=== PATIENT | male | born 1955 | race Two or more races ===

== ENCOUNTER 2016-03-31 | Inpatient (IN) | payer MEDICAID ==
[~2016-03-31] VITALS: Ht 180.3 cm; Wt 75.8 kg
[~2016-03-31] MED LIST: ACET-69 PO; ASCO500S2 GT; ATRO2DRO4 SL; BISA10SU8 RC; DIPH25TA25 GT; FOLI0.8T2 PO; GABA-532 PO; GLUC1KIT IM; HEPA0.5D3 SQ; INSU100V27 SQ; INSU3INS6 SQ; MOME17SP BNOSTRILS; MONT10TA22 PO; MYLANTA PO; NAPH1POW3 GT; ONDA4TAB10 PO; PROM6.25 PO; SITA50TA PO; SORB30SO2 PO; TEMA30CA PO; TYL2T PO
--- NOTE | 2016-04-02 08:00 | NUR ---
Please see resident's previous account [id number] for all assessments and nurses notes. Originally admitted on 01/31/2014.
[2016-04-02] MEDS ORDERED: PANTOPRAZOLE 40 MG TABLET.DR PO SCH (11:02)
[2016-04-02] MEDS ORDERED: BUDESONIDE RESPULE INH 0.5 MG/2 ML AMPUL.NEB IH PRN (11:02)
[2016-04-02] MEDS ORDERED: IPRATROPIUM NEB FS 0.5 MG/2.5 ML AMPUL.NEB IH SCH (11:02)
[2016-04-02] MEDS ORDERED: BLOOD SUGAR DIAGNOSTIC 1 EACH STRIP VI SCH (11:02)
[2016-04-02] MEDS ORDERED: DEXTROSE 50%-WATER 50 ML DISP.SYRIN IVP PRN (11:02)
[2016-04-02] MEDS ORDERED: ATROPINE SULFATE OPHTH SOLN 15 ML BOTTLE SL PRN (11:02)
[2016-04-02] MEDS ORDERED: GLUCAGON,HUMAN RECOMBINANT 1 MG/VIAL VIAL IM PRN (11:02)
[2016-04-02] MEDS ORDERED: TEMAZEPAM 30 MG CAPSULE PO SCH (11:02)
[2016-04-02] MEDS ORDERED: GABAPENTIN 300 MG CAPSULE PO SCH (11:02)
[2016-04-02] MEDS ORDERED: PROSOURCE / PROSTAT (PYXIS) 30 ML UDC PO SCH (11:02)
[2016-04-02] MEDS ORDERED: ALBUTEROL FS 2.5 MG/3 ML VIAL.NEB NEB SCH (11:02)
[2016-04-02] MEDS ORDERED: POLYVINYL ALCOHOL 15 ML BOTTLE EACHEYE SCH (11:02)
[2016-04-02] MEDS ORDERED: HYDROGEN PEROXIDE 480 ML BOTTLE TP PRN (11:02)
[2016-04-02] MEDS ORDERED: INSULIN DETEMIR 100 UNIT/ML CARTRIDGE SQ SCH (11:02)
[2016-04-02] MEDS ORDERED: TUBERCULIN,PURIF.PROT.DERIV. 5 TU/0.1 ML VIAL ID SCH (11:02)
[2016-04-02] MEDS ORDERED: SORBITOL SOLUTION 30 ML PO PRN (11:02)
[2016-04-02] MEDS ORDERED: MONTELUKAST SODIUM (10MG) 10 MG TABLET PO SCH (11:02)
--- NOTE | 2016-04-02 11:17 | NUR ---
Please see resident's previous account [id number] for Social Service assessments, evaluations and notes.
[2016-04-02] MEDS: BLOOD SUGAR DIAGNOSTIC 1 EACH STRIP VI SCH ×3 (12:00→22:15)
[2016-04-02] MEDS: GABAPENTIN 300 MG CAPSULE PO SCH ×2 (13:00→16:54)
[2016-04-02] MEDS: POLYVINYL ALCOHOL 15 ML BOTTLE EACHEYE SCH ×3 (13:00→21:00)
[2016-04-02] MEDS: PROSOURCE / PROSTAT (PYXIS) 30 ML UDC PO SCH ×2 (13:00→16:54)
[2016-04-02] MEDS: ALBUTEROL FS 2.5 MG/3 ML VIAL.NEB NEB SCH ×2 (14:03→19:36)
[2016-04-02] MEDS: IPRATROPIUM NEB FS 0.5 MG/2.5 ML AMPUL.NEB IH SCH ×2 (14:03→19:36)
[2016-04-02] MEDS: GUAIFENESIN/D-METHORPHAN HB 5 ML UDC PO PRN (14:32)
[2016-04-02] MEDS: diphenhydrAMINE HCL ELIX 25 MG/10 ML UDC PO PRN (14:32)
[2016-04-02] MEDS: MAG HYDROX/AL HYDROX/SIMETH 30 ML UDC PO PRN (14:33)
[2016-04-02 16:00] VITALS: BP 144/82
[2016-04-02] MEDS: INSULIN LISPRO/ASPART 100 UNIT/ML CARTRIDGE SQ PRN (16:57)
[2016-04-02] MEDS: BUDESONIDE RESPULE INH 0.5 MG/2 ML AMPUL.NEB IH SCH (19:37)
[2016-04-02 19:53] VITALS: BP 139/93
[2016-04-02] MEDS: HYDROGEN PEROXIDE 480 ML BOTTLE TP SCH (21:00)
[2016-04-02] MEDS: NEOMY SULF/BACITRAC ZN/POLY 15 GM TUBE TP SCH (21:00)
[2016-04-02] MEDS: ZINC OXIDE 56.7 GM TUBE TP SCH ×2 (21:00)
[2016-04-02] MEDS: MINERAL OIL/PETROL OINT 396 GM JAR TP SCH (21:00)
[2016-04-02] MEDS: Z GUARD REMEDY 4 OZ OINT TP SCH (21:00)
[2016-04-02] MEDS: MONTELUKAST SODIUM (10MG) 10 MG TABLET PO SCH (22:14)
[2016-04-02] MEDS: TEMAZEPAM 30 MG CAPSULE PO SCH (22:14)
[2016-04-02] MEDS: INSULIN DETEMIR 100 UNIT/ML CARTRIDGE SQ SCH (22:14)
[2016-04-03] MEDS: IPRATROPIUM NEB FS 0.5 MG/2.5 ML AMPUL.NEB IH SCH ×4 (01:48→19:57)
[2016-04-03] MEDS: ALBUTEROL FS 2.5 MG/3 ML VIAL.NEB NEB SCH ×4 (01:48→19:57)
[2016-04-03] MEDS: PANTOPRAZOLE 40 MG TABLET.DR PO SCH (06:42)
[2016-04-03] MEDS: BLOOD SUGAR DIAGNOSTIC 1 EACH STRIP VI SCH ×4 (07:30→21:18)
[2016-04-03] MEDS: INSULIN LISPRO/ASPART 100 UNIT/ML CARTRIDGE SQ PRN ×3 (07:30→16:37)
[2016-04-03] MEDS: diphenhydrAMINE HCL ELIX 25 MG/10 ML UDC PO PRN ×2 (07:37→16:56)
[2016-04-03] MEDS: TRAMADOL HCL 50 MG TABLET PO PRN (07:38)
[2016-04-03] MEDS: GUAIFENESIN/D-METHORPHAN HB 5 ML UDC PO PRN ×2 (07:38→16:56)
[2016-04-03 08:09] VITALS: BP 143/79
[2016-04-03] MEDS: BUDESONIDE RESPULE INH 0.5 MG/2 ML AMPUL.NEB IH SCH ×2 (08:11→20:30)
[2016-04-03] MEDS: HYDROGEN PEROXIDE 480 ML BOTTLE TP SCH ×2 (08:37→20:53)
[2016-04-03] MEDS: POLYVINYL ALCOHOL 15 ML BOTTLE EACHEYE SCH ×4 (08:37→20:53)
[2016-04-03] MEDS: GABAPENTIN 300 MG CAPSULE PO SCH ×3 (08:37→16:36)
[2016-04-03] MEDS: DOCUSATE SODIUM 100 MG CAPSULE PO SCH (08:37)
[2016-04-03] MEDS: PROSOURCE / PROSTAT (PYXIS) 30 ML UDC PO SCH ×3 (08:37→16:36)
[2016-04-03] MEDS: VIT B CMPLX 3/FA/VIT C/BIOTIN 1 TAB TABLET PO SCH (08:37)
[2016-04-03] MEDS: SITAGLIPTIN PHOSPHATE 25 MG TABLET PO SCH (08:37)
[2016-04-03] MEDS: ASCORBIC ACID 500 MG TABLET PO SCH (08:37)
[2016-04-03] MEDS: MINERAL OIL/PETROL OINT 396 GM JAR TP SCH ×2 (08:37→20:53)
[2016-04-03] MEDS: NEOMY SULF/BACITRAC ZN/POLY 15 GM TUBE TP SCH ×2 (08:38→20:53)
[2016-04-03] MEDS: ZINC OXIDE 56.7 GM TUBE TP SCH ×4 (08:38→20:53)
[2016-04-03] MEDS: Z GUARD REMEDY 4 OZ OINT TP SCH ×2 (08:38→20:53)
[2016-04-03 19:47] VITALS: BP 134/84
[2016-04-03] MEDS: TEMAZEPAM 30 MG CAPSULE PO SCH (21:17)
[2016-04-03] MEDS: MONTELUKAST SODIUM (10MG) 10 MG TABLET PO SCH (21:17)
[2016-04-03] MEDS: INSULIN DETEMIR 100 UNIT/ML CARTRIDGE SQ SCH (21:18)
[2016-04-04] MEDS: IPRATROPIUM NEB FS 0.5 MG/2.5 ML AMPUL.NEB IH SCH ×4 (01:43→20:11)
[2016-04-04] MEDS: ALBUTEROL FS 2.5 MG/3 ML VIAL.NEB NEB SCH ×4 (01:43→20:11)
[2016-04-04] MEDS: PANTOPRAZOLE 40 MG TABLET.DR PO SCH (06:00)
[2016-04-04] MEDS: BLOOD SUGAR DIAGNOSTIC 1 EACH STRIP VI SCH ×4 (07:35→21:09)
[2016-04-04 07:44] VITALS: BP 142/92
[2016-04-04] MEDS: DOCUSATE SODIUM 100 MG CAPSULE PO SCH (08:38)
[2016-04-04] MEDS: POLYVINYL ALCOHOL 15 ML BOTTLE EACHEYE SCH ×4 (08:38→20:14)
[2016-04-04] MEDS: SITAGLIPTIN PHOSPHATE 25 MG TABLET PO SCH (08:39)
[2016-04-04] MEDS: GABAPENTIN 300 MG CAPSULE PO SCH ×3 (08:40→17:20)
[2016-04-04] MEDS: HYDROGEN PEROXIDE 480 ML BOTTLE TP SCH ×2 (08:40→20:14)
[2016-04-04] MEDS: PROSOURCE / PROSTAT (PYXIS) 30 ML UDC PO SCH ×3 (08:40→17:20)
[2016-04-04] MEDS: VIT B CMPLX 3/FA/VIT C/BIOTIN 1 TAB TABLET PO SCH (08:40)
[2016-04-04] MEDS: ASCORBIC ACID 500 MG TABLET PO SCH (08:40)
[2016-04-04] MEDS: MINERAL OIL/PETROL OINT 396 GM JAR TP SCH ×2 (08:40→20:14)
[2016-04-04] MEDS: NEOMY SULF/BACITRAC ZN/POLY 15 GM TUBE TP SCH ×2 (08:41→20:15)
[2016-04-04] MEDS: Z GUARD REMEDY 4 OZ OINT TP SCH ×2 (08:41→20:15)
[2016-04-04] MEDS: ZINC OXIDE 56.7 GM TUBE TP SCH ×4 (08:41→20:15)
[2016-04-04] MEDS: GUAIFENESIN/D-METHORPHAN HB 5 ML UDC PO PRN ×2 (08:46→20:39)
[2016-04-04] MEDS: BUDESONIDE RESPULE INH 0.5 MG/2 ML AMPUL.NEB IH SCH ×2 (08:57→20:34)
[2016-04-04] MEDS: BISACODYL SUPP (10 MG) 10 MG/SUPP.RECT SUPP.RECT RC PRN (15:46)
[2016-04-04] MEDS: INSULIN LISPRO/ASPART 100 UNIT/ML CARTRIDGE SQ PRN (17:20)
[2016-04-04 20:19] VITALS: BP 152/97
--- NOTE | 2016-04-04 20:48 | NUR ---
Pt seen by Radha Petty MIRROR SILVERER,no new order.
[2016-04-04] MEDS: MONTELUKAST SODIUM (10MG) 10 MG TABLET PO SCH (21:08)
[2016-04-04] MEDS: TEMAZEPAM 30 MG CAPSULE PO SCH (21:08)
[2016-04-04] MEDS: INSULIN DETEMIR 100 UNIT/ML CARTRIDGE SQ SCH (21:09)
[2016-04-05] MEDS: IPRATROPIUM NEB FS 0.5 MG/2.5 ML AMPUL.NEB IH SCH ×4 (02:02→19:26)
[2016-04-05] MEDS: ALBUTEROL FS 2.5 MG/3 ML VIAL.NEB NEB SCH ×4 (02:02→19:26)
[2016-04-05] MEDS: PANTOPRAZOLE 40 MG TABLET.DR PO SCH (06:35)
[2016-04-05] MEDS: BLOOD SUGAR DIAGNOSTIC 1 EACH STRIP VI SCH ×4 (06:40→21:25)
[2016-04-05] MEDS: INSULIN LISPRO/ASPART 100 UNIT/ML CARTRIDGE SQ PRN ×3 (06:41→17:01)
[2016-04-05] MEDS: PROSOURCE / PROSTAT (PYXIS) 30 ML UDC PO SCH ×3 (08:10→17:01)
[2016-04-05] MEDS: VIT B CMPLX 3/FA/VIT C/BIOTIN 1 TAB TABLET PO SCH (08:10)
[2016-04-05] MEDS: ASCORBIC ACID 500 MG TABLET PO SCH (08:10)
[2016-04-05] MEDS: HYDROGEN PEROXIDE 480 ML BOTTLE TP SCH ×2 (08:10→21:24)
[2016-04-05] MEDS: NEOMY SULF/BACITRAC ZN/POLY 15 GM TUBE TP SCH ×2 (08:10→21:24)
[2016-04-05] MEDS: SITAGLIPTIN PHOSPHATE 25 MG TABLET PO SCH (08:10)
[2016-04-05] MEDS: POLYVINYL ALCOHOL 15 ML BOTTLE EACHEYE SCH ×4 (08:10→21:24)
[2016-04-05] MEDS: MINERAL OIL/PETROL OINT 396 GM JAR TP SCH ×2 (08:10→21:24)
[2016-04-05] MEDS: DOCUSATE SODIUM 100 MG CAPSULE PO SCH (08:10)
[2016-04-05] MEDS: GABAPENTIN 300 MG CAPSULE PO SCH ×3 (08:10→17:01)
[2016-04-05 08:11] VITALS: BP 153/84
[2016-04-05] MEDS: GUAIFENESIN/D-METHORPHAN HB 5 ML UDC PO PRN ×2 (08:11→21:27)
[2016-04-05] MEDS: ZINC OXIDE 56.7 GM TUBE TP SCH ×4 (08:11→21:25)
[2016-04-05] MEDS: Z GUARD REMEDY 4 OZ OINT TP SCH ×2 (08:11→21:25)
[2016-04-05] MEDS: diphenhydrAMINE HCL ELIX 25 MG/10 ML UDC PO PRN ×2 (08:11→21:26)
[2016-04-05] MEDS: BUDESONIDE RESPULE INH 0.5 MG/2 ML AMPUL.NEB IH SCH ×2 (09:52→21:40)
--- NOTE | 2016-04-05 10:47 | NUR ---
Seen and examined by Dr. Helen Prieto, made her aware of 3.6 lbs weight gain from last month (2015 177.4 - Mar 2016 181.0). Dr. Prieto explained to resident that he is gaining weight and the importance of cutting his fluid intake. Resident nodded in agreement with the importance of complying with the fluid restriction. He was also noted with thick dry flaky scalp, although he was taken to the shower room and SECOND CLASS WELDER removed some of the dry flaky scalp a lot more remain in his scalp. Resident requested to cut his hair short, SSD to arrange for haircut. Resident acknowledged the importance of taking a regular shower.
[2016-04-05 19:45] VITALS: BP 138/83
[2016-04-05] MEDS: MONTELUKAST SODIUM (10MG) 10 MG TABLET PO SCH (21:25)
[2016-04-05] MEDS: TEMAZEPAM 30 MG CAPSULE PO SCH (21:25)
[2016-04-05] MEDS: INSULIN DETEMIR 100 UNIT/ML CARTRIDGE SQ SCH (21:25)
[2016-04-05] MEDS: TRAMADOL HCL 50 MG TABLET PO PRN (21:57)
[2016-04-06] MEDS: IPRATROPIUM NEB FS 0.5 MG/2.5 ML AMPUL.NEB IH SCH ×4 (02:17→19:39)
[2016-04-06] MEDS: ALBUTEROL FS 2.5 MG/3 ML VIAL.NEB NEB SCH ×4 (02:17→19:39)
[2016-04-06] MEDS: PANTOPRAZOLE 40 MG TABLET.DR PO SCH (06:21)
[2016-04-06] MEDS: BLOOD SUGAR DIAGNOSTIC 1 EACH STRIP VI SCH ×4 (07:08→21:48)
[2016-04-06] MEDS: diphenhydrAMINE HCL ELIX 25 MG/10 ML UDC PO PRN ×3 (07:09→20:24)
[2016-04-06] MEDS: INSULIN LISPRO/ASPART 100 UNIT/ML CARTRIDGE SQ PRN ×3 (07:09→21:49)
[2016-04-06] MEDS: GUAIFENESIN/D-METHORPHAN HB 5 ML UDC PO PRN ×2 (07:31→21:51)
[2016-04-06] MEDS: TRAMADOL HCL 50 MG TABLET PO PRN ×2 (07:35→21:50)
[2016-04-06 07:41] VITALS: BP 146/88
[2016-04-06] MEDS: BUDESONIDE RESPULE INH 0.5 MG/2 ML AMPUL.NEB IH SCH ×2 (08:06→20:01)
[2016-04-06] MEDS: SITAGLIPTIN PHOSPHATE 25 MG TABLET PO SCH (09:22)
[2016-04-06] MEDS: DOCUSATE SODIUM 100 MG CAPSULE PO SCH (09:22)
[2016-04-06] MEDS: POLYVINYL ALCOHOL 15 ML BOTTLE EACHEYE SCH ×4 (09:22→21:47)
[2016-04-06] MEDS: NEOMY SULF/BACITRAC ZN/POLY 15 GM TUBE TP SCH ×2 (09:23→21:47)
[2016-04-06] MEDS: ZINC OXIDE 56.7 GM TUBE TP SCH ×4 (09:23→21:47)
[2016-04-06] MEDS: VIT B CMPLX 3/FA/VIT C/BIOTIN 1 TAB TABLET PO SCH (09:23)
[2016-04-06] MEDS: ASCORBIC ACID 500 MG TABLET PO SCH (09:23)
[2016-04-06] MEDS: Z GUARD REMEDY 4 OZ OINT TP SCH (09:23)
[2016-04-06] MEDS: PROSOURCE / PROSTAT (PYXIS) 30 ML UDC PO SCH ×3 (09:23→17:00)
[2016-04-06] MEDS: MINERAL OIL/PETROL OINT 396 GM JAR TP SCH ×2 (09:23→21:47)
[2016-04-06] MEDS: HYDROGEN PEROXIDE 480 ML BOTTLE TP SCH ×2 (09:23→21:47)
[2016-04-06] MEDS: GABAPENTIN 300 MG CAPSULE PO SCH ×3 (09:23→17:00)
--- NOTE | 2016-04-06 15:00 | NUR ---
Resident left for dialysis at this time, delay in schedule is due to availability of therapist from ambulance company. Resident stable in no signs of distress.
[2016-04-06 20:05] VITALS: BP 130/89
[2016-04-06] MEDS: MONTELUKAST SODIUM (10MG) 10 MG TABLET PO SCH (21:47)
[2016-04-06] MEDS: TEMAZEPAM 30 MG CAPSULE PO SCH (21:47)
[2016-04-06] MEDS: INSULIN DETEMIR 100 UNIT/ML CARTRIDGE SQ SCH (21:48)
[2016-04-07] MEDS: ALBUTEROL FS 2.5 MG/3 ML VIAL.NEB NEB SCH ×4 (02:03→20:04)
[2016-04-07] MEDS: IPRATROPIUM NEB FS 0.5 MG/2.5 ML AMPUL.NEB IH SCH ×4 (02:03→20:04)
[2016-04-07] MEDS: PANTOPRAZOLE 40 MG TABLET.DR PO SCH (06:00)
[2016-04-07] MEDS: INSULIN LISPRO/ASPART 100 UNIT/ML CARTRIDGE SQ PRN ×3 (07:04→21:17)
[2016-04-07] MEDS: BLOOD SUGAR DIAGNOSTIC 1 EACH STRIP VI SCH ×4 (07:04→21:16)
[2016-04-07 07:32] VITALS: BP 131/87
[2016-04-07] MEDS: BUDESONIDE RESPULE INH 0.5 MG/2 ML AMPUL.NEB IH SCH ×2 (08:09→19:51)
--- NOTE | 2016-04-07 08:20 | NUR ---
RT PATIENT RECEIVED TRACHED ON COOL AEROSOL VIA GUARDADO JORGE WELL. RESP TX'S GIVEN ORDERED JORGE WELL. TRACH SECURE AND IN PROPER POSITION. SX'D WITH MOD AMT PALE SEMITHICK SECRETIONS. B/S DIM RHONCHI. PATIENT IN NO DISTRESS OR SOB AT THIS TIME. BACK UP TRACH AND AMBU BAG AT [facility]. CONTINUE CURRENT PLAN OF RESP CARE.
[2016-04-07] MEDS: POLYVINYL ALCOHOL 15 ML BOTTLE EACHEYE SCH ×4 (08:47→20:03)
[2016-04-07] MEDS: GABAPENTIN 300 MG CAPSULE PO SCH ×3 (08:47→17:08)
[2016-04-07] MEDS: VIT B CMPLX 3/FA/VIT C/BIOTIN 1 TAB TABLET PO SCH (08:47)
[2016-04-07] MEDS: SITAGLIPTIN PHOSPHATE 25 MG TABLET PO SCH (08:47)
[2016-04-07] MEDS: ASCORBIC ACID 500 MG TABLET PO SCH (08:47)
[2016-04-07] MEDS: DOCUSATE SODIUM 100 MG CAPSULE PO SCH (08:47)
[2016-04-07] MEDS: PROSOURCE / PROSTAT (PYXIS) 30 ML UDC PO SCH ×3 (08:47→17:08)
[2016-04-07] MEDS: GUAIFENESIN/D-METHORPHAN HB 5 ML UDC PO PRN (09:00)
[2016-04-07] MEDS: ZINC OXIDE 56.7 GM TUBE TP SCH ×4 (09:41→20:04)
[2016-04-07] MEDS: MINERAL OIL/PETROL OINT 396 GM JAR TP SCH ×2 (09:41→20:03)
[2016-04-07] MEDS: HYDROGEN PEROXIDE 480 ML BOTTLE TP SCH ×2 (09:41→20:03)
[2016-04-07] MEDS: NEOMY SULF/BACITRAC ZN/POLY 15 GM TUBE TP SCH ×3 (09:41→20:04)
[2016-04-07] MEDS: diphenhydrAMINE HCL ELIX 25 MG/10 ML UDC PO PRN (15:00)
[2016-04-07 20:00] VITALS: BP 136/81
[2016-04-07] MEDS: TEMAZEPAM 30 MG CAPSULE PO SCH (21:15)
[2016-04-07] MEDS: MONTELUKAST SODIUM (10MG) 10 MG TABLET PO SCH (21:15)
[2016-04-07] MEDS: INSULIN DETEMIR 100 UNIT/ML CARTRIDGE SQ SCH (21:16)
[2016-04-08] MEDS: ALBUTEROL FS 2.5 MG/3 ML VIAL.NEB NEB SCH ×4 (01:45→19:51)
[2016-04-08] MEDS: IPRATROPIUM NEB FS 0.5 MG/2.5 ML AMPUL.NEB IH SCH ×4 (01:45→19:51)
[2016-04-08] MEDS: PANTOPRAZOLE 40 MG TABLET.DR PO SCH (05:48)
[2016-04-08] MEDS: BLOOD SUGAR DIAGNOSTIC 1 EACH STRIP VI SCH ×4 (08:00→21:07)
[2016-04-08] MEDS: INSULIN LISPRO/ASPART 100 UNIT/ML CARTRIDGE SQ PRN ×4 (08:00→21:07)
[2016-04-08] MEDS: BUDESONIDE RESPULE INH 0.5 MG/2 ML AMPUL.NEB IH SCH ×2 (08:04→20:03)
[2016-04-08] MEDS: DOCUSATE SODIUM 100 MG CAPSULE PO SCH (08:08)
[2016-04-08] MEDS: POLYVINYL ALCOHOL 15 ML BOTTLE EACHEYE SCH ×4 (08:08→21:06)
[2016-04-08 08:09] VITALS: BP 136/86
[2016-04-08] MEDS: MINERAL OIL/PETROL OINT 396 GM JAR TP SCH ×2 (08:09→21:06)
[2016-04-08] MEDS: ASCORBIC ACID 500 MG TABLET PO SCH (08:09)
[2016-04-08] MEDS: PROSOURCE / PROSTAT (PYXIS) 30 ML UDC PO SCH ×3 (08:09→17:28)
[2016-04-08] MEDS: SITAGLIPTIN PHOSPHATE 25 MG TABLET PO SCH (08:09)
[2016-04-08] MEDS: GABAPENTIN 300 MG CAPSULE PO SCH ×3 (08:09→17:28)
[2016-04-08] MEDS: VIT B CMPLX 3/FA/VIT C/BIOTIN 1 TAB TABLET PO SCH (08:09)
[2016-04-08] MEDS: GUAIFENESIN/D-METHORPHAN HB 5 ML UDC PO PRN ×2 (08:22→21:07)
--- NOTE | 2016-04-08 08:25 | NUR ---
RT PATIENT RECEIVED TRACHED ON COOL AEROSOL VIA GUARDADO JORGE WELL. RESP TX'S GIVEN ORDERED JORGE WELL. TRACH SECURE AND IN PROPER POSITION. SX'D WITH MOD AMT PALE SEMITHICK SECRETIONS. B/S DIM RHONCHI. PATIENT IN NO DISTRESS OR SOB AT THIS TIME. BACK UP TRACH AND AMBU BAG AT [facility]. CONTINUE CURRENT PLAN OF RESP CARE.
[2016-04-08] MEDS: diphenhydrAMINE HCL ELIX 25 MG/10 ML UDC PO PRN ×2 (08:38→21:07)
[2016-04-08] MEDS: ZINC OXIDE 56.7 GM TUBE TP SCH ×4 (09:00→21:07)
[2016-04-08] MEDS: NEOMY SULF/BACITRAC ZN/POLY 15 GM TUBE TP SCH ×2 (09:00→21:07)
[2016-04-08] MEDS: HYDROGEN PEROXIDE 480 ML BOTTLE TP SCH ×2 (09:00→21:06)
--- NOTE | 2016-04-08 14:15 | NUR ---
Kanwal spoke to resident who asked for legal resources. SW provided resident with legal resources (patent paralegal and pro gaudencio services). SW stated to resident that she can help him call but explained to him that vp software stated resident's big toe's are crooked because he has not walked for several years. Resident however believes that when previous vp software pulled off his toe nail, this affected his toes. Dr. Eli explained that resident has to start walking if he wants his feet to stay strong and become healthier. SW was told by RNA that resident was only able to tolerate 10 seconds of walking today and then wanted to be back in his bed. KANWAL spoke to resident and encouraged him to try walking with RNA assistance as much as he can tolerate. SW noted that she will check back in with resident to see if he wants to follow through with legal resources. Resident acknowledged information given. He was also able to sign off on admission paperwork.
[2016-04-08 20:07] VITALS: BP 138/68
[2016-04-08] MEDS: MONTELUKAST SODIUM (10MG) 10 MG TABLET PO SCH (21:07)
[2016-04-08] MEDS: TEMAZEPAM 30 MG CAPSULE PO SCH (21:07)
[2016-04-08] MEDS: INSULIN DETEMIR 100 UNIT/ML CARTRIDGE SQ SCH (21:21)
--- NOTE | 2016-04-08 21:21 | NUR ---
RATE CLERK Notes: Pt's BS 85. Levemir Insulin 10 units was held. Charge nurse made aware.
[2016-04-09] MEDS: ALBUTEROL FS 2.5 MG/3 ML VIAL.NEB NEB SCH ×4 (01:13→19:30)
[2016-04-09] MEDS: IPRATROPIUM NEB FS 0.5 MG/2.5 ML AMPUL.NEB IH SCH ×4 (01:13→19:30)
[2016-04-09] MEDS: BLOOD SUGAR DIAGNOSTIC 1 EACH STRIP VI SCH ×4 (06:39→21:21)
[2016-04-09] MEDS: PANTOPRAZOLE 40 MG TABLET.DR PO SCH (06:39)
[2016-04-09] MEDS: INSULIN LISPRO/ASPART 100 UNIT/ML CARTRIDGE SQ PRN ×3 (06:40→21:23)
[2016-04-09 07:45] VITALS: BP 136/89
[2016-04-09] MEDS: POLYVINYL ALCOHOL 15 ML BOTTLE EACHEYE SCH ×4 (08:13→21:19)
[2016-04-09] MEDS: VIT B CMPLX 3/FA/VIT C/BIOTIN 1 TAB TABLET PO SCH (08:13)
[2016-04-09] MEDS: SITAGLIPTIN PHOSPHATE 25 MG TABLET PO SCH (08:13)
[2016-04-09] MEDS: GABAPENTIN 300 MG CAPSULE PO SCH ×3 (08:13→17:00)
[2016-04-09] MEDS: PROSOURCE / PROSTAT (PYXIS) 30 ML UDC PO SCH ×3 (08:13→17:00)
[2016-04-09] MEDS: ASCORBIC ACID 500 MG TABLET PO SCH (08:13)
[2016-04-09] MEDS: DOCUSATE SODIUM 100 MG CAPSULE PO SCH (08:13)
[2016-04-09] MEDS: diphenhydrAMINE HCL ELIX 25 MG/10 ML UDC PO PRN (08:28)
[2016-04-09] MEDS: BUDESONIDE RESPULE INH 0.5 MG/2 ML AMPUL.NEB IH SCH ×2 (08:28→21:25)
--- NOTE | 2016-04-09 08:50 | NUR ---
SW accompanied RNA and LIAISON ENGINEER to resident's room as RNA was preparing to get resident ready to walk. Resident was not willing to participate in walking activities and stated to SW that his feet were hurting. He preferred to be placed back into his bed. Resident was willing to have RNA place resident's boots on his feet. Resident preparing to leave for dialysis.
[2016-04-09] MEDS: ZINC OXIDE 56.7 GM TUBE TP SCH ×4 (13:50→21:20)
[2016-04-09] MEDS: HYDROGEN PEROXIDE 480 ML BOTTLE TP SCH ×2 (13:50→21:19)
[2016-04-09] MEDS: MINERAL OIL/PETROL OINT 396 GM JAR TP SCH ×2 (13:50→21:19)
[2016-04-09] MEDS: NEOMY SULF/BACITRAC ZN/POLY 15 GM TUBE TP SCH ×2 (13:50→21:20)
[2016-04-09] MEDS: GUAIFENESIN/D-METHORPHAN HB 5 ML UDC PO PRN (14:41)
[2016-04-09 20:38] VITALS: BP 138/88
[2016-04-09] MEDS: TEMAZEPAM 30 MG CAPSULE PO SCH (21:20)
[2016-04-09] MEDS: MONTELUKAST SODIUM (10MG) 10 MG TABLET PO SCH (21:20)
[2016-04-09] MEDS: INSULIN DETEMIR 100 UNIT/ML CARTRIDGE SQ SCH (21:21)
[2016-04-10] MEDS: ALBUTEROL FS 2.5 MG/3 ML VIAL.NEB NEB SCH ×4 (00:56→19:30)
[2016-04-10] MEDS: IPRATROPIUM NEB FS 0.5 MG/2.5 ML AMPUL.NEB IH SCH ×4 (00:56→19:30)
[2016-04-10] MEDS: PANTOPRAZOLE 40 MG TABLET.DR PO SCH (05:42)
[2016-04-10] MEDS: BLOOD SUGAR DIAGNOSTIC 1 EACH STRIP VI SCH ×4 (07:06→21:34)
[2016-04-10 07:37] VITALS: BP 146/86
[2016-04-10] MEDS: BUDESONIDE RESPULE INH 0.5 MG/2 ML AMPUL.NEB IH SCH ×2 (08:59→20:36)
[2016-04-10] MEDS: ASCORBIC ACID 500 MG TABLET PO SCH (09:29)
[2016-04-10] MEDS: DOCUSATE SODIUM 100 MG CAPSULE PO SCH (09:29)
[2016-04-10] MEDS: POLYVINYL ALCOHOL 15 ML BOTTLE EACHEYE SCH ×4 (09:29→20:19)
[2016-04-10] MEDS: GABAPENTIN 300 MG CAPSULE PO SCH ×3 (09:29→17:08)
[2016-04-10] MEDS: PROSOURCE / PROSTAT (PYXIS) 30 ML UDC PO SCH ×3 (09:29→17:09)
[2016-04-10] MEDS: SITAGLIPTIN PHOSPHATE 25 MG TABLET PO SCH (09:29)
[2016-04-10] MEDS: VIT B CMPLX 3/FA/VIT C/BIOTIN 1 TAB TABLET PO SCH (09:29)
[2016-04-10] MEDS: HYDROGEN PEROXIDE 480 ML BOTTLE TP SCH ×2 (09:30→20:19)
[2016-04-10] MEDS: NEOMY SULF/BACITRAC ZN/POLY 15 GM TUBE TP SCH ×2 (09:30→20:19)
[2016-04-10] MEDS: ZINC OXIDE 56.7 GM TUBE TP SCH ×4 (09:30→20:19)
[2016-04-10] MEDS: MINERAL OIL/PETROL OINT 396 GM JAR TP SCH ×2 (09:30→20:19)
[2016-04-10] MEDS: INSULIN LISPRO/ASPART 100 UNIT/ML CARTRIDGE SQ PRN ×2 (11:56→21:39)
--- NOTE | 2016-04-10 14:00 | NUR ---
Seen and examined by Radha Petty NP, no new order given.
[2016-04-10 20:00] VITALS: BP 131/86
[2016-04-10] MEDS: diphenhydrAMINE HCL ELIX 25 MG/10 ML UDC PO PRN (20:19)
[2016-04-10] MEDS: MONTELUKAST SODIUM (10MG) 10 MG TABLET PO SCH (21:33)
[2016-04-10] MEDS: TEMAZEPAM 30 MG CAPSULE PO SCH (21:33)
[2016-04-10] MEDS: INSULIN DETEMIR 100 UNIT/ML CARTRIDGE SQ SCH (21:34)
[2016-04-11] MEDS: IPRATROPIUM NEB FS 0.5 MG/2.5 ML AMPUL.NEB IH SCH ×4 (01:44→20:16)
[2016-04-11] MEDS: ALBUTEROL FS 2.5 MG/3 ML VIAL.NEB NEB SCH ×4 (01:44→20:16)
[2016-04-11] MEDS: PANTOPRAZOLE 40 MG TABLET.DR PO SCH (05:35)
[2016-04-11 07:57] VITALS: BP 125/81
[2016-04-11] MEDS: BUDESONIDE RESPULE INH 0.5 MG/2 ML AMPUL.NEB IH SCH ×2 (08:20→20:16)
[2016-04-11] MEDS: ASCORBIC ACID 500 MG TABLET PO SCH (08:46)
[2016-04-11] MEDS: MINERAL OIL/PETROL OINT 396 GM JAR TP SCH ×2 (08:46→21:49)
[2016-04-11] MEDS: PROSOURCE / PROSTAT (PYXIS) 30 ML UDC PO SCH ×3 (08:46→16:17)
[2016-04-11] MEDS: SITAGLIPTIN PHOSPHATE 25 MG TABLET PO SCH (08:46)
[2016-04-11] MEDS: GABAPENTIN 300 MG CAPSULE PO SCH ×3 (08:46→16:17)
[2016-04-11] MEDS: HYDROGEN PEROXIDE 480 ML BOTTLE TP SCH ×2 (08:46→21:49)
[2016-04-11] MEDS: ZINC OXIDE 56.7 GM TUBE TP SCH ×4 (08:46→21:49)
[2016-04-11] MEDS: NEOMY SULF/BACITRAC ZN/POLY 15 GM TUBE TP SCH ×2 (08:46→21:49)
[2016-04-11] MEDS: POLYVINYL ALCOHOL 15 ML BOTTLE EACHEYE SCH ×4 (08:46→21:49)
[2016-04-11] MEDS: VIT B CMPLX 3/FA/VIT C/BIOTIN 1 TAB TABLET PO SCH (08:46)
[2016-04-11] MEDS: DOCUSATE SODIUM 100 MG CAPSULE PO SCH (08:46)
[2016-04-11] MEDS: GUAIFENESIN/D-METHORPHAN HB 5 ML UDC PO PRN (08:47)
[2016-04-11] MEDS: diphenhydrAMINE HCL ELIX 25 MG/10 ML UDC PO PRN (08:47)
[2016-04-11] MEDS: MAG HYDROX/AL HYDROX/SIMETH 30 ML UDC PO PRN (08:49)
[2016-04-11] MEDS: BLOOD SUGAR DIAGNOSTIC 1 EACH STRIP VI SCH ×3 (12:00→21:50)
[2016-04-11] MEDS: TRAMADOL HCL 50 MG TABLET PO PRN (14:16)
[2016-04-11] MEDS: BISACODYL SUPP (10 MG) 10 MG/SUPP.RECT SUPP.RECT RC PRN (14:16)
[2016-04-11] MEDS: INSULIN LISPRO/ASPART 100 UNIT/ML CARTRIDGE SQ PRN ×2 (16:44→21:51)
[2016-04-11 20:16] VITALS: BP 125/86
[2016-04-11] MEDS: MONTELUKAST SODIUM (10MG) 10 MG TABLET PO SCH (21:49)
[2016-04-11] MEDS: TEMAZEPAM 30 MG CAPSULE PO SCH (21:49)
[2016-04-11] MEDS: INSULIN DETEMIR 100 UNIT/ML CARTRIDGE SQ SCH (21:50)
[2016-04-12] MEDS: GUAIFENESIN/D-METHORPHAN HB 5 ML UDC PO PRN ×2 (00:31→21:53)
[2016-04-12] MEDS: IPRATROPIUM NEB FS 0.5 MG/2.5 ML AMPUL.NEB IH SCH ×4 (02:22→20:23)
[2016-04-12] MEDS: ALBUTEROL FS 2.5 MG/3 ML VIAL.NEB NEB SCH ×4 (02:23→20:23)
[2016-04-12] MEDS: PANTOPRAZOLE 40 MG TABLET.DR PO SCH (06:29)
[2016-04-12] MEDS: BLOOD SUGAR DIAGNOSTIC 1 EACH STRIP VI SCH ×4 (07:09→21:53)
[2016-04-12] MEDS: INSULIN LISPRO/ASPART 100 UNIT/ML CARTRIDGE SQ PRN ×2 (07:10→12:24)
[2016-04-12 07:56] VITALS: BP 129/83
[2016-04-12] MEDS: BUDESONIDE RESPULE INH 0.5 MG/2 ML AMPUL.NEB IH SCH ×2 (08:05→20:23)
--- NOTE | 2016-04-12 08:05 | NUR ---
RT PATIENT RECEIVED TRACHED ON COOL AEROSOL VIA T-BAR JORGE WELL. RESP TX'S GIVEN ORDERED JORGE WELL. TRACH SECURE AND IN PROPER POSITION. SX'D WITH SMALL AMT PALE SEMITHICK SECRETIONS. B/S DIM. PATIENT IN NO DISTRESS OR SOB AT THIS TIME. BACK UP TRACH AND AMBU BAG AT [facility]. CONTINUE CURRENT PLAN OF RESP CARE.
[2016-04-12] MEDS: MINERAL OIL/PETROL OINT 396 GM JAR TP SCH ×2 (08:38→21:51)
[2016-04-12] MEDS: VIT B CMPLX 3/FA/VIT C/BIOTIN 1 TAB TABLET PO SCH (08:38)
[2016-04-12] MEDS: ASCORBIC ACID 500 MG TABLET PO SCH (08:38)
[2016-04-12] MEDS: PROSOURCE / PROSTAT (PYXIS) 30 ML UDC PO SCH ×3 (08:38→17:08)
[2016-04-12] MEDS: POLYVINYL ALCOHOL 15 ML BOTTLE EACHEYE SCH ×4 (08:38→21:51)
[2016-04-12] MEDS: GABAPENTIN 300 MG CAPSULE PO SCH ×3 (08:38→17:08)
[2016-04-12] MEDS: HYDROGEN PEROXIDE 480 ML BOTTLE TP SCH ×2 (08:38→21:51)
[2016-04-12] MEDS: SITAGLIPTIN PHOSPHATE 25 MG TABLET PO SCH (08:38)
[2016-04-12] MEDS: DOCUSATE SODIUM 100 MG CAPSULE PO SCH (08:38)
[2016-04-12] MEDS: ZINC OXIDE 56.7 GM TUBE TP SCH ×4 (08:39→21:51)
[2016-04-12] MEDS: NEOMY SULF/BACITRAC ZN/POLY 15 GM TUBE TP SCH ×2 (08:39→21:51)
[2016-04-12] MEDS: diphenhydrAMINE HCL ELIX 25 MG/10 ML UDC PO PRN (18:16)
[2016-04-12 19:59] VITALS: BP 135/85
[2016-04-12] MEDS: TEMAZEPAM 30 MG CAPSULE PO SCH (21:52)
[2016-04-12] MEDS: MONTELUKAST SODIUM (10MG) 10 MG TABLET PO SCH (21:52)
[2016-04-12] MEDS: INSULIN DETEMIR 100 UNIT/ML CARTRIDGE SQ SCH (21:53)
[2016-04-12] MEDS: TRAMADOL HCL 50 MG TABLET PO PRN (21:54)
[2016-04-13] MEDS: IPRATROPIUM NEB FS 0.5 MG/2.5 ML AMPUL.NEB IH SCH ×4 (02:27→19:38)
[2016-04-13] MEDS: ALBUTEROL FS 2.5 MG/3 ML VIAL.NEB NEB SCH ×4 (02:27→19:38)
[2016-04-13] MEDS: diphenhydrAMINE HCL ELIX 25 MG/10 ML UDC PO PRN ×2 (06:36→21:09)
[2016-04-13] MEDS: PANTOPRAZOLE 40 MG TABLET.DR PO SCH (06:36)
[2016-04-13] MEDS: BLOOD SUGAR DIAGNOSTIC 1 EACH STRIP VI SCH ×4 (06:55→21:08)
[2016-04-13] MEDS: INSULIN LISPRO/ASPART 100 UNIT/ML CARTRIDGE SQ PRN ×3 (06:55→21:09)
[2016-04-13 07:49] VITALS: BP 136/84
[2016-04-13] MEDS: BUDESONIDE RESPULE INH 0.5 MG/2 ML AMPUL.NEB IH SCH ×2 (07:57→20:01)
[2016-04-13] MEDS: ASCORBIC ACID 500 MG TABLET PO SCH (08:41)
[2016-04-13] MEDS: PROSOURCE / PROSTAT (PYXIS) 30 ML UDC PO SCH ×3 (08:41→17:32)
[2016-04-13] MEDS: SITAGLIPTIN PHOSPHATE 25 MG TABLET PO SCH (08:41)
[2016-04-13] MEDS: VIT B CMPLX 3/FA/VIT C/BIOTIN 1 TAB TABLET PO SCH (08:41)
[2016-04-13] MEDS: GABAPENTIN 300 MG CAPSULE PO SCH ×3 (08:41→17:32)
[2016-04-13] MEDS: GUAIFENESIN/D-METHORPHAN HB 5 ML UDC PO PRN ×2 (08:41→21:09)
[2016-04-13] MEDS: POLYVINYL ALCOHOL 15 ML BOTTLE EACHEYE SCH ×4 (08:41→21:08)
[2016-04-13] MEDS: MINERAL OIL/PETROL OINT 396 GM JAR TP SCH ×2 (08:41→21:07)
[2016-04-13] MEDS: DOCUSATE SODIUM 100 MG CAPSULE PO SCH (08:41)
[2016-04-13] MEDS: HYDROGEN PEROXIDE 480 ML BOTTLE TP SCH ×2 (08:41→21:07)
[2016-04-13] MEDS: ZINC OXIDE 56.7 GM TUBE TP SCH ×4 (08:42→21:08)
[2016-04-13] MEDS: NEOMY SULF/BACITRAC ZN/POLY 15 GM TUBE TP SCH ×2 (08:42→21:08)
[2016-04-13 19:47] VITALS: BP 128/87
[2016-04-13] MEDS: TEMAZEPAM 30 MG CAPSULE PO SCH (21:07)
[2016-04-13] MEDS: MONTELUKAST SODIUM (10MG) 10 MG TABLET PO SCH (21:08)
[2016-04-13] MEDS: INSULIN DETEMIR 100 UNIT/ML CARTRIDGE SQ SCH (21:08)
[2016-04-14] MEDS: IPRATROPIUM NEB FS 0.5 MG/2.5 ML AMPUL.NEB IH SCH ×4 (01:24→19:16)
[2016-04-14] MEDS: ALBUTEROL FS 2.5 MG/3 ML VIAL.NEB NEB SCH ×4 (01:24→19:16)
[2016-04-14] MEDS: BLOOD SUGAR DIAGNOSTIC 1 EACH STRIP VI SCH ×4 (06:34→21:17)
[2016-04-14] MEDS: PANTOPRAZOLE 40 MG TABLET.DR PO SCH (06:34)
[2016-04-14] MEDS: INSULIN LISPRO/ASPART 100 UNIT/ML CARTRIDGE SQ PRN ×4 (06:35→21:17)
[2016-04-14 08:30] VITALS: BP 131/87
[2016-04-14] MEDS: POLYVINYL ALCOHOL 15 ML BOTTLE EACHEYE SCH ×4 (08:34→21:08)
[2016-04-14] MEDS: DOCUSATE SODIUM 100 MG CAPSULE PO SCH (08:34)
[2016-04-14] MEDS: SITAGLIPTIN PHOSPHATE 25 MG TABLET PO SCH (08:35)
[2016-04-14] MEDS: VIT B CMPLX 3/FA/VIT C/BIOTIN 1 TAB TABLET PO SCH (08:35)
[2016-04-14] MEDS: GABAPENTIN 300 MG CAPSULE PO SCH ×3 (08:35→16:47)
[2016-04-14] MEDS: PROSOURCE / PROSTAT (PYXIS) 30 ML UDC PO SCH ×3 (08:36→16:47)
[2016-04-14] MEDS: MINERAL OIL/PETROL OINT 396 GM JAR TP SCH ×2 (08:36→21:08)
[2016-04-14] MEDS: ASCORBIC ACID 500 MG TABLET PO SCH (08:36)
[2016-04-14] MEDS: ZINC OXIDE 56.7 GM TUBE TP SCH ×4 (08:37→21:09)
[2016-04-14] MEDS: NEOMY SULF/BACITRAC ZN/POLY 15 GM TUBE TP SCH ×2 (08:37→21:08)
[2016-04-14] MEDS: HYDROGEN PEROXIDE 480 ML BOTTLE TP SCH ×2 (08:37→21:08)
[2016-04-14] MEDS: BUDESONIDE RESPULE INH 0.5 MG/2 ML AMPUL.NEB IH SCH ×2 (09:16→21:20)
[2016-04-14] MEDS: BISACODYL SUPP (10 MG) 10 MG/SUPP.RECT SUPP.RECT RC PRN (17:00)
[2016-04-14 19:58] VITALS: BP 137/70
[2016-04-14] MEDS: GUAIFENESIN/D-METHORPHAN HB 5 ML UDC PO PRN (21:09)
[2016-04-14] MEDS: MONTELUKAST SODIUM (10MG) 10 MG TABLET PO SCH (21:09)
[2016-04-14] MEDS: TEMAZEPAM 30 MG CAPSULE PO SCH (21:09)
[2016-04-14] MEDS: diphenhydrAMINE HCL ELIX 25 MG/10 ML UDC PO PRN (21:09)
[2016-04-14] MEDS: INSULIN DETEMIR 100 UNIT/ML CARTRIDGE SQ SCH (21:17)
[2016-04-15] MEDS: IPRATROPIUM NEB FS 0.5 MG/2.5 ML AMPUL.NEB IH SCH ×4 (00:51→20:06)
[2016-04-15] MEDS: ALBUTEROL FS 2.5 MG/3 ML VIAL.NEB NEB SCH ×4 (00:51→20:06)
[2016-04-15] MEDS: diphenhydrAMINE HCL ELIX 25 MG/10 ML UDC PO PRN ×3 (03:16→23:40)
[2016-04-15] MEDS: PANTOPRAZOLE 40 MG TABLET.DR PO SCH (06:12)
[2016-04-15] MEDS: INSULIN LISPRO/ASPART 100 UNIT/ML CARTRIDGE SQ PRN ×4 (06:37→21:19)
[2016-04-15] MEDS: BLOOD SUGAR DIAGNOSTIC 1 EACH STRIP VI SCH ×4 (06:37→21:18)
[2016-04-15 07:45] VITALS: BP 142/94
[2016-04-15] MEDS: BUDESONIDE RESPULE INH 0.5 MG/2 ML AMPUL.NEB IH SCH ×2 (07:52→20:27)
[2016-04-15] MEDS: POLYVINYL ALCOHOL 15 ML BOTTLE EACHEYE SCH ×4 (08:35→21:18)
[2016-04-15] MEDS: GABAPENTIN 300 MG CAPSULE PO SCH ×3 (08:35→17:46)
[2016-04-15] MEDS: SITAGLIPTIN PHOSPHATE 25 MG TABLET PO SCH (08:35)
[2016-04-15] MEDS: DOCUSATE SODIUM 100 MG CAPSULE PO SCH (08:35)
[2016-04-15] MEDS: VIT B CMPLX 3/FA/VIT C/BIOTIN 1 TAB TABLET PO SCH (08:35)
[2016-04-15] MEDS: PROSOURCE / PROSTAT (PYXIS) 30 ML UDC PO SCH ×3 (08:35→17:46)
[2016-04-15] MEDS: ASCORBIC ACID 500 MG TABLET PO SCH (08:35)
[2016-04-15] MEDS: MINERAL OIL/PETROL OINT 396 GM JAR TP SCH ×2 (09:00→21:18)
[2016-04-15] MEDS: NEOMY SULF/BACITRAC ZN/POLY 15 GM TUBE TP SCH ×2 (09:00→21:18)
[2016-04-15] MEDS: ZINC OXIDE 56.7 GM TUBE TP SCH ×4 (09:00→21:18)
[2016-04-15] MEDS: HYDROGEN PEROXIDE 480 ML BOTTLE TP SCH ×2 (09:00→21:18)
[2016-04-15] MEDS: GUAIFENESIN/D-METHORPHAN HB 5 ML UDC PO PRN (18:40)
[2016-04-15 20:24] VITALS: BP 134/88
[2016-04-15] MEDS: MONTELUKAST SODIUM (10MG) 10 MG TABLET PO SCH (21:18)
[2016-04-15] MEDS: TEMAZEPAM 30 MG CAPSULE PO SCH (21:18)
[2016-04-15] MEDS: INSULIN DETEMIR 100 UNIT/ML CARTRIDGE SQ SCH (21:18)
[2016-04-16] MEDS: IPRATROPIUM NEB FS 0.5 MG/2.5 ML AMPUL.NEB IH SCH ×4 (02:02→19:30)
[2016-04-16] MEDS: ALBUTEROL FS 2.5 MG/3 ML VIAL.NEB NEB SCH ×4 (02:02→19:30)
[2016-04-16] MEDS: PANTOPRAZOLE 40 MG TABLET.DR PO SCH (06:54)
[2016-04-16] MEDS: INSULIN LISPRO/ASPART 100 UNIT/ML CARTRIDGE SQ PRN ×2 (06:54→17:34)
[2016-04-16] MEDS: BLOOD SUGAR DIAGNOSTIC 1 EACH STRIP VI SCH ×4 (06:54→21:37)
[2016-04-16] MEDS: GUAIFENESIN/D-METHORPHAN HB 5 ML UDC PO PRN (07:15)
[2016-04-16] MEDS: diphenhydrAMINE HCL ELIX 25 MG/10 ML UDC PO PRN (07:15)
[2016-04-16] MEDS: BUDESONIDE RESPULE INH 0.5 MG/2 ML AMPUL.NEB IH SCH ×2 (07:33→21:06)
[2016-04-16 08:06] VITALS: BP 138/84
[2016-04-16] MEDS: POLYVINYL ALCOHOL 15 ML BOTTLE EACHEYE SCH ×4 (08:09→21:36)
[2016-04-16] MEDS: DOCUSATE SODIUM 100 MG CAPSULE PO SCH (08:09)
[2016-04-16] MEDS: SITAGLIPTIN PHOSPHATE 25 MG TABLET PO SCH (08:09)
[2016-04-16] MEDS: VIT B CMPLX 3/FA/VIT C/BIOTIN 1 TAB TABLET PO SCH (08:10)
[2016-04-16] MEDS: ASCORBIC ACID 500 MG TABLET PO SCH (08:10)
[2016-04-16] MEDS: PROSOURCE / PROSTAT (PYXIS) 30 ML UDC PO SCH ×3 (08:10→17:32)
[2016-04-16] MEDS: GABAPENTIN 300 MG CAPSULE PO SCH ×3 (08:10→17:32)
[2016-04-16] MEDS: MINERAL OIL/PETROL OINT 396 GM JAR TP SCH ×2 (09:00→21:36)
[2016-04-16] MEDS: HYDROGEN PEROXIDE 480 ML BOTTLE TP SCH ×2 (15:00→21:36)
[2016-04-16] MEDS: ZINC OXIDE 56.7 GM TUBE TP SCH ×4 (15:00→21:36)
[2016-04-16] MEDS: NEOMY SULF/BACITRAC ZN/POLY 15 GM TUBE TP SCH ×2 (15:00→21:36)
[2016-04-16 19:47] VITALS: BP 124/75
[2016-04-16] MEDS: MONTELUKAST SODIUM (10MG) 10 MG TABLET PO SCH (21:36)
[2016-04-16] MEDS: INSULIN DETEMIR 100 UNIT/ML CARTRIDGE SQ SCH (21:36)
[2016-04-16] MEDS: TEMAZEPAM 30 MG CAPSULE PO SCH (21:36)
[2016-04-17] MEDS: ALBUTEROL FS 2.5 MG/3 ML VIAL.NEB NEB SCH ×4 (00:57→19:30)
[2016-04-17] MEDS: IPRATROPIUM NEB FS 0.5 MG/2.5 ML AMPUL.NEB IH SCH ×4 (00:57→19:30)
[2016-04-17] MEDS: PANTOPRAZOLE 40 MG TABLET.DR PO SCH (05:45)
[2016-04-17] MEDS: BLOOD SUGAR DIAGNOSTIC 1 EACH STRIP VI SCH ×4 (07:30→21:12)
[2016-04-17 07:50] VITALS: BP 123/69
[2016-04-17] MEDS: diphenhydrAMINE HCL ELIX 25 MG/10 ML UDC PO PRN ×2 (08:00→16:00)
[2016-04-17] MEDS: GUAIFENESIN/D-METHORPHAN HB 5 ML UDC PO PRN ×2 (08:00→16:00)
[2016-04-17] MEDS: BUDESONIDE RESPULE INH 0.5 MG/2 ML AMPUL.NEB IH SCH ×2 (08:40→21:36)
[2016-04-17] MEDS: HYDROGEN PEROXIDE 480 ML BOTTLE TP SCH ×2 (09:30→20:41)
[2016-04-17] MEDS: PROSOURCE / PROSTAT (PYXIS) 30 ML UDC PO SCH ×3 (09:30→16:53)
[2016-04-17] MEDS: ZINC OXIDE 56.7 GM TUBE TP SCH ×4 (09:30→20:42)
[2016-04-17] MEDS: SITAGLIPTIN PHOSPHATE 25 MG TABLET PO SCH (09:30)
[2016-04-17] MEDS: POLYVINYL ALCOHOL 15 ML BOTTLE EACHEYE SCH ×4 (09:30→20:41)
[2016-04-17] MEDS: DOCUSATE SODIUM 100 MG CAPSULE PO SCH (09:30)
[2016-04-17] MEDS: ASCORBIC ACID 500 MG TABLET PO SCH (09:30)
[2016-04-17] MEDS: GABAPENTIN 300 MG CAPSULE PO SCH ×3 (09:30→16:53)
[2016-04-17] MEDS: VIT B CMPLX 3/FA/VIT C/BIOTIN 1 TAB TABLET PO SCH (09:30)
[2016-04-17] MEDS: MINERAL OIL/PETROL OINT 396 GM JAR TP SCH ×2 (09:30→20:41)
[2016-04-17] MEDS: NEOMY SULF/BACITRAC ZN/POLY 15 GM TUBE TP SCH ×2 (09:30→20:42)
[2016-04-17] MEDS: INSULIN LISPRO/ASPART 100 UNIT/ML CARTRIDGE SQ PRN ×2 (12:16→21:13)
[2016-04-17 19:57] VITALS: BP 143/86
[2016-04-17] MEDS: TRAMADOL HCL 50 MG TABLET PO PRN (20:44)
[2016-04-17] MEDS: MONTELUKAST SODIUM (10MG) 10 MG TABLET PO SCH (21:11)
[2016-04-17] MEDS: TEMAZEPAM 30 MG CAPSULE PO SCH (21:11)
[2016-04-17] MEDS: INSULIN DETEMIR 100 UNIT/ML CARTRIDGE SQ SCH (21:12)
[2016-04-18] MEDS: IPRATROPIUM NEB FS 0.5 MG/2.5 ML AMPUL.NEB IH SCH ×4 (02:03→20:07)
[2016-04-18] MEDS: ALBUTEROL FS 2.5 MG/3 ML VIAL.NEB NEB SCH ×4 (02:03→20:07)
[2016-04-18] MEDS: PANTOPRAZOLE 40 MG TABLET.DR PO SCH (05:22)
[2016-04-18] MEDS: BLOOD SUGAR DIAGNOSTIC 1 EACH STRIP VI SCH ×4 (06:30→21:21)
[2016-04-18] MEDS: INSULIN LISPRO/ASPART 100 UNIT/ML CARTRIDGE SQ PRN ×3 (06:31→21:22)
[2016-04-18 07:47] VITALS: BP 132/86
[2016-04-18] MEDS: POLYVINYL ALCOHOL 15 ML BOTTLE EACHEYE SCH ×4 (08:30→21:20)
[2016-04-18] MEDS: PROSOURCE / PROSTAT (PYXIS) 30 ML UDC PO SCH ×3 (08:30→17:32)
[2016-04-18] MEDS: MINERAL OIL/PETROL OINT 396 GM JAR TP SCH ×2 (08:30→21:20)
[2016-04-18] MEDS: GABAPENTIN 300 MG CAPSULE PO SCH ×3 (08:30→17:32)
[2016-04-18] MEDS: SITAGLIPTIN PHOSPHATE 25 MG TABLET PO SCH (08:30)
[2016-04-18] MEDS: ASCORBIC ACID 500 MG TABLET PO SCH (08:30)
[2016-04-18] MEDS: HYDROGEN PEROXIDE 480 ML BOTTLE TP SCH ×2 (08:30→21:20)
[2016-04-18] MEDS: VIT B CMPLX 3/FA/VIT C/BIOTIN 1 TAB TABLET PO SCH (08:30)
[2016-04-18] MEDS: DOCUSATE SODIUM 100 MG CAPSULE PO SCH (08:30)
[2016-04-18] MEDS: NEOMY SULF/BACITRAC ZN/POLY 15 GM TUBE TP SCH ×2 (08:31→21:20)
[2016-04-18] MEDS: ZINC OXIDE 56.7 GM TUBE TP SCH ×4 (08:31→21:20)
[2016-04-18] MEDS: BUDESONIDE RESPULE INH 0.5 MG/2 ML AMPUL.NEB IH SCH ×2 (08:32→21:00)
[2016-04-18] MEDS: GUAIFENESIN/D-METHORPHAN HB 5 ML UDC PO PRN ×2 (10:02→18:01)
[2016-04-18] MEDS: diphenhydrAMINE HCL ELIX 25 MG/10 ML UDC PO PRN ×2 (10:02→18:01)
--- NOTE | 2016-04-18 13:45 | NUR ---
Resident returned back from dialysis treatment, condition stable in no acute signs and symptoms of distress and discomfort. Referred dietary recommendations from [facility] to Radha Petty Vit D3 53046 iu weekly and Prostat TID. Resident already on Prostat and per Radha to refer Vit D3 recommendation with the welt beater. Will notify MD in AM.
[2016-04-18 20:06] VITALS: BP 134/88
[2016-04-18] MEDS: TEMAZEPAM 30 MG CAPSULE PO SCH (21:20)
[2016-04-18] MEDS: MONTELUKAST SODIUM (10MG) 10 MG TABLET PO SCH (21:20)
[2016-04-18] MEDS: INSULIN DETEMIR 100 UNIT/ML CARTRIDGE SQ SCH (21:21)
[2016-04-18] MEDS: NAPROXEN 500 MG TABLET PO PRN (21:21)
[2016-04-19] MEDS: IPRATROPIUM NEB FS 0.5 MG/2.5 ML AMPUL.NEB IH SCH ×4 (01:02→20:34)
[2016-04-19] MEDS: ALBUTEROL FS 2.5 MG/3 ML VIAL.NEB NEB SCH ×4 (01:02→20:34)
[2016-04-19] MEDS: PANTOPRAZOLE 40 MG TABLET.DR PO SCH (05:26)
[2016-04-19] MEDS: BLOOD SUGAR DIAGNOSTIC 1 EACH STRIP VI SCH ×4 (06:33→21:16)
[2016-04-19] MEDS: INSULIN LISPRO/ASPART 100 UNIT/ML CARTRIDGE SQ PRN ×3 (06:34→21:17)
[2016-04-19 07:46] VITALS: BP 131/78
[2016-04-19] MEDS: BUDESONIDE RESPULE INH 0.5 MG/2 ML AMPUL.NEB IH SCH ×2 (08:14→20:35)
[2016-04-19] MEDS: SITAGLIPTIN PHOSPHATE 25 MG TABLET PO SCH (08:25)
[2016-04-19] MEDS: POLYVINYL ALCOHOL 15 ML BOTTLE EACHEYE SCH ×4 (08:25→20:24)
[2016-04-19] MEDS: VIT B CMPLX 3/FA/VIT C/BIOTIN 1 TAB TABLET PO SCH (08:25)
[2016-04-19] MEDS: PROSOURCE / PROSTAT (PYXIS) 30 ML UDC PO SCH ×3 (08:25→17:14)
[2016-04-19] MEDS: DOCUSATE SODIUM 100 MG CAPSULE PO SCH (08:25)
[2016-04-19] MEDS: GABAPENTIN 300 MG CAPSULE PO SCH ×3 (08:25→17:14)
[2016-04-19] MEDS: HYDROGEN PEROXIDE 480 ML BOTTLE TP SCH ×2 (08:26→20:24)
[2016-04-19] MEDS: MINERAL OIL/PETROL OINT 396 GM JAR TP SCH ×2 (08:26→20:24)
[2016-04-19] MEDS: ASCORBIC ACID 500 MG TABLET PO SCH (08:26)
[2016-04-19] MEDS: NEOMY SULF/BACITRAC ZN/POLY 15 GM TUBE TP SCH ×2 (08:26→20:24)
[2016-04-19] MEDS: ZINC OXIDE 56.7 GM TUBE TP SCH ×4 (08:26→20:25)
--- NOTE | 2016-04-19 13:51 | NUR ---
IDT meeting held, reviewed current, new and discontinued orders, drug reduction recommended for Restoril and will evaluate effectiveness. MD would like a most recent H&H level secondary to discontinuation of Heparin, will notify dialysis center if most recent H&H has been drawn and if not, will request level in dialysis in AM.
[2016-04-19] MEDS: BISACODYL SUPP (10 MG) 10 MG/SUPP.RECT SUPP.RECT RC PRN (16:13)
[2016-04-19] MEDS: NAPROXEN 500 MG TABLET PO PRN (20:24)
[2016-04-19 21:11] VITALS: BP 144/90
[2016-04-19] MEDS: MONTELUKAST SODIUM (10MG) 10 MG TABLET PO SCH (21:15)
[2016-04-19] MEDS: TEMAZEPAM 30 MG CAPSULE PO SCH (21:15)
[2016-04-19] MEDS: INSULIN DETEMIR 100 UNIT/ML CARTRIDGE SQ SCH (21:16)
[2016-04-19] MEDS: diphenhydrAMINE HCL ELIX 25 MG/10 ML UDC PO PRN (21:16)
[2016-04-20] MEDS: IPRATROPIUM NEB FS 0.5 MG/2.5 ML AMPUL.NEB IH SCH ×4 (01:45→20:15)
[2016-04-20] MEDS: ALBUTEROL FS 2.5 MG/3 ML VIAL.NEB NEB SCH ×4 (01:45→20:15)
[2016-04-20] MEDS: PANTOPRAZOLE 40 MG TABLET.DR PO SCH (05:21)
[2016-04-20] MEDS: BLOOD SUGAR DIAGNOSTIC 1 EACH STRIP VI SCH ×4 (06:33→21:17)
[2016-04-20] MEDS: INSULIN LISPRO/ASPART 100 UNIT/ML CARTRIDGE SQ PRN ×3 (06:34→21:17)
[2016-04-20 08:01] VITALS: BP 122/79
[2016-04-20] MEDS: VIT B CMPLX 3/FA/VIT C/BIOTIN 1 TAB TABLET PO SCH (08:22)
[2016-04-20] MEDS: NEOMY SULF/BACITRAC ZN/POLY 15 GM TUBE TP SCH ×2 (08:22→20:23)
[2016-04-20] MEDS: HYDROGEN PEROXIDE 480 ML BOTTLE TP SCH ×2 (08:22→20:22)
[2016-04-20] MEDS: DOCUSATE SODIUM 100 MG CAPSULE PO SCH (08:22)
[2016-04-20] MEDS: POLYVINYL ALCOHOL 15 ML BOTTLE EACHEYE SCH ×4 (08:22→20:22)
[2016-04-20] MEDS: ASCORBIC ACID 500 MG TABLET PO SCH (08:22)
[2016-04-20] MEDS: SITAGLIPTIN PHOSPHATE 25 MG TABLET PO SCH (08:22)
[2016-04-20] MEDS: MINERAL OIL/PETROL OINT 396 GM JAR TP SCH ×2 (08:22→20:22)
[2016-04-20] MEDS: GABAPENTIN 300 MG CAPSULE PO SCH ×3 (08:22→17:56)
[2016-04-20] MEDS: PROSOURCE / PROSTAT (PYXIS) 30 ML UDC PO SCH ×3 (08:22→17:56)
[2016-04-20] MEDS: ZINC OXIDE 56.7 GM TUBE TP SCH ×4 (08:23→20:23)
[2016-04-20] MEDS: BUDESONIDE RESPULE INH 0.5 MG/2 ML AMPUL.NEB IH SCH ×2 (09:02→20:26)
--- NOTE | 2016-04-20 13:36 | NUR ---
UNABLE TO GIVE TX, PT OUT FOR DIALYSIS
--- NOTE | 2016-04-20 13:36 | NUR ---
PT OUT FOR DIALYSIS
[2016-04-20] MEDS: GUAIFENESIN/D-METHORPHAN HB 5 ML UDC PO PRN (14:28)
[2016-04-20 20:12] VITALS: BP 133/88
[2016-04-20] MEDS: diphenhydrAMINE HCL ELIX 25 MG/10 ML UDC PO PRN (20:23)
[2016-04-20] MEDS: NAPROXEN 500 MG TABLET PO PRN (20:23)
[2016-04-20] MEDS: MONTELUKAST SODIUM (10MG) 10 MG TABLET PO SCH (21:16)
[2016-04-20] MEDS: TEMAZEPAM 30 MG CAPSULE PO SCH (21:16)
[2016-04-20] MEDS: INSULIN DETEMIR 100 UNIT/ML CARTRIDGE SQ SCH (21:17)
[2016-04-21] MEDS: ALBUTEROL FS 2.5 MG/3 ML VIAL.NEB NEB SCH ×4 (02:37→19:47)
[2016-04-21] MEDS: IPRATROPIUM NEB FS 0.5 MG/2.5 ML AMPUL.NEB IH SCH ×4 (02:37→19:47)
[2016-04-21] MEDS: PANTOPRAZOLE 40 MG TABLET.DR PO SCH (05:24)
[2016-04-21] MEDS: BLOOD SUGAR DIAGNOSTIC 1 EACH STRIP VI SCH ×4 (06:46→21:15)
[2016-04-21] MEDS: INSULIN LISPRO/ASPART 100 UNIT/ML CARTRIDGE SQ PRN ×3 (06:47→17:28)
[2016-04-21 07:54] VITALS: BP 135/85
[2016-04-21] MEDS: BUDESONIDE RESPULE INH 0.5 MG/2 ML AMPUL.NEB IH SCH ×2 (09:02→19:47)
[2016-04-21] MEDS: POLYVINYL ALCOHOL 15 ML BOTTLE EACHEYE SCH ×4 (09:37→21:14)
[2016-04-21] MEDS: GABAPENTIN 300 MG CAPSULE PO SCH ×3 (09:38→17:27)
[2016-04-21] MEDS: VIT B CMPLX 3/FA/VIT C/BIOTIN 1 TAB TABLET PO SCH (09:38)
[2016-04-21] MEDS: SITAGLIPTIN PHOSPHATE 25 MG TABLET PO SCH (09:38)
[2016-04-21] MEDS: DOCUSATE SODIUM 100 MG CAPSULE PO SCH (09:38)
[2016-04-21] MEDS: PROSOURCE / PROSTAT (PYXIS) 30 ML UDC PO SCH ×3 (09:42→17:27)
[2016-04-21] MEDS: ASCORBIC ACID 500 MG TABLET PO SCH (09:42)
[2016-04-21] MEDS: diphenhydrAMINE HCL ELIX 25 MG/10 ML UDC PO PRN (09:43)
[2016-04-21] MEDS: NEOMY SULF/BACITRAC ZN/POLY 15 GM TUBE TP SCH ×2 (09:44→21:15)
[2016-04-21] MEDS: HYDROGEN PEROXIDE 480 ML BOTTLE TP SCH ×2 (09:44→21:15)
[2016-04-21] MEDS: MINERAL OIL/PETROL OINT 396 GM JAR TP SCH ×2 (09:44→21:15)
[2016-04-21] MEDS: ZINC OXIDE 56.7 GM TUBE TP SCH ×4 (09:45→21:15)
[2016-04-21 20:24] VITALS: BP 129/56
[2016-04-21] MEDS: MONTELUKAST SODIUM (10MG) 10 MG TABLET PO SCH (21:15)
[2016-04-21] MEDS: INSULIN DETEMIR 100 UNIT/ML CARTRIDGE SQ SCH (21:15)
[2016-04-21] MEDS: TEMAZEPAM 30 MG CAPSULE PO SCH (21:15)
[2016-04-22] MEDS: ALBUTEROL FS 2.5 MG/3 ML VIAL.NEB NEB SCH ×4 (02:02→20:28)
[2016-04-22] MEDS: IPRATROPIUM NEB FS 0.5 MG/2.5 ML AMPUL.NEB IH SCH ×4 (02:02→20:28)
[2016-04-22] MEDS: PANTOPRAZOLE 40 MG TABLET.DR PO SCH (05:55)
[2016-04-22 07:44] VITALS: BP 133/82
[2016-04-22] MEDS: SITAGLIPTIN PHOSPHATE 25 MG TABLET PO SCH (08:02)
[2016-04-22] MEDS: BLOOD SUGAR DIAGNOSTIC 1 EACH STRIP VI SCH ×4 (08:02→21:21)
[2016-04-22] MEDS: POLYVINYL ALCOHOL 15 ML BOTTLE EACHEYE SCH ×4 (08:02→21:19)
[2016-04-22] MEDS: VIT B CMPLX 3/FA/VIT C/BIOTIN 1 TAB TABLET PO SCH (08:02)
[2016-04-22] MEDS: DOCUSATE SODIUM 100 MG CAPSULE PO SCH (08:02)
[2016-04-22] MEDS: GABAPENTIN 300 MG CAPSULE PO SCH ×3 (08:02→17:15)
[2016-04-22] MEDS: ASCORBIC ACID 500 MG TABLET PO SCH (08:03)
[2016-04-22] MEDS: PROSOURCE / PROSTAT (PYXIS) 30 ML UDC PO SCH ×3 (08:03→17:00)
[2016-04-22] MEDS: HYDROGEN PEROXIDE 480 ML BOTTLE TP SCH ×2 (08:03→21:20)
[2016-04-22] MEDS: MINERAL OIL/PETROL OINT 396 GM JAR TP SCH ×2 (08:03→21:20)
[2016-04-22] MEDS: ZINC OXIDE 56.7 GM TUBE TP SCH ×4 (08:03→21:20)
--- NOTE | 2016-04-22 09:25 | NUR ---
Seen and examined by Dr. Helen Prieto, and made aware of [facility]'s dietary recommendations to give Vit D3 50,000 IU Q weekly due to low Vit D level 6.0. She agreed with the recommendations. All orders noted and carried out.
[2016-04-22] MEDS: BUDESONIDE RESPULE INH 0.5 MG/2 ML AMPUL.NEB IH SCH ×3 (09:57→20:28)
--- NOTE | 2016-04-22 10:27 | NUR ---
Seen and examined by Dr. Gardner, NNO given.
[2016-04-22] MEDS: INSULIN LISPRO/ASPART 100 UNIT/ML CARTRIDGE SQ PRN (12:00)
[2016-04-22] MEDS: BISACODYL SUPP (10 MG) 10 MG/SUPP.RECT SUPP.RECT RC PRN (14:23)
[2016-04-22 20:04] VITALS: BP 126/76
[2016-04-22] MEDS: MONTELUKAST SODIUM (10MG) 10 MG TABLET PO SCH (21:20)
[2016-04-22] MEDS: TEMAZEPAM 15 MG CAPSULE PO SCH (21:20)
[2016-04-22] MEDS: HEPARIN SODIUM, PORCINE 5000 UNITS/1 ML VIAL SQ SCH (21:20)
[2016-04-22] MEDS: INSULIN DETEMIR 100 UNIT/ML CARTRIDGE SQ SCH (21:21)
[2016-04-23] MEDS: IPRATROPIUM NEB FS 0.5 MG/2.5 ML AMPUL.NEB IH SCH ×4 (01:30→20:08)
[2016-04-23] MEDS: ALBUTEROL FS 2.5 MG/3 ML VIAL.NEB NEB SCH ×4 (01:30→20:08)
[2016-04-23] MEDS: PANTOPRAZOLE 40 MG TABLET.DR PO SCH (06:01)
[2016-04-23] MEDS: BLOOD SUGAR DIAGNOSTIC 1 EACH STRIP VI SCH ×4 (07:30→21:31)
[2016-04-23 08:07] VITALS: BP 141/88
[2016-04-23] MEDS: GABAPENTIN 300 MG CAPSULE PO SCH ×3 (08:34→17:10)
[2016-04-23] MEDS: POLYVINYL ALCOHOL 15 ML BOTTLE EACHEYE SCH ×4 (08:34→21:29)
[2016-04-23] MEDS: VIT B CMPLX 3/FA/VIT C/BIOTIN 1 TAB TABLET PO SCH (08:34)
[2016-04-23] MEDS: DOCUSATE SODIUM 100 MG CAPSULE PO SCH (08:34)
[2016-04-23] MEDS: ASCORBIC ACID 500 MG TABLET PO SCH (08:34)
[2016-04-23] MEDS: PROSOURCE / PROSTAT (PYXIS) 30 ML UDC PO SCH ×3 (08:34→17:11)
[2016-04-23] MEDS: SITAGLIPTIN PHOSPHATE 25 MG TABLET PO SCH (08:34)
[2016-04-23] MEDS: HEPARIN SODIUM, PORCINE 5000 UNITS/1 ML VIAL SQ SCH ×2 (08:35→21:30)
[2016-04-23] MEDS: HYDROGEN PEROXIDE 480 ML BOTTLE TP SCH ×2 (08:35→21:30)
[2016-04-23] MEDS: MINERAL OIL/PETROL OINT 396 GM JAR TP SCH ×2 (08:35→21:30)
[2016-04-23] MEDS: ZINC OXIDE 56.7 GM TUBE TP SCH ×4 (08:35→21:30)
[2016-04-23] MEDS: diphenhydrAMINE HCL ELIX 25 MG/10 ML UDC PO PRN ×2 (08:40→18:18)
[2016-04-23] MEDS: GUAIFENESIN/D-METHORPHAN HB 5 ML UDC PO PRN (08:40)
[2016-04-23] MEDS: ERGOCALCIFEROL (VITAMIN D 2) 50,000 UNIT CAPSULE PO SCH (09:00)
[2016-04-23] MEDS: BUDESONIDE RESPULE INH 0.5 MG/2 ML AMPUL.NEB IH SCH (09:00)
[2016-04-23] MEDS: TRAMADOL HCL 50 MG TABLET PO PRN (14:22)
[2016-04-23] MEDS: INSULIN LISPRO/ASPART 100 UNIT/ML CARTRIDGE SQ PRN (17:12)
[2016-04-23 19:50] VITALS: BP 138/77
[2016-04-23] MEDS: INSULIN DETEMIR 100 UNIT/ML CARTRIDGE SQ SCH (21:31)
[2016-04-23] MEDS: TEMAZEPAM 15 MG CAPSULE PO SCH (21:31)
[2016-04-23] MEDS: MONTELUKAST SODIUM (10MG) 10 MG TABLET PO SCH (21:31)
[2016-04-24] MEDS: IPRATROPIUM NEB FS 0.5 MG/2.5 ML AMPUL.NEB IH SCH ×4 (01:05→19:56)
[2016-04-24] MEDS: ALBUTEROL FS 2.5 MG/3 ML VIAL.NEB NEB SCH ×4 (01:05→19:56)
[2016-04-24] MEDS: PANTOPRAZOLE 40 MG TABLET.DR PO SCH (06:01)
[2016-04-24] MEDS: BLOOD SUGAR DIAGNOSTIC 1 EACH STRIP VI SCH ×4 (07:16→21:44)
[2016-04-24 07:56] VITALS: BP 145/94
[2016-04-24] MEDS: GABAPENTIN 300 MG CAPSULE PO SCH ×3 (08:28→17:21)
[2016-04-24] MEDS: HEPARIN SODIUM, PORCINE 5000 UNITS/1 ML VIAL SQ SCH ×2 (08:28→21:43)
[2016-04-24] MEDS: SITAGLIPTIN PHOSPHATE 25 MG TABLET PO SCH (08:28)
[2016-04-24] MEDS: POLYVINYL ALCOHOL 15 ML BOTTLE EACHEYE SCH ×4 (08:28→21:43)
[2016-04-24] MEDS: DOCUSATE SODIUM 100 MG CAPSULE PO SCH (08:28)
[2016-04-24] MEDS: VIT B CMPLX 3/FA/VIT C/BIOTIN 1 TAB TABLET PO SCH (08:28)
[2016-04-24] MEDS: PROSOURCE / PROSTAT (PYXIS) 30 ML UDC PO SCH ×3 (08:28→17:22)
[2016-04-24] MEDS: ASCORBIC ACID 500 MG TABLET PO SCH (08:28)
[2016-04-24] MEDS: MINERAL OIL/PETROL OINT 396 GM JAR TP SCH ×2 (08:29→21:43)
[2016-04-24] MEDS: ZINC OXIDE 56.7 GM TUBE TP SCH ×4 (08:29→21:43)
[2016-04-24] MEDS: HYDROGEN PEROXIDE 480 ML BOTTLE TP SCH ×2 (08:29→21:43)
[2016-04-24] MEDS: diphenhydrAMINE HCL ELIX 25 MG/10 ML UDC PO PRN ×2 (09:00→16:00)
[2016-04-24] MEDS: BUDESONIDE RESPULE INH 0.5 MG/2 ML AMPUL.NEB IH SCH ×2 (09:00→19:57)
[2016-04-24] MEDS: GUAIFENESIN/D-METHORPHAN HB 5 ML UDC PO PRN ×3 (09:00→23:37)
[2016-04-24] MEDS: BISACODYL SUPP (10 MG) 10 MG/SUPP.RECT SUPP.RECT RC PRN (11:59)
[2016-04-24] MEDS: INSULIN LISPRO/ASPART 100 UNIT/ML CARTRIDGE SQ PRN (12:01)
[2016-04-24 20:09] VITALS: BP 137/80
[2016-04-24] MEDS: TEMAZEPAM 15 MG CAPSULE PO SCH (21:43)
[2016-04-24] MEDS: MONTELUKAST SODIUM (10MG) 10 MG TABLET PO SCH (21:44)
[2016-04-24] MEDS: INSULIN DETEMIR 100 UNIT/ML CARTRIDGE SQ SCH (21:44)
[2016-04-25] MEDS: ALBUTEROL FS 2.5 MG/3 ML VIAL.NEB NEB SCH ×4 (00:55→19:42)
[2016-04-25] MEDS: IPRATROPIUM NEB FS 0.5 MG/2.5 ML AMPUL.NEB IH SCH ×4 (00:55→19:42)
[2016-04-25] MEDS: PANTOPRAZOLE 40 MG TABLET.DR PO SCH (06:08)
[2016-04-25] MEDS: BLOOD SUGAR DIAGNOSTIC 1 EACH STRIP VI SCH ×4 (06:59→21:38)
[2016-04-25 07:48] VITALS: BP 143/88
[2016-04-25] MEDS: BUDESONIDE RESPULE INH 0.5 MG/2 ML AMPUL.NEB IH SCH ×2 (09:30→19:42)
[2016-04-25] MEDS: VIT B CMPLX 3/FA/VIT C/BIOTIN 1 TAB TABLET PO SCH (09:31)
[2016-04-25] MEDS: POLYVINYL ALCOHOL 15 ML BOTTLE EACHEYE SCH ×4 (09:31→21:35)
[2016-04-25] MEDS: DOCUSATE SODIUM 100 MG CAPSULE PO SCH (09:31)
[2016-04-25] MEDS: SITAGLIPTIN PHOSPHATE 25 MG TABLET PO SCH (09:31)
[2016-04-25] MEDS: ASCORBIC ACID 500 MG TABLET PO SCH (09:32)
[2016-04-25] MEDS: PROSOURCE / PROSTAT (PYXIS) 30 ML UDC PO SCH ×3 (09:32→17:35)
[2016-04-25] MEDS: MINERAL OIL/PETROL OINT 396 GM JAR TP SCH ×2 (09:32→21:35)
[2016-04-25] MEDS: HYDROGEN PEROXIDE 480 ML BOTTLE TP SCH ×2 (09:32→21:36)
[2016-04-25] MEDS: HEPARIN SODIUM, PORCINE 5000 UNITS/1 ML VIAL SQ SCH ×2 (09:32→21:35)
[2016-04-25] MEDS: ZINC OXIDE 56.7 GM TUBE TP SCH ×4 (09:32→21:36)
[2016-04-25] MEDS: GABAPENTIN 300 MG CAPSULE PO SCH ×3 (09:32→17:35)
[2016-04-25] MEDS: diphenhydrAMINE HCL ELIX 25 MG/10 ML UDC PO PRN ×2 (15:13→21:37)
--- NOTE | 2016-04-25 16:17 | NUR ---
Seen and examined by Radha Petty, YARDER OPERATOR, NNO given.
[2016-04-25] MEDS: INSULIN LISPRO/ASPART 100 UNIT/ML CARTRIDGE SQ PRN (17:37)
[2016-04-25] MEDS: GUAIFENESIN/D-METHORPHAN HB 5 ML UDC PO PRN (18:57)
[2016-04-25 19:54] VITALS: BP 144/84
[2016-04-25] MEDS: MONTELUKAST SODIUM (10MG) 10 MG TABLET PO SCH (21:36)
[2016-04-25] MEDS: TEMAZEPAM 15 MG CAPSULE PO SCH (21:36)
[2016-04-25] MEDS: INSULIN DETEMIR 100 UNIT/ML CARTRIDGE SQ SCH (21:38)
[2016-04-26] MEDS: ALBUTEROL FS 2.5 MG/3 ML VIAL.NEB NEB SCH ×4 (01:01→20:14)
[2016-04-26] MEDS: IPRATROPIUM NEB FS 0.5 MG/2.5 ML AMPUL.NEB IH SCH ×4 (01:01→20:14)
[2016-04-26] MEDS: PANTOPRAZOLE 40 MG TABLET.DR PO SCH (05:36)
[2016-04-26] MEDS: INSULIN LISPRO/ASPART 100 UNIT/ML CARTRIDGE SQ PRN ×3 (06:38→21:13)
[2016-04-26] MEDS: BLOOD SUGAR DIAGNOSTIC 1 EACH STRIP VI SCH ×4 (06:48→21:12)
[2016-04-26 08:10] VITALS: BP 138/80
[2016-04-26] MEDS: POLYVINYL ALCOHOL 15 ML BOTTLE EACHEYE SCH ×4 (08:53→20:52)
[2016-04-26] MEDS: DOCUSATE SODIUM 100 MG CAPSULE PO SCH (08:53)
[2016-04-26] MEDS: GABAPENTIN 300 MG CAPSULE PO SCH ×3 (08:53→17:00)
[2016-04-26] MEDS: HEPARIN SODIUM, PORCINE 5000 UNITS/1 ML VIAL SQ SCH ×2 (08:53→20:53)
[2016-04-26] MEDS: ASCORBIC ACID 500 MG TABLET PO SCH (08:53)
[2016-04-26] MEDS: VIT B CMPLX 3/FA/VIT C/BIOTIN 1 TAB TABLET PO SCH (08:53)
[2016-04-26] MEDS: PROSOURCE / PROSTAT (PYXIS) 30 ML UDC PO SCH ×3 (08:53→17:00)
[2016-04-26] MEDS: SITAGLIPTIN PHOSPHATE 25 MG TABLET PO SCH (08:53)
[2016-04-26] MEDS: MINERAL OIL/PETROL OINT 396 GM JAR TP SCH ×2 (08:54→20:53)
[2016-04-26] MEDS: HYDROGEN PEROXIDE 480 ML BOTTLE TP SCH ×2 (08:54→20:53)
[2016-04-26] MEDS: ZINC OXIDE 56.7 GM TUBE TP SCH ×4 (08:54→20:53)
[2016-04-26] MEDS: diphenhydrAMINE HCL ELIX 25 MG/10 ML UDC PO PRN ×3 (08:57→22:03)
[2016-04-26] MEDS: GUAIFENESIN/D-METHORPHAN HB 5 ML UDC PO PRN (08:57)
[2016-04-26] MEDS: BUDESONIDE RESPULE INH 0.5 MG/2 ML AMPUL.NEB IH SCH ×2 (09:01→20:14)
[2016-04-26] MEDS: TRAMADOL HCL 50 MG TABLET PO PRN (15:28)
[2016-04-26] MEDS: INSULIN DETEMIR 100 UNIT/ML CARTRIDGE SQ SCH (21:12)
[2016-04-26] MEDS: TEMAZEPAM 15 MG CAPSULE PO SCH (21:12)
[2016-04-26] MEDS: MONTELUKAST SODIUM (10MG) 10 MG TABLET PO SCH (21:12)
[2016-04-26] MEDS: NAPROXEN 500 MG TABLET PO PRN (21:13)
[2016-04-26 21:26] VITALS: BP 147/87
[2016-04-26] MEDS ORDERED: diphenhydrAMINE HCL 25 MG CAPSULE ONE (21:40)
[2016-04-27] MEDS: IPRATROPIUM NEB FS 0.5 MG/2.5 ML AMPUL.NEB IH SCH ×4 (02:30→19:55)
[2016-04-27] MEDS: ALBUTEROL FS 2.5 MG/3 ML VIAL.NEB NEB SCH ×4 (02:30→19:55)
[2016-04-27] MEDS: PANTOPRAZOLE 40 MG TABLET.DR PO SCH (05:52)
[2016-04-27] MEDS: BLOOD SUGAR DIAGNOSTIC 1 EACH STRIP VI SCH ×4 (06:47→21:08)
[2016-04-27] MEDS: INSULIN LISPRO/ASPART 100 UNIT/ML CARTRIDGE SQ PRN ×3 (06:48→21:09)
[2016-04-27 07:36] VITALS: BP 130/84
[2016-04-27] MEDS: GABAPENTIN 300 MG CAPSULE PO SCH ×3 (08:15→16:46)
[2016-04-27] MEDS: POLYVINYL ALCOHOL 15 ML BOTTLE EACHEYE SCH ×4 (08:15→20:09)
[2016-04-27] MEDS: PROSOURCE / PROSTAT (PYXIS) 30 ML UDC PO SCH ×3 (08:15→16:46)
[2016-04-27] MEDS: VIT B CMPLX 3/FA/VIT C/BIOTIN 1 TAB TABLET PO SCH (08:15)
[2016-04-27] MEDS: DOCUSATE SODIUM 100 MG CAPSULE PO SCH (08:15)
[2016-04-27] MEDS: ASCORBIC ACID 500 MG TABLET PO SCH (08:15)
[2016-04-27] MEDS: SITAGLIPTIN PHOSPHATE 25 MG TABLET PO SCH (08:15)
[2016-04-27] MEDS: ZINC OXIDE 56.7 GM TUBE TP SCH ×4 (08:16→20:10)
[2016-04-27] MEDS: HYDROGEN PEROXIDE 480 ML BOTTLE TP SCH ×2 (08:16→20:10)
[2016-04-27] MEDS: MINERAL OIL/PETROL OINT 396 GM JAR TP SCH ×2 (08:16→20:10)
[2016-04-27] MEDS: HEPARIN SODIUM, PORCINE 5000 UNITS/1 ML VIAL SQ SCH ×2 (08:16→20:09)
[2016-04-27] MEDS: BUDESONIDE RESPULE INH 0.5 MG/2 ML AMPUL.NEB IH SCH ×2 (08:28→20:07)
[2016-04-27] MEDS: diphenhydrAMINE HCL ELIX 25 MG/10 ML UDC PO PRN (15:56)
[2016-04-27] MEDS: NAPROXEN 500 MG TABLET PO PRN (20:10)
[2016-04-27 20:11] VITALS: BP 148/89
[2016-04-27] MEDS: TEMAZEPAM 15 MG CAPSULE PO SCH (21:07)
[2016-04-27] MEDS: MONTELUKAST SODIUM (10MG) 10 MG TABLET PO SCH (21:07)
[2016-04-27] MEDS: INSULIN DETEMIR 100 UNIT/ML CARTRIDGE SQ SCH (21:08)
[2016-04-28] MEDS: diphenhydrAMINE HCL ELIX 25 MG/10 ML UDC PO PRN ×3 (00:37→13:00)
[2016-04-28] MEDS: ALBUTEROL FS 2.5 MG/3 ML VIAL.NEB NEB SCH ×4 (02:20→19:59)
[2016-04-28] MEDS: IPRATROPIUM NEB FS 0.5 MG/2.5 ML AMPUL.NEB IH SCH ×4 (02:20→19:59)
[2016-04-28] MEDS: PANTOPRAZOLE 40 MG TABLET.DR PO SCH (05:13)
[2016-04-28] MEDS: BLOOD SUGAR DIAGNOSTIC 1 EACH STRIP VI SCH ×4 (06:37→21:04)
[2016-04-28] MEDS: INSULIN LISPRO/ASPART 100 UNIT/ML CARTRIDGE SQ PRN ×3 (06:38→21:05)
[2016-04-28] MEDS: BUDESONIDE RESPULE INH 0.5 MG/2 ML AMPUL.NEB IH SCH ×2 (08:20→20:00)
[2016-04-28 08:36] VITALS: BP 144/77
[2016-04-28] MEDS: PROSOURCE / PROSTAT (PYXIS) 30 ML UDC PO SCH ×3 (09:00→17:13)
[2016-04-28] MEDS: HYDROGEN PEROXIDE 480 ML BOTTLE TP SCH ×2 (09:00→21:03)
[2016-04-28] MEDS: MINERAL OIL/PETROL OINT 396 GM JAR TP SCH ×2 (09:00→21:03)
[2016-04-28] MEDS: DOCUSATE SODIUM 100 MG CAPSULE PO SCH (09:00)
[2016-04-28] MEDS: ASCORBIC ACID 500 MG TABLET PO SCH (09:00)
[2016-04-28] MEDS: HEPARIN SODIUM, PORCINE 5000 UNITS/1 ML VIAL SQ SCH ×2 (09:00→21:03)
[2016-04-28] MEDS: SITAGLIPTIN PHOSPHATE 25 MG TABLET PO SCH (09:00)
[2016-04-28] MEDS: VIT B CMPLX 3/FA/VIT C/BIOTIN 1 TAB TABLET PO SCH (09:00)
[2016-04-28] MEDS: ZINC OXIDE 56.7 GM TUBE TP SCH ×4 (09:00→21:03)
[2016-04-28] MEDS: GABAPENTIN 300 MG CAPSULE PO SCH ×3 (09:00→17:13)
[2016-04-28] MEDS: GUAIFENESIN/D-METHORPHAN HB 5 ML UDC PO PRN (09:00)
[2016-04-28] MEDS: POLYVINYL ALCOHOL 15 ML BOTTLE EACHEYE SCH ×4 (09:00→21:03)
[2016-04-28 19:49] VITALS: BP 138/85
[2016-04-28] MEDS: TEMAZEPAM 15 MG CAPSULE PO SCH (21:04)
[2016-04-28] MEDS: INSULIN DETEMIR 100 UNIT/ML CARTRIDGE SQ SCH (21:04)
[2016-04-28] MEDS: MONTELUKAST SODIUM (10MG) 10 MG TABLET PO SCH (21:04)
[2016-04-29] MEDS: diphenhydrAMINE HCL ELIX 25 MG/10 ML UDC PO PRN ×3 (00:48→12:55)
[2016-04-29] MEDS: IPRATROPIUM NEB FS 0.5 MG/2.5 ML AMPUL.NEB IH SCH ×4 (01:23→19:56)
[2016-04-29] MEDS: ALBUTEROL FS 2.5 MG/3 ML VIAL.NEB NEB SCH ×4 (01:23→19:56)
[2016-04-29] MEDS: PANTOPRAZOLE 40 MG TABLET.DR PO SCH (06:06)
[2016-04-29] MEDS: GUAIFENESIN/D-METHORPHAN HB 5 ML UDC PO PRN ×3 (06:08→21:23)
[2016-04-29] MEDS: BLOOD SUGAR DIAGNOSTIC 1 EACH STRIP VI SCH ×4 (07:31→21:10)
[2016-04-29] MEDS: INSULIN LISPRO/ASPART 100 UNIT/ML CARTRIDGE SQ PRN ×4 (07:31→21:10)
[2016-04-29 07:45] VITALS: BP 147/90
[2016-04-29] MEDS: BUDESONIDE RESPULE INH 0.5 MG/2 ML AMPUL.NEB IH SCH ×2 (08:01→21:00)
[2016-04-29] MEDS: GABAPENTIN 300 MG CAPSULE PO SCH ×3 (09:08→17:00)
[2016-04-29] MEDS: ASCORBIC ACID 500 MG TABLET PO SCH (09:08)
[2016-04-29] MEDS: VIT B CMPLX 3/FA/VIT C/BIOTIN 1 TAB TABLET PO SCH (09:08)
[2016-04-29] MEDS: HEPARIN SODIUM, PORCINE 5000 UNITS/1 ML VIAL SQ SCH ×2 (09:08→21:09)
[2016-04-29] MEDS: MINERAL OIL/PETROL OINT 396 GM JAR TP SCH ×2 (09:08→21:09)
[2016-04-29] MEDS: SITAGLIPTIN PHOSPHATE 25 MG TABLET PO SCH (09:08)
[2016-04-29] MEDS: PROSOURCE / PROSTAT (PYXIS) 30 ML UDC PO SCH ×3 (09:08→17:00)
[2016-04-29] MEDS: DOCUSATE SODIUM 100 MG CAPSULE PO SCH (09:08)
[2016-04-29] MEDS: POLYVINYL ALCOHOL 15 ML BOTTLE EACHEYE SCH ×4 (09:08→21:09)
[2016-04-29] MEDS: BISACODYL SUPP (10 MG) 10 MG/SUPP.RECT SUPP.RECT RC PRN (12:55)
[2016-04-29] MEDS: ZINC OXIDE 56.7 GM TUBE TP SCH ×4 (16:00→21:09)
[2016-04-29] MEDS: HYDROGEN PEROXIDE 480 ML BOTTLE TP SCH ×2 (16:00→21:09)
[2016-04-29 19:52] VITALS: BP 138/77
[2016-04-29] MEDS: TEMAZEPAM 15 MG CAPSULE PO SCH (21:09)
[2016-04-29] MEDS: MONTELUKAST SODIUM (10MG) 10 MG TABLET PO SCH (21:09)
[2016-04-29] MEDS: INSULIN DETEMIR 100 UNIT/ML CARTRIDGE SQ SCH (21:10)
[2016-04-30] MEDS: IPRATROPIUM NEB FS 0.5 MG/2.5 ML AMPUL.NEB IH SCH ×4 (01:38→19:30)
[2016-04-30] MEDS: ALBUTEROL FS 2.5 MG/3 ML VIAL.NEB NEB SCH ×4 (01:38→19:30)
[2016-04-30] MEDS: PANTOPRAZOLE 40 MG TABLET.DR PO SCH (06:16)
[2016-04-30] MEDS: BLOOD SUGAR DIAGNOSTIC 1 EACH STRIP VI SCH ×4 (06:38→21:18)
[2016-04-30] MEDS: GUAIFENESIN/D-METHORPHAN HB 5 ML UDC PO PRN ×2 (06:39→17:33)
[2016-04-30] MEDS: INSULIN LISPRO/ASPART 100 UNIT/ML CARTRIDGE SQ PRN ×2 (06:39→17:29)
[2016-04-30] MEDS: diphenhydrAMINE HCL ELIX 25 MG/10 ML UDC PO PRN ×2 (06:39→17:33)
--- NOTE | 2016-04-30 06:58 | NUR ---
RN NOTES Received new order from Dr. Navarrete to continue Heparin 5,000 units SQ q12hrs for DVT prophylaxis, noted and carried out.
[2016-04-30 07:45] VITALS: BP 164/104
[2016-04-30] MEDS: BUDESONIDE RESPULE INH 0.5 MG/2 ML AMPUL.NEB IH SCH ×2 (08:30→20:31)
[2016-04-30] MEDS: DOCUSATE SODIUM 100 MG CAPSULE PO SCH (08:58)
[2016-04-30] MEDS: GABAPENTIN 300 MG CAPSULE PO SCH ×3 (08:58→17:28)
[2016-04-30] MEDS: POLYVINYL ALCOHOL 15 ML BOTTLE EACHEYE SCH ×4 (08:58→21:17)
[2016-04-30] MEDS: SITAGLIPTIN PHOSPHATE 25 MG TABLET PO SCH (08:58)
[2016-04-30] MEDS: HEPARIN SODIUM, PORCINE 5000 UNITS/1 ML VIAL SQ SCH ×2 (08:58→21:17)
[2016-04-30] MEDS: VIT B CMPLX 3/FA/VIT C/BIOTIN 1 TAB TABLET PO SCH (08:58)
[2016-04-30] MEDS: ASCORBIC ACID 500 MG TABLET PO SCH (08:58)
[2016-04-30] MEDS: ERGOCALCIFEROL (VITAMIN D 2) 50,000 UNIT CAPSULE PO SCH (08:58)
[2016-04-30] MEDS: PROSOURCE / PROSTAT (PYXIS) 30 ML UDC PO SCH ×3 (08:58→17:28)
[2016-04-30] MEDS: MINERAL OIL/PETROL OINT 396 GM JAR TP SCH ×2 (08:59→21:17)
[2016-04-30] MEDS: HYDROGEN PEROXIDE 480 ML BOTTLE TP SCH ×2 (09:00→21:17)
[2016-04-30] MEDS: ZINC OXIDE 56.7 GM TUBE TP SCH ×4 (09:00→21:17)
[2016-04-30 19:39] VITALS: BP 142/82
[2016-04-30] MEDS: INSULIN DETEMIR 100 UNIT/ML CARTRIDGE SQ SCH (21:18)
[2016-04-30] MEDS: TEMAZEPAM 15 MG CAPSULE PO SCH (21:18)
[2016-04-30] MEDS: MONTELUKAST SODIUM (10MG) 10 MG TABLET PO SCH (21:18)
[2016-05-01] MEDS: IPRATROPIUM NEB FS 0.5 MG/2.5 ML AMPUL.NEB IH SCH ×4 (02:04→19:53)
[2016-05-01] MEDS: ALBUTEROL FS 2.5 MG/3 ML VIAL.NEB NEB SCH ×4 (02:04→19:53)
[2016-05-01] MEDS: PANTOPRAZOLE 40 MG TABLET.DR PO SCH (05:46)
[2016-05-01] MEDS: diphenhydrAMINE HCL ELIX 25 MG/10 ML UDC PO PRN ×2 (05:54→16:00)
[2016-05-01] MEDS: BLOOD SUGAR DIAGNOSTIC 1 EACH STRIP VI SCH ×4 (07:23→21:22)
[2016-05-01 07:48] VITALS: BP 147/88
[2016-05-01] MEDS: BUDESONIDE RESPULE INH 0.5 MG/2 ML AMPUL.NEB IH SCH ×2 (08:08→19:53)
[2016-05-01] MEDS: SITAGLIPTIN PHOSPHATE 25 MG TABLET PO SCH (08:10)
[2016-05-01] MEDS: VIT B CMPLX 3/FA/VIT C/BIOTIN 1 TAB TABLET PO SCH (08:10)
[2016-05-01] MEDS: PROSOURCE / PROSTAT (PYXIS) 30 ML UDC PO SCH ×3 (08:10→16:56)
[2016-05-01] MEDS: GABAPENTIN 300 MG CAPSULE PO SCH ×3 (08:10→16:56)
[2016-05-01] MEDS: ASCORBIC ACID 500 MG TABLET PO SCH (08:10)
[2016-05-01] MEDS: DOCUSATE SODIUM 100 MG CAPSULE PO SCH (08:10)
[2016-05-01] MEDS: POLYVINYL ALCOHOL 15 ML BOTTLE EACHEYE SCH ×4 (08:10→21:22)
[2016-05-01] MEDS: HEPARIN SODIUM, PORCINE 5000 UNITS/1 ML VIAL SQ SCH ×2 (09:37→21:22)
[2016-05-01] MEDS: ZINC OXIDE 56.7 GM TUBE TP SCH ×3 (09:37→21:22)
[2016-05-01] MEDS: HYDROGEN PEROXIDE 480 ML BOTTLE TP SCH ×2 (09:37→21:22)
[2016-05-01] MEDS: MINERAL OIL/PETROL OINT 396 GM JAR TP SCH ×2 (09:37→21:22)
[2016-05-01] MEDS: INSULIN LISPRO/ASPART 100 UNIT/ML CARTRIDGE SQ PRN (11:45)
[2016-05-01] MEDS: GUAIFENESIN/D-METHORPHAN HB 5 ML UDC PO PRN (15:00)
[2016-05-01 19:52] VITALS: BP 134/86
[2016-05-01] MEDS: TEMAZEPAM 15 MG CAPSULE PO SCH (21:22)
[2016-05-01] MEDS: MONTELUKAST SODIUM (10MG) 10 MG TABLET PO SCH (21:22)
[2016-05-01] MEDS: INSULIN DETEMIR 100 UNIT/ML CARTRIDGE SQ SCH (21:23)
[2016-05-02] MEDS: ALBUTEROL FS 2.5 MG/3 ML VIAL.NEB NEB SCH ×4 (02:00→19:32)
[2016-05-02] MEDS: IPRATROPIUM NEB FS 0.5 MG/2.5 ML AMPUL.NEB IH SCH ×4 (02:00→19:32)
[2016-05-02] MEDS: PANTOPRAZOLE 40 MG TABLET.DR PO SCH (05:47)
[2016-05-02] MEDS: BLOOD SUGAR DIAGNOSTIC 1 EACH STRIP VI SCH ×4 (07:44→22:05)
[2016-05-02 07:57] VITALS: BP 142/89
[2016-05-02] MEDS: DOCUSATE SODIUM 100 MG CAPSULE PO SCH (08:07)
[2016-05-02] MEDS: POLYVINYL ALCOHOL 15 ML BOTTLE EACHEYE SCH ×4 (08:07→21:01)
[2016-05-02] MEDS: GABAPENTIN 300 MG CAPSULE PO SCH ×3 (08:08→17:10)
[2016-05-02] MEDS: SITAGLIPTIN PHOSPHATE 25 MG TABLET PO SCH (08:08)
[2016-05-02] MEDS: PROSOURCE / PROSTAT (PYXIS) 30 ML UDC PO SCH ×3 (08:08→17:10)
[2016-05-02] MEDS: HEPARIN SODIUM, PORCINE 5000 UNITS/1 ML VIAL SQ SCH ×2 (08:08→21:04)
[2016-05-02] MEDS: VIT B CMPLX 3/FA/VIT C/BIOTIN 1 TAB TABLET PO SCH (08:08)
[2016-05-02] MEDS: ASCORBIC ACID 500 MG TABLET PO SCH (08:08)
[2016-05-02] MEDS: BUDESONIDE RESPULE INH 0.5 MG/2 ML AMPUL.NEB IH SCH ×2 (08:27→19:32)
[2016-05-02] MEDS: GUAIFENESIN/D-METHORPHAN HB 5 ML UDC PO PRN ×3 (09:00→17:26)
[2016-05-02] MEDS: MINERAL OIL/PETROL OINT 396 GM JAR TP SCH ×2 (09:00→21:05)
[2016-05-02] MEDS: HYDROGEN PEROXIDE 480 ML BOTTLE TP SCH ×2 (09:00→21:05)
[2016-05-02] MEDS: ZINC OXIDE 56.7 GM TUBE TP SCH ×2 (09:00→21:05)
[2016-05-02] MEDS: diphenhydrAMINE HCL ELIX 25 MG/10 ML UDC PO PRN (17:11)
[2016-05-02] MEDS: INSULIN LISPRO/ASPART 100 UNIT/ML CARTRIDGE SQ PRN ×2 (17:17→22:06)
[2016-05-02 19:54] VITALS: BP 123/75
[2016-05-02] MEDS: TEMAZEPAM 15 MG CAPSULE PO SCH (21:02)
[2016-05-02] MEDS: MONTELUKAST SODIUM (10MG) 10 MG TABLET PO SCH (21:03)
[2016-05-02] MEDS: INSULIN DETEMIR 100 UNIT/ML CARTRIDGE SQ SCH (22:05)
[2016-05-03] MEDS: IPRATROPIUM NEB FS 0.5 MG/2.5 ML AMPUL.NEB IH SCH ×4 (02:18→21:04)
[2016-05-03] MEDS: ALBUTEROL FS 2.5 MG/3 ML VIAL.NEB NEB SCH ×4 (02:18→21:04)
[2016-05-03] MEDS: PANTOPRAZOLE 40 MG TABLET.DR PO SCH (05:19)
[2016-05-03] MEDS: diphenhydrAMINE HCL ELIX 25 MG/10 ML UDC PO PRN ×2 (05:20→20:56)
[2016-05-03] MEDS: BLOOD SUGAR DIAGNOSTIC 1 EACH STRIP VI SCH ×4 (07:26→21:42)
[2016-05-03] MEDS: INSULIN LISPRO/ASPART 100 UNIT/ML CARTRIDGE SQ PRN ×3 (07:27→21:43)
[2016-05-03 08:00] VITALS: BP 126/79
[2016-05-03] MEDS: BUDESONIDE RESPULE INH 0.5 MG/2 ML AMPUL.NEB IH SCH ×2 (08:46→21:04)
[2016-05-03] MEDS: MINERAL OIL/PETROL OINT 396 GM JAR TP SCH ×2 (09:00→21:39)
[2016-05-03] MEDS: HYDROGEN PEROXIDE 480 ML BOTTLE TP SCH ×2 (09:00→21:39)
[2016-05-03] MEDS: ZINC OXIDE 56.7 GM TUBE TP SCH ×2 (09:00→21:39)
[2016-05-03] MEDS: ASCORBIC ACID 500 MG TABLET PO SCH (09:20)
[2016-05-03] MEDS: PROSOURCE / PROSTAT (PYXIS) 30 ML UDC PO SCH ×3 (09:20→17:00)
[2016-05-03] MEDS: VIT B CMPLX 3/FA/VIT C/BIOTIN 1 TAB TABLET PO SCH (09:20)
[2016-05-03] MEDS: DOCUSATE SODIUM 100 MG CAPSULE PO SCH (09:20)
[2016-05-03] MEDS: GABAPENTIN 300 MG CAPSULE PO SCH ×3 (09:20→17:00)
[2016-05-03] MEDS: POLYVINYL ALCOHOL 15 ML BOTTLE EACHEYE SCH ×4 (09:20→21:38)
[2016-05-03] MEDS: SITAGLIPTIN PHOSPHATE 25 MG TABLET PO SCH (09:20)
[2016-05-03] MEDS: HEPARIN SODIUM, PORCINE 5000 UNITS/1 ML VIAL SQ SCH ×2 (09:21→21:39)
[2016-05-03 19:56] VITALS: BP 107/66
[2016-05-03] MEDS: MONTELUKAST SODIUM (10MG) 10 MG TABLET PO SCH (21:39)
[2016-05-03] MEDS: TEMAZEPAM 15 MG CAPSULE PO SCH (21:39)
[2016-05-03] MEDS: INSULIN DETEMIR 100 UNIT/ML CARTRIDGE SQ SCH (21:42)
[2016-05-04] MEDS: IPRATROPIUM NEB FS 0.5 MG/2.5 ML AMPUL.NEB IH SCH ×4 (01:57→20:31)
[2016-05-04] MEDS: ALBUTEROL FS 2.5 MG/3 ML VIAL.NEB NEB SCH ×4 (01:57→20:31)
[2016-05-04] MEDS: PANTOPRAZOLE 40 MG TABLET.DR PO SCH (06:34)
[2016-05-04] MEDS: BLOOD SUGAR DIAGNOSTIC 1 EACH STRIP VI SCH ×4 (06:34→21:19)
[2016-05-04] MEDS: INSULIN LISPRO/ASPART 100 UNIT/ML CARTRIDGE SQ PRN ×2 (06:35→18:07)
[2016-05-04 08:00] VITALS: BP 136/81
[2016-05-04] MEDS: MINERAL OIL/PETROL OINT 396 GM JAR TP SCH ×2 (08:35→21:18)
[2016-05-04] MEDS: PROSOURCE / PROSTAT (PYXIS) 30 ML UDC PO SCH ×3 (08:35→17:00)
[2016-05-04] MEDS: HEPARIN SODIUM, PORCINE 5000 UNITS/1 ML VIAL SQ SCH ×2 (08:35→20:35)
[2016-05-04] MEDS: DOCUSATE SODIUM 100 MG CAPSULE PO SCH (08:35)
[2016-05-04] MEDS: GABAPENTIN 300 MG CAPSULE PO SCH ×3 (08:35→17:00)
[2016-05-04] MEDS: POLYVINYL ALCOHOL 15 ML BOTTLE EACHEYE SCH ×4 (08:35→20:35)
[2016-05-04] MEDS: ASCORBIC ACID 500 MG TABLET PO SCH (08:35)
[2016-05-04] MEDS: SITAGLIPTIN PHOSPHATE 25 MG TABLET PO SCH (08:35)
[2016-05-04] MEDS: VIT B CMPLX 3/FA/VIT C/BIOTIN 1 TAB TABLET PO SCH (08:35)
[2016-05-04] MEDS: diphenhydrAMINE HCL ELIX 25 MG/10 ML UDC PO PRN ×3 (08:37→20:26)
[2016-05-04] MEDS: GUAIFENESIN/D-METHORPHAN HB 5 ML UDC PO PRN ×3 (08:37→20:26)
[2016-05-04] MEDS: BUDESONIDE RESPULE INH 0.5 MG/2 ML AMPUL.NEB IH SCH ×2 (08:43→20:49)
[2016-05-04] MEDS: HYDROGEN PEROXIDE 480 ML BOTTLE TP SCH ×2 (16:00→21:18)
[2016-05-04] MEDS: ZINC OXIDE 56.7 GM TUBE TP SCH ×2 (16:00→20:35)
[2016-05-04 19:52] VITALS: BP 139/75
[2016-05-04] MEDS: TEMAZEPAM 15 MG CAPSULE PO SCH (21:18)
[2016-05-04] MEDS: MONTELUKAST SODIUM (10MG) 10 MG TABLET PO SCH (21:19)
[2016-05-04] MEDS: INSULIN DETEMIR 100 UNIT/ML CARTRIDGE SQ SCH (21:19)
[2016-05-05] MEDS: IPRATROPIUM NEB FS 0.5 MG/2.5 ML AMPUL.NEB IH SCH ×4 (01:51→19:30)
[2016-05-05] MEDS: ALBUTEROL FS 2.5 MG/3 ML VIAL.NEB NEB SCH ×4 (01:51→19:30)
[2016-05-05] MEDS: PANTOPRAZOLE 40 MG TABLET.DR PO SCH (06:35)
[2016-05-05] MEDS: BLOOD SUGAR DIAGNOSTIC 1 EACH STRIP VI SCH ×4 (06:39→21:41)
[2016-05-05] MEDS: INSULIN LISPRO/ASPART 100 UNIT/ML CARTRIDGE SQ PRN (06:40)
[2016-05-05 07:45] VITALS: BP 135/99
[2016-05-05] MEDS: BUDESONIDE RESPULE INH 0.5 MG/2 ML AMPUL.NEB IH SCH ×2 (09:00→20:52)
[2016-05-05] MEDS: VIT B CMPLX 3/FA/VIT C/BIOTIN 1 TAB TABLET PO SCH (09:12)
[2016-05-05] MEDS: DOCUSATE SODIUM 100 MG CAPSULE PO SCH (09:12)
[2016-05-05] MEDS: SITAGLIPTIN PHOSPHATE 25 MG TABLET PO SCH (09:12)
[2016-05-05] MEDS: GABAPENTIN 300 MG CAPSULE PO SCH ×3 (09:12→17:13)
[2016-05-05] MEDS: PROSOURCE / PROSTAT (PYXIS) 30 ML UDC PO SCH ×3 (09:12→17:13)
[2016-05-05] MEDS: ASCORBIC ACID 500 MG TABLET PO SCH (09:12)
[2016-05-05] MEDS: POLYVINYL ALCOHOL 15 ML BOTTLE EACHEYE SCH ×4 (09:12→21:40)
[2016-05-05] MEDS: HEPARIN SODIUM, PORCINE 5000 UNITS/1 ML VIAL SQ SCH ×2 (09:13→21:40)
[2016-05-05] MEDS: HYDROGEN PEROXIDE 480 ML BOTTLE TP SCH ×2 (09:14→21:41)
[2016-05-05] MEDS: MINERAL OIL/PETROL OINT 396 GM JAR TP SCH ×2 (09:14→21:41)
[2016-05-05] MEDS: ZINC OXIDE 56.7 GM TUBE TP SCH ×2 (09:14→21:41)
[2016-05-05] MEDS: GUAIFENESIN/D-METHORPHAN HB 5 ML UDC PO PRN ×2 (09:15→17:14)
[2016-05-05] MEDS: diphenhydrAMINE HCL ELIX 25 MG/10 ML UDC PO PRN ×2 (09:15→17:14)
[2016-05-05 19:47] VITALS: BP 137/80
[2016-05-05] MEDS: INSULIN DETEMIR 100 UNIT/ML CARTRIDGE SQ SCH (21:41)
[2016-05-05] MEDS: TEMAZEPAM 15 MG CAPSULE PO SCH (21:41)
[2016-05-05] MEDS: MONTELUKAST SODIUM (10MG) 10 MG TABLET PO SCH (21:41)
[2016-05-06] MEDS: IPRATROPIUM NEB FS 0.5 MG/2.5 ML AMPUL.NEB IH SCH ×4 (01:33→20:25)
[2016-05-06] MEDS: ALBUTEROL FS 2.5 MG/3 ML VIAL.NEB NEB SCH ×4 (01:33→20:25)
[2016-05-06] MEDS: PANTOPRAZOLE 40 MG TABLET.DR PO SCH (05:47)
[2016-05-06 07:45] VITALS: BP 148/98
[2016-05-06] MEDS: SITAGLIPTIN PHOSPHATE 25 MG TABLET PO SCH (08:04)
[2016-05-06] MEDS: DOCUSATE SODIUM 100 MG CAPSULE PO SCH (08:04)
[2016-05-06] MEDS: POLYVINYL ALCOHOL 15 ML BOTTLE EACHEYE SCH ×4 (08:04→21:00)
[2016-05-06] MEDS: BLOOD SUGAR DIAGNOSTIC 1 EACH STRIP VI SCH ×4 (08:04→22:12)
[2016-05-06] MEDS: ASCORBIC ACID 500 MG TABLET PO SCH (08:05)
[2016-05-06] MEDS: GABAPENTIN 300 MG CAPSULE PO SCH ×3 (08:05→17:03)
[2016-05-06] MEDS: MINERAL OIL/PETROL OINT 396 GM JAR TP SCH ×2 (08:05→21:00)
[2016-05-06] MEDS: HEPARIN SODIUM, PORCINE 5000 UNITS/1 ML VIAL SQ SCH ×2 (08:05→21:00)
[2016-05-06] MEDS: PROSOURCE / PROSTAT (PYXIS) 30 ML UDC PO SCH ×3 (08:05→17:03)
[2016-05-06] MEDS: VIT B CMPLX 3/FA/VIT C/BIOTIN 1 TAB TABLET PO SCH (08:05)
[2016-05-06] MEDS: diphenhydrAMINE HCL ELIX 25 MG/10 ML UDC PO PRN ×2 (08:06→18:30)
[2016-05-06] MEDS: GUAIFENESIN/D-METHORPHAN HB 5 ML UDC PO PRN (08:07)
[2016-05-06] MEDS: ACETAMINOPHEN 650 MG/20 ML UDC- FOR SA PATIENTS ONLY PO PRN (08:07)
[2016-05-06] MEDS: BUDESONIDE RESPULE INH 0.5 MG/2 ML AMPUL.NEB IH SCH ×2 (09:24→20:25)
[2016-05-06] MEDS: INSULIN LISPRO/ASPART 100 UNIT/ML CARTRIDGE SQ PRN (12:39)
[2016-05-06] MEDS: BISACODYL SUPP (10 MG) 10 MG/SUPP.RECT SUPP.RECT RC PRN (15:29)
[2016-05-06] MEDS: ZINC OXIDE 56.7 GM TUBE TP SCH ×2 (18:00→21:00)
[2016-05-06] MEDS: HYDROGEN PEROXIDE 480 ML BOTTLE TP SCH ×2 (18:00→21:00)
[2016-05-06 19:57] VITALS: BP 147/91
[2016-05-06] MEDS: MONTELUKAST SODIUM (10MG) 10 MG TABLET PO SCH (22:11)
[2016-05-06] MEDS: TEMAZEPAM 15 MG CAPSULE PO SCH (22:11)
[2016-05-06] MEDS: INSULIN DETEMIR 100 UNIT/ML CARTRIDGE SQ SCH (22:12)
[2016-05-07] MEDS: GUAIFENESIN/D-METHORPHAN HB 5 ML UDC PO PRN ×3 (00:24→21:46)
[2016-05-07] MEDS: ALBUTEROL FS 2.5 MG/3 ML VIAL.NEB NEB SCH ×4 (01:51→20:26)
[2016-05-07] MEDS: IPRATROPIUM NEB FS 0.5 MG/2.5 ML AMPUL.NEB IH SCH ×4 (01:51→20:26)
[2016-05-07] MEDS: PANTOPRAZOLE 40 MG TABLET.DR PO SCH (05:19)
[2016-05-07 07:35] VITALS: BP 144/85
[2016-05-07] MEDS: BLOOD SUGAR DIAGNOSTIC 1 EACH STRIP VI SCH ×4 (07:54→21:46)
[2016-05-07] MEDS: DOCUSATE SODIUM 100 MG CAPSULE PO SCH (08:17)
[2016-05-07] MEDS: SITAGLIPTIN PHOSPHATE 25 MG TABLET PO SCH (08:17)
[2016-05-07] MEDS: VIT B CMPLX 3/FA/VIT C/BIOTIN 1 TAB TABLET PO SCH (08:17)
[2016-05-07] MEDS: PROSOURCE / PROSTAT (PYXIS) 30 ML UDC PO SCH ×3 (08:17→17:07)
[2016-05-07] MEDS: POLYVINYL ALCOHOL 15 ML BOTTLE EACHEYE SCH ×4 (08:17→21:44)
[2016-05-07] MEDS: ERGOCALCIFEROL (VITAMIN D 2) 50,000 UNIT CAPSULE PO SCH (08:17)
[2016-05-07] MEDS: GABAPENTIN 300 MG CAPSULE PO SCH ×3 (08:17→17:06)
[2016-05-07] MEDS: ASCORBIC ACID 500 MG TABLET PO SCH (08:17)
[2016-05-07] MEDS: MINERAL OIL/PETROL OINT 396 GM JAR TP SCH ×2 (08:17→21:45)
[2016-05-07] MEDS: HEPARIN SODIUM, PORCINE 5000 UNITS/1 ML VIAL SQ SCH ×2 (08:18→21:45)
[2016-05-07] MEDS: diphenhydrAMINE HCL ELIX 25 MG/10 ML UDC PO PRN (08:32)
[2016-05-07] MEDS: ACETAMINOPHEN 650 MG/20 ML UDC- FOR SA PATIENTS ONLY PO PRN (08:33)
[2016-05-07] MEDS: BUDESONIDE RESPULE INH 0.5 MG/2 ML AMPUL.NEB IH SCH ×2 (09:00→20:54)
[2016-05-07] MEDS: ZINC OXIDE 56.7 GM TUBE TP SCH ×2 (17:00→21:45)
[2016-05-07] MEDS: HYDROGEN PEROXIDE 480 ML BOTTLE TP SCH ×2 (17:00→21:45)
[2016-05-07] MEDS: INSULIN LISPRO/ASPART 100 UNIT/ML CARTRIDGE SQ PRN (17:09)
[2016-05-07 19:49] VITALS: BP 145/88
--- NOTE | 2016-05-07 20:00 | NUR ---
RN NOTES Seen by Radha Petty. Pt complained of tracheal pain. New order for Lidocaine 1% via neb q6hr, noted and carried out.
[2016-05-07] MEDS: TEMAZEPAM 15 MG CAPSULE PO SCH (21:45)
[2016-05-07] MEDS: MONTELUKAST SODIUM (10MG) 10 MG TABLET PO SCH (21:45)
[2016-05-07] MEDS: INSULIN DETEMIR 100 UNIT/ML CARTRIDGE SQ SCH (21:46)
[2016-05-07] MEDS: TRAMADOL HCL 50 MG TABLET PO PRN (21:47)
[2016-05-08] MEDS: IPRATROPIUM NEB FS 0.5 MG/2.5 ML AMPUL.NEB IH SCH ×4 (01:04→20:23)
[2016-05-08] MEDS: ALBUTEROL FS 2.5 MG/3 ML VIAL.NEB NEB SCH ×4 (01:04→20:23)
[2016-05-08] MEDS: LIDOCAINE /MPF 1% VIAL 5 ML VIAL NEB SCH ×4 (01:30→20:24)
[2016-05-08] MEDS: PANTOPRAZOLE 40 MG TABLET.DR PO SCH (05:33)
[2016-05-08 07:52] VITALS: BP 139/91
[2016-05-08] MEDS: BUDESONIDE RESPULE INH 0.5 MG/2 ML AMPUL.NEB IH SCH ×2 (08:05→20:34)
[2016-05-08] MEDS: BLOOD SUGAR DIAGNOSTIC 1 EACH STRIP VI SCH ×4 (08:27→21:38)
[2016-05-08] MEDS: GABAPENTIN 300 MG CAPSULE PO SCH ×3 (08:28→16:27)
[2016-05-08] MEDS: ASCORBIC ACID 500 MG TABLET PO SCH (08:28)
[2016-05-08] MEDS: POLYVINYL ALCOHOL 15 ML BOTTLE EACHEYE SCH ×4 (08:28→21:04)
[2016-05-08] MEDS: VIT B CMPLX 3/FA/VIT C/BIOTIN 1 TAB TABLET PO SCH (08:28)
[2016-05-08] MEDS: PROSOURCE / PROSTAT (PYXIS) 30 ML UDC PO SCH ×3 (08:28→16:27)
[2016-05-08] MEDS: HEPARIN SODIUM, PORCINE 5000 UNITS/1 ML VIAL SQ SCH ×2 (08:28→21:04)
[2016-05-08] MEDS: SITAGLIPTIN PHOSPHATE 25 MG TABLET PO SCH (08:28)
[2016-05-08] MEDS: DOCUSATE SODIUM 100 MG CAPSULE PO SCH (08:28)
[2016-05-08] MEDS: MINERAL OIL/PETROL OINT 396 GM JAR TP SCH ×2 (08:29→21:04)
[2016-05-08] MEDS: ZINC OXIDE 56.7 GM TUBE TP SCH ×2 (08:29→21:05)
[2016-05-08] MEDS: HYDROGEN PEROXIDE 480 ML BOTTLE TP SCH ×2 (08:29→21:04)
[2016-05-08] MEDS: GUAIFENESIN/D-METHORPHAN HB 5 ML UDC PO PRN ×2 (09:18→16:23)
[2016-05-08] MEDS: INSULIN LISPRO/ASPART 100 UNIT/ML CARTRIDGE SQ PRN ×3 (11:28→21:39)
--- NOTE | 2016-05-08 16:15 | NUR ---
Seen and examined by Dr. Helen Prieto, reported to her that resident was complaining of tracheal pain, new order for Lidocaine inhalation administered by RT. Resident claims that he no longer have tracheal pain.
[2016-05-08 19:56] VITALS: BP 140/83
[2016-05-08] MEDS: MONTELUKAST SODIUM (10MG) 10 MG TABLET PO SCH (21:05)
[2016-05-08] MEDS: diphenhydrAMINE HCL ELIX 25 MG/10 ML UDC PO PRN (21:05)
[2016-05-08] MEDS: TEMAZEPAM 15 MG CAPSULE PO SCH (21:05)
[2016-05-08] MEDS: INSULIN DETEMIR 100 UNIT/ML CARTRIDGE SQ SCH (21:38)
[2016-05-09] MEDS: LIDOCAINE /MPF 1% VIAL 5 ML VIAL NEB SCH (01:30)
[2016-05-09] MEDS: ALBUTEROL FS 2.5 MG/3 ML VIAL.NEB NEB SCH ×4 (01:39→19:49)
[2016-05-09] MEDS: IPRATROPIUM NEB FS 0.5 MG/2.5 ML AMPUL.NEB IH SCH ×4 (01:39→19:49)
[2016-05-09] MEDS: PANTOPRAZOLE 40 MG TABLET.DR PO SCH (06:26)
[2016-05-09] MEDS: BLOOD SUGAR DIAGNOSTIC 1 EACH STRIP VI SCH ×4 (07:01→22:00)
[2016-05-09] MEDS: INSULIN LISPRO/ASPART 100 UNIT/ML CARTRIDGE SQ PRN ×2 (07:02→17:09)
[2016-05-09] MEDS: BUDESONIDE RESPULE INH 0.5 MG/2 ML AMPUL.NEB IH SCH ×2 (08:10→19:49)
[2016-05-09 08:17] VITALS: BP 139/80
[2016-05-09] MEDS: SITAGLIPTIN PHOSPHATE 25 MG TABLET PO SCH (08:29)
[2016-05-09] MEDS: ASCORBIC ACID 500 MG TABLET PO SCH (08:29)
[2016-05-09] MEDS: PROSOURCE / PROSTAT (PYXIS) 30 ML UDC PO SCH ×3 (08:29→17:08)
[2016-05-09] MEDS: DOCUSATE SODIUM 100 MG CAPSULE PO SCH (08:29)
[2016-05-09] MEDS: VIT B CMPLX 3/FA/VIT C/BIOTIN 1 TAB TABLET PO SCH (08:29)
[2016-05-09] MEDS: POLYVINYL ALCOHOL 15 ML BOTTLE EACHEYE SCH ×4 (08:29→21:00)
[2016-05-09] MEDS: GABAPENTIN 300 MG CAPSULE PO SCH ×3 (08:29→17:08)
[2016-05-09] MEDS: HYDROGEN PEROXIDE 480 ML BOTTLE TP SCH ×2 (08:30→21:00)
[2016-05-09] MEDS: HEPARIN SODIUM, PORCINE 5000 UNITS/1 ML VIAL SQ SCH ×2 (08:30→21:00)
[2016-05-09] MEDS: MINERAL OIL/PETROL OINT 396 GM JAR TP SCH ×2 (08:30→21:00)
[2016-05-09] MEDS: GUAIFENESIN/D-METHORPHAN HB 5 ML UDC PO PRN (08:30)
[2016-05-09] MEDS: ZINC OXIDE 56.7 GM TUBE TP SCH ×2 (08:30→21:00)
--- NOTE | 2016-05-09 11:01 | NUR ---
Social Service Section of [facility] assessment (1st quarter) completed. Resident is alert and communicative. He would like to be discharged home when medically stable. Resident continues to have dialysis 3x/week on Tuesdays, and Saturdays.
[2016-05-09 19:44] VITALS: BP 144/90
[2016-05-09] MEDS: INSULIN DETEMIR 100 UNIT/ML CARTRIDGE SQ SCH (22:00)
[2016-05-09] MEDS: MONTELUKAST SODIUM (10MG) 10 MG TABLET PO SCH (22:00)
[2016-05-09] MEDS: TEMAZEPAM 15 MG CAPSULE PO SCH (22:00)
[2016-05-10] MEDS: ALBUTEROL FS 2.5 MG/3 ML VIAL.NEB NEB SCH ×4 (02:26→20:24)
[2016-05-10] MEDS: IPRATROPIUM NEB FS 0.5 MG/2.5 ML AMPUL.NEB IH SCH ×4 (02:26→20:24)
[2016-05-10] MEDS: diphenhydrAMINE HCL ELIX 25 MG/10 ML UDC PO PRN (05:33)
[2016-05-10] MEDS: PANTOPRAZOLE 40 MG TABLET.DR PO SCH (05:33)
[2016-05-10] MEDS: BLOOD SUGAR DIAGNOSTIC 1 EACH STRIP VI SCH ×4 (06:55→21:20)
[2016-05-10] MEDS: INSULIN LISPRO/ASPART 100 UNIT/ML CARTRIDGE SQ PRN ×3 (06:55→21:21)
[2016-05-10 07:50] VITALS: BP 125/93
[2016-05-10] MEDS: POLYVINYL ALCOHOL 15 ML BOTTLE EACHEYE SCH ×4 (08:26→21:17)
[2016-05-10] MEDS: DOCUSATE SODIUM 100 MG CAPSULE PO SCH (08:26)
[2016-05-10] MEDS: ASCORBIC ACID 500 MG TABLET PO SCH (08:26)
[2016-05-10] MEDS: PROSOURCE / PROSTAT (PYXIS) 30 ML UDC PO SCH ×3 (08:26→17:15)
[2016-05-10] MEDS: GABAPENTIN 300 MG CAPSULE PO SCH ×3 (08:26→17:15)
[2016-05-10] MEDS: VIT B CMPLX 3/FA/VIT C/BIOTIN 1 TAB TABLET PO SCH (08:26)
[2016-05-10] MEDS: SITAGLIPTIN PHOSPHATE 25 MG TABLET PO SCH (08:26)
[2016-05-10] MEDS: MINERAL OIL/PETROL OINT 396 GM JAR TP SCH ×2 (08:27→21:18)
[2016-05-10] MEDS: HYDROGEN PEROXIDE 480 ML BOTTLE TP SCH ×2 (08:27→21:18)
[2016-05-10] MEDS: HEPARIN SODIUM, PORCINE 5000 UNITS/1 ML VIAL SQ SCH ×2 (08:27→21:18)
[2016-05-10] MEDS: ZINC OXIDE 56.7 GM TUBE TP SCH ×2 (08:27→21:18)
[2016-05-10] MEDS: GUAIFENESIN/D-METHORPHAN HB 5 ML UDC PO PRN ×2 (08:27→18:56)
[2016-05-10] MEDS: BUDESONIDE RESPULE INH 0.5 MG/2 ML AMPUL.NEB IH SCH ×2 (08:37→20:45)
[2016-05-10] MEDS ORDERED: LIDOCAINE /MPF 1% VIAL 5 ML VIAL NEB PRN (14:00)
[2016-05-10 19:42] VITALS: BP 133/87
[2016-05-10] MEDS: MONTELUKAST SODIUM (10MG) 10 MG TABLET PO SCH (21:19)
[2016-05-10] MEDS: INSULIN DETEMIR 100 UNIT/ML CARTRIDGE SQ SCH (21:19)
[2016-05-10] MEDS: TEMAZEPAM 15 MG CAPSULE PO SCH (21:19)
[2016-05-11] MEDS: ALBUTEROL FS 2.5 MG/3 ML VIAL.NEB NEB SCH ×4 (00:53→20:37)
[2016-05-11] MEDS: IPRATROPIUM NEB FS 0.5 MG/2.5 ML AMPUL.NEB IH SCH ×4 (00:53→20:37)
[2016-05-11] MEDS: BLOOD SUGAR DIAGNOSTIC 1 EACH STRIP VI SCH ×4 (06:37→21:19)
[2016-05-11] MEDS: PANTOPRAZOLE 40 MG TABLET.DR PO SCH (06:37)
[2016-05-11] MEDS: INSULIN LISPRO/ASPART 100 UNIT/ML CARTRIDGE SQ PRN ×3 (06:38→21:20)
[2016-05-11] MEDS: diphenhydrAMINE HCL ELIX 25 MG/10 ML UDC PO PRN ×3 (06:39→21:20)
[2016-05-11 07:56] VITALS: BP 154/94
[2016-05-11] MEDS: SITAGLIPTIN PHOSPHATE 25 MG TABLET PO SCH (08:01)
[2016-05-11] MEDS: VIT B CMPLX 3/FA/VIT C/BIOTIN 1 TAB TABLET PO SCH (08:01)
[2016-05-11] MEDS: POLYVINYL ALCOHOL 15 ML BOTTLE EACHEYE SCH ×4 (08:01→21:05)
[2016-05-11] MEDS: DOCUSATE SODIUM 100 MG CAPSULE PO SCH (08:01)
[2016-05-11] MEDS: GUAIFENESIN/D-METHORPHAN HB 5 ML UDC PO PRN ×3 (08:01→21:20)
[2016-05-11] MEDS: ASCORBIC ACID 500 MG TABLET PO SCH (08:02)
[2016-05-11] MEDS: GABAPENTIN 300 MG CAPSULE PO SCH ×3 (08:02→17:05)
[2016-05-11] MEDS: PROSOURCE / PROSTAT (PYXIS) 30 ML UDC PO SCH ×3 (08:02→17:05)
[2016-05-11] MEDS: HEPARIN SODIUM, PORCINE 5000 UNITS/1 ML VIAL SQ SCH ×2 (08:02→21:05)
[2016-05-11] MEDS: MINERAL OIL/PETROL OINT 396 GM JAR TP SCH ×2 (09:00→21:05)
[2016-05-11] MEDS: BUDESONIDE RESPULE INH 0.5 MG/2 ML AMPUL.NEB IH SCH ×2 (09:00→20:55)
[2016-05-11] MEDS: HYDROGEN PEROXIDE 480 ML BOTTLE TP SCH ×2 (15:00→21:05)
[2016-05-11] MEDS: ZINC OXIDE 56.7 GM TUBE TP SCH ×2 (15:00→21:05)
[2016-05-11 19:50] VITALS: BP 135/86
[2016-05-11] MEDS: TEMAZEPAM 15 MG CAPSULE PO SCH (21:06)
[2016-05-11] MEDS: MONTELUKAST SODIUM (10MG) 10 MG TABLET PO SCH (21:06)
[2016-05-11] MEDS: INSULIN DETEMIR 100 UNIT/ML CARTRIDGE SQ SCH (21:19)
[2016-05-12] MEDS: IPRATROPIUM NEB FS 0.5 MG/2.5 ML AMPUL.NEB IH SCH ×4 (01:05→20:40)
[2016-05-12] MEDS: ALBUTEROL FS 2.5 MG/3 ML VIAL.NEB NEB SCH ×4 (01:05→20:40)
[2016-05-12] MEDS: diphenhydrAMINE HCL ELIX 25 MG/10 ML UDC PO PRN ×2 (06:34→13:29)
[2016-05-12] MEDS: BLOOD SUGAR DIAGNOSTIC 1 EACH STRIP VI SCH ×4 (06:34→21:37)
[2016-05-12] MEDS: INSULIN LISPRO/ASPART 100 UNIT/ML CARTRIDGE SQ PRN ×2 (06:34→11:44)
[2016-05-12] MEDS: GUAIFENESIN/D-METHORPHAN HB 5 ML UDC PO PRN (06:34)
[2016-05-12] MEDS: PANTOPRAZOLE 40 MG TABLET.DR PO SCH (06:34)
[2016-05-12] MEDS: BUDESONIDE RESPULE INH 0.5 MG/2 ML AMPUL.NEB IH SCH ×2 (08:05→20:40)
[2016-05-12 08:08] VITALS: BP 146/91
[2016-05-12] MEDS: POLYVINYL ALCOHOL 15 ML BOTTLE EACHEYE SCH ×4 (09:52→21:36)
[2016-05-12] MEDS: GABAPENTIN 300 MG CAPSULE PO SCH ×3 (09:52→17:45)
[2016-05-12] MEDS: ASCORBIC ACID 500 MG TABLET PO SCH (09:52)
[2016-05-12] MEDS: DOCUSATE SODIUM 100 MG CAPSULE PO SCH (09:52)
[2016-05-12] MEDS: VIT B CMPLX 3/FA/VIT C/BIOTIN 1 TAB TABLET PO SCH (09:52)
[2016-05-12] MEDS: PROSOURCE / PROSTAT (PYXIS) 30 ML UDC PO SCH ×3 (09:52→17:45)
[2016-05-12] MEDS: SITAGLIPTIN PHOSPHATE 25 MG TABLET PO SCH (09:52)
[2016-05-12] MEDS: ZINC OXIDE 56.7 GM TUBE TP SCH ×2 (09:53→21:37)
[2016-05-12] MEDS: HYDROGEN PEROXIDE 480 ML BOTTLE TP SCH ×2 (09:53→21:37)
[2016-05-12] MEDS: HEPARIN SODIUM, PORCINE 5000 UNITS/1 ML VIAL SQ SCH ×2 (09:53→21:37)
[2016-05-12] MEDS: MINERAL OIL/PETROL OINT 396 GM JAR TP SCH ×2 (09:53→21:37)
[2016-05-12 19:42] VITALS: BP 156/93
[2016-05-12] MEDS: INSULIN DETEMIR 100 UNIT/ML CARTRIDGE SQ SCH (21:37)
[2016-05-12] MEDS: MONTELUKAST SODIUM (10MG) 10 MG TABLET PO SCH (21:37)
[2016-05-12] MEDS: TEMAZEPAM 15 MG CAPSULE PO SCH (21:37)
[2016-05-13] MEDS: IPRATROPIUM NEB FS 0.5 MG/2.5 ML AMPUL.NEB IH SCH ×4 (02:30→19:47)
[2016-05-13] MEDS: ALBUTEROL FS 2.5 MG/3 ML VIAL.NEB NEB SCH ×4 (02:30→19:48)
[2016-05-13] MEDS: PANTOPRAZOLE 40 MG TABLET.DR PO SCH (05:20)
[2016-05-13] MEDS: BUDESONIDE RESPULE INH 0.5 MG/2 ML AMPUL.NEB IH SCH ×2 (07:13→20:06)
[2016-05-13] MEDS: BLOOD SUGAR DIAGNOSTIC 1 EACH STRIP VI SCH ×4 (07:47→21:18)
[2016-05-13 07:59] VITALS: BP 146/90
[2016-05-13] MEDS: GABAPENTIN 300 MG CAPSULE PO SCH ×3 (08:25→17:00)
[2016-05-13] MEDS: PROSOURCE / PROSTAT (PYXIS) 30 ML UDC PO SCH ×3 (08:25→17:00)
[2016-05-13] MEDS: VIT B CMPLX 3/FA/VIT C/BIOTIN 1 TAB TABLET PO SCH (08:25)
[2016-05-13] MEDS: ASCORBIC ACID 500 MG TABLET PO SCH (08:25)
[2016-05-13] MEDS: DOCUSATE SODIUM 100 MG CAPSULE PO SCH (08:25)
[2016-05-13] MEDS: POLYVINYL ALCOHOL 15 ML BOTTLE EACHEYE SCH ×4 (08:25→21:16)
[2016-05-13] MEDS: SITAGLIPTIN PHOSPHATE 25 MG TABLET PO SCH (08:25)
[2016-05-13] MEDS: HEPARIN SODIUM, PORCINE 5000 UNITS/1 ML VIAL SQ SCH ×2 (08:26→21:17)
[2016-05-13] MEDS: INSULIN LISPRO/ASPART 100 UNIT/ML CARTRIDGE SQ PRN (13:59)
--- NOTE | 2016-05-13 17:28 | NUR ---
Pt's blood sugar was 37, pt alert and responsive, no change in mental status. He refused D50, explained risks and benefits but still refused. Pt already eating his dinner and asked for 4 small cartons of orange juice. Will monitor.
[2016-05-13] MEDS: ZINC OXIDE 56.7 GM TUBE TP SCH ×2 (18:00→21:17)
[2016-05-13] MEDS: MINERAL OIL/PETROL OINT 396 GM JAR TP SCH ×2 (18:00→21:17)
[2016-05-13] MEDS: HYDROGEN PEROXIDE 480 ML BOTTLE TP SCH ×2 (18:00→21:17)
[2016-05-13 20:09] VITALS: BP 159/96
[2016-05-13] MEDS: TEMAZEPAM 15 MG CAPSULE PO SCH (21:17)
[2016-05-13] MEDS: MONTELUKAST SODIUM (10MG) 10 MG TABLET PO SCH (21:17)
[2016-05-13] MEDS: INSULIN DETEMIR 100 UNIT/ML CARTRIDGE SQ SCH (21:18)
[2016-05-14] MEDS: ALBUTEROL FS 2.5 MG/3 ML VIAL.NEB NEB SCH ×4 (01:51→20:13)
[2016-05-14] MEDS: IPRATROPIUM NEB FS 0.5 MG/2.5 ML AMPUL.NEB IH SCH ×4 (01:51→20:13)
[2016-05-14] MEDS: PANTOPRAZOLE 40 MG TABLET.DR PO SCH (05:16)
[2016-05-14 08:00] VITALS: BP 144/87
[2016-05-14] MEDS: BLOOD SUGAR DIAGNOSTIC 1 EACH STRIP VI SCH ×4 (08:02→21:30)
[2016-05-14] MEDS: VIT B CMPLX 3/FA/VIT C/BIOTIN 1 TAB TABLET PO SCH (08:21)
[2016-05-14] MEDS: POLYVINYL ALCOHOL 15 ML BOTTLE EACHEYE SCH ×4 (08:21→21:27)
[2016-05-14] MEDS: ACETAMINOPHEN 650 MG/20 ML UDC- FOR SA PATIENTS ONLY PO PRN (08:21)
[2016-05-14] MEDS: diphenhydrAMINE HCL ELIX 25 MG/10 ML UDC PO PRN ×2 (08:21→15:30)
[2016-05-14] MEDS: ERGOCALCIFEROL (VITAMIN D 2) 50,000 UNIT CAPSULE PO SCH (08:21)
[2016-05-14] MEDS: GUAIFENESIN/D-METHORPHAN HB 5 ML UDC PO PRN ×2 (08:21→15:30)
[2016-05-14] MEDS: SITAGLIPTIN PHOSPHATE 25 MG TABLET PO SCH (08:21)
[2016-05-14] MEDS: DOCUSATE SODIUM 100 MG CAPSULE PO SCH (08:21)
[2016-05-14] MEDS: HEPARIN SODIUM, PORCINE 5000 UNITS/1 ML VIAL SQ SCH ×2 (08:22→21:29)
[2016-05-14] MEDS: PROSOURCE / PROSTAT (PYXIS) 30 ML UDC PO SCH ×3 (08:22→17:53)
[2016-05-14] MEDS: GABAPENTIN 300 MG CAPSULE PO SCH ×3 (08:22→17:53)
[2016-05-14] MEDS: ASCORBIC ACID 500 MG TABLET PO SCH (08:22)
[2016-05-14] MEDS: BUDESONIDE RESPULE INH 0.5 MG/2 ML AMPUL.NEB IH SCH ×2 (08:47→20:34)
[2016-05-14] MEDS: ZINC OXIDE 56.7 GM TUBE TP SCH ×2 (09:00→21:29)
[2016-05-14] MEDS: HYDROGEN PEROXIDE 480 ML BOTTLE TP SCH ×2 (09:00→21:29)
[2016-05-14] MEDS: MINERAL OIL/PETROL OINT 396 GM JAR TP SCH ×2 (09:00→21:29)
[2016-05-14] MEDS: INSULIN LISPRO/ASPART 100 UNIT/ML CARTRIDGE SQ PRN (17:56)
[2016-05-14 20:09] VITALS: BP 146/96
[2016-05-14] MEDS: MONTELUKAST SODIUM (10MG) 10 MG TABLET PO SCH (21:29)
[2016-05-14] MEDS: TEMAZEPAM 15 MG CAPSULE PO SCH (21:29)
[2016-05-14] MEDS: INSULIN DETEMIR 100 UNIT/ML CARTRIDGE SQ SCH (21:30)
[2016-05-15] MEDS: IPRATROPIUM NEB FS 0.5 MG/2.5 ML AMPUL.NEB IH SCH ×4 (01:11→19:30)
[2016-05-15] MEDS: ALBUTEROL FS 2.5 MG/3 ML VIAL.NEB NEB SCH ×4 (01:12→19:30)
[2016-05-15] MEDS: PANTOPRAZOLE 40 MG TABLET.DR PO SCH (05:34)
[2016-05-15] MEDS: BLOOD SUGAR DIAGNOSTIC 1 EACH STRIP VI SCH ×4 (07:23→21:44)
[2016-05-15 08:21] VITALS: BP 136/78
[2016-05-15] MEDS: BUDESONIDE RESPULE INH 0.5 MG/2 ML AMPUL.NEB IH SCH ×2 (08:25→20:58)
[2016-05-15] MEDS: SITAGLIPTIN PHOSPHATE 25 MG TABLET PO SCH (08:36)
[2016-05-15] MEDS: PROSOURCE / PROSTAT (PYXIS) 30 ML UDC PO SCH ×3 (08:36→17:19)
[2016-05-15] MEDS: VIT B CMPLX 3/FA/VIT C/BIOTIN 1 TAB TABLET PO SCH (08:36)
[2016-05-15] MEDS: GABAPENTIN 300 MG CAPSULE PO SCH ×3 (08:36→17:19)
[2016-05-15] MEDS: DOCUSATE SODIUM 100 MG CAPSULE PO SCH (08:36)
[2016-05-15] MEDS: POLYVINYL ALCOHOL 15 ML BOTTLE EACHEYE SCH ×4 (08:36→21:27)
[2016-05-15] MEDS: ASCORBIC ACID 500 MG TABLET PO SCH (08:36)
[2016-05-15] MEDS: HEPARIN SODIUM, PORCINE 5000 UNITS/1 ML VIAL SQ SCH ×2 (08:37→21:28)
[2016-05-15] MEDS: diphenhydrAMINE HCL ELIX 25 MG/10 ML UDC PO PRN ×2 (09:00→22:03)
[2016-05-15] MEDS: GUAIFENESIN/D-METHORPHAN HB 5 ML UDC PO PRN (09:00)
[2016-05-15] MEDS: ZINC OXIDE 56.7 GM TUBE TP SCH ×2 (09:42→21:28)
[2016-05-15] MEDS: HYDROGEN PEROXIDE 480 ML BOTTLE TP SCH ×2 (09:42→21:28)
[2016-05-15] MEDS: MINERAL OIL/PETROL OINT 396 GM JAR TP SCH ×2 (09:42→21:28)
--- NOTE | 2016-05-15 11:00 | NUR ---
[facility] Member Connections Reps (Nicholas Can- [phone] and Samia Villafana- [phone]) came to visit with resident. They stated that they were here to conduct check in and see what other benefits resident may qualify for.
[2016-05-15] MEDS: INSULIN LISPRO/ASPART 100 UNIT/ML CARTRIDGE SQ PRN ×2 (12:09→21:45)
[2016-05-15] MEDS: NAPROXEN 500 MG TABLET PO PRN (17:19)
[2016-05-15 19:54] VITALS: BP 141/89
[2016-05-15] MEDS: MONTELUKAST SODIUM (10MG) 10 MG TABLET PO SCH (21:29)
[2016-05-15] MEDS: TEMAZEPAM 15 MG CAPSULE PO SCH (21:29)
[2016-05-15] MEDS: TRAMADOL HCL 50 MG TABLET PO PRN (21:30)
[2016-05-15] MEDS: INSULIN DETEMIR 100 UNIT/ML CARTRIDGE SQ SCH (21:44)
[2016-05-16] MEDS: ALBUTEROL FS 2.5 MG/3 ML VIAL.NEB NEB SCH ×4 (00:42→20:10)
[2016-05-16] MEDS: IPRATROPIUM NEB FS 0.5 MG/2.5 ML AMPUL.NEB IH SCH ×4 (00:42→20:10)
[2016-05-16] MEDS: PANTOPRAZOLE 40 MG TABLET.DR PO SCH (06:20)
[2016-05-16] MEDS: BLOOD SUGAR DIAGNOSTIC 1 EACH STRIP VI SCH ×4 (06:54→21:57)
[2016-05-16] MEDS: INSULIN LISPRO/ASPART 100 UNIT/ML CARTRIDGE SQ PRN ×3 (06:54→22:00)
[2016-05-16] MEDS: VIT B CMPLX 3/FA/VIT C/BIOTIN 1 TAB TABLET PO SCH (08:03)
[2016-05-16] MEDS: DOCUSATE SODIUM 100 MG CAPSULE PO SCH (08:03)
[2016-05-16] MEDS: MINERAL OIL/PETROL OINT 396 GM JAR TP SCH ×2 (08:03→20:53)
[2016-05-16] MEDS: ASCORBIC ACID 500 MG TABLET PO SCH (08:03)
[2016-05-16] MEDS: PROSOURCE / PROSTAT (PYXIS) 30 ML UDC PO SCH ×3 (08:03→16:43)
[2016-05-16] MEDS: HEPARIN SODIUM, PORCINE 5000 UNITS/1 ML VIAL SQ SCH ×2 (08:03→20:53)
[2016-05-16] MEDS: POLYVINYL ALCOHOL 15 ML BOTTLE EACHEYE SCH ×4 (08:03→20:53)
[2016-05-16] MEDS: GABAPENTIN 300 MG CAPSULE PO SCH ×3 (08:03→16:43)
[2016-05-16] MEDS: SITAGLIPTIN PHOSPHATE 25 MG TABLET PO SCH (08:03)
[2016-05-16] MEDS: HYDROGEN PEROXIDE 480 ML BOTTLE TP SCH ×2 (08:04→20:53)
[2016-05-16] MEDS: ZINC OXIDE 56.7 GM TUBE TP SCH ×2 (08:05→20:53)
[2016-05-16] MEDS: GUAIFENESIN/D-METHORPHAN HB 5 ML UDC PO PRN ×2 (08:56→21:58)
[2016-05-16] MEDS: BUDESONIDE RESPULE INH 0.5 MG/2 ML AMPUL.NEB IH SCH ×2 (09:02→20:22)
[2016-05-16] MEDS ORDERED: IV NS 0.9% 250 ML IV ONE (11:52)
[2016-05-16] MEDS ORDERED: IV SET PRIMARY PUMP SET 1 EA INFUS.SET MC ONE (11:52)
--- NOTE | 2016-05-16 15:51 | NUR ---
Seen and examined by Radha Petty NP no new order given.
[2016-05-16] MEDS: diphenhydrAMINE HCL ELIX 25 MG/10 ML UDC PO PRN ×2 (16:50→23:38)
[2016-05-16 20:05] VITALS: BP 144/87
[2016-05-16] MEDS: TEMAZEPAM 15 MG CAPSULE PO SCH (21:56)
[2016-05-16] MEDS: MONTELUKAST SODIUM (10MG) 10 MG TABLET PO SCH (21:56)
[2016-05-16] MEDS: INSULIN DETEMIR 100 UNIT/ML CARTRIDGE SQ SCH (21:57)
[2016-05-16] MEDS: TRAMADOL HCL 50 MG TABLET PO PRN (21:59)
[2016-05-17] MEDS: ALBUTEROL FS 2.5 MG/3 ML VIAL.NEB NEB SCH ×4 (01:22→19:43)
[2016-05-17] MEDS: IPRATROPIUM NEB FS 0.5 MG/2.5 ML AMPUL.NEB IH SCH ×4 (01:22→19:43)
[2016-05-17] MEDS: PANTOPRAZOLE 40 MG TABLET.DR PO SCH (06:15)
[2016-05-17] MEDS: BLOOD SUGAR DIAGNOSTIC 1 EACH STRIP VI SCH ×4 (06:54→21:50)
[2016-05-17] MEDS: INSULIN LISPRO/ASPART 100 UNIT/ML CARTRIDGE SQ PRN ×3 (06:55→21:51)
[2016-05-17] MEDS: diphenhydrAMINE HCL ELIX 25 MG/10 ML UDC PO PRN ×2 (07:07→23:41)
[2016-05-17 07:53] VITALS: BP 143/94
[2016-05-17] MEDS: BUDESONIDE RESPULE INH 0.5 MG/2 ML AMPUL.NEB IH SCH ×2 (08:24→19:43)
[2016-05-17] MEDS: DOCUSATE SODIUM 100 MG CAPSULE PO SCH (09:34)
[2016-05-17] MEDS: SITAGLIPTIN PHOSPHATE 25 MG TABLET PO SCH (09:34)
[2016-05-17] MEDS: GABAPENTIN 300 MG CAPSULE PO SCH ×3 (09:34→17:03)
[2016-05-17] MEDS: VIT B CMPLX 3/FA/VIT C/BIOTIN 1 TAB TABLET PO SCH (09:34)
[2016-05-17] MEDS: ASCORBIC ACID 500 MG TABLET PO SCH (09:34)
[2016-05-17] MEDS: PROSOURCE / PROSTAT (PYXIS) 30 ML UDC PO SCH ×3 (09:34→17:03)
[2016-05-17] MEDS: POLYVINYL ALCOHOL 15 ML BOTTLE EACHEYE SCH ×4 (09:34→21:48)
[2016-05-17] MEDS: ZINC OXIDE 56.7 GM TUBE TP SCH ×2 (09:37→21:49)
[2016-05-17] MEDS: HYDROGEN PEROXIDE 480 ML BOTTLE TP SCH ×2 (09:37→21:49)
[2016-05-17] MEDS: HEPARIN SODIUM, PORCINE 5000 UNITS/1 ML VIAL SQ SCH ×2 (09:37→21:49)
[2016-05-17] MEDS: MINERAL OIL/PETROL OINT 396 GM JAR TP SCH ×2 (09:37→21:49)
[2016-05-17] MEDS: BISACODYL SUPP (10 MG) 10 MG/SUPP.RECT SUPP.RECT RC PRN (12:56)
[2016-05-17 19:45] VITALS: BP 148/100
[2016-05-17] MEDS: TEMAZEPAM 15 MG CAPSULE PO SCH (21:50)
[2016-05-17] MEDS: INSULIN DETEMIR 100 UNIT/ML CARTRIDGE SQ SCH (21:50)
[2016-05-17] MEDS: MONTELUKAST SODIUM (10MG) 10 MG TABLET PO SCH (21:50)
[2016-05-17] MEDS: GUAIFENESIN/D-METHORPHAN HB 5 ML UDC PO PRN (21:52)
[2016-05-17] MEDS: TRAMADOL HCL 50 MG TABLET PO PRN (23:41)
[2016-05-18] MEDS: ALBUTEROL FS 2.5 MG/3 ML VIAL.NEB NEB SCH ×4 (01:46→19:51)
[2016-05-18] MEDS: IPRATROPIUM NEB FS 0.5 MG/2.5 ML AMPUL.NEB IH SCH ×4 (01:46→19:51)
[2016-05-18] MEDS: GUAIFENESIN/D-METHORPHAN HB 5 ML UDC PO PRN ×3 (03:04→17:14)
[2016-05-18] MEDS: PANTOPRAZOLE 40 MG TABLET.DR PO SCH (05:55)
[2016-05-18] MEDS: BLOOD SUGAR DIAGNOSTIC 1 EACH STRIP VI SCH ×4 (06:59→21:36)
[2016-05-18] MEDS: INSULIN LISPRO/ASPART 100 UNIT/ML CARTRIDGE SQ PRN ×3 (07:00→21:37)
[2016-05-18 07:54] VITALS: BP 142/91
[2016-05-18] MEDS: ZINC OXIDE 56.7 GM TUBE TP SCH ×2 (09:00→21:35)
[2016-05-18] MEDS: HYDROGEN PEROXIDE 480 ML BOTTLE TP SCH ×2 (09:00→21:35)
[2016-05-18] MEDS: BUDESONIDE RESPULE INH 0.5 MG/2 ML AMPUL.NEB IH SCH ×2 (09:08→20:44)
[2016-05-18] MEDS: GABAPENTIN 300 MG CAPSULE PO SCH ×3 (09:27→16:46)
[2016-05-18] MEDS: ASCORBIC ACID 500 MG TABLET PO SCH (09:27)
[2016-05-18] MEDS: PROSOURCE / PROSTAT (PYXIS) 30 ML UDC PO SCH ×3 (09:27→16:46)
[2016-05-18] MEDS: SITAGLIPTIN PHOSPHATE 25 MG TABLET PO SCH (09:27)
[2016-05-18] MEDS: VIT B CMPLX 3/FA/VIT C/BIOTIN 1 TAB TABLET PO SCH (09:27)
[2016-05-18] MEDS: DOCUSATE SODIUM 100 MG CAPSULE PO SCH (09:27)
[2016-05-18] MEDS: POLYVINYL ALCOHOL 15 ML BOTTLE EACHEYE SCH ×4 (09:27→21:34)
[2016-05-18] MEDS: MINERAL OIL/PETROL OINT 396 GM JAR TP SCH ×2 (09:28→21:35)
[2016-05-18] MEDS: diphenhydrAMINE HCL ELIX 25 MG/10 ML UDC PO PRN ×2 (09:28→17:13)
[2016-05-18] MEDS: HEPARIN SODIUM, PORCINE 5000 UNITS/1 ML VIAL SQ SCH ×2 (09:28→21:35)
[2016-05-18 20:16] VITALS: BP 151/93
[2016-05-18] MEDS: TEMAZEPAM 15 MG CAPSULE PO SCH (21:35)
[2016-05-18] MEDS: MONTELUKAST SODIUM (10MG) 10 MG TABLET PO SCH (21:35)
[2016-05-18] MEDS: INSULIN DETEMIR 100 UNIT/ML CARTRIDGE SQ SCH (21:36)
[2016-05-18] MEDS: TRAMADOL HCL 50 MG TABLET PO PRN (21:39)
[2016-05-19] MEDS: ALBUTEROL FS 2.5 MG/3 ML VIAL.NEB NEB SCH ×4 (01:22→19:45)
[2016-05-19] MEDS: IPRATROPIUM NEB FS 0.5 MG/2.5 ML AMPUL.NEB IH SCH ×4 (01:22→19:45)
[2016-05-19] MEDS: GUAIFENESIN/D-METHORPHAN HB 5 ML UDC PO PRN ×3 (06:26→18:32)
[2016-05-19] MEDS: PANTOPRAZOLE 40 MG TABLET.DR PO SCH (06:26)
[2016-05-19] MEDS: diphenhydrAMINE HCL ELIX 25 MG/10 ML UDC PO PRN ×2 (06:26→20:18)
[2016-05-19] MEDS: BLOOD SUGAR DIAGNOSTIC 1 EACH STRIP VI SCH ×4 (07:07→21:22)
[2016-05-19] MEDS: INSULIN LISPRO/ASPART 100 UNIT/ML CARTRIDGE SQ PRN ×4 (07:08→21:22)
[2016-05-19 07:53] VITALS: BP 133/85
[2016-05-19] MEDS: BUDESONIDE RESPULE INH 0.5 MG/2 ML AMPUL.NEB IH SCH ×2 (08:18→20:00)
[2016-05-19] MEDS: DOCUSATE SODIUM 100 MG CAPSULE PO SCH (09:49)
[2016-05-19] MEDS: SITAGLIPTIN PHOSPHATE 25 MG TABLET PO SCH (09:49)
[2016-05-19] MEDS: VIT B CMPLX 3/FA/VIT C/BIOTIN 1 TAB TABLET PO SCH (09:49)
[2016-05-19] MEDS: PROSOURCE / PROSTAT (PYXIS) 30 ML UDC PO SCH ×3 (09:49→16:15)
[2016-05-19] MEDS: GABAPENTIN 300 MG CAPSULE PO SCH ×3 (09:49→16:15)
[2016-05-19] MEDS: POLYVINYL ALCOHOL 15 ML BOTTLE EACHEYE SCH ×4 (09:49→20:15)
[2016-05-19] MEDS: ZINC OXIDE 56.7 GM TUBE TP SCH ×2 (09:53→20:15)
[2016-05-19] MEDS: HYDROGEN PEROXIDE 480 ML BOTTLE TP SCH ×2 (09:53→20:15)
[2016-05-19] MEDS: HEPARIN SODIUM, PORCINE 5000 UNITS/1 ML VIAL SQ SCH ×2 (09:53→20:15)
[2016-05-19] MEDS: MINERAL OIL/PETROL OINT 396 GM JAR TP SCH ×2 (09:53→20:15)
[2016-05-19] MEDS: ASCORBIC ACID 500 MG TABLET PO SCH (09:53)
[2016-05-19 19:49] VITALS: BP 143/81
[2016-05-19] MEDS: TEMAZEPAM 15 MG CAPSULE PO SCH (21:20)
[2016-05-19] MEDS: MONTELUKAST SODIUM (10MG) 10 MG TABLET PO SCH (21:20)
[2016-05-19] MEDS: INSULIN DETEMIR 100 UNIT/ML CARTRIDGE SQ SCH (21:22)
[2016-05-20] MEDS: IPRATROPIUM NEB FS 0.5 MG/2.5 ML AMPUL.NEB IH SCH ×4 (01:38→19:44)
[2016-05-20] MEDS: ALBUTEROL FS 2.5 MG/3 ML VIAL.NEB NEB SCH ×4 (01:38→19:44)
[2016-05-20] MEDS: PANTOPRAZOLE 40 MG TABLET.DR PO SCH (05:53)
[2016-05-20] MEDS: diphenhydrAMINE HCL ELIX 25 MG/10 ML UDC PO PRN ×2 (06:31→13:47)
[2016-05-20] MEDS: GUAIFENESIN/D-METHORPHAN HB 5 ML UDC PO PRN ×2 (06:31→13:47)
[2016-05-20 07:35] VITALS: BP 141/85
[2016-05-20] MEDS: BLOOD SUGAR DIAGNOSTIC 1 EACH STRIP VI SCH ×4 (07:59→21:13)
[2016-05-20] MEDS: INSULIN LISPRO/ASPART 100 UNIT/ML CARTRIDGE SQ PRN ×3 (08:01→18:02)
[2016-05-20] MEDS: SITAGLIPTIN PHOSPHATE 25 MG TABLET PO SCH (08:19)
[2016-05-20] MEDS: ASCORBIC ACID 500 MG TABLET PO SCH (08:19)
[2016-05-20] MEDS: VIT B CMPLX 3/FA/VIT C/BIOTIN 1 TAB TABLET PO SCH (08:19)
[2016-05-20] MEDS: POLYVINYL ALCOHOL 15 ML BOTTLE EACHEYE SCH ×4 (08:19→20:15)
[2016-05-20] MEDS: DOCUSATE SODIUM 100 MG CAPSULE PO SCH (08:19)
[2016-05-20] MEDS: PROSOURCE / PROSTAT (PYXIS) 30 ML UDC PO SCH ×3 (08:19→17:00)
[2016-05-20] MEDS: GABAPENTIN 300 MG CAPSULE PO SCH ×3 (08:19→17:00)
[2016-05-20] MEDS: HEPARIN SODIUM, PORCINE 5000 UNITS/1 ML VIAL SQ SCH ×2 (08:20→20:16)
[2016-05-20] MEDS: BUDESONIDE RESPULE INH 0.5 MG/2 ML AMPUL.NEB IH SCH ×2 (09:02→19:52)
[2016-05-20] MEDS: HYDROGEN PEROXIDE 480 ML BOTTLE TP SCH ×2 (11:20→20:16)
[2016-05-20] MEDS: ZINC OXIDE 56.7 GM TUBE TP SCH ×2 (11:20→20:16)
[2016-05-20] MEDS: MINERAL OIL/PETROL OINT 396 GM JAR TP SCH ×2 (11:20→20:16)
--- NOTE | 2016-05-20 14:42 | NUR ---
Pt was evaluated by MALIK Thakur. Received order for pt to be up in reclining wheelchair 3 times a week as tolerated, JENNA shah.
[2016-05-20 19:51] VITALS: BP 133/94
[2016-05-20] MEDS: TEMAZEPAM 15 MG CAPSULE PO SCH (21:12)
[2016-05-20] MEDS: MONTELUKAST SODIUM (10MG) 10 MG TABLET PO SCH (21:12)
[2016-05-20] MEDS: INSULIN DETEMIR 100 UNIT/ML CARTRIDGE SQ SCH (21:12)
[2016-05-21] MEDS: IPRATROPIUM NEB FS 0.5 MG/2.5 ML AMPUL.NEB IH SCH ×4 (01:38→20:23)
[2016-05-21] MEDS: ALBUTEROL FS 2.5 MG/3 ML VIAL.NEB NEB SCH ×4 (01:38→20:23)
[2016-05-21] MEDS: PANTOPRAZOLE 40 MG TABLET.DR PO SCH (05:48)
[2016-05-21 07:47] VITALS: BP 137/85
[2016-05-21] MEDS: BLOOD SUGAR DIAGNOSTIC 1 EACH STRIP VI SCH ×4 (08:08→21:19)
[2016-05-21] MEDS: POLYVINYL ALCOHOL 15 ML BOTTLE EACHEYE SCH ×4 (08:19→20:19)
[2016-05-21] MEDS: PROSOURCE / PROSTAT (PYXIS) 30 ML UDC PO SCH ×3 (08:19→17:16)
[2016-05-21] MEDS: SITAGLIPTIN PHOSPHATE 25 MG TABLET PO SCH (08:19)
[2016-05-21] MEDS: DOCUSATE SODIUM 100 MG CAPSULE PO SCH (08:19)
[2016-05-21] MEDS: ASCORBIC ACID 500 MG TABLET PO SCH (08:19)
[2016-05-21] MEDS: VIT B CMPLX 3/FA/VIT C/BIOTIN 1 TAB TABLET PO SCH (08:19)
[2016-05-21] MEDS: GABAPENTIN 300 MG CAPSULE PO SCH ×3 (08:19→17:16)
[2016-05-21] MEDS: ERGOCALCIFEROL (VITAMIN D 2) 50,000 UNIT CAPSULE PO SCH (08:19)
[2016-05-21] MEDS: diphenhydrAMINE HCL ELIX 25 MG/10 ML UDC PO PRN ×2 (08:20→17:48)
[2016-05-21] MEDS: GUAIFENESIN/D-METHORPHAN HB 5 ML UDC PO PRN ×2 (08:20→17:48)
[2016-05-21] MEDS: HEPARIN SODIUM, PORCINE 5000 UNITS/1 ML VIAL SQ SCH ×2 (08:20→20:20)
[2016-05-21] MEDS: INSULIN LISPRO/ASPART 100 UNIT/ML CARTRIDGE SQ PRN ×3 (08:21→21:27)
[2016-05-21] MEDS: BUDESONIDE RESPULE INH 0.5 MG/2 ML AMPUL.NEB IH SCH ×2 (09:00→20:40)
[2016-05-21] MEDS: MINERAL OIL/PETROL OINT 396 GM JAR TP SCH ×2 (09:50→20:20)
[2016-05-21] MEDS: ZINC OXIDE 56.7 GM TUBE TP SCH ×2 (09:50→20:20)
[2016-05-21] MEDS: HYDROGEN PEROXIDE 480 ML BOTTLE TP SCH ×2 (09:50→20:20)
--- NOTE | 2016-05-21 10:19 | NUR ---
Seen by Dr Gardner with no new order.
--- NOTE | 2016-05-21 12:41 | NUR ---
Nirali, FERNANDO from Renal, called and stated that resident was inquiring about applying for medicare. SW referred resident to insurance liasameer Shoemaker and informed Nirali.
[2016-05-21 20:56] VITALS: BP 126/83
[2016-05-21] MEDS: MONTELUKAST SODIUM (10MG) 10 MG TABLET PO SCH (21:18)
[2016-05-21] MEDS: TEMAZEPAM 15 MG CAPSULE PO SCH (21:18)
[2016-05-21] MEDS: INSULIN DETEMIR 100 UNIT/ML CARTRIDGE SQ SCH (21:19)
[2016-05-22] MEDS: ALBUTEROL FS 2.5 MG/3 ML VIAL.NEB NEB SCH ×4 (01:33→20:35)
[2016-05-22] MEDS: IPRATROPIUM NEB FS 0.5 MG/2.5 ML AMPUL.NEB IH SCH ×4 (01:33→20:35)
[2016-05-22] MEDS: PANTOPRAZOLE 40 MG TABLET.DR PO SCH (05:54)
[2016-05-22] MEDS: BLOOD SUGAR DIAGNOSTIC 1 EACH STRIP VI SCH ×4 (07:30→21:40)
[2016-05-22] MEDS: BUDESONIDE RESPULE INH 0.5 MG/2 ML AMPUL.NEB IH SCH ×2 (07:43→20:49)
[2016-05-22 07:53] VITALS: BP 145/88
[2016-05-22] MEDS: SITAGLIPTIN PHOSPHATE 25 MG TABLET PO SCH (08:52)
[2016-05-22] MEDS: ASCORBIC ACID 500 MG TABLET PO SCH (08:52)
[2016-05-22] MEDS: GABAPENTIN 300 MG CAPSULE PO SCH ×3 (08:52→16:33)
[2016-05-22] MEDS: POLYVINYL ALCOHOL 15 ML BOTTLE EACHEYE SCH ×4 (08:52→21:38)
[2016-05-22] MEDS: PROSOURCE / PROSTAT (PYXIS) 30 ML UDC PO SCH ×3 (08:52→16:33)
[2016-05-22] MEDS: DOCUSATE SODIUM 100 MG CAPSULE PO SCH (08:52)
[2016-05-22] MEDS: VIT B CMPLX 3/FA/VIT C/BIOTIN 1 TAB TABLET PO SCH (08:52)
[2016-05-22] MEDS: HEPARIN SODIUM, PORCINE 5000 UNITS/1 ML VIAL SQ SCH ×2 (08:53→21:38)
[2016-05-22] MEDS: MINERAL OIL/PETROL OINT 396 GM JAR TP SCH ×2 (08:58→21:39)
[2016-05-22] MEDS: HYDROGEN PEROXIDE 480 ML BOTTLE TP SCH ×2 (08:58→21:39)
[2016-05-22] MEDS: ZINC OXIDE 56.7 GM TUBE TP SCH ×2 (08:58→21:39)
--- NOTE | 2016-05-22 09:15 | NUR ---
Seen and examined by Dr Helen Prieto, tea bag machine tender no new order given.
--- NOTE | 2016-05-22 09:50 | NUR ---
SW accompanied PT Ofe to speak with resident about his feet. Ofe stated to resident that he is not allowed to stand on his feet, as his bones are fragile and can break with the increased weight. She stated to him that he can have RNA come and do exercises five times a week and put him up in the wheelchair. Ofe asked resident if he had any questions and resident stated that he did not. SW went to check on resident after PT left room and resident was emotional. Resident again stated that he did not have any questions and did not want to currently talk. SW will follow up with resident at a later time. FERNANDO also informed him that insurance liason was going to come and speak to him about applying for medicare.
[2016-05-22] MEDS: GUAIFENESIN/D-METHORPHAN HB 5 ML UDC PO PRN ×2 (11:05→19:21)
[2016-05-22] MEDS: INSULIN LISPRO/ASPART 100 UNIT/ML CARTRIDGE SQ PRN ×2 (11:24→21:40)
[2016-05-22] MEDS: BISACODYL SUPP (10 MG) 10 MG/SUPP.RECT SUPP.RECT RC PRN (13:01)
--- NOTE | 2016-05-22 17:19 | NUR ---
Notified Dr. Navarrete resident complaining of intermittent twitching/jerking movement of the BLE and R UE, V/S 144/97, 93, T 97, 98% no c/o SOB, denies any chest pain. He refuses to take Gabapentin because he thinks that it causes the jerking movements, but he wants the symptoms to stop. New order given by Dr. Navarrete for Ativan 1 mg. x1 and Chem 7. All orders noted and carried out. Resident informed of the medication/ blood draw that was ordered but he refuses the blood draw. He wants it done at the dialysis center. Resident consented to the use of Ativan, explained that it will help him relax and alleviate the symptoms he is experiencing, resident in agreement. Will notify MD of patient's refusal for the blood draw.
--- NOTE | 2016-05-22 17:50 | NUR ---
Informed Dr. Navarrete that resident refuses blood draw to be done here. He wants it taken from his HD access. According to MD to draw the lab now. Explained to resident the importance getting the specimen & knowing the result right away. He eventually agreed, specimen obtained by the lab.
[2016-05-22] MEDS ORDERED: LORAZEPAM 1 MG TABLET PO ONE (18:00)
[2016-05-22 18:03] LABS: CALCIUM, SERUM 7.4 mg/dL (8.5-10.1)
[2016-05-22 18:07] LABS: CREATININE 10.3 mg/dL (0.6-1.3)
--- NOTE | 2016-05-22 18:26 | NUR ---
Notified Dr. Navarrete of Chem 7 result Creatinine 10.3, BUN 60, K 6.0. New order given to add Phos, Magnesium and LFT's to the previous blood draw. Lab notified.
[2016-05-22 18:41] LABS: ALBUMIN 3.2 g/dL (3.4-5.0); BILIRUBIN,DIRECT 0.1 mg/dL (0.0-0.2); BILIRUBIN,TOTAL 0.7 mg/dL (0.2-1.0); MAGNESIUM 1.7 mg/dL (1.8-2.4); PHOSPHORUS 4.2 mg/dL (2.5-4.9); TOTAL PROTEIN, SERUM 7.3 g/dL (6.4-8.2)
[2016-05-22] MEDS: diphenhydrAMINE HCL ELIX 25 MG/10 ML UDC PO PRN (19:21)
[2016-05-22 19:56] VITALS: BP 148/96
[2016-05-22] MEDS: TEMAZEPAM 15 MG CAPSULE PO SCH (21:39)
[2016-05-22] MEDS: MONTELUKAST SODIUM (10MG) 10 MG TABLET PO SCH (21:39)
[2016-05-22] MEDS: INSULIN DETEMIR 100 UNIT/ML CARTRIDGE SQ SCH (21:39)
--- NOTE | 2016-05-22 22:17 | NUR ---
No episode of intermittent twitching/jerking movement of the BLE & RUE. Ativan 1mg x 1 dose, effective, no ASE noted.
[2016-05-23] MEDS: ALBUTEROL FS 2.5 MG/3 ML VIAL.NEB NEB SCH ×4 (02:25→20:41)
[2016-05-23] MEDS: IPRATROPIUM NEB FS 0.5 MG/2.5 ML AMPUL.NEB IH SCH ×4 (02:25→20:41)
[2016-05-23] MEDS: PANTOPRAZOLE 40 MG TABLET.DR PO SCH (06:29)
[2016-05-23] MEDS: BLOOD SUGAR DIAGNOSTIC 1 EACH STRIP VI SCH ×4 (06:44→22:27)
[2016-05-23] MEDS: INSULIN LISPRO/ASPART 100 UNIT/ML CARTRIDGE SQ PRN ×3 (06:45→22:28)
[2016-05-23 07:40] VITALS: BP 149/98
[2016-05-23] MEDS: PROSOURCE / PROSTAT (PYXIS) 30 ML UDC PO SCH ×3 (08:43→17:04)
[2016-05-23] MEDS: DOCUSATE SODIUM 100 MG CAPSULE PO SCH (08:43)
[2016-05-23] MEDS: VIT B CMPLX 3/FA/VIT C/BIOTIN 1 TAB TABLET PO SCH (08:43)
[2016-05-23] MEDS: POLYVINYL ALCOHOL 15 ML BOTTLE EACHEYE SCH ×4 (08:43→21:41)
[2016-05-23] MEDS: SITAGLIPTIN PHOSPHATE 25 MG TABLET PO SCH (08:43)
[2016-05-23] MEDS: ASCORBIC ACID 500 MG TABLET PO SCH (08:43)
[2016-05-23] MEDS: GABAPENTIN 300 MG CAPSULE PO SCH ×3 (08:43→17:04)
[2016-05-23] MEDS: HEPARIN SODIUM, PORCINE 5000 UNITS/1 ML VIAL SQ SCH ×2 (08:44→21:42)
[2016-05-23] MEDS: GUAIFENESIN/D-METHORPHAN HB 5 ML UDC PO PRN ×2 (08:47→17:04)
[2016-05-23] MEDS: HYDROGEN PEROXIDE 480 ML BOTTLE TP SCH ×2 (08:47→21:42)
[2016-05-23] MEDS: diphenhydrAMINE HCL ELIX 25 MG/10 ML UDC PO PRN ×2 (08:47→22:27)
[2016-05-23] MEDS: ZINC OXIDE 56.7 GM TUBE TP SCH ×2 (08:47→21:42)
[2016-05-23] MEDS: MINERAL OIL/PETROL OINT 396 GM JAR TP SCH ×2 (08:47→21:42)
[2016-05-23] MEDS: BUDESONIDE RESPULE INH 0.5 MG/2 ML AMPUL.NEB IH SCH ×2 (09:32→20:41)
--- NOTE | 2016-05-23 13:30 | NUR ---
Seen by Radha Petty NP with no new order.
[2016-05-23 20:16] VITALS: BP 132/90
[2016-05-23] MEDS: TEMAZEPAM 15 MG CAPSULE PO SCH (21:42)
[2016-05-23] MEDS: MONTELUKAST SODIUM (10MG) 10 MG TABLET PO SCH (22:26)
[2016-05-23] MEDS: INSULIN DETEMIR 100 UNIT/ML CARTRIDGE SQ SCH (22:26)
[2016-05-24] MEDS: IPRATROPIUM NEB FS 0.5 MG/2.5 ML AMPUL.NEB IH SCH ×4 (01:48→19:51)
[2016-05-24] MEDS: ALBUTEROL FS 2.5 MG/3 ML VIAL.NEB NEB SCH ×4 (01:49→19:51)
[2016-05-24] MEDS: diphenhydrAMINE HCL ELIX 25 MG/10 ML UDC PO PRN ×3 (04:56→18:47)
[2016-05-24] MEDS: PANTOPRAZOLE 40 MG TABLET.DR PO SCH (05:36)
[2016-05-24] MEDS: INSULIN LISPRO/ASPART 100 UNIT/ML CARTRIDGE SQ PRN ×3 (06:56→21:55)
[2016-05-24] MEDS: BLOOD SUGAR DIAGNOSTIC 1 EACH STRIP VI SCH ×4 (06:56→21:54)
[2016-05-24 07:50] VITALS: BP 142/87
[2016-05-24] MEDS: GABAPENTIN 300 MG CAPSULE PO SCH ×3 (08:42→17:07)
[2016-05-24] MEDS: SITAGLIPTIN PHOSPHATE 25 MG TABLET PO SCH (08:42)
[2016-05-24] MEDS: POLYVINYL ALCOHOL 15 ML BOTTLE EACHEYE SCH ×4 (08:42→21:53)
[2016-05-24] MEDS: VIT B CMPLX 3/FA/VIT C/BIOTIN 1 TAB TABLET PO SCH (08:42)
[2016-05-24] MEDS: PROSOURCE / PROSTAT (PYXIS) 30 ML UDC PO SCH ×3 (08:42→17:07)
[2016-05-24] MEDS: ASCORBIC ACID 500 MG TABLET PO SCH (08:42)
[2016-05-24] MEDS: DOCUSATE SODIUM 100 MG CAPSULE PO SCH (08:42)
[2016-05-24] MEDS: BUDESONIDE RESPULE INH 0.5 MG/2 ML AMPUL.NEB IH SCH ×2 (08:51→19:51)
[2016-05-24] MEDS: HYDROGEN PEROXIDE 480 ML BOTTLE TP SCH ×2 (08:56→21:55)
[2016-05-24] MEDS: HEPARIN SODIUM, PORCINE 5000 UNITS/1 ML VIAL SQ SCH ×2 (08:56→21:53)
[2016-05-24] MEDS: MINERAL OIL/PETROL OINT 396 GM JAR TP SCH ×2 (08:56→21:53)
[2016-05-24] MEDS: ZINC OXIDE 56.7 GM TUBE TP SCH ×2 (08:56→21:53)
[2016-05-24] MEDS: GUAIFENESIN/D-METHORPHAN HB 5 ML UDC PO PRN ×2 (09:08→18:48)
[2016-05-24] MEDS: BACLOFEN (10 MG) 10 MG TABLET PO PRN (13:43)
--- NOTE | 2016-05-24 14:30 | NUR ---
IDT meeting held, reviewed medications, treatment and labs. It was mentioned in the meeting that PT assessed resident's ability to stand and become depressed and cried after he was told that it is unsafe for him to stand. Dr. Gardner ordered psyche eval. [facility] notified Dr. Hussein. Resident made aware that psychiatrist will be in to talk to him sometime next week. Verbalized understanding.
--- NOTE | 2016-05-24 16:15 | NUR ---
Contacted Dr. Hussein and informed him that resident has an order for a psych consult, as he was told by PT that he cannot stand on his feet as there is a risk of fracturing them/breaking them and he began crying. Dr. Hussein stated that he will come and see the resident but did not specify when.
[2016-05-24 20:10] VITALS: BP 145/91
[2016-05-24] MEDS: TEMAZEPAM 15 MG CAPSULE PO SCH (21:53)
[2016-05-24] MEDS: MONTELUKAST SODIUM (10MG) 10 MG TABLET PO SCH (21:54)
[2016-05-24] MEDS: INSULIN DETEMIR 100 UNIT/ML CARTRIDGE SQ SCH (21:54)
[2016-05-25] MEDS: PANTOPRAZOLE 40 MG TABLET.DR PO SCH (05:43)
[2016-05-25] MEDS: BLOOD SUGAR DIAGNOSTIC 1 EACH STRIP VI SCH ×4 (06:41→21:07)
[2016-05-25] MEDS: INSULIN LISPRO/ASPART 100 UNIT/ML CARTRIDGE SQ PRN ×2 (06:42→17:10)
[2016-05-25 08:06] VITALS: BP 151/91
[2016-05-25] MEDS: IPRATROPIUM NEB FS 0.5 MG/2.5 ML AMPUL.NEB IH SCH ×3 (08:13→19:44)
[2016-05-25] MEDS: ALBUTEROL FS 2.5 MG/3 ML VIAL.NEB NEB SCH ×3 (08:13→19:44)
[2016-05-25] MEDS: BUDESONIDE RESPULE INH 0.5 MG/2 ML AMPUL.NEB IH SCH ×2 (08:36→20:48)
[2016-05-25] MEDS: HYDROGEN PEROXIDE 480 ML BOTTLE TP SCH ×2 (09:17→21:07)
[2016-05-25] MEDS: DOCUSATE SODIUM 100 MG CAPSULE PO SCH (09:17)
[2016-05-25] MEDS: ZINC OXIDE 56.7 GM TUBE TP SCH ×2 (09:17→21:07)
[2016-05-25] MEDS: VIT B CMPLX 3/FA/VIT C/BIOTIN 1 TAB TABLET PO SCH (09:17)
[2016-05-25] MEDS: PROSOURCE / PROSTAT (PYXIS) 30 ML UDC PO SCH ×3 (09:17→17:10)
[2016-05-25] MEDS: HEPARIN SODIUM, PORCINE 5000 UNITS/1 ML VIAL SQ SCH ×2 (09:17→21:06)
[2016-05-25] MEDS: MINERAL OIL/PETROL OINT 396 GM JAR TP SCH ×2 (09:17→21:06)
[2016-05-25] MEDS: GABAPENTIN 300 MG CAPSULE PO SCH ×3 (09:17→17:00)
[2016-05-25] MEDS: POLYVINYL ALCOHOL 15 ML BOTTLE EACHEYE SCH ×4 (09:17→21:06)
[2016-05-25] MEDS: SITAGLIPTIN PHOSPHATE 25 MG TABLET PO SCH (09:17)
[2016-05-25] MEDS: ASCORBIC ACID 500 MG TABLET PO SCH (09:17)
[2016-05-25] MEDS: diphenhydrAMINE HCL ELIX 25 MG/10 ML UDC PO PRN ×2 (09:19→16:38)
[2016-05-25] MEDS: GUAIFENESIN/D-METHORPHAN HB 5 ML UDC PO PRN ×2 (09:19→16:38)
--- NOTE | 2016-05-25 17:11 | NUR ---
Patient refused Neurontin. Explained risks and benefits but patient still refused medication. Per patient, medication made him twitch and refused medication.
[2016-05-25 20:13] VITALS: BP 140/88
[2016-05-25] MEDS: INSULIN DETEMIR 100 UNIT/ML CARTRIDGE SQ SCH (21:07)
[2016-05-25] MEDS: MONTELUKAST SODIUM (10MG) 10 MG TABLET PO SCH (21:27)
[2016-05-25] MEDS: TEMAZEPAM 15 MG CAPSULE PO SCH (22:33)
[2016-05-26] MEDS: IPRATROPIUM NEB FS 0.5 MG/2.5 ML AMPUL.NEB IH SCH ×4 (01:27→20:06)
[2016-05-26] MEDS: ALBUTEROL FS 2.5 MG/3 ML VIAL.NEB NEB SCH ×4 (01:27→20:06)
[2016-05-26] MEDS: GUAIFENESIN/D-METHORPHAN HB 5 ML UDC PO PRN ×3 (02:54→17:00)
[2016-05-26] MEDS: diphenhydrAMINE HCL ELIX 25 MG/10 ML UDC PO PRN ×2 (02:54→09:51)
[2016-05-26] MEDS: PANTOPRAZOLE 40 MG TABLET.DR PO SCH (05:50)
[2016-05-26] MEDS: BLOOD SUGAR DIAGNOSTIC 1 EACH STRIP VI SCH ×4 (06:40→21:08)
[2016-05-26] MEDS: INSULIN LISPRO/ASPART 100 UNIT/ML CARTRIDGE SQ PRN ×4 (06:42→21:09)
[2016-05-26 08:26] VITALS: BP 151/94
[2016-05-26] MEDS: GABAPENTIN 300 MG CAPSULE PO SCH ×3 (09:00→16:51)
[2016-05-26] MEDS: BUDESONIDE RESPULE INH 0.5 MG/2 ML AMPUL.NEB IH SCH ×2 (09:45→20:06)
[2016-05-26] MEDS: DOCUSATE SODIUM 100 MG CAPSULE PO SCH (09:47)
[2016-05-26] MEDS: SITAGLIPTIN PHOSPHATE 25 MG TABLET PO SCH (09:47)
[2016-05-26] MEDS: VIT B CMPLX 3/FA/VIT C/BIOTIN 1 TAB TABLET PO SCH (09:47)
[2016-05-26] MEDS: POLYVINYL ALCOHOL 15 ML BOTTLE EACHEYE SCH ×4 (09:47→20:09)
[2016-05-26] MEDS: HEPARIN SODIUM, PORCINE 5000 UNITS/1 ML VIAL SQ SCH ×2 (09:49→20:10)
[2016-05-26] MEDS: PROSOURCE / PROSTAT (PYXIS) 30 ML UDC PO SCH ×3 (09:49→16:51)
[2016-05-26] MEDS: ASCORBIC ACID 500 MG TABLET PO SCH (09:49)
[2016-05-26] MEDS: HYDROGEN PEROXIDE 480 ML BOTTLE TP SCH ×2 (09:50→20:10)
[2016-05-26] MEDS: ZINC OXIDE 56.7 GM TUBE TP SCH ×2 (09:50→20:10)
[2016-05-26] MEDS: MINERAL OIL/PETROL OINT 396 GM JAR TP SCH ×2 (09:50→20:10)
--- NOTE | 2016-05-26 17:20 | NUR ---
Resident refused his Neurontin, explained risk and benefits but he said that it cause him the muscle twitching. Endorsed to incoming shift to notify MD in AM.
[2016-05-26 19:48] VITALS: BP 138/93
[2016-05-26] MEDS: INSULIN DETEMIR 100 UNIT/ML CARTRIDGE SQ SCH (21:08)
[2016-05-26] MEDS: MONTELUKAST SODIUM (10MG) 10 MG TABLET PO SCH (21:08)
[2016-05-26] MEDS: TEMAZEPAM 15 MG CAPSULE PO SCH (21:08)
[2016-05-27] MEDS: ALBUTEROL FS 2.5 MG/3 ML VIAL.NEB NEB SCH ×4 (02:28→19:40)
[2016-05-27] MEDS: IPRATROPIUM NEB FS 0.5 MG/2.5 ML AMPUL.NEB IH SCH ×4 (02:28→19:40)
[2016-05-27] MEDS: diphenhydrAMINE HCL ELIX 25 MG/10 ML UDC PO PRN ×2 (02:40→12:23)
[2016-05-27] MEDS: PANTOPRAZOLE 40 MG TABLET.DR PO SCH (05:54)
[2016-05-27] MEDS: GUAIFENESIN/D-METHORPHAN HB 5 ML UDC PO PRN ×2 (06:10→12:23)
[2016-05-27] MEDS: BLOOD SUGAR DIAGNOSTIC 1 EACH STRIP VI SCH ×4 (07:30→21:15)
[2016-05-27 07:45] VITALS: BP 167/116
[2016-05-27] MEDS: PROSOURCE / PROSTAT (PYXIS) 30 ML UDC PO SCH ×3 (09:14→17:23)
[2016-05-27] MEDS: ASCORBIC ACID 500 MG TABLET PO SCH (09:14)
[2016-05-27] MEDS: SITAGLIPTIN PHOSPHATE 25 MG TABLET PO SCH (09:14)
[2016-05-27] MEDS: BUDESONIDE RESPULE INH 0.5 MG/2 ML AMPUL.NEB IH SCH ×2 (09:14→21:00)
[2016-05-27] MEDS: GABAPENTIN 300 MG CAPSULE PO SCH (09:14)
[2016-05-27] MEDS: VIT B CMPLX 3/FA/VIT C/BIOTIN 1 TAB TABLET PO SCH (09:14)
[2016-05-27] MEDS: DOCUSATE SODIUM 100 MG CAPSULE PO SCH (09:14)
[2016-05-27] MEDS: POLYVINYL ALCOHOL 15 ML BOTTLE EACHEYE SCH ×4 (09:14→21:07)
[2016-05-27] MEDS: HEPARIN SODIUM, PORCINE 5000 UNITS/1 ML VIAL SQ SCH ×2 (09:15→21:07)
[2016-05-27] MEDS: INSULIN LISPRO/ASPART 100 UNIT/ML CARTRIDGE SQ PRN ×2 (09:16→17:29)
--- NOTE | 2016-05-27 10:33 | NUR ---
Notified Dr. Prieto that pt has been refusing Neurontin, pt thinks it is causing his muscles to twitch. Dr. Prieto said it does not cause muscles to twitch, but she ordered to DC Neurontin since pt is refusing it. Notified pt.
[2016-05-27] MEDS: ZINC OXIDE 56.7 GM TUBE TP SCH ×2 (11:28→21:07)
[2016-05-27] MEDS: HYDROGEN PEROXIDE 480 ML BOTTLE TP SCH ×2 (11:28→21:07)
[2016-05-27] MEDS: MINERAL OIL/PETROL OINT 396 GM JAR TP SCH ×2 (11:28→21:07)
[2016-05-27] MEDS: BISACODYL SUPP (10 MG) 10 MG/SUPP.RECT SUPP.RECT RC PRN (12:23)
[2016-05-27] MEDS: TRAMADOL HCL 50 MG TABLET PO PRN (15:50)
[2016-05-27] MEDS: NAPROXEN 500 MG TABLET PO PRN (17:23)
--- NOTE | 2016-05-27 19:30 | NUR ---
RN NOTES Seen and examined by Dr. Hussein and discussed about how he has been feeling lately. Pt expressed feeling sad most of the time, mainly due to his current condition. Dr. Hussein discussed to use of Zoloft and risks and benefits. Pt agreed to take this medication. Received new orders noted and carried out.
[2016-05-27 19:46] VITALS: BP 145/100
[2016-05-27] MEDS: MONTELUKAST SODIUM (10MG) 10 MG TABLET PO SCH (21:07)
[2016-05-27] MEDS: TEMAZEPAM 15 MG CAPSULE PO SCH (21:07)
[2016-05-27] MEDS: INSULIN DETEMIR 100 UNIT/ML CARTRIDGE SQ SCH (21:15)
[2016-05-28] MEDS: ALBUTEROL FS 2.5 MG/3 ML VIAL.NEB NEB SCH ×4 (01:39→19:30)
[2016-05-28] MEDS: IPRATROPIUM NEB FS 0.5 MG/2.5 ML AMPUL.NEB IH SCH ×4 (01:39→19:30)
[2016-05-28] MEDS: diphenhydrAMINE HCL ELIX 25 MG/10 ML UDC PO PRN ×3 (02:08→22:25)
[2016-05-28] MEDS: GUAIFENESIN/D-METHORPHAN HB 5 ML UDC PO PRN ×2 (02:08→17:04)
[2016-05-28] MEDS: PANTOPRAZOLE 40 MG TABLET.DR PO SCH (06:15)
[2016-05-28] MEDS: BLOOD SUGAR DIAGNOSTIC 1 EACH STRIP VI SCH ×4 (06:33→21:19)
[2016-05-28 07:53] VITALS: BP 140/106
[2016-05-28] MEDS: BUDESONIDE RESPULE INH 0.5 MG/2 ML AMPUL.NEB IH SCH ×2 (08:10→21:06)
[2016-05-28] MEDS: POLYVINYL ALCOHOL 15 ML BOTTLE EACHEYE SCH ×4 (08:45→20:41)
[2016-05-28] MEDS: DOCUSATE SODIUM 100 MG CAPSULE PO SCH (08:45)
[2016-05-28] MEDS: VIT B CMPLX 3/FA/VIT C/BIOTIN 1 TAB TABLET PO SCH (08:45)
[2016-05-28] MEDS: ASCORBIC ACID 500 MG TABLET PO SCH (08:45)
[2016-05-28] MEDS: PROSOURCE / PROSTAT (PYXIS) 30 ML UDC PO SCH ×3 (08:45→17:04)
[2016-05-28] MEDS: SITAGLIPTIN PHOSPHATE 25 MG TABLET PO SCH (08:45)
[2016-05-28] MEDS: ERGOCALCIFEROL (VITAMIN D 2) 50,000 UNIT CAPSULE PO SCH (08:45)
[2016-05-28] MEDS: HEPARIN SODIUM, PORCINE 5000 UNITS/1 ML VIAL SQ SCH ×2 (08:52→20:33)
[2016-05-28] MEDS: ZINC OXIDE 56.7 GM TUBE TP SCH ×2 (09:20→20:34)
[2016-05-28] MEDS: MINERAL OIL/PETROL OINT 396 GM JAR TP SCH ×2 (09:20→20:33)
[2016-05-28] MEDS: HYDROGEN PEROXIDE 480 ML BOTTLE TP SCH ×2 (09:20→20:34)
[2016-05-28] MEDS: SERTRALINE HCL 25 MG TABLET PO SCH (12:00)
[2016-05-28] MEDS: NAPROXEN 500 MG TABLET PO PRN (17:04)
[2016-05-28] MEDS: INSULIN LISPRO/ASPART 100 UNIT/ML CARTRIDGE SQ PRN ×2 (17:27→22:19)
[2016-05-28 19:48] VITALS: BP 138/90
--- NOTE | 2016-05-28 21:00 | NUR ---
RN NOTES Received order from Dr. Navarrete to continue Heparin 5,000 units SQ q12hrs for DVT prophylaxis, noted and carried out.
[2016-05-28] MEDS: TEMAZEPAM 15 MG CAPSULE PO SCH (21:17)
[2016-05-28] MEDS: MONTELUKAST SODIUM (10MG) 10 MG TABLET PO SCH (21:17)
[2016-05-28] MEDS: INSULIN DETEMIR 100 UNIT/ML CARTRIDGE SQ SCH (21:19)
[2016-05-29] MEDS: GUAIFENESIN/D-METHORPHAN HB 5 ML UDC PO PRN ×3 (00:30→17:57)
[2016-05-29] MEDS: ALBUTEROL FS 2.5 MG/3 ML VIAL.NEB NEB SCH ×4 (01:30→20:18)
[2016-05-29] MEDS: IPRATROPIUM NEB FS 0.5 MG/2.5 ML AMPUL.NEB IH SCH ×4 (01:30→20:18)
[2016-05-29] MEDS: PANTOPRAZOLE 40 MG TABLET.DR PO SCH (05:54)
[2016-05-29] MEDS: diphenhydrAMINE HCL ELIX 25 MG/10 ML UDC PO PRN ×2 (06:18→17:57)
[2016-05-29] MEDS: BLOOD SUGAR DIAGNOSTIC 1 EACH STRIP VI SCH ×4 (07:30→21:14)
[2016-05-29 08:00] VITALS: BP 154/90
[2016-05-29] MEDS: BUDESONIDE RESPULE INH 0.5 MG/2 ML AMPUL.NEB IH SCH ×2 (08:48→20:29)
[2016-05-29] MEDS: POLYVINYL ALCOHOL 15 ML BOTTLE EACHEYE SCH ×4 (09:00→21:12)
[2016-05-29] MEDS: ZINC OXIDE 56.7 GM TUBE TP SCH ×2 (09:00→21:13)
[2016-05-29] MEDS: PROSOURCE / PROSTAT (PYXIS) 30 ML UDC PO SCH ×3 (09:00→17:01)
[2016-05-29] MEDS: DOCUSATE SODIUM 100 MG CAPSULE PO SCH (09:00)
[2016-05-29] MEDS: HEPARIN SODIUM, PORCINE 5000 UNITS/1 ML VIAL SQ SCH ×2 (09:00→21:12)
[2016-05-29] MEDS: MINERAL OIL/PETROL OINT 396 GM JAR TP SCH ×2 (09:00→21:12)
[2016-05-29] MEDS: VIT B CMPLX 3/FA/VIT C/BIOTIN 1 TAB TABLET PO SCH (09:00)
[2016-05-29] MEDS: HYDROGEN PEROXIDE 480 ML BOTTLE TP SCH ×2 (09:00→21:12)
[2016-05-29] MEDS: ASCORBIC ACID 500 MG TABLET PO SCH (09:00)
[2016-05-29] MEDS: SITAGLIPTIN PHOSPHATE 25 MG TABLET PO SCH (09:00)
[2016-05-29] MEDS: SERTRALINE HCL 25 MG TABLET PO SCH (09:00)
[2016-05-29] MEDS: INSULIN LISPRO/ASPART 100 UNIT/ML CARTRIDGE SQ PRN ×2 (11:57→17:00)
--- NOTE | 2016-05-29 17:30 | NUR ---
Seen by Radha Petty NP with no new order.
[2016-05-29] MEDS: NAPROXEN 500 MG TABLET PO PRN (17:57)
[2016-05-29 19:36] VITALS: BP 147/89
[2016-05-29] MEDS: TEMAZEPAM 15 MG CAPSULE PO SCH (21:13)
[2016-05-29] MEDS: INSULIN DETEMIR 100 UNIT/ML CARTRIDGE SQ SCH (21:13)
[2016-05-29] MEDS: MONTELUKAST SODIUM (10MG) 10 MG TABLET PO SCH (21:13)
[2016-05-30] MEDS: GUAIFENESIN/D-METHORPHAN HB 5 ML UDC PO PRN ×2 (00:53→08:05)
[2016-05-30] MEDS: diphenhydrAMINE HCL ELIX 25 MG/10 ML UDC PO PRN ×3 (00:53→14:13)
[2016-05-30] MEDS: IPRATROPIUM NEB FS 0.5 MG/2.5 ML AMPUL.NEB IH SCH ×4 (01:26→19:29)
[2016-05-30] MEDS: ALBUTEROL FS 2.5 MG/3 ML VIAL.NEB NEB SCH ×4 (01:26→19:29)
[2016-05-30] MEDS: PANTOPRAZOLE 40 MG TABLET.DR PO SCH (05:29)
[2016-05-30] MEDS: BLOOD SUGAR DIAGNOSTIC 1 EACH STRIP VI SCH ×4 (06:41→21:15)
[2016-05-30] MEDS: INSULIN LISPRO/ASPART 100 UNIT/ML CARTRIDGE SQ PRN ×2 (06:41→21:16)
[2016-05-30 07:28] VITALS: BP 149/97
[2016-05-30] MEDS: ASCORBIC ACID 500 MG TABLET PO SCH (08:04)
[2016-05-30] MEDS: PROSOURCE / PROSTAT (PYXIS) 30 ML UDC PO SCH ×3 (08:04→17:05)
[2016-05-30] MEDS: SERTRALINE HCL 25 MG TABLET PO SCH (08:04)
[2016-05-30] MEDS: VIT B CMPLX 3/FA/VIT C/BIOTIN 1 TAB TABLET PO SCH (08:04)
[2016-05-30] MEDS: DOCUSATE SODIUM 100 MG CAPSULE PO SCH (08:04)
[2016-05-30] MEDS: POLYVINYL ALCOHOL 15 ML BOTTLE EACHEYE SCH ×4 (08:04→20:54)
[2016-05-30] MEDS: HYDROGEN PEROXIDE 480 ML BOTTLE TP SCH ×2 (08:05→20:55)
[2016-05-30] MEDS: ZINC OXIDE 56.7 GM TUBE TP SCH ×2 (08:05→20:55)
[2016-05-30] MEDS: HEPARIN SODIUM, PORCINE 5000 UNITS/1 ML VIAL SQ SCH ×2 (08:05→20:55)
[2016-05-30] MEDS: MINERAL OIL/PETROL OINT 396 GM JAR TP SCH ×2 (08:05→20:55)
[2016-05-30] MEDS: SITAGLIPTIN PHOSPHATE 25 MG TABLET PO SCH (09:00)
[2016-05-30] MEDS: BUDESONIDE RESPULE INH 0.5 MG/2 ML AMPUL.NEB IH SCH ×2 (09:41→20:01)
[2016-05-30] MEDS: NAPROXEN 500 MG TABLET PO PRN (14:13)
[2016-05-30 20:31] VITALS: BP 137/91
[2016-05-30] MEDS: BACLOFEN (10 MG) 10 MG TABLET PO PRN (20:57)
[2016-05-30] MEDS: INSULIN DETEMIR 100 UNIT/ML CARTRIDGE SQ SCH (21:15)
[2016-05-30] MEDS: TEMAZEPAM 15 MG CAPSULE PO SCH (21:15)
[2016-05-30] MEDS: MONTELUKAST SODIUM (10MG) 10 MG TABLET PO SCH (21:15)
[2016-05-31] MEDS: IPRATROPIUM NEB FS 0.5 MG/2.5 ML AMPUL.NEB IH SCH ×4 (01:29→19:28)
[2016-05-31] MEDS: ALBUTEROL FS 2.5 MG/3 ML VIAL.NEB NEB SCH ×4 (01:29→19:28)
[2016-05-31] MEDS: PANTOPRAZOLE 40 MG TABLET.DR PO SCH (05:07)
[2016-05-31] MEDS: BLOOD SUGAR DIAGNOSTIC 1 EACH STRIP VI SCH ×4 (06:45→21:12)
[2016-05-31] MEDS: INSULIN LISPRO/ASPART 100 UNIT/ML CARTRIDGE SQ PRN ×3 (06:46→21:14)
[2016-05-31] MEDS: BUDESONIDE RESPULE INH 0.5 MG/2 ML AMPUL.NEB IH SCH ×2 (08:07→19:29)
[2016-05-31 08:36] VITALS: BP 152/93
[2016-05-31] MEDS: ZINC OXIDE 56.7 GM TUBE TP SCH ×2 (09:00→20:56)
[2016-05-31] MEDS: MINERAL OIL/PETROL OINT 396 GM JAR TP SCH ×2 (09:00→20:56)
[2016-05-31] MEDS: ASCORBIC ACID 500 MG TABLET PO SCH (09:00)
[2016-05-31] MEDS: SERTRALINE HCL 25 MG TABLET PO SCH (09:00)
[2016-05-31] MEDS: HYDROGEN PEROXIDE 480 ML BOTTLE TP SCH ×2 (09:00→20:56)
[2016-05-31] MEDS: POLYVINYL ALCOHOL 15 ML BOTTLE EACHEYE SCH ×4 (09:00→20:54)
[2016-05-31] MEDS: DOCUSATE SODIUM 100 MG CAPSULE PO SCH (09:00)
[2016-05-31] MEDS: HEPARIN SODIUM, PORCINE 5000 UNITS/1 ML VIAL SQ SCH ×2 (09:00→20:54)
[2016-05-31] MEDS: PROSOURCE / PROSTAT (PYXIS) 30 ML UDC PO SCH ×3 (09:00→17:10)
[2016-05-31] MEDS: VIT B CMPLX 3/FA/VIT C/BIOTIN 1 TAB TABLET PO SCH (09:00)
[2016-05-31] MEDS: SITAGLIPTIN PHOSPHATE 25 MG TABLET PO SCH (09:00)
[2016-05-31] MEDS: diphenhydrAMINE HCL ELIX 25 MG/10 ML UDC PO PRN (11:45)
[2016-05-31] MEDS: GUAIFENESIN/D-METHORPHAN HB 5 ML UDC PO PRN (11:45)
[2016-05-31] MEDS: BISACODYL SUPP (10 MG) 10 MG/SUPP.RECT SUPP.RECT RC PRN (16:04)
[2016-05-31 20:35] VITALS: BP 148/97
[2016-05-31] MEDS: MONTELUKAST SODIUM (10MG) 10 MG TABLET PO SCH (21:12)
[2016-05-31] MEDS: TEMAZEPAM 15 MG CAPSULE PO SCH (21:12)
[2016-05-31] MEDS: INSULIN DETEMIR 100 UNIT/ML CARTRIDGE SQ SCH (21:13)
[2016-06-01] MEDS: ALBUTEROL FS 2.5 MG/3 ML VIAL.NEB NEB SCH ×4 (01:56→19:46)
[2016-06-01] MEDS: IPRATROPIUM NEB FS 0.5 MG/2.5 ML AMPUL.NEB IH SCH ×4 (01:56→19:46)
[2016-06-01] MEDS: PANTOPRAZOLE 40 MG TABLET.DR PO SCH (06:09)
[2016-06-01] MEDS: BLOOD SUGAR DIAGNOSTIC 1 EACH STRIP VI SCH ×4 (06:43→21:13)
[2016-06-01 07:51] VITALS: BP 166/99
[2016-06-01] MEDS: ASCORBIC ACID 500 MG TABLET PO SCH (08:09)
[2016-06-01] MEDS: DOCUSATE SODIUM 100 MG CAPSULE PO SCH (08:09)
[2016-06-01] MEDS: HEPARIN SODIUM, PORCINE 5000 UNITS/1 ML VIAL SQ SCH ×2 (08:09→20:40)
[2016-06-01] MEDS: VIT B CMPLX 3/FA/VIT C/BIOTIN 1 TAB TABLET PO SCH (08:09)
[2016-06-01] MEDS: MINERAL OIL/PETROL OINT 396 GM JAR TP SCH ×2 (08:09→20:40)
[2016-06-01] MEDS: PROSOURCE / PROSTAT (PYXIS) 30 ML UDC PO SCH ×3 (08:09→16:52)
[2016-06-01] MEDS: SERTRALINE HCL 25 MG TABLET PO SCH (08:09)
[2016-06-01] MEDS: SITAGLIPTIN PHOSPHATE 25 MG TABLET PO SCH (08:09)
[2016-06-01] MEDS: POLYVINYL ALCOHOL 15 ML BOTTLE EACHEYE SCH ×4 (08:09→20:39)
[2016-06-01] MEDS: ZINC OXIDE 56.7 GM TUBE TP SCH ×2 (08:10→20:40)
[2016-06-01] MEDS: diphenhydrAMINE HCL ELIX 25 MG/10 ML UDC PO PRN ×2 (08:10→16:52)
[2016-06-01] MEDS: HYDROGEN PEROXIDE 480 ML BOTTLE TP SCH ×2 (08:10→20:40)
[2016-06-01] MEDS: GUAIFENESIN/D-METHORPHAN HB 5 ML UDC PO PRN ×3 (08:10→20:46)
[2016-06-01] MEDS: BUDESONIDE RESPULE INH 0.5 MG/2 ML AMPUL.NEB IH SCH ×2 (09:23→21:52)
[2016-06-01] MEDS: ONDANSETRON 4 MG TAB.RAPDIS PO PRN (17:18)
[2016-06-01 20:07] VITALS: BP 135/71
[2016-06-01] MEDS: MONTELUKAST SODIUM (10MG) 10 MG TABLET PO SCH (21:10)
[2016-06-01] MEDS: TEMAZEPAM 15 MG CAPSULE PO SCH (21:11)
[2016-06-01] MEDS: INSULIN DETEMIR 100 UNIT/ML CARTRIDGE SQ SCH (21:12)
[2016-06-02] MEDS: ALBUTEROL FS 2.5 MG/3 ML VIAL.NEB NEB SCH ×4 (01:53→19:40)
[2016-06-02] MEDS: IPRATROPIUM NEB FS 0.5 MG/2.5 ML AMPUL.NEB IH SCH ×4 (01:53→19:40)
[2016-06-02] MEDS: INSULIN LISPRO/ASPART 100 UNIT/ML CARTRIDGE SQ PRN ×3 (06:41→21:36)
[2016-06-02] MEDS: BLOOD SUGAR DIAGNOSTIC 1 EACH STRIP VI SCH ×4 (06:41→21:36)
[2016-06-02] MEDS: PANTOPRAZOLE 40 MG TABLET.DR PO SCH (06:41)
[2016-06-02] MEDS: GUAIFENESIN/D-METHORPHAN HB 5 ML UDC PO PRN ×2 (08:13→20:26)
[2016-06-02] MEDS: diphenhydrAMINE HCL ELIX 25 MG/10 ML UDC PO PRN ×2 (08:13→20:26)
[2016-06-02 08:22] VITALS: BP 117/58
[2016-06-02] MEDS: BUDESONIDE RESPULE INH 0.5 MG/2 ML AMPUL.NEB IH SCH ×2 (08:34→19:40)
[2016-06-02] MEDS: SERTRALINE HCL 25 MG TABLET PO SCH (09:41)
[2016-06-02] MEDS: DOCUSATE SODIUM 100 MG CAPSULE PO SCH (09:41)
[2016-06-02] MEDS: POLYVINYL ALCOHOL 15 ML BOTTLE EACHEYE SCH ×4 (09:41→21:02)
[2016-06-02] MEDS: SITAGLIPTIN PHOSPHATE 25 MG TABLET PO SCH (09:41)
[2016-06-02] MEDS: ASCORBIC ACID 500 MG TABLET PO SCH (09:41)
[2016-06-02] MEDS: PROSOURCE / PROSTAT (PYXIS) 30 ML UDC PO SCH ×3 (09:41→17:08)
[2016-06-02] MEDS: VIT B CMPLX 3/FA/VIT C/BIOTIN 1 TAB TABLET PO SCH (09:41)
[2016-06-02] MEDS: MINERAL OIL/PETROL OINT 396 GM JAR TP SCH ×2 (09:42→21:03)
[2016-06-02] MEDS: HEPARIN SODIUM, PORCINE 5000 UNITS/1 ML VIAL SQ SCH ×2 (09:42→21:03)
[2016-06-02] MEDS: HYDROGEN PEROXIDE 480 ML BOTTLE TP SCH ×2 (09:42→21:03)
[2016-06-02] MEDS: ZINC OXIDE 56.7 GM TUBE TP SCH ×2 (09:42→21:03)
[2016-06-02 19:45] VITALS: BP 138/87
[2016-06-02] MEDS: MONTELUKAST SODIUM (10MG) 10 MG TABLET PO SCH (21:03)
[2016-06-02] MEDS: TEMAZEPAM 15 MG CAPSULE PO SCH (21:03)
[2016-06-02] MEDS: INSULIN DETEMIR 100 UNIT/ML CARTRIDGE SQ SCH (21:35)
[2016-06-03] MEDS: IPRATROPIUM NEB FS 0.5 MG/2.5 ML AMPUL.NEB IH SCH ×4 (02:20→20:19)
[2016-06-03] MEDS: ALBUTEROL FS 2.5 MG/3 ML VIAL.NEB NEB SCH ×4 (02:20→20:19)
[2016-06-03] MEDS: diphenhydrAMINE HCL ELIX 25 MG/10 ML UDC PO PRN (06:36)
[2016-06-03] MEDS: PANTOPRAZOLE 40 MG TABLET.DR PO SCH (06:36)
[2016-06-03] MEDS: BLOOD SUGAR DIAGNOSTIC 1 EACH STRIP VI SCH ×4 (06:36→21:16)
[2016-06-03] MEDS: GUAIFENESIN/D-METHORPHAN HB 5 ML UDC PO PRN (06:36)
[2016-06-03 07:54] VITALS: BP 140/57
[2016-06-03] MEDS: HYDROGEN PEROXIDE 480 ML BOTTLE TP SCH ×2 (09:00→21:15)
[2016-06-03] MEDS: MINERAL OIL/PETROL OINT 396 GM JAR TP SCH ×2 (09:00→21:15)
[2016-06-03] MEDS: ZINC OXIDE 56.7 GM TUBE TP SCH ×2 (09:00→21:15)
[2016-06-03] MEDS: BUDESONIDE RESPULE INH 0.5 MG/2 ML AMPUL.NEB IH SCH ×2 (09:10→21:00)
[2016-06-03] MEDS: PROSOURCE / PROSTAT (PYXIS) 30 ML UDC PO SCH ×3 (10:28→17:09)
[2016-06-03] MEDS: HEPARIN SODIUM, PORCINE 5000 UNITS/1 ML VIAL SQ SCH ×2 (10:28→21:15)
[2016-06-03] MEDS: VIT B CMPLX 3/FA/VIT C/BIOTIN 1 TAB TABLET PO SCH (10:28)
[2016-06-03] MEDS: ASCORBIC ACID 500 MG TABLET PO SCH (10:28)
[2016-06-03] MEDS: SERTRALINE HCL 25 MG TABLET PO SCH (10:28)
[2016-06-03] MEDS: DOCUSATE SODIUM 100 MG CAPSULE PO SCH (10:28)
[2016-06-03] MEDS: POLYVINYL ALCOHOL 15 ML BOTTLE EACHEYE SCH ×4 (10:28→21:14)
[2016-06-03] MEDS: SITAGLIPTIN PHOSPHATE 25 MG TABLET PO SCH (10:28)
[2016-06-03] MEDS: INSULIN LISPRO/ASPART 100 UNIT/ML CARTRIDGE SQ PRN (13:21)
--- NOTE | 2016-06-03 15:53 | NUR ---
blood sugar taken at 1530 noted with 45 blood sugar. orange juice given, blood sugar checked again at 1550, noted with a blood sugar of 95. awake and verbally responsive. no acute distress noted at this time.
[2016-06-03 20:04] VITALS: BP 108/72
[2016-06-03] MEDS: TEMAZEPAM 15 MG CAPSULE PO SCH (21:15)
[2016-06-03] MEDS: MONTELUKAST SODIUM (10MG) 10 MG TABLET PO SCH (21:15)
[2016-06-03] MEDS: INSULIN DETEMIR 100 UNIT/ML CARTRIDGE SQ SCH (21:16)
[2016-06-04] MEDS: ALBUTEROL FS 2.5 MG/3 ML VIAL.NEB NEB SCH ×4 (01:20→19:56)
[2016-06-04] MEDS: IPRATROPIUM NEB FS 0.5 MG/2.5 ML AMPUL.NEB IH SCH ×4 (01:20→19:56)
[2016-06-04] MEDS: PANTOPRAZOLE 40 MG TABLET.DR PO SCH (05:20)
[2016-06-04] MEDS: GUAIFENESIN/D-METHORPHAN HB 5 ML UDC PO PRN ×2 (05:21→08:34)
[2016-06-04 07:56] VITALS: BP 147/97
[2016-06-04] MEDS: BLOOD SUGAR DIAGNOSTIC 1 EACH STRIP VI SCH ×4 (08:16→21:33)
[2016-06-04] MEDS: POLYVINYL ALCOHOL 15 ML BOTTLE EACHEYE SCH ×4 (08:20→21:31)
[2016-06-04] MEDS: DOCUSATE SODIUM 100 MG CAPSULE PO SCH (08:20)
[2016-06-04] MEDS: ERGOCALCIFEROL (VITAMIN D 2) 50,000 UNIT CAPSULE PO SCH (08:20)
[2016-06-04] MEDS: SITAGLIPTIN PHOSPHATE 25 MG TABLET PO SCH (08:21)
[2016-06-04] MEDS: VIT B CMPLX 3/FA/VIT C/BIOTIN 1 TAB TABLET PO SCH (08:21)
[2016-06-04] MEDS: ASCORBIC ACID 500 MG TABLET PO SCH (08:23)
[2016-06-04] MEDS: PROSOURCE / PROSTAT (PYXIS) 30 ML UDC PO SCH ×3 (08:23→17:33)
[2016-06-04] MEDS: SERTRALINE HCL 25 MG TABLET PO SCH (08:24)
[2016-06-04] MEDS: HEPARIN SODIUM, PORCINE 5000 UNITS/1 ML VIAL SQ SCH ×2 (08:27→21:32)
[2016-06-04] MEDS: diphenhydrAMINE HCL ELIX 25 MG/10 ML UDC PO PRN (08:34)
[2016-06-04] MEDS: MINERAL OIL/PETROL OINT 396 GM JAR TP SCH ×2 (08:34→21:32)
[2016-06-04] MEDS: ZINC OXIDE 56.7 GM TUBE TP SCH ×2 (08:35→21:32)
[2016-06-04] MEDS: HYDROGEN PEROXIDE 480 ML BOTTLE TP SCH ×2 (08:35→21:32)
[2016-06-04] MEDS: BUDESONIDE RESPULE INH 0.5 MG/2 ML AMPUL.NEB IH SCH ×2 (09:15→19:56)
--- NOTE | 2016-06-04 09:30 | NUR ---
Seen by Dr Gardner with no new order.
[2016-06-04 20:11] VITALS: BP 141/70
[2016-06-04] MEDS: MONTELUKAST SODIUM (10MG) 10 MG TABLET PO SCH (21:32)
[2016-06-04] MEDS: TEMAZEPAM 15 MG CAPSULE PO SCH (21:32)
[2016-06-04] MEDS: INSULIN DETEMIR 100 UNIT/ML CARTRIDGE SQ SCH (21:33)
[2016-06-05] MEDS: IPRATROPIUM NEB FS 0.5 MG/2.5 ML AMPUL.NEB IH SCH ×4 (02:04→20:23)
[2016-06-05] MEDS: ALBUTEROL FS 2.5 MG/3 ML VIAL.NEB NEB SCH ×4 (02:05→20:23)
[2016-06-05] MEDS: PANTOPRAZOLE 40 MG TABLET.DR PO SCH (05:50)
[2016-06-05] MEDS: GUAIFENESIN/D-METHORPHAN HB 5 ML UDC PO PRN ×2 (06:28→20:09)
[2016-06-05] MEDS: BLOOD SUGAR DIAGNOSTIC 1 EACH STRIP VI SCH ×4 (07:30→21:10)
[2016-06-05 07:58] VITALS: BP 143/97
[2016-06-05] MEDS: HYDROGEN PEROXIDE 480 ML BOTTLE TP SCH ×2 (09:00→20:09)
[2016-06-05] MEDS: SITAGLIPTIN PHOSPHATE 25 MG TABLET PO SCH (09:00)
[2016-06-05] MEDS: VIT B CMPLX 3/FA/VIT C/BIOTIN 1 TAB TABLET PO SCH (09:00)
[2016-06-05] MEDS: SERTRALINE HCL 25 MG TABLET PO SCH (09:00)
[2016-06-05] MEDS: POLYVINYL ALCOHOL 15 ML BOTTLE EACHEYE SCH ×4 (09:00→20:07)
[2016-06-05] MEDS: ZINC OXIDE 56.7 GM TUBE TP SCH ×2 (09:00→20:09)
[2016-06-05] MEDS: DOCUSATE SODIUM 100 MG CAPSULE PO SCH (09:00)
[2016-06-05] MEDS: HEPARIN SODIUM, PORCINE 5000 UNITS/1 ML VIAL SQ SCH ×2 (09:00→20:08)
[2016-06-05] MEDS: MINERAL OIL/PETROL OINT 396 GM JAR TP SCH ×2 (09:00→20:08)
[2016-06-05] MEDS: ASCORBIC ACID 500 MG TABLET PO SCH (09:00)
[2016-06-05] MEDS: PROSOURCE / PROSTAT (PYXIS) 30 ML UDC PO SCH ×3 (09:00→17:03)
[2016-06-05] MEDS: BUDESONIDE RESPULE INH 0.5 MG/2 ML AMPUL.NEB IH SCH ×2 (09:26→20:35)
[2016-06-05] MEDS: INSULIN LISPRO/ASPART 100 UNIT/ML CARTRIDGE SQ PRN (11:50)
[2016-06-05] MEDS: ONDANSETRON 4 MG TAB.RAPDIS PO PRN (12:26)
[2016-06-05] MEDS: diphenhydrAMINE HCL ELIX 25 MG/10 ML UDC PO PRN (18:56)
[2016-06-05 19:42] VITALS: BP 147/91
[2016-06-05] MEDS: TEMAZEPAM 15 MG CAPSULE PO SCH (21:10)
[2016-06-05] MEDS: INSULIN DETEMIR 100 UNIT/ML CARTRIDGE SQ SCH (21:10)
[2016-06-05] MEDS: MONTELUKAST SODIUM (10MG) 10 MG TABLET PO SCH (21:10)
[2016-06-06] MEDS: ALBUTEROL FS 2.5 MG/3 ML VIAL.NEB NEB SCH ×4 (01:34→19:54)
[2016-06-06] MEDS: IPRATROPIUM NEB FS 0.5 MG/2.5 ML AMPUL.NEB IH SCH ×4 (01:34→19:54)
[2016-06-06] MEDS: PANTOPRAZOLE 40 MG TABLET.DR PO SCH (05:49)
[2016-06-06 08:03] VITALS: BP 138/81
[2016-06-06] MEDS: BUDESONIDE RESPULE INH 0.5 MG/2 ML AMPUL.NEB IH SCH ×2 (08:08→19:55)
[2016-06-06] MEDS: HYDROGEN PEROXIDE 480 ML BOTTLE TP SCH ×2 (09:00→21:00)
[2016-06-06] MEDS: ZINC OXIDE 56.7 GM TUBE TP SCH ×2 (09:00→21:00)
[2016-06-06] MEDS: SERTRALINE HCL 25 MG TABLET PO SCH (09:02)
[2016-06-06] MEDS: SITAGLIPTIN PHOSPHATE 25 MG TABLET PO SCH (09:02)
[2016-06-06] MEDS: PROSOURCE / PROSTAT (PYXIS) 30 ML UDC PO SCH ×3 (09:02→17:25)
[2016-06-06] MEDS: VIT B CMPLX 3/FA/VIT C/BIOTIN 1 TAB TABLET PO SCH (09:02)
[2016-06-06] MEDS: HEPARIN SODIUM, PORCINE 5000 UNITS/1 ML VIAL SQ SCH ×2 (09:02→21:00)
[2016-06-06] MEDS: DOCUSATE SODIUM 100 MG CAPSULE PO SCH (09:02)
[2016-06-06] MEDS: POLYVINYL ALCOHOL 15 ML BOTTLE EACHEYE SCH ×4 (09:02→21:00)
[2016-06-06] MEDS: MINERAL OIL/PETROL OINT 396 GM JAR TP SCH ×2 (09:02→21:00)
[2016-06-06] MEDS: ASCORBIC ACID 500 MG TABLET PO SCH (09:02)
[2016-06-06] MEDS: BLOOD SUGAR DIAGNOSTIC 1 EACH STRIP VI SCH ×3 (12:00→22:19)
[2016-06-06] MEDS: NAPROXEN 500 MG TABLET PO PRN (14:12)
[2016-06-06] MEDS: diphenhydrAMINE HCL ELIX 25 MG/10 ML UDC PO PRN (17:25)
[2016-06-06] MEDS: GUAIFENESIN/D-METHORPHAN HB 5 ML UDC PO PRN (17:25)
[2016-06-06 20:32] VITALS: BP 129/87
[2016-06-06] MEDS: TEMAZEPAM 15 MG CAPSULE PO SCH (22:18)
[2016-06-06] MEDS: MONTELUKAST SODIUM (10MG) 10 MG TABLET PO SCH (22:18)
[2016-06-06] MEDS: INSULIN DETEMIR 100 UNIT/ML CARTRIDGE SQ SCH (22:19)
[2016-06-07] MEDS: IPRATROPIUM NEB FS 0.5 MG/2.5 ML AMPUL.NEB IH SCH ×4 (00:39→20:10)
[2016-06-07] MEDS: ALBUTEROL FS 2.5 MG/3 ML VIAL.NEB NEB SCH ×4 (00:39→20:10)
[2016-06-07] MEDS: PANTOPRAZOLE 40 MG TABLET.DR PO SCH (05:59)
[2016-06-07] MEDS: diphenhydrAMINE HCL ELIX 25 MG/10 ML UDC PO PRN ×2 (05:59→20:21)
[2016-06-07] MEDS: GUAIFENESIN/D-METHORPHAN HB 5 ML UDC PO PRN ×2 (05:59→23:17)
[2016-06-07] MEDS: BLOOD SUGAR DIAGNOSTIC 1 EACH STRIP VI SCH ×4 (06:40→21:22)
[2016-06-07] MEDS: INSULIN LISPRO/ASPART 100 UNIT/ML CARTRIDGE SQ PRN ×2 (06:41→17:11)
[2016-06-07 07:52] VITALS: BP 155/96
[2016-06-07] MEDS: BUDESONIDE RESPULE INH 0.5 MG/2 ML AMPUL.NEB IH SCH ×2 (09:03→20:54)
[2016-06-07] MEDS: DOCUSATE SODIUM 100 MG CAPSULE PO SCH (09:19)
[2016-06-07] MEDS: PROSOURCE / PROSTAT (PYXIS) 30 ML UDC PO SCH ×3 (09:20→17:00)
[2016-06-07] MEDS: ASCORBIC ACID 500 MG TABLET PO SCH (09:20)
[2016-06-07] MEDS: SERTRALINE HCL 25 MG TABLET PO SCH (09:20)
[2016-06-07] MEDS: SITAGLIPTIN PHOSPHATE 25 MG TABLET PO SCH (09:20)
[2016-06-07] MEDS: VIT B CMPLX 3/FA/VIT C/BIOTIN 1 TAB TABLET PO SCH (09:20)
[2016-06-07] MEDS: POLYVINYL ALCOHOL 15 ML BOTTLE EACHEYE SCH ×4 (09:36→20:21)
[2016-06-07] MEDS: ZINC OXIDE 56.7 GM TUBE TP SCH ×2 (09:38→20:22)
[2016-06-07] MEDS: MINERAL OIL/PETROL OINT 396 GM JAR TP SCH ×2 (09:38→20:21)
[2016-06-07] MEDS: HEPARIN SODIUM, PORCINE 5000 UNITS/1 ML VIAL SQ SCH ×2 (09:38→20:21)
[2016-06-07] MEDS: HYDROGEN PEROXIDE 480 ML BOTTLE TP SCH ×2 (09:38→20:22)
--- NOTE | 2016-06-07 19:30 | NUR ---
PT SEEN AND EXAMINED BY DR. ESPINO NEUROLOGIST WITH NEW ORDERS FOR LABS TOMORROW AND WAKE DROWSY EEG ON FRIDAY.CHANGE DILANTIN TO 300MG Q HS. SPOKE TO SISTER AND AWARE OF ALL ORDERS. Addendum: 06/07/16 at 2143 by ABBIE MUNGUIA RN WRONG ENTRY
[2016-06-07 19:43] VITALS: BP 139/95
[2016-06-07] MEDS: BACLOFEN (10 MG) 10 MG TABLET PO PRN (20:22)
[2016-06-07] MEDS: INSULIN DETEMIR 100 UNIT/ML CARTRIDGE SQ SCH (21:22)
[2016-06-07] MEDS: MONTELUKAST SODIUM (10MG) 10 MG TABLET PO SCH (21:22)
[2016-06-07] MEDS: TEMAZEPAM 15 MG CAPSULE PO SCH (21:22)
[2016-06-08] MEDS: ALBUTEROL FS 2.5 MG/3 ML VIAL.NEB NEB SCH ×4 (01:42→19:57)
[2016-06-08] MEDS: IPRATROPIUM NEB FS 0.5 MG/2.5 ML AMPUL.NEB IH SCH ×4 (01:42→19:57)
[2016-06-08] MEDS: PANTOPRAZOLE 40 MG TABLET.DR PO SCH (05:36)
[2016-06-08] MEDS: diphenhydrAMINE HCL ELIX 25 MG/10 ML UDC PO PRN ×3 (05:36→21:23)
[2016-06-08] MEDS: BLOOD SUGAR DIAGNOSTIC 1 EACH STRIP VI SCH ×4 (06:40→21:22)
[2016-06-08] MEDS: INSULIN LISPRO/ASPART 100 UNIT/ML CARTRIDGE SQ PRN ×3 (06:40→21:23)
[2016-06-08 07:45] VITALS: BP 145/92
[2016-06-08] MEDS: BUDESONIDE RESPULE INH 0.5 MG/2 ML AMPUL.NEB IH SCH ×2 (08:37→20:37)
[2016-06-08] MEDS: MINERAL OIL/PETROL OINT 396 GM JAR TP SCH ×2 (09:06→20:40)
[2016-06-08] MEDS: PROSOURCE / PROSTAT (PYXIS) 30 ML UDC PO SCH ×3 (09:06→17:07)
[2016-06-08] MEDS: POLYVINYL ALCOHOL 15 ML BOTTLE EACHEYE SCH ×4 (09:06→20:40)
[2016-06-08] MEDS: ZINC OXIDE 56.7 GM TUBE TP SCH ×2 (09:06→20:40)
[2016-06-08] MEDS: ASCORBIC ACID 500 MG TABLET PO SCH (09:06)
[2016-06-08] MEDS: VIT B CMPLX 3/FA/VIT C/BIOTIN 1 TAB TABLET PO SCH (09:06)
[2016-06-08] MEDS: SITAGLIPTIN PHOSPHATE 25 MG TABLET PO SCH (09:06)
[2016-06-08] MEDS: SERTRALINE HCL 25 MG TABLET PO SCH (09:06)
[2016-06-08] MEDS: HYDROGEN PEROXIDE 480 ML BOTTLE TP SCH ×2 (09:06→20:40)
[2016-06-08] MEDS: HEPARIN SODIUM, PORCINE 5000 UNITS/1 ML VIAL SQ SCH ×2 (09:06→20:40)
[2016-06-08] MEDS: DOCUSATE SODIUM 100 MG CAPSULE PO SCH (09:06)
--- NOTE | 2016-06-08 12:03 | NUR ---
Spoke with Qiana from [facility] to report patient's complain of "feeling that his organs are collapsing". It was endorsed to ambulance staff regarding patient's complain when he was picked up for dialysis. According to resident's dialysis nurse, she adjusted target weight so it will not pull too much water. Qiana also mentioned a concern that resident's arrival to the center is late, his scheduled chairtime is at 1000, however after speaking with [facility] to notify them of late arrival, I was told by Gracia [facility] dispatcher that on their schedule patient's chairtime is at 1030. Advised to call [facility] directly to clarify exact time to prevent confusion.
--- NOTE | 2016-06-08 14:10 | NUR ---
RT Patient received trached on cool aerosol. trach midline and breath sounds equal.Tx. given as ordered and tolerated very well. No adverse reactions. Suctioned small amount yellow thick secretions. SpO2 100% on CA28%.
[2016-06-08] MEDS: GUAIFENESIN/D-METHORPHAN HB 5 ML UDC PO PRN (15:07)
[2016-06-08 19:50] VITALS: BP 146/89
[2016-06-08] MEDS: NAPROXEN 500 MG TABLET PO PRN (20:41)
[2016-06-08] MEDS: TEMAZEPAM 15 MG CAPSULE PO SCH (21:22)
[2016-06-08] MEDS: MONTELUKAST SODIUM (10MG) 10 MG TABLET PO SCH (21:22)
[2016-06-08] MEDS: INSULIN DETEMIR 100 UNIT/ML CARTRIDGE SQ SCH (21:22)
[2016-06-09] MEDS: ALBUTEROL FS 2.5 MG/3 ML VIAL.NEB NEB SCH ×4 (01:50→19:49)
[2016-06-09] MEDS: IPRATROPIUM NEB FS 0.5 MG/2.5 ML AMPUL.NEB IH SCH ×4 (01:50→19:49)
[2016-06-09] MEDS: PANTOPRAZOLE 40 MG TABLET.DR PO SCH (05:34)
[2016-06-09] MEDS: BLOOD SUGAR DIAGNOSTIC 1 EACH STRIP VI SCH ×4 (06:46→21:18)
[2016-06-09] MEDS: POLYVINYL ALCOHOL 15 ML BOTTLE EACHEYE SCH ×4 (08:19→20:18)
[2016-06-09] MEDS: PROSOURCE / PROSTAT (PYXIS) 30 ML UDC PO SCH ×3 (08:21→16:30)
[2016-06-09] MEDS: DOCUSATE SODIUM 100 MG CAPSULE PO SCH (08:21)
[2016-06-09] MEDS: SERTRALINE HCL 25 MG TABLET PO SCH (08:21)
[2016-06-09] MEDS: HEPARIN SODIUM, PORCINE 5000 UNITS/1 ML VIAL SQ SCH ×2 (08:21→20:18)
[2016-06-09] MEDS: ASCORBIC ACID 500 MG TABLET PO SCH (08:21)
[2016-06-09] MEDS: SITAGLIPTIN PHOSPHATE 25 MG TABLET PO SCH (08:21)
[2016-06-09] MEDS: VIT B CMPLX 3/FA/VIT C/BIOTIN 1 TAB TABLET PO SCH (08:21)
[2016-06-09] MEDS: ZINC OXIDE 56.7 GM TUBE TP SCH ×2 (08:24→20:19)
[2016-06-09] MEDS: MINERAL OIL/PETROL OINT 396 GM JAR TP SCH ×2 (08:24→20:18)
[2016-06-09] MEDS: HYDROGEN PEROXIDE 480 ML BOTTLE TP SCH ×2 (08:24→20:18)
[2016-06-09] MEDS: GUAIFENESIN/D-METHORPHAN HB 5 ML UDC PO PRN ×2 (08:25→20:15)
[2016-06-09] MEDS: BISACODYL SUPP (10 MG) 10 MG/SUPP.RECT SUPP.RECT RC PRN (08:25)
[2016-06-09] MEDS: diphenhydrAMINE HCL ELIX 25 MG/10 ML UDC PO PRN ×2 (08:25→20:15)
[2016-06-09 08:27] VITALS: BP 140/97
[2016-06-09] MEDS: BUDESONIDE RESPULE INH 0.5 MG/2 ML AMPUL.NEB IH SCH ×2 (08:46→20:49)
[2016-06-09] MEDS: INSULIN LISPRO/ASPART 100 UNIT/ML CARTRIDGE SQ PRN (11:45)
[2016-06-09] MEDS: MAG HYDROX/AL HYDROX/SIMETH 30 ML UDC PO PRN (11:47)
[2016-06-09 19:46] VITALS: BP 145/97
[2016-06-09] MEDS: NAPROXEN 500 MG TABLET PO PRN (21:17)
[2016-06-09] MEDS: MONTELUKAST SODIUM (10MG) 10 MG TABLET PO SCH (21:17)
[2016-06-09] MEDS: INSULIN DETEMIR 100 UNIT/ML CARTRIDGE SQ SCH (21:18)
[2016-06-09] MEDS: TEMAZEPAM 15 MG CAPSULE PO SCH (22:00)
[2016-06-10] MEDS: ALBUTEROL FS 2.5 MG/3 ML VIAL.NEB NEB SCH ×4 (01:25→19:30)
[2016-06-10] MEDS: IPRATROPIUM NEB FS 0.5 MG/2.5 ML AMPUL.NEB IH SCH ×4 (01:25→19:30)
[2016-06-10] MEDS: PANTOPRAZOLE 40 MG TABLET.DR PO SCH (05:54)
[2016-06-10] MEDS: diphenhydrAMINE HCL ELIX 25 MG/10 ML UDC PO PRN ×3 (06:32→16:02)
[2016-06-10] MEDS: INSULIN LISPRO/ASPART 100 UNIT/ML CARTRIDGE SQ PRN ×2 (06:43→12:06)
[2016-06-10] MEDS: BLOOD SUGAR DIAGNOSTIC 1 EACH STRIP VI SCH ×4 (06:43→21:25)
[2016-06-10 07:45] VITALS: BP 142/90
[2016-06-10] MEDS: MINERAL OIL/PETROL OINT 396 GM JAR TP SCH ×2 (09:00→21:25)
[2016-06-10] MEDS: ASCORBIC ACID 500 MG TABLET PO SCH (09:00)
[2016-06-10] MEDS: VIT B CMPLX 3/FA/VIT C/BIOTIN 1 TAB TABLET PO SCH (09:00)
[2016-06-10] MEDS: HEPARIN SODIUM, PORCINE 5000 UNITS/1 ML VIAL SQ SCH ×2 (09:00→21:24)
[2016-06-10] MEDS: SERTRALINE HCL 25 MG TABLET PO SCH (09:00)
[2016-06-10] MEDS: PROSOURCE / PROSTAT (PYXIS) 30 ML UDC PO SCH ×3 (09:00→17:14)
[2016-06-10] MEDS: POLYVINYL ALCOHOL 15 ML BOTTLE EACHEYE SCH ×4 (09:00→21:24)
[2016-06-10] MEDS: SITAGLIPTIN PHOSPHATE 25 MG TABLET PO SCH (09:00)
[2016-06-10] MEDS: HYDROGEN PEROXIDE 480 ML BOTTLE TP SCH ×2 (09:00→21:25)
[2016-06-10] MEDS: ZINC OXIDE 56.7 GM TUBE TP SCH ×2 (09:00→21:25)
[2016-06-10] MEDS: DOCUSATE SODIUM 100 MG CAPSULE PO SCH (09:00)
--- NOTE | 2016-06-10 09:04 | NUR ---
Was seen by Dr. Ladonna CARPENTER for annual checkup. Recommended a cleaning for resident and resident in agreement. Charge nurse informed that dentist will return for cleaning at a later time.
[2016-06-10] MEDS: BUDESONIDE RESPULE INH 0.5 MG/2 ML AMPUL.NEB IH SCH ×2 (09:32→21:14)
[2016-06-10] MEDS: GUAIFENESIN/D-METHORPHAN HB 5 ML UDC PO PRN ×2 (11:30→15:57)
--- NOTE | 2016-06-10 18:55 | NUR ---
Seen by JAMMER HOOKER Radha Petty. Notified her that pt was not eating well and verbalized that he has no appetite. Received order to give Novasource renal 1 carton po daily as supplement.
[2016-06-10 20:00] VITALS: BP 145/95
[2016-06-10] MEDS: MONTELUKAST SODIUM (10MG) 10 MG TABLET PO SCH (21:25)
[2016-06-10] MEDS: TEMAZEPAM 15 MG CAPSULE PO SCH (21:25)
[2016-06-10] MEDS: INSULIN DETEMIR 100 UNIT/ML CARTRIDGE SQ SCH (21:25)
[2016-06-11] MEDS: ALBUTEROL FS 2.5 MG/3 ML VIAL.NEB NEB SCH ×4 (02:42→19:30)
[2016-06-11] MEDS: IPRATROPIUM NEB FS 0.5 MG/2.5 ML AMPUL.NEB IH SCH ×4 (02:42→19:30)
[2016-06-11] MEDS: PANTOPRAZOLE 40 MG TABLET.DR PO SCH (05:58)
[2016-06-11] MEDS: BLOOD SUGAR DIAGNOSTIC 1 EACH STRIP VI SCH ×4 (07:30→21:06)
[2016-06-11 07:45] VITALS: BP 145/92
[2016-06-11] MEDS: ERGOCALCIFEROL (VITAMIN D 2) 50,000 UNIT CAPSULE PO SCH (08:53)
[2016-06-11] MEDS: SITAGLIPTIN PHOSPHATE 25 MG TABLET PO SCH (08:53)
[2016-06-11] MEDS: MINERAL OIL/PETROL OINT 396 GM JAR TP SCH ×2 (08:53→21:05)
[2016-06-11] MEDS: VIT B CMPLX 3/FA/VIT C/BIOTIN 1 TAB TABLET PO SCH (08:53)
[2016-06-11] MEDS: DOCUSATE SODIUM 100 MG CAPSULE PO SCH (08:53)
[2016-06-11] MEDS: ASCORBIC ACID 500 MG TABLET PO SCH (08:53)
[2016-06-11] MEDS: HYDROGEN PEROXIDE 480 ML BOTTLE TP SCH ×2 (08:53→21:06)
[2016-06-11] MEDS: SERTRALINE HCL 25 MG TABLET PO SCH (08:53)
[2016-06-11] MEDS: PROSOURCE / PROSTAT (PYXIS) 30 ML UDC PO SCH ×3 (08:53→16:27)
[2016-06-11] MEDS: RENAL NOVASOURCE (8OZ) 1 EA BOX PO SCH (08:53)
[2016-06-11] MEDS: ZINC OXIDE 56.7 GM TUBE TP SCH ×2 (08:54→21:06)
[2016-06-11] MEDS: POLYVINYL ALCOHOL 15 ML BOTTLE EACHEYE SCH ×4 (08:57→21:05)
[2016-06-11] MEDS: HEPARIN SODIUM, PORCINE 5000 UNITS/1 ML VIAL SQ SCH ×2 (08:58→21:05)
[2016-06-11] MEDS: BUDESONIDE RESPULE INH 0.5 MG/2 ML AMPUL.NEB IH SCH ×2 (09:35→20:44)
[2016-06-11] MEDS: diphenhydrAMINE HCL ELIX 25 MG/10 ML UDC PO PRN ×2 (10:07→16:39)
[2016-06-11] MEDS: GUAIFENESIN/D-METHORPHAN HB 5 ML UDC PO PRN ×2 (10:07→16:40)
[2016-06-11] MEDS: MAG HYDROX/AL HYDROX/SIMETH 30 ML UDC PO PRN (14:21)
[2016-06-11] MEDS: TRAMADOL HCL 50 MG TABLET PO PRN (14:22)
[2016-06-11 20:14] VITALS: BP 149/80
[2016-06-11] MEDS: TEMAZEPAM 15 MG CAPSULE PO SCH (21:06)
[2016-06-11] MEDS: INSULIN DETEMIR 100 UNIT/ML CARTRIDGE SQ SCH (21:06)
[2016-06-11] MEDS: MONTELUKAST SODIUM (10MG) 10 MG TABLET PO SCH (21:06)
[2016-06-12] MEDS: IPRATROPIUM NEB FS 0.5 MG/2.5 ML AMPUL.NEB IH SCH ×4 (01:30→20:09)
[2016-06-12] MEDS: ALBUTEROL FS 2.5 MG/3 ML VIAL.NEB NEB SCH ×4 (01:30→20:09)
[2016-06-12] MEDS: PANTOPRAZOLE 40 MG TABLET.DR PO SCH (06:00)
[2016-06-12] MEDS: BLOOD SUGAR DIAGNOSTIC 1 EACH STRIP VI SCH ×4 (07:33→21:26)
[2016-06-12] MEDS: INSULIN LISPRO/ASPART 100 UNIT/ML CARTRIDGE SQ PRN ×3 (07:34→16:43)
[2016-06-12 07:41] VITALS: BP 134/92
[2016-06-12] MEDS: DOCUSATE SODIUM 100 MG CAPSULE PO SCH (08:25)
[2016-06-12] MEDS: PROSOURCE / PROSTAT (PYXIS) 30 ML UDC PO SCH ×3 (08:25→16:42)
[2016-06-12] MEDS: POLYVINYL ALCOHOL 15 ML BOTTLE EACHEYE SCH ×4 (08:25→21:24)
[2016-06-12] MEDS: SITAGLIPTIN PHOSPHATE 25 MG TABLET PO SCH (08:25)
[2016-06-12] MEDS: ASCORBIC ACID 500 MG TABLET PO SCH (08:25)
[2016-06-12] MEDS: VIT B CMPLX 3/FA/VIT C/BIOTIN 1 TAB TABLET PO SCH (08:25)
[2016-06-12] MEDS: SERTRALINE HCL 25 MG TABLET PO SCH (08:25)
[2016-06-12] MEDS: RENAL NOVASOURCE (8OZ) 1 EA BOX PO SCH (08:25)
[2016-06-12] MEDS: HEPARIN SODIUM, PORCINE 5000 UNITS/1 ML VIAL SQ SCH ×2 (08:26→21:25)
[2016-06-12] MEDS: MINERAL OIL/PETROL OINT 396 GM JAR TP SCH ×2 (08:26→21:25)
[2016-06-12] MEDS: HYDROGEN PEROXIDE 480 ML BOTTLE TP SCH ×2 (08:26→21:25)
[2016-06-12] MEDS: ZINC OXIDE 56.7 GM TUBE TP SCH ×2 (08:26→21:25)
[2016-06-12] MEDS: BUDESONIDE RESPULE INH 0.5 MG/2 ML AMPUL.NEB IH SCH ×2 (09:33→20:09)
[2016-06-12 20:02] VITALS: BP 139/71
[2016-06-12] MEDS: TEMAZEPAM 15 MG CAPSULE PO SCH (21:25)
[2016-06-12] MEDS: MONTELUKAST SODIUM (10MG) 10 MG TABLET PO SCH (21:25)
[2016-06-12] MEDS: INSULIN DETEMIR 100 UNIT/ML CARTRIDGE SQ SCH (21:26)
[2016-06-13] MEDS: IPRATROPIUM NEB FS 0.5 MG/2.5 ML AMPUL.NEB IH SCH ×4 (02:23→19:55)
[2016-06-13] MEDS: ALBUTEROL FS 2.5 MG/3 ML VIAL.NEB NEB SCH ×4 (02:23→19:55)
[2016-06-13] MEDS: diphenhydrAMINE HCL ELIX 25 MG/10 ML UDC PO PRN ×2 (03:54→17:17)
[2016-06-13] MEDS: PANTOPRAZOLE 40 MG TABLET.DR PO SCH (05:57)
[2016-06-13] MEDS: SITAGLIPTIN PHOSPHATE 25 MG TABLET PO SCH (08:16)
[2016-06-13] MEDS: BLOOD SUGAR DIAGNOSTIC 1 EACH STRIP VI SCH ×4 (08:16→21:30)
[2016-06-13] MEDS: DOCUSATE SODIUM 100 MG CAPSULE PO SCH (08:16)
[2016-06-13] MEDS: VIT B CMPLX 3/FA/VIT C/BIOTIN 1 TAB TABLET PO SCH (08:16)
[2016-06-13] MEDS: POLYVINYL ALCOHOL 15 ML BOTTLE EACHEYE SCH ×4 (08:16→21:26)
[2016-06-13] MEDS: RENAL NOVASOURCE (8OZ) 1 EA BOX PO SCH (08:16)
[2016-06-13] MEDS: PROSOURCE / PROSTAT (PYXIS) 30 ML UDC PO SCH ×3 (08:17→17:15)
[2016-06-13] MEDS: ASCORBIC ACID 500 MG TABLET PO SCH (08:17)
[2016-06-13] MEDS: SERTRALINE HCL 25 MG TABLET PO SCH (08:17)
[2016-06-13] MEDS: HYDROGEN PEROXIDE 480 ML BOTTLE TP SCH ×2 (08:18→21:27)
[2016-06-13] MEDS: HEPARIN SODIUM, PORCINE 5000 UNITS/1 ML VIAL SQ SCH ×2 (08:18→21:27)
[2016-06-13] MEDS: MINERAL OIL/PETROL OINT 396 GM JAR TP SCH ×2 (08:18→21:27)
[2016-06-13] MEDS: ZINC OXIDE 56.7 GM TUBE TP SCH ×2 (08:19→21:27)
[2016-06-13] MEDS: GUAIFENESIN/D-METHORPHAN HB 5 ML UDC PO PRN (08:19)
[2016-06-13] MEDS: BUDESONIDE RESPULE INH 0.5 MG/2 ML AMPUL.NEB IH SCH ×2 (08:28→19:55)
[2016-06-13] MEDS: BISACODYL SUPP (10 MG) 10 MG/SUPP.RECT SUPP.RECT RC PRN (14:37)
[2016-06-13] MEDS: INSULIN LISPRO/ASPART 100 UNIT/ML CARTRIDGE SQ PRN (17:17)
[2016-06-13] MEDS: MONTELUKAST SODIUM (10MG) 10 MG TABLET PO SCH (21:29)
[2016-06-13] MEDS: TEMAZEPAM 15 MG CAPSULE PO SCH (21:29)
[2016-06-13] MEDS: INSULIN DETEMIR 100 UNIT/ML CARTRIDGE SQ SCH (21:30)
[2016-06-14] MEDS: IPRATROPIUM NEB FS 0.5 MG/2.5 ML AMPUL.NEB IH SCH ×4 (02:24→20:06)
[2016-06-14] MEDS: ALBUTEROL FS 2.5 MG/3 ML VIAL.NEB NEB SCH ×4 (02:25→20:06)
[2016-06-14] MEDS: BLOOD SUGAR DIAGNOSTIC 1 EACH STRIP VI SCH ×4 (07:30→21:52)
[2016-06-14] MEDS: BUDESONIDE RESPULE INH 0.5 MG/2 ML AMPUL.NEB IH SCH ×2 (08:09→20:06)
[2016-06-14 08:11] VITALS: BP 127/86
[2016-06-14] MEDS: POLYVINYL ALCOHOL 15 ML BOTTLE EACHEYE SCH ×4 (09:00→21:53)
[2016-06-14] MEDS: RENAL NOVASOURCE (8OZ) 1 EA BOX PO SCH (09:00)
[2016-06-14] MEDS: DOCUSATE SODIUM 100 MG CAPSULE PO SCH (09:17)
[2016-06-14] MEDS: VIT B CMPLX 3/FA/VIT C/BIOTIN 1 TAB TABLET PO SCH (09:17)
[2016-06-14] MEDS: SITAGLIPTIN PHOSPHATE 25 MG TABLET PO SCH (09:17)
[2016-06-14] MEDS: PROSOURCE / PROSTAT (PYXIS) 30 ML UDC PO SCH ×3 (09:18→17:15)
[2016-06-14] MEDS: ASCORBIC ACID 500 MG TABLET PO SCH (09:18)
[2016-06-14] MEDS: SERTRALINE HCL 25 MG TABLET PO SCH (09:18)
[2016-06-14] MEDS: HEPARIN SODIUM, PORCINE 5000 UNITS/1 ML VIAL SQ SCH ×2 (09:19→21:50)
[2016-06-14] MEDS: MINERAL OIL/PETROL OINT 396 GM JAR TP SCH ×2 (09:19→21:50)
[2016-06-14] MEDS: HYDROGEN PEROXIDE 480 ML BOTTLE TP SCH ×2 (09:19→21:50)
[2016-06-14] MEDS: GUAIFENESIN/D-METHORPHAN HB 5 ML UDC PO PRN ×2 (09:20→21:53)
[2016-06-14] MEDS: ZINC OXIDE 56.7 GM TUBE TP SCH ×2 (09:20→21:51)
[2016-06-14] MEDS: diphenhydrAMINE HCL ELIX 25 MG/10 ML UDC PO PRN ×2 (09:20→18:03)
[2016-06-14] MEDS: INSULIN LISPRO/ASPART 100 UNIT/ML CARTRIDGE SQ PRN ×3 (12:17→21:53)
[2016-06-14] MEDS: BISACODYL SUPP (10 MG) 10 MG/SUPP.RECT SUPP.RECT RC PRN (12:26)
[2016-06-14 19:51] VITALS: BP 142/97
[2016-06-14] MEDS: TEMAZEPAM 15 MG CAPSULE PO SCH (21:51)
[2016-06-14] MEDS: MONTELUKAST SODIUM (10MG) 10 MG TABLET PO SCH (21:51)
[2016-06-14] MEDS: INSULIN DETEMIR 100 UNIT/ML CARTRIDGE SQ SCH (21:52)
[2016-06-15] MEDS: ALBUTEROL FS 2.5 MG/3 ML VIAL.NEB NEB SCH ×4 (00:48→19:08)
[2016-06-15] MEDS: IPRATROPIUM NEB FS 0.5 MG/2.5 ML AMPUL.NEB IH SCH ×4 (00:48→19:08)
[2016-06-15] MEDS: diphenhydrAMINE HCL ELIX 25 MG/10 ML UDC PO PRN ×3 (03:24→17:47)
[2016-06-15] MEDS: PANTOPRAZOLE 40 MG TABLET.DR PO SCH (05:31)
[2016-06-15] MEDS: BLOOD SUGAR DIAGNOSTIC 1 EACH STRIP VI SCH ×4 (06:46→21:13)
[2016-06-15] MEDS: INSULIN LISPRO/ASPART 100 UNIT/ML CARTRIDGE SQ PRN (06:47)
[2016-06-15 08:00] VITALS: BP 136/91
[2016-06-15] MEDS: BUDESONIDE RESPULE INH 0.5 MG/2 ML AMPUL.NEB IH SCH ×2 (08:25→20:33)
[2016-06-15] MEDS: POLYVINYL ALCOHOL 15 ML BOTTLE EACHEYE SCH ×4 (08:52→20:25)
[2016-06-15] MEDS: SITAGLIPTIN PHOSPHATE 25 MG TABLET PO SCH (08:52)
[2016-06-15] MEDS: PROSOURCE / PROSTAT (PYXIS) 30 ML UDC PO SCH ×3 (08:52→16:28)
[2016-06-15] MEDS: SERTRALINE HCL 25 MG TABLET PO SCH (08:52)
[2016-06-15] MEDS: RENAL NOVASOURCE (8OZ) 1 EA BOX PO SCH (08:52)
[2016-06-15] MEDS: ASCORBIC ACID 500 MG TABLET PO SCH (08:52)
[2016-06-15] MEDS: DOCUSATE SODIUM 100 MG CAPSULE PO SCH (08:52)
[2016-06-15] MEDS: VIT B CMPLX 3/FA/VIT C/BIOTIN 1 TAB TABLET PO SCH (08:52)
[2016-06-15] MEDS: MINERAL OIL/PETROL OINT 396 GM JAR TP SCH ×2 (08:53→20:26)
[2016-06-15] MEDS: HEPARIN SODIUM, PORCINE 5000 UNITS/1 ML VIAL SQ SCH ×2 (08:53→20:26)
[2016-06-15] MEDS: ZINC OXIDE 56.7 GM TUBE TP SCH ×2 (08:53→20:26)
[2016-06-15] MEDS: HYDROGEN PEROXIDE 480 ML BOTTLE TP SCH ×2 (08:53→20:26)
--- NOTE | 2016-06-15 10:10 | NUR ---
Notified Dr. Prieto that patient does not have appetite, did not eat breakfast, patient stated that he does not have the appetite because he is very itchy. All PRN related medications for his pruritus given. Dr. Prieto ordered to give additional dose of Benadryl 25 mg. x1. Resident informed.
[2016-06-15] MEDS ORDERED: diphenhydrAMINE HCL 25 MG CAPSULE PO ONE (10:30)
[2016-06-15 19:48] VITALS: BP 147/92
[2016-06-15] MEDS: GUAIFENESIN/D-METHORPHAN HB 5 ML UDC PO PRN (20:27)
[2016-06-15] MEDS: MONTELUKAST SODIUM (10MG) 10 MG TABLET PO SCH (21:12)
[2016-06-15] MEDS: TEMAZEPAM 15 MG CAPSULE PO SCH (21:12)
[2016-06-15] MEDS: INSULIN DETEMIR 100 UNIT/ML CARTRIDGE SQ SCH (21:13)
[2016-06-16] MEDS: IPRATROPIUM NEB FS 0.5 MG/2.5 ML AMPUL.NEB IH SCH ×4 (01:15→19:25)
[2016-06-16] MEDS: ALBUTEROL FS 2.5 MG/3 ML VIAL.NEB NEB SCH ×4 (01:15→19:25)
[2016-06-16] MEDS: diphenhydrAMINE HCL ELIX 25 MG/10 ML UDC PO PRN (01:55)
[2016-06-16] MEDS: GUAIFENESIN/D-METHORPHAN HB 5 ML UDC PO PRN ×3 (05:48→21:38)
[2016-06-16] MEDS: PANTOPRAZOLE 40 MG TABLET.DR PO SCH (05:57)
[2016-06-16 07:49] VITALS: BP 142/94
[2016-06-16] MEDS: BLOOD SUGAR DIAGNOSTIC 1 EACH STRIP VI SCH ×4 (08:26→21:37)
[2016-06-16] MEDS: VIT B CMPLX 3/FA/VIT C/BIOTIN 1 TAB TABLET PO SCH (08:26)
[2016-06-16] MEDS: POLYVINYL ALCOHOL 15 ML BOTTLE EACHEYE SCH ×4 (08:26→21:36)
[2016-06-16] MEDS: SITAGLIPTIN PHOSPHATE 25 MG TABLET PO SCH (08:26)
[2016-06-16] MEDS: DOCUSATE SODIUM 100 MG CAPSULE PO SCH (08:26)
[2016-06-16] MEDS: RENAL NOVASOURCE (8OZ) 1 EA BOX PO SCH (08:27)
[2016-06-16] MEDS: ASCORBIC ACID 500 MG TABLET PO SCH (08:27)
[2016-06-16] MEDS: PROSOURCE / PROSTAT (PYXIS) 30 ML UDC PO SCH ×3 (08:27→17:23)
[2016-06-16] MEDS: SERTRALINE HCL 25 MG TABLET PO SCH (08:27)
[2016-06-16] MEDS: BUDESONIDE RESPULE INH 0.5 MG/2 ML AMPUL.NEB IH SCH ×2 (08:37→19:25)
[2016-06-16] MEDS: HEPARIN SODIUM, PORCINE 5000 UNITS/1 ML VIAL SQ SCH ×2 (08:40→21:36)
[2016-06-16] MEDS: ZINC OXIDE 56.7 GM TUBE TP SCH ×2 (09:00→21:37)
[2016-06-16] MEDS: HYDROGEN PEROXIDE 480 ML BOTTLE TP SCH ×2 (09:00→21:36)
[2016-06-16] MEDS: MINERAL OIL/PETROL OINT 396 GM JAR TP SCH ×2 (09:00→21:36)
[2016-06-16] MEDS: INSULIN LISPRO/ASPART 100 UNIT/ML CARTRIDGE SQ PRN ×2 (11:47→21:38)
[2016-06-16 21:34] VITALS: BP 148/104
[2016-06-16] MEDS: MONTELUKAST SODIUM (10MG) 10 MG TABLET PO SCH (21:37)
[2016-06-16] MEDS: INSULIN DETEMIR 100 UNIT/ML CARTRIDGE SQ SCH (21:37)
[2016-06-16] MEDS: TEMAZEPAM 15 MG CAPSULE PO SCH (21:37)
[2016-06-17] MEDS: IPRATROPIUM NEB FS 0.5 MG/2.5 ML AMPUL.NEB IH SCH ×4 (00:53→20:09)
[2016-06-17] MEDS: ALBUTEROL FS 2.5 MG/3 ML VIAL.NEB NEB SCH ×4 (00:53→20:09)
[2016-06-17] MEDS: PANTOPRAZOLE 40 MG TABLET.DR PO SCH (05:36)
[2016-06-17 07:55] VITALS: BP 151/86
[2016-06-17] MEDS: BLOOD SUGAR DIAGNOSTIC 1 EACH STRIP VI SCH ×4 (08:12→21:25)
[2016-06-17] MEDS: POLYVINYL ALCOHOL 15 ML BOTTLE EACHEYE SCH ×4 (08:13→21:23)
[2016-06-17] MEDS: DOCUSATE SODIUM 100 MG CAPSULE PO SCH (08:19)
[2016-06-17] MEDS: SITAGLIPTIN PHOSPHATE 25 MG TABLET PO SCH (08:20)
[2016-06-17] MEDS: RENAL NOVASOURCE (8OZ) 1 EA BOX PO SCH (08:21)
[2016-06-17] MEDS: VIT B CMPLX 3/FA/VIT C/BIOTIN 1 TAB TABLET PO SCH (08:21)
[2016-06-17] MEDS: PROSOURCE / PROSTAT (PYXIS) 30 ML UDC PO SCH ×3 (08:21→16:34)
[2016-06-17] MEDS: SERTRALINE HCL 25 MG TABLET PO SCH (08:22)
[2016-06-17] MEDS: ASCORBIC ACID 500 MG TABLET PO SCH (08:22)
[2016-06-17] MEDS: HEPARIN SODIUM, PORCINE 5000 UNITS/1 ML VIAL SQ SCH ×2 (08:25→21:24)
[2016-06-17] MEDS: MINERAL OIL/PETROL OINT 396 GM JAR TP SCH ×2 (08:25→21:24)
[2016-06-17] MEDS: HYDROGEN PEROXIDE 480 ML BOTTLE TP SCH ×2 (08:25→21:24)
[2016-06-17] MEDS: ZINC OXIDE 56.7 GM TUBE TP SCH ×2 (08:26→21:24)
[2016-06-17] MEDS: diphenhydrAMINE HCL ELIX 25 MG/10 ML UDC PO PRN ×2 (08:36→16:43)
[2016-06-17] MEDS: BUDESONIDE RESPULE INH 0.5 MG/2 ML AMPUL.NEB IH SCH ×2 (09:44→20:26)
[2016-06-17] MEDS: INSULIN LISPRO/ASPART 100 UNIT/ML CARTRIDGE SQ PRN ×2 (12:02→16:34)
--- NOTE | 2016-06-17 18:52 | NUR ---
Pt was complaining of itchiness. Seen by PHARMACIST MANAGER Radha Petty. Received order to DC Benadryl and give Atarax 10 mg po q 8 hours PRN for pruritus. Offered pt a shower earlier but he refused. He agreed to shower on Friday.
[2016-06-17 20:03] VITALS: BP 142/81
[2016-06-17] MEDS: TEMAZEPAM 15 MG CAPSULE PO SCH (21:24)
[2016-06-17] MEDS: MONTELUKAST SODIUM (10MG) 10 MG TABLET PO SCH (21:24)
[2016-06-17] MEDS: GUAIFENESIN/D-METHORPHAN HB 5 ML UDC PO PRN (21:25)
[2016-06-17] MEDS: INSULIN DETEMIR 100 UNIT/ML CARTRIDGE SQ SCH (21:25)
[2016-06-18] MEDS: IPRATROPIUM NEB FS 0.5 MG/2.5 ML AMPUL.NEB IH SCH ×4 (01:03→19:56)
[2016-06-18] MEDS: ALBUTEROL FS 2.5 MG/3 ML VIAL.NEB NEB SCH ×4 (01:03→19:56)
[2016-06-18] MEDS: PANTOPRAZOLE 40 MG TABLET.DR PO SCH (05:39)
[2016-06-18 07:52] VITALS: BP 140/96
[2016-06-18] MEDS: BUDESONIDE RESPULE INH 0.5 MG/2 ML AMPUL.NEB IH SCH ×2 (08:06→20:37)
[2016-06-18] MEDS: hydrOXYzine 10 MG TABLET PO PRN ×2 (08:19→16:19)
[2016-06-18] MEDS: BLOOD SUGAR DIAGNOSTIC 1 EACH STRIP VI SCH ×4 (08:19→21:26)
[2016-06-18] MEDS: GUAIFENESIN/D-METHORPHAN HB 5 ML UDC PO PRN (08:19)
[2016-06-18] MEDS: PROSOURCE / PROSTAT (PYXIS) 30 ML UDC PO SCH ×3 (08:20→17:22)
[2016-06-18] MEDS: ASCORBIC ACID 500 MG TABLET PO SCH (08:20)
[2016-06-18] MEDS: VIT B CMPLX 3/FA/VIT C/BIOTIN 1 TAB TABLET PO SCH (08:20)
[2016-06-18] MEDS: POLYVINYL ALCOHOL 15 ML BOTTLE EACHEYE SCH ×4 (08:20→21:24)
[2016-06-18] MEDS: RENAL NOVASOURCE (8OZ) 1 EA BOX PO SCH (08:20)
[2016-06-18] MEDS: SERTRALINE HCL 25 MG TABLET PO SCH (08:20)
[2016-06-18] MEDS: DOCUSATE SODIUM 100 MG CAPSULE PO SCH (08:20)
[2016-06-18] MEDS: SITAGLIPTIN PHOSPHATE 25 MG TABLET PO SCH (08:20)
[2016-06-18] MEDS: ERGOCALCIFEROL (VITAMIN D 2) 50,000 UNIT CAPSULE PO SCH (08:20)
[2016-06-18] MEDS: HEPARIN SODIUM, PORCINE 5000 UNITS/1 ML VIAL SQ SCH ×2 (08:21→21:24)
[2016-06-18] MEDS: ZINC OXIDE 56.7 GM TUBE TP SCH ×2 (15:30→21:24)
[2016-06-18] MEDS: MINERAL OIL/PETROL OINT 396 GM JAR TP SCH ×2 (15:30→21:24)
[2016-06-18] MEDS: HYDROGEN PEROXIDE 480 ML BOTTLE TP SCH ×2 (15:30→21:24)
--- NOTE | 2016-06-18 18:35 | NUR ---
Pt did not eat well the whole day. Encouraged pt several times today to eat. He keeps saying that he will eat his food later. Asked him if there was anything he wanted to eat, but he just says that he will eat his sandwich later. Charge nurse went to talk with pt several times to encourage him to eat. For dinner, pt agreed to drink orange juice with ice. Charge nurse stayed with pt until he finished one small carton of orange juice with ice. Pt also refused to drink the Novasource renal supplement. He was mostly complaining of itching and was given Atarax as ordered. Charge nurse asked him if there was any reason why he does not want to eat. Pt said he feels weak. Explained to pt that if he eats it will help him not feel weak. Pt said he feels weak because he has not slept well for several nights. Asked him if he is getting his sleeping pill at night and he said yes. Notified ATM MECHANIC Radha Petty that pt is still complaining of itchiness and not eating well.
--- NOTE | 2016-06-18 18:57 | NUR ---
INFORMATION SECURITY RISK ANALYST Radha Petty ordered to increase Atarax to 25 mg po q 8 hours PRN for pruritus and she said to ask Dr. Prieto if she has suggestions for pt's poor appetite and weakness.
--- NOTE | 2016-06-18 19:00 | NUR ---
@1720 BS - 152, patient has refused the dinner tray being served. Insulin coverage per sliding scale held until patient ate his dinner food. Charge Nurse made aware.
--- NOTE | 2016-06-18 19:00 | NUR ---
Endorsed to night charge nurse that pt has not been eating well, blood sugar was 152 and regular insulin was not given since pt refused to eat.
--- NOTE | 2016-06-18 19:07 | NUR ---
Addendum - Dinner tray offered again, and explained importance of eating his dinner food, patient consumed only 10%. Barron juice 8 oz taken by patient per his request.
[2016-06-18 19:40] VITALS: BP 122/76
[2016-06-18] MEDS ORDERED: hydrOXYzine PAMOATE 25 MG CAPSULE PO PRN (20:30)
[2016-06-18] MEDS: MONTELUKAST SODIUM (10MG) 10 MG TABLET PO SCH (21:25)
[2016-06-18] MEDS: TEMAZEPAM 15 MG CAPSULE PO SCH (21:25)
[2016-06-18] MEDS: INSULIN DETEMIR 100 UNIT/ML CARTRIDGE SQ SCH (21:26)
[2016-06-19] MEDS: IPRATROPIUM NEB FS 0.5 MG/2.5 ML AMPUL.NEB IH SCH ×5 (01:44→20:01)
[2016-06-19] MEDS: ALBUTEROL FS 2.5 MG/3 ML VIAL.NEB NEB SCH ×5 (01:44→20:01)
[2016-06-19] MEDS: PANTOPRAZOLE 40 MG TABLET.DR PO SCH (05:41)
[2016-06-19] MEDS: BLOOD SUGAR DIAGNOSTIC 1 EACH STRIP VI SCH ×4 (07:38→22:00)
[2016-06-19] MEDS: INSULIN LISPRO/ASPART 100 UNIT/ML CARTRIDGE SQ PRN ×4 (07:39→22:01)
[2016-06-19 07:56] VITALS: BP 143/91
[2016-06-19] MEDS: VIT B CMPLX 3/FA/VIT C/BIOTIN 1 TAB TABLET PO SCH (08:00)
[2016-06-19] MEDS: SITAGLIPTIN PHOSPHATE 25 MG TABLET PO SCH (08:00)
[2016-06-19] MEDS: POLYVINYL ALCOHOL 15 ML BOTTLE EACHEYE SCH ×4 (08:00→21:58)
[2016-06-19] MEDS: DOCUSATE SODIUM 100 MG CAPSULE PO SCH (08:00)
[2016-06-19] MEDS: RENAL NOVASOURCE (8OZ) 1 EA BOX PO SCH (08:00)
[2016-06-19] MEDS: MINERAL OIL/PETROL OINT 396 GM JAR TP SCH ×2 (08:01→21:59)
[2016-06-19] MEDS: HYDROGEN PEROXIDE 480 ML BOTTLE TP SCH ×2 (08:01→21:59)
[2016-06-19] MEDS: ASCORBIC ACID 500 MG TABLET PO SCH (08:01)
[2016-06-19] MEDS: ZINC OXIDE 56.7 GM TUBE TP SCH ×2 (08:01→21:59)
[2016-06-19] MEDS: PROSOURCE / PROSTAT (PYXIS) 30 ML UDC PO SCH ×3 (08:01→17:00)
[2016-06-19] MEDS: SERTRALINE HCL 25 MG TABLET PO SCH (08:01)
[2016-06-19] MEDS: HEPARIN SODIUM, PORCINE 5000 UNITS/1 ML VIAL SQ SCH ×2 (08:01→21:59)
[2016-06-19] MEDS ORDERED: hydrOXYzine PAMOATE 25 MG CAPSULE PO PRN (08:30)
[2016-06-19] MEDS: BUDESONIDE RESPULE INH 0.5 MG/2 ML AMPUL.NEB IH SCH ×2 (08:44→20:12)
--- NOTE | 2016-06-19 09:23 | NUR ---
Notified Dr Barron Navarrete that resident that patient have no appetite to eat and he is complaining a lot of itchy. No new order given, he does want to give order for Megace at this time.
--- NOTE | 2016-06-19 13:26 | NUR ---
Resident complaining of itchiness and wants his anti itch medication Atarax to be given more often than every 8 hours as ordered. Radha DIRECTOR OF GRADUATE MEDICAL EDUCATION notified but she said "no" to increasing the frequency because he is a dialysis patient. Radha stated that his itchiness is better managed when he was on Neurontin. She gave an order for oatmeal bath treatment during shower day. Patient said it help after he was given oatmeal bath today.
[2016-06-19] MEDS: ATARAX 25 MG PO PRN (15:48)
--- NOTE | 2016-06-19 16:17 | NUR ---
Notified Radha Petty NP that resident agreed to restart his Neurontin. Previous dose was 300 mg. TID. Radha wants to start him off slow with 100 mg. Q HS. Orders noted and carried out.
[2016-06-19] MEDS ORDERED: GABAPENTIN 100 MG CAPSULE ONE (19:35)
[2016-06-19 20:07] VITALS: BP 127/88
[2016-06-19] MEDS: GUAIFENESIN/D-METHORPHAN HB 5 ML UDC PO PRN (20:23)
[2016-06-19] MEDS: TEMAZEPAM 15 MG CAPSULE PO SCH (21:59)
[2016-06-19] MEDS: GABAPENTIN 100 MG CAPSULE PO SCH (21:59)
[2016-06-19] MEDS: MONTELUKAST SODIUM (10MG) 10 MG TABLET PO SCH (21:59)
[2016-06-19] MEDS: INSULIN DETEMIR 100 UNIT/ML CARTRIDGE SQ SCH (22:00)
[2016-06-20] MEDS: ATARAX 25 MG PO PRN ×2 (00:43→21:13)
[2016-06-20] MEDS: IPRATROPIUM NEB FS 0.5 MG/2.5 ML AMPUL.NEB IH SCH ×5 (02:07→19:30)
[2016-06-20] MEDS: ALBUTEROL FS 2.5 MG/3 ML VIAL.NEB NEB SCH ×5 (02:08→19:30)
[2016-06-20] MEDS: PANTOPRAZOLE 40 MG TABLET.DR PO SCH (05:50)
[2016-06-20] MEDS: BLOOD SUGAR DIAGNOSTIC 1 EACH STRIP VI SCH ×4 (06:59→21:10)
[2016-06-20] MEDS: INSULIN LISPRO/ASPART 100 UNIT/ML CARTRIDGE SQ PRN ×2 (07:00→16:52)
[2016-06-20 07:42] VITALS: BP 142/105
--- NOTE | 2016-06-20 08:14 | NUR ---
SW went to speak to the patient to see if he has a fund set aside for personal items. Resident stated that he gets SSI/month. However, he noted that he does not get the money and social security keeps it. Resident will be going to dialysis today and oncology social work notified him that they can call the social security office together once he is back from dialysis. SW will follow up.
[2016-06-20] MEDS: PROSOURCE / PROSTAT (PYXIS) 30 ML UDC PO SCH ×3 (08:19→16:48)
[2016-06-20] MEDS: SITAGLIPTIN PHOSPHATE 25 MG TABLET PO SCH (08:19)
[2016-06-20] MEDS: POLYVINYL ALCOHOL 15 ML BOTTLE EACHEYE SCH ×4 (08:19→21:08)
[2016-06-20] MEDS: RENAL NOVASOURCE (8OZ) 1 EA BOX PO SCH (08:19)
[2016-06-20] MEDS: HEPARIN SODIUM, PORCINE 5000 UNITS/1 ML VIAL SQ SCH ×2 (08:19→21:09)
[2016-06-20] MEDS: SERTRALINE HCL 25 MG TABLET PO SCH (08:19)
[2016-06-20] MEDS: ASCORBIC ACID 500 MG TABLET PO SCH (08:19)
[2016-06-20] MEDS: DOCUSATE SODIUM 100 MG CAPSULE PO SCH (08:19)
[2016-06-20] MEDS: VIT B CMPLX 3/FA/VIT C/BIOTIN 1 TAB TABLET PO SCH (08:19)
[2016-06-20] MEDS: HYDROGEN PEROXIDE 480 ML BOTTLE TP SCH ×2 (08:20→21:09)
[2016-06-20] MEDS: ZINC OXIDE 56.7 GM TUBE TP SCH ×2 (08:20→21:09)
[2016-06-20] MEDS: MINERAL OIL/PETROL OINT 396 GM JAR TP SCH ×2 (08:20→21:09)
[2016-06-20] MEDS: BUDESONIDE RESPULE INH 0.5 MG/2 ML AMPUL.NEB IH SCH ×2 (09:05→20:31)
--- NOTE | 2016-06-20 12:45 | NUR ---
SW called the resident's brother Aly. Aly reported that he does not know anything about the resident's social security and did not know that resident is in need of personal items. He appreciated information and aids social worker's help in finding out if resident has a fund set up for personal items.
[2016-06-20] MEDS: GUAIFENESIN/D-METHORPHAN HB 5 ML UDC PO PRN ×2 (16:53→21:12)
--- NOTE | 2016-06-20 17:00 | NUR ---
Seen by Dr. Wagner. No new order.
[2016-06-20 20:21] VITALS: BP 141/71
[2016-06-20] MEDS: TEMAZEPAM 15 MG CAPSULE PO SCH (21:09)
[2016-06-20] MEDS: GABAPENTIN 100 MG CAPSULE PO SCH (21:09)
[2016-06-20] MEDS: MONTELUKAST SODIUM (10MG) 10 MG TABLET PO SCH (21:09)
[2016-06-20] MEDS: INSULIN DETEMIR 100 UNIT/ML CARTRIDGE SQ SCH (21:10)
[2016-06-21] MEDS: IPRATROPIUM NEB FS 0.5 MG/2.5 ML AMPUL.NEB IH SCH ×4 (00:44→19:41)
[2016-06-21] MEDS: ALBUTEROL FS 2.5 MG/3 ML VIAL.NEB NEB SCH ×4 (00:44→19:41)
[2016-06-21] MEDS: PANTOPRAZOLE 40 MG TABLET.DR PO SCH (06:39)
[2016-06-21] MEDS: BLOOD SUGAR DIAGNOSTIC 1 EACH STRIP VI SCH ×4 (06:42→21:32)
[2016-06-21] MEDS: INSULIN LISPRO/ASPART 100 UNIT/ML CARTRIDGE SQ PRN ×2 (06:43→13:25)
[2016-06-21] MEDS: ATARAX 25 MG PO PRN ×2 (06:44→21:07)
[2016-06-21 07:39] VITALS: BP 135/87
[2016-06-21] MEDS: BUDESONIDE RESPULE INH 0.5 MG/2 ML AMPUL.NEB IH SCH ×2 (08:37→21:33)
--- NOTE | 2016-06-21 08:41 | NUR ---
Resident was seen by inspection supervisor Dr. Wagner yesterday.
[2016-06-21] MEDS: VIT B CMPLX 3/FA/VIT C/BIOTIN 1 TAB TABLET PO SCH (09:00)
[2016-06-21] MEDS: DOCUSATE SODIUM 100 MG CAPSULE PO SCH (09:00)
[2016-06-21] MEDS: ASCORBIC ACID 500 MG TABLET PO SCH (09:00)
[2016-06-21] MEDS: SERTRALINE HCL 25 MG TABLET PO SCH (09:00)
[2016-06-21] MEDS: MINERAL OIL/PETROL OINT 396 GM JAR TP SCH ×2 (09:00→21:05)
[2016-06-21] MEDS: SITAGLIPTIN PHOSPHATE 25 MG TABLET PO SCH (09:00)
[2016-06-21] MEDS: POLYVINYL ALCOHOL 15 ML BOTTLE EACHEYE SCH ×4 (09:00→21:00)
[2016-06-21] MEDS: HYDROGEN PEROXIDE 480 ML BOTTLE TP SCH ×2 (09:00→21:05)
[2016-06-21] MEDS: ZINC OXIDE 56.7 GM TUBE TP SCH ×2 (09:00→21:05)
[2016-06-21] MEDS: PROSOURCE / PROSTAT (PYXIS) 30 ML UDC PO SCH ×3 (09:00→17:03)
[2016-06-21] MEDS: HEPARIN SODIUM, PORCINE 5000 UNITS/1 ML VIAL SQ SCH ×2 (09:00→21:04)
[2016-06-21] MEDS: RENAL NOVASOURCE (8OZ) 1 EA BOX PO SCH (09:00)
--- NOTE | 2016-06-21 13:20 | NUR ---
INTERDISCIPLINARY PLAN OF CARE CONFERENCE was held today. Brothmane Lu was unable to attend. Dr. Gardner and the interdisciplinary team reviewed the current plan of care in detail. New orders were reviewed. Resident receiving medication for depression and has been very itchy. Resident has no g-tube since 06/09/2016. No other changes were noted.
--- NOTE | 2016-06-21 14:38 | NUR ---
called the business office (ext [phone]) and spoke to Fo. She stated resident does not have a share of cost and to call social security office with resident to see about setting up a separate fund for personal items.
--- NOTE | 2016-06-21 16:49 | NUR ---
SW called the office of social security with the resident and he provided information. The worker stated that resident has not been receiving his benefits for two years as he failed to return documents that they sent to renew his benefits. Worker obtained information from the resident including financial information and also stated that resident had to re-apply for benefits, which resident was not happy about. Worker stated that telephone appointments are available and first available appt is August 06, 2015 at 1pm. She noted resident will be receiving a call from the [facility] office. biscuit factory worker booked this appt for the resident and provided her telephone number for resident's appointment. SW will follow up in July when it is time for resident's telephone appointment.
[2016-06-21 19:59] VITALS: BP 125/87
[2016-06-21] MEDS: BISACODYL SUPP (10 MG) 10 MG/SUPP.RECT SUPP.RECT RC PRN (20:49)
[2016-06-21] MEDS: GUAIFENESIN/D-METHORPHAN HB 5 ML UDC PO PRN (21:11)
[2016-06-21] MEDS: GABAPENTIN 100 MG CAPSULE PO SCH (21:33)
[2016-06-21] MEDS: TEMAZEPAM 15 MG CAPSULE PO SCH (21:33)
[2016-06-21] MEDS: MONTELUKAST SODIUM (10MG) 10 MG TABLET PO SCH (21:33)
[2016-06-21] MEDS: INSULIN DETEMIR 100 UNIT/ML CARTRIDGE SQ SCH (21:34)
[2016-06-22] MEDS: IPRATROPIUM NEB FS 0.5 MG/2.5 ML AMPUL.NEB IH SCH ×4 (01:59→20:12)
[2016-06-22] MEDS: ALBUTEROL FS 2.5 MG/3 ML VIAL.NEB NEB SCH ×4 (01:59→20:12)
[2016-06-22] MEDS: PANTOPRAZOLE 40 MG TABLET.DR PO SCH (06:22)
[2016-06-22] MEDS: GUAIFENESIN/D-METHORPHAN HB 5 ML UDC PO PRN ×2 (06:23→23:11)
[2016-06-22] MEDS: BLOOD SUGAR DIAGNOSTIC 1 EACH STRIP VI SCH ×4 (06:38→21:21)
[2016-06-22] MEDS: INSULIN LISPRO/ASPART 100 UNIT/ML CARTRIDGE SQ PRN ×2 (06:41→17:00)
[2016-06-22] MEDS: ATARAX 25 MG PO PRN ×3 (06:48→23:29)
[2016-06-22 08:00] VITALS: BP 122/80
[2016-06-22] MEDS: BUDESONIDE RESPULE INH 0.5 MG/2 ML AMPUL.NEB IH SCH ×2 (08:05→20:12)
[2016-06-22] MEDS: POLYVINYL ALCOHOL 15 ML BOTTLE EACHEYE SCH ×4 (09:00→21:18)
[2016-06-22] MEDS: DOCUSATE SODIUM 100 MG CAPSULE PO SCH (09:00)
[2016-06-22] MEDS: SITAGLIPTIN PHOSPHATE 25 MG TABLET PO SCH (09:00)
[2016-06-22] MEDS: RENAL NOVASOURCE (8OZ) 1 EA BOX PO SCH (09:00)
[2016-06-22] MEDS: HYDROGEN PEROXIDE 480 ML BOTTLE TP SCH ×2 (09:01→21:19)
[2016-06-22] MEDS: MINERAL OIL/PETROL OINT 396 GM JAR TP SCH ×2 (09:01→21:19)
[2016-06-22] MEDS: ASCORBIC ACID 500 MG TABLET PO SCH (09:01)
[2016-06-22] MEDS: PROSOURCE / PROSTAT (PYXIS) 30 ML UDC PO SCH ×3 (09:01→16:57)
[2016-06-22] MEDS: VIT B CMPLX 3/FA/VIT C/BIOTIN 1 TAB TABLET PO SCH (09:01)
[2016-06-22] MEDS: HEPARIN SODIUM, PORCINE 5000 UNITS/1 ML VIAL SQ SCH ×2 (09:01→21:19)
[2016-06-22] MEDS: SERTRALINE HCL 25 MG TABLET PO SCH (09:01)
[2016-06-22] MEDS: ZINC OXIDE 56.7 GM TUBE TP SCH ×2 (09:02→21:19)
[2016-06-22 20:07] VITALS: BP 132/78
[2016-06-22] MEDS: TEMAZEPAM 15 MG CAPSULE PO SCH (21:19)
[2016-06-22] MEDS: GABAPENTIN 100 MG CAPSULE PO SCH (21:19)
[2016-06-22] MEDS: MONTELUKAST SODIUM (10MG) 10 MG TABLET PO SCH (21:19)
[2016-06-22] MEDS: INSULIN DETEMIR 100 UNIT/ML CARTRIDGE SQ SCH (21:21)
[2016-06-23] MEDS: IPRATROPIUM NEB FS 0.5 MG/2.5 ML AMPUL.NEB IH SCH ×4 (02:08→19:32)
[2016-06-23] MEDS: ALBUTEROL FS 2.5 MG/3 ML VIAL.NEB NEB SCH ×4 (02:08→19:32)
[2016-06-23] MEDS: BLOOD SUGAR DIAGNOSTIC 1 EACH STRIP VI SCH ×4 (06:38→21:33)
[2016-06-23] MEDS: PANTOPRAZOLE 40 MG TABLET.DR PO SCH (06:38)
[2016-06-23] MEDS: INSULIN LISPRO/ASPART 100 UNIT/ML CARTRIDGE SQ PRN ×2 (06:39→21:34)
[2016-06-23 08:17] VITALS: BP 135/87
[2016-06-23] MEDS: VIT B CMPLX 3/FA/VIT C/BIOTIN 1 TAB TABLET PO SCH (08:31)
[2016-06-23] MEDS: DOCUSATE SODIUM 100 MG CAPSULE PO SCH (08:31)
[2016-06-23] MEDS: PROSOURCE / PROSTAT (PYXIS) 30 ML UDC PO SCH ×3 (08:31→16:18)
[2016-06-23] MEDS: SITAGLIPTIN PHOSPHATE 25 MG TABLET PO SCH (08:31)
[2016-06-23] MEDS: RENAL NOVASOURCE (8OZ) 1 EA BOX PO SCH (08:31)
[2016-06-23] MEDS: SERTRALINE HCL 25 MG TABLET PO SCH (08:31)
[2016-06-23] MEDS: POLYVINYL ALCOHOL 15 ML BOTTLE EACHEYE SCH ×4 (08:31→21:31)
[2016-06-23] MEDS: ASCORBIC ACID 500 MG TABLET PO SCH (08:32)
[2016-06-23] MEDS: BUDESONIDE RESPULE INH 0.5 MG/2 ML AMPUL.NEB IH SCH ×2 (08:36→20:04)
[2016-06-23] MEDS: MINERAL OIL/PETROL OINT 396 GM JAR TP SCH ×2 (09:00→21:31)
[2016-06-23] MEDS: HYDROGEN PEROXIDE 480 ML BOTTLE TP SCH ×2 (09:00→21:31)
[2016-06-23] MEDS: ZINC OXIDE 56.7 GM TUBE TP SCH ×2 (09:00→21:32)
[2016-06-23] MEDS: HEPARIN SODIUM, PORCINE 5000 UNITS/1 ML VIAL SQ SCH ×2 (09:33→21:31)
[2016-06-23 20:04] VITALS: BP 124/87
[2016-06-23] MEDS: GABAPENTIN 100 MG CAPSULE PO SCH (21:32)
[2016-06-23] MEDS: MONTELUKAST SODIUM (10MG) 10 MG TABLET PO SCH (21:32)
[2016-06-23] MEDS: TEMAZEPAM 15 MG CAPSULE PO SCH (21:32)
[2016-06-23] MEDS: INSULIN DETEMIR 100 UNIT/ML CARTRIDGE SQ SCH (21:33)
[2016-06-23] MEDS: ATARAX 25 MG PO PRN (22:54)
[2016-06-24] MEDS: ALBUTEROL FS 2.5 MG/3 ML VIAL.NEB NEB SCH ×4 (00:59→20:27)
[2016-06-24] MEDS: IPRATROPIUM NEB FS 0.5 MG/2.5 ML AMPUL.NEB IH SCH ×4 (00:59→20:27)
[2016-06-24] MEDS: PANTOPRAZOLE 40 MG TABLET.DR PO SCH (05:24)
[2016-06-24 08:00] VITALS: BP 139/92
[2016-06-24] MEDS: BLOOD SUGAR DIAGNOSTIC 1 EACH STRIP VI SCH ×4 (08:06→21:16)
[2016-06-24] MEDS: SITAGLIPTIN PHOSPHATE 25 MG TABLET PO SCH (08:19)
[2016-06-24] MEDS: VIT B CMPLX 3/FA/VIT C/BIOTIN 1 TAB TABLET PO SCH (08:19)
[2016-06-24] MEDS: RENAL NOVASOURCE (8OZ) 1 EA BOX PO SCH (08:19)
[2016-06-24] MEDS: DOCUSATE SODIUM 100 MG CAPSULE PO SCH (08:19)
[2016-06-24] MEDS: POLYVINYL ALCOHOL 15 ML BOTTLE EACHEYE SCH ×4 (08:19→21:14)
[2016-06-24] MEDS: SERTRALINE HCL 25 MG TABLET PO SCH (08:20)
[2016-06-24] MEDS: ASCORBIC ACID 500 MG TABLET PO SCH (08:20)
[2016-06-24] MEDS: PROSOURCE / PROSTAT (PYXIS) 30 ML UDC PO SCH ×3 (08:20→17:34)
[2016-06-24] MEDS: HEPARIN SODIUM, PORCINE 5000 UNITS/1 ML VIAL SQ SCH ×2 (08:20→21:15)
[2016-06-24] MEDS: INSULIN LISPRO/ASPART 100 UNIT/ML CARTRIDGE SQ PRN ×3 (08:30→17:37)
[2016-06-24] MEDS: ACETAMINOPHEN 650 MG/20 ML UDC- FOR SA PATIENTS ONLY PO PRN (08:31)
[2016-06-24] MEDS: ATARAX 25 MG PO PRN ×2 (08:32→23:41)
[2016-06-24] MEDS: BUDESONIDE RESPULE INH 0.5 MG/2 ML AMPUL.NEB IH SCH ×2 (08:50→20:46)
--- NOTE | 2016-06-24 15:54 | NUR ---
TRACH CARE DONE WITH NO PROBLEM. INNER TRACH CANNULA CHANGED.
[2016-06-24] MEDS: ZINC OXIDE 56.7 GM TUBE TP SCH ×2 (17:15→21:15)
[2016-06-24] MEDS: MINERAL OIL/PETROL OINT 396 GM JAR TP SCH ×2 (17:15→21:15)
[2016-06-24] MEDS: HYDROGEN PEROXIDE 480 ML BOTTLE TP SCH ×2 (17:15→21:15)
--- NOTE | 2016-06-24 19:04 | NUR ---
Seen by SIZE PAINTER Radha Petty. Pt told her that he is still feeling itchy. Received order to increase Neurontin to 200 mg po q HS. Pt aware of new order.
[2016-06-24 19:48] VITALS: BP 151/88
[2016-06-24] MEDS: GABAPENTIN 100 MG CAPSULE PO SCH (21:15)
[2016-06-24] MEDS: MONTELUKAST SODIUM (10MG) 10 MG TABLET PO SCH (21:15)
[2016-06-24] MEDS: TEMAZEPAM 15 MG CAPSULE PO SCH (21:15)
[2016-06-24] MEDS: INSULIN DETEMIR 100 UNIT/ML CARTRIDGE SQ SCH (21:15)
[2016-06-24] MEDS: GUAIFENESIN/D-METHORPHAN HB 5 ML UDC PO PRN (23:42)
[2016-06-25] MEDS: IPRATROPIUM NEB FS 0.5 MG/2.5 ML AMPUL.NEB IH SCH ×4 (00:58→19:30)
[2016-06-25] MEDS: ALBUTEROL FS 2.5 MG/3 ML VIAL.NEB NEB SCH ×4 (00:58→19:30)
[2016-06-25] MEDS: PANTOPRAZOLE 40 MG TABLET.DR PO SCH (05:34)
[2016-06-25] MEDS: BLOOD SUGAR DIAGNOSTIC 1 EACH STRIP VI SCH ×4 (07:33→21:10)
[2016-06-25] MEDS: INSULIN LISPRO/ASPART 100 UNIT/ML CARTRIDGE SQ PRN ×2 (07:36→17:22)
[2016-06-25 08:00] VITALS: BP 131/78
[2016-06-25] MEDS: PROSOURCE / PROSTAT (PYXIS) 30 ML UDC PO SCH ×3 (08:18→17:20)
[2016-06-25] MEDS: ASCORBIC ACID 500 MG TABLET PO SCH (08:18)
[2016-06-25] MEDS: SERTRALINE HCL 25 MG TABLET PO SCH (08:18)
[2016-06-25] MEDS: DOCUSATE SODIUM 100 MG CAPSULE PO SCH (08:18)
[2016-06-25] MEDS: VIT B CMPLX 3/FA/VIT C/BIOTIN 1 TAB TABLET PO SCH (08:18)
[2016-06-25] MEDS: ERGOCALCIFEROL (VITAMIN D 2) 50,000 UNIT CAPSULE PO SCH (08:18)
[2016-06-25] MEDS: RENAL NOVASOURCE (8OZ) 1 EA BOX PO SCH (08:18)
[2016-06-25] MEDS: SITAGLIPTIN PHOSPHATE 25 MG TABLET PO SCH (08:18)
[2016-06-25] MEDS: POLYVINYL ALCOHOL 15 ML BOTTLE EACHEYE SCH ×4 (08:18→21:08)
[2016-06-25] MEDS: HEPARIN SODIUM, PORCINE 5000 UNITS/1 ML VIAL SQ SCH ×2 (08:19→21:09)
[2016-06-25] MEDS: BUDESONIDE RESPULE INH 0.5 MG/2 ML AMPUL.NEB IH SCH ×2 (08:24→20:46)
--- NOTE | 2016-06-25 09:00 | NUR ---
Seen and examined by Dr Gardner with no new order
--- NOTE | 2016-06-25 13:40 | NUR ---
Resident cameback from dialysis in stable condition.V/S BP 127/91 HR 90 RR 18 Temp 98.1.
[2016-06-25] MEDS: MINERAL OIL/PETROL OINT 396 GM JAR TP SCH ×2 (14:30→21:09)
[2016-06-25] MEDS: ZINC OXIDE 56.7 GM TUBE TP SCH ×2 (14:30→21:09)
[2016-06-25] MEDS: HYDROGEN PEROXIDE 480 ML BOTTLE TP SCH ×2 (14:30→21:09)
--- NOTE | 2016-06-25 17:48 | NUR ---
Resident complained of tickling sensation in his right ear. Further assessment made no drainage noted, no c/o ear pain offered, no redness noted. Patient is requesting to have MD assess his right ear in the morning. Dr. Gardner made aware and ordered to have Dr. Fall assess/check the patient. Will endorse to the next shift accordingly. Addendum: 06/25/16 at 1818 by ANDREW FIGUEROA RN Correction: Patient's left ear
[2016-06-25 19:54] VITALS: BP 134/88
[2016-06-25] MEDS: GABAPENTIN 100 MG CAPSULE PO SCH (21:09)
[2016-06-25] MEDS: MONTELUKAST SODIUM (10MG) 10 MG TABLET PO SCH (21:09)
[2016-06-25] MEDS: TEMAZEPAM 15 MG CAPSULE PO SCH (21:09)
[2016-06-25] MEDS: INSULIN DETEMIR 100 UNIT/ML CARTRIDGE SQ SCH (21:10)
[2016-06-26] MEDS: IPRATROPIUM NEB FS 0.5 MG/2.5 ML AMPUL.NEB IH SCH ×4 (01:30→19:29)
[2016-06-26] MEDS: ALBUTEROL FS 2.5 MG/3 ML VIAL.NEB NEB SCH ×4 (01:30→19:29)
[2016-06-26] MEDS: PANTOPRAZOLE 40 MG TABLET.DR PO SCH (05:31)
[2016-06-26] MEDS: BLOOD SUGAR DIAGNOSTIC 1 EACH STRIP VI SCH ×4 (07:49→21:06)
[2016-06-26] MEDS: INSULIN LISPRO/ASPART 100 UNIT/ML CARTRIDGE SQ PRN ×4 (07:50→21:07)
[2016-06-26] MEDS: ATARAX 25 MG PO PRN (07:51)
[2016-06-26] MEDS: SITAGLIPTIN PHOSPHATE 25 MG TABLET PO SCH (08:02)
[2016-06-26] MEDS: VIT B CMPLX 3/FA/VIT C/BIOTIN 1 TAB TABLET PO SCH (08:02)
[2016-06-26] MEDS: DOCUSATE SODIUM 100 MG CAPSULE PO SCH (08:02)
[2016-06-26] MEDS: POLYVINYL ALCOHOL 15 ML BOTTLE EACHEYE SCH ×4 (08:02→21:04)
[2016-06-26] MEDS: RENAL NOVASOURCE (8OZ) 1 EA BOX PO SCH (08:03)
[2016-06-26] MEDS: ASCORBIC ACID 500 MG TABLET PO SCH (08:03)
[2016-06-26] MEDS: PROSOURCE / PROSTAT (PYXIS) 30 ML UDC PO SCH ×3 (08:03→16:41)
[2016-06-26] MEDS: SERTRALINE HCL 25 MG TABLET PO SCH (08:03)
[2016-06-26] MEDS: HYDROGEN PEROXIDE 480 ML BOTTLE TP SCH ×2 (08:05→21:04)
[2016-06-26] MEDS: HEPARIN SODIUM, PORCINE 5000 UNITS/1 ML VIAL SQ SCH ×2 (08:05→21:04)
[2016-06-26] MEDS: ZINC OXIDE 56.7 GM TUBE TP SCH ×2 (08:05→21:04)
[2016-06-26] MEDS: GUAIFENESIN/D-METHORPHAN HB 5 ML UDC PO PRN ×2 (08:05→22:00)
[2016-06-26] MEDS: MINERAL OIL/PETROL OINT 396 GM JAR TP SCH ×2 (08:05→21:04)
[2016-06-26] MEDS: BUDESONIDE RESPULE INH 0.5 MG/2 ML AMPUL.NEB IH SCH ×2 (08:26→19:29)
--- NOTE | 2016-06-26 09:07 | NUR ---
Left a message to Dr. South's staff c/o Paloma regarding ENT consult due to tickling sensation in the L ear. Awaiting for MD to call back.
[2016-06-26 10:21] VITALS: BP 132/84
--- NOTE | 2016-06-26 15:34 | NUR ---
Dr. South, ENT returned the call and he stated that he will see patient tomorrow between 0930 to 1000. Reminded MD that patient go for out-patient dialysis on , and Friday, PUT usually around 1000. Endorsed.
[2016-06-26] MEDS: BISACODYL SUPP (10 MG) 10 MG/SUPP.RECT SUPP.RECT RC PRN (16:41)
[2016-06-26 20:00] VITALS: BP 143/98
[2016-06-26] MEDS: GABAPENTIN 100 MG CAPSULE PO SCH (21:05)
[2016-06-26] MEDS: INSULIN DETEMIR 100 UNIT/ML CARTRIDGE SQ SCH (21:05)
[2016-06-26] MEDS: TEMAZEPAM 15 MG CAPSULE PO SCH (21:05)
[2016-06-26] MEDS: MONTELUKAST SODIUM (10MG) 10 MG TABLET PO SCH (21:05)
[2016-06-26] MEDS: NAPROXEN 500 MG TABLET PO PRN (22:20)
[2016-06-27] MEDS: ALBUTEROL FS 2.5 MG/3 ML VIAL.NEB NEB SCH ×4 (00:43→20:13)
[2016-06-27] MEDS: IPRATROPIUM NEB FS 0.5 MG/2.5 ML AMPUL.NEB IH SCH ×4 (00:43→20:13)
[2016-06-27] MEDS: PANTOPRAZOLE 40 MG TABLET.DR PO SCH (05:16)
[2016-06-27] MEDS: GUAIFENESIN/D-METHORPHAN HB 5 ML UDC PO PRN ×2 (06:43→21:56)
[2016-06-27] MEDS: BLOOD SUGAR DIAGNOSTIC 1 EACH STRIP VI SCH ×4 (06:52→21:53)
[2016-06-27] MEDS: INSULIN LISPRO/ASPART 100 UNIT/ML CARTRIDGE SQ PRN ×3 (06:55→21:54)
[2016-06-27 07:43] VITALS: BP 121/85
[2016-06-27] MEDS: BUDESONIDE RESPULE INH 0.5 MG/2 ML AMPUL.NEB IH SCH ×2 (08:09→20:28)
[2016-06-27] MEDS: RENAL NOVASOURCE (8OZ) 1 EA BOX PO SCH (09:00)
[2016-06-27] MEDS: POLYVINYL ALCOHOL 15 ML BOTTLE EACHEYE SCH ×4 (09:00→20:41)
[2016-06-27] MEDS: ATARAX 25 MG PO PRN (09:19)
[2016-06-27] MEDS: SERTRALINE HCL 25 MG TABLET PO SCH (09:20)
[2016-06-27] MEDS: HEPARIN SODIUM, PORCINE 5000 UNITS/1 ML VIAL SQ SCH ×2 (09:20→20:45)
[2016-06-27] MEDS: DOCUSATE SODIUM 100 MG CAPSULE PO SCH (09:20)
[2016-06-27] MEDS: PROSOURCE / PROSTAT (PYXIS) 30 ML UDC PO SCH ×3 (09:20→16:40)
[2016-06-27] MEDS: ASCORBIC ACID 500 MG TABLET PO SCH (09:20)
[2016-06-27] MEDS: VIT B CMPLX 3/FA/VIT C/BIOTIN 1 TAB TABLET PO SCH (09:20)
[2016-06-27] MEDS: SITAGLIPTIN PHOSPHATE 25 MG TABLET PO SCH (09:20)
[2016-06-27] MEDS: HYDROGEN PEROXIDE 480 ML BOTTLE TP SCH ×2 (09:21→20:46)
[2016-06-27] MEDS: MINERAL OIL/PETROL OINT 396 GM JAR TP SCH ×2 (09:21→20:46)
[2016-06-27] MEDS: ZINC OXIDE 56.7 GM TUBE TP SCH ×2 (09:21→20:46)
[2016-06-27 19:45] VITALS: BP 143/82
[2016-06-27] MEDS: TEMAZEPAM 15 MG CAPSULE PO SCH (21:49)
[2016-06-27] MEDS: GABAPENTIN 100 MG CAPSULE PO SCH (21:49)
[2016-06-27] MEDS: MONTELUKAST SODIUM (10MG) 10 MG TABLET PO SCH (21:50)
[2016-06-27] MEDS: INSULIN DETEMIR 100 UNIT/ML CARTRIDGE SQ SCH (21:52)
[2016-06-27] MEDS: NAPROXEN 500 MG TABLET PO PRN (21:56)
[2016-06-28] MEDS: IPRATROPIUM NEB FS 0.5 MG/2.5 ML AMPUL.NEB IH SCH ×4 (02:12→20:22)
[2016-06-28] MEDS: ALBUTEROL FS 2.5 MG/3 ML VIAL.NEB NEB SCH ×4 (02:12→20:22)
[2016-06-28] MEDS: PANTOPRAZOLE 40 MG TABLET.DR PO SCH (06:16)
[2016-06-28] MEDS: BLOOD SUGAR DIAGNOSTIC 1 EACH STRIP VI SCH ×4 (06:44→22:05)
[2016-06-28] MEDS: INSULIN LISPRO/ASPART 100 UNIT/ML CARTRIDGE SQ PRN ×3 (06:45→22:06)
[2016-06-28 07:40] VITALS: BP 117/79
[2016-06-28] MEDS: BUDESONIDE RESPULE INH 0.5 MG/2 ML AMPUL.NEB IH SCH ×2 (08:00→20:59)
[2016-06-28] MEDS: PROSOURCE / PROSTAT (PYXIS) 30 ML UDC PO SCH ×3 (08:30→16:47)
[2016-06-28] MEDS: POLYVINYL ALCOHOL 15 ML BOTTLE EACHEYE SCH ×4 (08:30→20:35)
[2016-06-28] MEDS: SITAGLIPTIN PHOSPHATE 25 MG TABLET PO SCH (08:30)
[2016-06-28] MEDS: ASCORBIC ACID 500 MG TABLET PO SCH (08:30)
[2016-06-28] MEDS: RENAL NOVASOURCE (8OZ) 1 EA BOX PO SCH (08:30)
[2016-06-28] MEDS: SERTRALINE HCL 25 MG TABLET PO SCH (08:30)
[2016-06-28] MEDS: DOCUSATE SODIUM 100 MG CAPSULE PO SCH (08:30)
[2016-06-28] MEDS: VIT B CMPLX 3/FA/VIT C/BIOTIN 1 TAB TABLET PO SCH (08:30)
[2016-06-28] MEDS: HYDROGEN PEROXIDE 480 ML BOTTLE TP SCH ×2 (08:31→20:35)
[2016-06-28] MEDS: ZINC OXIDE 56.7 GM TUBE TP SCH ×2 (08:31→20:35)
[2016-06-28] MEDS: HEPARIN SODIUM, PORCINE 5000 UNITS/1 ML VIAL SQ SCH ×2 (08:31→20:35)
[2016-06-28] MEDS: MINERAL OIL/PETROL OINT 396 GM JAR TP SCH ×2 (08:31→20:35)
[2016-06-28] MEDS: ATARAX 25 MG PO PRN (08:42)
[2016-06-28] MEDS: GUAIFENESIN/D-METHORPHAN HB 5 ML UDC PO PRN ×2 (08:42→22:16)
[2016-06-28] MEDS: BISACODYL SUPP (10 MG) 10 MG/SUPP.RECT SUPP.RECT RC PRN (10:51)
--- NOTE | 2016-06-28 10:59 | NUR ---
Resident received a letter from [employer]. Opened letter with resident's permission and letter indicates the date and time of resident's telephone appointment (August 05, 2016 at 1pm).
[2016-06-28 19:40] VITALS: BP 147/95
[2016-06-28] MEDS: MONTELUKAST SODIUM (10MG) 10 MG TABLET PO SCH (22:04)
[2016-06-28] MEDS: GABAPENTIN 100 MG CAPSULE PO SCH (22:04)
[2016-06-28] MEDS: TEMAZEPAM 15 MG CAPSULE PO SCH (22:04)
[2016-06-28] MEDS: INSULIN DETEMIR 100 UNIT/ML CARTRIDGE SQ SCH (22:05)
[2016-06-28] MEDS: NAPROXEN 500 MG TABLET PO PRN (22:16)
[2016-06-29] MEDS: IPRATROPIUM NEB FS 0.5 MG/2.5 ML AMPUL.NEB IH SCH ×4 (00:51→19:49)
[2016-06-29] MEDS: ALBUTEROL FS 2.5 MG/3 ML VIAL.NEB NEB SCH ×4 (00:51→19:49)
[2016-06-29] MEDS: PANTOPRAZOLE 40 MG TABLET.DR PO SCH (05:34)
[2016-06-29] MEDS: BLOOD SUGAR DIAGNOSTIC 1 EACH STRIP VI SCH ×4 (07:00→21:04)
[2016-06-29] MEDS: INSULIN LISPRO/ASPART 100 UNIT/ML CARTRIDGE SQ PRN ×3 (07:01→21:07)
[2016-06-29] MEDS: VIT B CMPLX 3/FA/VIT C/BIOTIN 1 TAB TABLET PO SCH (08:35)
[2016-06-29] MEDS: SITAGLIPTIN PHOSPHATE 25 MG TABLET PO SCH (08:35)
[2016-06-29] MEDS: DOCUSATE SODIUM 100 MG CAPSULE PO SCH (08:35)
[2016-06-29] MEDS: ASCORBIC ACID 500 MG TABLET PO SCH (08:35)
[2016-06-29] MEDS: RENAL NOVASOURCE (8OZ) 1 EA BOX PO SCH (08:35)
[2016-06-29] MEDS: SERTRALINE HCL 25 MG TABLET PO SCH (08:35)
[2016-06-29] MEDS: PROSOURCE / PROSTAT (PYXIS) 30 ML UDC PO SCH ×3 (08:35→16:50)
[2016-06-29] MEDS: POLYVINYL ALCOHOL 15 ML BOTTLE EACHEYE SCH ×4 (08:35→21:03)
[2016-06-29] MEDS: ZINC OXIDE 56.7 GM TUBE TP SCH ×2 (08:36→21:04)
[2016-06-29] MEDS: HEPARIN SODIUM, PORCINE 5000 UNITS/1 ML VIAL SQ SCH ×2 (08:36→21:07)
[2016-06-29] MEDS: MINERAL OIL/PETROL OINT 396 GM JAR TP SCH ×2 (08:36→21:04)
[2016-06-29] MEDS: HYDROGEN PEROXIDE 480 ML BOTTLE TP SCH ×2 (08:36→21:04)
[2016-06-29] MEDS: GUAIFENESIN/D-METHORPHAN HB 5 ML UDC PO PRN ×2 (08:37→21:04)
[2016-06-29] MEDS: ATARAX 25 MG PO PRN (08:37)
[2016-06-29] MEDS: BUDESONIDE RESPULE INH 0.5 MG/2 ML AMPUL.NEB IH SCH ×2 (09:00→19:49)
[2016-06-29] MEDS: MAG HYDROX/AL HYDROX/SIMETH 30 ML UDC PO PRN (15:50)
[2016-06-29] MEDS: NAPROXEN 500 MG TABLET PO PRN (17:08)
[2016-06-29 19:54] VITALS: BP 129/82
[2016-06-29] MEDS: MONTELUKAST SODIUM (10MG) 10 MG TABLET PO SCH (21:04)
[2016-06-29] MEDS: TEMAZEPAM 15 MG CAPSULE PO SCH (21:04)
[2016-06-29] MEDS: GABAPENTIN 100 MG CAPSULE PO SCH (21:04)
[2016-06-29] MEDS: INSULIN DETEMIR 100 UNIT/ML CARTRIDGE SQ SCH (21:08)
[2016-06-30] MEDS: IPRATROPIUM NEB FS 0.5 MG/2.5 ML AMPUL.NEB IH SCH ×4 (01:59→20:28)
[2016-06-30] MEDS: ALBUTEROL FS 2.5 MG/3 ML VIAL.NEB NEB SCH ×4 (01:59→20:28)
[2016-06-30] MEDS: BLOOD SUGAR DIAGNOSTIC 1 EACH STRIP VI SCH ×4 (06:42→21:26)
[2016-06-30] MEDS: PANTOPRAZOLE 40 MG TABLET.DR PO SCH (06:42)
[2016-06-30 07:39] VITALS: BP 125/85
[2016-06-30] MEDS: BUDESONIDE RESPULE INH 0.5 MG/2 ML AMPUL.NEB IH SCH ×2 (08:10→20:28)
[2016-06-30] MEDS: SITAGLIPTIN PHOSPHATE 25 MG TABLET PO SCH (08:54)
[2016-06-30] MEDS: VIT B CMPLX 3/FA/VIT C/BIOTIN 1 TAB TABLET PO SCH (08:54)
[2016-06-30] MEDS: DOCUSATE SODIUM 100 MG CAPSULE PO SCH (08:54)
[2016-06-30] MEDS: POLYVINYL ALCOHOL 15 ML BOTTLE EACHEYE SCH ×4 (08:54→20:44)
[2016-06-30] MEDS: ASCORBIC ACID 500 MG TABLET PO SCH (08:56)
[2016-06-30] MEDS: SERTRALINE HCL 25 MG TABLET PO SCH (08:56)
[2016-06-30] MEDS: HEPARIN SODIUM, PORCINE 5000 UNITS/1 ML VIAL SQ SCH ×2 (08:56→20:44)
[2016-06-30] MEDS: PROSOURCE / PROSTAT (PYXIS) 30 ML UDC PO SCH ×3 (08:56→17:00)
[2016-06-30] MEDS: GUAIFENESIN/D-METHORPHAN HB 5 ML UDC PO PRN (08:57)
[2016-06-30] MEDS: NAPROXEN 500 MG TABLET PO PRN (08:58)
[2016-06-30] MEDS: ZINC OXIDE 56.7 GM TUBE TP SCH ×2 (09:00→20:46)
[2016-06-30] MEDS: RENAL NOVASOURCE (8OZ) 1 EA BOX PO SCH (09:00)
[2016-06-30] MEDS: MINERAL OIL/PETROL OINT 396 GM JAR TP SCH ×2 (09:00→20:45)
[2016-06-30] MEDS: HYDROGEN PEROXIDE 480 ML BOTTLE TP SCH ×2 (09:00→20:46)
[2016-06-30] MEDS: INSULIN LISPRO/ASPART 100 UNIT/ML CARTRIDGE SQ PRN ×2 (11:48→21:29)
--- NOTE | 2016-06-30 18:38 | NUR ---
Received order from Dr. Peacock on-call for Dr. Navarrete to resume heparin order noted and carried out.
[2016-06-30 19:46] VITALS: BP 135/88
[2016-06-30] MEDS: MONTELUKAST SODIUM (10MG) 10 MG TABLET PO SCH (21:50)
[2016-06-30] MEDS: GABAPENTIN 100 MG CAPSULE PO SCH (21:50)
[2016-06-30] MEDS: TEMAZEPAM 15 MG CAPSULE PO SCH (21:50)
[2016-06-30] MEDS: INSULIN DETEMIR 100 UNIT/ML CARTRIDGE SQ SCH (21:51)
[2016-07-01] MEDS: ALBUTEROL FS 2.5 MG/3 ML VIAL.NEB NEB SCH ×4 (01:33→20:02)
[2016-07-01] MEDS: IPRATROPIUM NEB FS 0.5 MG/2.5 ML AMPUL.NEB IH SCH ×4 (01:33→20:02)
[2016-07-01] MEDS: PANTOPRAZOLE 40 MG TABLET.DR PO SCH (06:08)
[2016-07-01] MEDS: BLOOD SUGAR DIAGNOSTIC 1 EACH STRIP VI SCH ×4 (07:30→21:21)
[2016-07-01 08:12] VITALS: BP 130/87
[2016-07-01] MEDS: SITAGLIPTIN PHOSPHATE 25 MG TABLET PO SCH (08:47)
[2016-07-01] MEDS: PROSOURCE / PROSTAT (PYXIS) 30 ML UDC PO SCH ×3 (08:47→17:59)
[2016-07-01] MEDS: HEPARIN SODIUM, PORCINE 5000 UNITS/1 ML VIAL SQ SCH ×2 (08:47→20:03)
[2016-07-01] MEDS: SERTRALINE HCL 25 MG TABLET PO SCH (08:47)
[2016-07-01] MEDS: ASCORBIC ACID 500 MG TABLET PO SCH (08:47)
[2016-07-01] MEDS: VIT B CMPLX 3/FA/VIT C/BIOTIN 1 TAB TABLET PO SCH (08:47)
[2016-07-01] MEDS: POLYVINYL ALCOHOL 15 ML BOTTLE EACHEYE SCH ×4 (08:47→20:03)
[2016-07-01] MEDS: DOCUSATE SODIUM 100 MG CAPSULE PO SCH (08:47)
[2016-07-01] MEDS: INSULIN LISPRO/ASPART 100 UNIT/ML CARTRIDGE SQ PRN ×4 (08:52→21:27)
[2016-07-01] MEDS: BUDESONIDE RESPULE INH 0.5 MG/2 ML AMPUL.NEB IH SCH ×2 (08:55→20:02)
[2016-07-01] MEDS: RENAL NOVASOURCE (8OZ) 1 EA BOX PO SCH (09:00)
[2016-07-01] MEDS: ATARAX 25 MG PO PRN ×2 (09:04→20:02)
[2016-07-01] MEDS: ZINC OXIDE 56.7 GM TUBE TP SCH ×2 (09:55→20:04)
[2016-07-01] MEDS: HYDROGEN PEROXIDE 480 ML BOTTLE TP SCH ×2 (09:55→20:03)
[2016-07-01] MEDS: MINERAL OIL/PETROL OINT 396 GM JAR TP SCH ×2 (09:55→20:03)
--- NOTE | 2016-07-01 18:11 | NUR ---
Seen by ARNOL Petty. Pt verbalized that his trach tube is bothering him and usually a trach tube change helps. ARNOL Petty said to have pt's trach tube changed and also received order to give Lidocaine 1% 10 mL via inhalation q 6 hours PRN for tracheal discomfort x 3 days. Pt aware of new order.
--- NOTE | 2016-07-01 18:38 | NUR ---
PATIENT'S STATES THAT HIS TRACH IS BOTHERING HIM AND TRACH CHANGE ELEVATES DISCOMFORT. TRACH CHANGED (#7 SHILEY XLT PROXIMAL) WITH DEFLATED BALLOON. NURSE(MIK) AWARE. PLACED BACK ON 28% COOL AEROSOL. PATIENT TOLERATED WELL WITH NO REDNESS OR BLEEDING. BACK UP TRACH AND AMBU BAG AT [facility].
[2016-07-01] MEDS: GUAIFENESIN/D-METHORPHAN HB 5 ML UDC PO PRN (20:02)
[2016-07-01] MEDS: NAPROXEN 500 MG TABLET PO PRN (20:02)
[2016-07-01] MEDS: GABAPENTIN 100 MG CAPSULE PO SCH (21:20)
[2016-07-01] MEDS: INSULIN DETEMIR 100 UNIT/ML CARTRIDGE SQ SCH (21:21)
[2016-07-01] MEDS: TEMAZEPAM 15 MG CAPSULE PO SCH (21:21)
[2016-07-01] MEDS: MONTELUKAST SODIUM (10MG) 10 MG TABLET PO SCH (21:21)
[2016-07-01] MEDS ORDERED: LIDOCAINE /MPF 1% VIAL 5 ML VIAL NEB PRN (21:30)
[2016-07-01 23:19] VITALS: BP 135/77
[2016-07-02] MEDS: IPRATROPIUM NEB FS 0.5 MG/2.5 ML AMPUL.NEB IH SCH ×4 (02:11→20:29)
[2016-07-02] MEDS: ALBUTEROL FS 2.5 MG/3 ML VIAL.NEB NEB SCH ×4 (02:11→20:29)
[2016-07-02] MEDS: PANTOPRAZOLE 40 MG TABLET.DR PO SCH (06:16)
[2016-07-02] MEDS: BLOOD SUGAR DIAGNOSTIC 1 EACH STRIP VI SCH ×4 (07:30→21:28)
--- NOTE | 2016-07-02 08:00 | NUR ---
Pt's blood sugar 57. Pt refused D50, he is eating his breakfast. Offered him orange juice and he agreed. Addendum: 07/02/16 at 0839 by DIGNA VALDEZ RN Pt alert and responsive.
[2016-07-02 08:01] VITALS: BP 134/73
[2016-07-02] MEDS: BUDESONIDE RESPULE INH 0.5 MG/2 ML AMPUL.NEB IH SCH ×2 (08:14→20:29)
[2016-07-02] MEDS: RENAL NOVASOURCE (8OZ) 1 EA BOX PO SCH (08:55)
[2016-07-02] MEDS: ERGOCALCIFEROL (VITAMIN D 2) 50,000 UNIT CAPSULE PO SCH (08:55)
[2016-07-02] MEDS: VIT B CMPLX 3/FA/VIT C/BIOTIN 1 TAB TABLET PO SCH (08:55)
[2016-07-02] MEDS: ASCORBIC ACID 500 MG TABLET PO SCH (08:55)
[2016-07-02] MEDS: SERTRALINE HCL 25 MG TABLET PO SCH (08:55)
[2016-07-02] MEDS: SITAGLIPTIN PHOSPHATE 25 MG TABLET PO SCH (08:55)
[2016-07-02] MEDS: PROSOURCE / PROSTAT (PYXIS) 30 ML UDC PO SCH ×3 (08:55→17:00)
[2016-07-02] MEDS: DOCUSATE SODIUM 100 MG CAPSULE PO SCH (08:55)
[2016-07-02] MEDS: POLYVINYL ALCOHOL 15 ML BOTTLE EACHEYE SCH ×4 (08:55→20:30)
--- NOTE | 2016-07-02 08:55 | NUR ---
Rechecked pt's blood sugar. Blood sugar is now 139.
[2016-07-02] MEDS: ZINC OXIDE 56.7 GM TUBE TP SCH ×2 (08:56→20:25)
[2016-07-02] MEDS: HYDROGEN PEROXIDE 480 ML BOTTLE TP SCH ×2 (08:56→20:25)
[2016-07-02] MEDS: MINERAL OIL/PETROL OINT 396 GM JAR TP SCH ×2 (08:56→20:25)
[2016-07-02] MEDS: HEPARIN SODIUM, PORCINE 5000 UNITS/1 ML VIAL SQ SCH ×2 (08:56→20:25)
[2016-07-02] MEDS: INSULIN LISPRO/ASPART 100 UNIT/ML CARTRIDGE SQ PRN ×2 (08:57→18:22)
[2016-07-02] MEDS: NAPROXEN 500 MG TABLET PO PRN (09:25)
--- NOTE | 2016-07-02 10:05 | NUR ---
Seen and examined by Dr Gardner with no new order
[2016-07-02 20:09] VITALS: BP 131/75
[2016-07-02] MEDS: GABAPENTIN 100 MG CAPSULE PO SCH (21:27)
[2016-07-02] MEDS: TEMAZEPAM 15 MG CAPSULE PO SCH (21:27)
[2016-07-02] MEDS: MONTELUKAST SODIUM (10MG) 10 MG TABLET PO SCH (21:28)
[2016-07-02] MEDS: INSULIN DETEMIR 100 UNIT/ML CARTRIDGE SQ SCH (21:28)
[2016-07-03] MEDS: IPRATROPIUM NEB FS 0.5 MG/2.5 ML AMPUL.NEB IH SCH ×4 (02:20→19:42)
[2016-07-03] MEDS: ALBUTEROL FS 2.5 MG/3 ML VIAL.NEB NEB SCH ×4 (02:20→19:42)
[2016-07-03] MEDS: PANTOPRAZOLE 40 MG TABLET.DR PO SCH (06:34)
[2016-07-03] MEDS: BLOOD SUGAR DIAGNOSTIC 1 EACH STRIP VI SCH ×4 (07:30→22:08)
[2016-07-03 08:24] VITALS: BP 141/87
[2016-07-03] MEDS: POLYVINYL ALCOHOL 15 ML BOTTLE EACHEYE SCH ×4 (08:34→21:11)
[2016-07-03] MEDS: SERTRALINE HCL 25 MG TABLET PO SCH (08:34)
[2016-07-03] MEDS: VIT B CMPLX 3/FA/VIT C/BIOTIN 1 TAB TABLET PO SCH (08:34)
[2016-07-03] MEDS: DOCUSATE SODIUM 100 MG CAPSULE PO SCH (08:34)
[2016-07-03] MEDS: ASCORBIC ACID 500 MG TABLET PO SCH (08:34)
[2016-07-03] MEDS: RENAL NOVASOURCE (8OZ) 1 EA BOX PO SCH (08:34)
[2016-07-03] MEDS: SITAGLIPTIN PHOSPHATE 25 MG TABLET PO SCH (08:34)
[2016-07-03] MEDS: PROSOURCE / PROSTAT (PYXIS) 30 ML UDC PO SCH ×3 (08:34→17:37)
[2016-07-03] MEDS: NAPROXEN 500 MG TABLET PO PRN ×2 (09:00→21:11)
[2016-07-03] MEDS: GUAIFENESIN/D-METHORPHAN HB 5 ML UDC PO PRN ×2 (09:00→21:11)
[2016-07-03] MEDS: BUDESONIDE RESPULE INH 0.5 MG/2 ML AMPUL.NEB IH SCH ×2 (09:49→20:00)
[2016-07-03] MEDS: MINERAL OIL/PETROL OINT 396 GM JAR TP SCH ×2 (09:55→21:12)
[2016-07-03] MEDS: HYDROGEN PEROXIDE 480 ML BOTTLE TP SCH ×2 (09:55→21:12)
[2016-07-03] MEDS: ZINC OXIDE 56.7 GM TUBE TP SCH ×2 (09:55→21:12)
[2016-07-03] MEDS: HEPARIN SODIUM, PORCINE 5000 UNITS/1 ML VIAL SQ SCH ×2 (09:55→21:12)
[2016-07-03] MEDS: INSULIN LISPRO/ASPART 100 UNIT/ML CARTRIDGE SQ PRN ×2 (12:54→22:10)
[2016-07-03 19:56] VITALS: BP 136/97
[2016-07-03] MEDS: GABAPENTIN 100 MG CAPSULE PO SCH (22:07)
[2016-07-03] MEDS: TEMAZEPAM 15 MG CAPSULE PO SCH (22:08)
[2016-07-03] MEDS: INSULIN DETEMIR 100 UNIT/ML CARTRIDGE SQ SCH (22:08)
[2016-07-03] MEDS: MONTELUKAST SODIUM (10MG) 10 MG TABLET PO SCH (22:08)
[2016-07-03] MEDS: ATARAX 25 MG PO PRN (22:11)
[2016-07-04] MEDS: ALBUTEROL FS 2.5 MG/3 ML VIAL.NEB NEB SCH ×4 (01:48→19:18)
[2016-07-04] MEDS: IPRATROPIUM NEB FS 0.5 MG/2.5 ML AMPUL.NEB IH SCH ×4 (01:48→19:18)
[2016-07-04] MEDS: PANTOPRAZOLE 40 MG TABLET.DR PO SCH (06:05)
[2016-07-04] MEDS: BLOOD SUGAR DIAGNOSTIC 1 EACH STRIP VI SCH ×4 (07:04→21:25)
[2016-07-04] MEDS: INSULIN LISPRO/ASPART 100 UNIT/ML CARTRIDGE SQ PRN ×3 (07:04→21:26)
[2016-07-04 07:51] VITALS: BP 128/81
[2016-07-04] MEDS: BUDESONIDE RESPULE INH 0.5 MG/2 ML AMPUL.NEB IH SCH ×2 (08:35→20:33)
[2016-07-04] MEDS: SERTRALINE HCL 25 MG TABLET PO SCH (08:38)
[2016-07-04] MEDS: VIT B CMPLX 3/FA/VIT C/BIOTIN 1 TAB TABLET PO SCH (08:38)
[2016-07-04] MEDS: POLYVINYL ALCOHOL 15 ML BOTTLE EACHEYE SCH ×4 (08:38→21:23)
[2016-07-04] MEDS: ASCORBIC ACID 500 MG TABLET PO SCH (08:38)
[2016-07-04] MEDS: PROSOURCE / PROSTAT (PYXIS) 30 ML UDC PO SCH ×3 (08:38→17:12)
[2016-07-04] MEDS: SITAGLIPTIN PHOSPHATE 25 MG TABLET PO SCH (08:38)
[2016-07-04] MEDS: DOCUSATE SODIUM 100 MG CAPSULE PO SCH (08:38)
[2016-07-04] MEDS: RENAL NOVASOURCE (8OZ) 1 EA BOX PO SCH (08:38)
[2016-07-04] MEDS: HEPARIN SODIUM, PORCINE 5000 UNITS/1 ML VIAL SQ SCH ×2 (08:41→21:23)
[2016-07-04] MEDS: HYDROGEN PEROXIDE 480 ML BOTTLE TP SCH ×2 (08:42→21:24)
[2016-07-04] MEDS: ZINC OXIDE 56.7 GM TUBE TP SCH ×2 (08:42→21:24)
[2016-07-04] MEDS: MINERAL OIL/PETROL OINT 396 GM JAR TP SCH ×2 (08:42→21:24)
[2016-07-04] MEDS: GUAIFENESIN/D-METHORPHAN HB 5 ML UDC PO PRN ×2 (08:50→21:26)
[2016-07-04] MEDS: ATARAX 25 MG PO PRN ×2 (08:50→22:13)
[2016-07-04] MEDS: BISACODYL SUPP (10 MG) 10 MG/SUPP.RECT SUPP.RECT RC PRN (17:13)
[2016-07-04 20:08] VITALS: BP 123/79
[2016-07-04] MEDS: MONTELUKAST SODIUM (10MG) 10 MG TABLET PO SCH (21:24)
[2016-07-04] MEDS: TEMAZEPAM 15 MG CAPSULE PO SCH (21:24)
[2016-07-04] MEDS: GABAPENTIN 100 MG CAPSULE PO SCH (21:24)
[2016-07-04] MEDS: INSULIN DETEMIR 100 UNIT/ML CARTRIDGE SQ SCH (21:25)
[2016-07-04] MEDS: NAPROXEN 500 MG TABLET PO PRN (22:12)
[2016-07-05] MEDS: IPRATROPIUM NEB FS 0.5 MG/2.5 ML AMPUL.NEB IH SCH ×4 (01:52→19:48)
[2016-07-05] MEDS: ALBUTEROL FS 2.5 MG/3 ML VIAL.NEB NEB SCH ×4 (01:52→19:48)
[2016-07-05] MEDS: PANTOPRAZOLE 40 MG TABLET.DR PO SCH (06:26)
[2016-07-05] MEDS: BLOOD SUGAR DIAGNOSTIC 1 EACH STRIP VI SCH ×4 (06:55→21:55)
[2016-07-05] MEDS: INSULIN LISPRO/ASPART 100 UNIT/ML CARTRIDGE SQ PRN ×3 (06:56→21:56)
[2016-07-05 07:52] VITALS: BP 121/83
[2016-07-05] MEDS: POLYVINYL ALCOHOL 15 ML BOTTLE EACHEYE SCH ×4 (08:46→21:52)
[2016-07-05] MEDS: DOCUSATE SODIUM 100 MG CAPSULE PO SCH (08:46)
[2016-07-05] MEDS: SITAGLIPTIN PHOSPHATE 25 MG TABLET PO SCH (08:46)
[2016-07-05] MEDS: SERTRALINE HCL 25 MG TABLET PO SCH (08:47)
[2016-07-05] MEDS: VIT B CMPLX 3/FA/VIT C/BIOTIN 1 TAB TABLET PO SCH (08:47)
[2016-07-05] MEDS: PROSOURCE / PROSTAT (PYXIS) 30 ML UDC PO SCH ×3 (08:47→17:00)
[2016-07-05] MEDS: HEPARIN SODIUM, PORCINE 5000 UNITS/1 ML VIAL SQ SCH ×2 (08:47→21:52)
[2016-07-05] MEDS: RENAL NOVASOURCE (8OZ) 1 EA BOX PO SCH (08:47)
[2016-07-05] MEDS: ASCORBIC ACID 500 MG TABLET PO SCH (08:47)
[2016-07-05] MEDS: GUAIFENESIN/D-METHORPHAN HB 5 ML UDC PO PRN ×2 (08:48→21:55)
[2016-07-05] MEDS: ATARAX 25 MG PO PRN ×2 (08:48→21:55)
[2016-07-05] MEDS: ACETAMINOPHEN 650 MG/20 ML UDC- FOR SA PATIENTS ONLY PO PRN (08:49)
[2016-07-05] MEDS: BUDESONIDE RESPULE INH 0.5 MG/2 ML AMPUL.NEB IH SCH ×2 (09:46→19:48)
[2016-07-05] MEDS: MINERAL OIL/PETROL OINT 396 GM JAR TP SCH ×2 (16:00→21:52)
[2016-07-05] MEDS: HYDROGEN PEROXIDE 480 ML BOTTLE TP SCH ×2 (16:00→21:53)
[2016-07-05] MEDS: ZINC OXIDE 56.7 GM TUBE TP SCH ×2 (16:00→21:54)
[2016-07-05 19:30] VITALS: BP 143/91
[2016-07-05] MEDS: MONTELUKAST SODIUM (10MG) 10 MG TABLET PO SCH (21:54)
[2016-07-05] MEDS: TEMAZEPAM 15 MG CAPSULE PO SCH (21:54)
[2016-07-05] MEDS: GABAPENTIN 100 MG CAPSULE PO SCH (21:54)
[2016-07-05] MEDS: INSULIN DETEMIR 100 UNIT/ML CARTRIDGE SQ SCH (21:55)
[2016-07-06] MEDS: ALBUTEROL FS 2.5 MG/3 ML VIAL.NEB NEB SCH ×4 (01:53→19:36)
[2016-07-06] MEDS: IPRATROPIUM NEB FS 0.5 MG/2.5 ML AMPUL.NEB IH SCH ×4 (01:53→19:36)
[2016-07-06] MEDS: PANTOPRAZOLE 40 MG TABLET.DR PO SCH (05:44)
[2016-07-06] MEDS: INSULIN LISPRO/ASPART 100 UNIT/ML CARTRIDGE SQ PRN ×2 (06:48→17:18)
[2016-07-06] MEDS: BLOOD SUGAR DIAGNOSTIC 1 EACH STRIP VI SCH ×4 (06:48→21:11)
[2016-07-06] MEDS: BUDESONIDE RESPULE INH 0.5 MG/2 ML AMPUL.NEB IH SCH ×2 (08:00→21:09)
[2016-07-06 08:03] VITALS: BP 131/85
[2016-07-06] MEDS: RENAL NOVASOURCE (8OZ) 1 EA BOX PO SCH (08:13)
[2016-07-06] MEDS: ASCORBIC ACID 500 MG TABLET PO SCH (08:13)
[2016-07-06] MEDS: PROSOURCE / PROSTAT (PYXIS) 30 ML UDC PO SCH ×3 (08:13→17:16)
[2016-07-06] MEDS: SERTRALINE HCL 25 MG TABLET PO SCH (08:13)
[2016-07-06] MEDS: VIT B CMPLX 3/FA/VIT C/BIOTIN 1 TAB TABLET PO SCH (08:13)
[2016-07-06] MEDS: POLYVINYL ALCOHOL 15 ML BOTTLE EACHEYE SCH ×4 (08:13→21:10)
[2016-07-06] MEDS: DOCUSATE SODIUM 100 MG CAPSULE PO SCH (08:13)
[2016-07-06] MEDS: SITAGLIPTIN PHOSPHATE 25 MG TABLET PO SCH (08:13)
[2016-07-06] MEDS: MINERAL OIL/PETROL OINT 396 GM JAR TP SCH ×2 (08:14→20:02)
[2016-07-06] MEDS: HEPARIN SODIUM, PORCINE 5000 UNITS/1 ML VIAL SQ SCH ×2 (08:14→20:02)
[2016-07-06] MEDS: ATARAX 25 MG PO PRN ×3 (08:30→20:05)
[2016-07-06] MEDS: ACETAMINOPHEN 650 MG/20 ML UDC- FOR SA PATIENTS ONLY PO PRN ×2 (08:30→14:28)
[2016-07-06] MEDS: GUAIFENESIN/D-METHORPHAN HB 5 ML UDC PO PRN ×3 (08:30→20:05)
[2016-07-06] MEDS: HYDROGEN PEROXIDE 480 ML BOTTLE TP SCH ×2 (14:00→20:02)
[2016-07-06] MEDS: ZINC OXIDE 56.7 GM TUBE TP SCH ×2 (14:00→20:02)
[2016-07-06] MEDS: BISACODYL SUPP (10 MG) 10 MG/SUPP.RECT SUPP.RECT RC PRN (14:26)
[2016-07-06] MEDS: NAPROXEN 500 MG TABLET PO PRN (14:26)
[2016-07-06] MEDS: MAG HYDROX/AL HYDROX/SIMETH 30 ML UDC PO PRN (18:46)
[2016-07-06 21:06] VITALS: BP 145/91
[2016-07-06] MEDS: MONTELUKAST SODIUM (10MG) 10 MG TABLET PO SCH (21:10)
[2016-07-06] MEDS: GABAPENTIN 100 MG CAPSULE PO SCH (21:10)
[2016-07-06] MEDS: TEMAZEPAM 15 MG CAPSULE PO SCH (21:10)
[2016-07-06] MEDS: INSULIN DETEMIR 100 UNIT/ML CARTRIDGE SQ SCH (21:11)
[2016-07-07] MEDS: IPRATROPIUM NEB FS 0.5 MG/2.5 ML AMPUL.NEB IH SCH ×4 (01:58→20:09)
[2016-07-07] MEDS: ALBUTEROL FS 2.5 MG/3 ML VIAL.NEB NEB SCH ×4 (01:58→20:09)
[2016-07-07] MEDS: PANTOPRAZOLE 40 MG TABLET.DR PO SCH (06:05)
[2016-07-07] MEDS: BLOOD SUGAR DIAGNOSTIC 1 EACH STRIP VI SCH ×4 (07:30→21:13)
[2016-07-07 07:40] VITALS: BP 129/85
[2016-07-07] MEDS: SITAGLIPTIN PHOSPHATE 25 MG TABLET PO SCH (08:32)
[2016-07-07] MEDS: VIT B CMPLX 3/FA/VIT C/BIOTIN 1 TAB TABLET PO SCH (08:32)
[2016-07-07] MEDS: POLYVINYL ALCOHOL 15 ML BOTTLE EACHEYE SCH ×4 (08:32→21:10)
[2016-07-07] MEDS: DOCUSATE SODIUM 100 MG CAPSULE PO SCH (08:32)
[2016-07-07] MEDS: PROSOURCE / PROSTAT (PYXIS) 30 ML UDC PO SCH ×3 (08:33→17:25)
[2016-07-07] MEDS: RENAL NOVASOURCE (8OZ) 1 EA BOX PO SCH (08:33)
[2016-07-07] MEDS: HYDROGEN PEROXIDE 480 ML BOTTLE TP SCH ×2 (08:33→21:11)
[2016-07-07] MEDS: SERTRALINE HCL 25 MG TABLET PO SCH (08:33)
[2016-07-07] MEDS: MINERAL OIL/PETROL OINT 396 GM JAR TP SCH ×2 (08:33→21:11)
[2016-07-07] MEDS: ZINC OXIDE 56.7 GM TUBE TP SCH ×2 (08:33→21:11)
[2016-07-07] MEDS: HEPARIN SODIUM, PORCINE 5000 UNITS/1 ML VIAL SQ SCH ×2 (08:33→21:11)
[2016-07-07] MEDS: ASCORBIC ACID 500 MG TABLET PO SCH (08:33)
[2016-07-07] MEDS: NAPROXEN 500 MG TABLET PO PRN ×2 (09:00→21:16)
[2016-07-07] MEDS: GUAIFENESIN/D-METHORPHAN HB 5 ML UDC PO PRN ×2 (09:00→21:16)
[2016-07-07] MEDS: BUDESONIDE RESPULE INH 0.5 MG/2 ML AMPUL.NEB IH SCH ×2 (09:19→20:09)
[2016-07-07] MEDS: ATARAX 25 MG PO PRN ×2 (09:32→21:16)
[2016-07-07] MEDS: INSULIN LISPRO/ASPART 100 UNIT/ML CARTRIDGE SQ PRN ×3 (11:38→21:15)
[2016-07-07 20:00] VITALS: BP 146/92
[2016-07-07] MEDS: GABAPENTIN 100 MG CAPSULE PO SCH (21:11)
[2016-07-07] MEDS: TEMAZEPAM 15 MG CAPSULE PO SCH (21:12)
[2016-07-07] MEDS: MONTELUKAST SODIUM (10MG) 10 MG TABLET PO SCH (21:12)
[2016-07-07] MEDS: INSULIN DETEMIR 100 UNIT/ML CARTRIDGE SQ SCH (21:13)
[2016-07-08] MEDS: IPRATROPIUM NEB FS 0.5 MG/2.5 ML AMPUL.NEB IH SCH ×3 (00:38→12:54)
[2016-07-08] MEDS: ALBUTEROL FS 2.5 MG/3 ML VIAL.NEB NEB SCH ×6 (00:38→23:27)
[2016-07-08] MEDS: BLOOD SUGAR DIAGNOSTIC 1 EACH STRIP VI SCH ×4 (06:48→20:53)
[2016-07-08] MEDS: PANTOPRAZOLE 40 MG TABLET.DR PO SCH (06:48)
[2016-07-08] MEDS: BUDESONIDE RESPULE INH 0.5 MG/2 ML AMPUL.NEB IH SCH ×2 (08:19→20:14)
[2016-07-08 08:26] VITALS: BP 124/76
[2016-07-08] MEDS: VIT B CMPLX 3/FA/VIT C/BIOTIN 1 TAB TABLET PO SCH (08:39)
[2016-07-08] MEDS: HEPARIN SODIUM, PORCINE 5000 UNITS/1 ML VIAL SQ SCH ×2 (08:39→20:54)
[2016-07-08] MEDS: SERTRALINE HCL 25 MG TABLET PO SCH (08:39)
[2016-07-08] MEDS: DOCUSATE SODIUM 100 MG CAPSULE PO SCH (08:39)
[2016-07-08] MEDS: PROSOURCE / PROSTAT (PYXIS) 30 ML UDC PO SCH ×3 (08:39→17:00)
[2016-07-08] MEDS: SITAGLIPTIN PHOSPHATE 25 MG TABLET PO SCH (08:39)
[2016-07-08] MEDS: GUAIFENESIN/D-METHORPHAN HB 5 ML UDC PO PRN (08:39)
[2016-07-08] MEDS: POLYVINYL ALCOHOL 15 ML BOTTLE EACHEYE SCH ×4 (08:39→21:27)
[2016-07-08] MEDS: ASCORBIC ACID 500 MG TABLET PO SCH (08:39)
[2016-07-08] MEDS: RENAL NOVASOURCE (8OZ) 1 EA BOX PO SCH (08:39)
[2016-07-08] MEDS: MINERAL OIL/PETROL OINT 396 GM JAR TP SCH ×2 (09:00→21:27)
[2016-07-08] MEDS: HYDROGEN PEROXIDE 480 ML BOTTLE TP SCH ×2 (09:00→21:27)
[2016-07-08] MEDS: ZINC OXIDE 56.7 GM TUBE TP SCH ×2 (09:00→21:27)
[2016-07-08] MEDS: ACETYLCYSTEINE 10% 3,000 MG/30 ML VIAL IH SCH (09:30)
[2016-07-08] MEDS: INSULIN LISPRO/ASPART 100 UNIT/ML CARTRIDGE SQ PRN ×2 (12:54→18:04)
--- NOTE | 2016-07-08 13:17 | NUR ---
Seen by ARNOL Petty. He verbalized that he is having a hard time breathing. ARNOL Petty examined pt and ordered to give Mucomyst 10% 3 mL via nebulizer BID for 5 days, increase frequency of Albuterol and Atrovent to q 4 hours for 5 days then resume to q 6 hours. She also ordered to give Albuterol and Atrovent q 4 hours PRN for SOB or wheezing. Pt aware of new orders.
[2016-07-08] MEDS ORDERED: IPRATROPIUM NEB FS 0.5 MG/2.5 ML AMPUL.NEB IH SCH (13:30)
[2016-07-08] MEDS ORDERED: IPRATROPIUM NEB FS 0.5 MG/2.5 ML AMPUL.NEB NEB PRN (13:30)
[2016-07-08] MEDS ORDERED: ALBUTEROL FS 2.5 MG/3 ML VIAL.NEB NEB PRN (13:30)
[2016-07-08] MEDS: IPRATROPIUM NEB FS 0.5 MG/2.5 ML AMPUL.NEB NEB SCH ×3 (15:30→23:27)
--- NOTE | 2016-07-08 15:30 | NUR ---
RT HHN TX NOT GIVEN, TOO CLOSE TO LAST ADMINISTRATION. PT IS AWAKE AND ALERT WITH NO SIGNS OF SOB OR RESPIRATORY DISTRESS, WILL CONTINUE TO MONITOR.
[2016-07-08 20:13] VITALS: BP 143/96
[2016-07-08] MEDS: GABAPENTIN 100 MG CAPSULE PO SCH (21:27)
[2016-07-08] MEDS: INSULIN DETEMIR 100 UNIT/ML CARTRIDGE SQ SCH (21:28)
[2016-07-08] MEDS: MONTELUKAST SODIUM (10MG) 10 MG TABLET PO SCH (21:28)
[2016-07-08] MEDS: TEMAZEPAM 15 MG CAPSULE PO SCH (21:28)
[2016-07-08] MEDS: TRAMADOL HCL 50 MG TABLET PO PRN (23:20)
[2016-07-09] MEDS: ALBUTEROL FS 2.5 MG/3 ML VIAL.NEB NEB SCH ×6 (02:29→22:38)
[2016-07-09] MEDS: IPRATROPIUM NEB FS 0.5 MG/2.5 ML AMPUL.NEB NEB SCH ×6 (02:29→22:38)
[2016-07-09] MEDS: PANTOPRAZOLE 40 MG TABLET.DR PO SCH (06:06)
[2016-07-09 07:41] VITALS: BP 110/81
[2016-07-09] MEDS: BLOOD SUGAR DIAGNOSTIC 1 EACH STRIP VI SCH ×4 (08:06→21:26)
[2016-07-09] MEDS: INSULIN LISPRO/ASPART 100 UNIT/ML CARTRIDGE SQ PRN ×2 (08:07→17:32)
[2016-07-09] MEDS: DOCUSATE SODIUM 100 MG CAPSULE PO SCH (08:55)
[2016-07-09] MEDS: ERGOCALCIFEROL (VITAMIN D 2) 50,000 UNIT CAPSULE PO SCH (08:55)
[2016-07-09] MEDS: ASCORBIC ACID 500 MG TABLET PO SCH (08:55)
[2016-07-09] MEDS: RENAL NOVASOURCE (8OZ) 1 EA BOX PO SCH (08:55)
[2016-07-09] MEDS: SERTRALINE HCL 25 MG TABLET PO SCH (08:55)
[2016-07-09] MEDS: SITAGLIPTIN PHOSPHATE 25 MG TABLET PO SCH (08:55)
[2016-07-09] MEDS: PROSOURCE / PROSTAT (PYXIS) 30 ML UDC PO SCH ×3 (08:55→17:31)
[2016-07-09] MEDS: VIT B CMPLX 3/FA/VIT C/BIOTIN 1 TAB TABLET PO SCH (08:55)
[2016-07-09] MEDS: POLYVINYL ALCOHOL 15 ML BOTTLE EACHEYE SCH ×4 (08:55→20:08)
[2016-07-09] MEDS: HYDROGEN PEROXIDE 480 ML BOTTLE TP SCH ×2 (08:56→20:09)
[2016-07-09] MEDS: ZINC OXIDE 56.7 GM TUBE TP SCH ×2 (08:56→20:09)
[2016-07-09] MEDS: HEPARIN SODIUM, PORCINE 5000 UNITS/1 ML VIAL SQ SCH ×2 (08:56→20:09)
[2016-07-09] MEDS: MINERAL OIL/PETROL OINT 396 GM JAR TP SCH ×2 (08:56→20:09)
[2016-07-09] MEDS: BUDESONIDE RESPULE INH 0.5 MG/2 ML AMPUL.NEB IH SCH ×2 (09:30→20:08)
[2016-07-09] MEDS: ACETYLCYSTEINE 10% 3,000 MG/30 ML VIAL IH SCH ×2 (09:30→17:26)
[2016-07-09] MEDS: GUAIFENESIN/D-METHORPHAN HB 5 ML UDC PO PRN ×2 (09:59→20:12)
[2016-07-09 20:12] VITALS: BP 131/81
[2016-07-09] MEDS: NAPROXEN 500 MG TABLET PO PRN (20:12)
[2016-07-09] MEDS: ATARAX 25 MG PO PRN (21:00)
[2016-07-09] MEDS: GABAPENTIN 100 MG CAPSULE PO SCH (21:25)
[2016-07-09] MEDS: MONTELUKAST SODIUM (10MG) 10 MG TABLET PO SCH (21:26)
[2016-07-09] MEDS: TEMAZEPAM 15 MG CAPSULE PO SCH (21:26)
[2016-07-09] MEDS: INSULIN DETEMIR 100 UNIT/ML CARTRIDGE SQ SCH (21:26)
[2016-07-10] MEDS: GUAIFENESIN/D-METHORPHAN HB 5 ML UDC PO PRN ×4 (01:00→20:53)
[2016-07-10] MEDS: ATARAX 25 MG PO PRN ×3 (01:29→20:53)
[2016-07-10] MEDS: ALBUTEROL FS 2.5 MG/3 ML VIAL.NEB NEB SCH ×6 (02:33→23:30)
[2016-07-10] MEDS: IPRATROPIUM NEB FS 0.5 MG/2.5 ML AMPUL.NEB NEB SCH ×6 (02:33→23:30)
[2016-07-10] MEDS: PANTOPRAZOLE 40 MG TABLET.DR PO SCH (06:14)
[2016-07-10] MEDS: ACETYLCYSTEINE 10% 3,000 MG/30 ML VIAL IH SCH ×2 (07:34→17:09)
[2016-07-10] MEDS: BUDESONIDE RESPULE INH 0.5 MG/2 ML AMPUL.NEB IH SCH ×2 (07:34→19:53)
[2016-07-10 07:43] VITALS: BP 141/89
[2016-07-10] MEDS: BLOOD SUGAR DIAGNOSTIC 1 EACH STRIP VI SCH ×4 (07:51→21:27)
[2016-07-10] MEDS: DOCUSATE SODIUM 100 MG CAPSULE PO SCH (08:07)
[2016-07-10] MEDS: VIT B CMPLX 3/FA/VIT C/BIOTIN 1 TAB TABLET PO SCH (08:07)
[2016-07-10] MEDS: PROSOURCE / PROSTAT (PYXIS) 30 ML UDC PO SCH ×3 (08:07→17:00)
[2016-07-10] MEDS: ASCORBIC ACID 500 MG TABLET PO SCH (08:07)
[2016-07-10] MEDS: HEPARIN SODIUM, PORCINE 5000 UNITS/1 ML VIAL SQ SCH ×2 (08:07→20:52)
[2016-07-10] MEDS: RENAL NOVASOURCE (8OZ) 1 EA BOX PO SCH (08:07)
[2016-07-10] MEDS: SERTRALINE HCL 25 MG TABLET PO SCH (08:07)
[2016-07-10] MEDS: POLYVINYL ALCOHOL 15 ML BOTTLE EACHEYE SCH ×4 (08:07→20:52)
[2016-07-10] MEDS: SITAGLIPTIN PHOSPHATE 25 MG TABLET PO SCH (08:07)
--- NOTE | 2016-07-10 08:26 | NUR ---
07/10/16 @ 0720 BS checked per MD's order with 55mg/dl, no S/S of hypoglycemia, pt encouraged to eat his breakfast, noted ate 100 and had 8oz of orange juice. Charge Nurse made aware. @ 0822 rechecked BS with 110mg/dl result. Charge Nurse updated of result.
[2016-07-10] MEDS: MINERAL OIL/PETROL OINT 396 GM JAR TP SCH ×2 (08:39→20:52)
[2016-07-10] MEDS: NAPROXEN 500 MG TABLET PO PRN (08:39)
[2016-07-10] MEDS: BISACODYL SUPP (10 MG) 10 MG/SUPP.RECT SUPP.RECT RC PRN (08:40)
[2016-07-10] MEDS: HYDROGEN PEROXIDE 480 ML BOTTLE TP SCH ×2 (10:15→20:52)
[2016-07-10] MEDS: ZINC OXIDE 56.7 GM TUBE TP SCH ×2 (10:15→20:52)
[2016-07-10] MEDS: INSULIN LISPRO/ASPART 100 UNIT/ML CARTRIDGE SQ PRN ×2 (12:53→21:28)
--- NOTE | 2016-07-10 18:46 | NUR ---
@1720 BS checked ac meal per MD's order, result 40 mg/dl, asymptomatic for hypoglycemia but verbalized that he does not feel well but can't specify exactly what he meant of not felling well. Encouraged to consume his dinner, noted ate 100% of sandwich and took 8oz of orange juice. @ 1757 rechecked BS with 72 mg/dl, pt stated that he feels better. Charge Nurse updated as the DON was taking in place.
[2016-07-10 20:25] VITALS: BP 131/89
[2016-07-10] MEDS: TEMAZEPAM 15 MG CAPSULE PO SCH (21:26)
[2016-07-10] MEDS: MONTELUKAST SODIUM (10MG) 10 MG TABLET PO SCH (21:26)
[2016-07-10] MEDS: GABAPENTIN 100 MG CAPSULE PO SCH (21:26)
[2016-07-10] MEDS: INSULIN DETEMIR 100 UNIT/ML CARTRIDGE SQ SCH (21:27)
[2016-07-11] MEDS: TRAMADOL HCL 50 MG TABLET PO PRN (01:07)
[2016-07-11] MEDS: IPRATROPIUM NEB FS 0.5 MG/2.5 ML AMPUL.NEB NEB SCH ×6 (04:26→22:59)
[2016-07-11] MEDS: ALBUTEROL FS 2.5 MG/3 ML VIAL.NEB NEB SCH ×6 (04:26→22:59)
[2016-07-11] MEDS: PANTOPRAZOLE 40 MG TABLET.DR PO SCH (05:34)
[2016-07-11] MEDS: NAPROXEN 500 MG TABLET PO PRN ×2 (05:34→20:48)
[2016-07-11] MEDS: BLOOD SUGAR DIAGNOSTIC 1 EACH STRIP VI SCH ×4 (06:55→21:24)
[2016-07-11] MEDS: INSULIN LISPRO/ASPART 100 UNIT/ML CARTRIDGE SQ PRN ×3 (06:55→21:25)
[2016-07-11 08:00] VITALS: BP 121/91
[2016-07-11] MEDS: ACETYLCYSTEINE 10% 3,000 MG/30 ML VIAL IH SCH ×2 (08:10→16:07)
[2016-07-11] MEDS: POLYVINYL ALCOHOL 15 ML BOTTLE EACHEYE SCH ×4 (09:00→20:46)
[2016-07-11] MEDS: BUDESONIDE RESPULE INH 0.5 MG/2 ML AMPUL.NEB IH SCH ×2 (09:02→20:36)
[2016-07-11] MEDS: VIT B CMPLX 3/FA/VIT C/BIOTIN 1 TAB TABLET PO SCH (09:16)
[2016-07-11] MEDS: SITAGLIPTIN PHOSPHATE 25 MG TABLET PO SCH (09:16)
[2016-07-11] MEDS: DOCUSATE SODIUM 100 MG CAPSULE PO SCH (09:16)
[2016-07-11] MEDS: PROSOURCE / PROSTAT (PYXIS) 30 ML UDC PO SCH ×3 (09:17→16:38)
[2016-07-11] MEDS: HEPARIN SODIUM, PORCINE 5000 UNITS/1 ML VIAL SQ SCH ×2 (09:17→20:46)
[2016-07-11] MEDS: ASCORBIC ACID 500 MG TABLET PO SCH (09:17)
[2016-07-11] MEDS: SERTRALINE HCL 25 MG TABLET PO SCH (09:17)
[2016-07-11] MEDS: MINERAL OIL/PETROL OINT 396 GM JAR TP SCH ×2 (09:17→20:47)
[2016-07-11] MEDS: RENAL NOVASOURCE (8OZ) 1 EA BOX PO SCH (09:17)
[2016-07-11] MEDS: HYDROGEN PEROXIDE 480 ML BOTTLE TP SCH ×2 (09:17→20:47)
[2016-07-11] MEDS: ZINC OXIDE 56.7 GM TUBE TP SCH ×2 (09:27→20:47)
[2016-07-11] MEDS: GUAIFENESIN/D-METHORPHAN HB 5 ML UDC PO PRN ×2 (09:27→20:48)
[2016-07-11] MEDS: ATARAX 25 MG PO PRN (16:39)
[2016-07-11] MEDS: TEMAZEPAM 15 MG CAPSULE PO SCH (21:24)
[2016-07-11] MEDS: INSULIN DETEMIR 100 UNIT/ML CARTRIDGE SQ SCH (21:24)
[2016-07-11] MEDS: MONTELUKAST SODIUM (10MG) 10 MG TABLET PO SCH (21:24)
[2016-07-11] MEDS: GABAPENTIN 100 MG CAPSULE PO SCH (21:24)
[2016-07-11 21:29] VITALS: BP 135/94
[2016-07-12] MEDS: ALBUTEROL FS 2.5 MG/3 ML VIAL.NEB NEB SCH ×6 (02:35→23:45)
[2016-07-12] MEDS: IPRATROPIUM NEB FS 0.5 MG/2.5 ML AMPUL.NEB NEB SCH ×6 (02:35→23:45)
[2016-07-12] MEDS: PANTOPRAZOLE 40 MG TABLET.DR PO SCH (05:11)
[2016-07-12] MEDS: BLOOD SUGAR DIAGNOSTIC 1 EACH STRIP VI SCH ×4 (06:48→21:42)
[2016-07-12] MEDS: INSULIN LISPRO/ASPART 100 UNIT/ML CARTRIDGE SQ PRN ×2 (06:49→12:49)
[2016-07-12 07:59] VITALS: BP 134/88
[2016-07-12] MEDS: BUDESONIDE RESPULE INH 0.5 MG/2 ML AMPUL.NEB IH SCH ×2 (08:29→20:19)
[2016-07-12] MEDS: ACETYLCYSTEINE 10% 3,000 MG/30 ML VIAL IH SCH ×2 (08:29→17:00)
[2016-07-12] MEDS: RENAL NOVASOURCE (8OZ) 1 EA BOX PO SCH (09:00)
[2016-07-12] MEDS ORDERED: FLUTICASONE PROPIONATE 16 GM BOTTLE NS SCH (09:00)
[2016-07-12] MEDS: SERTRALINE HCL 25 MG TABLET PO SCH (09:04)
[2016-07-12] MEDS: VIT B CMPLX 3/FA/VIT C/BIOTIN 1 TAB TABLET PO SCH (09:04)
[2016-07-12] MEDS: ASCORBIC ACID 500 MG TABLET PO SCH (09:04)
[2016-07-12] MEDS: SITAGLIPTIN PHOSPHATE 25 MG TABLET PO SCH (09:04)
[2016-07-12] MEDS: POLYVINYL ALCOHOL 15 ML BOTTLE EACHEYE SCH ×4 (09:04→20:30)
[2016-07-12] MEDS: DOCUSATE SODIUM 100 MG CAPSULE PO SCH (09:04)
[2016-07-12] MEDS: PROSOURCE / PROSTAT (PYXIS) 30 ML UDC PO SCH ×3 (09:04→17:30)
[2016-07-12] MEDS: MINERAL OIL/PETROL OINT 396 GM JAR TP SCH ×2 (09:05→20:12)
[2016-07-12] MEDS: HYDROGEN PEROXIDE 480 ML BOTTLE TP SCH ×2 (09:05→20:12)
[2016-07-12] MEDS: ZINC OXIDE 56.7 GM TUBE TP SCH ×2 (09:05→20:12)
[2016-07-12] MEDS: HEPARIN SODIUM, PORCINE 5000 UNITS/1 ML VIAL SQ SCH ×2 (09:05→20:12)
[2016-07-12] MEDS: GUAIFENESIN/D-METHORPHAN HB 5 ML UDC PO PRN ×2 (09:19→20:10)
--- NOTE | 2016-07-12 13:48 | NUR ---
Pt complaining of left ear tickling sensation again. Dr. South came to see him a couple of weeks ago but pt was at the dialysis center and he said he will come back to see pt. Called Dr. South's office and left a message with Rayne for Dr. South to see the pt.
[2016-07-12] MEDS: BISACODYL SUPP (10 MG) 10 MG/SUPP.RECT SUPP.RECT RC PRN (15:00)
[2016-07-12] MEDS: NAPROXEN 500 MG TABLET PO PRN (20:10)
[2016-07-12 21:12] VITALS: BP 146/90
[2016-07-12] MEDS: GABAPENTIN 100 MG CAPSULE PO SCH (21:41)
[2016-07-12] MEDS: MONTELUKAST SODIUM (10MG) 10 MG TABLET PO SCH (21:41)
[2016-07-12] MEDS: TEMAZEPAM 15 MG CAPSULE PO SCH (21:41)
[2016-07-12] MEDS: INSULIN DETEMIR 100 UNIT/ML CARTRIDGE SQ SCH (21:42)
[2016-07-13] MEDS: IPRATROPIUM NEB FS 0.5 MG/2.5 ML AMPUL.NEB IH SCH ×4 (02:28→20:01)
[2016-07-13] MEDS: ALBUTEROL FS 2.5 MG/3 ML VIAL.NEB NEB SCH ×4 (02:29→20:01)
[2016-07-13] MEDS: GUAIFENESIN/D-METHORPHAN HB 5 ML UDC PO PRN ×2 (02:41→16:01)
[2016-07-13] MEDS: PANTOPRAZOLE 40 MG TABLET.DR PO SCH (05:53)
[2016-07-13] MEDS: BLOOD SUGAR DIAGNOSTIC 1 EACH STRIP VI SCH ×4 (06:38→21:29)
[2016-07-13 08:02] VITALS: BP 134/87
[2016-07-13] MEDS: RENAL NOVASOURCE (8OZ) 1 EA BOX PO SCH (09:00)
[2016-07-13] MEDS: BUDESONIDE RESPULE INH 0.5 MG/2 ML AMPUL.NEB IH SCH ×2 (09:12→21:00)
[2016-07-13] MEDS: POLYVINYL ALCOHOL 15 ML BOTTLE EACHEYE SCH ×4 (09:15→20:04)
[2016-07-13] MEDS: SITAGLIPTIN PHOSPHATE 25 MG TABLET PO SCH (09:16)
[2016-07-13] MEDS: DOCUSATE SODIUM 100 MG CAPSULE PO SCH (09:16)
[2016-07-13] MEDS: VIT B CMPLX 3/FA/VIT C/BIOTIN 1 TAB TABLET PO SCH (09:16)
[2016-07-13] MEDS: FLUTICASONE PROPIONATE 16 GM BOTTLE NS SCH ×2 (09:16→17:01)
[2016-07-13] MEDS: MINERAL OIL/PETROL OINT 396 GM JAR TP SCH ×2 (09:17→20:04)
[2016-07-13] MEDS: HYDROGEN PEROXIDE 480 ML BOTTLE TP SCH ×2 (09:17→20:05)
[2016-07-13] MEDS: ZINC OXIDE 56.7 GM TUBE TP SCH ×2 (09:17→20:05)
[2016-07-13] MEDS: SERTRALINE HCL 25 MG TABLET PO SCH (09:17)
[2016-07-13] MEDS: ASCORBIC ACID 500 MG TABLET PO SCH (09:17)
[2016-07-13] MEDS: HEPARIN SODIUM, PORCINE 5000 UNITS/1 ML VIAL SQ SCH ×2 (09:17→20:04)
[2016-07-13] MEDS: PROSOURCE / PROSTAT (PYXIS) 30 ML UDC PO SCH ×3 (09:17→17:01)
[2016-07-13 20:03] VITALS: BP 143/96
[2016-07-13] MEDS: TEMAZEPAM 15 MG CAPSULE PO SCH (21:28)
[2016-07-13] MEDS: MONTELUKAST SODIUM (10MG) 10 MG TABLET PO SCH (21:28)
[2016-07-13] MEDS: GABAPENTIN 100 MG CAPSULE PO SCH (21:28)
[2016-07-13] MEDS: INSULIN LISPRO/ASPART 100 UNIT/ML CARTRIDGE SQ PRN (21:29)
[2016-07-13] MEDS: INSULIN DETEMIR 100 UNIT/ML CARTRIDGE SQ SCH (21:29)
[2016-07-14] MEDS: GUAIFENESIN/D-METHORPHAN HB 5 ML UDC PO PRN ×2 (00:14→21:28)
[2016-07-14] MEDS: ALBUTEROL FS 2.5 MG/3 ML VIAL.NEB NEB SCH ×4 (01:30→19:59)
[2016-07-14] MEDS: IPRATROPIUM NEB FS 0.5 MG/2.5 ML AMPUL.NEB IH SCH ×4 (01:30→19:59)
[2016-07-14] MEDS: PANTOPRAZOLE 40 MG TABLET.DR PO SCH (05:27)
[2016-07-14] MEDS: NAPROXEN 500 MG TABLET PO PRN (05:27)
[2016-07-14] MEDS: BLOOD SUGAR DIAGNOSTIC 1 EACH STRIP VI SCH ×4 (06:43→21:28)
[2016-07-14] MEDS: INSULIN LISPRO/ASPART 100 UNIT/ML CARTRIDGE SQ PRN ×2 (06:43→17:09)
[2016-07-14] MEDS: BUDESONIDE RESPULE INH 0.5 MG/2 ML AMPUL.NEB IH SCH ×2 (07:17→20:18)
[2016-07-14 08:16] VITALS: BP 144/88
[2016-07-14] MEDS: FLUTICASONE PROPIONATE 16 GM BOTTLE NS SCH ×2 (08:29→17:06)
[2016-07-14] MEDS: POLYVINYL ALCOHOL 15 ML BOTTLE EACHEYE SCH ×4 (08:29→21:26)
[2016-07-14] MEDS: DOCUSATE SODIUM 100 MG CAPSULE PO SCH (08:29)
[2016-07-14] MEDS: VIT B CMPLX 3/FA/VIT C/BIOTIN 1 TAB TABLET PO SCH (08:30)
[2016-07-14] MEDS: SERTRALINE HCL 25 MG TABLET PO SCH (08:30)
[2016-07-14] MEDS: RENAL NOVASOURCE (8OZ) 1 EA BOX PO SCH (08:30)
[2016-07-14] MEDS: PROSOURCE / PROSTAT (PYXIS) 30 ML UDC PO SCH ×3 (08:30→17:06)
[2016-07-14] MEDS: ASCORBIC ACID 500 MG TABLET PO SCH (08:30)
[2016-07-14] MEDS: SITAGLIPTIN PHOSPHATE 25 MG TABLET PO SCH (08:30)
[2016-07-14] MEDS: HEPARIN SODIUM, PORCINE 5000 UNITS/1 ML VIAL SQ SCH ×2 (08:33→21:27)
[2016-07-14] MEDS: ZINC OXIDE 56.7 GM TUBE TP SCH ×2 (09:00→21:27)
[2016-07-14] MEDS: MINERAL OIL/PETROL OINT 396 GM JAR TP SCH ×2 (09:00→21:27)
[2016-07-14] MEDS: HYDROGEN PEROXIDE 480 ML BOTTLE TP SCH ×2 (09:00→21:27)
[2016-07-14 20:11] VITALS: BP 138/96
[2016-07-14] MEDS: TEMAZEPAM 15 MG CAPSULE PO SCH (21:27)
[2016-07-14] MEDS: INSULIN DETEMIR 100 UNIT/ML CARTRIDGE SQ SCH (21:27)
[2016-07-14] MEDS: GABAPENTIN 100 MG CAPSULE PO SCH (21:27)
[2016-07-14] MEDS: MONTELUKAST SODIUM (10MG) 10 MG TABLET PO SCH (21:27)
[2016-07-15] MEDS: IPRATROPIUM NEB FS 0.5 MG/2.5 ML AMPUL.NEB IH SCH ×4 (01:13→20:04)
[2016-07-15] MEDS: ALBUTEROL FS 2.5 MG/3 ML VIAL.NEB NEB SCH ×4 (01:13→20:04)
[2016-07-15] MEDS: PANTOPRAZOLE 40 MG TABLET.DR PO SCH (06:44)
[2016-07-15] MEDS: BLOOD SUGAR DIAGNOSTIC 1 EACH STRIP VI SCH ×4 (06:44→21:10)
[2016-07-15 08:07] VITALS: BP 133/92
[2016-07-15] MEDS: SITAGLIPTIN PHOSPHATE 25 MG TABLET PO SCH (08:39)
[2016-07-15] MEDS: RENAL NOVASOURCE (8OZ) 1 EA BOX PO SCH (08:39)
[2016-07-15] MEDS: DOCUSATE SODIUM 100 MG CAPSULE PO SCH (08:39)
[2016-07-15] MEDS: POLYVINYL ALCOHOL 15 ML BOTTLE EACHEYE SCH ×4 (08:39→20:53)
[2016-07-15] MEDS: ASCORBIC ACID 500 MG TABLET PO SCH (08:39)
[2016-07-15] MEDS: VIT B CMPLX 3/FA/VIT C/BIOTIN 1 TAB TABLET PO SCH (08:39)
[2016-07-15] MEDS: FLUTICASONE PROPIONATE 16 GM BOTTLE NS SCH ×2 (08:39→17:31)
[2016-07-15] MEDS: PROSOURCE / PROSTAT (PYXIS) 30 ML UDC PO SCH ×3 (08:39→17:31)
[2016-07-15] MEDS: SERTRALINE HCL 25 MG TABLET PO SCH (08:39)
[2016-07-15] MEDS: HEPARIN SODIUM, PORCINE 5000 UNITS/1 ML VIAL SQ SCH ×2 (08:40→20:54)
[2016-07-15] MEDS: ZINC OXIDE 56.7 GM TUBE TP SCH ×2 (08:43→20:54)
[2016-07-15] MEDS: MINERAL OIL/PETROL OINT 396 GM JAR TP SCH ×2 (08:43→20:54)
[2016-07-15] MEDS: HYDROGEN PEROXIDE 480 ML BOTTLE TP SCH ×2 (08:43→20:54)
[2016-07-15] MEDS: BISACODYL SUPP (10 MG) 10 MG/SUPP.RECT SUPP.RECT RC PRN (08:44)
[2016-07-15] MEDS: GUAIFENESIN/D-METHORPHAN HB 5 ML UDC PO PRN ×2 (08:44→21:10)
[2016-07-15] MEDS: BUDESONIDE RESPULE INH 0.5 MG/2 ML AMPUL.NEB IH SCH ×2 (08:53→20:04)
[2016-07-15] MEDS: INSULIN LISPRO/ASPART 100 UNIT/ML CARTRIDGE SQ PRN ×2 (13:38→18:03)
--- NOTE | 2016-07-15 14:00 | NUR ---
Pt seen by Dr. South due to pt's complaint of left ear tickling sensation. Received order to instill Cortisporin ear drops.
[2016-07-15] MEDS ORDERED: NEOM/POLY B SULF/HC OTIC SUSP 10 ML BOTTLE LEFT EAR SCH ×2 (17:00→18:30)
--- NOTE | 2016-07-15 19:12 | NUR ---
MEDICATION cortisporin otic suspension 5 drops instilled on left ear d/t/ tickling sensation.
[2016-07-15] MEDS: NEOM/POLY B SULF/HC OTIC SUSP 10 ML BOTTLE LEFT EAR SCH (19:29)
[2016-07-15 20:44] VITALS: BP 132/87
[2016-07-15] MEDS: GABAPENTIN 100 MG CAPSULE PO SCH (21:09)
[2016-07-15] MEDS: TEMAZEPAM 15 MG CAPSULE PO SCH (21:09)
[2016-07-15] MEDS: MONTELUKAST SODIUM (10MG) 10 MG TABLET PO SCH (21:10)
[2016-07-15] MEDS: INSULIN DETEMIR 100 UNIT/ML CARTRIDGE SQ SCH (21:10)
[2016-07-16] MEDS: IPRATROPIUM NEB FS 0.5 MG/2.5 ML AMPUL.NEB IH SCH ×4 (02:26→19:30)
[2016-07-16] MEDS: ALBUTEROL FS 2.5 MG/3 ML VIAL.NEB NEB SCH ×4 (02:26→19:30)
[2016-07-16] MEDS: PANTOPRAZOLE 40 MG TABLET.DR PO SCH (05:50)
[2016-07-16] MEDS: GUAIFENESIN/D-METHORPHAN HB 5 ML UDC PO PRN (07:02)
[2016-07-16] MEDS: BUDESONIDE RESPULE INH 0.5 MG/2 ML AMPUL.NEB IH SCH ×2 (07:17→21:00)
[2016-07-16] MEDS: BLOOD SUGAR DIAGNOSTIC 1 EACH STRIP VI SCH ×4 (08:04→21:18)
[2016-07-16] MEDS: INSULIN LISPRO/ASPART 100 UNIT/ML CARTRIDGE SQ PRN ×2 (08:05→17:39)
[2016-07-16] MEDS: DOCUSATE SODIUM 100 MG CAPSULE PO SCH (08:06)
[2016-07-16] MEDS: FLUTICASONE PROPIONATE 16 GM BOTTLE NS SCH ×2 (08:06→17:38)
[2016-07-16] MEDS: NEOM/POLY B SULF/HC OTIC SUSP 10 ML BOTTLE LEFT EAR SCH ×3 (08:06→17:38)
[2016-07-16] MEDS: ERGOCALCIFEROL (VITAMIN D 2) 50,000 UNIT CAPSULE PO SCH (08:06)
[2016-07-16] MEDS: POLYVINYL ALCOHOL 15 ML BOTTLE EACHEYE SCH ×4 (08:06→21:17)
[2016-07-16] MEDS: SERTRALINE HCL 25 MG TABLET PO SCH (08:07)
[2016-07-16] MEDS: RENAL NOVASOURCE (8OZ) 1 EA BOX PO SCH (08:07)
[2016-07-16] MEDS: SITAGLIPTIN PHOSPHATE 25 MG TABLET PO SCH (08:07)
[2016-07-16] MEDS: PROSOURCE / PROSTAT (PYXIS) 30 ML UDC PO SCH ×3 (08:07→17:38)
[2016-07-16] MEDS: VIT B CMPLX 3/FA/VIT C/BIOTIN 1 TAB TABLET PO SCH (08:07)
[2016-07-16] MEDS: ASCORBIC ACID 500 MG TABLET PO SCH (08:07)
[2016-07-16] MEDS: HEPARIN SODIUM, PORCINE 5000 UNITS/1 ML VIAL SQ SCH ×2 (08:08→21:17)
[2016-07-16] MEDS: MINERAL OIL/PETROL OINT 396 GM JAR TP SCH ×2 (08:08→21:17)
[2016-07-16 08:16] VITALS: BP 131/78
[2016-07-16] MEDS: ZINC OXIDE 56.7 GM TUBE TP SCH ×2 (09:00→21:17)
[2016-07-16] MEDS: HYDROGEN PEROXIDE 480 ML BOTTLE TP SCH ×2 (09:00→21:17)
--- NOTE | 2016-07-16 10:00 | NUR ---
PATIENT WAS PICKED UP BY TRANSPORT TEAM AND TAKEN OFF SITE TO DIALYSIS
[2016-07-16 20:42] VITALS: BP 137/83
[2016-07-16] MEDS: GABAPENTIN 100 MG CAPSULE PO SCH (21:17)
[2016-07-16] MEDS: TEMAZEPAM 15 MG CAPSULE PO SCH (21:17)
[2016-07-16] MEDS: MONTELUKAST SODIUM (10MG) 10 MG TABLET PO SCH (21:17)
[2016-07-16] MEDS: INSULIN DETEMIR 100 UNIT/ML CARTRIDGE SQ SCH (21:18)
[2016-07-17] MEDS: IPRATROPIUM NEB FS 0.5 MG/2.5 ML AMPUL.NEB IH SCH ×4 (02:12→19:52)
[2016-07-17] MEDS: ALBUTEROL FS 2.5 MG/3 ML VIAL.NEB NEB SCH ×4 (02:12→19:52)
[2016-07-17] MEDS: PANTOPRAZOLE 40 MG TABLET.DR PO SCH (05:58)
[2016-07-17] MEDS: BLOOD SUGAR DIAGNOSTIC 1 EACH STRIP VI SCH ×4 (07:37→21:13)
[2016-07-17] MEDS: INSULIN LISPRO/ASPART 100 UNIT/ML CARTRIDGE SQ PRN ×3 (07:41→17:36)
[2016-07-17] MEDS: BUDESONIDE RESPULE INH 0.5 MG/2 ML AMPUL.NEB IH SCH ×2 (07:52→20:32)
[2016-07-17 07:58] VITALS: BP 141/99
[2016-07-17] MEDS: VIT B CMPLX 3/FA/VIT C/BIOTIN 1 TAB TABLET PO SCH (08:02)
[2016-07-17] MEDS: SITAGLIPTIN PHOSPHATE 25 MG TABLET PO SCH (08:02)
[2016-07-17] MEDS: SERTRALINE HCL 25 MG TABLET PO SCH (08:02)
[2016-07-17] MEDS: RENAL NOVASOURCE (8OZ) 1 EA BOX PO SCH (08:02)
[2016-07-17] MEDS: NEOM/POLY B SULF/HC OTIC SUSP 10 ML BOTTLE LEFT EAR SCH ×3 (08:02→17:36)
[2016-07-17] MEDS: FLUTICASONE PROPIONATE 16 GM BOTTLE NS SCH ×2 (08:02→17:36)
[2016-07-17] MEDS: ASCORBIC ACID 500 MG TABLET PO SCH (08:02)
[2016-07-17] MEDS: POLYVINYL ALCOHOL 15 ML BOTTLE EACHEYE SCH ×4 (08:02→21:12)
[2016-07-17] MEDS: DOCUSATE SODIUM 100 MG CAPSULE PO SCH (08:02)
[2016-07-17] MEDS: PROSOURCE / PROSTAT (PYXIS) 30 ML UDC PO SCH ×3 (08:02→17:00)
[2016-07-17] MEDS: MINERAL OIL/PETROL OINT 396 GM JAR TP SCH ×2 (08:03→21:12)
[2016-07-17] MEDS: HYDROGEN PEROXIDE 480 ML BOTTLE TP SCH ×2 (08:03→21:12)
[2016-07-17] MEDS: HEPARIN SODIUM, PORCINE 5000 UNITS/1 ML VIAL SQ SCH ×2 (08:03→21:12)
[2016-07-17] MEDS: ZINC OXIDE 56.7 GM TUBE TP SCH ×2 (08:04→21:12)
[2016-07-17 20:05] VITALS: BP 138/91
[2016-07-17] MEDS: GUAIFENESIN/D-METHORPHAN HB 5 ML UDC PO PRN (21:12)
[2016-07-17] MEDS: INSULIN DETEMIR 100 UNIT/ML CARTRIDGE SQ SCH (21:13)
[2016-07-17] MEDS: GABAPENTIN 100 MG CAPSULE PO SCH (21:13)
[2016-07-17] MEDS: MONTELUKAST SODIUM (10MG) 10 MG TABLET PO SCH (21:13)
[2016-07-17] MEDS: TEMAZEPAM 15 MG CAPSULE PO SCH (21:13)
[2016-07-18] MEDS: ALBUTEROL FS 2.5 MG/3 ML VIAL.NEB NEB SCH ×4 (02:02→19:31)
[2016-07-18] MEDS: IPRATROPIUM NEB FS 0.5 MG/2.5 ML AMPUL.NEB IH SCH ×4 (02:02→19:31)
[2016-07-18] MEDS: PANTOPRAZOLE 40 MG TABLET.DR PO SCH (06:05)
[2016-07-18 07:40] VITALS: BP 139/89
[2016-07-18] MEDS: BLOOD SUGAR DIAGNOSTIC 1 EACH STRIP VI SCH ×4 (07:56→21:26)
[2016-07-18] MEDS: BUDESONIDE RESPULE INH 0.5 MG/2 ML AMPUL.NEB IH SCH ×2 (08:15→19:31)
[2016-07-18] MEDS: POLYVINYL ALCOHOL 15 ML BOTTLE EACHEYE SCH ×4 (09:15→21:25)
[2016-07-18] MEDS: RENAL NOVASOURCE (8OZ) 1 EA BOX PO SCH (09:16)
[2016-07-18] MEDS: PROSOURCE / PROSTAT (PYXIS) 30 ML UDC PO SCH ×3 (09:16→16:28)
[2016-07-18] MEDS: NEOM/POLY B SULF/HC OTIC SUSP 10 ML BOTTLE LEFT EAR SCH ×3 (09:16→16:28)
[2016-07-18] MEDS: SITAGLIPTIN PHOSPHATE 25 MG TABLET PO SCH (09:16)
[2016-07-18] MEDS: FLUTICASONE PROPIONATE 16 GM BOTTLE NS SCH ×2 (09:16→16:28)
[2016-07-18] MEDS: MINERAL OIL/PETROL OINT 396 GM JAR TP SCH ×2 (09:16→21:25)
[2016-07-18] MEDS: SERTRALINE HCL 25 MG TABLET PO SCH (09:16)
[2016-07-18] MEDS: HEPARIN SODIUM, PORCINE 5000 UNITS/1 ML VIAL SQ SCH ×2 (09:16→21:25)
[2016-07-18] MEDS: DOCUSATE SODIUM 100 MG CAPSULE PO SCH (09:16)
[2016-07-18] MEDS: ASCORBIC ACID 500 MG TABLET PO SCH (09:16)
[2016-07-18] MEDS: VIT B CMPLX 3/FA/VIT C/BIOTIN 1 TAB TABLET PO SCH (09:16)
[2016-07-18] MEDS: ZINC OXIDE 56.7 GM TUBE TP SCH ×2 (09:17→21:25)
[2016-07-18] MEDS: HYDROGEN PEROXIDE 480 ML BOTTLE TP SCH ×2 (09:17→21:25)
[2016-07-18] MEDS: GUAIFENESIN/D-METHORPHAN HB 5 ML UDC PO PRN ×2 (15:02→21:26)
[2016-07-18 20:26] VITALS: BP 144/98
[2016-07-18] MEDS: TEMAZEPAM 15 MG CAPSULE PO SCH (21:25)
[2016-07-18] MEDS: GABAPENTIN 100 MG CAPSULE PO SCH (21:25)
[2016-07-18] MEDS: MONTELUKAST SODIUM (10MG) 10 MG TABLET PO SCH (21:25)
[2016-07-18] MEDS: INSULIN DETEMIR 100 UNIT/ML CARTRIDGE SQ SCH (21:26)
[2016-07-18] MEDS: ATARAX 25 MG PO PRN (21:26)
[2016-07-19] MEDS: ALBUTEROL FS 2.5 MG/3 ML VIAL.NEB NEB SCH ×4 (01:36→19:47)
[2016-07-19] MEDS: IPRATROPIUM NEB FS 0.5 MG/2.5 ML AMPUL.NEB IH SCH ×4 (01:36→19:47)
[2016-07-19] MEDS: PANTOPRAZOLE 40 MG TABLET.DR PO SCH (05:16)
[2016-07-19] MEDS: BLOOD SUGAR DIAGNOSTIC 1 EACH STRIP VI SCH ×4 (06:43→21:13)
[2016-07-19 07:36] VITALS: BP 128/83
[2016-07-19] MEDS: POLYVINYL ALCOHOL 15 ML BOTTLE EACHEYE SCH ×4 (08:35→20:05)
[2016-07-19] MEDS: FLUTICASONE PROPIONATE 16 GM BOTTLE NS SCH ×2 (08:37→16:35)
[2016-07-19] MEDS: NEOM/POLY B SULF/HC OTIC SUSP 10 ML BOTTLE LEFT EAR SCH ×3 (08:37→16:34)
[2016-07-19] MEDS: DOCUSATE SODIUM 100 MG CAPSULE PO SCH (08:37)
[2016-07-19] MEDS: RENAL NOVASOURCE (8OZ) 1 EA BOX PO SCH (08:37)
[2016-07-19] MEDS: SITAGLIPTIN PHOSPHATE 25 MG TABLET PO SCH (08:37)
[2016-07-19] MEDS: VIT B CMPLX 3/FA/VIT C/BIOTIN 1 TAB TABLET PO SCH (08:37)
[2016-07-19] MEDS: PROSOURCE / PROSTAT (PYXIS) 30 ML UDC PO SCH ×3 (08:37→16:35)
[2016-07-19] MEDS: SERTRALINE HCL 25 MG TABLET PO SCH (08:37)
[2016-07-19] MEDS: ASCORBIC ACID 500 MG TABLET PO SCH (08:37)
[2016-07-19] MEDS: MINERAL OIL/PETROL OINT 396 GM JAR TP SCH ×2 (08:38→20:05)
[2016-07-19] MEDS: ZINC OXIDE 56.7 GM TUBE TP SCH ×2 (08:39→20:05)
[2016-07-19] MEDS: HYDROGEN PEROXIDE 480 ML BOTTLE TP SCH ×2 (08:39→20:05)
[2016-07-19] MEDS: HEPARIN SODIUM, PORCINE 5000 UNITS/1 ML VIAL SQ SCH ×2 (08:57→20:05)
[2016-07-19] MEDS: BUDESONIDE RESPULE INH 0.5 MG/2 ML AMPUL.NEB IH SCH ×2 (09:01→19:48)
[2016-07-19] MEDS: GUAIFENESIN/D-METHORPHAN HB 5 ML UDC PO PRN ×2 (12:31→20:05)
[2016-07-19] MEDS: INSULIN LISPRO/ASPART 100 UNIT/ML CARTRIDGE SQ PRN ×3 (12:34→21:14)
[2016-07-19] MEDS: BISACODYL SUPP (10 MG) 10 MG/SUPP.RECT SUPP.RECT RC PRN (19:06)
[2016-07-19] MEDS: NAPROXEN 500 MG TABLET PO PRN (20:05)
[2016-07-19 20:07] VITALS: BP 124/84
[2016-07-19] MEDS: GABAPENTIN 100 MG CAPSULE PO SCH (21:13)
[2016-07-19] MEDS: INSULIN DETEMIR 100 UNIT/ML CARTRIDGE SQ SCH (21:13)
[2016-07-19] MEDS: MONTELUKAST SODIUM (10MG) 10 MG TABLET PO SCH (21:13)
[2016-07-19] MEDS: TEMAZEPAM 15 MG CAPSULE PO SCH (21:13)
[2016-07-20] MEDS: IPRATROPIUM NEB FS 0.5 MG/2.5 ML AMPUL.NEB IH SCH ×5 (01:39→20:04)
[2016-07-20] MEDS: ALBUTEROL FS 2.5 MG/3 ML VIAL.NEB NEB SCH ×5 (01:39→20:04)
[2016-07-20] MEDS: PANTOPRAZOLE 40 MG TABLET.DR PO SCH (05:14)
[2016-07-20] MEDS: BLOOD SUGAR DIAGNOSTIC 1 EACH STRIP VI SCH ×4 (06:39→21:25)
[2016-07-20] MEDS: ASCORBIC ACID 500 MG TABLET PO SCH (08:03)
[2016-07-20] MEDS: SERTRALINE HCL 25 MG TABLET PO SCH (08:03)
[2016-07-20] MEDS: RENAL NOVASOURCE (8OZ) 1 EA BOX PO SCH (08:03)
[2016-07-20] MEDS: POLYVINYL ALCOHOL 15 ML BOTTLE EACHEYE SCH ×4 (08:03→21:24)
[2016-07-20] MEDS: PROSOURCE / PROSTAT (PYXIS) 30 ML UDC PO SCH ×3 (08:03→16:43)
[2016-07-20] MEDS: VIT B CMPLX 3/FA/VIT C/BIOTIN 1 TAB TABLET PO SCH (08:03)
[2016-07-20] MEDS: DOCUSATE SODIUM 100 MG CAPSULE PO SCH (08:03)
[2016-07-20] MEDS: NEOM/POLY B SULF/HC OTIC SUSP 10 ML BOTTLE LEFT EAR SCH ×3 (08:03→16:42)
[2016-07-20] MEDS: FLUTICASONE PROPIONATE 16 GM BOTTLE NS SCH ×2 (08:03→16:43)
[2016-07-20] MEDS: SITAGLIPTIN PHOSPHATE 25 MG TABLET PO SCH (08:03)
[2016-07-20] MEDS: BUDESONIDE RESPULE INH 0.5 MG/2 ML AMPUL.NEB IH SCH ×2 (08:04→20:04)
[2016-07-20] MEDS: GUAIFENESIN/D-METHORPHAN HB 5 ML UDC PO PRN ×2 (08:06→21:25)
[2016-07-20] MEDS: MINERAL OIL/PETROL OINT 396 GM JAR TP SCH ×2 (08:06→21:24)
[2016-07-20] MEDS: HEPARIN SODIUM, PORCINE 5000 UNITS/1 ML VIAL SQ SCH ×2 (08:06→21:24)
[2016-07-20 08:21] VITALS: BP 139/79
[2016-07-20] MEDS: ZINC OXIDE 56.7 GM TUBE TP SCH ×2 (16:42→21:24)
[2016-07-20] MEDS: HYDROGEN PEROXIDE 480 ML BOTTLE TP SCH ×2 (16:42→21:24)
[2016-07-20] MEDS: INSULIN LISPRO/ASPART 100 UNIT/ML CARTRIDGE SQ PRN (16:46)
[2016-07-20 21:20] VITALS: BP 129/84
[2016-07-20] MEDS: TEMAZEPAM 15 MG CAPSULE PO SCH (21:24)
[2016-07-20] MEDS: MONTELUKAST SODIUM (10MG) 10 MG TABLET PO SCH (21:24)
[2016-07-20] MEDS: GABAPENTIN 100 MG CAPSULE PO SCH (21:24)
[2016-07-20] MEDS: INSULIN DETEMIR 100 UNIT/ML CARTRIDGE SQ SCH (21:25)
[2016-07-20] MEDS: NAPROXEN 500 MG TABLET PO PRN (21:26)
[2016-07-21] MEDS: IPRATROPIUM NEB FS 0.5 MG/2.5 ML AMPUL.NEB IH SCH ×4 (01:24→20:02)
[2016-07-21] MEDS: ALBUTEROL FS 2.5 MG/3 ML VIAL.NEB NEB SCH ×4 (01:24→20:02)
[2016-07-21] MEDS: PANTOPRAZOLE 40 MG TABLET.DR PO SCH (05:12)
[2016-07-21] MEDS: BLOOD SUGAR DIAGNOSTIC 1 EACH STRIP VI SCH ×4 (06:43→21:18)
[2016-07-21] MEDS: NEOM/POLY B SULF/HC OTIC SUSP 10 ML BOTTLE LEFT EAR SCH ×3 (08:30→16:47)
[2016-07-21] MEDS: POLYVINYL ALCOHOL 15 ML BOTTLE EACHEYE SCH ×4 (08:30→21:16)
[2016-07-21] MEDS: VIT B CMPLX 3/FA/VIT C/BIOTIN 1 TAB TABLET PO SCH (08:31)
[2016-07-21] MEDS: PROSOURCE / PROSTAT (PYXIS) 30 ML UDC PO SCH ×3 (08:31→16:48)
[2016-07-21] MEDS: DOCUSATE SODIUM 100 MG CAPSULE PO SCH (08:31)
[2016-07-21] MEDS: SITAGLIPTIN PHOSPHATE 25 MG TABLET PO SCH (08:31)
[2016-07-21] MEDS: RENAL NOVASOURCE (8OZ) 1 EA BOX PO SCH (08:31)
[2016-07-21] MEDS: SERTRALINE HCL 25 MG TABLET PO SCH (08:31)
[2016-07-21] MEDS: FLUTICASONE PROPIONATE 16 GM BOTTLE NS SCH ×2 (08:31→16:48)
[2016-07-21] MEDS: ASCORBIC ACID 500 MG TABLET PO SCH (08:31)
[2016-07-21] MEDS: MINERAL OIL/PETROL OINT 396 GM JAR TP SCH ×2 (08:32→21:17)
[2016-07-21] MEDS: HEPARIN SODIUM, PORCINE 5000 UNITS/1 ML VIAL SQ SCH ×2 (08:32→21:17)
[2016-07-21 08:34] VITALS: BP 135/86
[2016-07-21] MEDS: HYDROGEN PEROXIDE 480 ML BOTTLE TP SCH ×2 (09:00→21:17)
[2016-07-21] MEDS: ZINC OXIDE 56.7 GM TUBE TP SCH ×2 (09:00→21:17)
[2016-07-21] MEDS: BUDESONIDE RESPULE INH 0.5 MG/2 ML AMPUL.NEB IH SCH ×2 (09:13→20:02)
[2016-07-21] MEDS: INSULIN LISPRO/ASPART 100 UNIT/ML CARTRIDGE SQ PRN ×3 (12:42→21:18)
[2016-07-21 19:34] VITALS: BP 142/94
[2016-07-21] MEDS: MONTELUKAST SODIUM (10MG) 10 MG TABLET PO SCH (21:17)
[2016-07-21] MEDS: TEMAZEPAM 15 MG CAPSULE PO SCH (21:17)
[2016-07-21] MEDS: GABAPENTIN 100 MG CAPSULE PO SCH (21:17)
[2016-07-21] MEDS: INSULIN DETEMIR 100 UNIT/ML CARTRIDGE SQ SCH (21:18)
[2016-07-22] MEDS: GUAIFENESIN/D-METHORPHAN HB 5 ML UDC PO PRN ×2 (00:25→21:24)
[2016-07-22] MEDS: ATARAX 25 MG PO PRN (00:25)
[2016-07-22] MEDS: IPRATROPIUM NEB FS 0.5 MG/2.5 ML AMPUL.NEB IH SCH ×4 (01:56→20:14)
[2016-07-22] MEDS: ALBUTEROL FS 2.5 MG/3 ML VIAL.NEB NEB SCH ×4 (01:56→20:14)
[2016-07-22] MEDS: PANTOPRAZOLE 40 MG TABLET.DR PO SCH (06:40)
[2016-07-22] MEDS: BLOOD SUGAR DIAGNOSTIC 1 EACH STRIP VI SCH ×4 (06:40→21:26)
[2016-07-22] MEDS: BUDESONIDE RESPULE INH 0.5 MG/2 ML AMPUL.NEB IH SCH ×2 (07:12→20:28)
[2016-07-22 07:38] VITALS: BP 146/88
[2016-07-22] MEDS: FLUTICASONE PROPIONATE 16 GM BOTTLE NS SCH ×2 (08:25→17:00)
[2016-07-22] MEDS: POLYVINYL ALCOHOL 15 ML BOTTLE EACHEYE SCH ×4 (08:25→21:24)
[2016-07-22] MEDS: NEOM/POLY B SULF/HC OTIC SUSP 10 ML BOTTLE LEFT EAR SCH ×2 (08:25→12:38)
[2016-07-22] MEDS: SERTRALINE HCL 25 MG TABLET PO SCH (08:26)
[2016-07-22] MEDS: VIT B CMPLX 3/FA/VIT C/BIOTIN 1 TAB TABLET PO SCH (08:26)
[2016-07-22] MEDS: DOCUSATE SODIUM 100 MG CAPSULE PO SCH (08:26)
[2016-07-22] MEDS: ASCORBIC ACID 500 MG TABLET PO SCH (08:26)
[2016-07-22] MEDS: PROSOURCE / PROSTAT (PYXIS) 30 ML UDC PO SCH ×3 (08:26→17:00)
[2016-07-22] MEDS: RENAL NOVASOURCE (8OZ) 1 EA BOX PO SCH (08:26)
[2016-07-22] MEDS: SITAGLIPTIN PHOSPHATE 25 MG TABLET PO SCH (08:26)
[2016-07-22] MEDS: HYDROGEN PEROXIDE 480 ML BOTTLE TP SCH ×2 (08:27→21:25)
[2016-07-22] MEDS: MINERAL OIL/PETROL OINT 396 GM JAR TP SCH ×2 (08:27→21:25)
[2016-07-22] MEDS: HEPARIN SODIUM, PORCINE 5000 UNITS/1 ML VIAL SQ SCH ×2 (08:27→21:24)
[2016-07-22] MEDS: ZINC OXIDE 56.7 GM TUBE TP SCH ×2 (08:28→21:25)
[2016-07-22] MEDS: INSULIN LISPRO/ASPART 100 UNIT/ML CARTRIDGE SQ PRN ×2 (12:31→18:15)
[2016-07-22 19:55] VITALS: BP 127/78
[2016-07-22] MEDS: TEMAZEPAM 15 MG CAPSULE PO SCH (21:25)
[2016-07-22] MEDS: INSULIN DETEMIR 100 UNIT/ML CARTRIDGE SQ SCH (21:25)
[2016-07-22] MEDS: MONTELUKAST SODIUM (10MG) 10 MG TABLET PO SCH (21:25)
[2016-07-22] MEDS: GABAPENTIN 100 MG CAPSULE PO SCH (21:25)
[2016-07-23] MEDS: IPRATROPIUM NEB FS 0.5 MG/2.5 ML AMPUL.NEB IH SCH ×4 (02:09→20:02)
[2016-07-23] MEDS: ALBUTEROL FS 2.5 MG/3 ML VIAL.NEB NEB SCH ×4 (02:09→20:02)
[2016-07-23] MEDS: PANTOPRAZOLE 40 MG TABLET.DR PO SCH (05:41)
[2016-07-23 07:41] VITALS: BP 130/86
[2016-07-23] MEDS: BLOOD SUGAR DIAGNOSTIC 1 EACH STRIP VI SCH ×4 (07:43→21:25)
[2016-07-23] MEDS: INSULIN LISPRO/ASPART 100 UNIT/ML CARTRIDGE SQ PRN ×2 (07:46→18:47)
--- NOTE | 2016-07-23 07:47 | NUR ---
Blood sugar result is 63mg/dl. assessed pt- alert, oriented and coherent. CN made aware and pt is eating breakfast.
[2016-07-23] MEDS: BUDESONIDE RESPULE INH 0.5 MG/2 ML AMPUL.NEB IH SCH ×2 (08:17→20:17)
[2016-07-23] MEDS: POLYVINYL ALCOHOL 15 ML BOTTLE EACHEYE SCH ×4 (08:35→21:24)
[2016-07-23] MEDS: SITAGLIPTIN PHOSPHATE 25 MG TABLET PO SCH (08:36)
[2016-07-23] MEDS: SERTRALINE HCL 25 MG TABLET PO SCH (08:36)
[2016-07-23] MEDS: FLUTICASONE PROPIONATE 16 GM BOTTLE NS SCH ×2 (08:36→17:00)
[2016-07-23] MEDS: ERGOCALCIFEROL (VITAMIN D 2) 50,000 UNIT CAPSULE PO SCH (08:36)
[2016-07-23] MEDS: RENAL NOVASOURCE (8OZ) 1 EA BOX PO SCH (08:36)
[2016-07-23] MEDS: ASCORBIC ACID 500 MG TABLET PO SCH (08:36)
[2016-07-23] MEDS: PROSOURCE / PROSTAT (PYXIS) 30 ML UDC PO SCH ×3 (08:36→17:00)
[2016-07-23] MEDS: VIT B CMPLX 3/FA/VIT C/BIOTIN 1 TAB TABLET PO SCH (08:36)
[2016-07-23] MEDS: DOCUSATE SODIUM 100 MG CAPSULE PO SCH (08:36)
[2016-07-23] MEDS: HEPARIN SODIUM, PORCINE 5000 UNITS/1 ML VIAL SQ SCH ×2 (08:37→21:24)
[2016-07-23] MEDS: MINERAL OIL/PETROL OINT 396 GM JAR TP SCH ×2 (08:37→21:24)
[2016-07-23] MEDS: ZINC OXIDE 56.7 GM TUBE TP SCH ×2 (09:00→21:24)
[2016-07-23] MEDS: HYDROGEN PEROXIDE 480 ML BOTTLE TP SCH ×2 (09:00→21:24)
[2016-07-23 19:45] VITALS: BP 136/82
[2016-07-23] MEDS: GABAPENTIN 100 MG CAPSULE PO SCH (21:24)
[2016-07-23] MEDS: GUAIFENESIN/D-METHORPHAN HB 5 ML UDC PO PRN (21:24)
[2016-07-23] MEDS: MONTELUKAST SODIUM (10MG) 10 MG TABLET PO SCH (21:25)
[2016-07-23] MEDS: INSULIN DETEMIR 100 UNIT/ML CARTRIDGE SQ SCH (21:25)
[2016-07-23] MEDS: TEMAZEPAM 15 MG CAPSULE PO SCH (21:25)
[2016-07-24] MEDS: IPRATROPIUM NEB FS 0.5 MG/2.5 ML AMPUL.NEB IH SCH ×4 (01:35→19:45)
[2016-07-24] MEDS: ALBUTEROL FS 2.5 MG/3 ML VIAL.NEB NEB SCH ×4 (01:35→19:45)
[2016-07-24] MEDS: PANTOPRAZOLE 40 MG TABLET.DR PO SCH (06:08)
[2016-07-24] MEDS: BLOOD SUGAR DIAGNOSTIC 1 EACH STRIP VI SCH ×4 (07:36→21:26)
[2016-07-24 07:43] VITALS: BP 135/97
[2016-07-24] MEDS: BUDESONIDE RESPULE INH 0.5 MG/2 ML AMPUL.NEB IH SCH ×2 (07:50→19:45)
[2016-07-24] MEDS: POLYVINYL ALCOHOL 15 ML BOTTLE EACHEYE SCH ×4 (08:28→21:24)
[2016-07-24] MEDS: VIT B CMPLX 3/FA/VIT C/BIOTIN 1 TAB TABLET PO SCH (08:28)
[2016-07-24] MEDS: SERTRALINE HCL 25 MG TABLET PO SCH (08:28)
[2016-07-24] MEDS: SITAGLIPTIN PHOSPHATE 25 MG TABLET PO SCH (08:28)
[2016-07-24] MEDS: ASCORBIC ACID 500 MG TABLET PO SCH (08:28)
[2016-07-24] MEDS: RENAL NOVASOURCE (8OZ) 1 EA BOX PO SCH (08:28)
[2016-07-24] MEDS: PROSOURCE / PROSTAT (PYXIS) 30 ML UDC PO SCH ×3 (08:28→17:02)
[2016-07-24] MEDS: DOCUSATE SODIUM 100 MG CAPSULE PO SCH (08:28)
[2016-07-24] MEDS: HYDROGEN PEROXIDE 480 ML BOTTLE TP SCH ×2 (08:29→21:25)
[2016-07-24] MEDS: ZINC OXIDE 56.7 GM TUBE TP SCH ×2 (08:29→21:25)
[2016-07-24] MEDS: MINERAL OIL/PETROL OINT 396 GM JAR TP SCH ×2 (08:29→21:25)
[2016-07-24] MEDS: HEPARIN SODIUM, PORCINE 5000 UNITS/1 ML VIAL SQ SCH ×2 (08:29→21:25)
[2016-07-24] MEDS: GUAIFENESIN/D-METHORPHAN HB 5 ML UDC PO PRN ×2 (09:24→21:24)
[2016-07-24] MEDS: FLUTICASONE PROPIONATE 16 GM BOTTLE NS SCH ×2 (09:25→17:02)
[2016-07-24] MEDS: INSULIN LISPRO/ASPART 100 UNIT/ML CARTRIDGE SQ PRN (12:26)
--- NOTE | 2016-07-24 12:37 | NUR ---
Resident noted with redness and swelling of the L great toe with small amount of yellow pus coming out from the cuticle bed. Applied triple ATB and referred to laser operator by SSD.
--- NOTE | 2016-07-24 14:57 | NUR ---
Was informed by charge nurse that patient needs a podiatry consult. Informed Mathieu at the wound center who stated that he will notify Dr. Jones or Dr. Duenas to come and see the resident. Charge nurse informed.
[2016-07-24 20:00] VITALS: BP 142/95
[2016-07-24] MEDS: GABAPENTIN 100 MG CAPSULE PO SCH (21:25)
[2016-07-24] MEDS: TEMAZEPAM 15 MG CAPSULE PO SCH (21:25)
[2016-07-24] MEDS: NEOMY SULF/BACITRAC ZN/POLY 15 GM TUBE TP SCH (21:25)
[2016-07-24] MEDS: MONTELUKAST SODIUM (10MG) 10 MG TABLET PO SCH (21:25)
[2016-07-24] MEDS: INSULIN DETEMIR 100 UNIT/ML CARTRIDGE SQ SCH (21:26)
[2016-07-25] MEDS: IPRATROPIUM NEB FS 0.5 MG/2.5 ML AMPUL.NEB IH SCH ×4 (01:41→20:07)
[2016-07-25] MEDS: ALBUTEROL FS 2.5 MG/3 ML VIAL.NEB NEB SCH ×4 (01:41→20:07)
[2016-07-25] MEDS: PANTOPRAZOLE 40 MG TABLET.DR PO SCH (06:04)
[2016-07-25] MEDS: BLOOD SUGAR DIAGNOSTIC 1 EACH STRIP VI SCH ×4 (07:30→22:32)
[2016-07-25] MEDS: BUDESONIDE RESPULE INH 0.5 MG/2 ML AMPUL.NEB IH SCH ×2 (07:59→21:06)
[2016-07-25] MEDS: RENAL NOVASOURCE (8OZ) 1 EA BOX PO SCH (09:04)
[2016-07-25] MEDS: ZINC OXIDE 56.7 GM TUBE TP SCH ×2 (09:04→21:54)
[2016-07-25] MEDS: HYDROGEN PEROXIDE 480 ML BOTTLE TP SCH ×2 (09:04→21:53)
[2016-07-25] MEDS: SERTRALINE HCL 25 MG TABLET PO SCH (09:04)
[2016-07-25] MEDS: POLYVINYL ALCOHOL 15 ML BOTTLE EACHEYE SCH ×4 (09:04→21:53)
[2016-07-25] MEDS: DOCUSATE SODIUM 100 MG CAPSULE PO SCH (09:04)
[2016-07-25] MEDS: NEOMY SULF/BACITRAC ZN/POLY 15 GM TUBE TP SCH ×2 (09:04→21:53)
[2016-07-25] MEDS: FLUTICASONE PROPIONATE 16 GM BOTTLE NS SCH ×2 (09:04→17:20)
[2016-07-25] MEDS: VIT B CMPLX 3/FA/VIT C/BIOTIN 1 TAB TABLET PO SCH (09:04)
[2016-07-25] MEDS: SITAGLIPTIN PHOSPHATE 25 MG TABLET PO SCH (09:04)
[2016-07-25] MEDS: PROSOURCE / PROSTAT (PYXIS) 30 ML UDC PO SCH ×3 (09:04→17:21)
[2016-07-25] MEDS: HEPARIN SODIUM, PORCINE 5000 UNITS/1 ML VIAL SQ SCH ×2 (09:04→21:53)
[2016-07-25] MEDS: MINERAL OIL/PETROL OINT 396 GM JAR TP SCH ×2 (09:04→21:53)
[2016-07-25] MEDS: ASCORBIC ACID 500 MG TABLET PO SCH (09:04)
--- NOTE | 2016-07-25 15:00 | NUR ---
Seen by Radha Petty NP with no new order.
--- NOTE | 2016-07-25 16:00 | NUR ---
Seen by Dr Jones regarding pt left great toe redness with no new order just continue current treatment order.
[2016-07-25 20:07] VITALS: BP 152/93
[2016-07-25] MEDS: NAPROXEN 500 MG TABLET PO PRN (20:08)
[2016-07-25] MEDS: GUAIFENESIN/D-METHORPHAN HB 5 ML UDC PO PRN (20:09)
[2016-07-25] MEDS: BACI/NEOM/POLY B OINT PKT 1 UDPKT PACKET TP SCH (21:54)
[2016-07-25] MEDS: TEMAZEPAM 15 MG CAPSULE PO SCH (21:55)
[2016-07-25] MEDS: MONTELUKAST SODIUM (10MG) 10 MG TABLET PO SCH (21:55)
[2016-07-25] MEDS: GABAPENTIN 100 MG CAPSULE PO SCH (21:55)
[2016-07-25] MEDS: INSULIN DETEMIR 100 UNIT/ML CARTRIDGE SQ SCH (22:32)
[2016-07-25] MEDS: INSULIN LISPRO/ASPART 100 UNIT/ML CARTRIDGE SQ PRN (22:33)
[2016-07-26] MEDS: IPRATROPIUM NEB FS 0.5 MG/2.5 ML AMPUL.NEB IH SCH ×4 (01:30→19:30)
[2016-07-26] MEDS: ALBUTEROL FS 2.5 MG/3 ML VIAL.NEB NEB SCH ×4 (01:30→20:30)
[2016-07-26] MEDS: PANTOPRAZOLE 40 MG TABLET.DR PO SCH (06:01)
[2016-07-26] MEDS: BLOOD SUGAR DIAGNOSTIC 1 EACH STRIP VI SCH ×4 (06:54→21:43)
[2016-07-26] MEDS: INSULIN LISPRO/ASPART 100 UNIT/ML CARTRIDGE SQ PRN ×3 (06:55→21:45)
[2016-07-26] MEDS: BUDESONIDE RESPULE INH 0.5 MG/2 ML AMPUL.NEB IH SCH ×2 (08:00→20:32)
[2016-07-26] MEDS: ZINC OXIDE 56.7 GM TUBE TP SCH ×2 (09:00→21:04)
[2016-07-26] MEDS: ASCORBIC ACID 500 MG TABLET PO SCH (09:00)
[2016-07-26] MEDS: RENAL NOVASOURCE (8OZ) 1 EA BOX PO SCH (09:00)
[2016-07-26] MEDS: MINERAL OIL/PETROL OINT 396 GM JAR TP SCH ×2 (09:00→21:04)
[2016-07-26] MEDS: FLUTICASONE PROPIONATE 16 GM BOTTLE NS SCH ×2 (09:00→16:59)
[2016-07-26] MEDS: VIT B CMPLX 3/FA/VIT C/BIOTIN 1 TAB TABLET PO SCH (09:00)
[2016-07-26] MEDS: SITAGLIPTIN PHOSPHATE 25 MG TABLET PO SCH (09:00)
[2016-07-26] MEDS: HEPARIN SODIUM, PORCINE 5000 UNITS/1 ML VIAL SQ SCH ×2 (09:00→21:04)
[2016-07-26] MEDS: SERTRALINE HCL 25 MG TABLET PO SCH (09:00)
[2016-07-26] MEDS: PROSOURCE / PROSTAT (PYXIS) 30 ML UDC PO SCH ×3 (09:00→16:59)
[2016-07-26] MEDS: DOCUSATE SODIUM 100 MG CAPSULE PO SCH (09:00)
[2016-07-26] MEDS: POLYVINYL ALCOHOL 15 ML BOTTLE EACHEYE SCH ×4 (09:00→21:03)
[2016-07-26] MEDS: BACI/NEOM/POLY B OINT PKT 1 UDPKT PACKET TP SCH ×2 (09:00→21:04)
[2016-07-26] MEDS: HYDROGEN PEROXIDE 480 ML BOTTLE TP SCH ×2 (09:00→21:04)
[2016-07-26] MEDS: NEOMY SULF/BACITRAC ZN/POLY 15 GM TUBE TP SCH ×2 (09:00→21:04)
[2016-07-26] MEDS: GUAIFENESIN/D-METHORPHAN HB 5 ML UDC PO PRN ×2 (13:07→19:50)
[2016-07-26 15:11] VITALS: BP 130/72
--- NOTE | 2016-07-26 15:30 | NUR ---
INTERDISCIPLINARY PLAN OF CARE CONFERENCE was held today. Resident's brother was unable to attend. New orders were reviewed. Dr. Gardner and the interdisciplinary team reviewed the current plan of care in detail. Resident was recently seen by the installation coordinator and oatkatherine bath has been working for him. No other changes have been noted.
[2016-07-26 20:06] VITALS: BP 134/79
[2016-07-26] MEDS: GABAPENTIN 100 MG CAPSULE PO SCH (21:04)
[2016-07-26] MEDS: TEMAZEPAM 15 MG CAPSULE PO SCH (21:05)
[2016-07-26] MEDS: MONTELUKAST SODIUM (10MG) 10 MG TABLET PO SCH (21:05)
[2016-07-26] MEDS: INSULIN DETEMIR 100 UNIT/ML CARTRIDGE SQ SCH (21:43)
[2016-07-27] MEDS: ALBUTEROL FS 2.5 MG/3 ML VIAL.NEB NEB SCH ×4 (02:02→19:50)
[2016-07-27] MEDS: IPRATROPIUM NEB FS 0.5 MG/2.5 ML AMPUL.NEB IH SCH ×4 (02:02→19:50)
[2016-07-27] MEDS: PANTOPRAZOLE 40 MG TABLET.DR PO SCH (05:39)
[2016-07-27] MEDS: BLOOD SUGAR DIAGNOSTIC 1 EACH STRIP VI SCH ×4 (07:02→21:21)
[2016-07-27] MEDS: INSULIN LISPRO/ASPART 100 UNIT/ML CARTRIDGE SQ PRN ×2 (07:03→21:21)
[2016-07-27 08:00] VITALS: BP 140/94
[2016-07-27] MEDS: BUDESONIDE RESPULE INH 0.5 MG/2 ML AMPUL.NEB IH SCH ×2 (08:02→21:01)
[2016-07-27] MEDS: ASCORBIC ACID 500 MG TABLET PO SCH (08:35)
[2016-07-27] MEDS: SERTRALINE HCL 25 MG TABLET PO SCH (08:35)
[2016-07-27] MEDS: VIT B CMPLX 3/FA/VIT C/BIOTIN 1 TAB TABLET PO SCH (08:35)
[2016-07-27] MEDS: SITAGLIPTIN PHOSPHATE 25 MG TABLET PO SCH (08:35)
[2016-07-27] MEDS: HEPARIN SODIUM, PORCINE 5000 UNITS/1 ML VIAL SQ SCH ×2 (08:35→21:19)
[2016-07-27] MEDS: GUAIFENESIN/D-METHORPHAN HB 5 ML UDC PO PRN ×2 (08:35→09:04)
[2016-07-27] MEDS: ATARAX 25 MG PO PRN ×2 (08:35→09:04)
[2016-07-27] MEDS: PROSOURCE / PROSTAT (PYXIS) 30 ML UDC PO SCH ×3 (08:35→17:00)
[2016-07-27] MEDS: RENAL NOVASOURCE (8OZ) 1 EA BOX PO SCH (08:35)
[2016-07-27] MEDS: NAPROXEN 500 MG TABLET PO PRN ×2 (08:35→09:03)
[2016-07-27] MEDS: DOCUSATE SODIUM 100 MG CAPSULE PO SCH (08:35)
[2016-07-27] MEDS: POLYVINYL ALCOHOL 15 ML BOTTLE EACHEYE SCH ×4 (08:35→21:18)
[2016-07-27] MEDS: ZINC OXIDE 56.7 GM TUBE TP SCH ×2 (16:30→21:19)
[2016-07-27] MEDS: BACI/NEOM/POLY B OINT PKT 1 UDPKT PACKET TP SCH ×2 (16:30→21:19)
[2016-07-27] MEDS: HYDROGEN PEROXIDE 480 ML BOTTLE TP SCH ×2 (16:30→21:19)
[2016-07-27] MEDS: MINERAL OIL/PETROL OINT 396 GM JAR TP SCH ×2 (16:30→21:19)
[2016-07-27] MEDS: NEOMY SULF/BACITRAC ZN/POLY 15 GM TUBE TP SCH ×2 (16:30→21:19)
--- NOTE | 2016-07-27 18:25 | NUR ---
Pt has refusal of Artificial Tears and Prostat 30ml x2 this shift. Explained to pt the benefits of meds but still refused. No apparent reason for refusal. He was just shaking his head. Charge Nurse made aware.
[2016-07-27 20:13] VITALS: BP 131/89
[2016-07-27] MEDS: GABAPENTIN 100 MG CAPSULE PO SCH (21:19)
[2016-07-27] MEDS: INSULIN DETEMIR 100 UNIT/ML CARTRIDGE SQ SCH (21:20)
[2016-07-27] MEDS: TEMAZEPAM 15 MG CAPSULE PO SCH (21:20)
[2016-07-27] MEDS: MONTELUKAST SODIUM (10MG) 10 MG TABLET PO SCH (21:22)
[2016-07-28] MEDS: ALBUTEROL FS 2.5 MG/3 ML VIAL.NEB NEB SCH ×4 (01:26→20:02)
[2016-07-28] MEDS: IPRATROPIUM NEB FS 0.5 MG/2.5 ML AMPUL.NEB IH SCH ×4 (01:26→20:02)
[2016-07-28] MEDS: PANTOPRAZOLE 40 MG TABLET.DR PO SCH (05:43)
[2016-07-28] MEDS: BLOOD SUGAR DIAGNOSTIC 1 EACH STRIP VI SCH ×4 (06:55→21:27)
[2016-07-28] MEDS: INSULIN LISPRO/ASPART 100 UNIT/ML CARTRIDGE SQ PRN ×4 (06:56→21:28)
[2016-07-28] MEDS: BUDESONIDE RESPULE INH 0.5 MG/2 ML AMPUL.NEB IH SCH ×2 (08:28→20:02)
[2016-07-28 08:36] VITALS: BP 127/80
[2016-07-28] MEDS: GUAIFENESIN/D-METHORPHAN HB 5 ML UDC PO PRN ×2 (09:00→21:27)
[2016-07-28] MEDS: RENAL NOVASOURCE (8OZ) 1 EA BOX PO SCH (09:23)
[2016-07-28] MEDS: DOCUSATE SODIUM 100 MG CAPSULE PO SCH (09:23)
[2016-07-28] MEDS: SITAGLIPTIN PHOSPHATE 25 MG TABLET PO SCH (09:23)
[2016-07-28] MEDS: ASCORBIC ACID 500 MG TABLET PO SCH (09:23)
[2016-07-28] MEDS: PROSOURCE / PROSTAT (PYXIS) 30 ML UDC PO SCH ×3 (09:23→17:14)
[2016-07-28] MEDS: SERTRALINE HCL 25 MG TABLET PO SCH (09:23)
[2016-07-28] MEDS: POLYVINYL ALCOHOL 15 ML BOTTLE EACHEYE SCH ×4 (09:23→21:26)
[2016-07-28] MEDS: VIT B CMPLX 3/FA/VIT C/BIOTIN 1 TAB TABLET PO SCH (09:23)
[2016-07-28] MEDS: ZINC OXIDE 56.7 GM TUBE TP SCH ×2 (09:29→21:26)
[2016-07-28] MEDS: HYDROGEN PEROXIDE 480 ML BOTTLE TP SCH ×2 (09:29→21:26)
[2016-07-28] MEDS: BACI/NEOM/POLY B OINT PKT 1 UDPKT PACKET TP SCH ×2 (09:29→21:26)
[2016-07-28] MEDS: MINERAL OIL/PETROL OINT 396 GM JAR TP SCH ×2 (09:29→21:26)
[2016-07-28] MEDS: NEOMY SULF/BACITRAC ZN/POLY 15 GM TUBE TP SCH ×2 (09:29→21:26)
[2016-07-28] MEDS: HEPARIN SODIUM, PORCINE 5000 UNITS/1 ML VIAL SQ SCH ×2 (09:29→21:26)
[2016-07-28 19:35] VITALS: BP 140/87
[2016-07-28] MEDS: GABAPENTIN 100 MG CAPSULE PO SCH (21:26)
[2016-07-28] MEDS: INSULIN DETEMIR 100 UNIT/ML CARTRIDGE SQ SCH (21:27)
[2016-07-28] MEDS: TEMAZEPAM 15 MG CAPSULE PO SCH (21:27)
[2016-07-28] MEDS: MONTELUKAST SODIUM (10MG) 10 MG TABLET PO SCH (21:27)
[2016-07-29] MEDS: IPRATROPIUM NEB FS 0.5 MG/2.5 ML AMPUL.NEB IH SCH ×4 (01:44→20:16)
[2016-07-29] MEDS: ALBUTEROL FS 2.5 MG/3 ML VIAL.NEB NEB SCH ×4 (01:45→20:16)
[2016-07-29] MEDS: PANTOPRAZOLE 40 MG TABLET.DR PO SCH (05:50)
[2016-07-29] MEDS: BLOOD SUGAR DIAGNOSTIC 1 EACH STRIP VI SCH ×4 (07:30→21:39)
[2016-07-29 08:03] VITALS: BP 146/80
[2016-07-29] MEDS: BUDESONIDE RESPULE INH 0.5 MG/2 ML AMPUL.NEB IH SCH ×2 (08:30→20:17)
[2016-07-29] MEDS: DOCUSATE SODIUM 100 MG CAPSULE PO SCH (08:52)
[2016-07-29] MEDS: POLYVINYL ALCOHOL 15 ML BOTTLE EACHEYE SCH ×4 (08:52→21:37)
[2016-07-29] MEDS: VIT B CMPLX 3/FA/VIT C/BIOTIN 1 TAB TABLET PO SCH (08:53)
[2016-07-29] MEDS: SITAGLIPTIN PHOSPHATE 25 MG TABLET PO SCH (08:53)
[2016-07-29] MEDS: RENAL NOVASOURCE (8OZ) 1 EA BOX PO SCH (08:53)
[2016-07-29] MEDS: ASCORBIC ACID 500 MG TABLET PO SCH (08:53)
[2016-07-29] MEDS: SERTRALINE HCL 25 MG TABLET PO SCH (08:53)
[2016-07-29] MEDS: PROSOURCE / PROSTAT (PYXIS) 30 ML UDC PO SCH ×3 (08:53→17:00)
[2016-07-29] MEDS: GUAIFENESIN/D-METHORPHAN HB 5 ML UDC PO PRN (08:54)
[2016-07-29] MEDS: HEPARIN SODIUM, PORCINE 5000 UNITS/1 ML VIAL SQ SCH ×2 (08:54→21:38)
[2016-07-29] MEDS: NAPROXEN 500 MG TABLET PO PRN (08:54)
[2016-07-29] MEDS: MINERAL OIL/PETROL OINT 396 GM JAR TP SCH ×2 (11:00→21:38)
[2016-07-29] MEDS: INSULIN LISPRO/ASPART 100 UNIT/ML CARTRIDGE SQ PRN ×2 (12:15→17:15)
[2016-07-29] MEDS: ZINC OXIDE 56.7 GM TUBE TP SCH ×2 (15:30→21:38)
[2016-07-29] MEDS: BACI/NEOM/POLY B OINT PKT 1 UDPKT PACKET TP SCH ×2 (15:30→21:38)
[2016-07-29] MEDS: NEOMY SULF/BACITRAC ZN/POLY 15 GM TUBE TP SCH ×2 (15:30→21:38)
[2016-07-29] MEDS: HYDROGEN PEROXIDE 480 ML BOTTLE TP SCH ×2 (15:30→21:38)
--- NOTE | 2016-07-29 19:33 | NUR ---
Correction for BS result at 1700 - 107, no Regular Insulin given per sliding scale.
[2016-07-29 20:00] VITALS: BP 138/93
[2016-07-29] MEDS: MONTELUKAST SODIUM (10MG) 10 MG TABLET PO SCH (21:38)
[2016-07-29] MEDS: GABAPENTIN 100 MG CAPSULE PO SCH (21:38)
[2016-07-29] MEDS: TEMAZEPAM 15 MG CAPSULE PO SCH (21:38)
[2016-07-29] MEDS: INSULIN DETEMIR 100 UNIT/ML CARTRIDGE SQ SCH (21:39)
[2016-07-30] MEDS: IPRATROPIUM NEB FS 0.5 MG/2.5 ML AMPUL.NEB IH SCH ×4 (01:04→19:30)
[2016-07-30] MEDS: ALBUTEROL FS 2.5 MG/3 ML VIAL.NEB NEB SCH ×4 (01:05→19:30)
[2016-07-30] MEDS: PANTOPRAZOLE 40 MG TABLET.DR PO SCH (05:39)
[2016-07-30 08:01] VITALS: BP 134/85
[2016-07-30] MEDS: BUDESONIDE RESPULE INH 0.5 MG/2 ML AMPUL.NEB IH SCH ×2 (08:01→21:28)
[2016-07-30] MEDS: SITAGLIPTIN PHOSPHATE 25 MG TABLET PO SCH (08:13)
[2016-07-30] MEDS: VIT B CMPLX 3/FA/VIT C/BIOTIN 1 TAB TABLET PO SCH (08:13)
[2016-07-30] MEDS: PROSOURCE / PROSTAT (PYXIS) 30 ML UDC PO SCH ×2 (08:13→12:35)
[2016-07-30] MEDS: POLYVINYL ALCOHOL 15 ML BOTTLE EACHEYE SCH ×3 (08:13→21:20)
[2016-07-30] MEDS: ASCORBIC ACID 500 MG TABLET PO SCH (08:13)
[2016-07-30] MEDS: ERGOCALCIFEROL (VITAMIN D 2) 50,000 UNIT CAPSULE PO SCH (08:13)
[2016-07-30] MEDS: BLOOD SUGAR DIAGNOSTIC 1 EACH STRIP VI SCH ×3 (08:13→21:21)
[2016-07-30] MEDS: HEPARIN SODIUM, PORCINE 5000 UNITS/1 ML VIAL SQ SCH ×2 (08:13→21:21)
[2016-07-30] MEDS: SERTRALINE HCL 25 MG TABLET PO SCH (08:13)
[2016-07-30] MEDS: RENAL NOVASOURCE (8OZ) 1 EA BOX PO SCH (08:13)
[2016-07-30] MEDS: DOCUSATE SODIUM 100 MG CAPSULE PO SCH (08:13)
--- NOTE | 2016-07-30 09:40 | NUR ---
Seen by Dr Gardner with no new order.
[2016-07-30] MEDS: ZINC OXIDE 56.7 GM TUBE TP SCH ×2 (15:30→21:22)
[2016-07-30] MEDS: BACI/NEOM/POLY B OINT PKT 1 UDPKT PACKET TP SCH ×2 (15:30→21:22)
[2016-07-30] MEDS: HYDROGEN PEROXIDE 480 ML BOTTLE TP SCH ×2 (16:30→21:22)
[2016-07-30] MEDS: NEOMY SULF/BACITRAC ZN/POLY 15 GM TUBE TP SCH ×2 (16:30→21:22)
[2016-07-30] MEDS: MINERAL OIL/PETROL OINT 396 GM JAR TP SCH ×2 (16:30→21:21)
--- NOTE | 2016-07-30 16:34 | NUR ---
Pt refused trach care, ostomy care, treatment on left great toe. He insisted that I did the treatment already this am before he left for dialysis. Explained benefits of receiving treament but he kept shaking his head.
[2016-07-30 19:52] VITALS: BP 125/84
[2016-07-30] MEDS: GABAPENTIN 100 MG CAPSULE PO SCH (21:22)
[2016-07-30] MEDS: TEMAZEPAM 15 MG CAPSULE PO SCH (21:22)
[2016-07-30] MEDS: MONTELUKAST SODIUM (10MG) 10 MG TABLET PO SCH (21:22)
[2016-07-30] MEDS: INSULIN DETEMIR 100 UNIT/ML CARTRIDGE SQ SCH (21:23)
[2016-07-31] MEDS: ALBUTEROL FS 2.5 MG/3 ML VIAL.NEB NEB SCH ×4 (02:01→20:07)
[2016-07-31] MEDS: IPRATROPIUM NEB FS 0.5 MG/2.5 ML AMPUL.NEB IH SCH ×4 (02:01→20:07)
[2016-07-31] MEDS: PANTOPRAZOLE 40 MG TABLET.DR PO SCH (05:31)
[2016-07-31] MEDS: BLOOD SUGAR DIAGNOSTIC 1 EACH STRIP VI SCH ×4 (07:30→21:58)
[2016-07-31 07:55] VITALS: BP 128/78
[2016-07-31] MEDS: BUDESONIDE RESPULE INH 0.5 MG/2 ML AMPUL.NEB IH SCH ×2 (08:20→20:25)
[2016-07-31] MEDS: DOCUSATE SODIUM 100 MG CAPSULE PO SCH (09:05)
[2016-07-31] MEDS: POLYVINYL ALCOHOL 15 ML BOTTLE EACHEYE SCH ×4 (09:05→21:56)
[2016-07-31] MEDS: PROSOURCE / PROSTAT (PYXIS) 30 ML UDC PO SCH ×3 (09:05→17:41)
[2016-07-31] MEDS: SITAGLIPTIN PHOSPHATE 25 MG TABLET PO SCH (09:06)
[2016-07-31] MEDS: RENAL NOVASOURCE (8OZ) 1 EA BOX PO SCH (09:06)
[2016-07-31] MEDS: VIT B CMPLX 3/FA/VIT C/BIOTIN 1 TAB TABLET PO SCH (09:06)
[2016-07-31] MEDS: NEOMY SULF/BACITRAC ZN/POLY 15 GM TUBE TP SCH ×2 (09:07→21:57)
[2016-07-31] MEDS: ASCORBIC ACID 500 MG TABLET PO SCH (09:07)
[2016-07-31] MEDS: MINERAL OIL/PETROL OINT 396 GM JAR TP SCH ×2 (09:07→21:57)
[2016-07-31] MEDS: HYDROGEN PEROXIDE 480 ML BOTTLE TP SCH ×2 (09:07→21:57)
[2016-07-31] MEDS: SERTRALINE HCL 25 MG TABLET PO SCH (09:07)
[2016-07-31] MEDS: BACI/NEOM/POLY B OINT PKT 1 UDPKT PACKET TP SCH ×2 (09:07→21:57)
[2016-07-31] MEDS: ZINC OXIDE 56.7 GM TUBE TP SCH ×2 (09:07→21:57)
[2016-07-31] MEDS: INSULIN LISPRO/ASPART 100 UNIT/ML CARTRIDGE SQ PRN ×3 (09:08→21:59)
[2016-07-31] MEDS: HEPARIN SODIUM, PORCINE 5000 UNITS/1 ML VIAL SQ SCH ×2 (09:13→21:57)
--- NOTE | 2016-07-31 15:32 | NUR ---
Resident wanted to speak to the SW. Resident stated that he is very unhappy with the way that his toes are pointing inward. SW explained to him that Dr. Eli (home theater expert) came some time ago to talk to him about this but resident stated that he didn't care and remained upset. He stated that he wants to kamille. SW stated that she will obtain legal resources for resident and SW will follow up with nursing home manager. Charge nurse notified. Resident also stated that he needs to have his toe nails cut and SW informed Dr. Jones.
--- NOTE | 2016-07-31 19:18 | NUR ---
Seen and examined by Radha Petty NP for Dr. Gardner, engineer design and construction, NNO given. Radha notified of weight gain of 11.6 in a month ( June 176.8 - July 188.4), however patient with fluctuating weight due to dialysis. Dietitian recommending to DC Prostat TID but will inform Dietary at [facility] if Albumin level is normal that will support discontinuation of Prostat. Endorsed to call [facility] in AM. Endorsed to reweigh patient after dialysis tomorrow.
[2016-07-31 20:11] VITALS: BP 131/91
[2016-07-31] MEDS: NAPROXEN 500 MG TABLET PO PRN (20:54)
[2016-07-31] MEDS: GUAIFENESIN/D-METHORPHAN HB 5 ML UDC PO PRN (20:54)
[2016-07-31] MEDS: ONDANSETRON 4 MG TAB.RAPDIS PO PRN (20:55)
[2016-07-31] MEDS: GABAPENTIN 100 MG CAPSULE PO SCH (21:57)
[2016-07-31] MEDS: MONTELUKAST SODIUM (10MG) 10 MG TABLET PO SCH (21:58)
[2016-07-31] MEDS: TEMAZEPAM 15 MG CAPSULE PO SCH (21:58)
[2016-07-31] MEDS: INSULIN DETEMIR 100 UNIT/ML CARTRIDGE SQ SCH (21:58)
[2016-08-01] MEDS: IPRATROPIUM NEB FS 0.5 MG/2.5 ML AMPUL.NEB IH SCH ×4 (01:03→20:22)
[2016-08-01] MEDS: ALBUTEROL FS 2.5 MG/3 ML VIAL.NEB NEB SCH ×4 (01:04→20:22)
[2016-08-01] MEDS: PANTOPRAZOLE 40 MG TABLET.DR PO SCH (05:43)
[2016-08-01] MEDS: BLOOD SUGAR DIAGNOSTIC 1 EACH STRIP VI SCH ×4 (06:51→21:19)
[2016-08-01] MEDS: INSULIN LISPRO/ASPART 100 UNIT/ML CARTRIDGE SQ PRN ×3 (06:52→21:20)
[2016-08-01 07:57] VITALS: BP 133/65
[2016-08-01] MEDS: BUDESONIDE RESPULE INH 0.5 MG/2 ML AMPUL.NEB IH SCH ×2 (08:10→20:45)
[2016-08-01] MEDS: POLYVINYL ALCOHOL 15 ML BOTTLE EACHEYE SCH ×4 (08:45→21:26)
[2016-08-01] MEDS: SITAGLIPTIN PHOSPHATE 25 MG TABLET PO SCH (08:45)
[2016-08-01] MEDS: DOCUSATE SODIUM 100 MG CAPSULE PO SCH (08:45)
[2016-08-01] MEDS: NAPROXEN 500 MG TABLET PO PRN ×2 (08:46→21:22)
[2016-08-01] MEDS: SERTRALINE HCL 25 MG TABLET PO SCH (08:46)
[2016-08-01] MEDS: ASCORBIC ACID 500 MG TABLET PO SCH (08:46)
[2016-08-01] MEDS: PROSOURCE / PROSTAT (PYXIS) 30 ML UDC PO SCH ×3 (08:46→17:23)
[2016-08-01] MEDS: VIT B CMPLX 3/FA/VIT C/BIOTIN 1 TAB TABLET PO SCH (08:46)
[2016-08-01] MEDS: HEPARIN SODIUM, PORCINE 5000 UNITS/1 ML VIAL SQ SCH ×2 (08:46→21:17)
[2016-08-01] MEDS: GUAIFENESIN/D-METHORPHAN HB 5 ML UDC PO PRN ×2 (08:46→17:23)
[2016-08-01] MEDS: RENAL NOVASOURCE (8OZ) 1 EA BOX PO SCH (08:46)
[2016-08-01] MEDS: MINERAL OIL/PETROL OINT 396 GM JAR TP SCH ×2 (14:00→21:17)
[2016-08-01] MEDS: NEOMY SULF/BACITRAC ZN/POLY 15 GM TUBE TP SCH ×2 (14:00→21:17)
[2016-08-01] MEDS: HYDROGEN PEROXIDE 480 ML BOTTLE TP SCH ×2 (14:00→21:17)
[2016-08-01] MEDS: BACI/NEOM/POLY B OINT PKT 1 UDPKT PACKET TP SCH ×2 (14:00→21:17)
[2016-08-01] MEDS: ZINC OXIDE 56.7 GM TUBE TP SCH ×2 (14:00→21:18)
--- NOTE | 2016-08-01 15:47 | NUR ---
Informed general merchandise manager that resident is upset about his toes and was told to contact CNO. Informed CNO about resident and the fact that he wants to kamille previous catalog library assistant. Will await response from CNO regarding speaking to the resident. SW spoke to the resident and he stated that he was okay with waiting. SW will follow up.
--- NOTE | 2016-08-01 18:18 | NUR ---
RN NOTES Patient weight after dialysis is 164.3 lbs. Scrap Breaker aware about weight change. She said she will F/U on Friday. Requested Most recent labs from [facility]. They said they sondra blood today and labs will be available tomorrow. Will endorse to RN to F/U
--- NOTE | 2016-08-01 19:02 | NUR ---
Patient had a dialyisis today at [facility]. Patient is stable. No bleeding from the site noted.
[2016-08-01 19:48] VITALS: BP 122/70
[2016-08-01] MEDS: MONTELUKAST SODIUM (10MG) 10 MG TABLET PO SCH (21:18)
[2016-08-01] MEDS: INSULIN DETEMIR 100 UNIT/ML CARTRIDGE SQ SCH (21:18)
[2016-08-01] MEDS: GABAPENTIN 100 MG CAPSULE PO SCH (21:18)
[2016-08-01] MEDS: TEMAZEPAM 15 MG CAPSULE PO SCH (21:18)
[2016-08-02] MEDS: GUAIFENESIN/D-METHORPHAN HB 5 ML UDC PO PRN ×3 (00:06→16:54)
[2016-08-02] MEDS: ALBUTEROL FS 2.5 MG/3 ML VIAL.NEB NEB SCH ×4 (01:09→20:06)
[2016-08-02] MEDS: IPRATROPIUM NEB FS 0.5 MG/2.5 ML AMPUL.NEB IH SCH ×4 (01:09→20:06)
[2016-08-02] MEDS: PANTOPRAZOLE 40 MG TABLET.DR PO SCH (05:47)
[2016-08-02] MEDS: BLOOD SUGAR DIAGNOSTIC 1 EACH STRIP VI SCH ×4 (06:47→21:56)
[2016-08-02] MEDS: INSULIN LISPRO/ASPART 100 UNIT/ML CARTRIDGE SQ PRN ×4 (06:48→21:57)
[2016-08-02 07:49] VITALS: BP 144/78
[2016-08-02] MEDS: DOCUSATE SODIUM 100 MG CAPSULE PO SCH (08:06)
[2016-08-02] MEDS: RENAL NOVASOURCE (8OZ) 1 EA BOX PO SCH (08:06)
[2016-08-02] MEDS: SERTRALINE HCL 25 MG TABLET PO SCH (08:06)
[2016-08-02] MEDS: ASCORBIC ACID 500 MG TABLET PO SCH (08:06)
[2016-08-02] MEDS: POLYVINYL ALCOHOL 15 ML BOTTLE EACHEYE SCH ×4 (08:06→21:54)
[2016-08-02] MEDS: SITAGLIPTIN PHOSPHATE 25 MG TABLET PO SCH (08:06)
[2016-08-02] MEDS: PROSOURCE / PROSTAT (PYXIS) 30 ML UDC PO SCH ×3 (08:06→16:28)
[2016-08-02] MEDS: VIT B CMPLX 3/FA/VIT C/BIOTIN 1 TAB TABLET PO SCH (08:06)
[2016-08-02] MEDS: HYDROGEN PEROXIDE 480 ML BOTTLE TP SCH ×2 (08:07→21:55)
[2016-08-02] MEDS: HEPARIN SODIUM, PORCINE 5000 UNITS/1 ML VIAL SQ SCH ×2 (08:07→21:55)
[2016-08-02] MEDS: MINERAL OIL/PETROL OINT 396 GM JAR TP SCH ×2 (08:07→21:55)
[2016-08-02] MEDS: BUDESONIDE RESPULE INH 0.5 MG/2 ML AMPUL.NEB IH SCH ×2 (09:07→20:06)
--- NOTE | 2016-08-02 09:10 | NUR ---
Seen and examined by Dr. Helen Pireto. NNO given, however Dr. Prieto spoke with resident at great length concerning his toes. SSD also present in this conversation.
--- NOTE | 2016-08-02 09:15 | NUR ---
Dr. Helen Prieto spoke with the resident regarding his toes. Charge nurse was also present. Resident explained to her that they are swollen and Dr. Helen Prieto stated that they do not look swollen. She stated that they are contracted and that is the reason why they are pointing inwards. She explained to him that he has not used his feet however resident became agitated and stated that his feet are like that because "the other political consultant messed them up." Dr. Prieto stated to him that his feet are not like that because of something the political consultant did however, he still insisted on getting someone to help him call a drivability technician. BRAD Kendrick was notified.
[2016-08-02] MEDS: BISACODYL SUPP (10 MG) 10 MG/SUPP.RECT SUPP.RECT RC PRN (10:27)
[2016-08-02] MEDS: MAG HYDROX/AL HYDROX/SIMETH 30 ML UDC PO PRN (10:45)
[2016-08-02] MEDS: NEOMY SULF/BACITRAC ZN/POLY 15 GM TUBE TP SCH ×2 (16:27→21:55)
[2016-08-02] MEDS: BACI/NEOM/POLY B OINT PKT 1 UDPKT PACKET TP SCH ×2 (16:28→21:55)
[2016-08-02] MEDS: ZINC OXIDE 56.7 GM TUBE TP SCH ×2 (16:28→21:55)
[2016-08-02 19:41] VITALS: BP 120/70
[2016-08-02] MEDS: GABAPENTIN 100 MG CAPSULE PO SCH (21:55)
[2016-08-02] MEDS: INSULIN DETEMIR 100 UNIT/ML CARTRIDGE SQ SCH (21:56)
[2016-08-02] MEDS: TEMAZEPAM 15 MG CAPSULE PO SCH (21:56)
[2016-08-02] MEDS: MONTELUKAST SODIUM (10MG) 10 MG TABLET PO SCH (21:56)
[2016-08-02] MEDS: NAPROXEN 500 MG TABLET PO PRN (21:58)
[2016-08-03] MEDS: IPRATROPIUM NEB FS 0.5 MG/2.5 ML AMPUL.NEB IH SCH ×4 (01:13→19:31)
[2016-08-03] MEDS: ALBUTEROL FS 2.5 MG/3 ML VIAL.NEB NEB SCH ×4 (01:13→19:31)
[2016-08-03] MEDS: PANTOPRAZOLE 40 MG TABLET.DR PO SCH (05:18)
[2016-08-03] MEDS: INSULIN LISPRO/ASPART 100 UNIT/ML CARTRIDGE SQ PRN ×3 (06:56→23:35)
[2016-08-03] MEDS: BLOOD SUGAR DIAGNOSTIC 1 EACH STRIP VI SCH ×4 (06:56→21:28)
[2016-08-03 07:41] VITALS: BP 115/74
[2016-08-03] MEDS: SITAGLIPTIN PHOSPHATE 25 MG TABLET PO SCH (08:05)
[2016-08-03] MEDS: SERTRALINE HCL 25 MG TABLET PO SCH (08:05)
[2016-08-03] MEDS: ASCORBIC ACID 500 MG TABLET PO SCH (08:05)
[2016-08-03] MEDS: POLYVINYL ALCOHOL 15 ML BOTTLE EACHEYE SCH ×4 (08:05→21:00)
[2016-08-03] MEDS: PROSOURCE / PROSTAT (PYXIS) 30 ML UDC PO SCH ×3 (08:05→17:05)
[2016-08-03] MEDS: RENAL NOVASOURCE (8OZ) 1 EA BOX PO SCH (08:05)
[2016-08-03] MEDS: DOCUSATE SODIUM 100 MG CAPSULE PO SCH (08:05)
[2016-08-03] MEDS: VIT B CMPLX 3/FA/VIT C/BIOTIN 1 TAB TABLET PO SCH (08:05)
[2016-08-03] MEDS: MINERAL OIL/PETROL OINT 396 GM JAR TP SCH ×2 (08:06→21:00)
[2016-08-03] MEDS: HEPARIN SODIUM, PORCINE 5000 UNITS/1 ML VIAL SQ SCH ×2 (08:06→23:33)
[2016-08-03] MEDS: GUAIFENESIN/D-METHORPHAN HB 5 ML UDC PO PRN ×2 (08:06→21:48)
[2016-08-03] MEDS: BUDESONIDE RESPULE INH 0.5 MG/2 ML AMPUL.NEB IH SCH ×2 (09:28→20:35)
--- NOTE | 2016-08-03 14:00 | NUR ---
Resident returned back from dialysis, condition stable accompanied by ambulance staff.
[2016-08-03] MEDS: NEOMY SULF/BACITRAC ZN/POLY 15 GM TUBE TP SCH ×2 (17:04→21:00)
[2016-08-03] MEDS: HYDROGEN PEROXIDE 480 ML BOTTLE TP SCH ×2 (17:04→21:00)
[2016-08-03] MEDS: BACI/NEOM/POLY B OINT PKT 1 UDPKT PACKET TP SCH ×2 (17:05→21:00)
[2016-08-03] MEDS: ZINC OXIDE 56.7 GM TUBE TP SCH ×2 (17:05→21:00)
[2016-08-03 19:37] VITALS: BP 125/76
[2016-08-03] MEDS: TEMAZEPAM 15 MG CAPSULE PO SCH (22:00)
[2016-08-03] MEDS: INSULIN DETEMIR 100 UNIT/ML CARTRIDGE SQ SCH (22:00)
[2016-08-03] MEDS: MONTELUKAST SODIUM (10MG) 10 MG TABLET PO SCH (22:00)
[2016-08-03] MEDS: GABAPENTIN 100 MG CAPSULE PO SCH (22:00)
--- NOTE | 2016-08-03 22:00 | NUR ---
RESTORIL ADMINISTERED, DISCARDED MEDICATION LABEL TOO SOON, DID NOT SCAN LABEL
[2016-08-04] MEDS: ALBUTEROL FS 2.5 MG/3 ML VIAL.NEB NEB SCH ×4 (01:33→19:36)
[2016-08-04] MEDS: IPRATROPIUM NEB FS 0.5 MG/2.5 ML AMPUL.NEB IH SCH ×4 (01:33→19:36)
[2016-08-04] MEDS: PANTOPRAZOLE 40 MG TABLET.DR PO SCH (06:23)
[2016-08-04] MEDS: BLOOD SUGAR DIAGNOSTIC 1 EACH STRIP VI SCH ×3 (06:26→21:39)
[2016-08-04] MEDS: INSULIN LISPRO/ASPART 100 UNIT/ML CARTRIDGE SQ PRN (06:30)
--- NOTE | 2016-08-04 06:31 | NUR ---
NO INSULIN COVERAGE, BG 94 MG/DL
[2016-08-04 07:59] VITALS: BP 121/71
[2016-08-04] MEDS: VIT B CMPLX 3/FA/VIT C/BIOTIN 1 TAB TABLET PO SCH (08:42)
[2016-08-04] MEDS: SERTRALINE HCL 25 MG TABLET PO SCH (08:42)
[2016-08-04] MEDS: ASCORBIC ACID 500 MG TABLET PO SCH (08:42)
[2016-08-04] MEDS: POLYVINYL ALCOHOL 15 ML BOTTLE EACHEYE SCH ×4 (08:42→21:39)
[2016-08-04] MEDS: RENAL NOVASOURCE (8OZ) 1 EA BOX PO SCH (08:42)
[2016-08-04] MEDS: SITAGLIPTIN PHOSPHATE 25 MG TABLET PO SCH (08:42)
[2016-08-04] MEDS: DOCUSATE SODIUM 100 MG CAPSULE PO SCH (08:42)
[2016-08-04] MEDS: PROSOURCE / PROSTAT (PYXIS) 30 ML UDC PO SCH ×3 (08:42→16:41)
[2016-08-04] MEDS: HEPARIN SODIUM, PORCINE 5000 UNITS/1 ML VIAL SQ SCH ×2 (08:50→21:39)
[2016-08-04] MEDS: BUDESONIDE RESPULE INH 0.5 MG/2 ML AMPUL.NEB IH SCH ×2 (08:50→21:29)
[2016-08-04] MEDS: ZINC OXIDE 56.7 GM TUBE TP SCH ×2 (09:00→21:40)
[2016-08-04] MEDS: BACI/NEOM/POLY B OINT PKT 1 UDPKT PACKET TP SCH ×2 (09:00→21:40)
[2016-08-04] MEDS: MINERAL OIL/PETROL OINT 396 GM JAR TP SCH ×2 (09:00→21:39)
[2016-08-04] MEDS: NEOMY SULF/BACITRAC ZN/POLY 15 GM TUBE TP SCH ×2 (09:00→21:40)
[2016-08-04] MEDS: HYDROGEN PEROXIDE 480 ML BOTTLE TP SCH ×2 (09:00→21:39)
[2016-08-04 19:58] VITALS: BP 144/84
[2016-08-04] MEDS: INSULIN DETEMIR 100 UNIT/ML CARTRIDGE SQ SCH (21:40)
[2016-08-04] MEDS: TEMAZEPAM 15 MG CAPSULE PO SCH (21:40)
[2016-08-04] MEDS: GABAPENTIN 100 MG CAPSULE PO SCH (21:40)
[2016-08-04] MEDS: MONTELUKAST SODIUM (10MG) 10 MG TABLET PO SCH (21:40)
[2016-08-05] MEDS: ALBUTEROL FS 2.5 MG/3 ML VIAL.NEB NEB SCH ×4 (00:46→19:30)
[2016-08-05] MEDS: IPRATROPIUM NEB FS 0.5 MG/2.5 ML AMPUL.NEB IH SCH ×4 (00:46→19:30)
[2016-08-05] MEDS: PANTOPRAZOLE 40 MG TABLET.DR PO SCH (05:20)
[2016-08-05] MEDS: BLOOD SUGAR DIAGNOSTIC 1 EACH STRIP VI SCH ×4 (07:30→21:41)
[2016-08-05] MEDS: NAPROXEN 500 MG TABLET PO PRN (08:00)
[2016-08-05] MEDS: ATARAX 25 MG PO PRN (08:00)
[2016-08-05] MEDS: GUAIFENESIN/D-METHORPHAN HB 5 ML UDC PO PRN ×2 (08:00→21:42)
[2016-08-05 08:19] VITALS: BP 117/78
[2016-08-05] MEDS: BUDESONIDE RESPULE INH 0.5 MG/2 ML AMPUL.NEB IH SCH ×2 (08:22→20:31)
[2016-08-05] MEDS: ASCORBIC ACID 500 MG TABLET PO SCH (08:31)
[2016-08-05] MEDS: POLYVINYL ALCOHOL 15 ML BOTTLE EACHEYE SCH ×4 (08:31→21:40)
[2016-08-05] MEDS: HEPARIN SODIUM, PORCINE 5000 UNITS/1 ML VIAL SQ SCH ×2 (08:31→21:40)
[2016-08-05] MEDS: RENAL NOVASOURCE (8OZ) 1 EA BOX PO SCH (08:31)
[2016-08-05] MEDS: SITAGLIPTIN PHOSPHATE 25 MG TABLET PO SCH (08:31)
[2016-08-05] MEDS: SERTRALINE HCL 25 MG TABLET PO SCH (08:31)
[2016-08-05] MEDS: VIT B CMPLX 3/FA/VIT C/BIOTIN 1 TAB TABLET PO SCH (08:31)
[2016-08-05] MEDS: PROSOURCE / PROSTAT (PYXIS) 30 ML UDC PO SCH ×3 (08:31→17:00)
[2016-08-05] MEDS: DOCUSATE SODIUM 100 MG CAPSULE PO SCH (08:31)
--- NOTE | 2016-08-05 12:30 | NUR ---
Kanwal assisted resident in participating in a phone interview with the office of social security and spoke with Ms. Mo ([phone] ext [phone]). Ms. Mo explained to resident that he does not qualify for social security benefits since he is in the hospital but does qualify for early assisted benefits. She stated that he can be receiving about $391/month. He stated to her that he used to receive soc sec benefits in the past but Ms. Mo explained to him that because he is in the hospital if he does qualify, he will only be getting $50/month. She suggested for him to apply for early assisted to receive the $391/month. Resident was in agreement with the plan. KANWAL notified Ms. Mo that is not able to leave the hospital and therefore cashing his checks is difficult. She stated that a family member can be a payee for him and Ms. Mo took down his brother's information. She instructed for him to go to his nearest social security office so that he can apply to be his payee. Ms. Mo did state that the brother needs a letter from his physician stating that resident is not able to cordova his checks or leave the hospital and SW will obtain the letter from resident's physician. KANWAL also called resident's brother Aly Aaron to notify him of this and he was in agreement with being the payee for resident. He stated that he would like the to mail him the letter to [address] [place] [address]. KANWAL will obtain the letter and will mail it out to resident's brother. He will then go to his nearest social security office to complete assignment of payee. After phone interview was over, resident also stated that he wants to talk to Dr. Gardner about possibility of removing trach. Resident stated that he has been here for a long time and wants to see about the possibility of going home. Charge nurse informed. Addendum: 08/07/16 at 1022 by JONNA KING mailed out letter to the resident's brother and called him to notify him that paperwork was sent out so that he can expect them in the mail. Appreciated the information. Also provided address of nearest social security office.
[2016-08-05] MEDS: INSULIN LISPRO/ASPART 100 UNIT/ML CARTRIDGE SQ PRN ×2 (13:04→17:49)
[2016-08-05] MEDS: ZINC OXIDE 56.7 GM TUBE TP SCH ×2 (15:00→21:41)
[2016-08-05] MEDS: BACI/NEOM/POLY B OINT PKT 1 UDPKT PACKET TP SCH ×2 (15:00→21:41)
[2016-08-05] MEDS: MINERAL OIL/PETROL OINT 396 GM JAR TP SCH ×2 (15:00→21:41)
[2016-08-05] MEDS: HYDROGEN PEROXIDE 480 ML BOTTLE TP SCH ×2 (15:00→21:41)
[2016-08-05] MEDS: NEOMY SULF/BACITRAC ZN/POLY 15 GM TUBE TP SCH ×2 (15:00→21:41)
--- NOTE | 2016-08-05 18:15 | NUR ---
Dietitian came to review caloric intake, made aware patient refused to eat dinner tonight but he ate good lunch. She recommended to give novasource supplement if patient refused meals. Endorsed.
--- NOTE | 2016-08-05 19:06 | NUR ---
INSPECTOR SCALES Radha Petty came to do rounds, patient complained of SOB. Made aware patient refused to eat dinner tonight. She ordered chest X ray now and wants to send chest x ray results indu when patient goes to dialysis center. Noted and carried out.
[2016-08-05 19:39] VITALS: BP 122/84
[2016-08-05] MEDS: GABAPENTIN 100 MG CAPSULE PO SCH (21:41)
[2016-08-05] MEDS: INSULIN DETEMIR 100 UNIT/ML CARTRIDGE SQ SCH (21:41)
[2016-08-05] MEDS: MONTELUKAST SODIUM (10MG) 10 MG TABLET PO SCH (21:41)
[2016-08-05] MEDS: TEMAZEPAM 15 MG CAPSULE PO SCH (21:41)
[2016-08-06] MEDS: IPRATROPIUM NEB FS 0.5 MG/2.5 ML AMPUL.NEB IH SCH ×4 (02:29→20:23)
[2016-08-06] MEDS: ALBUTEROL FS 2.5 MG/3 ML VIAL.NEB NEB SCH ×4 (02:29→20:23)
[2016-08-06] MEDS: PANTOPRAZOLE 40 MG TABLET.DR PO SCH (05:38)
[2016-08-06] MEDS: ATARAX 25 MG PO PRN ×2 (07:13→08:29)
[2016-08-06 08:13] VITALS: BP 135/91
[2016-08-06] MEDS: BUDESONIDE RESPULE INH 0.5 MG/2 ML AMPUL.NEB IH SCH ×2 (08:16→20:23)
[2016-08-06] MEDS: ERGOCALCIFEROL (VITAMIN D 2) 50,000 UNIT CAPSULE PO SCH (08:27)
[2016-08-06] MEDS: SITAGLIPTIN PHOSPHATE 25 MG TABLET PO SCH (08:27)
[2016-08-06] MEDS: DOCUSATE SODIUM 100 MG CAPSULE PO SCH (08:27)
[2016-08-06] MEDS: ASCORBIC ACID 500 MG TABLET PO SCH (08:27)
[2016-08-06] MEDS: POLYVINYL ALCOHOL 15 ML BOTTLE EACHEYE SCH ×4 (08:27→21:26)
[2016-08-06] MEDS: VIT B CMPLX 3/FA/VIT C/BIOTIN 1 TAB TABLET PO SCH (08:27)
[2016-08-06] MEDS: BLOOD SUGAR DIAGNOSTIC 1 EACH STRIP VI SCH ×4 (08:27→21:27)
[2016-08-06] MEDS: PROSOURCE / PROSTAT (PYXIS) 30 ML UDC PO SCH ×3 (08:27→17:00)
[2016-08-06] MEDS: RENAL NOVASOURCE (8OZ) 1 EA BOX PO SCH (08:27)
[2016-08-06] MEDS: GUAIFENESIN/D-METHORPHAN HB 5 ML UDC PO PRN (08:28)
[2016-08-06] MEDS: HEPARIN SODIUM, PORCINE 5000 UNITS/1 ML VIAL SQ SCH ×2 (08:28→21:26)
[2016-08-06] MEDS: SERTRALINE HCL 25 MG TABLET PO SCH (08:28)
[2016-08-06] MEDS: NAPROXEN 500 MG TABLET PO PRN (08:29)
[2016-08-06] MEDS: MINERAL OIL/PETROL OINT 396 GM JAR TP SCH ×2 (09:00→21:26)
--- NOTE | 2016-08-06 10:10 | NUR ---
Seen and examined by Dr Gardner with no new order.
[2016-08-06] MEDS: BACI/NEOM/POLY B OINT PKT 1 UDPKT PACKET TP SCH ×2 (15:00→21:26)
[2016-08-06] MEDS: HYDROGEN PEROXIDE 480 ML BOTTLE TP SCH ×2 (15:00→21:26)
[2016-08-06] MEDS: NEOMY SULF/BACITRAC ZN/POLY 15 GM TUBE TP SCH ×2 (15:00→21:26)
[2016-08-06] MEDS: ZINC OXIDE 56.7 GM TUBE TP SCH ×2 (15:00→21:26)
--- NOTE | 2016-08-06 15:27 | NUR ---
Social Service Section of [employer] assessment (2nd quarter) completed. Resident is alert and communicative. He would like to be discharged home without the trach when medically stable and wants to have discussion with Dr. Gardner. Resident continues to have dialysis 3x/week on Tuesdays, and Saturdays. Resident will soon start to receive early correction benefits.
[2016-08-06 19:38] VITALS: BP 123/80
[2016-08-06] MEDS: GABAPENTIN 100 MG CAPSULE PO SCH (21:26)
[2016-08-06] MEDS: MONTELUKAST SODIUM (10MG) 10 MG TABLET PO SCH (21:27)
[2016-08-06] MEDS: INSULIN DETEMIR 100 UNIT/ML CARTRIDGE SQ SCH (21:27)
[2016-08-06] MEDS: TEMAZEPAM 15 MG CAPSULE PO SCH (21:27)
[2016-08-07] MEDS: ALBUTEROL FS 2.5 MG/3 ML VIAL.NEB NEB SCH ×4 (01:30→19:40)
[2016-08-07] MEDS: IPRATROPIUM NEB FS 0.5 MG/2.5 ML AMPUL.NEB IH SCH ×4 (01:30→19:40)
[2016-08-07] MEDS: PANTOPRAZOLE 40 MG TABLET.DR PO SCH (05:40)
[2016-08-07] MEDS: BLOOD SUGAR DIAGNOSTIC 1 EACH STRIP VI SCH ×4 (07:39→21:43)
[2016-08-07] MEDS: INSULIN LISPRO/ASPART 100 UNIT/ML CARTRIDGE SQ PRN ×4 (07:40→21:52)
[2016-08-07 08:15] VITALS: BP 127/74
[2016-08-07] MEDS: BUDESONIDE RESPULE INH 0.5 MG/2 ML AMPUL.NEB IH SCH ×2 (08:45→19:40)
[2016-08-07] MEDS: SITAGLIPTIN PHOSPHATE 25 MG TABLET PO SCH (09:00)
[2016-08-07] MEDS: HEPARIN SODIUM, PORCINE 5000 UNITS/1 ML VIAL SQ SCH ×2 (09:00→20:49)
[2016-08-07] MEDS: POLYVINYL ALCOHOL 15 ML BOTTLE EACHEYE SCH ×4 (09:00→20:48)
[2016-08-07] MEDS: SERTRALINE HCL 25 MG TABLET PO SCH (09:00)
[2016-08-07] MEDS: VIT B CMPLX 3/FA/VIT C/BIOTIN 1 TAB TABLET PO SCH (09:00)
[2016-08-07] MEDS: RENAL NOVASOURCE (8OZ) 1 EA BOX PO SCH (09:00)
[2016-08-07] MEDS: DOCUSATE SODIUM 100 MG CAPSULE PO SCH (09:00)
[2016-08-07] MEDS: PROSOURCE / PROSTAT (PYXIS) 30 ML UDC PO SCH ×3 (09:00→17:15)
[2016-08-07] MEDS: ASCORBIC ACID 500 MG TABLET PO SCH (09:00)
[2016-08-07] MEDS: MINERAL OIL/PETROL OINT 396 GM JAR TP SCH ×2 (09:00→20:49)
--- NOTE | 2016-08-07 10:00 | NUR ---
Reminded Dr. Jones that resident wants his nails cut.
[2016-08-07] MEDS: GUAIFENESIN/D-METHORPHAN HB 5 ML UDC PO PRN ×2 (11:41→22:21)
[2016-08-07] MEDS: HYDROGEN PEROXIDE 480 ML BOTTLE TP SCH ×2 (17:13→20:49)
[2016-08-07] MEDS: NEOMY SULF/BACITRAC ZN/POLY 15 GM TUBE TP SCH (17:13)
[2016-08-07] MEDS: BACI/NEOM/POLY B OINT PKT 1 UDPKT PACKET TP SCH ×2 (17:14→20:50)
[2016-08-07] MEDS: ZINC OXIDE 56.7 GM TUBE TP SCH ×2 (17:14→20:51)
[2016-08-07 19:55] VITALS: BP 126/85
[2016-08-07] MEDS: TEMAZEPAM 15 MG CAPSULE PO SCH (21:42)
[2016-08-07] MEDS: GABAPENTIN 100 MG CAPSULE PO SCH (21:42)
[2016-08-07] MEDS: MONTELUKAST SODIUM (10MG) 10 MG TABLET PO SCH (21:42)
[2016-08-07] MEDS: INSULIN DETEMIR 100 UNIT/ML CARTRIDGE SQ SCH (21:43)
[2016-08-07] MEDS: NAPROXEN 500 MG TABLET PO PRN (22:21)
[2016-08-08] MEDS: ALBUTEROL FS 2.5 MG/3 ML VIAL.NEB NEB SCH ×4 (01:20→20:16)
[2016-08-08] MEDS: IPRATROPIUM NEB FS 0.5 MG/2.5 ML AMPUL.NEB IH SCH ×4 (01:20→20:16)
[2016-08-08] MEDS: PANTOPRAZOLE 40 MG TABLET.DR PO SCH (05:59)
--- NOTE | 2016-08-08 06:56 | NUR ---
Pt blood sugar 59mg/dl,alert,no dizziness .Gates juice given as ordered,will continue to monitor and will endorsed.
[2016-08-08] MEDS: BLOOD SUGAR DIAGNOSTIC 1 EACH STRIP VI SCH ×4 (06:58→21:08)
[2016-08-08] MEDS: INSULIN LISPRO/ASPART 100 UNIT/ML CARTRIDGE SQ PRN ×2 (06:59→08:18)
[2016-08-08 07:53] VITALS: BP 120/86
[2016-08-08] MEDS: VIT B CMPLX 3/FA/VIT C/BIOTIN 1 TAB TABLET PO SCH (08:15)
[2016-08-08] MEDS: ASCORBIC ACID 500 MG TABLET PO SCH (08:15)
[2016-08-08] MEDS: SERTRALINE HCL 25 MG TABLET PO SCH (08:15)
[2016-08-08] MEDS: RENAL NOVASOURCE (8OZ) 1 EA BOX PO SCH (08:15)
[2016-08-08] MEDS: SITAGLIPTIN PHOSPHATE 25 MG TABLET PO SCH (08:15)
[2016-08-08] MEDS: DOCUSATE SODIUM 100 MG CAPSULE PO SCH (08:15)
[2016-08-08] MEDS: POLYVINYL ALCOHOL 15 ML BOTTLE EACHEYE SCH ×4 (08:15→20:57)
[2016-08-08] MEDS: PROSOURCE / PROSTAT (PYXIS) 30 ML UDC PO SCH ×3 (08:15→17:00)
[2016-08-08] MEDS: GUAIFENESIN/D-METHORPHAN HB 5 ML UDC PO PRN (08:16)
[2016-08-08] MEDS: NAPROXEN 500 MG TABLET PO PRN (08:16)
[2016-08-08] MEDS: MINERAL OIL/PETROL OINT 396 GM JAR TP SCH ×2 (08:16→20:59)
[2016-08-08] MEDS: HEPARIN SODIUM, PORCINE 5000 UNITS/1 ML VIAL SQ SCH ×2 (08:16→20:59)
--- NOTE | 2016-08-08 08:25 | NUR ---
BYRON Forte reported that pt's blood sugar is now 134.
[2016-08-08] MEDS: BUDESONIDE RESPULE INH 0.5 MG/2 ML AMPUL.NEB IH SCH ×2 (08:48→20:32)
[2016-08-08] MEDS: HYDROGEN PEROXIDE 480 ML BOTTLE TP SCH ×2 (15:00→20:59)
[2016-08-08] MEDS: BACI/NEOM/POLY B OINT PKT 1 UDPKT PACKET TP SCH (15:00)
[2016-08-08] MEDS: ZINC OXIDE 56.7 GM TUBE TP SCH ×2 (15:30→20:59)
[2016-08-08 20:17] VITALS: BP 138/94
[2016-08-08] MEDS: GABAPENTIN 100 MG CAPSULE PO SCH (21:06)
[2016-08-08] MEDS: TEMAZEPAM 15 MG CAPSULE PO SCH (21:07)
[2016-08-08] MEDS: MONTELUKAST SODIUM (10MG) 10 MG TABLET PO SCH (21:07)
[2016-08-08] MEDS: INSULIN DETEMIR 100 UNIT/ML CARTRIDGE SQ SCH (21:08)
[2016-08-09] MEDS: ALBUTEROL FS 2.5 MG/3 ML VIAL.NEB NEB SCH ×4 (01:04→20:04)
[2016-08-09] MEDS: IPRATROPIUM NEB FS 0.5 MG/2.5 ML AMPUL.NEB IH SCH ×4 (01:04→20:04)
[2016-08-09] MEDS: GUAIFENESIN/D-METHORPHAN HB 5 ML UDC PO PRN ×3 (04:46→21:30)
--- NOTE | 2016-08-09 04:47 | NUR ---
2100 Robitussin dm 10 ml cough syrup given per patient request.
[2016-08-09] MEDS: PANTOPRAZOLE 40 MG TABLET.DR PO SCH (05:07)
[2016-08-09] MEDS: BLOOD SUGAR DIAGNOSTIC 1 EACH STRIP VI SCH ×4 (06:52→21:30)
[2016-08-09] MEDS: INSULIN LISPRO/ASPART 100 UNIT/ML CARTRIDGE SQ PRN ×4 (06:53→21:31)
[2016-08-09 07:50] VITALS: BP 156/80
[2016-08-09] MEDS: BUDESONIDE RESPULE INH 0.5 MG/2 ML AMPUL.NEB IH SCH ×2 (08:03→20:20)
[2016-08-09] MEDS: PROSOURCE / PROSTAT (PYXIS) 30 ML UDC PO SCH ×3 (08:25→16:55)
[2016-08-09] MEDS: POLYVINYL ALCOHOL 15 ML BOTTLE EACHEYE SCH ×4 (08:25→21:28)
[2016-08-09] MEDS: RENAL NOVASOURCE (8OZ) 1 EA BOX PO SCH (08:25)
[2016-08-09] MEDS: ASCORBIC ACID 500 MG TABLET PO SCH (08:25)
[2016-08-09] MEDS: VIT B CMPLX 3/FA/VIT C/BIOTIN 1 TAB TABLET PO SCH (08:25)
[2016-08-09] MEDS: SITAGLIPTIN PHOSPHATE 25 MG TABLET PO SCH (08:25)
[2016-08-09] MEDS: SERTRALINE HCL 25 MG TABLET PO SCH (08:25)
[2016-08-09] MEDS: DOCUSATE SODIUM 100 MG CAPSULE PO SCH (08:25)
[2016-08-09] MEDS: MINERAL OIL/PETROL OINT 396 GM JAR TP SCH ×2 (08:26→21:29)
[2016-08-09] MEDS: HEPARIN SODIUM, PORCINE 5000 UNITS/1 ML VIAL SQ SCH ×2 (08:26→21:29)
[2016-08-09] MEDS: HYDROGEN PEROXIDE 480 ML BOTTLE TP SCH ×2 (16:55→21:29)
[2016-08-09] MEDS: ZINC OXIDE 56.7 GM TUBE TP SCH ×2 (16:55→21:29)
[2016-08-09 20:01] VITALS: BP 139/72
[2016-08-09] MEDS: TEMAZEPAM 15 MG CAPSULE PO SCH (21:29)
[2016-08-09] MEDS: GABAPENTIN 100 MG CAPSULE PO SCH (21:29)
[2016-08-09] MEDS: MONTELUKAST SODIUM (10MG) 10 MG TABLET PO SCH (21:29)
[2016-08-09] MEDS: INSULIN DETEMIR 100 UNIT/ML CARTRIDGE SQ SCH (21:30)
[2016-08-10] MEDS: IPRATROPIUM NEB FS 0.5 MG/2.5 ML AMPUL.NEB IH SCH ×4 (01:48→20:25)
[2016-08-10] MEDS: ALBUTEROL FS 2.5 MG/3 ML VIAL.NEB NEB SCH ×4 (01:48→20:25)
[2016-08-10] MEDS: PANTOPRAZOLE 40 MG TABLET.DR PO SCH (06:42)
[2016-08-10] MEDS: BLOOD SUGAR DIAGNOSTIC 1 EACH STRIP VI SCH ×4 (06:42→21:09)
[2016-08-10 07:46] VITALS: BP 127/90
[2016-08-10] MEDS: POLYVINYL ALCOHOL 15 ML BOTTLE EACHEYE SCH ×4 (08:04→20:57)
[2016-08-10] MEDS: SERTRALINE HCL 25 MG TABLET PO SCH (08:04)
[2016-08-10] MEDS: VIT B CMPLX 3/FA/VIT C/BIOTIN 1 TAB TABLET PO SCH (08:04)
[2016-08-10] MEDS: PROSOURCE / PROSTAT (PYXIS) 30 ML UDC PO SCH ×3 (08:04→16:54)
[2016-08-10] MEDS: DOCUSATE SODIUM 100 MG CAPSULE PO SCH (08:04)
[2016-08-10] MEDS: SITAGLIPTIN PHOSPHATE 25 MG TABLET PO SCH (08:04)
[2016-08-10] MEDS: RENAL NOVASOURCE (8OZ) 1 EA BOX PO SCH (08:04)
[2016-08-10] MEDS: ASCORBIC ACID 500 MG TABLET PO SCH (08:04)
[2016-08-10] MEDS: HEPARIN SODIUM, PORCINE 5000 UNITS/1 ML VIAL SQ SCH ×2 (08:05→20:58)
[2016-08-10] MEDS: MINERAL OIL/PETROL OINT 396 GM JAR TP SCH ×2 (08:05→20:58)
[2016-08-10] MEDS: GUAIFENESIN/D-METHORPHAN HB 5 ML UDC PO PRN ×2 (08:05→21:10)
[2016-08-10] MEDS: BUDESONIDE RESPULE INH 0.5 MG/2 ML AMPUL.NEB IH SCH ×2 (08:15→20:59)
[2016-08-10] MEDS: MAG HYDROX/AL HYDROX/SIMETH 30 ML UDC PO PRN (14:25)
[2016-08-10] MEDS: ZINC OXIDE 56.7 GM TUBE TP SCH ×2 (16:54→20:58)
[2016-08-10] MEDS: HYDROGEN PEROXIDE 480 ML BOTTLE TP SCH ×2 (16:54→20:58)
[2016-08-10] MEDS: INSULIN LISPRO/ASPART 100 UNIT/ML CARTRIDGE SQ PRN (16:55)
[2016-08-10] MEDS: ATARAX 25 MG PO PRN (18:47)
[2016-08-10] MEDS: TEMAZEPAM 15 MG CAPSULE PO SCH (21:00)
[2016-08-10] MEDS: GABAPENTIN 100 MG CAPSULE PO SCH (21:00)
[2016-08-10] MEDS: MONTELUKAST SODIUM (10MG) 10 MG TABLET PO SCH (21:00)
[2016-08-10] MEDS: INSULIN DETEMIR 100 UNIT/ML CARTRIDGE SQ SCH (21:09)
[2016-08-10] MEDS: NAPROXEN 500 MG TABLET PO PRN (21:10)
[2016-08-11] MEDS: IPRATROPIUM NEB FS 0.5 MG/2.5 ML AMPUL.NEB IH SCH ×4 (01:48→19:30)
[2016-08-11] MEDS: ALBUTEROL FS 2.5 MG/3 ML VIAL.NEB NEB SCH ×4 (01:48→19:30)
[2016-08-11 02:18] VITALS: BP 122/85
[2016-08-11] MEDS: PANTOPRAZOLE 40 MG TABLET.DR PO SCH (06:00)
[2016-08-11] MEDS: BLOOD SUGAR DIAGNOSTIC 1 EACH STRIP VI SCH ×4 (07:03→21:25)
[2016-08-11] MEDS: INSULIN LISPRO/ASPART 100 UNIT/ML CARTRIDGE SQ PRN ×3 (07:04→21:26)
[2016-08-11 08:00] VITALS: BP 133/84
[2016-08-11] MEDS: BUDESONIDE RESPULE INH 0.5 MG/2 ML AMPUL.NEB IH SCH ×2 (08:19→21:00)
[2016-08-11] MEDS: SITAGLIPTIN PHOSPHATE 25 MG TABLET PO SCH (09:24)
[2016-08-11] MEDS: ASCORBIC ACID 500 MG TABLET PO SCH (09:24)
[2016-08-11] MEDS: RENAL NOVASOURCE (8OZ) 1 EA BOX PO SCH (09:24)
[2016-08-11] MEDS: VIT B CMPLX 3/FA/VIT C/BIOTIN 1 TAB TABLET PO SCH (09:24)
[2016-08-11] MEDS: PROSOURCE / PROSTAT (PYXIS) 30 ML UDC PO SCH ×3 (09:24→17:00)
[2016-08-11] MEDS: ZINC OXIDE 56.7 GM TUBE TP SCH ×2 (09:24→20:43)
[2016-08-11] MEDS: MINERAL OIL/PETROL OINT 396 GM JAR TP SCH ×2 (09:24→20:43)
[2016-08-11] MEDS: DOCUSATE SODIUM 100 MG CAPSULE PO SCH (09:24)
[2016-08-11] MEDS: SERTRALINE HCL 25 MG TABLET PO SCH (09:24)
[2016-08-11] MEDS: HYDROGEN PEROXIDE 480 ML BOTTLE TP SCH ×2 (09:24→20:43)
[2016-08-11] MEDS: HEPARIN SODIUM, PORCINE 5000 UNITS/1 ML VIAL SQ SCH ×2 (09:24→20:43)
[2016-08-11] MEDS: POLYVINYL ALCOHOL 15 ML BOTTLE EACHEYE SCH ×4 (09:24→20:39)
[2016-08-11] MEDS: GUAIFENESIN/D-METHORPHAN HB 5 ML UDC PO PRN ×2 (10:00→20:47)
[2016-08-11 20:00] VITALS: BP 131/91
[2016-08-11] MEDS: ATARAX 25 MG PO PRN (20:47)
[2016-08-11] MEDS: NAPROXEN 500 MG TABLET PO PRN (20:47)
[2016-08-11] MEDS: TEMAZEPAM 15 MG CAPSULE PO SCH (21:24)
[2016-08-11] MEDS: GABAPENTIN 100 MG CAPSULE PO SCH (21:24)
[2016-08-11] MEDS: MONTELUKAST SODIUM (10MG) 10 MG TABLET PO SCH (21:24)
[2016-08-11] MEDS: INSULIN DETEMIR 100 UNIT/ML CARTRIDGE SQ SCH (21:25)
[2016-08-12] MEDS: ALBUTEROL FS 2.5 MG/3 ML VIAL.NEB NEB SCH ×4 (02:25→20:23)
[2016-08-12] MEDS: IPRATROPIUM NEB FS 0.5 MG/2.5 ML AMPUL.NEB IH SCH ×4 (02:25→20:23)
[2016-08-12] MEDS: PANTOPRAZOLE 40 MG TABLET.DR PO SCH (05:54)
[2016-08-12] MEDS: BLOOD SUGAR DIAGNOSTIC 1 EACH STRIP VI SCH ×4 (07:37→21:23)
[2016-08-12] MEDS: INSULIN LISPRO/ASPART 100 UNIT/ML CARTRIDGE SQ PRN ×3 (07:38→18:29)
[2016-08-12 08:07] VITALS: BP 128/92
[2016-08-12] MEDS: SERTRALINE HCL 25 MG TABLET PO SCH (08:50)
[2016-08-12] MEDS: DOCUSATE SODIUM 100 MG CAPSULE PO SCH (08:50)
[2016-08-12] MEDS: POLYVINYL ALCOHOL 15 ML BOTTLE EACHEYE SCH ×4 (08:50→20:37)
[2016-08-12] MEDS: ASCORBIC ACID 500 MG TABLET PO SCH (08:50)
[2016-08-12] MEDS: VIT B CMPLX 3/FA/VIT C/BIOTIN 1 TAB TABLET PO SCH (08:50)
[2016-08-12] MEDS: RENAL NOVASOURCE (8OZ) 1 EA BOX PO SCH (08:50)
[2016-08-12] MEDS: PROSOURCE / PROSTAT (PYXIS) 30 ML UDC PO SCH ×3 (08:50→17:00)
[2016-08-12] MEDS: HEPARIN SODIUM, PORCINE 5000 UNITS/1 ML VIAL SQ SCH ×2 (08:50→20:38)
[2016-08-12] MEDS: SITAGLIPTIN PHOSPHATE 25 MG TABLET PO SCH (08:50)
[2016-08-12] MEDS: ZINC OXIDE 56.7 GM TUBE TP SCH ×2 (08:51→20:38)
[2016-08-12] MEDS: MINERAL OIL/PETROL OINT 396 GM JAR TP SCH ×2 (08:51→20:38)
[2016-08-12] MEDS: HYDROGEN PEROXIDE 480 ML BOTTLE TP SCH ×2 (08:51→20:38)
[2016-08-12] MEDS: BUDESONIDE RESPULE INH 0.5 MG/2 ML AMPUL.NEB IH SCH ×2 (08:59→20:23)
--- NOTE | 2016-08-12 18:17 | NUR ---
Blood sugar was 46. Pt alert and verbally responsive. He refused D50, explained risks and benefits but still refused. Pt eating dinner, also offered him orange juice which he drank. Blood sugar now 70.
--- NOTE | 2016-08-12 18:58 | NUR ---
Seen by ARNOL Petty. Pt said he feels like he is drowning in his secretions. ARNOL Petty examined him. Received order to give Levaquin 750 mg po today, then pharmacy to dose for 4 days, total of 5 days for sinusitis. Pt aware of new order.
[2016-08-12] MEDS ORDERED: LEVOFLOXACIN (750 MG) 750 MG TABLET PO ONE (19:00)
[2016-08-12 20:05] VITALS: BP 134/87
[2016-08-12] MEDS: ATARAX 25 MG PO PRN (20:43)
[2016-08-12] MEDS: GUAIFENESIN/D-METHORPHAN HB 5 ML UDC PO PRN (20:43)
[2016-08-12] MEDS: TEMAZEPAM 15 MG CAPSULE PO SCH (21:23)
[2016-08-12] MEDS: MONTELUKAST SODIUM (10MG) 10 MG TABLET PO SCH (21:23)
[2016-08-12] MEDS: INSULIN DETEMIR 100 UNIT/ML CARTRIDGE SQ SCH (21:23)
[2016-08-12] MEDS: GABAPENTIN 100 MG CAPSULE PO SCH (21:24)
[2016-08-13] MEDS: ALBUTEROL FS 2.5 MG/3 ML VIAL.NEB NEB SCH ×4 (01:10→20:24)
[2016-08-13] MEDS: IPRATROPIUM NEB FS 0.5 MG/2.5 ML AMPUL.NEB IH SCH ×4 (01:10→20:24)
[2016-08-13] MEDS: PANTOPRAZOLE 40 MG TABLET.DR PO SCH (06:12)
[2016-08-13 08:00] VITALS: BP 134/90
[2016-08-13] MEDS: VIT B CMPLX 3/FA/VIT C/BIOTIN 1 TAB TABLET PO SCH (08:18)
[2016-08-13] MEDS: POLYVINYL ALCOHOL 15 ML BOTTLE EACHEYE SCH ×4 (08:18→20:20)
[2016-08-13] MEDS: RENAL NOVASOURCE (8OZ) 1 EA BOX PO SCH (08:18)
[2016-08-13] MEDS: PROSOURCE / PROSTAT (PYXIS) 30 ML UDC PO SCH ×3 (08:18→17:22)
[2016-08-13] MEDS: DOCUSATE SODIUM 100 MG CAPSULE PO SCH (08:18)
[2016-08-13] MEDS: ERGOCALCIFEROL (VITAMIN D 2) 50,000 UNIT CAPSULE PO SCH (08:18)
[2016-08-13] MEDS: SITAGLIPTIN PHOSPHATE 25 MG TABLET PO SCH (08:18)
[2016-08-13] MEDS: BLOOD SUGAR DIAGNOSTIC 1 EACH STRIP VI SCH ×4 (08:18→21:05)
[2016-08-13] MEDS: HYDROGEN PEROXIDE 480 ML BOTTLE TP SCH ×2 (08:19→20:21)
[2016-08-13] MEDS: HEPARIN SODIUM, PORCINE 5000 UNITS/1 ML VIAL SQ SCH ×2 (08:19→20:21)
[2016-08-13] MEDS: MINERAL OIL/PETROL OINT 396 GM JAR TP SCH ×2 (08:19→20:21)
[2016-08-13] MEDS: SERTRALINE HCL 25 MG TABLET PO SCH (08:19)
[2016-08-13] MEDS: ASCORBIC ACID 500 MG TABLET PO SCH (08:19)
[2016-08-13] MEDS: NAPROXEN 500 MG TABLET PO PRN (08:20)
[2016-08-13] MEDS: ZINC OXIDE 56.7 GM TUBE TP SCH ×2 (08:20→20:21)
[2016-08-13] MEDS: GUAIFENESIN/D-METHORPHAN HB 5 ML UDC PO PRN ×2 (08:21→21:06)
[2016-08-13] MEDS: BUDESONIDE RESPULE INH 0.5 MG/2 ML AMPUL.NEB IH SCH ×2 (08:52→20:24)
--- NOTE | 2016-08-13 09:18 | NUR ---
Called Neel at the wound center (ext [phone] fax: [phone]) to notify him that Dr. Jones has not seen the patient and patient is requiring nail trimming. Stated that pt is out to dialysis today, , and Friday. He stated that he will remind Dr. Jones (paper cup machine tender) to see the patient.
--- NOTE | 2016-08-13 14:50 | NUR ---
Resident got his social security check in the mail. Check was addressed to resident's name. FERNANDO called Ms. Mo ([phone] ext [phone]) at the [place] SSI office to inquire if new check would be sent once brother jak's payee process. However, she did not answer and FERNANDO left her contact information. FERNANDO called the patient's brother to see if he received the documents in the mail but he did not answer and FERNANDO left him a message. Per resident, FERNANDO will hang on to check and FERNANDO will place his check in his personal file.
[2016-08-13] MEDS: BISACODYL SUPP (10 MG) 10 MG/SUPP.RECT SUPP.RECT RC PRN (15:30)
[2016-08-13] MEDS: LEVOFLOXACIN (500MG) 500 MG TABLET PO SCH (19:00)
[2016-08-13 19:38] VITALS: BP 131/85
[2016-08-13] MEDS: GABAPENTIN 100 MG CAPSULE PO SCH (21:04)
[2016-08-13] MEDS: TEMAZEPAM 15 MG CAPSULE PO SCH (21:05)
[2016-08-13] MEDS: MONTELUKAST SODIUM (10MG) 10 MG TABLET PO SCH (21:05)
[2016-08-13] MEDS: INSULIN DETEMIR 100 UNIT/ML CARTRIDGE SQ SCH (21:05)
[2016-08-13] MEDS: ATARAX 25 MG PO PRN (21:06)
[2016-08-14] MEDS: ALBUTEROL FS 2.5 MG/3 ML VIAL.NEB NEB SCH ×4 (01:23→20:01)
[2016-08-14] MEDS: IPRATROPIUM NEB FS 0.5 MG/2.5 ML AMPUL.NEB IH SCH ×4 (01:23→20:01)
[2016-08-14] MEDS: PANTOPRAZOLE 40 MG TABLET.DR PO SCH (05:49)
[2016-08-14 07:49] VITALS: BP 134/88
[2016-08-14] MEDS: BLOOD SUGAR DIAGNOSTIC 1 EACH STRIP VI SCH ×4 (08:19→21:25)
[2016-08-14] MEDS: DOCUSATE SODIUM 100 MG CAPSULE PO SCH (08:19)
[2016-08-14] MEDS: VIT B CMPLX 3/FA/VIT C/BIOTIN 1 TAB TABLET PO SCH (08:19)
[2016-08-14] MEDS: POLYVINYL ALCOHOL 15 ML BOTTLE EACHEYE SCH ×4 (08:19→20:52)
[2016-08-14] MEDS: RENAL NOVASOURCE (8OZ) 1 EA BOX PO SCH (08:19)
[2016-08-14] MEDS: SITAGLIPTIN PHOSPHATE 25 MG TABLET PO SCH (08:19)
[2016-08-14] MEDS: MINERAL OIL/PETROL OINT 396 GM JAR TP SCH ×2 (08:20→20:53)
[2016-08-14] MEDS: HEPARIN SODIUM, PORCINE 5000 UNITS/1 ML VIAL SQ SCH ×2 (08:20→20:53)
[2016-08-14] MEDS: ASCORBIC ACID 500 MG TABLET PO SCH (08:20)
[2016-08-14] MEDS: PROSOURCE / PROSTAT (PYXIS) 30 ML UDC PO SCH ×3 (08:20→17:10)
[2016-08-14] MEDS: SERTRALINE HCL 25 MG TABLET PO SCH (08:20)
[2016-08-14] MEDS: ZINC OXIDE 56.7 GM TUBE TP SCH ×2 (08:20→20:53)
[2016-08-14] MEDS: HYDROGEN PEROXIDE 480 ML BOTTLE TP SCH ×2 (08:20→20:53)
[2016-08-14] MEDS: BUDESONIDE RESPULE INH 0.5 MG/2 ML AMPUL.NEB IH SCH ×2 (08:25→20:19)
[2016-08-14] MEDS: GUAIFENESIN/D-METHORPHAN HB 5 ML UDC PO PRN ×2 (09:00→20:53)
[2016-08-14] MEDS: NAPROXEN 500 MG TABLET PO PRN (09:00)
[2016-08-14] MEDS: INSULIN LISPRO/ASPART 100 UNIT/ML CARTRIDGE SQ PRN ×3 (11:38→21:26)
[2016-08-14 19:40] VITALS: BP 132/86
[2016-08-14] MEDS: TRAMADOL HCL 50 MG TABLET PO PRN (20:54)
[2016-08-14] MEDS: GABAPENTIN 100 MG CAPSULE PO SCH (21:24)
[2016-08-14] MEDS: TEMAZEPAM 15 MG CAPSULE PO SCH (21:24)
[2016-08-14] MEDS: INSULIN DETEMIR 100 UNIT/ML CARTRIDGE SQ SCH (21:25)
[2016-08-14] MEDS: MONTELUKAST SODIUM (10MG) 10 MG TABLET PO SCH (21:25)
[2016-08-15] MEDS: ALBUTEROL FS 2.5 MG/3 ML VIAL.NEB NEB SCH ×4 (01:57→20:16)
[2016-08-15] MEDS: IPRATROPIUM NEB FS 0.5 MG/2.5 ML AMPUL.NEB IH SCH ×4 (01:57→20:16)
[2016-08-15] MEDS: PANTOPRAZOLE 40 MG TABLET.DR PO SCH (05:34)
[2016-08-15] MEDS: BLOOD SUGAR DIAGNOSTIC 1 EACH STRIP VI SCH ×4 (06:36→21:32)
[2016-08-15] MEDS: INSULIN LISPRO/ASPART 100 UNIT/ML CARTRIDGE SQ PRN ×2 (06:37→21:32)
[2016-08-15 07:42] VITALS: BP 133/95
[2016-08-15] MEDS: SITAGLIPTIN PHOSPHATE 25 MG TABLET PO SCH (08:32)
[2016-08-15] MEDS: PROSOURCE / PROSTAT (PYXIS) 30 ML UDC PO SCH ×3 (08:32→17:04)
[2016-08-15] MEDS: RENAL NOVASOURCE (8OZ) 1 EA BOX PO SCH (08:32)
[2016-08-15] MEDS: POLYVINYL ALCOHOL 15 ML BOTTLE EACHEYE SCH ×4 (08:32→21:08)
[2016-08-15] MEDS: VIT B CMPLX 3/FA/VIT C/BIOTIN 1 TAB TABLET PO SCH (08:32)
[2016-08-15] MEDS: DOCUSATE SODIUM 100 MG CAPSULE PO SCH (08:32)
[2016-08-15] MEDS: SERTRALINE HCL 25 MG TABLET PO SCH (08:33)
[2016-08-15] MEDS: MINERAL OIL/PETROL OINT 396 GM JAR TP SCH ×2 (08:33→21:08)
[2016-08-15] MEDS: ZINC OXIDE 56.7 GM TUBE TP SCH ×2 (08:33→21:08)
[2016-08-15] MEDS: ASCORBIC ACID 500 MG TABLET PO SCH (08:33)
[2016-08-15] MEDS: HEPARIN SODIUM, PORCINE 5000 UNITS/1 ML VIAL SQ SCH ×2 (08:33→21:08)
[2016-08-15] MEDS: HYDROGEN PEROXIDE 480 ML BOTTLE TP SCH ×2 (08:33→21:08)
[2016-08-15] MEDS: BUDESONIDE RESPULE INH 0.5 MG/2 ML AMPUL.NEB IH SCH ×2 (08:50→20:45)
[2016-08-15] MEDS: GUAIFENESIN/D-METHORPHAN HB 5 ML UDC PO PRN ×2 (09:32→21:09)
--- NOTE | 2016-08-15 10:50 | NUR ---
FERNANDO called resident's brother Aly who stated he received the documents. He stated that he has been busy at work and can go to the SSI office on Friday. FERNANDO informed him that resident received his first check but that he needs to apply to be the payee. SW to follow up next week.
[2016-08-15] MEDS: LEVOFLOXACIN (500MG) 500 MG TABLET PO SCH (19:00)
[2016-08-15 19:59] VITALS: BP 129/89
[2016-08-15] MEDS: ATARAX 25 MG PO PRN (21:09)
[2016-08-15] MEDS: MONTELUKAST SODIUM (10MG) 10 MG TABLET PO SCH (21:31)
[2016-08-15] MEDS: TEMAZEPAM 15 MG CAPSULE PO SCH (21:31)
[2016-08-15] MEDS: GABAPENTIN 100 MG CAPSULE PO SCH (21:31)
[2016-08-15] MEDS: INSULIN DETEMIR 100 UNIT/ML CARTRIDGE SQ SCH (21:32)
[2016-08-15] MEDS: NAPROXEN 500 MG TABLET PO PRN (21:33)
[2016-08-16] MEDS: IPRATROPIUM NEB FS 0.5 MG/2.5 ML AMPUL.NEB IH SCH ×4 (01:27→20:23)
[2016-08-16] MEDS: ALBUTEROL FS 2.5 MG/3 ML VIAL.NEB NEB SCH ×4 (01:27→20:23)
[2016-08-16] MEDS: PANTOPRAZOLE 40 MG TABLET.DR PO SCH (06:10)
[2016-08-16] MEDS: BLOOD SUGAR DIAGNOSTIC 1 EACH STRIP VI SCH ×4 (07:04→21:42)
[2016-08-16] MEDS: INSULIN LISPRO/ASPART 100 UNIT/ML CARTRIDGE SQ PRN ×4 (07:05→21:44)
[2016-08-16 07:48] VITALS: BP 135/78
[2016-08-16] MEDS: POLYVINYL ALCOHOL 15 ML BOTTLE EACHEYE SCH ×4 (08:33→21:40)
[2016-08-16] MEDS: SERTRALINE HCL 25 MG TABLET PO SCH (08:34)
[2016-08-16] MEDS: MINERAL OIL/PETROL OINT 396 GM JAR TP SCH ×2 (08:34→21:41)
[2016-08-16] MEDS: ASCORBIC ACID 500 MG TABLET PO SCH (08:34)
[2016-08-16] MEDS: PROSOURCE / PROSTAT (PYXIS) 30 ML UDC PO SCH ×3 (08:34→16:53)
[2016-08-16] MEDS: DOCUSATE SODIUM 100 MG CAPSULE PO SCH (08:34)
[2016-08-16] MEDS: HYDROGEN PEROXIDE 480 ML BOTTLE TP SCH ×2 (08:34→21:41)
[2016-08-16] MEDS: SITAGLIPTIN PHOSPHATE 25 MG TABLET PO SCH (08:34)
[2016-08-16] MEDS: VIT B CMPLX 3/FA/VIT C/BIOTIN 1 TAB TABLET PO SCH (08:34)
[2016-08-16] MEDS: RENAL NOVASOURCE (8OZ) 1 EA BOX PO SCH (08:34)
[2016-08-16] MEDS: HEPARIN SODIUM, PORCINE 5000 UNITS/1 ML VIAL SQ SCH ×2 (08:34→21:41)
[2016-08-16] MEDS: ZINC OXIDE 56.7 GM TUBE TP SCH ×2 (08:35→21:41)
[2016-08-16] MEDS: BUDESONIDE RESPULE INH 0.5 MG/2 ML AMPUL.NEB IH SCH ×2 (08:59→20:28)
--- NOTE | 2016-08-16 11:22 | NUR ---
Seen and examined by Dr. Barron Navarrete, reported to MD that resident's weight is fluctuating, gained 12 lbs from June (176 lbs) to July (188 lbs), reweight patient on 08/01/16 (164 lbs) taken post dialysis. Patient's face looks puffy and non compliant with fluid restrictions. NNO given at this time.
[2016-08-16] MEDS: BISACODYL SUPP (10 MG) 10 MG/SUPP.RECT SUPP.RECT RC PRN (12:14)
--- NOTE | 2016-08-16 15:10 | NUR ---
INTERDISCIPLINARY PLAN OF CARE CONFERENCE was held today. Resident's brother unable to attend. Dr. Gardner and the interdisciplinary team reviewed the current plan of care in detail. New orders were reviewed. Resident's weight fluctuation was discussed and resident will have vitamin D level checked on a day that he goes to dialysis. No other orders were given.
[2016-08-16 19:32] VITALS: BP 127/90
[2016-08-16] MEDS: MONTELUKAST SODIUM (10MG) 10 MG TABLET PO SCH (21:41)
[2016-08-16] MEDS: GABAPENTIN 100 MG CAPSULE PO SCH (21:41)
[2016-08-16] MEDS: TEMAZEPAM 15 MG CAPSULE PO SCH (21:41)
[2016-08-16] MEDS: GUAIFENESIN/D-METHORPHAN HB 5 ML UDC PO PRN (21:44)
--- NOTE | 2016-08-16 21:45 | NUR ---
Patient blood sugar is 54. Alert and responsive. Offered orange juice, pt complied. Will closely monitor. Levemir 10 units held at this time.
[2016-08-16] MEDS: INSULIN DETEMIR 100 UNIT/ML CARTRIDGE SQ SCH (21:46)
[2016-08-16] MEDS: NAPROXEN 500 MG TABLET PO PRN (21:53)
--- NOTE | 2016-08-16 22:50 | NUR ---
Blood sugar rechecked, 115. Alert, awake. No complaint at this time. Will continue to monitor.
[2016-08-17] MEDS: ATARAX 25 MG PO PRN (00:25)
[2016-08-17] MEDS: IPRATROPIUM NEB FS 0.5 MG/2.5 ML AMPUL.NEB IH SCH ×4 (01:18→19:36)
[2016-08-17] MEDS: ALBUTEROL FS 2.5 MG/3 ML VIAL.NEB NEB SCH ×4 (01:18→19:36)
[2016-08-17] MEDS: PANTOPRAZOLE 40 MG TABLET.DR PO SCH (05:42)
[2016-08-17] MEDS: BLOOD SUGAR DIAGNOSTIC 1 EACH STRIP VI SCH ×4 (06:58→21:51)
[2016-08-17] MEDS: INSULIN LISPRO/ASPART 100 UNIT/ML CARTRIDGE SQ PRN ×2 (06:59→21:51)
[2016-08-17 07:44] VITALS: BP 144/80
[2016-08-17] MEDS: ASCORBIC ACID 500 MG TABLET PO SCH (08:29)
[2016-08-17] MEDS: POLYVINYL ALCOHOL 15 ML BOTTLE EACHEYE SCH ×4 (08:29→21:49)
[2016-08-17] MEDS: VIT B CMPLX 3/FA/VIT C/BIOTIN 1 TAB TABLET PO SCH (08:29)
[2016-08-17] MEDS: SERTRALINE HCL 25 MG TABLET PO SCH (08:29)
[2016-08-17] MEDS: DOCUSATE SODIUM 100 MG CAPSULE PO SCH (08:29)
[2016-08-17] MEDS: SITAGLIPTIN PHOSPHATE 25 MG TABLET PO SCH (08:29)
[2016-08-17] MEDS: RENAL NOVASOURCE (8OZ) 1 EA BOX PO SCH (08:29)
[2016-08-17] MEDS: PROSOURCE / PROSTAT (PYXIS) 30 ML UDC PO SCH ×3 (08:29→17:00)
[2016-08-17] MEDS: MINERAL OIL/PETROL OINT 396 GM JAR TP SCH ×2 (08:31→21:50)
[2016-08-17] MEDS: ZINC OXIDE 56.7 GM TUBE TP SCH ×2 (08:31→21:50)
[2016-08-17] MEDS: HEPARIN SODIUM, PORCINE 5000 UNITS/1 ML VIAL SQ SCH ×2 (08:31→21:50)
[2016-08-17] MEDS: HYDROGEN PEROXIDE 480 ML BOTTLE TP SCH ×2 (08:31→21:50)
[2016-08-17] MEDS: BUDESONIDE RESPULE INH 0.5 MG/2 ML AMPUL.NEB IH SCH ×2 (09:00→21:55)
[2016-08-17 19:44] VITALS: BP 127/80
[2016-08-17] MEDS: MONTELUKAST SODIUM (10MG) 10 MG TABLET PO SCH (21:50)
[2016-08-17] MEDS: TEMAZEPAM 15 MG CAPSULE PO SCH (21:50)
[2016-08-17] MEDS: GABAPENTIN 100 MG CAPSULE PO SCH (21:50)
[2016-08-17] MEDS: INSULIN DETEMIR 100 UNIT/ML CARTRIDGE SQ SCH (21:51)
[2016-08-17] MEDS: GUAIFENESIN/D-METHORPHAN HB 5 ML UDC PO PRN (21:52)
[2016-08-17] MEDS: NAPROXEN 500 MG TABLET PO PRN (21:52)
[2016-08-18] MEDS: IPRATROPIUM NEB FS 0.5 MG/2.5 ML AMPUL.NEB IH SCH ×4 (01:24→20:19)
[2016-08-18] MEDS: ALBUTEROL FS 2.5 MG/3 ML VIAL.NEB NEB SCH ×4 (01:24→20:19)
[2016-08-18] MEDS: PANTOPRAZOLE 40 MG TABLET.DR PO SCH (05:49)
[2016-08-18] MEDS: ATARAX 25 MG PO PRN (06:00)
[2016-08-18] MEDS: BLOOD SUGAR DIAGNOSTIC 1 EACH STRIP VI SCH ×4 (06:53→21:17)
[2016-08-18] MEDS: INSULIN LISPRO/ASPART 100 UNIT/ML CARTRIDGE SQ PRN ×4 (06:54→21:18)
[2016-08-18 07:45] VITALS: BP 131/79
[2016-08-18] MEDS: BUDESONIDE RESPULE INH 0.5 MG/2 ML AMPUL.NEB IH SCH ×2 (08:20→20:44)
[2016-08-18] MEDS: VIT B CMPLX 3/FA/VIT C/BIOTIN 1 TAB TABLET PO SCH (09:53)
[2016-08-18] MEDS: RENAL NOVASOURCE (8OZ) 1 EA BOX PO SCH (09:53)
[2016-08-18] MEDS: SITAGLIPTIN PHOSPHATE 25 MG TABLET PO SCH (09:53)
[2016-08-18] MEDS: POLYVINYL ALCOHOL 15 ML BOTTLE EACHEYE SCH ×4 (09:53→20:38)
[2016-08-18] MEDS: DOCUSATE SODIUM 100 MG CAPSULE PO SCH (09:53)
[2016-08-18] MEDS: PROSOURCE / PROSTAT (PYXIS) 30 ML UDC PO SCH ×3 (09:54→16:56)
[2016-08-18] MEDS: ASCORBIC ACID 500 MG TABLET PO SCH (09:54)
[2016-08-18] MEDS: SERTRALINE HCL 25 MG TABLET PO SCH (09:54)
[2016-08-18] MEDS: HYDROGEN PEROXIDE 480 ML BOTTLE TP SCH ×2 (09:56→20:39)
[2016-08-18] MEDS: HEPARIN SODIUM, PORCINE 5000 UNITS/1 ML VIAL SQ SCH ×2 (09:56→20:39)
[2016-08-18] MEDS: MINERAL OIL/PETROL OINT 396 GM JAR TP SCH ×2 (09:56→20:39)
[2016-08-18] MEDS: ZINC OXIDE 56.7 GM TUBE TP SCH ×2 (09:57→20:39)
[2016-08-18] MEDS: GUAIFENESIN/D-METHORPHAN HB 5 ML UDC PO PRN (10:51)
--- NOTE | 2016-08-18 10:52 | NUR ---
RN NOTES PATIENT NOTED COUGHING, ASKED FOR PRN ROBITUSSIN AND GIVEN. WILL CONTINUE TO MONITOR
--- NOTE | 2016-08-18 15:33 | NUR ---
Seen and examined by Dr. Narvaez with no new order.
[2016-08-18 19:49] VITALS: BP 139/73
[2016-08-18] MEDS: MONTELUKAST SODIUM (10MG) 10 MG TABLET PO SCH (21:16)
[2016-08-18] MEDS: GABAPENTIN 100 MG CAPSULE PO SCH (21:16)
[2016-08-18] MEDS: TEMAZEPAM 15 MG CAPSULE PO SCH (21:16)
[2016-08-18] MEDS: INSULIN DETEMIR 100 UNIT/ML CARTRIDGE SQ SCH (21:17)
[2016-08-19] MEDS: ALBUTEROL FS 2.5 MG/3 ML VIAL.NEB NEB SCH ×4 (01:26→20:25)
[2016-08-19] MEDS: IPRATROPIUM NEB FS 0.5 MG/2.5 ML AMPUL.NEB IH SCH ×4 (01:26→20:25)
[2016-08-19] MEDS: PANTOPRAZOLE 40 MG TABLET.DR PO SCH (05:47)
[2016-08-19] MEDS: BLOOD SUGAR DIAGNOSTIC 1 EACH STRIP VI SCH ×4 (07:40→21:46)
[2016-08-19] MEDS: RENAL NOVASOURCE (8OZ) 1 EA BOX PO SCH (08:14)
[2016-08-19] MEDS: VIT B CMPLX 3/FA/VIT C/BIOTIN 1 TAB TABLET PO SCH (08:14)
[2016-08-19] MEDS: DOCUSATE SODIUM 100 MG CAPSULE PO SCH (08:14)
[2016-08-19] MEDS: SERTRALINE HCL 25 MG TABLET PO SCH (08:15)
[2016-08-19] MEDS: HYDROGEN PEROXIDE 480 ML BOTTLE TP SCH ×2 (08:16→20:22)
[2016-08-19] MEDS: ZINC OXIDE 56.7 GM TUBE TP SCH ×2 (08:16→20:22)
[2016-08-19] MEDS: MINERAL OIL/PETROL OINT 396 GM JAR TP SCH ×2 (08:16→20:22)
[2016-08-19] MEDS: PROSOURCE / PROSTAT (PYXIS) 30 ML UDC PO SCH ×4 (08:17→16:29)
[2016-08-19] MEDS: ASCORBIC ACID 500 MG TABLET PO SCH (08:17)
[2016-08-19] MEDS: SITAGLIPTIN PHOSPHATE 25 MG TABLET PO SCH (08:17)
[2016-08-19] MEDS: POLYVINYL ALCOHOL 15 ML BOTTLE EACHEYE SCH ×5 (08:17→20:22)
[2016-08-19] MEDS: HEPARIN SODIUM, PORCINE 5000 UNITS/1 ML VIAL SQ SCH ×2 (08:22→20:16)
[2016-08-19] MEDS: GUAIFENESIN/D-METHORPHAN HB 5 ML UDC PO PRN ×2 (08:31→20:17)
[2016-08-19 08:32] VITALS: BP 131/86
--- NOTE | 2016-08-19 09:00 | NUR ---
Pt's blood sugar was 41. Pt refused D50. He was alert and responsive, eating his breakfast. Pramod MATTHEWS gave him orange juice and Novasource renal. Blood sugar went up to 125.
[2016-08-19] MEDS: BUDESONIDE RESPULE INH 0.5 MG/2 ML AMPUL.NEB IH SCH ×2 (09:46→20:25)
--- NOTE | 2016-08-19 10:30 | NUR ---
Called Dr. Prieto's office to notify her that pt's blood sugar was 41 earlier. Left message with Re.
--- NOTE | 2016-08-19 10:55 | NUR ---
Spoke to resident's brother Aly to follow up. FERNANDO informed him that resident's check is in social service office in resident's file in the cabinet. Aly noted that he was going to try to go to the social security office today to apply to be resident's payee. FERNANDO will follow up at a later time.
--- NOTE | 2016-08-19 14:40 | NUR ---
Called Dr. Prieto's office again and spoke with Liz. Left message with her. Dr. Navarrete called back and notified him that pt's blood sugar was 41 earlier this morning, pt had 3 episodes of hypoglycemia this month. Received order to hold Levemir. Addendum: 08/19/16 at 1725 by DIGNA VALDEZ RN Notified pt about order to hold Levemir until further order.
[2016-08-19] MEDS: INSULIN LISPRO/ASPART 100 UNIT/ML CARTRIDGE SQ PRN (17:12)
[2016-08-19 19:52] VITALS: BP 134/86
[2016-08-19] MEDS: ATARAX 25 MG PO PRN (20:17)
[2016-08-19] MEDS: GABAPENTIN 100 MG CAPSULE PO SCH (21:45)
[2016-08-19] MEDS: MONTELUKAST SODIUM (10MG) 10 MG TABLET PO SCH (21:46)
[2016-08-19] MEDS: TEMAZEPAM 15 MG CAPSULE PO SCH (21:46)
[2016-08-20] MEDS: IPRATROPIUM NEB FS 0.5 MG/2.5 ML AMPUL.NEB IH SCH ×4 (01:30→20:25)
[2016-08-20] MEDS: ALBUTEROL FS 2.5 MG/3 ML VIAL.NEB NEB SCH ×4 (01:30→20:25)
[2016-08-20] MEDS: PANTOPRAZOLE 40 MG TABLET.DR PO SCH (05:58)
[2016-08-20] MEDS: INSULIN LISPRO/ASPART 100 UNIT/ML CARTRIDGE SQ PRN ×2 (07:50→17:13)
[2016-08-20] MEDS: BLOOD SUGAR DIAGNOSTIC 1 EACH STRIP VI SCH ×4 (07:50→21:28)
[2016-08-20 08:05] VITALS: BP 108/62
[2016-08-20 08:06] VITALS: BP 108/62
[2016-08-20] MEDS: DOCUSATE SODIUM 100 MG CAPSULE PO SCH (08:52)
[2016-08-20] MEDS: VIT B CMPLX 3/FA/VIT C/BIOTIN 1 TAB TABLET PO SCH (08:52)
[2016-08-20] MEDS: POLYVINYL ALCOHOL 15 ML BOTTLE EACHEYE SCH ×4 (08:52→20:45)
[2016-08-20] MEDS: ERGOCALCIFEROL (VITAMIN D 2) 50,000 UNIT CAPSULE PO SCH (08:52)
[2016-08-20] MEDS: SITAGLIPTIN PHOSPHATE 25 MG TABLET PO SCH (08:52)
[2016-08-20] MEDS: RENAL NOVASOURCE (8OZ) 1 EA BOX PO SCH (08:52)
[2016-08-20] MEDS: ASCORBIC ACID 500 MG TABLET PO SCH (08:53)
[2016-08-20] MEDS: SERTRALINE HCL 25 MG TABLET PO SCH (08:53)
[2016-08-20] MEDS: PROSOURCE / PROSTAT (PYXIS) 30 ML UDC PO SCH ×3 (08:53→17:11)
[2016-08-20] MEDS: HEPARIN SODIUM, PORCINE 5000 UNITS/1 ML VIAL SQ SCH ×2 (08:54→20:39)
[2016-08-20] MEDS: HYDROGEN PEROXIDE 480 ML BOTTLE TP SCH ×2 (08:54→20:40)
[2016-08-20] MEDS: MINERAL OIL/PETROL OINT 396 GM JAR TP SCH ×2 (08:54→20:39)
[2016-08-20] MEDS: ZINC OXIDE 56.7 GM TUBE TP SCH ×2 (08:54→20:40)
[2016-08-20] MEDS: GUAIFENESIN/D-METHORPHAN HB 5 ML UDC PO PRN (09:31)
[2016-08-20] MEDS: BUDESONIDE RESPULE INH 0.5 MG/2 ML AMPUL.NEB IH SCH ×2 (09:31→20:43)
[2016-08-20 20:40] VITALS: BP 127/81
[2016-08-20] MEDS: TEMAZEPAM 15 MG CAPSULE PO SCH (21:28)
[2016-08-20] MEDS: MONTELUKAST SODIUM (10MG) 10 MG TABLET PO SCH (21:28)
[2016-08-20] MEDS: GABAPENTIN 100 MG CAPSULE PO SCH (21:28)
[2016-08-21] MEDS: IPRATROPIUM NEB FS 0.5 MG/2.5 ML AMPUL.NEB IH SCH ×4 (02:38→19:30)
[2016-08-21] MEDS: ALBUTEROL FS 2.5 MG/3 ML VIAL.NEB NEB SCH ×4 (02:38→19:30)
[2016-08-21] MEDS: PANTOPRAZOLE 40 MG TABLET.DR PO SCH (05:45)
[2016-08-21] MEDS: BLOOD SUGAR DIAGNOSTIC 1 EACH STRIP VI SCH ×4 (07:46→21:30)
[2016-08-21 08:00] VITALS: BP 145/89
[2016-08-21 08:31] VITALS: BP 145/89
[2016-08-21] MEDS: GUAIFENESIN/D-METHORPHAN HB 5 ML UDC PO PRN ×2 (09:00→20:13)
[2016-08-21] MEDS: NAPROXEN 500 MG TABLET PO PRN ×2 (09:00→21:32)
[2016-08-21] MEDS: HYDROGEN PEROXIDE 480 ML BOTTLE TP SCH ×2 (09:04→20:56)
[2016-08-21] MEDS: SITAGLIPTIN PHOSPHATE 25 MG TABLET PO SCH (09:04)
[2016-08-21] MEDS: DOCUSATE SODIUM 100 MG CAPSULE PO SCH (09:04)
[2016-08-21] MEDS: ASCORBIC ACID 500 MG TABLET PO SCH (09:04)
[2016-08-21] MEDS: RENAL NOVASOURCE (8OZ) 1 EA BOX PO SCH (09:04)
[2016-08-21] MEDS: MINERAL OIL/PETROL OINT 396 GM JAR TP SCH ×2 (09:04→20:56)
[2016-08-21] MEDS: VIT B CMPLX 3/FA/VIT C/BIOTIN 1 TAB TABLET PO SCH (09:04)
[2016-08-21] MEDS: SERTRALINE HCL 25 MG TABLET PO SCH (09:04)
[2016-08-21] MEDS: HEPARIN SODIUM, PORCINE 5000 UNITS/1 ML VIAL SQ SCH ×2 (09:04→20:56)
[2016-08-21] MEDS: PROSOURCE / PROSTAT (PYXIS) 30 ML UDC PO SCH ×3 (09:04→16:59)
[2016-08-21] MEDS: POLYVINYL ALCOHOL 15 ML BOTTLE EACHEYE SCH ×4 (09:04→20:55)
[2016-08-21] MEDS: ZINC OXIDE 56.7 GM TUBE TP SCH ×2 (09:05→20:56)
[2016-08-21] MEDS: BUDESONIDE RESPULE INH 0.5 MG/2 ML AMPUL.NEB IH SCH ×2 (09:07→20:55)
--- NOTE | 2016-08-21 10:00 | NUR ---
Spoke with Dennis (nurse) from [facility] informing him that our doctor ordered Vit D level, but patient does not want blood draw done in the facility but rather specimen to be collected during dialysis. According to Dennis, they can draw the blood at the dialysis center. Spoke with Gt from the lab and made aware of patient's request. The vial will be sent with patient and will berry picker machine operator by staff when specimen is ready. Endorsed.
--- NOTE | 2016-08-21 11:24 | NUR ---
Received a call from Aly, the resident's brother, and he stated that he went to the medicare office and he received an application to be resident's payee. He stated that they will also send resident a letter for approval at the hospital and that he must sign it and that it has to be returned to the address indicated. SW noted she will await for the letter and will follow up. Resident notified.
[2016-08-21] MEDS: INSULIN LISPRO/ASPART 100 UNIT/ML CARTRIDGE SQ PRN ×3 (14:10→21:31)
[2016-08-21 19:54] VITALS: BP 147/97
[2016-08-21] MEDS: TEMAZEPAM 15 MG CAPSULE PO SCH (21:30)
[2016-08-21] MEDS: GABAPENTIN 100 MG CAPSULE PO SCH (21:30)
[2016-08-21] MEDS: MONTELUKAST SODIUM (10MG) 10 MG TABLET PO SCH (21:30)
[2016-08-22] MEDS: ALBUTEROL FS 2.5 MG/3 ML VIAL.NEB NEB SCH ×4 (01:30→19:43)
[2016-08-22] MEDS: IPRATROPIUM NEB FS 0.5 MG/2.5 ML AMPUL.NEB IH SCH ×4 (01:30→19:43)
[2016-08-22] MEDS: PANTOPRAZOLE 40 MG TABLET.DR PO SCH (05:13)
[2016-08-22] MEDS: INSULIN LISPRO/ASPART 100 UNIT/ML CARTRIDGE SQ PRN ×2 (06:34→21:17)
[2016-08-22] MEDS: BLOOD SUGAR DIAGNOSTIC 1 EACH STRIP VI SCH ×4 (06:34→21:16)
[2016-08-22 07:44] VITALS: BP 137/79
[2016-08-22] MEDS: RENAL NOVASOURCE (8OZ) 1 EA BOX PO SCH (08:28)
[2016-08-22] MEDS: VIT B CMPLX 3/FA/VIT C/BIOTIN 1 TAB TABLET PO SCH (08:28)
[2016-08-22] MEDS: DOCUSATE SODIUM 100 MG CAPSULE PO SCH (08:28)
[2016-08-22] MEDS: ASCORBIC ACID 500 MG TABLET PO SCH (08:28)
[2016-08-22] MEDS: POLYVINYL ALCOHOL 15 ML BOTTLE EACHEYE SCH ×4 (08:28→20:02)
[2016-08-22] MEDS: SITAGLIPTIN PHOSPHATE 25 MG TABLET PO SCH (08:28)
[2016-08-22] MEDS: PROSOURCE / PROSTAT (PYXIS) 30 ML UDC PO SCH ×3 (08:28→16:58)
[2016-08-22] MEDS: GUAIFENESIN/D-METHORPHAN HB 5 ML UDC PO PRN ×2 (08:29→20:03)
[2016-08-22] MEDS: NAPROXEN 500 MG TABLET PO PRN (08:29)
[2016-08-22] MEDS: HEPARIN SODIUM, PORCINE 5000 UNITS/1 ML VIAL SQ SCH ×2 (08:29→20:03)
[2016-08-22] MEDS: ATARAX 25 MG PO PRN ×2 (08:29→20:03)
[2016-08-22] MEDS: BUDESONIDE RESPULE INH 0.5 MG/2 ML AMPUL.NEB IH SCH ×2 (08:58→19:43)
[2016-08-22] MEDS: SERTRALINE HCL 25 MG TABLET PO SCH (09:00)
[2016-08-22] MEDS: ZINC OXIDE 56.7 GM TUBE TP SCH ×2 (16:00→20:03)
[2016-08-22] MEDS: HYDROGEN PEROXIDE 480 ML BOTTLE TP SCH ×2 (16:00→20:03)
[2016-08-22] MEDS: MINERAL OIL/PETROL OINT 396 GM JAR TP SCH ×2 (16:00→20:03)
[2016-08-22 19:58] VITALS: BP 135/90
[2016-08-22] MEDS: TEMAZEPAM 15 MG CAPSULE PO SCH (21:16)
[2016-08-22] MEDS: MONTELUKAST SODIUM (10MG) 10 MG TABLET PO SCH (21:16)
[2016-08-22] MEDS: GABAPENTIN 100 MG CAPSULE PO SCH (21:16)
[2016-08-23] MEDS: ALBUTEROL FS 2.5 MG/3 ML VIAL.NEB NEB SCH ×4 (00:43→19:52)
[2016-08-23] MEDS: IPRATROPIUM NEB FS 0.5 MG/2.5 ML AMPUL.NEB IH SCH ×4 (00:43→19:52)
[2016-08-23] MEDS: PANTOPRAZOLE 40 MG TABLET.DR PO SCH (05:21)
[2016-08-23] MEDS: BLOOD SUGAR DIAGNOSTIC 1 EACH STRIP VI SCH ×4 (06:43→21:46)
[2016-08-23] MEDS: INSULIN LISPRO/ASPART 100 UNIT/ML CARTRIDGE SQ PRN ×3 (06:44→21:47)
[2016-08-23 07:47] VITALS: BP 140/94
[2016-08-23] MEDS: DOCUSATE SODIUM 100 MG CAPSULE PO SCH (08:37)
[2016-08-23] MEDS: POLYVINYL ALCOHOL 15 ML BOTTLE EACHEYE SCH ×4 (08:37→21:45)
[2016-08-23] MEDS: VIT B CMPLX 3/FA/VIT C/BIOTIN 1 TAB TABLET PO SCH (08:38)
[2016-08-23] MEDS: RENAL NOVASOURCE (8OZ) 1 EA BOX PO SCH (08:38)
[2016-08-23] MEDS: SITAGLIPTIN PHOSPHATE 25 MG TABLET PO SCH (08:38)
[2016-08-23] MEDS: SERTRALINE HCL 25 MG TABLET PO SCH (08:38)
[2016-08-23] MEDS: ASCORBIC ACID 500 MG TABLET PO SCH (08:38)
[2016-08-23] MEDS: PROSOURCE / PROSTAT (PYXIS) 30 ML UDC PO SCH ×3 (08:38→16:59)
[2016-08-23] MEDS: MINERAL OIL/PETROL OINT 396 GM JAR TP SCH ×2 (08:39→21:45)
[2016-08-23] MEDS: HEPARIN SODIUM, PORCINE 5000 UNITS/1 ML VIAL SQ SCH ×2 (08:39→21:45)
[2016-08-23] MEDS: HYDROGEN PEROXIDE 480 ML BOTTLE TP SCH ×2 (08:39→21:46)
[2016-08-23] MEDS: ZINC OXIDE 56.7 GM TUBE TP SCH ×2 (08:39→21:46)
[2016-08-23] MEDS: GUAIFENESIN/D-METHORPHAN HB 5 ML UDC PO PRN ×2 (09:18→21:46)
[2016-08-23] MEDS: BUDESONIDE RESPULE INH 0.5 MG/2 ML AMPUL.NEB IH SCH ×2 (09:27→19:53)
[2016-08-23] MEDS ORDERED: IV NS 0.9% 0 ML IV ONE (13:02)
[2016-08-23] MEDS ORDERED: METOCLOPRAMIDE HCL 10 MG/2 ML VIAL ONE (13:02)
[2016-08-23] MEDS ORDERED: IV NS 0.9% 0 ML ONE (13:02)
[2016-08-23 20:18] VITALS: BP 141/87
[2016-08-23] MEDS: MONTELUKAST SODIUM (10MG) 10 MG TABLET PO SCH (21:46)
[2016-08-23] MEDS: ATARAX 25 MG PO PRN (21:46)
[2016-08-23] MEDS: TEMAZEPAM 15 MG CAPSULE PO SCH (21:46)
[2016-08-23] MEDS: NAPROXEN 500 MG TABLET PO PRN (21:46)
[2016-08-23] MEDS: GABAPENTIN 100 MG CAPSULE PO SCH (21:46)
[2016-08-24] MEDS: ALBUTEROL FS 2.5 MG/3 ML VIAL.NEB NEB SCH ×5 (00:37→20:11)
[2016-08-24] MEDS: IPRATROPIUM NEB FS 0.5 MG/2.5 ML AMPUL.NEB IH SCH ×5 (00:37→20:11)
[2016-08-24] MEDS: PANTOPRAZOLE 40 MG TABLET.DR PO SCH (05:36)
[2016-08-24] MEDS: INSULIN LISPRO/ASPART 100 UNIT/ML CARTRIDGE SQ PRN (06:46)
[2016-08-24] MEDS: BLOOD SUGAR DIAGNOSTIC 1 EACH STRIP VI SCH ×4 (06:46→21:30)
[2016-08-24 07:38] VITALS: BP 133/86
[2016-08-24] MEDS: POLYVINYL ALCOHOL 15 ML BOTTLE EACHEYE SCH ×4 (09:00→21:29)
[2016-08-24] MEDS: RENAL NOVASOURCE (8OZ) 1 EA BOX PO SCH (09:03)
[2016-08-24] MEDS: SITAGLIPTIN PHOSPHATE 25 MG TABLET PO SCH (09:03)
[2016-08-24] MEDS: VIT B CMPLX 3/FA/VIT C/BIOTIN 1 TAB TABLET PO SCH (09:03)
[2016-08-24] MEDS: PROSOURCE / PROSTAT (PYXIS) 30 ML UDC PO SCH ×3 (09:03→17:00)
[2016-08-24] MEDS: ASCORBIC ACID 500 MG TABLET PO SCH (09:03)
[2016-08-24] MEDS: SERTRALINE HCL 25 MG TABLET PO SCH (09:03)
[2016-08-24] MEDS: DOCUSATE SODIUM 100 MG CAPSULE PO SCH (09:03)
[2016-08-24] MEDS: HEPARIN SODIUM, PORCINE 5000 UNITS/1 ML VIAL SQ SCH ×2 (09:05→21:29)
[2016-08-24] MEDS: MINERAL OIL/PETROL OINT 396 GM JAR TP SCH ×2 (09:05→21:29)
[2016-08-24] MEDS: ZINC OXIDE 56.7 GM TUBE TP SCH ×2 (09:05→21:30)
[2016-08-24] MEDS: HYDROGEN PEROXIDE 480 ML BOTTLE TP SCH ×2 (09:05→21:29)
[2016-08-24] MEDS: BUDESONIDE RESPULE INH 0.5 MG/2 ML AMPUL.NEB IH SCH ×2 (09:21→20:44)
[2016-08-24 19:37] VITALS: BP 141/89
[2016-08-24] MEDS: MONTELUKAST SODIUM (10MG) 10 MG TABLET PO SCH (21:30)
[2016-08-24] MEDS: GABAPENTIN 100 MG CAPSULE PO SCH (21:30)
[2016-08-24] MEDS: TEMAZEPAM 15 MG CAPSULE PO SCH (21:30)
[2016-08-24] MEDS: ATARAX 25 MG PO PRN (21:33)
[2016-08-24] MEDS: NAPROXEN 500 MG TABLET PO PRN (21:33)
[2016-08-24] MEDS: GUAIFENESIN/D-METHORPHAN HB 5 ML UDC PO PRN (21:33)
[2016-08-25] MEDS: ALBUTEROL FS 2.5 MG/3 ML VIAL.NEB NEB SCH ×4 (00:53→20:06)
[2016-08-25] MEDS: IPRATROPIUM NEB FS 0.5 MG/2.5 ML AMPUL.NEB IH SCH ×4 (00:53→20:06)
[2016-08-25] MEDS: PANTOPRAZOLE 40 MG TABLET.DR PO SCH (05:26)
[2016-08-25] MEDS: INSULIN LISPRO/ASPART 100 UNIT/ML CARTRIDGE SQ PRN ×3 (06:41→21:55)
[2016-08-25] MEDS: BLOOD SUGAR DIAGNOSTIC 1 EACH STRIP VI SCH ×4 (06:41→21:52)
[2016-08-25 08:00] VITALS: BP 134/85
[2016-08-25] MEDS: RENAL NOVASOURCE (8OZ) 1 EA BOX PO SCH (08:14)
[2016-08-25] MEDS: DOCUSATE SODIUM 100 MG CAPSULE PO SCH (08:14)
[2016-08-25] MEDS: VIT B CMPLX 3/FA/VIT C/BIOTIN 1 TAB TABLET PO SCH (08:14)
[2016-08-25] MEDS: ASCORBIC ACID 500 MG TABLET PO SCH (08:14)
[2016-08-25] MEDS: PROSOURCE / PROSTAT (PYXIS) 30 ML UDC PO SCH ×3 (08:14→17:24)
[2016-08-25] MEDS: SITAGLIPTIN PHOSPHATE 25 MG TABLET PO SCH (08:14)
[2016-08-25] MEDS: POLYVINYL ALCOHOL 15 ML BOTTLE EACHEYE SCH ×4 (08:14→21:51)
[2016-08-25] MEDS: HEPARIN SODIUM, PORCINE 5000 UNITS/1 ML VIAL SQ SCH ×2 (08:15→21:51)
[2016-08-25] MEDS: MINERAL OIL/PETROL OINT 396 GM JAR TP SCH ×2 (08:15→21:51)
[2016-08-25] MEDS: HYDROGEN PEROXIDE 480 ML BOTTLE TP SCH ×2 (08:15→21:51)
[2016-08-25] MEDS: SERTRALINE HCL 25 MG TABLET PO SCH (08:15)
[2016-08-25] MEDS: ZINC OXIDE 56.7 GM TUBE TP SCH ×2 (08:15→21:51)
[2016-08-25] MEDS: BUDESONIDE RESPULE INH 0.5 MG/2 ML AMPUL.NEB IH SCH ×2 (09:00→20:56)
[2016-08-25 19:39] VITALS: BP 140/90
[2016-08-25] MEDS: GABAPENTIN 100 MG CAPSULE PO SCH (21:51)
[2016-08-25] MEDS: TEMAZEPAM 15 MG CAPSULE PO SCH (21:52)
[2016-08-25] MEDS: MONTELUKAST SODIUM (10MG) 10 MG TABLET PO SCH (21:52)
[2016-08-25] MEDS: GUAIFENESIN/D-METHORPHAN HB 5 ML UDC PO PRN (21:57)
[2016-08-26] MEDS: IPRATROPIUM NEB FS 0.5 MG/2.5 ML AMPUL.NEB IH SCH ×4 (01:00→20:09)
[2016-08-26] MEDS: ALBUTEROL FS 2.5 MG/3 ML VIAL.NEB NEB SCH ×4 (01:00→20:09)
[2016-08-26] MEDS: PANTOPRAZOLE 40 MG TABLET.DR PO SCH (05:48)
[2016-08-26] MEDS: BLOOD SUGAR DIAGNOSTIC 1 EACH STRIP VI SCH ×4 (08:13→21:16)
[2016-08-26 08:16] VITALS: BP 138/94
[2016-08-26] MEDS: POLYVINYL ALCOHOL 15 ML BOTTLE EACHEYE SCH ×4 (08:31→21:15)
[2016-08-26] MEDS: SITAGLIPTIN PHOSPHATE 25 MG TABLET PO SCH (08:31)
[2016-08-26] MEDS: DOCUSATE SODIUM 100 MG CAPSULE PO SCH (08:31)
[2016-08-26] MEDS: ASCORBIC ACID 500 MG TABLET PO SCH (08:32)
[2016-08-26] MEDS: HEPARIN SODIUM, PORCINE 5000 UNITS/1 ML VIAL SQ SCH ×2 (08:32→21:15)
[2016-08-26] MEDS: RENAL NOVASOURCE (8OZ) 1 EA BOX PO SCH (08:32)
[2016-08-26] MEDS: VIT B CMPLX 3/FA/VIT C/BIOTIN 1 TAB TABLET PO SCH (08:32)
[2016-08-26] MEDS: SERTRALINE HCL 25 MG TABLET PO SCH (08:32)
[2016-08-26] MEDS: PROSOURCE / PROSTAT (PYXIS) 30 ML UDC PO SCH ×3 (08:32→16:59)
[2016-08-26] MEDS: ATARAX 25 MG PO PRN (08:42)
[2016-08-26] MEDS: GUAIFENESIN/D-METHORPHAN HB 5 ML UDC PO PRN ×2 (08:42→21:17)
[2016-08-26] MEDS: NAPROXEN 500 MG TABLET PO PRN (08:42)
[2016-08-26] MEDS: BUDESONIDE RESPULE INH 0.5 MG/2 ML AMPUL.NEB IH SCH ×2 (09:29→20:30)
[2016-08-26] MEDS: INSULIN LISPRO/ASPART 100 UNIT/ML CARTRIDGE SQ PRN (13:30)
[2016-08-26] MEDS: MINERAL OIL/PETROL OINT 396 GM JAR TP SCH ×2 (14:00→21:15)
[2016-08-26] MEDS: ZINC OXIDE 56.7 GM TUBE TP SCH ×2 (14:00→21:15)
[2016-08-26] MEDS: HYDROGEN PEROXIDE 480 ML BOTTLE TP SCH ×2 (14:00→21:15)
--- NOTE | 2016-08-26 17:10 | NUR ---
BYRON Forte reported that pt's blood sugar is 46. Pt alert and verbally responsive. No change in mental status, no signs and symptoms of hypoglycemia. Notified pt that he needs to be given D50. Pt refused D50. Explained risks and benefits, but pt still refused. Pt drank orange juice and started eating his dinner.
--- NOTE | 2016-08-26 18:10 | NUR ---
Pt's blood sugar is now 113.
[2016-08-26 19:42] VITALS: BP 142/98
[2016-08-26] MEDS: TEMAZEPAM 15 MG CAPSULE PO SCH (21:15)
[2016-08-26] MEDS: GABAPENTIN 100 MG CAPSULE PO SCH (21:15)
[2016-08-26] MEDS: MONTELUKAST SODIUM (10MG) 10 MG TABLET PO SCH (21:16)
[2016-08-27] MEDS: ALBUTEROL FS 2.5 MG/3 ML VIAL.NEB NEB SCH ×4 (01:30→19:59)
[2016-08-27] MEDS: IPRATROPIUM NEB FS 0.5 MG/2.5 ML AMPUL.NEB IH SCH ×4 (01:30→19:59)
[2016-08-27] MEDS: PANTOPRAZOLE 40 MG TABLET.DR PO SCH (05:40)
[2016-08-27] MEDS: BLOOD SUGAR DIAGNOSTIC 1 EACH STRIP VI SCH ×4 (07:39→21:10)
[2016-08-27 07:55] VITALS: BP 152/92
[2016-08-27] MEDS: ASCORBIC ACID 500 MG TABLET PO SCH (08:08)
[2016-08-27] MEDS: VIT B CMPLX 3/FA/VIT C/BIOTIN 1 TAB TABLET PO SCH (08:08)
[2016-08-27] MEDS: PROSOURCE / PROSTAT (PYXIS) 30 ML UDC PO SCH ×3 (08:08→16:23)
[2016-08-27] MEDS: POLYVINYL ALCOHOL 15 ML BOTTLE EACHEYE SCH ×4 (08:08→21:09)
[2016-08-27] MEDS: SITAGLIPTIN PHOSPHATE 25 MG TABLET PO SCH (08:08)
[2016-08-27] MEDS: SERTRALINE HCL 25 MG TABLET PO SCH (08:08)
[2016-08-27] MEDS: DOCUSATE SODIUM 100 MG CAPSULE PO SCH (08:08)
[2016-08-27] MEDS: RENAL NOVASOURCE (8OZ) 1 EA BOX PO SCH (08:08)
[2016-08-27] MEDS: ERGOCALCIFEROL (VITAMIN D 2) 50,000 UNIT CAPSULE PO SCH (08:08)
[2016-08-27] MEDS: HEPARIN SODIUM, PORCINE 5000 UNITS/1 ML VIAL SQ SCH ×2 (08:10→21:09)
[2016-08-27] MEDS: MINERAL OIL/PETROL OINT 396 GM JAR TP SCH ×2 (08:10→21:09)
[2016-08-27] MEDS: ZINC OXIDE 56.7 GM TUBE TP SCH ×2 (08:10→21:10)
[2016-08-27] MEDS: HYDROGEN PEROXIDE 480 ML BOTTLE TP SCH ×2 (08:10→21:09)
[2016-08-27] MEDS: GUAIFENESIN/D-METHORPHAN HB 5 ML UDC PO PRN ×2 (08:18→21:10)
[2016-08-27] MEDS: BUDESONIDE RESPULE INH 0.5 MG/2 ML AMPUL.NEB IH SCH ×2 (08:45→20:03)
[2016-08-27 19:48] VITALS: BP 126/84
[2016-08-27] MEDS: TEMAZEPAM 15 MG CAPSULE PO SCH (21:10)
[2016-08-27] MEDS: MONTELUKAST SODIUM (10MG) 10 MG TABLET PO SCH (21:10)
[2016-08-27] MEDS: GABAPENTIN 100 MG CAPSULE PO SCH (21:10)
[2016-08-28] MEDS: IPRATROPIUM NEB FS 0.5 MG/2.5 ML AMPUL.NEB IH SCH ×4 (00:56→19:36)
[2016-08-28] MEDS: ALBUTEROL FS 2.5 MG/3 ML VIAL.NEB NEB SCH ×4 (00:56→19:36)
[2016-08-28] MEDS: PANTOPRAZOLE 40 MG TABLET.DR PO SCH (06:20)
[2016-08-28] MEDS: BLOOD SUGAR DIAGNOSTIC 1 EACH STRIP VI SCH ×4 (07:30→21:28)
[2016-08-28 07:58] VITALS: BP 149/97
[2016-08-28] MEDS: BUDESONIDE RESPULE INH 0.5 MG/2 ML AMPUL.NEB IH SCH ×2 (08:58→19:36)
[2016-08-28] MEDS: RENAL NOVASOURCE (8OZ) 1 EA BOX PO SCH (09:00)
[2016-08-28] MEDS: SITAGLIPTIN PHOSPHATE 25 MG TABLET PO SCH (09:24)
[2016-08-28] MEDS: DOCUSATE SODIUM 100 MG CAPSULE PO SCH (09:24)
[2016-08-28] MEDS: POLYVINYL ALCOHOL 15 ML BOTTLE EACHEYE SCH ×4 (09:24→21:27)
[2016-08-28] MEDS: VIT B CMPLX 3/FA/VIT C/BIOTIN 1 TAB TABLET PO SCH (09:24)
[2016-08-28] MEDS: MINERAL OIL/PETROL OINT 396 GM JAR TP SCH ×2 (09:25→21:27)
[2016-08-28] MEDS: PROSOURCE / PROSTAT (PYXIS) 30 ML UDC PO SCH ×3 (09:25→16:41)
[2016-08-28] MEDS: ASCORBIC ACID 500 MG TABLET PO SCH (09:25)
[2016-08-28] MEDS: HEPARIN SODIUM, PORCINE 5000 UNITS/1 ML VIAL SQ SCH ×2 (09:25→21:27)
[2016-08-28] MEDS: HYDROGEN PEROXIDE 480 ML BOTTLE TP SCH ×2 (09:25→21:27)
[2016-08-28] MEDS: ZINC OXIDE 56.7 GM TUBE TP SCH ×2 (09:25→21:27)
[2016-08-28] MEDS: SERTRALINE HCL 25 MG TABLET PO SCH (09:25)
[2016-08-28] MEDS: GUAIFENESIN/D-METHORPHAN HB 5 ML UDC PO PRN (14:22)
[2016-08-28 19:49] VITALS: BP 138/88
[2016-08-28] MEDS: GABAPENTIN 100 MG CAPSULE PO SCH (21:27)
[2016-08-28] MEDS: MONTELUKAST SODIUM (10MG) 10 MG TABLET PO SCH (21:28)
[2016-08-28] MEDS: TEMAZEPAM 15 MG CAPSULE PO SCH (21:28)
[2016-08-29] MEDS: IPRATROPIUM NEB FS 0.5 MG/2.5 ML AMPUL.NEB IH SCH ×4 (00:52→19:44)
[2016-08-29] MEDS: ALBUTEROL FS 2.5 MG/3 ML VIAL.NEB NEB SCH ×4 (00:52→19:44)
[2016-08-29] MEDS: PANTOPRAZOLE 40 MG TABLET.DR PO SCH (05:57)
[2016-08-29] MEDS: BLOOD SUGAR DIAGNOSTIC 1 EACH STRIP VI SCH ×4 (07:37→21:10)
[2016-08-29 07:47] VITALS: BP 125/83
[2016-08-29] MEDS: BUDESONIDE RESPULE INH 0.5 MG/2 ML AMPUL.NEB IH SCH ×2 (08:26→21:00)
[2016-08-29] MEDS: ZINC OXIDE 56.7 GM TUBE TP SCH ×2 (09:00→20:27)
[2016-08-29] MEDS: HYDROGEN PEROXIDE 480 ML BOTTLE TP SCH ×2 (09:00→20:27)
[2016-08-29] MEDS: SERTRALINE HCL 25 MG TABLET PO SCH (09:00)
[2016-08-29] MEDS: MINERAL OIL/PETROL OINT 396 GM JAR TP SCH ×2 (09:00→20:27)
[2016-08-29] MEDS: RENAL NOVASOURCE (8OZ) 1 EA BOX PO SCH (09:00)
[2016-08-29] MEDS: SITAGLIPTIN PHOSPHATE 25 MG TABLET PO SCH (09:00)
[2016-08-29] MEDS: POLYVINYL ALCOHOL 15 ML BOTTLE EACHEYE SCH ×4 (09:00→20:26)
[2016-08-29] MEDS: VIT B CMPLX 3/FA/VIT C/BIOTIN 1 TAB TABLET PO SCH (09:00)
[2016-08-29] MEDS: PROSOURCE / PROSTAT (PYXIS) 30 ML UDC PO SCH ×3 (09:00→16:47)
[2016-08-29] MEDS: HEPARIN SODIUM, PORCINE 5000 UNITS/1 ML VIAL SQ SCH ×2 (09:00→20:27)
[2016-08-29] MEDS: ASCORBIC ACID 500 MG TABLET PO SCH (09:00)
[2016-08-29] MEDS: DOCUSATE SODIUM 100 MG CAPSULE PO SCH (09:00)
[2016-08-29] MEDS: ATARAX 25 MG PO PRN (19:47)
[2016-08-29] MEDS: GUAIFENESIN/D-METHORPHAN HB 5 ML UDC PO PRN (19:47)
[2016-08-29] MEDS: NAPROXEN 500 MG TABLET PO PRN (21:10)
[2016-08-29] MEDS: INSULIN LISPRO/ASPART 100 UNIT/ML CARTRIDGE SQ PRN (21:10)
[2016-08-29] MEDS: MONTELUKAST SODIUM (10MG) 10 MG TABLET PO SCH (21:10)
[2016-08-29] MEDS: GABAPENTIN 100 MG CAPSULE PO SCH (21:10)
[2016-08-29] MEDS: TEMAZEPAM 15 MG CAPSULE PO SCH (21:10)
[2016-08-29 21:16] VITALS: BP 150/100
[2016-08-30] MEDS: ALBUTEROL FS 2.5 MG/3 ML VIAL.NEB NEB SCH ×4 (01:57→20:12)
[2016-08-30] MEDS: IPRATROPIUM NEB FS 0.5 MG/2.5 ML AMPUL.NEB IH SCH ×4 (01:57→20:12)
[2016-08-30] MEDS: PANTOPRAZOLE 40 MG TABLET.DR PO SCH (05:34)
[2016-08-30] MEDS: INSULIN LISPRO/ASPART 100 UNIT/ML CARTRIDGE SQ PRN ×4 (06:48→21:22)
[2016-08-30] MEDS: BLOOD SUGAR DIAGNOSTIC 1 EACH STRIP VI SCH ×4 (06:48→21:22)
[2016-08-30 07:50] VITALS: BP 141/93
[2016-08-30] MEDS: BUDESONIDE RESPULE INH 0.5 MG/2 ML AMPUL.NEB IH SCH ×2 (08:07→20:12)
[2016-08-30] MEDS: VIT B CMPLX 3/FA/VIT C/BIOTIN 1 TAB TABLET PO SCH (08:15)
[2016-08-30] MEDS: SITAGLIPTIN PHOSPHATE 25 MG TABLET PO SCH (08:15)
[2016-08-30] MEDS: POLYVINYL ALCOHOL 15 ML BOTTLE EACHEYE SCH ×4 (08:15→21:04)
[2016-08-30] MEDS: DOCUSATE SODIUM 100 MG CAPSULE PO SCH (08:15)
[2016-08-30] MEDS: PROSOURCE / PROSTAT (PYXIS) 30 ML UDC PO SCH ×3 (08:16→17:00)
[2016-08-30] MEDS: RENAL NOVASOURCE (8OZ) 1 EA BOX PO SCH (08:16)
[2016-08-30] MEDS: HEPARIN SODIUM, PORCINE 5000 UNITS/1 ML VIAL SQ SCH ×2 (08:16→21:04)
[2016-08-30] MEDS: ASCORBIC ACID 500 MG TABLET PO SCH (08:16)
[2016-08-30] MEDS: HYDROGEN PEROXIDE 480 ML BOTTLE TP SCH ×2 (08:17→21:05)
[2016-08-30] MEDS: MINERAL OIL/PETROL OINT 396 GM JAR TP SCH ×2 (08:17→21:05)
[2016-08-30] MEDS: ZINC OXIDE 56.7 GM TUBE TP SCH ×2 (08:17→21:05)
[2016-08-30] MEDS: SERTRALINE HCL 25 MG TABLET PO SCH (08:23)
[2016-08-30 20:51] VITALS: BP 138/87
[2016-08-30] MEDS: MONTELUKAST SODIUM (10MG) 10 MG TABLET PO SCH (21:05)
[2016-08-30] MEDS: NAPROXEN 500 MG TABLET PO PRN (21:05)
[2016-08-30] MEDS: GUAIFENESIN/D-METHORPHAN HB 5 ML UDC PO PRN (21:05)
[2016-08-30] MEDS: TEMAZEPAM 15 MG CAPSULE PO SCH (21:05)
[2016-08-30] MEDS: GABAPENTIN 100 MG CAPSULE PO SCH (21:05)
[2016-08-31] MEDS: IPRATROPIUM NEB FS 0.5 MG/2.5 ML AMPUL.NEB IH SCH ×4 (00:56→19:33)
[2016-08-31] MEDS: ALBUTEROL FS 2.5 MG/3 ML VIAL.NEB NEB SCH ×4 (00:56→19:33)
[2016-08-31] MEDS: PANTOPRAZOLE 40 MG TABLET.DR PO SCH (05:27)
[2016-08-31] MEDS: INSULIN LISPRO/ASPART 100 UNIT/ML CARTRIDGE SQ PRN ×3 (06:49→21:19)
[2016-08-31] MEDS: BLOOD SUGAR DIAGNOSTIC 1 EACH STRIP VI SCH ×4 (06:49→21:18)
[2016-08-31 07:42] VITALS: BP 134/80
[2016-08-31] MEDS: BUDESONIDE RESPULE INH 0.5 MG/2 ML AMPUL.NEB IH SCH ×2 (08:02→19:33)
[2016-08-31] MEDS: VIT B CMPLX 3/FA/VIT C/BIOTIN 1 TAB TABLET PO SCH (08:28)
[2016-08-31] MEDS: SERTRALINE HCL 25 MG TABLET PO SCH (08:28)
[2016-08-31] MEDS: RENAL NOVASOURCE (8OZ) 1 EA BOX PO SCH (08:28)
[2016-08-31] MEDS: POLYVINYL ALCOHOL 15 ML BOTTLE EACHEYE SCH ×4 (08:28→20:51)
[2016-08-31] MEDS: PROSOURCE / PROSTAT (PYXIS) 30 ML UDC PO SCH ×3 (08:28→16:48)
[2016-08-31] MEDS: SITAGLIPTIN PHOSPHATE 25 MG TABLET PO SCH (08:28)
[2016-08-31] MEDS: DOCUSATE SODIUM 100 MG CAPSULE PO SCH (08:28)
[2016-08-31] MEDS: ASCORBIC ACID 500 MG TABLET PO SCH (08:28)
[2016-08-31] MEDS: MINERAL OIL/PETROL OINT 396 GM JAR TP SCH ×2 (08:31→20:51)
[2016-08-31] MEDS: HYDROGEN PEROXIDE 480 ML BOTTLE TP SCH ×2 (08:31→20:51)
[2016-08-31] MEDS: ZINC OXIDE 56.7 GM TUBE TP SCH ×2 (08:31→20:51)
[2016-08-31] MEDS: HEPARIN SODIUM, PORCINE 5000 UNITS/1 ML VIAL SQ SCH ×2 (08:31→20:51)
--- NOTE | 2016-08-31 17:03 | NUR ---
RT NOTE PT REFUSED MONTHLY TRACH CHANGE AT THIS TIME. PT REQUESTED TO HAVE IT CHANGED TOMORROW 6.4.17. NO RESPIRATORY DISTRESS NOTED AT THIS TIME.
[2016-08-31 19:42] VITALS: BP 123/83
[2016-08-31] MEDS: GUAIFENESIN/D-METHORPHAN HB 5 ML UDC PO PRN (20:52)
[2016-08-31] MEDS: NAPROXEN 500 MG TABLET PO PRN (20:52)
[2016-08-31] MEDS: TEMAZEPAM 15 MG CAPSULE PO SCH (21:18)
[2016-08-31] MEDS: GABAPENTIN 100 MG CAPSULE PO SCH (21:18)
[2016-08-31] MEDS: MONTELUKAST SODIUM (10MG) 10 MG TABLET PO SCH (21:18)
[2016-09-01] MEDS: IPRATROPIUM NEB FS 0.5 MG/2.5 ML AMPUL.NEB IH SCH ×4 (00:56→19:56)
[2016-09-01] MEDS: ALBUTEROL FS 2.5 MG/3 ML VIAL.NEB NEB SCH ×4 (00:56→19:56)
[2016-09-01] MEDS: PANTOPRAZOLE 40 MG TABLET.DR PO SCH (05:18)
[2016-09-01] MEDS: INSULIN LISPRO/ASPART 100 UNIT/ML CARTRIDGE SQ PRN ×4 (07:10→21:16)
[2016-09-01] MEDS: BLOOD SUGAR DIAGNOSTIC 1 EACH STRIP VI SCH ×4 (07:10→21:15)
[2016-09-01 07:36] VITALS: BP 133/81
[2016-09-01] MEDS: POLYVINYL ALCOHOL 15 ML BOTTLE EACHEYE SCH ×4 (08:38→20:39)
[2016-09-01] MEDS: ASCORBIC ACID 500 MG TABLET PO SCH (08:39)
[2016-09-01] MEDS: DOCUSATE SODIUM 100 MG CAPSULE PO SCH (08:39)
[2016-09-01] MEDS: SITAGLIPTIN PHOSPHATE 25 MG TABLET PO SCH (08:39)
[2016-09-01] MEDS: PROSOURCE / PROSTAT (PYXIS) 30 ML UDC PO SCH ×3 (08:39→17:23)
[2016-09-01] MEDS: SERTRALINE HCL 25 MG TABLET PO SCH (08:39)
[2016-09-01] MEDS: VIT B CMPLX 3/FA/VIT C/BIOTIN 1 TAB TABLET PO SCH (08:39)
[2016-09-01] MEDS: BUDESONIDE RESPULE INH 0.5 MG/2 ML AMPUL.NEB IH SCH ×2 (08:40→19:56)
[2016-09-01] MEDS: HEPARIN SODIUM, PORCINE 5000 UNITS/1 ML VIAL SQ SCH ×2 (08:40→20:39)
[2016-09-01] MEDS: RENAL NOVASOURCE (8OZ) 1 EA BOX PO SCH (08:43)
[2016-09-01] MEDS: HYDROGEN PEROXIDE 480 ML BOTTLE TP SCH ×2 (09:00→20:40)
[2016-09-01] MEDS: ZINC OXIDE 56.7 GM TUBE TP SCH ×2 (09:00→20:40)
[2016-09-01] MEDS: MINERAL OIL/PETROL OINT 396 GM JAR TP SCH ×2 (09:00→20:39)
[2016-09-01 20:00] VITALS: BP 131/88
[2016-09-01] MEDS: GUAIFENESIN/D-METHORPHAN HB 5 ML UDC PO PRN (20:41)
[2016-09-01] MEDS: GABAPENTIN 100 MG CAPSULE PO SCH (21:14)
[2016-09-01] MEDS: MONTELUKAST SODIUM (10MG) 10 MG TABLET PO SCH (21:15)
[2016-09-01] MEDS: TEMAZEPAM 15 MG CAPSULE PO SCH (21:15)
[2016-09-02] MEDS: ALBUTEROL FS 2.5 MG/3 ML VIAL.NEB NEB SCH ×4 (00:43→19:42)
[2016-09-02] MEDS: IPRATROPIUM NEB FS 0.5 MG/2.5 ML AMPUL.NEB IH SCH ×4 (00:43→19:42)
[2016-09-02] MEDS: PANTOPRAZOLE 40 MG TABLET.DR PO SCH (06:36)
[2016-09-02] MEDS: BLOOD SUGAR DIAGNOSTIC 1 EACH STRIP VI SCH ×4 (06:36→22:00)
[2016-09-02 08:01] VITALS: BP 139/77
[2016-09-02] MEDS: BUDESONIDE RESPULE INH 0.5 MG/2 ML AMPUL.NEB IH SCH ×2 (08:43→19:42)
[2016-09-02] MEDS: ASCORBIC ACID 500 MG TABLET PO SCH (08:48)
[2016-09-02] MEDS: PROSOURCE / PROSTAT (PYXIS) 30 ML UDC PO SCH ×3 (08:48→17:25)
[2016-09-02] MEDS: SITAGLIPTIN PHOSPHATE 25 MG TABLET PO SCH (08:48)
[2016-09-02] MEDS: POLYVINYL ALCOHOL 15 ML BOTTLE EACHEYE SCH ×4 (08:48→21:58)
[2016-09-02] MEDS: SERTRALINE HCL 25 MG TABLET PO SCH (08:48)
[2016-09-02] MEDS: RENAL NOVASOURCE (8OZ) 1 EA BOX PO SCH (08:48)
[2016-09-02] MEDS: VIT B CMPLX 3/FA/VIT C/BIOTIN 1 TAB TABLET PO SCH (08:48)
[2016-09-02] MEDS: DOCUSATE SODIUM 100 MG CAPSULE PO SCH (08:48)
[2016-09-02] MEDS: HEPARIN SODIUM, PORCINE 5000 UNITS/1 ML VIAL SQ SCH ×2 (08:49→21:59)
[2016-09-02] MEDS: HYDROGEN PEROXIDE 480 ML BOTTLE TP SCH ×2 (09:00→21:59)
[2016-09-02] MEDS: ZINC OXIDE 56.7 GM TUBE TP SCH ×2 (09:00→21:59)
[2016-09-02] MEDS: MINERAL OIL/PETROL OINT 396 GM JAR TP SCH ×2 (09:00→21:59)
--- NOTE | 2016-09-02 10:52 | NUR ---
TISHA Shah spoke to SW and informed her that resident has been wanting to be up in the wheelchair and has been stating that he wants to try walking again. WAQAR spoke to resident who stated that he would like to start walking again. Informed him that PT needs to come and do another evaluation and that she will notify the charge nurse. Asked resident if they wanted him to be placed in the wheelchair and resident stated that he first wants to see if he can start walking. Told resident that anytime he wants to be placed in the wheelchair, to notify her or subacute staff and he agreed. WAQAR informed charge nurse and waqar informed PT director Chi regarding resident's wishes. Charge nurse will follow up with Pt order and regulatory affairs coordinator also to follow up with Chi regarding this.
[2016-09-02] MEDS: INSULIN LISPRO/ASPART 100 UNIT/ML CARTRIDGE SQ PRN ×3 (12:54→22:10)
--- NOTE | 2016-09-02 15:13 | NUR ---
PATIENT STATES THAT HE WAS SOB BUT THAT HE FEELS OKAY NOW. HE SEEMS ANGRY WHEN SPEAKING TO ME. SP02= 100% ON 28% COOL AEROSOL. RR=16-18 BPM. RESPIRATIONS ARE EVEN AND UNLABORED AT THIS TIME. SUCTIONED TO OBTAIN MODERATE AMOUNT OF THICK HARRIS SECRETIONS. AMOUNT OF SECRETIONS HAS NOT CHANGED BUT PATIENT INSIST THAT IT HAS INCREASED FROM LAST WEEK. NOTIFIED NURSE (ALEX)
[2016-09-02 19:42] VITALS: BP 140/82
[2016-09-02] MEDS: GABAPENTIN 100 MG CAPSULE PO SCH (21:59)
[2016-09-02] MEDS: TEMAZEPAM 15 MG CAPSULE PO SCH (22:00)
[2016-09-02] MEDS: MONTELUKAST SODIUM (10MG) 10 MG TABLET PO SCH (22:00)
[2016-09-02] MEDS: GUAIFENESIN/D-METHORPHAN HB 5 ML UDC PO PRN (22:17)
[2016-09-03] MEDS: IPRATROPIUM NEB FS 0.5 MG/2.5 ML AMPUL.NEB IH SCH ×4 (01:07→20:23)
[2016-09-03] MEDS: ALBUTEROL FS 2.5 MG/3 ML VIAL.NEB NEB SCH ×4 (01:07→20:23)
[2016-09-03] MEDS: PANTOPRAZOLE 40 MG TABLET.DR PO SCH (05:59)
[2016-09-03] MEDS: BLOOD SUGAR DIAGNOSTIC 1 EACH STRIP VI SCH ×4 (06:41→21:11)
[2016-09-03] MEDS: BUDESONIDE RESPULE INH 0.5 MG/2 ML AMPUL.NEB IH SCH ×2 (08:09→20:23)
[2016-09-03] MEDS: SITAGLIPTIN PHOSPHATE 25 MG TABLET PO SCH (08:15)
[2016-09-03] MEDS: POLYVINYL ALCOHOL 15 ML BOTTLE EACHEYE SCH ×4 (08:15→21:09)
[2016-09-03] MEDS: DOCUSATE SODIUM 100 MG CAPSULE PO SCH (08:15)
[2016-09-03] MEDS: SERTRALINE HCL 25 MG TABLET PO SCH (08:16)
[2016-09-03] MEDS: HEPARIN SODIUM, PORCINE 5000 UNITS/1 ML VIAL SQ SCH ×2 (08:16→21:09)
[2016-09-03] MEDS: VIT B CMPLX 3/FA/VIT C/BIOTIN 1 TAB TABLET PO SCH (08:16)
[2016-09-03] MEDS: ASCORBIC ACID 500 MG TABLET PO SCH (08:16)
[2016-09-03] MEDS: PROSOURCE / PROSTAT (PYXIS) 30 ML UDC PO SCH ×3 (08:16→17:00)
[2016-09-03] MEDS: RENAL NOVASOURCE (8OZ) 1 EA BOX PO SCH (08:17)
[2016-09-03] MEDS: GUAIFENESIN/D-METHORPHAN HB 5 ML UDC PO PRN ×2 (08:18→21:13)
[2016-09-03 08:19] VITALS: BP 125/79
[2016-09-03] MEDS: TRAMADOL HCL 50 MG TABLET PO PRN (08:19)
[2016-09-03] MEDS: ERGOCALCIFEROL (VITAMIN D 2) 50,000 UNIT CAPSULE PO SCH (09:00)
[2016-09-03] MEDS: ZINC OXIDE 56.7 GM TUBE TP SCH ×2 (09:00→21:10)
[2016-09-03] MEDS: HYDROGEN PEROXIDE 480 ML BOTTLE TP SCH ×2 (09:00→21:10)
[2016-09-03] MEDS: MINERAL OIL/PETROL OINT 396 GM JAR TP SCH ×2 (09:00→21:10)
[2016-09-03] MEDS: INSULIN LISPRO/ASPART 100 UNIT/ML CARTRIDGE SQ PRN (18:47)
[2016-09-03 19:55] VITALS: BP 137/87
[2016-09-03] MEDS: GABAPENTIN 100 MG CAPSULE PO SCH (21:10)
[2016-09-03] MEDS: TEMAZEPAM 15 MG CAPSULE PO SCH (21:10)
[2016-09-03] MEDS: MONTELUKAST SODIUM (10MG) 10 MG TABLET PO SCH (21:10)
[2016-09-03] MEDS: NAPROXEN 500 MG TABLET PO PRN (21:13)
[2016-09-04] MEDS: IPRATROPIUM NEB FS 0.5 MG/2.5 ML AMPUL.NEB IH SCH ×4 (01:30→19:34)
[2016-09-04] MEDS: ALBUTEROL FS 2.5 MG/3 ML VIAL.NEB NEB SCH ×4 (01:30→19:34)
[2016-09-04] MEDS: PANTOPRAZOLE 40 MG TABLET.DR PO SCH (06:01)
[2016-09-04] MEDS: BLOOD SUGAR DIAGNOSTIC 1 EACH STRIP VI SCH ×4 (07:30→21:19)
[2016-09-04 07:53] VITALS: BP 140/91
[2016-09-04] MEDS: BUDESONIDE RESPULE INH 0.5 MG/2 ML AMPUL.NEB IH SCH ×2 (08:32→19:34)
[2016-09-04] MEDS: PROSOURCE / PROSTAT (PYXIS) 30 ML UDC PO SCH ×3 (09:00→17:49)
[2016-09-04] MEDS: VIT B CMPLX 3/FA/VIT C/BIOTIN 1 TAB TABLET PO SCH (09:00)
[2016-09-04] MEDS: MINERAL OIL/PETROL OINT 396 GM JAR TP SCH ×2 (09:00→21:18)
[2016-09-04] MEDS: HYDROGEN PEROXIDE 480 ML BOTTLE TP SCH ×2 (09:00→21:18)
[2016-09-04] MEDS: SERTRALINE HCL 25 MG TABLET PO SCH (09:00)
[2016-09-04] MEDS: ZINC OXIDE 56.7 GM TUBE TP SCH ×2 (09:00→21:18)
[2016-09-04] MEDS: POLYVINYL ALCOHOL 15 ML BOTTLE EACHEYE SCH ×4 (09:00→21:18)
[2016-09-04] MEDS: SITAGLIPTIN PHOSPHATE 25 MG TABLET PO SCH (09:00)
[2016-09-04] MEDS: RENAL NOVASOURCE (8OZ) 1 EA BOX PO SCH (09:00)
[2016-09-04] MEDS: DOCUSATE SODIUM 100 MG CAPSULE PO SCH (09:00)
[2016-09-04] MEDS: HEPARIN SODIUM, PORCINE 5000 UNITS/1 ML VIAL SQ SCH ×2 (09:00→21:18)
[2016-09-04] MEDS: ASCORBIC ACID 500 MG TABLET PO SCH (09:00)
[2016-09-04] MEDS: GUAIFENESIN/D-METHORPHAN HB 5 ML UDC PO PRN (15:49)
--- NOTE | 2016-09-04 16:07 | NUR ---
RT NOTED: TRACH CHANGE DONE. NO BLEEDING OR REDNESS NOTED. PATIENT CONTINUOUSLY COUGHING AFTER CHANGE. MONITORED FOR A WHILE THEN HE STOPPED AND SAID HE WAS OKAY. NURSE AWARE.
--- NOTE | 2016-09-04 16:20 | NUR ---
Notified Dr. Gardner that resident is complaining that he feels like he is choking in the morning and feels like he needs to be suctioned every 10 min. His secretions thick and he spits a lot. New order given by Dr. Gardner for Mucomyst Q 12 h x 10 days. Order noted and carried out. Resident made aware of new order.
[2016-09-04] MEDS ORDERED: ACETYLCYSTEINE 10% SOLN 400 MG/4 ML VIAL IH ONE (19:30)
[2016-09-04 19:54] VITALS: BP 145/93
[2016-09-04] MEDS: TEMAZEPAM 15 MG CAPSULE PO SCH (21:19)
[2016-09-04] MEDS: MONTELUKAST SODIUM (10MG) 10 MG TABLET PO SCH (21:19)
[2016-09-04] MEDS: NAPROXEN 500 MG TABLET PO PRN (21:19)
[2016-09-04] MEDS: GABAPENTIN 100 MG CAPSULE PO SCH (21:19)
[2016-09-05] MEDS: IPRATROPIUM NEB FS 0.5 MG/2.5 ML AMPUL.NEB IH SCH ×4 (00:50→19:30)
[2016-09-05] MEDS: ALBUTEROL FS 2.5 MG/3 ML VIAL.NEB NEB SCH ×4 (00:50→19:30)
[2016-09-05] MEDS: PANTOPRAZOLE 40 MG TABLET.DR PO SCH (06:18)
[2016-09-05] MEDS: BLOOD SUGAR DIAGNOSTIC 1 EACH STRIP VI SCH ×4 (07:30→21:31)
[2016-09-05] MEDS: ACETYLCYSTEINE 10% SOLN 400 MG/4 ML VIAL IH SCH ×2 (07:42→19:30)
[2016-09-05 08:03] VITALS: BP 133/88
[2016-09-05] MEDS: BUDESONIDE RESPULE INH 0.5 MG/2 ML AMPUL.NEB IH SCH ×2 (08:11→20:52)
[2016-09-05] MEDS: DOCUSATE SODIUM 100 MG CAPSULE PO SCH (09:00)
[2016-09-05] MEDS: POLYVINYL ALCOHOL 15 ML BOTTLE EACHEYE SCH ×4 (09:00→21:30)
[2016-09-05] MEDS: ASCORBIC ACID 500 MG TABLET PO SCH (09:00)
[2016-09-05] MEDS: HEPARIN SODIUM, PORCINE 5000 UNITS/1 ML VIAL SQ SCH ×2 (09:00→21:30)
[2016-09-05] MEDS: RENAL NOVASOURCE (8OZ) 1 EA BOX PO SCH (09:00)
[2016-09-05] MEDS: SERTRALINE HCL 25 MG TABLET PO SCH (09:00)
[2016-09-05] MEDS: ZINC OXIDE 56.7 GM TUBE TP SCH ×2 (09:00→21:31)
[2016-09-05] MEDS: HYDROGEN PEROXIDE 480 ML BOTTLE TP SCH ×2 (09:00→21:31)
[2016-09-05] MEDS: SITAGLIPTIN PHOSPHATE 25 MG TABLET PO SCH (09:00)
[2016-09-05] MEDS: PROSOURCE / PROSTAT (PYXIS) 30 ML UDC PO SCH ×3 (09:00→17:00)
[2016-09-05] MEDS: MINERAL OIL/PETROL OINT 396 GM JAR TP SCH ×2 (09:00→21:30)
[2016-09-05] MEDS: VIT B CMPLX 3/FA/VIT C/BIOTIN 1 TAB TABLET PO SCH (09:00)
[2016-09-05] MEDS: GUAIFENESIN/D-METHORPHAN HB 5 ML UDC PO PRN ×2 (14:57→21:32)
[2016-09-05] MEDS: NAPROXEN 500 MG TABLET PO PRN (14:57)
--- NOTE | 2016-09-05 16:40 | NUR ---
Pt has been refusing Novasource renal supplement. Insulator Tester aware. Received order to DC Novasource renal. Pt eating well.
[2016-09-05 20:19] VITALS: BP 145/95
[2016-09-05] MEDS: TEMAZEPAM 15 MG CAPSULE PO SCH (21:31)
[2016-09-05] MEDS: GABAPENTIN 100 MG CAPSULE PO SCH (21:31)
[2016-09-05] MEDS: MONTELUKAST SODIUM (10MG) 10 MG TABLET PO SCH (21:31)
[2016-09-06] MEDS: ALBUTEROL FS 2.5 MG/3 ML VIAL.NEB NEB SCH ×4 (01:30→20:20)
[2016-09-06] MEDS: IPRATROPIUM NEB FS 0.5 MG/2.5 ML AMPUL.NEB IH SCH ×4 (01:30→20:20)
[2016-09-06] MEDS: PANTOPRAZOLE 40 MG TABLET.DR PO SCH (06:00)
[2016-09-06] MEDS: BLOOD SUGAR DIAGNOSTIC 1 EACH STRIP VI SCH ×4 (07:08→21:21)
[2016-09-06] MEDS: INSULIN LISPRO/ASPART 100 UNIT/ML CARTRIDGE SQ PRN ×3 (07:09→21:25)
[2016-09-06 07:51] VITALS: BP 124/87
[2016-09-06] MEDS: BUDESONIDE RESPULE INH 0.5 MG/2 ML AMPUL.NEB IH SCH ×2 (08:04→20:33)
[2016-09-06] MEDS: SERTRALINE HCL 25 MG TABLET PO SCH (08:05)
[2016-09-06] MEDS: PROSOURCE / PROSTAT (PYXIS) 30 ML UDC PO SCH ×3 (08:05→16:32)
[2016-09-06] MEDS: ASCORBIC ACID 500 MG TABLET PO SCH (08:05)
[2016-09-06] MEDS: VIT B CMPLX 3/FA/VIT C/BIOTIN 1 TAB TABLET PO SCH (08:05)
[2016-09-06] MEDS: POLYVINYL ALCOHOL 15 ML BOTTLE EACHEYE SCH ×4 (08:05→20:59)
[2016-09-06] MEDS: ACETYLCYSTEINE 10% SOLN 400 MG/4 ML VIAL IH SCH ×2 (08:05→20:20)
[2016-09-06] MEDS: SITAGLIPTIN PHOSPHATE 25 MG TABLET PO SCH (08:05)
[2016-09-06] MEDS: DOCUSATE SODIUM 100 MG CAPSULE PO SCH (08:05)
[2016-09-06] MEDS: GUAIFENESIN/D-METHORPHAN HB 5 ML UDC PO PRN ×2 (08:07→21:14)
[2016-09-06] MEDS: HEPARIN SODIUM, PORCINE 5000 UNITS/1 ML VIAL SQ SCH ×2 (08:08→21:06)
[2016-09-06] MEDS: HYDROGEN PEROXIDE 480 ML BOTTLE TP SCH ×2 (08:09→20:59)
[2016-09-06] MEDS: MINERAL OIL/PETROL OINT 396 GM JAR TP SCH ×2 (08:09→20:59)
[2016-09-06] MEDS: ZINC OXIDE 56.7 GM TUBE TP SCH ×2 (08:09→20:59)
--- NOTE | 2016-09-06 08:10 | NUR ---
Resident in bed awake, alert, eating his breakfast. Patient claims that he feels better and denies feeling like he is choking as previously reported by patient. Continue to receive Mucomyst via N .
--- NOTE | 2016-09-06 11:47 | NUR ---
Called the office of social security with the resident but resident could not verify the information as he had a difficult time speaking. Resident never received the letter from the social security office regarding appointing his payee and brother informed SW last time that office would be sending a letter for him to sign. Dashawn from [facility] stated to have resident's brother call and request a new letter to be sent. FERNANDO called resident's brother Aly but he did not answer and FERNANDO left a voicemail with the above mentioned information. FERNANDO will follow up.
--- NOTE | 2016-09-06 14:25 | NUR ---
IDT meeting held, family unable to attend. Current orders, new medications and treatments reviewed by the team. NNO given.
[2016-09-06] MEDS: NAPROXEN 500 MG TABLET PO PRN (16:35)
[2016-09-06] MEDS: BISACODYL SUPP (10 MG) 10 MG/SUPP.RECT SUPP.RECT RC PRN (16:36)
[2016-09-06 20:16] VITALS: BP 133/91
[2016-09-06] MEDS: GABAPENTIN 100 MG CAPSULE PO SCH (21:00)
[2016-09-06] MEDS: TEMAZEPAM 15 MG CAPSULE PO SCH (21:05)
[2016-09-06] MEDS: MONTELUKAST SODIUM (10MG) 10 MG TABLET PO SCH (21:05)
[2016-09-07] MEDS: IPRATROPIUM NEB FS 0.5 MG/2.5 ML AMPUL.NEB IH SCH ×4 (02:28→19:30)
[2016-09-07] MEDS: ALBUTEROL FS 2.5 MG/3 ML VIAL.NEB NEB SCH ×4 (02:28→19:30)
[2016-09-07] MEDS: PANTOPRAZOLE 40 MG TABLET.DR PO SCH (06:23)
[2016-09-07] MEDS: BLOOD SUGAR DIAGNOSTIC 1 EACH STRIP VI SCH ×4 (06:31→21:48)
[2016-09-07 07:52] VITALS: BP 125/81
[2016-09-07] MEDS: BUDESONIDE RESPULE INH 0.5 MG/2 ML AMPUL.NEB IH SCH ×2 (08:22→20:36)
[2016-09-07] MEDS: ACETYLCYSTEINE 10% SOLN 400 MG/4 ML VIAL IH SCH ×2 (08:22→19:30)
[2016-09-07] MEDS: DOCUSATE SODIUM 100 MG CAPSULE PO SCH (08:23)
[2016-09-07] MEDS: PROSOURCE / PROSTAT (PYXIS) 30 ML UDC PO SCH ×3 (08:23→16:56)
[2016-09-07] MEDS: ASCORBIC ACID 500 MG TABLET PO SCH (08:23)
[2016-09-07] MEDS: SITAGLIPTIN PHOSPHATE 25 MG TABLET PO SCH (08:23)
[2016-09-07] MEDS: VIT B CMPLX 3/FA/VIT C/BIOTIN 1 TAB TABLET PO SCH (08:23)
[2016-09-07] MEDS: POLYVINYL ALCOHOL 15 ML BOTTLE EACHEYE SCH ×4 (08:23→21:47)
[2016-09-07] MEDS: SERTRALINE HCL 25 MG TABLET PO SCH (08:23)
[2016-09-07] MEDS: HEPARIN SODIUM, PORCINE 5000 UNITS/1 ML VIAL SQ SCH ×2 (08:27→21:47)
[2016-09-07] MEDS: MINERAL OIL/PETROL OINT 396 GM JAR TP SCH ×2 (08:28→21:47)
[2016-09-07] MEDS: ATARAX 25 MG PO PRN (08:28)
[2016-09-07] MEDS: NAPROXEN 500 MG TABLET PO PRN (08:28)
[2016-09-07] MEDS: HYDROGEN PEROXIDE 480 ML BOTTLE TP SCH ×2 (09:00→21:47)
[2016-09-07] MEDS: ZINC OXIDE 56.7 GM TUBE TP SCH ×2 (09:00→21:47)
[2016-09-07] MEDS: GUAIFENESIN/D-METHORPHAN HB 5 ML UDC PO PRN ×2 (09:33→21:48)
[2016-09-07 20:05] VITALS: BP 139/87
[2016-09-07] MEDS: GABAPENTIN 100 MG CAPSULE PO SCH (21:47)
[2016-09-07] MEDS: MONTELUKAST SODIUM (10MG) 10 MG TABLET PO SCH (21:48)
[2016-09-07] MEDS: TEMAZEPAM 15 MG CAPSULE PO SCH (21:48)
[2016-09-08] MEDS: ALBUTEROL FS 2.5 MG/3 ML VIAL.NEB NEB SCH ×4 (02:29→21:35)
[2016-09-08] MEDS: IPRATROPIUM NEB FS 0.5 MG/2.5 ML AMPUL.NEB IH SCH ×4 (02:29→21:35)
[2016-09-08] MEDS: PANTOPRAZOLE 40 MG TABLET.DR PO SCH (05:34)
[2016-09-08] MEDS: BLOOD SUGAR DIAGNOSTIC 1 EACH STRIP VI SCH ×4 (07:30→21:13)
[2016-09-08] MEDS: ACETYLCYSTEINE 10% SOLN 400 MG/4 ML VIAL IH SCH ×2 (08:18→21:35)
[2016-09-08] MEDS: BUDESONIDE RESPULE INH 0.5 MG/2 ML AMPUL.NEB IH SCH ×2 (08:18→21:12)
[2016-09-08] MEDS: INSULIN LISPRO/ASPART 100 UNIT/ML CARTRIDGE SQ PRN ×3 (08:43→17:31)
[2016-09-08] MEDS: GUAIFENESIN/D-METHORPHAN HB 5 ML UDC PO PRN ×2 (08:49→21:13)
[2016-09-08] MEDS: TRAMADOL HCL 50 MG TABLET PO PRN (08:50)
[2016-09-08] MEDS: VIT B CMPLX 3/FA/VIT C/BIOTIN 1 TAB TABLET PO SCH (08:51)
[2016-09-08] MEDS: PROSOURCE / PROSTAT (PYXIS) 30 ML UDC PO SCH ×3 (08:51→17:30)
[2016-09-08] MEDS: ASCORBIC ACID 500 MG TABLET PO SCH (08:51)
[2016-09-08] MEDS: POLYVINYL ALCOHOL 15 ML BOTTLE EACHEYE SCH ×4 (08:51→21:12)
[2016-09-08] MEDS: SITAGLIPTIN PHOSPHATE 25 MG TABLET PO SCH (08:51)
[2016-09-08] MEDS: DOCUSATE SODIUM 100 MG CAPSULE PO SCH (08:51)
[2016-09-08] MEDS: HEPARIN SODIUM, PORCINE 5000 UNITS/1 ML VIAL SQ SCH ×2 (08:51→21:12)
[2016-09-08] MEDS: SERTRALINE HCL 25 MG TABLET PO SCH (08:51)
[2016-09-08] MEDS: HYDROGEN PEROXIDE 480 ML BOTTLE TP SCH ×2 (08:52→21:13)
[2016-09-08] MEDS: MINERAL OIL/PETROL OINT 396 GM JAR TP SCH ×2 (08:52→21:13)
[2016-09-08] MEDS: ZINC OXIDE 56.7 GM TUBE TP SCH ×2 (08:52→21:13)
[2016-09-08 19:49] VITALS: BP 142/97
[2016-09-08] MEDS: MONTELUKAST SODIUM (10MG) 10 MG TABLET PO SCH (21:13)
[2016-09-08] MEDS: TEMAZEPAM 15 MG CAPSULE PO SCH (21:13)
[2016-09-08] MEDS: GABAPENTIN 100 MG CAPSULE PO SCH (21:13)
[2016-09-09] MEDS: IPRATROPIUM NEB FS 0.5 MG/2.5 ML AMPUL.NEB IH SCH ×4 (01:50→19:30)
[2016-09-09] MEDS: ALBUTEROL FS 2.5 MG/3 ML VIAL.NEB NEB SCH ×4 (01:50→19:30)
[2016-09-09] MEDS: PANTOPRAZOLE 40 MG TABLET.DR PO SCH (05:48)
[2016-09-09 07:29] VITALS: BP 133/84
[2016-09-09] MEDS: ACETYLCYSTEINE 10% SOLN 400 MG/4 ML VIAL IH SCH ×2 (07:30→19:30)
[2016-09-09] MEDS: BUDESONIDE RESPULE INH 0.5 MG/2 ML AMPUL.NEB IH SCH ×2 (08:16→21:06)
[2016-09-09] MEDS: BLOOD SUGAR DIAGNOSTIC 1 EACH STRIP VI SCH ×4 (08:29→21:17)
[2016-09-09] MEDS: POLYVINYL ALCOHOL 15 ML BOTTLE EACHEYE SCH ×4 (08:44→21:16)
[2016-09-09] MEDS: ATARAX 25 MG PO PRN ×2 (08:44→08:55)
[2016-09-09] MEDS: GUAIFENESIN/D-METHORPHAN HB 5 ML UDC PO PRN ×3 (08:44→21:17)
[2016-09-09] MEDS: DOCUSATE SODIUM 100 MG CAPSULE PO SCH (08:44)
[2016-09-09] MEDS: ASCORBIC ACID 500 MG TABLET PO SCH (08:44)
[2016-09-09] MEDS: VIT B CMPLX 3/FA/VIT C/BIOTIN 1 TAB TABLET PO SCH (08:44)
[2016-09-09] MEDS: NAPROXEN 500 MG TABLET PO PRN (08:44)
[2016-09-09] MEDS: PROSOURCE / PROSTAT (PYXIS) 30 ML UDC PO SCH ×3 (08:44→17:00)
[2016-09-09] MEDS: SITAGLIPTIN PHOSPHATE 25 MG TABLET PO SCH (08:44)
[2016-09-09] MEDS: SERTRALINE HCL 25 MG TABLET PO SCH (08:44)
[2016-09-09] MEDS: MINERAL OIL/PETROL OINT 396 GM JAR TP SCH ×2 (08:45→21:17)
[2016-09-09] MEDS: HEPARIN SODIUM, PORCINE 5000 UNITS/1 ML VIAL SQ SCH ×2 (08:45→21:16)
[2016-09-09] MEDS: HYDROGEN PEROXIDE 480 ML BOTTLE TP SCH ×2 (11:00→21:17)
[2016-09-09] MEDS: ZINC OXIDE 56.7 GM TUBE TP SCH ×2 (11:00→21:17)
[2016-09-09 19:48] VITALS: BP 138/86
[2016-09-09] MEDS: MONTELUKAST SODIUM (10MG) 10 MG TABLET PO SCH (21:17)
[2016-09-09] MEDS: GABAPENTIN 100 MG CAPSULE PO SCH (21:17)
[2016-09-09] MEDS: TEMAZEPAM 15 MG CAPSULE PO SCH (21:17)
[2016-09-09] MEDS: INSULIN LISPRO/ASPART 100 UNIT/ML CARTRIDGE SQ PRN (21:18)
[2016-09-10] MEDS: IPRATROPIUM NEB FS 0.5 MG/2.5 ML AMPUL.NEB IH SCH ×4 (02:17→19:30)
[2016-09-10] MEDS: ALBUTEROL FS 2.5 MG/3 ML VIAL.NEB NEB SCH ×4 (02:17→19:30)
[2016-09-10] MEDS: PANTOPRAZOLE 40 MG TABLET.DR PO SCH (05:44)
[2016-09-10] MEDS: BLOOD SUGAR DIAGNOSTIC 1 EACH STRIP VI SCH ×4 (07:20→21:14)
[2016-09-10] MEDS: ACETYLCYSTEINE 10% SOLN 400 MG/4 ML VIAL IH SCH ×2 (08:26→19:30)
[2016-09-10] MEDS: BUDESONIDE RESPULE INH 0.5 MG/2 ML AMPUL.NEB IH SCH ×2 (08:43→20:53)
[2016-09-10] MEDS: DOCUSATE SODIUM 100 MG CAPSULE PO SCH (08:56)
[2016-09-10] MEDS: POLYVINYL ALCOHOL 15 ML BOTTLE EACHEYE SCH ×4 (08:56→21:13)
[2016-09-10] MEDS: ASCORBIC ACID 500 MG TABLET PO SCH (08:56)
[2016-09-10] MEDS: SERTRALINE HCL 25 MG TABLET PO SCH (08:56)
[2016-09-10] MEDS: VIT B CMPLX 3/FA/VIT C/BIOTIN 1 TAB TABLET PO SCH (08:56)
[2016-09-10] MEDS: SITAGLIPTIN PHOSPHATE 25 MG TABLET PO SCH (08:56)
[2016-09-10] MEDS: PROSOURCE / PROSTAT (PYXIS) 30 ML UDC PO SCH ×3 (08:56→17:10)
[2016-09-10] MEDS: HEPARIN SODIUM, PORCINE 5000 UNITS/1 ML VIAL SQ SCH ×2 (08:57→21:13)
[2016-09-10] MEDS: MINERAL OIL/PETROL OINT 396 GM JAR TP SCH ×2 (08:57→21:14)
[2016-09-10] MEDS: ERGOCALCIFEROL (VITAMIN D 2) 50,000 UNIT CAPSULE PO SCH (09:00)
[2016-09-10] MEDS: ZINC OXIDE 56.7 GM TUBE TP SCH ×2 (16:00→21:14)
[2016-09-10] MEDS: HYDROGEN PEROXIDE 480 ML BOTTLE TP SCH ×2 (16:00→21:14)
[2016-09-10 19:32] VITALS: BP 124/89
[2016-09-10] MEDS: TEMAZEPAM 15 MG CAPSULE PO SCH (21:14)
[2016-09-10] MEDS: MONTELUKAST SODIUM (10MG) 10 MG TABLET PO SCH (21:14)
[2016-09-10] MEDS: GABAPENTIN 100 MG CAPSULE PO SCH (21:14)
[2016-09-10] MEDS: INSULIN LISPRO/ASPART 100 UNIT/ML CARTRIDGE SQ PRN (21:15)
[2016-09-11] MEDS: ALBUTEROL FS 2.5 MG/3 ML VIAL.NEB NEB SCH ×4 (01:43→19:48)
[2016-09-11] MEDS: IPRATROPIUM NEB FS 0.5 MG/2.5 ML AMPUL.NEB IH SCH ×4 (01:43→19:48)
[2016-09-11] MEDS: PANTOPRAZOLE 40 MG TABLET.DR PO SCH (05:50)
[2016-09-11] MEDS: ACETYLCYSTEINE 10% SOLN 400 MG/4 ML VIAL IH SCH ×2 (07:21→19:48)
[2016-09-11] MEDS: BLOOD SUGAR DIAGNOSTIC 1 EACH STRIP VI SCH ×4 (07:30→21:29)
[2016-09-11 07:36] VITALS: BP 146/93
[2016-09-11] MEDS: SITAGLIPTIN PHOSPHATE 25 MG TABLET PO SCH (09:00)
[2016-09-11] MEDS: BUDESONIDE RESPULE INH 0.5 MG/2 ML AMPUL.NEB IH SCH ×2 (09:00→20:01)
[2016-09-11] MEDS: DOCUSATE SODIUM 100 MG CAPSULE PO SCH (09:00)
[2016-09-11] MEDS: VIT B CMPLX 3/FA/VIT C/BIOTIN 1 TAB TABLET PO SCH (09:00)
[2016-09-11] MEDS: POLYVINYL ALCOHOL 15 ML BOTTLE EACHEYE SCH ×4 (09:00→21:28)
[2016-09-11] MEDS: ASCORBIC ACID 500 MG TABLET PO SCH (09:00)
[2016-09-11] MEDS: HEPARIN SODIUM, PORCINE 5000 UNITS/1 ML VIAL SQ SCH ×2 (09:00→21:28)
[2016-09-11] MEDS: SERTRALINE HCL 25 MG TABLET PO SCH (09:00)
[2016-09-11] MEDS: HYDROGEN PEROXIDE 480 ML BOTTLE TP SCH ×2 (09:00→21:29)
[2016-09-11] MEDS: PROSOURCE / PROSTAT (PYXIS) 30 ML UDC PO SCH ×3 (09:00→17:10)
[2016-09-11] MEDS: ZINC OXIDE 56.7 GM TUBE TP SCH ×2 (09:00→21:29)
[2016-09-11] MEDS: MINERAL OIL/PETROL OINT 396 GM JAR TP SCH ×2 (09:00→21:28)
[2016-09-11] MEDS: INSULIN LISPRO/ASPART 100 UNIT/ML CARTRIDGE SQ PRN ×2 (17:20→21:30)
[2016-09-11 20:38] VITALS: BP 142/96
[2016-09-11] MEDS: MONTELUKAST SODIUM (10MG) 10 MG TABLET PO SCH (21:29)
[2016-09-11] MEDS: GUAIFENESIN/D-METHORPHAN HB 5 ML UDC PO PRN (21:29)
[2016-09-11] MEDS: GABAPENTIN 100 MG CAPSULE PO SCH (21:29)
[2016-09-11] MEDS: NAPROXEN 500 MG TABLET PO PRN (21:29)
[2016-09-11] MEDS: TEMAZEPAM 15 MG CAPSULE PO SCH (21:29)
[2016-09-11] MEDS: MAG HYDROX/AL HYDROX/SIMETH 30 ML UDC PO PRN (21:29)
[2016-09-12] MEDS: ALBUTEROL FS 2.5 MG/3 ML VIAL.NEB NEB SCH ×4 (02:08→19:41)
[2016-09-12] MEDS: IPRATROPIUM NEB FS 0.5 MG/2.5 ML AMPUL.NEB IH SCH ×4 (02:08→19:41)
[2016-09-12] MEDS: PANTOPRAZOLE 40 MG TABLET.DR PO SCH (05:24)
[2016-09-12] MEDS: ATARAX 25 MG PO PRN ×3 (05:25→21:16)
[2016-09-12] MEDS: BACLOFEN (10 MG) 10 MG TABLET PO PRN (05:25)
[2016-09-12] MEDS: INSULIN LISPRO/ASPART 100 UNIT/ML CARTRIDGE SQ PRN ×3 (06:42→21:17)
[2016-09-12] MEDS: BLOOD SUGAR DIAGNOSTIC 1 EACH STRIP VI SCH ×4 (06:42→21:16)
[2016-09-12 07:23] VITALS: BP 123/73
[2016-09-12] MEDS: ACETYLCYSTEINE 10% SOLN 400 MG/4 ML VIAL IH SCH ×2 (07:30→19:41)
[2016-09-12] MEDS: ASCORBIC ACID 500 MG TABLET PO SCH (08:40)
[2016-09-12] MEDS: POLYVINYL ALCOHOL 15 ML BOTTLE EACHEYE SCH ×4 (08:40→20:42)
[2016-09-12] MEDS: SITAGLIPTIN PHOSPHATE 25 MG TABLET PO SCH (08:40)
[2016-09-12] MEDS: DOCUSATE SODIUM 100 MG CAPSULE PO SCH (08:40)
[2016-09-12] MEDS: VIT B CMPLX 3/FA/VIT C/BIOTIN 1 TAB TABLET PO SCH (08:40)
[2016-09-12] MEDS: SERTRALINE HCL 25 MG TABLET PO SCH (08:40)
[2016-09-12] MEDS: PROSOURCE / PROSTAT (PYXIS) 30 ML UDC PO SCH ×3 (08:40→16:40)
[2016-09-12] MEDS: MINERAL OIL/PETROL OINT 396 GM JAR TP SCH ×2 (08:41→20:42)
[2016-09-12] MEDS: HEPARIN SODIUM, PORCINE 5000 UNITS/1 ML VIAL SQ SCH ×2 (08:41→20:42)
[2016-09-12] MEDS: HYDROGEN PEROXIDE 480 ML BOTTLE TP SCH ×2 (08:42→20:42)
[2016-09-12] MEDS: ZINC OXIDE 56.7 GM TUBE TP SCH ×2 (08:42→20:42)
[2016-09-12] MEDS: NAPROXEN 500 MG TABLET PO PRN ×2 (08:43→21:16)
[2016-09-12] MEDS: GUAIFENESIN/D-METHORPHAN HB 5 ML UDC PO PRN ×2 (08:43→21:16)
[2016-09-12] MEDS: BUDESONIDE RESPULE INH 0.5 MG/2 ML AMPUL.NEB IH SCH ×2 (08:44→21:00)
--- NOTE | 2016-09-12 15:00 | NUR ---
Seen by ARNOL Petty. Notified her that pt verbalized earlier that his brother will be visiting him on Friday and he said that he gets a headache whenever he wears the PMV. ARNOL Petty said she has never heard the PMV causing headaches but she and the pt agreed that he can try nasal O2 with the PMV. Received from ARNOL Petty to have ST re-evaluate pt for voice strengthening, and to change trach tube from Shiley # 7 XLT cuffed to # 6 XLT cuffed tomorrow. Pt aware of new orders.
[2016-09-12 20:41] VITALS: BP 125/86
[2016-09-12] MEDS: TEMAZEPAM 15 MG CAPSULE PO SCH (21:16)
[2016-09-12] MEDS: GABAPENTIN 100 MG CAPSULE PO SCH (21:16)
[2016-09-12] MEDS: MONTELUKAST SODIUM (10MG) 10 MG TABLET PO SCH (21:16)
[2016-09-13] MEDS: IPRATROPIUM NEB FS 0.5 MG/2.5 ML AMPUL.NEB IH SCH ×4 (01:58→19:11)
[2016-09-13] MEDS: ALBUTEROL FS 2.5 MG/3 ML VIAL.NEB NEB SCH ×4 (01:58→19:11)
[2016-09-13] MEDS: PANTOPRAZOLE 40 MG TABLET.DR PO SCH (05:28)
[2016-09-13] MEDS: BLOOD SUGAR DIAGNOSTIC 1 EACH STRIP VI SCH ×4 (06:45→21:58)
[2016-09-13] MEDS: INSULIN LISPRO/ASPART 100 UNIT/ML CARTRIDGE SQ PRN ×3 (06:45→22:00)
--- NOTE | 2016-09-13 07:27 | NUR ---
Late Entry for 09/12/16 - Pt noted with episodes of refusal to take Prostat and Artificial eyedrop. Explained to pt the benefits of taking those meds. Will continue to offer on another time. Charge Nurse made aware.
[2016-09-13 08:01] VITALS: BP 139/92
[2016-09-13] MEDS: SITAGLIPTIN PHOSPHATE 25 MG TABLET PO SCH (08:11)
[2016-09-13] MEDS: PROSOURCE / PROSTAT (PYXIS) 30 ML UDC PO SCH ×3 (08:11→17:00)
[2016-09-13] MEDS: VIT B CMPLX 3/FA/VIT C/BIOTIN 1 TAB TABLET PO SCH (08:11)
[2016-09-13] MEDS: ASCORBIC ACID 500 MG TABLET PO SCH (08:11)
[2016-09-13] MEDS: DOCUSATE SODIUM 100 MG CAPSULE PO SCH (08:11)
[2016-09-13] MEDS: POLYVINYL ALCOHOL 15 ML BOTTLE EACHEYE SCH ×4 (08:11→21:58)
[2016-09-13] MEDS: SERTRALINE HCL 25 MG TABLET PO SCH (08:11)
[2016-09-13] MEDS: MINERAL OIL/PETROL OINT 396 GM JAR TP SCH ×2 (08:12→21:58)
[2016-09-13] MEDS: HEPARIN SODIUM, PORCINE 5000 UNITS/1 ML VIAL SQ SCH ×2 (08:12→21:58)
[2016-09-13] MEDS: ACETYLCYSTEINE 10% SOLN 400 MG/4 ML VIAL IH SCH ×2 (08:18→19:11)
[2016-09-13] MEDS: BUDESONIDE RESPULE INH 0.5 MG/2 ML AMPUL.NEB IH SCH ×2 (08:49→20:08)
[2016-09-13] MEDS: HYDROGEN PEROXIDE 480 ML BOTTLE TP SCH ×2 (11:45→21:58)
[2016-09-13] MEDS: ZINC OXIDE 56.7 GM TUBE TP SCH ×2 (11:45→21:58)
--- NOTE | 2016-09-13 11:58 | NUR ---
CHANGED TRACH TO SHILEY #6 XLT PROXIMAL CUFFED (DEFLATED) PER MD ORDER. NO BLEEDING OR REDNESS NOTED. PT TOLERATED PROCEDURE WELL. NO SHORTNESS OF BREATH OR RESPIRATORY DISTRESS NOTED. NO COMPLICATIONS NOTED DURING TRACH CHANGE. PT AIRWAY IS PATENT AND SECURE. SPARE TRACH AND AMBU BAG AT BEDSIDE. WILL CONTINUE TO MONITOR PT. RN AWARE. Addendum: 09/13/16 at 1602 by SAUL CRUZ RT Amended: Links added.
[2016-09-13] MEDS: ONDANSETRON 4 MG TAB.RAPDIS PO PRN (12:26)
[2016-09-13 19:50] VITALS: BP 118/76
[2016-09-13] MEDS: TEMAZEPAM 15 MG CAPSULE PO SCH (21:58)
[2016-09-13] MEDS: MONTELUKAST SODIUM (10MG) 10 MG TABLET PO SCH (21:58)
[2016-09-13] MEDS: GABAPENTIN 100 MG CAPSULE PO SCH (21:58)
[2016-09-13] MEDS: GUAIFENESIN/D-METHORPHAN HB 5 ML UDC PO PRN (21:59)
[2016-09-13] MEDS: ATARAX 25 MG PO PRN (21:59)
[2016-09-13] MEDS: NAPROXEN 500 MG TABLET PO PRN (21:59)
[2016-09-14] MEDS: ALBUTEROL FS 2.5 MG/3 ML VIAL.NEB NEB SCH ×4 (00:34→19:33)
[2016-09-14] MEDS: IPRATROPIUM NEB FS 0.5 MG/2.5 ML AMPUL.NEB IH SCH ×4 (00:34→19:33)
[2016-09-14] MEDS: PANTOPRAZOLE 40 MG TABLET.DR PO SCH (05:46)
[2016-09-14] MEDS: BLOOD SUGAR DIAGNOSTIC 1 EACH STRIP VI SCH ×4 (06:37→21:31)
[2016-09-14] MEDS: INSULIN LISPRO/ASPART 100 UNIT/ML CARTRIDGE SQ PRN ×2 (06:38→21:32)
[2016-09-14 07:46] VITALS: BP 117/87
[2016-09-14] MEDS: ACETYLCYSTEINE 10% SOLN 400 MG/4 ML VIAL IH SCH ×2 (07:56→19:33)
[2016-09-14] MEDS: GUAIFENESIN/D-METHORPHAN HB 5 ML UDC PO PRN (08:03)
[2016-09-14] MEDS: SERTRALINE HCL 25 MG TABLET PO SCH (08:03)
[2016-09-14] MEDS: PROSOURCE / PROSTAT (PYXIS) 30 ML UDC PO SCH ×3 (08:03→17:37)
[2016-09-14] MEDS: ATARAX 25 MG PO PRN (08:03)
[2016-09-14] MEDS: VIT B CMPLX 3/FA/VIT C/BIOTIN 1 TAB TABLET PO SCH (08:03)
[2016-09-14] MEDS: POLYVINYL ALCOHOL 15 ML BOTTLE EACHEYE SCH ×4 (08:03→20:56)
[2016-09-14] MEDS: DOCUSATE SODIUM 100 MG CAPSULE PO SCH (08:03)
[2016-09-14] MEDS: ASCORBIC ACID 500 MG TABLET PO SCH (08:03)
[2016-09-14] MEDS: NAPROXEN 500 MG TABLET PO PRN (08:03)
[2016-09-14] MEDS: SITAGLIPTIN PHOSPHATE 25 MG TABLET PO SCH (08:03)
[2016-09-14] MEDS: HEPARIN SODIUM, PORCINE 5000 UNITS/1 ML VIAL SQ SCH ×2 (08:04→20:56)
[2016-09-14] MEDS: MINERAL OIL/PETROL OINT 396 GM JAR TP SCH ×2 (08:05→20:56)
[2016-09-14] MEDS: ZINC OXIDE 56.7 GM TUBE TP SCH ×2 (08:15→20:57)
[2016-09-14] MEDS: HYDROGEN PEROXIDE 480 ML BOTTLE TP SCH ×2 (08:15→20:57)
[2016-09-14] MEDS: BUDESONIDE RESPULE INH 0.5 MG/2 ML AMPUL.NEB IH SCH ×2 (08:20→20:04)
--- NOTE | 2016-09-14 14:34 | NUR ---
Resident returned back from dialysis in stable condition. V/S 134/88, 97.5, 80, 18. R upper chest permacath with dressing intact, no bleeding noted.
[2016-09-14 20:03] VITALS: BP 133/89
[2016-09-14] MEDS: TEMAZEPAM 15 MG CAPSULE PO SCH (21:31)
[2016-09-14] MEDS: GABAPENTIN 100 MG CAPSULE PO SCH (21:31)
[2016-09-14] MEDS: MONTELUKAST SODIUM (10MG) 10 MG TABLET PO SCH (21:31)
[2016-09-15] MEDS: ALBUTEROL FS 2.5 MG/3 ML VIAL.NEB NEB SCH ×4 (01:17→19:33)
[2016-09-15] MEDS: IPRATROPIUM NEB FS 0.5 MG/2.5 ML AMPUL.NEB IH SCH ×4 (01:17→19:33)
[2016-09-15] MEDS: PANTOPRAZOLE 40 MG TABLET.DR PO SCH (05:22)
[2016-09-15] MEDS: INSULIN LISPRO/ASPART 100 UNIT/ML CARTRIDGE SQ PRN ×3 (06:45→21:21)
[2016-09-15] MEDS: BLOOD SUGAR DIAGNOSTIC 1 EACH STRIP VI SCH ×4 (06:45→21:20)
[2016-09-15 07:54] VITALS: BP 136/88
[2016-09-15] MEDS: ACETYLCYSTEINE 10% SOLN 400 MG/4 ML VIAL IH SCH ×2 (08:07→19:33)
[2016-09-15] MEDS: DOCUSATE SODIUM 100 MG CAPSULE PO SCH (08:16)
[2016-09-15] MEDS: VIT B CMPLX 3/FA/VIT C/BIOTIN 1 TAB TABLET PO SCH (08:16)
[2016-09-15] MEDS: SITAGLIPTIN PHOSPHATE 25 MG TABLET PO SCH (08:16)
[2016-09-15] MEDS: POLYVINYL ALCOHOL 15 ML BOTTLE EACHEYE SCH ×4 (08:16→21:19)
[2016-09-15] MEDS: PROSOURCE / PROSTAT (PYXIS) 30 ML UDC PO SCH ×3 (08:17→16:52)
[2016-09-15] MEDS: ASCORBIC ACID 500 MG TABLET PO SCH (08:17)
[2016-09-15] MEDS: SERTRALINE HCL 25 MG TABLET PO SCH (08:17)
[2016-09-15] MEDS: HEPARIN SODIUM, PORCINE 5000 UNITS/1 ML VIAL SQ SCH ×2 (08:18→21:19)
[2016-09-15] MEDS: ZINC OXIDE 56.7 GM TUBE TP SCH ×2 (08:18→21:20)
[2016-09-15] MEDS: MINERAL OIL/PETROL OINT 396 GM JAR TP SCH ×2 (08:18→21:19)
[2016-09-15] MEDS: ATARAX 25 MG PO PRN (08:20)
[2016-09-15] MEDS: BUDESONIDE RESPULE INH 0.5 MG/2 ML AMPUL.NEB IH SCH ×2 (09:00→20:38)
[2016-09-15] MEDS: HYDROGEN PEROXIDE 480 ML BOTTLE TP SCH ×2 (09:00→21:20)
[2016-09-15 20:05] VITALS: BP 129/80
[2016-09-15] MEDS: MONTELUKAST SODIUM (10MG) 10 MG TABLET PO SCH (21:20)
[2016-09-15] MEDS: GUAIFENESIN/D-METHORPHAN HB 5 ML UDC PO PRN (21:20)
[2016-09-15] MEDS: GABAPENTIN 100 MG CAPSULE PO SCH (21:20)
[2016-09-15] MEDS: TEMAZEPAM 15 MG CAPSULE PO SCH (21:20)
[2016-09-16] MEDS: ALBUTEROL FS 2.5 MG/3 ML VIAL.NEB NEB SCH ×4 (01:25→19:40)
[2016-09-16] MEDS: IPRATROPIUM NEB FS 0.5 MG/2.5 ML AMPUL.NEB IH SCH ×4 (01:25→19:40)
[2016-09-16] MEDS: PANTOPRAZOLE 40 MG TABLET.DR PO SCH (05:21)
[2016-09-16] MEDS: BLOOD SUGAR DIAGNOSTIC 1 EACH STRIP VI SCH ×4 (07:36→21:40)
[2016-09-16] MEDS: ACETYLCYSTEINE 10% SOLN 400 MG/4 ML VIAL IH SCH ×2 (07:39→19:40)
[2016-09-16] MEDS: SITAGLIPTIN PHOSPHATE 25 MG TABLET PO SCH (08:02)
[2016-09-16] MEDS: VIT B CMPLX 3/FA/VIT C/BIOTIN 1 TAB TABLET PO SCH (08:02)
[2016-09-16] MEDS: SERTRALINE HCL 25 MG TABLET PO SCH (08:02)
[2016-09-16] MEDS: ASCORBIC ACID 500 MG TABLET PO SCH (08:02)
[2016-09-16] MEDS: DOCUSATE SODIUM 100 MG CAPSULE PO SCH (08:02)
[2016-09-16] MEDS: POLYVINYL ALCOHOL 15 ML BOTTLE EACHEYE SCH ×4 (08:02→21:39)
[2016-09-16] MEDS: PROSOURCE / PROSTAT (PYXIS) 30 ML UDC PO SCH ×3 (08:02→17:07)
[2016-09-16 08:04] VITALS: BP 129/75
[2016-09-16] MEDS: MINERAL OIL/PETROL OINT 396 GM JAR TP SCH ×2 (08:04→21:39)
[2016-09-16] MEDS: HEPARIN SODIUM, PORCINE 5000 UNITS/1 ML VIAL SQ SCH ×2 (08:04→21:39)
[2016-09-16] MEDS: GUAIFENESIN/D-METHORPHAN HB 5 ML UDC PO PRN ×2 (08:05→19:14)
[2016-09-16] MEDS: ATARAX 25 MG PO PRN ×2 (08:05→19:14)
[2016-09-16] MEDS: NAPROXEN 500 MG TABLET PO PRN (08:05)
[2016-09-16] MEDS: BUDESONIDE RESPULE INH 0.5 MG/2 ML AMPUL.NEB IH SCH ×2 (08:09→19:40)
[2016-09-16] MEDS: HYDROGEN PEROXIDE 480 ML BOTTLE TP SCH ×2 (10:00→21:39)
[2016-09-16] MEDS: ZINC OXIDE 56.7 GM TUBE TP SCH ×2 (10:00→21:39)
--- NOTE | 2016-09-16 10:23 | NUR ---
Seen and examined by Dr. Helen Prieto, made aware that patient's trach size was changed last Friday to Shiley #6 XLT so he can speak using PMV with better clarity. Resident stated his family visited yesterday and he use his PMV. NNO given by Dr. Prieto.
[2016-09-16] MEDS: INSULIN LISPRO/ASPART 100 UNIT/ML CARTRIDGE SQ PRN (17:31)
--- NOTE | 2016-09-16 19:30 | NUR ---
RN NOTES Seen and examined by Radha Petty with NNO.
[2016-09-16 19:59] VITALS: BP 120/84
[2016-09-16] MEDS: GABAPENTIN 100 MG CAPSULE PO SCH (21:39)
[2016-09-16] MEDS: TEMAZEPAM 15 MG CAPSULE PO SCH (21:40)
[2016-09-16] MEDS: MONTELUKAST SODIUM (10MG) 10 MG TABLET PO SCH (21:40)
[2016-09-17] MEDS: IPRATROPIUM NEB FS 0.5 MG/2.5 ML AMPUL.NEB IH SCH ×4 (01:14→19:30)
[2016-09-17] MEDS: ALBUTEROL FS 2.5 MG/3 ML VIAL.NEB NEB SCH ×4 (01:14→19:30)
[2016-09-17] MEDS: PANTOPRAZOLE 40 MG TABLET.DR PO SCH (05:21)
[2016-09-17 07:42] VITALS: BP 122/81
[2016-09-17] MEDS: BLOOD SUGAR DIAGNOSTIC 1 EACH STRIP VI SCH ×4 (07:53→21:52)
[2016-09-17] MEDS: VIT B CMPLX 3/FA/VIT C/BIOTIN 1 TAB TABLET PO SCH (08:07)
[2016-09-17] MEDS: SERTRALINE HCL 25 MG TABLET PO SCH (08:07)
[2016-09-17] MEDS: SITAGLIPTIN PHOSPHATE 25 MG TABLET PO SCH (08:07)
[2016-09-17] MEDS: PROSOURCE / PROSTAT (PYXIS) 30 ML UDC PO SCH ×3 (08:07→17:13)
[2016-09-17] MEDS: DOCUSATE SODIUM 100 MG CAPSULE PO SCH (08:07)
[2016-09-17] MEDS: POLYVINYL ALCOHOL 15 ML BOTTLE EACHEYE SCH ×4 (08:07→21:51)
[2016-09-17] MEDS: ERGOCALCIFEROL (VITAMIN D 2) 50,000 UNIT CAPSULE PO SCH (08:07)
[2016-09-17] MEDS: ASCORBIC ACID 500 MG TABLET PO SCH (08:07)
[2016-09-17] MEDS: HEPARIN SODIUM, PORCINE 5000 UNITS/1 ML VIAL SQ SCH ×2 (08:08→21:52)
[2016-09-17] MEDS: GUAIFENESIN/D-METHORPHAN HB 5 ML UDC PO PRN ×3 (08:10→21:53)
[2016-09-17] MEDS: NAPROXEN 500 MG TABLET PO PRN (08:10)
[2016-09-17] MEDS: ATARAX 25 MG PO PRN ×2 (08:10→14:55)
--- NOTE | 2016-09-17 09:00 | NUR ---
MUCOMYST HELD DUE TO ORDER CLARIFICATION. CHARGE NURSE(RUDOLPH) AWARE.
[2016-09-17] MEDS: BUDESONIDE RESPULE INH 0.5 MG/2 ML AMPUL.NEB IH SCH ×2 (09:12→21:25)
--- NOTE | 2016-09-17 09:58 | NUR ---
FERNANDO called the resident's brother to follow up if he was able to call the social security office to request a new form be sent to the resident authorizing him to be a payee. He stated that no he has not been able to and the form should have arrived already. FERNANDO informed him that she and the resident called the social security office together but resident could not verify his information and had a difficult time speaking. He stated he will call the social security office and request that a new form be sent to the hospital since it did not arrive.
--- NOTE | 2016-09-17 10:09 | NUR ---
Seen and examined by Dr. Gardner, NNO given.
[2016-09-17] MEDS: ZINC OXIDE 56.7 GM TUBE TP SCH ×2 (14:30→21:52)
[2016-09-17] MEDS: HYDROGEN PEROXIDE 480 ML BOTTLE TP SCH ×2 (14:30→21:52)
[2016-09-17] MEDS: MINERAL OIL/PETROL OINT 396 GM JAR TP SCH ×2 (14:30→21:52)
[2016-09-17 19:52] VITALS: BP 144/97
[2016-09-17] MEDS: GABAPENTIN 100 MG CAPSULE PO SCH (21:52)
[2016-09-17] MEDS: MONTELUKAST SODIUM (10MG) 10 MG TABLET PO SCH (21:52)
[2016-09-17] MEDS: TEMAZEPAM 15 MG CAPSULE PO SCH (21:52)
[2016-09-18] MEDS: ALBUTEROL FS 2.5 MG/3 ML VIAL.NEB NEB SCH ×4 (01:54→20:01)
[2016-09-18] MEDS: IPRATROPIUM NEB FS 0.5 MG/2.5 ML AMPUL.NEB IH SCH ×4 (01:54→20:01)
[2016-09-18] MEDS: PANTOPRAZOLE 40 MG TABLET.DR PO SCH (05:18)
[2016-09-18] MEDS: BUDESONIDE RESPULE INH 0.5 MG/2 ML AMPUL.NEB IH SCH ×2 (08:10→20:01)
[2016-09-18] MEDS: BLOOD SUGAR DIAGNOSTIC 1 EACH STRIP VI SCH ×4 (08:10→21:11)
[2016-09-18] MEDS: DOCUSATE SODIUM 100 MG CAPSULE PO SCH (08:11)
[2016-09-18] MEDS: SERTRALINE HCL 25 MG TABLET PO SCH (08:11)
[2016-09-18] MEDS: HEPARIN SODIUM, PORCINE 5000 UNITS/1 ML VIAL SQ SCH ×2 (08:11→20:38)
[2016-09-18] MEDS: PROSOURCE / PROSTAT (PYXIS) 30 ML UDC PO SCH ×3 (08:11→16:37)
[2016-09-18] MEDS: SITAGLIPTIN PHOSPHATE 25 MG TABLET PO SCH (08:11)
[2016-09-18] MEDS: VIT B CMPLX 3/FA/VIT C/BIOTIN 1 TAB TABLET PO SCH (08:11)
[2016-09-18] MEDS: POLYVINYL ALCOHOL 15 ML BOTTLE EACHEYE SCH ×4 (08:11→20:38)
[2016-09-18] MEDS: ASCORBIC ACID 500 MG TABLET PO SCH (08:11)
[2016-09-18] MEDS: MINERAL OIL/PETROL OINT 396 GM JAR TP SCH ×2 (08:13→20:38)
[2016-09-18] MEDS: INSULIN LISPRO/ASPART 100 UNIT/ML CARTRIDGE SQ PRN ×4 (08:13→21:11)
[2016-09-18 08:27] VITALS: BP 139/71
[2016-09-18] MEDS: HYDROGEN PEROXIDE 480 ML BOTTLE TP SCH ×2 (09:00→20:38)
[2016-09-18] MEDS: ZINC OXIDE 56.7 GM TUBE TP SCH ×2 (09:00→20:38)
[2016-09-18] MEDS: NAPROXEN 500 MG TABLET PO PRN (20:37)
[2016-09-18] MEDS: ATARAX 25 MG PO PRN (20:37)
[2016-09-18] MEDS: GUAIFENESIN/D-METHORPHAN HB 5 ML UDC PO PRN (20:37)
[2016-09-18] MEDS: GABAPENTIN 100 MG CAPSULE PO SCH (21:11)
[2016-09-18] MEDS: MONTELUKAST SODIUM (10MG) 10 MG TABLET PO SCH (21:11)
[2016-09-18] MEDS: TEMAZEPAM 15 MG CAPSULE PO SCH (21:11)
[2016-09-18 23:48] VITALS: BP 165/96
[2016-09-19] MEDS: IPRATROPIUM NEB FS 0.5 MG/2.5 ML AMPUL.NEB IH SCH ×4 (01:37→19:54)
[2016-09-19] MEDS: ALBUTEROL FS 2.5 MG/3 ML VIAL.NEB NEB SCH ×4 (01:37→19:54)
[2016-09-19] MEDS: PANTOPRAZOLE 40 MG TABLET.DR PO SCH (05:17)
[2016-09-19] MEDS: INSULIN LISPRO/ASPART 100 UNIT/ML CARTRIDGE SQ PRN ×2 (06:44→21:45)
[2016-09-19] MEDS: BLOOD SUGAR DIAGNOSTIC 1 EACH STRIP VI SCH ×4 (06:44→21:44)
[2016-09-19 07:47] VITALS: BP 120/87
[2016-09-19] MEDS: SITAGLIPTIN PHOSPHATE 25 MG TABLET PO SCH (08:33)
[2016-09-19] MEDS: PROSOURCE / PROSTAT (PYXIS) 30 ML UDC PO SCH ×3 (08:33→17:00)
[2016-09-19] MEDS: SERTRALINE HCL 25 MG TABLET PO SCH (08:33)
[2016-09-19] MEDS: DOCUSATE SODIUM 100 MG CAPSULE PO SCH (08:33)
[2016-09-19] MEDS: ASCORBIC ACID 500 MG TABLET PO SCH (08:33)
[2016-09-19] MEDS: POLYVINYL ALCOHOL 15 ML BOTTLE EACHEYE SCH ×4 (08:33→20:46)
[2016-09-19] MEDS: VIT B CMPLX 3/FA/VIT C/BIOTIN 1 TAB TABLET PO SCH (08:33)
[2016-09-19] MEDS: HEPARIN SODIUM, PORCINE 5000 UNITS/1 ML VIAL SQ SCH ×2 (08:34→20:47)
[2016-09-19] MEDS: GUAIFENESIN/D-METHORPHAN HB 5 ML UDC PO PRN ×2 (08:35→20:20)
[2016-09-19] MEDS: NAPROXEN 500 MG TABLET PO PRN ×2 (08:35→20:20)
[2016-09-19] MEDS: ATARAX 25 MG PO PRN ×2 (08:35→20:20)
[2016-09-19] MEDS: MINERAL OIL/PETROL OINT 396 GM JAR TP SCH ×2 (08:35→20:47)
[2016-09-19] MEDS: BUDESONIDE RESPULE INH 0.5 MG/2 ML AMPUL.NEB IH SCH ×2 (09:00→20:01)
[2016-09-19] MEDS: ZINC OXIDE 56.7 GM TUBE TP SCH ×2 (09:15→20:47)
[2016-09-19] MEDS: HYDROGEN PEROXIDE 480 ML BOTTLE TP SCH ×2 (09:15→20:47)
--- NOTE | 2016-09-19 15:40 | NUR ---
Seen and examined by Radha AMBROSE with no new order.
[2016-09-19 19:50] VITALS: BP 151/78
[2016-09-19] MEDS: GABAPENTIN 100 MG CAPSULE PO SCH (21:44)
[2016-09-19] MEDS: TEMAZEPAM 15 MG CAPSULE PO SCH (21:44)
[2016-09-19] MEDS: MONTELUKAST SODIUM (10MG) 10 MG TABLET PO SCH (21:44)
[2016-09-20] MEDS: IPRATROPIUM NEB FS 0.5 MG/2.5 ML AMPUL.NEB IH SCH ×4 (01:56→19:30)
[2016-09-20] MEDS: ALBUTEROL FS 2.5 MG/3 ML VIAL.NEB NEB SCH ×4 (01:56→19:30)
[2016-09-20] MEDS: PANTOPRAZOLE 40 MG TABLET.DR PO SCH (05:26)
[2016-09-20] MEDS: INSULIN LISPRO/ASPART 100 UNIT/ML CARTRIDGE SQ PRN ×4 (06:42→21:24)
[2016-09-20] MEDS: BLOOD SUGAR DIAGNOSTIC 1 EACH STRIP VI SCH ×4 (06:42→21:24)
[2016-09-20] MEDS: PROSOURCE / PROSTAT (PYXIS) 30 ML UDC PO SCH ×3 (08:05→17:01)
[2016-09-20] MEDS: POLYVINYL ALCOHOL 15 ML BOTTLE EACHEYE SCH ×4 (08:05→21:23)
[2016-09-20] MEDS: DOCUSATE SODIUM 100 MG CAPSULE PO SCH (08:05)
[2016-09-20] MEDS: ASCORBIC ACID 500 MG TABLET PO SCH (08:05)
[2016-09-20] MEDS: SERTRALINE HCL 25 MG TABLET PO SCH (08:05)
[2016-09-20] MEDS: SITAGLIPTIN PHOSPHATE 25 MG TABLET PO SCH (08:05)
[2016-09-20] MEDS: VIT B CMPLX 3/FA/VIT C/BIOTIN 1 TAB TABLET PO SCH (08:05)
[2016-09-20] MEDS: HEPARIN SODIUM, PORCINE 5000 UNITS/1 ML VIAL SQ SCH ×2 (08:06→21:23)
[2016-09-20] MEDS: MINERAL OIL/PETROL OINT 396 GM JAR TP SCH ×2 (08:06→21:23)
[2016-09-20] MEDS: BUDESONIDE RESPULE INH 0.5 MG/2 ML AMPUL.NEB IH SCH ×2 (08:07→21:59)
[2016-09-20] MEDS: ZINC OXIDE 56.7 GM TUBE TP SCH ×2 (09:00→21:24)
[2016-09-20] MEDS: HYDROGEN PEROXIDE 480 ML BOTTLE TP SCH ×2 (12:42→21:23)
[2016-09-20 19:27] VITALS: BP 140/92
[2016-09-20] MEDS: ZINC OXIDE 30 GM TUBE TP SCH (21:23)
[2016-09-20] MEDS: NAPROXEN 500 MG TABLET PO PRN (21:24)
[2016-09-20] MEDS: GABAPENTIN 100 MG CAPSULE PO SCH (21:24)
[2016-09-20] MEDS: MONTELUKAST SODIUM (10MG) 10 MG TABLET PO SCH (21:24)
[2016-09-20] MEDS: ATARAX 25 MG PO PRN (21:24)
[2016-09-20] MEDS: GUAIFENESIN/D-METHORPHAN HB 5 ML UDC PO PRN (21:24)
[2016-09-20] MEDS: TEMAZEPAM 15 MG CAPSULE PO SCH (21:24)
[2016-09-21] MEDS: IPRATROPIUM NEB FS 0.5 MG/2.5 ML AMPUL.NEB IH SCH ×4 (00:54→19:36)
[2016-09-21] MEDS: ALBUTEROL FS 2.5 MG/3 ML VIAL.NEB NEB SCH ×4 (00:54→19:36)
[2016-09-21] MEDS: PANTOPRAZOLE 40 MG TABLET.DR PO SCH (05:34)
[2016-09-21] MEDS: BLOOD SUGAR DIAGNOSTIC 1 EACH STRIP VI SCH ×4 (06:39→21:32)
[2016-09-21] MEDS: INSULIN LISPRO/ASPART 100 UNIT/ML CARTRIDGE SQ PRN ×3 (06:40→21:33)
[2016-09-21 07:50] VITALS: BP 124/83
[2016-09-21] MEDS: POLYVINYL ALCOHOL 15 ML BOTTLE EACHEYE SCH ×4 (08:06→20:45)
[2016-09-21] MEDS: PROSOURCE / PROSTAT (PYXIS) 30 ML UDC PO SCH ×3 (08:06→16:49)
[2016-09-21] MEDS: ASCORBIC ACID 500 MG TABLET PO SCH (08:06)
[2016-09-21] MEDS: DOCUSATE SODIUM 100 MG CAPSULE PO SCH (08:06)
[2016-09-21] MEDS: VIT B CMPLX 3/FA/VIT C/BIOTIN 1 TAB TABLET PO SCH (08:06)
[2016-09-21] MEDS: SITAGLIPTIN PHOSPHATE 25 MG TABLET PO SCH (08:06)
[2016-09-21] MEDS: SERTRALINE HCL 25 MG TABLET PO SCH (08:06)
[2016-09-21] MEDS: MINERAL OIL/PETROL OINT 396 GM JAR TP SCH ×2 (08:07→20:46)
[2016-09-21] MEDS: HEPARIN SODIUM, PORCINE 5000 UNITS/1 ML VIAL SQ SCH ×3 (08:07→20:46)
[2016-09-21] MEDS: GUAIFENESIN/D-METHORPHAN HB 5 ML UDC PO PRN ×2 (08:22→15:37)
[2016-09-21] MEDS: BUDESONIDE RESPULE INH 0.5 MG/2 ML AMPUL.NEB IH SCH ×2 (08:56→20:42)
--- NOTE | 2016-09-21 14:23 | NUR ---
Resident left and came back after dialysis. No complications noted.
[2016-09-21] MEDS: ZINC OXIDE 30 GM TUBE TP SCH ×3 (18:04→20:47)
[2016-09-21] MEDS: ZINC OXIDE 56.7 GM TUBE TP SCH ×2 (18:04→20:48)
[2016-09-21] MEDS: HYDROGEN PEROXIDE 480 ML BOTTLE TP SCH ×2 (18:04→20:46)
[2016-09-21 19:37] VITALS: BP 135/88
[2016-09-21] MEDS: GABAPENTIN 100 MG CAPSULE PO SCH (21:32)
[2016-09-21] MEDS: TEMAZEPAM 15 MG CAPSULE PO SCH (21:32)
[2016-09-21] MEDS: NAPROXEN 500 MG TABLET PO PRN (21:32)
[2016-09-21] MEDS: ATARAX 25 MG PO PRN (21:32)
[2016-09-21] MEDS: MONTELUKAST SODIUM (10MG) 10 MG TABLET PO SCH (21:32)
[2016-09-22] MEDS: IPRATROPIUM NEB FS 0.5 MG/2.5 ML AMPUL.NEB IH SCH ×4 (01:28→19:33)
[2016-09-22] MEDS: ALBUTEROL FS 2.5 MG/3 ML VIAL.NEB NEB SCH ×4 (01:28→19:33)
[2016-09-22] MEDS: PANTOPRAZOLE 40 MG TABLET.DR PO SCH (05:31)
[2016-09-22] MEDS: BLOOD SUGAR DIAGNOSTIC 1 EACH STRIP VI SCH ×4 (06:56→21:24)
[2016-09-22 08:00] VITALS: BP 138/92
[2016-09-22] MEDS: BUDESONIDE RESPULE INH 0.5 MG/2 ML AMPUL.NEB IH SCH ×2 (08:01→21:00)
[2016-09-22] MEDS: SERTRALINE HCL 25 MG TABLET PO SCH (08:26)
[2016-09-22] MEDS: POLYVINYL ALCOHOL 15 ML BOTTLE EACHEYE SCH ×4 (08:26→21:28)
[2016-09-22] MEDS: ASCORBIC ACID 500 MG TABLET PO SCH (08:26)
[2016-09-22] MEDS: DOCUSATE SODIUM 100 MG CAPSULE PO SCH (08:26)
[2016-09-22] MEDS: SITAGLIPTIN PHOSPHATE 25 MG TABLET PO SCH (08:26)
[2016-09-22] MEDS: VIT B CMPLX 3/FA/VIT C/BIOTIN 1 TAB TABLET PO SCH (08:26)
[2016-09-22] MEDS: PROSOURCE / PROSTAT (PYXIS) 30 ML UDC PO SCH ×3 (08:26→17:57)
[2016-09-22] MEDS: MINERAL OIL/PETROL OINT 396 GM JAR TP SCH ×2 (08:29→21:16)
[2016-09-22] MEDS: HEPARIN SODIUM, PORCINE 5000 UNITS/1 ML VIAL SQ SCH ×2 (08:29→21:16)
[2016-09-22] MEDS: ZINC OXIDE 56.7 GM TUBE TP SCH ×2 (09:00→21:17)
[2016-09-22] MEDS: HYDROGEN PEROXIDE 480 ML BOTTLE TP SCH ×2 (09:00→21:17)
[2016-09-22] MEDS: ZINC OXIDE 30 GM TUBE TP SCH ×4 (09:00→21:17)
[2016-09-22] MEDS: INSULIN LISPRO/ASPART 100 UNIT/ML CARTRIDGE SQ PRN ×3 (14:45→21:40)
[2016-09-22 20:01] VITALS: BP 133/74
[2016-09-22] MEDS: GUAIFENESIN/D-METHORPHAN HB 5 ML UDC PO PRN (21:16)
[2016-09-22] MEDS: MONTELUKAST SODIUM (10MG) 10 MG TABLET PO SCH (21:18)
[2016-09-22] MEDS: GABAPENTIN 100 MG CAPSULE PO SCH (21:18)
[2016-09-22] MEDS: TEMAZEPAM 15 MG CAPSULE PO SCH (21:18)
[2016-09-22] MEDS: ATARAX 25 MG PO PRN (21:19)
[2016-09-23] MEDS: ALBUTEROL FS 2.5 MG/3 ML VIAL.NEB NEB SCH ×4 (01:23→19:31)
[2016-09-23] MEDS: IPRATROPIUM NEB FS 0.5 MG/2.5 ML AMPUL.NEB IH SCH ×4 (01:23→19:31)
[2016-09-23] MEDS: PANTOPRAZOLE 40 MG TABLET.DR PO SCH (06:11)
[2016-09-23] MEDS: BLOOD SUGAR DIAGNOSTIC 1 EACH STRIP VI SCH ×3 (07:30→17:36)
--- NOTE | 2016-09-23 07:45 | NUR ---
Pt's blood sugar 47. Pt refused D50, explained risks and benefits but still refused. He is awake and responsive, no change in mental status. Pt eating breakfast.
[2016-09-23] MEDS: BUDESONIDE RESPULE INH 0.5 MG/2 ML AMPUL.NEB IH SCH ×2 (08:10→21:00)
[2016-09-23] MEDS: PROSOURCE / PROSTAT (PYXIS) 30 ML UDC PO SCH ×3 (08:45→17:36)
[2016-09-23] MEDS: ASCORBIC ACID 500 MG TABLET PO SCH (08:45)
[2016-09-23] MEDS: SITAGLIPTIN PHOSPHATE 25 MG TABLET PO SCH (08:45)
[2016-09-23] MEDS: POLYVINYL ALCOHOL 15 ML BOTTLE EACHEYE SCH ×4 (08:45→21:23)
[2016-09-23] MEDS: DOCUSATE SODIUM 100 MG CAPSULE PO SCH (08:45)
[2016-09-23] MEDS: VIT B CMPLX 3/FA/VIT C/BIOTIN 1 TAB TABLET PO SCH (08:45)
[2016-09-23] MEDS: SERTRALINE HCL 25 MG TABLET PO SCH (08:45)
[2016-09-23] MEDS: HEPARIN SODIUM, PORCINE 5000 UNITS/1 ML VIAL SQ SCH ×2 (08:46→21:18)
[2016-09-23] MEDS: MINERAL OIL/PETROL OINT 396 GM JAR TP SCH ×2 (09:00→21:18)
[2016-09-23] MEDS: HYDROGEN PEROXIDE 480 ML BOTTLE TP SCH ×2 (09:00→21:18)
[2016-09-23] MEDS: ZINC OXIDE 30 GM TUBE TP SCH ×4 (09:00→21:18)
[2016-09-23] MEDS: ZINC OXIDE 56.7 GM TUBE TP SCH ×2 (09:00→21:18)
[2016-09-23] MEDS ORDERED: IV SET PRIMARY 1 EA INFUS.SET MC ONE (09:15)
[2016-09-23] MEDS ORDERED: IV NS 0.9% 500 ML IV ONE (09:15)
[2016-09-23] MEDS ORDERED: IV NS 0.9% 1,000 ML ONE (09:15)
--- NOTE | 2016-09-23 09:51 | NUR ---
Pt's blood sugar 179.
--- NOTE | 2016-09-23 10:31 | NUR ---
Spoke to the resident's brother Aly Aaron to follow up about social security check and letter. SW informed him that resident has not received his monthly check and that payee process is perhaps incomplete since resident never received the document that he was supposed to sign off on. Brother also stated that he has not heart back and they notified him that it would be after 10 days of applying. He stated that if he has time, he will go down to the social security office today to inquire. He will keep SW notified as to any updates. Resident informed.
--- NOTE | 2016-09-23 12:15 | NUR ---
Seen by REHABILITATOR Rdaha Petty. Notified her that pt's blood sugar was 47 this morning. She reviewed pt's blood sugar medications and ordered to do blood sugar checks with Humalog insulin coverage per sliding scale before meals only and not at bedtime. She said that since the pt is a dialysis pt, the Humalog insulin might be in the body for a long time that is why the blood sugar is low, and since pt does not eat anything at bedtime, there is no need to give him any coverage at bedtime.
[2016-09-23] MEDS: INSULIN LISPRO/ASPART 100 UNIT/ML CARTRIDGE SQ PRN ×3 (13:22→17:37)
[2016-09-23] MEDS ORDERED: IV SET PRIMARY PUMP SET 1 EA INFUS.SET MC ONE (15:04)
--- NOTE | 2016-09-23 15:30 | NUR ---
Received a call from resident's brother Aly Aaron who stated that he looked through his mail and received the form from the [facility] office. He stated that he is now the payee of the resident's Social Security checks. He also asked the SW to obtain a list of the items that the resident needs and SW created a list with the resident and emailed the list to his brother, Aly Aaron. Resident also complained about his toes again stating that previous dye line operator messed them up and they are hurting. Resident also concerned with how big his toes are but charge nurse examined resident and stated no fluid buildup. Charge nurse noticed a callous like growth on his left big toe. SW will send podiatry consult so dye line operator can examine resident's' toe. SW informed CNO that resident wants to speak to him regarding his unhappiness with previous dye line operator and insists on the need to take legal action. SW informed him that it might be a few days before CNO can come and talk to him and resident acknowledged.
--- NOTE | 2016-09-23 15:53 | NUR ---
FERNANDO faxed office copy selector referral to Neel at the wound center (tel: [phone] ) for podiatry consult. FERNANDO informed by charge nurse that resident has a callous like growth on his left big toe.
--- NOTE | 2016-09-23 18:39 | NUR ---
Clarified blood sugar check order with ARNOL Petty since pharmacist Ingrid was concerned about not checking blood sugar at bedtime. ARNOL Petty said to just observe AM sugars for now. No new order to resume checking blood sugar at bedtime.
[2016-09-23 19:55] VITALS: BP 134/90
[2016-09-23] MEDS: GABAPENTIN 100 MG CAPSULE PO SCH (21:18)
[2016-09-23] MEDS: TEMAZEPAM 15 MG CAPSULE PO SCH (21:19)
[2016-09-23] MEDS: MONTELUKAST SODIUM (10MG) 10 MG TABLET PO SCH (21:19)
[2016-09-24] MEDS: ALBUTEROL FS 2.5 MG/3 ML VIAL.NEB NEB SCH ×4 (01:55→20:17)
[2016-09-24] MEDS: IPRATROPIUM NEB FS 0.5 MG/2.5 ML AMPUL.NEB IH SCH ×4 (01:55→20:17)
[2016-09-24] MEDS: PANTOPRAZOLE 40 MG TABLET.DR PO SCH (05:39)
[2016-09-24] MEDS: BLOOD SUGAR DIAGNOSTIC 1 EACH STRIP VI SCH ×3 (07:45→17:38)
[2016-09-24] MEDS: INSULIN LISPRO/ASPART 100 UNIT/ML CARTRIDGE SQ PRN ×2 (07:46→17:39)
[2016-09-24] MEDS: VIT B CMPLX 3/FA/VIT C/BIOTIN 1 TAB TABLET PO SCH (08:07)
[2016-09-24] MEDS: DOCUSATE SODIUM 100 MG CAPSULE PO SCH (08:07)
[2016-09-24] MEDS: ERGOCALCIFEROL (VITAMIN D 2) 50,000 UNIT CAPSULE PO SCH (08:07)
[2016-09-24] MEDS: POLYVINYL ALCOHOL 15 ML BOTTLE EACHEYE SCH ×4 (08:07→20:43)
[2016-09-24] MEDS: SITAGLIPTIN PHOSPHATE 25 MG TABLET PO SCH (08:07)
[2016-09-24] MEDS: BUDESONIDE RESPULE INH 0.5 MG/2 ML AMPUL.NEB IH SCH ×2 (08:07→20:17)
[2016-09-24] MEDS: PROSOURCE / PROSTAT (PYXIS) 30 ML UDC PO SCH ×3 (08:08→17:38)
[2016-09-24] MEDS: SERTRALINE HCL 25 MG TABLET PO SCH (08:08)
[2016-09-24] MEDS: HEPARIN SODIUM, PORCINE 5000 UNITS/1 ML VIAL SQ SCH ×2 (08:08→20:43)
[2016-09-24] MEDS: ASCORBIC ACID 500 MG TABLET PO SCH (08:08)
[2016-09-24] MEDS: MINERAL OIL/PETROL OINT 396 GM JAR TP SCH ×2 (08:09→20:43)
[2016-09-24 08:20] VITALS: BP 125/89
[2016-09-24] MEDS: ZINC OXIDE 56.7 GM TUBE TP SCH ×2 (09:00→20:44)
[2016-09-24] MEDS: ZINC OXIDE 30 GM TUBE TP SCH ×4 (09:00→20:44)
[2016-09-24] MEDS: HYDROGEN PEROXIDE 480 ML BOTTLE TP SCH ×2 (09:00→20:43)
[2016-09-24 19:45] VITALS: BP 136/91
[2016-09-24] MEDS: GUAIFENESIN/D-METHORPHAN HB 5 ML UDC PO PRN (20:45)
[2016-09-24] MEDS: ATARAX 25 MG PO PRN (20:46)
[2016-09-24] MEDS: TEMAZEPAM 15 MG CAPSULE PO SCH (22:53)
[2016-09-24] MEDS: MONTELUKAST SODIUM (10MG) 10 MG TABLET PO SCH (22:53)
[2016-09-24] MEDS: GABAPENTIN 100 MG CAPSULE PO SCH (22:53)
[2016-09-25] MEDS: IPRATROPIUM NEB FS 0.5 MG/2.5 ML AMPUL.NEB IH SCH ×4 (02:29→20:15)
[2016-09-25] MEDS: ALBUTEROL FS 2.5 MG/3 ML VIAL.NEB NEB SCH ×4 (02:29→20:15)
[2016-09-25] MEDS: PANTOPRAZOLE 40 MG TABLET.DR PO SCH (05:48)
[2016-09-25] MEDS: BLOOD SUGAR DIAGNOSTIC 1 EACH STRIP VI SCH ×3 (07:21→17:45)
[2016-09-25 08:06] VITALS: BP 139/75
[2016-09-25] MEDS: BUDESONIDE RESPULE INH 0.5 MG/2 ML AMPUL.NEB IH SCH ×2 (08:08→20:45)
[2016-09-25] MEDS: ASCORBIC ACID 500 MG TABLET PO SCH (08:17)
[2016-09-25] MEDS: POLYVINYL ALCOHOL 15 ML BOTTLE EACHEYE SCH ×4 (08:17→21:42)
[2016-09-25] MEDS: SITAGLIPTIN PHOSPHATE 25 MG TABLET PO SCH (08:17)
[2016-09-25] MEDS: SERTRALINE HCL 25 MG TABLET PO SCH (08:17)
[2016-09-25] MEDS: PROSOURCE / PROSTAT (PYXIS) 30 ML UDC PO SCH ×3 (08:17→17:02)
[2016-09-25] MEDS: DOCUSATE SODIUM 100 MG CAPSULE PO SCH (08:17)
[2016-09-25] MEDS: VIT B CMPLX 3/FA/VIT C/BIOTIN 1 TAB TABLET PO SCH (08:17)
[2016-09-25] MEDS: ZINC OXIDE 30 GM TUBE TP SCH ×4 (08:18→21:42)
[2016-09-25] MEDS: MINERAL OIL/PETROL OINT 396 GM JAR TP SCH ×2 (08:18→21:42)
[2016-09-25] MEDS: HEPARIN SODIUM, PORCINE 5000 UNITS/1 ML VIAL SQ SCH ×2 (08:18→21:42)
[2016-09-25] MEDS: HYDROGEN PEROXIDE 480 ML BOTTLE TP SCH ×2 (08:18→21:42)
[2016-09-25] MEDS: ZINC OXIDE 56.7 GM TUBE TP SCH ×2 (08:19→21:42)
[2016-09-25] MEDS: GUAIFENESIN/D-METHORPHAN HB 5 ML UDC PO PRN ×2 (09:00→21:44)
[2016-09-25] MEDS: NAPROXEN 500 MG TABLET PO PRN ×2 (09:00→22:19)
[2016-09-25] MEDS: INSULIN LISPRO/ASPART 100 UNIT/ML CARTRIDGE SQ PRN ×2 (11:51→21:45)
[2016-09-25 20:09] VITALS: BP 133/78
[2016-09-25] MEDS: GABAPENTIN 100 MG CAPSULE PO SCH (21:42)
[2016-09-25] MEDS: TEMAZEPAM 15 MG CAPSULE PO SCH (21:43)
[2016-09-25] MEDS: MONTELUKAST SODIUM (10MG) 10 MG TABLET PO SCH (21:43)
[2016-09-25] MEDS: ATARAX 25 MG PO PRN (22:19)
[2016-09-26] MEDS: IPRATROPIUM NEB FS 0.5 MG/2.5 ML AMPUL.NEB IH SCH ×4 (01:38→20:01)
[2016-09-26] MEDS: ALBUTEROL FS 2.5 MG/3 ML VIAL.NEB NEB SCH ×4 (01:38→20:01)
[2016-09-26] MEDS: PANTOPRAZOLE 40 MG TABLET.DR PO SCH (05:46)
[2016-09-26] MEDS: BLOOD SUGAR DIAGNOSTIC 1 EACH STRIP VI SCH ×3 (06:54→16:45)
[2016-09-26] MEDS: INSULIN LISPRO/ASPART 100 UNIT/ML CARTRIDGE SQ PRN ×2 (06:55→16:46)
[2016-09-26] MEDS: BUDESONIDE RESPULE INH 0.5 MG/2 ML AMPUL.NEB IH SCH ×2 (07:45→20:31)
[2016-09-26 08:00] VITALS: BP 130/94
--- NOTE | 2016-09-26 08:50 | NUR ---
Pt noted with gluteal crease open skin. Received order to apply zinc oxide and Mepilex on the area. Pt aware of it.
[2016-09-26] MEDS: POLYVINYL ALCOHOL 15 ML BOTTLE EACHEYE SCH ×4 (09:00→21:05)
[2016-09-26] MEDS: ZINC OXIDE 30 GM TUBE TP SCH ×6 (09:00→21:06)
[2016-09-26] MEDS: VIT B CMPLX 3/FA/VIT C/BIOTIN 1 TAB TABLET PO SCH (09:29)
[2016-09-26] MEDS: SITAGLIPTIN PHOSPHATE 25 MG TABLET PO SCH (09:29)
[2016-09-26] MEDS: SERTRALINE HCL 25 MG TABLET PO SCH (09:29)
[2016-09-26] MEDS: DOCUSATE SODIUM 100 MG CAPSULE PO SCH (09:29)
[2016-09-26] MEDS: ASCORBIC ACID 500 MG TABLET PO SCH (09:29)
[2016-09-26] MEDS: PROSOURCE / PROSTAT (PYXIS) 30 ML UDC PO SCH ×3 (09:29→16:45)
[2016-09-26] MEDS: HEPARIN SODIUM, PORCINE 5000 UNITS/1 ML VIAL SQ SCH ×2 (09:30→21:06)
[2016-09-26] MEDS: MINERAL OIL/PETROL OINT 396 GM JAR TP SCH ×2 (09:30→21:06)
[2016-09-26] MEDS: HYDROGEN PEROXIDE 480 ML BOTTLE TP SCH ×2 (09:30→21:06)
[2016-09-26] MEDS: ZINC OXIDE 56.7 GM TUBE TP SCH ×2 (09:30→21:06)
[2016-09-26] MEDS ORDERED: ZINC OXIDE 30 GM TUBE TP PRN (13:00)
[2016-09-26 19:30] VITALS: BP 127/94
[2016-09-26] MEDS: MONTELUKAST SODIUM (10MG) 10 MG TABLET PO SCH (21:06)
[2016-09-26] MEDS: TEMAZEPAM 15 MG CAPSULE PO SCH (21:06)
[2016-09-26] MEDS: GABAPENTIN 100 MG CAPSULE PO SCH (21:06)
[2016-09-26] MEDS: GUAIFENESIN/D-METHORPHAN HB 5 ML UDC PO PRN (21:07)
[2016-09-26] MEDS: NAPROXEN 500 MG TABLET PO PRN (21:07)
[2016-09-27] MEDS: ALBUTEROL FS 2.5 MG/3 ML VIAL.NEB NEB SCH ×4 (00:55→19:54)
[2016-09-27] MEDS: IPRATROPIUM NEB FS 0.5 MG/2.5 ML AMPUL.NEB IH SCH ×4 (00:55→19:54)
[2016-09-27] MEDS: PANTOPRAZOLE 40 MG TABLET.DR PO SCH (06:45)
[2016-09-27] MEDS: BLOOD SUGAR DIAGNOSTIC 1 EACH STRIP VI SCH ×3 (06:51→16:46)
[2016-09-27] MEDS: INSULIN LISPRO/ASPART 100 UNIT/ML CARTRIDGE SQ PRN ×3 (06:52→16:47)
[2016-09-27] MEDS: BUDESONIDE RESPULE INH 0.5 MG/2 ML AMPUL.NEB IH SCH ×2 (07:50→20:36)
[2016-09-27 08:08] VITALS: BP 124/83
[2016-09-27] MEDS: HEPARIN SODIUM, PORCINE 5000 UNITS/1 ML VIAL SQ SCH ×2 (09:00→21:40)
[2016-09-27] MEDS: ASCORBIC ACID 500 MG TABLET PO SCH (09:00)
[2016-09-27] MEDS: SERTRALINE HCL 25 MG TABLET PO SCH (09:00)
[2016-09-27] MEDS: HYDROGEN PEROXIDE 480 ML BOTTLE TP SCH ×2 (09:00→21:41)
[2016-09-27] MEDS: MINERAL OIL/PETROL OINT 396 GM JAR TP SCH ×2 (09:00→21:40)
[2016-09-27] MEDS: DOCUSATE SODIUM 100 MG CAPSULE PO SCH (09:00)
[2016-09-27] MEDS: VIT B CMPLX 3/FA/VIT C/BIOTIN 1 TAB TABLET PO SCH (09:00)
[2016-09-27] MEDS: SITAGLIPTIN PHOSPHATE 25 MG TABLET PO SCH (09:00)
[2016-09-27] MEDS: ZINC OXIDE 56.7 GM TUBE TP SCH ×2 (09:00→21:41)
[2016-09-27] MEDS: PROSOURCE / PROSTAT (PYXIS) 30 ML UDC PO SCH ×3 (09:00→16:46)
[2016-09-27] MEDS: ZINC OXIDE 30 GM TUBE TP SCH ×6 (09:00→21:41)
[2016-09-27] MEDS: POLYVINYL ALCOHOL 15 ML BOTTLE EACHEYE SCH ×4 (09:00→21:40)
--- NOTE | 2016-09-27 16:30 | NUR ---
Flores FLETCHER pharmacist obtained order from Dr. Navarrete to CO Vit D 50,000units q week. Order noted and carried out.
[2016-09-27 19:33] VITALS: BP 142/95
[2016-09-27] MEDS: MONTELUKAST SODIUM (10MG) 10 MG TABLET PO SCH (21:41)
[2016-09-27] MEDS: GABAPENTIN 100 MG CAPSULE PO SCH (21:41)
[2016-09-27] MEDS: TEMAZEPAM 15 MG CAPSULE PO SCH (21:41)
[2016-09-27] MEDS: GUAIFENESIN/D-METHORPHAN HB 5 ML UDC PO PRN (21:42)
[2016-09-28] MEDS: IPRATROPIUM NEB FS 0.5 MG/2.5 ML AMPUL.NEB IH SCH ×4 (02:09→20:24)
[2016-09-28] MEDS: ALBUTEROL FS 2.5 MG/3 ML VIAL.NEB NEB SCH ×4 (02:09→20:24)
[2016-09-28] MEDS: PANTOPRAZOLE 40 MG TABLET.DR PO SCH (05:55)
[2016-09-28] MEDS: BLOOD SUGAR DIAGNOSTIC 1 EACH STRIP VI SCH ×3 (07:01→17:19)
[2016-09-28] MEDS: INSULIN LISPRO/ASPART 100 UNIT/ML CARTRIDGE SQ PRN (07:02)
[2016-09-28 07:49] VITALS: BP 137/90
[2016-09-28] MEDS: BUDESONIDE RESPULE INH 0.5 MG/2 ML AMPUL.NEB IH SCH ×2 (08:52→20:48)
[2016-09-28] MEDS: POLYVINYL ALCOHOL 15 ML BOTTLE EACHEYE SCH ×4 (09:00→21:39)
[2016-09-28] MEDS: DOCUSATE SODIUM 100 MG CAPSULE PO SCH (09:07)
[2016-09-28] MEDS: PROSOURCE / PROSTAT (PYXIS) 30 ML UDC PO SCH ×3 (09:07→17:19)
[2016-09-28] MEDS: SITAGLIPTIN PHOSPHATE 25 MG TABLET PO SCH (09:07)
[2016-09-28] MEDS: SERTRALINE HCL 25 MG TABLET PO SCH (09:07)
[2016-09-28] MEDS: VIT B CMPLX 3/FA/VIT C/BIOTIN 1 TAB TABLET PO SCH (09:07)
[2016-09-28] MEDS: ASCORBIC ACID 500 MG TABLET PO SCH (09:07)
[2016-09-28] MEDS: HYDROGEN PEROXIDE 480 ML BOTTLE TP SCH ×2 (09:08→21:40)
[2016-09-28] MEDS: ZINC OXIDE 56.7 GM TUBE TP SCH ×2 (09:08→21:40)
[2016-09-28] MEDS: MINERAL OIL/PETROL OINT 396 GM JAR TP SCH ×2 (09:08→21:40)
[2016-09-28] MEDS: ZINC OXIDE 30 GM TUBE TP SCH ×6 (09:08→21:40)
[2016-09-28] MEDS: HEPARIN SODIUM, PORCINE 5000 UNITS/1 ML VIAL SQ SCH ×2 (09:08→21:40)
[2016-09-28 19:47] VITALS: BP 138/89
[2016-09-28] MEDS: GUAIFENESIN/D-METHORPHAN HB 5 ML UDC PO PRN (20:40)
[2016-09-28] MEDS: NAPROXEN 500 MG TABLET PO PRN (20:40)
[2016-09-28] MEDS: MONTELUKAST SODIUM (10MG) 10 MG TABLET PO SCH (21:40)
[2016-09-28] MEDS: TEMAZEPAM 15 MG CAPSULE PO SCH (21:40)
[2016-09-28] MEDS: GABAPENTIN 100 MG CAPSULE PO SCH (21:40)
[2016-09-28] MEDS: ATARAX 25 MG PO PRN (21:41)
[2016-09-29] MEDS: IPRATROPIUM NEB FS 0.5 MG/2.5 ML AMPUL.NEB IH SCH ×4 (01:19→20:07)
[2016-09-29] MEDS: ALBUTEROL FS 2.5 MG/3 ML VIAL.NEB NEB SCH ×4 (01:19→20:07)
[2016-09-29] MEDS: PANTOPRAZOLE 40 MG TABLET.DR PO SCH (06:01)
[2016-09-29] MEDS: INSULIN LISPRO/ASPART 100 UNIT/ML CARTRIDGE SQ PRN ×3 (06:45→18:15)
[2016-09-29] MEDS: BLOOD SUGAR DIAGNOSTIC 1 EACH STRIP VI SCH ×3 (06:45→18:15)
[2016-09-29] MEDS: SITAGLIPTIN PHOSPHATE 25 MG TABLET PO SCH (08:15)
[2016-09-29] MEDS: BUDESONIDE RESPULE INH 0.5 MG/2 ML AMPUL.NEB IH SCH ×2 (08:15→20:07)
[2016-09-29] MEDS: POLYVINYL ALCOHOL 15 ML BOTTLE EACHEYE SCH ×4 (08:15→21:00)
[2016-09-29] MEDS: DOCUSATE SODIUM 100 MG CAPSULE PO SCH (08:15)
[2016-09-29] MEDS: VIT B CMPLX 3/FA/VIT C/BIOTIN 1 TAB TABLET PO SCH (08:16)
[2016-09-29] MEDS: PROSOURCE / PROSTAT (PYXIS) 30 ML UDC PO SCH ×3 (08:16→17:00)
[2016-09-29] MEDS: SERTRALINE HCL 25 MG TABLET PO SCH (08:16)
[2016-09-29] MEDS: ASCORBIC ACID 500 MG TABLET PO SCH (08:16)
[2016-09-29] MEDS: HEPARIN SODIUM, PORCINE 5000 UNITS/1 ML VIAL SQ SCH ×2 (08:20→21:01)
[2016-09-29] MEDS: HYDROGEN PEROXIDE 480 ML BOTTLE TP SCH ×2 (08:21→21:02)
[2016-09-29] MEDS: ZINC OXIDE 30 GM TUBE TP SCH ×6 (08:21→21:02)
[2016-09-29] MEDS: ZINC OXIDE 56.7 GM TUBE TP SCH ×2 (08:21→21:02)
[2016-09-29] MEDS: MINERAL OIL/PETROL OINT 396 GM JAR TP SCH ×2 (08:21→21:02)
[2016-09-29] MEDS: GUAIFENESIN/D-METHORPHAN HB 5 ML UDC PO PRN ×2 (08:44→21:02)
[2016-09-29] MEDS: ATARAX 25 MG PO PRN (21:03)
[2016-09-29 21:19] VITALS: BP 133/83
[2016-09-29] MEDS: MONTELUKAST SODIUM (10MG) 10 MG TABLET PO SCH (21:26)
[2016-09-29] MEDS: GABAPENTIN 100 MG CAPSULE PO SCH (21:26)
[2016-09-29] MEDS: TEMAZEPAM 15 MG CAPSULE PO SCH (21:26)
[2016-09-30] MEDS: ALBUTEROL FS 2.5 MG/3 ML VIAL.NEB NEB SCH ×4 (01:44→19:39)
[2016-09-30] MEDS: IPRATROPIUM NEB FS 0.5 MG/2.5 ML AMPUL.NEB IH SCH ×4 (01:44→19:39)
[2016-09-30] MEDS: PANTOPRAZOLE 40 MG TABLET.DR PO SCH (05:54)
[2016-09-30] MEDS: BLOOD SUGAR DIAGNOSTIC 1 EACH STRIP VI SCH ×3 (07:40→17:57)
[2016-09-30] MEDS: INSULIN LISPRO/ASPART 100 UNIT/ML CARTRIDGE SQ PRN ×3 (07:42→17:57)
[2016-09-30 08:05] VITALS: BP 133/88
[2016-09-30] MEDS: BUDESONIDE RESPULE INH 0.5 MG/2 ML AMPUL.NEB IH SCH ×2 (08:21→21:00)
[2016-09-30] MEDS: DOCUSATE SODIUM 100 MG CAPSULE PO SCH (08:24)
[2016-09-30] MEDS: ASCORBIC ACID 500 MG TABLET PO SCH (08:24)
[2016-09-30] MEDS: VIT B CMPLX 3/FA/VIT C/BIOTIN 1 TAB TABLET PO SCH (08:24)
[2016-09-30] MEDS: PROSOURCE / PROSTAT (PYXIS) 30 ML UDC PO SCH ×3 (08:24→17:56)
[2016-09-30] MEDS: POLYVINYL ALCOHOL 15 ML BOTTLE EACHEYE SCH ×4 (08:24→20:47)
[2016-09-30] MEDS: SERTRALINE HCL 25 MG TABLET PO SCH (08:24)
[2016-09-30] MEDS: SITAGLIPTIN PHOSPHATE 25 MG TABLET PO SCH (08:24)
[2016-09-30] MEDS: MINERAL OIL/PETROL OINT 396 GM JAR TP SCH ×2 (08:25→20:48)
[2016-09-30] MEDS: HEPARIN SODIUM, PORCINE 5000 UNITS/1 ML VIAL SQ SCH ×2 (08:25→20:47)
[2016-09-30] MEDS: GUAIFENESIN/D-METHORPHAN HB 5 ML UDC PO PRN ×2 (08:49→20:48)
[2016-09-30] MEDS: HYDROGEN PEROXIDE 480 ML BOTTLE TP SCH ×2 (09:00→20:48)
[2016-09-30] MEDS: ZINC OXIDE 56.7 GM TUBE TP SCH ×2 (09:00→20:48)
[2016-09-30] MEDS: ZINC OXIDE 30 GM TUBE TP SCH ×6 (09:00→20:48)
[2016-09-30 19:46] VITALS: BP 150/96
[2016-09-30] MEDS: ATARAX 25 MG PO PRN (20:48)
[2016-09-30] MEDS: TEMAZEPAM 15 MG CAPSULE PO SCH (21:31)
[2016-09-30] MEDS: GABAPENTIN 100 MG CAPSULE PO SCH (21:31)
[2016-09-30] MEDS: MONTELUKAST SODIUM (10MG) 10 MG TABLET PO SCH (21:31)
[2016-10-01] MEDS: ALBUTEROL FS 2.5 MG/3 ML VIAL.NEB NEB SCH ×4 (01:00→19:30)
[2016-10-01] MEDS: IPRATROPIUM NEB FS 0.5 MG/2.5 ML AMPUL.NEB IH SCH ×4 (01:00→19:30)
[2016-10-01] MEDS: PANTOPRAZOLE 40 MG TABLET.DR PO SCH (05:54)
[2016-10-01] MEDS: BLOOD SUGAR DIAGNOSTIC 1 EACH STRIP VI SCH ×3 (07:25→17:41)
[2016-10-01] MEDS: INSULIN LISPRO/ASPART 100 UNIT/ML CARTRIDGE SQ PRN ×2 (07:26→17:42)
[2016-10-01 08:13] VITALS: BP 151/98
[2016-10-01] MEDS: VIT B CMPLX 3/FA/VIT C/BIOTIN 1 TAB TABLET PO SCH (08:14)
[2016-10-01] MEDS: DOCUSATE SODIUM 100 MG CAPSULE PO SCH (08:14)
[2016-10-01] MEDS: SITAGLIPTIN PHOSPHATE 25 MG TABLET PO SCH (08:14)
[2016-10-01] MEDS: PROSOURCE / PROSTAT (PYXIS) 30 ML UDC PO SCH ×3 (08:14→17:41)
[2016-10-01] MEDS: ERGOCALCIFEROL (VITAMIN D 2) 50,000 UNIT CAPSULE PO SCH (08:14)
[2016-10-01] MEDS: POLYVINYL ALCOHOL 15 ML BOTTLE EACHEYE SCH ×4 (08:14→20:43)
[2016-10-01] MEDS: SERTRALINE HCL 25 MG TABLET PO SCH (08:15)
[2016-10-01] MEDS: ASCORBIC ACID 500 MG TABLET PO SCH (08:15)
[2016-10-01] MEDS: HEPARIN SODIUM, PORCINE 5000 UNITS/1 ML VIAL SQ SCH ×2 (08:16→20:50)
[2016-10-01] MEDS: MINERAL OIL/PETROL OINT 396 GM JAR TP SCH ×2 (08:19→20:50)
[2016-10-01] MEDS: BUDESONIDE RESPULE INH 0.5 MG/2 ML AMPUL.NEB IH SCH ×2 (08:47→21:16)
[2016-10-01] MEDS: ZINC OXIDE 56.7 GM TUBE TP SCH ×2 (09:00→20:51)
[2016-10-01] MEDS: ZINC OXIDE 30 GM TUBE TP SCH ×6 (09:00→20:51)
[2016-10-01] MEDS: HYDROGEN PEROXIDE 480 ML BOTTLE TP SCH ×2 (09:00→20:50)
[2016-10-01] MEDS: GUAIFENESIN/D-METHORPHAN HB 5 ML UDC PO PRN (09:47)
[2016-10-01 19:45] VITALS: BP 145/94
[2016-10-01] MEDS: GABAPENTIN 100 MG CAPSULE PO SCH (21:37)
[2016-10-01] MEDS: TEMAZEPAM 15 MG CAPSULE PO SCH (21:38)
[2016-10-01] MEDS: MONTELUKAST SODIUM (10MG) 10 MG TABLET PO SCH (21:38)
[2016-10-02] MEDS: ALBUTEROL FS 2.5 MG/3 ML VIAL.NEB NEB SCH ×4 (02:17→20:44)
[2016-10-02] MEDS: IPRATROPIUM NEB FS 0.5 MG/2.5 ML AMPUL.NEB IH SCH ×4 (02:17→20:44)
[2016-10-02] MEDS: PANTOPRAZOLE 40 MG TABLET.DR PO SCH (05:49)
[2016-10-02] MEDS: BLOOD SUGAR DIAGNOSTIC 1 EACH STRIP VI SCH ×3 (07:31→18:10)
[2016-10-02] MEDS: BUDESONIDE RESPULE INH 0.5 MG/2 ML AMPUL.NEB IH SCH ×2 (08:01→21:19)
[2016-10-02 08:03] VITALS: BP 144/89
[2016-10-02] MEDS: POLYVINYL ALCOHOL 15 ML BOTTLE EACHEYE SCH ×4 (08:17→21:50)
[2016-10-02] MEDS: VIT B CMPLX 3/FA/VIT C/BIOTIN 1 TAB TABLET PO SCH (08:18)
[2016-10-02] MEDS: ZINC OXIDE 30 GM TUBE TP SCH ×6 (08:18→21:50)
[2016-10-02] MEDS: DOCUSATE SODIUM 100 MG CAPSULE PO SCH (08:18)
[2016-10-02] MEDS: SITAGLIPTIN PHOSPHATE 25 MG TABLET PO SCH (08:18)
[2016-10-02] MEDS: HYDROGEN PEROXIDE 480 ML BOTTLE TP SCH ×2 (08:18→21:50)
[2016-10-02] MEDS: MINERAL OIL/PETROL OINT 396 GM JAR TP SCH ×2 (08:18→21:50)
[2016-10-02] MEDS: SERTRALINE HCL 25 MG TABLET PO SCH (08:18)
[2016-10-02] MEDS: ASCORBIC ACID 500 MG TABLET PO SCH (08:18)
[2016-10-02] MEDS: PROSOURCE / PROSTAT (PYXIS) 30 ML UDC PO SCH ×3 (08:18→17:00)
[2016-10-02] MEDS: HEPARIN SODIUM, PORCINE 5000 UNITS/1 ML VIAL SQ SCH ×2 (08:18→21:50)
[2016-10-02] MEDS: ZINC OXIDE 56.7 GM TUBE TP SCH ×2 (08:19→21:50)
[2016-10-02] MEDS: GUAIFENESIN/D-METHORPHAN HB 5 ML UDC PO PRN ×2 (09:00→22:02)
[2016-10-02] MEDS: NAPROXEN 500 MG TABLET PO PRN (09:00)
[2016-10-02] MEDS: ATARAX 25 MG PO PRN ×2 (09:00→22:02)
[2016-10-02] MEDS: INSULIN LISPRO/ASPART 100 UNIT/ML CARTRIDGE SQ PRN (12:06)
[2016-10-02 20:00] VITALS: BP 154/99
[2016-10-02] MEDS: GABAPENTIN 100 MG CAPSULE PO SCH (22:01)
[2016-10-02] MEDS: MONTELUKAST SODIUM (10MG) 10 MG TABLET PO SCH (22:02)
[2016-10-02] MEDS: TEMAZEPAM 15 MG CAPSULE PO SCH (22:02)
[2016-10-03] MEDS: ALBUTEROL FS 2.5 MG/3 ML VIAL.NEB NEB SCH ×4 (01:27→20:26)
[2016-10-03] MEDS: IPRATROPIUM NEB FS 0.5 MG/2.5 ML AMPUL.NEB IH SCH ×4 (01:27→20:26)
[2016-10-03] MEDS: PANTOPRAZOLE 40 MG TABLET.DR PO SCH (06:15)
[2016-10-03] MEDS: BLOOD SUGAR DIAGNOSTIC 1 EACH STRIP VI SCH ×3 (06:51→16:51)
[2016-10-03] MEDS: INSULIN LISPRO/ASPART 100 UNIT/ML CARTRIDGE SQ PRN ×2 (06:54→16:52)
[2016-10-03 07:31] VITALS: BP 143/92
[2016-10-03] MEDS: POLYVINYL ALCOHOL 15 ML BOTTLE EACHEYE SCH ×4 (08:14→21:41)
[2016-10-03] MEDS: SERTRALINE HCL 25 MG TABLET PO SCH (08:14)
[2016-10-03] MEDS: DOCUSATE SODIUM 100 MG CAPSULE PO SCH (08:14)
[2016-10-03] MEDS: MINERAL OIL/PETROL OINT 396 GM JAR TP SCH ×2 (08:14→21:41)
[2016-10-03] MEDS: HEPARIN SODIUM, PORCINE 5000 UNITS/1 ML VIAL SQ SCH ×2 (08:14→21:41)
[2016-10-03] MEDS: SITAGLIPTIN PHOSPHATE 25 MG TABLET PO SCH (08:14)
[2016-10-03] MEDS: PROSOURCE / PROSTAT (PYXIS) 30 ML UDC PO SCH ×3 (08:14→16:51)
[2016-10-03] MEDS: VIT B CMPLX 3/FA/VIT C/BIOTIN 1 TAB TABLET PO SCH (08:14)
[2016-10-03] MEDS: HYDROGEN PEROXIDE 480 ML BOTTLE TP SCH ×2 (08:14→21:41)
[2016-10-03] MEDS: ASCORBIC ACID 500 MG TABLET PO SCH (08:14)
[2016-10-03] MEDS: ZINC OXIDE 30 GM TUBE TP SCH ×6 (08:15→21:42)
[2016-10-03] MEDS: ZINC OXIDE 56.7 GM TUBE TP SCH ×2 (08:15→21:42)
[2016-10-03] MEDS: BUDESONIDE RESPULE INH 0.5 MG/2 ML AMPUL.NEB IH SCH ×2 (09:22→21:01)
[2016-10-03 19:57] VITALS: BP 139/94
[2016-10-03] MEDS: TEMAZEPAM 15 MG CAPSULE PO SCH (21:42)
[2016-10-03] MEDS: ATARAX 25 MG PO PRN (21:42)
[2016-10-03] MEDS: GUAIFENESIN/D-METHORPHAN HB 5 ML UDC PO PRN (21:42)
[2016-10-03] MEDS: MONTELUKAST SODIUM (10MG) 10 MG TABLET PO SCH (21:42)
[2016-10-03] MEDS: NAPROXEN 500 MG TABLET PO PRN (21:42)
[2016-10-03] MEDS: GABAPENTIN 100 MG CAPSULE PO SCH (21:42)
[2016-10-04] MEDS: IPRATROPIUM NEB FS 0.5 MG/2.5 ML AMPUL.NEB IH SCH ×4 (02:09→19:30)
[2016-10-04] MEDS: ALBUTEROL FS 2.5 MG/3 ML VIAL.NEB NEB SCH ×4 (02:09→19:30)
[2016-10-04] MEDS: PANTOPRAZOLE 40 MG TABLET.DR PO SCH (05:20)
[2016-10-04] MEDS: BLOOD SUGAR DIAGNOSTIC 1 EACH STRIP VI SCH ×3 (06:35→16:59)
[2016-10-04] MEDS: INSULIN LISPRO/ASPART 100 UNIT/ML CARTRIDGE SQ PRN ×2 (06:36→12:28)
[2016-10-04 07:35] VITALS: BP 143/96
[2016-10-04] MEDS: BUDESONIDE RESPULE INH 0.5 MG/2 ML AMPUL.NEB IH SCH ×2 (08:33→21:04)
[2016-10-04] MEDS: DOCUSATE SODIUM 100 MG CAPSULE PO SCH (09:21)
[2016-10-04] MEDS: ASCORBIC ACID 500 MG TABLET PO SCH (09:21)
[2016-10-04] MEDS: PROSOURCE / PROSTAT (PYXIS) 30 ML UDC PO SCH ×3 (09:21→16:59)
[2016-10-04] MEDS: POLYVINYL ALCOHOL 15 ML BOTTLE EACHEYE SCH ×4 (09:21→20:23)
[2016-10-04] MEDS: HEPARIN SODIUM, PORCINE 5000 UNITS/1 ML VIAL SQ SCH ×2 (09:21→20:23)
[2016-10-04] MEDS: SITAGLIPTIN PHOSPHATE 25 MG TABLET PO SCH (09:21)
[2016-10-04] MEDS: SERTRALINE HCL 25 MG TABLET PO SCH (09:21)
[2016-10-04] MEDS: VIT B CMPLX 3/FA/VIT C/BIOTIN 1 TAB TABLET PO SCH (09:21)
[2016-10-04] MEDS: ZINC OXIDE 56.7 GM TUBE TP SCH ×2 (09:22→20:24)
[2016-10-04] MEDS: ZINC OXIDE 30 GM TUBE TP SCH ×5 (09:22→20:24)
[2016-10-04] MEDS: MINERAL OIL/PETROL OINT 396 GM JAR TP SCH ×2 (09:22→20:23)
[2016-10-04] MEDS: HYDROGEN PEROXIDE 480 ML BOTTLE TP SCH ×2 (09:22→20:24)
[2016-10-04] MEDS: GUAIFENESIN/D-METHORPHAN HB 5 ML UDC PO PRN ×2 (09:35→20:24)
[2016-10-04 20:00] VITALS: BP 143/97
[2016-10-04] MEDS: NAPROXEN 500 MG TABLET PO PRN (20:24)
[2016-10-04] MEDS: ATARAX 25 MG PO PRN (20:24)
[2016-10-04] MEDS: GABAPENTIN 100 MG CAPSULE PO SCH (21:24)
[2016-10-04] MEDS: MONTELUKAST SODIUM (10MG) 10 MG TABLET PO SCH (21:24)
[2016-10-04] MEDS: TEMAZEPAM 15 MG CAPSULE PO SCH (21:24)
[2016-10-05] MEDS: ALBUTEROL FS 2.5 MG/3 ML VIAL.NEB NEB SCH ×4 (02:27→20:15)
[2016-10-05] MEDS: IPRATROPIUM NEB FS 0.5 MG/2.5 ML AMPUL.NEB IH SCH ×4 (02:27→20:15)
[2016-10-05] MEDS: PANTOPRAZOLE 40 MG TABLET.DR PO SCH (05:22)
[2016-10-05] MEDS: INSULIN LISPRO/ASPART 100 UNIT/ML CARTRIDGE SQ PRN (06:49)
[2016-10-05] MEDS: BLOOD SUGAR DIAGNOSTIC 1 EACH STRIP VI SCH ×3 (06:49→16:52)
[2016-10-05 08:02] VITALS: BP 124/78
[2016-10-05] MEDS: DOCUSATE SODIUM 100 MG CAPSULE PO SCH (08:31)
[2016-10-05] MEDS: POLYVINYL ALCOHOL 15 ML BOTTLE EACHEYE SCH ×4 (08:31→20:33)
[2016-10-05] MEDS: SITAGLIPTIN PHOSPHATE 25 MG TABLET PO SCH (08:31)
[2016-10-05] MEDS: PROSOURCE / PROSTAT (PYXIS) 30 ML UDC PO SCH ×3 (08:31→16:52)
[2016-10-05] MEDS: SERTRALINE HCL 25 MG TABLET PO SCH (08:31)
[2016-10-05] MEDS: ASCORBIC ACID 500 MG TABLET PO SCH (08:31)
[2016-10-05] MEDS: VIT B CMPLX 3/FA/VIT C/BIOTIN 1 TAB TABLET PO SCH (08:31)
[2016-10-05] MEDS: ZINC OXIDE 30 GM TUBE TP SCH ×3 (08:35→20:34)
[2016-10-05] MEDS: HEPARIN SODIUM, PORCINE 5000 UNITS/1 ML VIAL SQ SCH ×2 (08:35→20:34)
[2016-10-05] MEDS: HYDROGEN PEROXIDE 480 ML BOTTLE TP SCH ×2 (08:35→20:34)
[2016-10-05] MEDS: MINERAL OIL/PETROL OINT 396 GM JAR TP SCH ×2 (08:35→20:34)
[2016-10-05] MEDS: ZINC OXIDE 56.7 GM TUBE TP SCH ×2 (08:35→20:34)
[2016-10-05] MEDS: BUDESONIDE RESPULE INH 0.5 MG/2 ML AMPUL.NEB IH SCH ×2 (09:23→20:16)
[2016-10-05] MEDS: GUAIFENESIN/D-METHORPHAN HB 5 ML UDC PO PRN ×2 (14:31→20:34)
[2016-10-05 19:53] VITALS: BP 140/89
[2016-10-05] MEDS: BACLOFEN (10 MG) 10 MG TABLET PO PRN (20:34)
[2016-10-05] MEDS: ATARAX 25 MG PO PRN (20:34)
[2016-10-05] MEDS: NAPROXEN 500 MG TABLET PO PRN (20:34)
[2016-10-05] MEDS: MONTELUKAST SODIUM (10MG) 10 MG TABLET PO SCH (21:32)
[2016-10-05] MEDS: TEMAZEPAM 15 MG CAPSULE PO SCH (21:32)
[2016-10-05] MEDS: GABAPENTIN 100 MG CAPSULE PO SCH (21:32)
[2016-10-06] MEDS: IPRATROPIUM NEB FS 0.5 MG/2.5 ML AMPUL.NEB IH SCH ×4 (01:29→20:20)
[2016-10-06] MEDS: ALBUTEROL FS 2.5 MG/3 ML VIAL.NEB NEB SCH ×4 (01:29→20:20)
[2016-10-06] MEDS: PANTOPRAZOLE 40 MG TABLET.DR PO SCH (05:19)
[2016-10-06] MEDS: BLOOD SUGAR DIAGNOSTIC 1 EACH STRIP VI SCH ×3 (06:43→17:18)
[2016-10-06] MEDS: INSULIN LISPRO/ASPART 100 UNIT/ML CARTRIDGE SQ PRN ×2 (06:44→12:07)
[2016-10-06 08:13] VITALS: BP 138/86
[2016-10-06] MEDS: POLYVINYL ALCOHOL 15 ML BOTTLE EACHEYE SCH ×4 (08:44→21:00)
[2016-10-06] MEDS: SERTRALINE HCL 25 MG TABLET PO SCH (08:45)
[2016-10-06] MEDS: PROSOURCE / PROSTAT (PYXIS) 30 ML UDC PO SCH ×3 (08:45→17:18)
[2016-10-06] MEDS: ASCORBIC ACID 500 MG TABLET PO SCH (08:45)
[2016-10-06] MEDS: VIT B CMPLX 3/FA/VIT C/BIOTIN 1 TAB TABLET PO SCH (08:45)
[2016-10-06] MEDS: SITAGLIPTIN PHOSPHATE 25 MG TABLET PO SCH (08:45)
[2016-10-06] MEDS: DOCUSATE SODIUM 100 MG CAPSULE PO SCH (08:45)
[2016-10-06] MEDS: HEPARIN SODIUM, PORCINE 5000 UNITS/1 ML VIAL SQ SCH ×2 (08:46→20:36)
[2016-10-06] MEDS: HYDROGEN PEROXIDE 480 ML BOTTLE TP SCH ×2 (08:47→20:36)
[2016-10-06] MEDS: ZINC OXIDE 56.7 GM TUBE TP SCH ×2 (08:47→20:36)
[2016-10-06] MEDS: BUDESONIDE RESPULE INH 0.5 MG/2 ML AMPUL.NEB IH SCH ×2 (08:47→20:20)
[2016-10-06] MEDS: ZINC OXIDE 30 GM TUBE TP SCH ×2 (08:47→20:36)
[2016-10-06] MEDS: MINERAL OIL/PETROL OINT 396 GM JAR TP SCH ×2 (08:47→20:36)
[2016-10-06] MEDS: NAPROXEN 500 MG TABLET PO PRN (09:00)
[2016-10-06] MEDS: ATARAX 25 MG PO PRN (09:00)
[2016-10-06] MEDS: GUAIFENESIN/D-METHORPHAN HB 5 ML UDC PO PRN ×2 (09:00→20:34)
--- NOTE | 2016-10-06 17:00 | NUR ---
Patient noted with sacral excoriation no bleeding noted, no s/sx of infection noted. Patient has a current treatment on sacral area. Will continue to reposition patient every two hours and as needed. No complained of pain or discomfort. ARNOL Petty notified with order for wound consult tomorrow noted and carried out. Patient made aware of it.
[2016-10-06 20:22] VITALS: BP 133/96
[2016-10-06] MEDS: TEMAZEPAM 15 MG CAPSULE PO SCH (22:00)
[2016-10-06] MEDS: GABAPENTIN 100 MG CAPSULE PO SCH (22:00)
[2016-10-06] MEDS: MONTELUKAST SODIUM (10MG) 10 MG TABLET PO SCH (22:00)
[2016-10-07] MEDS: ALBUTEROL FS 2.5 MG/3 ML VIAL.NEB NEB SCH ×4 (02:09→20:05)
[2016-10-07] MEDS: IPRATROPIUM NEB FS 0.5 MG/2.5 ML AMPUL.NEB IH SCH ×4 (02:09→20:05)
[2016-10-07] MEDS: PANTOPRAZOLE 40 MG TABLET.DR PO SCH (06:40)
[2016-10-07] MEDS: BLOOD SUGAR DIAGNOSTIC 1 EACH STRIP VI SCH ×3 (06:40→17:20)
[2016-10-07] MEDS: INSULIN LISPRO/ASPART 100 UNIT/ML CARTRIDGE SQ PRN ×2 (06:41→11:43)
[2016-10-07] MEDS: BUDESONIDE RESPULE INH 0.5 MG/2 ML AMPUL.NEB IH SCH ×2 (07:22→20:33)
[2016-10-07 07:51] VITALS: BP 146/76
[2016-10-07] MEDS: SITAGLIPTIN PHOSPHATE 25 MG TABLET PO SCH (08:48)
[2016-10-07] MEDS: POLYVINYL ALCOHOL 15 ML BOTTLE EACHEYE SCH ×4 (08:48→21:12)
[2016-10-07] MEDS: VIT B CMPLX 3/FA/VIT C/BIOTIN 1 TAB TABLET PO SCH (08:48)
[2016-10-07] MEDS: DOCUSATE SODIUM 100 MG CAPSULE PO SCH (08:48)
[2016-10-07] MEDS: ASCORBIC ACID 500 MG TABLET PO SCH (08:49)
[2016-10-07] MEDS: MINERAL OIL/PETROL OINT 396 GM JAR TP SCH ×2 (08:49→21:13)
[2016-10-07] MEDS: HYDROGEN PEROXIDE 480 ML BOTTLE TP SCH ×2 (08:49→21:13)
[2016-10-07] MEDS: ZINC OXIDE 56.7 GM TUBE TP SCH ×2 (08:49→21:13)
[2016-10-07] MEDS: SERTRALINE HCL 25 MG TABLET PO SCH (08:49)
[2016-10-07] MEDS: PROSOURCE / PROSTAT (PYXIS) 30 ML UDC PO SCH ×3 (08:49→17:20)
[2016-10-07] MEDS: ZINC OXIDE 30 GM TUBE TP SCH ×2 (08:49→21:13)
[2016-10-07] MEDS: HEPARIN SODIUM, PORCINE 5000 UNITS/1 ML VIAL SQ SCH ×2 (08:50→21:13)
[2016-10-07] MEDS: GUAIFENESIN/D-METHORPHAN HB 5 ML UDC PO PRN (09:05)
--- NOTE | 2016-10-07 17:00 | NUR ---
Seen by Dr. Chappell (applications development analyst). He trimmed pt's toenails and the callous-like growth on the left great toe. He also explained to pt the reason why he sometimes feels pain in his feet and why his toes are curled.
[2016-10-07 20:18] VITALS: BP 150/81
[2016-10-07] MEDS: MONTELUKAST SODIUM (10MG) 10 MG TABLET PO SCH (21:13)
[2016-10-07] MEDS: GABAPENTIN 100 MG CAPSULE PO SCH (21:13)
[2016-10-07] MEDS: TEMAZEPAM 15 MG CAPSULE PO SCH (21:13)
[2016-10-08] MEDS: IPRATROPIUM NEB FS 0.5 MG/2.5 ML AMPUL.NEB IH SCH ×4 (02:18→19:36)
[2016-10-08] MEDS: ALBUTEROL FS 2.5 MG/3 ML VIAL.NEB NEB SCH ×4 (02:18→19:36)
[2016-10-08] MEDS: PANTOPRAZOLE 40 MG TABLET.DR PO SCH (06:03)
[2016-10-08] MEDS: BLOOD SUGAR DIAGNOSTIC 1 EACH STRIP VI SCH ×3 (07:30→17:59)
--- NOTE | 2016-10-08 07:45 | NUR ---
Seen by ARNOL Petty. Pt asked for tests to check if he has cancer. He said both of his parents of cancer and his older brother just had surgery due to colon cancer. ARNOL Petty asked him if he ever had a colonoscopy done and he said no. ARNOL Petty ordered stool OB x 3.
[2016-10-08 07:58] VITALS: BP 145/105
[2016-10-08] MEDS: BUDESONIDE RESPULE INH 0.5 MG/2 ML AMPUL.NEB IH SCH ×2 (08:09→19:36)
[2016-10-08] MEDS: SERTRALINE HCL 25 MG TABLET PO SCH (08:37)
[2016-10-08] MEDS: POLYVINYL ALCOHOL 15 ML BOTTLE EACHEYE SCH ×4 (08:37→20:57)
[2016-10-08] MEDS: SITAGLIPTIN PHOSPHATE 25 MG TABLET PO SCH (08:37)
[2016-10-08] MEDS: DOCUSATE SODIUM 100 MG CAPSULE PO SCH (08:37)
[2016-10-08] MEDS: ASCORBIC ACID 500 MG TABLET PO SCH (08:37)
[2016-10-08] MEDS: VIT B CMPLX 3/FA/VIT C/BIOTIN 1 TAB TABLET PO SCH (08:37)
[2016-10-08] MEDS: PROSOURCE / PROSTAT (PYXIS) 30 ML UDC PO SCH ×3 (08:37→17:43)
[2016-10-08] MEDS: MINERAL OIL/PETROL OINT 396 GM JAR TP SCH ×2 (08:38→20:58)
[2016-10-08] MEDS: ZINC OXIDE 30 GM TUBE TP SCH ×2 (08:38→20:58)
[2016-10-08] MEDS: ZINC OXIDE 56.7 GM TUBE TP SCH ×2 (08:38→20:58)
[2016-10-08] MEDS: HYDROGEN PEROXIDE 480 ML BOTTLE TP SCH ×2 (08:38→20:58)
[2016-10-08] MEDS: HEPARIN SODIUM, PORCINE 5000 UNITS/1 ML VIAL SQ SCH ×2 (08:38→20:58)
[2016-10-08] MEDS ORDERED: IOHEXOL-300 100 ML VIAL IV ONE (08:45)
[2016-10-08] MEDS ORDERED: IV NS 0.9% 0 ML IV ONE (08:45)
[2016-10-08] MEDS ORDERED: CT SWABBABLE VALVE TRANS SET 1 EA INFUS.SET MC ONE (08:45)
[2016-10-08] MEDS: GUAIFENESIN/D-METHORPHAN HB 5 ML UDC PO PRN ×2 (09:06→21:04)
--- NOTE | 2016-10-08 12:27 | NUR ---
Per charge nurse, tricot knitting machine operator Dr Justin Chappell, ANAT came to see the resident yesterday October 07, 2016.
--- NOTE | 2016-10-08 15:51 | NUR ---
Patient received a notice from the social security office that states that he owes money from the last time resident was receiving benefits and they are deducting $39.00 from every check. Resident stated he is not aware of this and SW informed him that they can call together tomorrow to find out more information. SW will follow up.
--- NOTE | 2016-10-08 15:53 | NUR ---
Resident received his SSI check in the mail. Attached with check is a notice that resident must sign up for direct deposit or a direct express card. Called resident's brother Aly Aaron who stated that he tried to set up a bank account but was unsuccessful and must go to the social security office to obtain some documents. Informed him that resident's check arrived and he stated that he is almost ready with all of the supplies that resident needs. He stated he will come on Friday to visit him. FERNANDO also informed him that he received a letter which states resident was overpaid and that they are deducting $39.00 from his check. He stated that if SW can attach the letter to the check and he will pick it up on Friday and will address it. Resident informed.
[2016-10-08] MEDS: INSULIN LISPRO/ASPART 100 UNIT/ML CARTRIDGE SQ PRN (18:00)
[2016-10-08 19:59] VITALS: BP 135/83
[2016-10-08] MEDS: TEMAZEPAM 15 MG CAPSULE PO SCH (21:04)
[2016-10-08] MEDS: GABAPENTIN 100 MG CAPSULE PO SCH (21:04)
[2016-10-08] MEDS: MONTELUKAST SODIUM (10MG) 10 MG TABLET PO SCH (21:04)
[2016-10-09] MEDS: ALBUTEROL FS 2.5 MG/3 ML VIAL.NEB NEB SCH ×4 (00:30→19:47)
[2016-10-09] MEDS: IPRATROPIUM NEB FS 0.5 MG/2.5 ML AMPUL.NEB IH SCH ×4 (00:30→19:47)
[2016-10-09] MEDS: PANTOPRAZOLE 40 MG TABLET.DR PO SCH (06:08)
[2016-10-09] MEDS: BLOOD SUGAR DIAGNOSTIC 1 EACH STRIP VI SCH ×3 (08:12→17:00)
[2016-10-09] MEDS: POLYVINYL ALCOHOL 15 ML BOTTLE EACHEYE SCH ×4 (08:15→21:12)
[2016-10-09] MEDS: DOCUSATE SODIUM 100 MG CAPSULE PO SCH (08:15)
[2016-10-09] MEDS: VIT B CMPLX 3/FA/VIT C/BIOTIN 1 TAB TABLET PO SCH (08:15)
[2016-10-09] MEDS: SERTRALINE HCL 25 MG TABLET PO SCH (08:15)
[2016-10-09] MEDS: PROSOURCE / PROSTAT (PYXIS) 30 ML UDC PO SCH ×3 (08:15→17:00)
[2016-10-09] MEDS: SITAGLIPTIN PHOSPHATE 25 MG TABLET PO SCH (08:15)
[2016-10-09] MEDS: ASCORBIC ACID 500 MG TABLET PO SCH (08:15)
[2016-10-09] MEDS: HYDROGEN PEROXIDE 480 ML BOTTLE TP SCH ×2 (08:16→21:13)
[2016-10-09] MEDS: ZINC OXIDE 30 GM TUBE TP SCH ×2 (08:16→21:13)
[2016-10-09] MEDS: ZINC OXIDE 56.7 GM TUBE TP SCH ×2 (08:16→21:13)
[2016-10-09] MEDS: MINERAL OIL/PETROL OINT 396 GM JAR TP SCH ×2 (08:16→21:13)
[2016-10-09] MEDS: HEPARIN SODIUM, PORCINE 5000 UNITS/1 ML VIAL SQ SCH ×2 (08:16→21:13)
[2016-10-09] MEDS: BUDESONIDE RESPULE INH 0.5 MG/2 ML AMPUL.NEB IH SCH ×2 (08:20→19:47)
--- NOTE | 2016-10-09 09:10 | NUR ---
WOUND CARE CONSULT: PT SEEN FOR GLUTEAL CREASE EXCORIATION (MOISTURE RELATED). CONCUR WITH CURRENT TREATMENT OF ZINC OXIDE AND MEPILEX. SKIN TO BE KEPT CLEAN AND DRY. DISCUSSED WITH NURSING STAFF. WILL SEE PRGlenroy ROGERS IN AGREEMENT WITH PLAN OF CARE.
--- NOTE | 2016-10-09 10:12 | NUR ---
Spoke to the resident again and he agrees to wait until his brother can call the social security administration about the money that he owes. Per resident's brother Aly Aaron, he will visit on Friday and SW will leave the resident's SSI check with the resident, as resident asked SW to hold it until then so that it will not get lost. Resident continually stating anger towards previous metallurgical engineer and blames him for walking. SW explained to him that a new metallurgical engineer has explained to him why he is not able to walk and why his toes are pointing in opposite direction (per PT, resident is not able to walk anymore as bones/legs are fragile and he has not used his feet for some time now- confirmed by metallurgical engineer). Per CNO, provided list of legal resources for the resident and he stated he will have his brother help him.
[2016-10-09] MEDS: INSULIN LISPRO/ASPART 100 UNIT/ML CARTRIDGE SQ PRN (12:52)
[2016-10-09 20:06] VITALS: BP 139/94
[2016-10-09] MEDS: MONTELUKAST SODIUM (10MG) 10 MG TABLET PO SCH (21:13)
[2016-10-09] MEDS: TEMAZEPAM 15 MG CAPSULE PO SCH (21:13)
[2016-10-09] MEDS: GABAPENTIN 100 MG CAPSULE PO SCH (21:13)
[2016-10-09] MEDS: GUAIFENESIN/D-METHORPHAN HB 5 ML UDC PO PRN (21:14)
[2016-10-10] MEDS: IPRATROPIUM NEB FS 0.5 MG/2.5 ML AMPUL.NEB IH SCH ×4 (01:50→19:49)
[2016-10-10] MEDS: ALBUTEROL FS 2.5 MG/3 ML VIAL.NEB NEB SCH ×4 (01:50→19:49)
[2016-10-10] MEDS: PANTOPRAZOLE 40 MG TABLET.DR PO SCH (05:51)
[2016-10-10] MEDS: BLOOD SUGAR DIAGNOSTIC 1 EACH STRIP VI SCH ×3 (07:30→17:13)
[2016-10-10 07:50] VITALS: BP 147/100
[2016-10-10] MEDS: SITAGLIPTIN PHOSPHATE 25 MG TABLET PO SCH (08:37)
[2016-10-10] MEDS: PROSOURCE / PROSTAT (PYXIS) 30 ML UDC PO SCH ×3 (08:37→17:13)
[2016-10-10] MEDS: DOCUSATE SODIUM 100 MG CAPSULE PO SCH (08:37)
[2016-10-10] MEDS: SERTRALINE HCL 25 MG TABLET PO SCH (08:37)
[2016-10-10] MEDS: ASCORBIC ACID 500 MG TABLET PO SCH (08:37)
[2016-10-10] MEDS: VIT B CMPLX 3/FA/VIT C/BIOTIN 1 TAB TABLET PO SCH (08:37)
[2016-10-10] MEDS: POLYVINYL ALCOHOL 15 ML BOTTLE EACHEYE SCH ×4 (08:37→20:30)
[2016-10-10] MEDS: GUAIFENESIN/D-METHORPHAN HB 5 ML UDC PO PRN ×2 (08:39→20:29)
[2016-10-10] MEDS: BUDESONIDE RESPULE INH 0.5 MG/2 ML AMPUL.NEB IH SCH ×2 (08:44→20:05)
[2016-10-10] MEDS: ZINC OXIDE 56.7 GM TUBE TP SCH ×2 (09:00→20:29)
[2016-10-10] MEDS: HYDROGEN PEROXIDE 480 ML BOTTLE TP SCH ×2 (09:00→20:29)
[2016-10-10] MEDS: HEPARIN SODIUM, PORCINE 5000 UNITS/1 ML VIAL SQ SCH ×2 (09:00→20:29)
[2016-10-10] MEDS: MINERAL OIL/PETROL OINT 396 GM JAR TP SCH ×2 (09:00→20:29)
[2016-10-10 19:43] VITALS: BP 145/91
[2016-10-10] MEDS: ATARAX 25 MG PO PRN (20:29)
[2016-10-10] MEDS: NAPROXEN 500 MG TABLET PO PRN (20:29)
[2016-10-10] MEDS: GABAPENTIN 100 MG CAPSULE PO SCH (21:35)
[2016-10-10] MEDS: TEMAZEPAM 15 MG CAPSULE PO SCH (21:36)
[2016-10-10] MEDS: MONTELUKAST SODIUM (10MG) 10 MG TABLET PO SCH (21:36)
[2016-10-11] MEDS: ALBUTEROL FS 2.5 MG/3 ML VIAL.NEB NEB SCH ×4 (02:10→20:11)
[2016-10-11] MEDS: IPRATROPIUM NEB FS 0.5 MG/2.5 ML AMPUL.NEB IH SCH ×4 (02:10→20:11)
[2016-10-11] MEDS: PANTOPRAZOLE 40 MG TABLET.DR PO SCH (05:45)
[2016-10-11] MEDS: INSULIN LISPRO/ASPART 100 UNIT/ML CARTRIDGE SQ PRN ×2 (06:45→12:09)
[2016-10-11] MEDS: BLOOD SUGAR DIAGNOSTIC 1 EACH STRIP VI SCH ×3 (06:45→17:06)
[2016-10-11 07:31] VITALS: BP 138/88
[2016-10-11] MEDS: BUDESONIDE RESPULE INH 0.5 MG/2 ML AMPUL.NEB IH SCH ×2 (08:26→20:11)
[2016-10-11] MEDS: PROSOURCE / PROSTAT (PYXIS) 30 ML UDC PO SCH ×3 (09:41→17:06)
[2016-10-11] MEDS: VIT B CMPLX 3/FA/VIT C/BIOTIN 1 TAB TABLET PO SCH (09:41)
[2016-10-11] MEDS: DOCUSATE SODIUM 100 MG CAPSULE PO SCH (09:41)
[2016-10-11] MEDS: POLYVINYL ALCOHOL 15 ML BOTTLE EACHEYE SCH ×4 (09:41→20:34)
[2016-10-11] MEDS: SITAGLIPTIN PHOSPHATE 25 MG TABLET PO SCH (09:41)
[2016-10-11] MEDS: ASCORBIC ACID 500 MG TABLET PO SCH (09:41)
[2016-10-11] MEDS: SERTRALINE HCL 25 MG TABLET PO SCH (09:41)
[2016-10-11] MEDS: MINERAL OIL/PETROL OINT 396 GM JAR TP SCH ×2 (09:42→20:36)
[2016-10-11] MEDS: ZINC OXIDE 56.7 GM TUBE TP SCH ×2 (09:42→20:36)
[2016-10-11] MEDS: HYDROGEN PEROXIDE 480 ML BOTTLE TP SCH ×2 (09:42→20:36)
[2016-10-11] MEDS: HEPARIN SODIUM, PORCINE 5000 UNITS/1 ML VIAL SQ SCH ×2 (09:42→20:36)
[2016-10-11] MEDS: GUAIFENESIN/D-METHORPHAN HB 5 ML UDC PO PRN (17:41)
[2016-10-11 19:44] VITALS: BP 137/90
[2016-10-11] MEDS: ATARAX 25 MG PO PRN (20:36)
[2016-10-11] MEDS: NAPROXEN 500 MG TABLET PO PRN (20:36)
[2016-10-11] MEDS: GABAPENTIN 100 MG CAPSULE PO SCH (21:04)
[2016-10-11] MEDS: MONTELUKAST SODIUM (10MG) 10 MG TABLET PO SCH (21:05)
[2016-10-11] MEDS: TEMAZEPAM 15 MG CAPSULE PO SCH (21:05)
[2016-10-12] MEDS: ALBUTEROL FS 2.5 MG/3 ML VIAL.NEB NEB SCH ×4 (01:30→19:46)
[2016-10-12] MEDS: IPRATROPIUM NEB FS 0.5 MG/2.5 ML AMPUL.NEB IH SCH ×4 (01:30→19:45)
[2016-10-12] MEDS: PANTOPRAZOLE 40 MG TABLET.DR PO SCH (06:44)
[2016-10-12] MEDS: BLOOD SUGAR DIAGNOSTIC 1 EACH STRIP VI SCH ×3 (06:44→16:30)
[2016-10-12 07:32] VITALS: BP 139/90
[2016-10-12] MEDS: SITAGLIPTIN PHOSPHATE 25 MG TABLET PO SCH (08:21)
[2016-10-12] MEDS: VIT B CMPLX 3/FA/VIT C/BIOTIN 1 TAB TABLET PO SCH (08:21)
[2016-10-12] MEDS: SERTRALINE HCL 25 MG TABLET PO SCH (08:21)
[2016-10-12] MEDS: DOCUSATE SODIUM 100 MG CAPSULE PO SCH (08:21)
[2016-10-12] MEDS: PROSOURCE / PROSTAT (PYXIS) 30 ML UDC PO SCH ×3 (08:21→16:27)
[2016-10-12] MEDS: POLYVINYL ALCOHOL 15 ML BOTTLE EACHEYE SCH ×4 (08:21→21:02)
[2016-10-12] MEDS: ASCORBIC ACID 500 MG TABLET PO SCH (08:21)
[2016-10-12] MEDS: HEPARIN SODIUM, PORCINE 5000 UNITS/1 ML VIAL SQ SCH ×2 (08:23→21:02)
[2016-10-12] MEDS: MINERAL OIL/PETROL OINT 396 GM JAR TP SCH ×2 (08:23→21:03)
[2016-10-12] MEDS: GUAIFENESIN/D-METHORPHAN HB 5 ML UDC PO PRN ×2 (09:50→21:03)
[2016-10-12] MEDS: BUDESONIDE RESPULE INH 0.5 MG/2 ML AMPUL.NEB IH SCH ×2 (09:56→20:01)
[2016-10-12] MEDS: INSULIN LISPRO/ASPART 100 UNIT/ML CARTRIDGE SQ PRN (16:31)
[2016-10-12] MEDS: ZINC OXIDE 56.7 GM TUBE TP SCH ×2 (17:08→21:03)
[2016-10-12] MEDS: HYDROGEN PEROXIDE 480 ML BOTTLE TP SCH ×2 (17:08→21:03)
[2016-10-12] MEDS: ATARAX 25 MG PO PRN (17:09)
[2016-10-12 19:44] VITALS: BP 140/99
[2016-10-12] MEDS: NAPROXEN 500 MG TABLET PO PRN (21:03)
[2016-10-12] MEDS: MONTELUKAST SODIUM (10MG) 10 MG TABLET PO SCH (21:03)
[2016-10-12] MEDS: GABAPENTIN 100 MG CAPSULE PO SCH (21:03)
[2016-10-12] MEDS: TEMAZEPAM 15 MG CAPSULE PO SCH (21:03)
[2016-10-13] MEDS: ALBUTEROL FS 2.5 MG/3 ML VIAL.NEB NEB SCH ×4 (01:22→20:09)
[2016-10-13] MEDS: IPRATROPIUM NEB FS 0.5 MG/2.5 ML AMPUL.NEB IH SCH ×4 (01:22→20:09)
[2016-10-13] MEDS: PANTOPRAZOLE 40 MG TABLET.DR PO SCH (06:37)
[2016-10-13 07:36] VITALS: BP 151/91
[2016-10-13] MEDS: BLOOD SUGAR DIAGNOSTIC 1 EACH STRIP VI SCH ×3 (07:57→18:13)
[2016-10-13] MEDS: GUAIFENESIN/D-METHORPHAN HB 5 ML UDC PO PRN (08:26)
[2016-10-13] MEDS: POLYVINYL ALCOHOL 15 ML BOTTLE EACHEYE SCH ×4 (09:26→20:45)
[2016-10-13] MEDS: SERTRALINE HCL 25 MG TABLET PO SCH (09:27)
[2016-10-13] MEDS: DOCUSATE SODIUM 100 MG CAPSULE PO SCH (09:27)
[2016-10-13] MEDS: ASCORBIC ACID 500 MG TABLET PO SCH (09:27)
[2016-10-13] MEDS: VIT B CMPLX 3/FA/VIT C/BIOTIN 1 TAB TABLET PO SCH (09:27)
[2016-10-13] MEDS: BUDESONIDE RESPULE INH 0.5 MG/2 ML AMPUL.NEB IH SCH ×2 (09:27→21:04)
[2016-10-13] MEDS: SITAGLIPTIN PHOSPHATE 25 MG TABLET PO SCH (09:27)
[2016-10-13] MEDS: PROSOURCE / PROSTAT (PYXIS) 30 ML UDC PO SCH ×3 (09:27→17:00)
[2016-10-13] MEDS: HYDROGEN PEROXIDE 480 ML BOTTLE TP SCH ×2 (09:28→20:54)
[2016-10-13] MEDS: HEPARIN SODIUM, PORCINE 5000 UNITS/1 ML VIAL SQ SCH ×2 (09:28→20:53)
[2016-10-13] MEDS: ZINC OXIDE 56.7 GM TUBE TP SCH ×2 (09:28→20:54)
[2016-10-13] MEDS: MINERAL OIL/PETROL OINT 396 GM JAR TP SCH ×2 (09:28→20:54)
[2016-10-13] MEDS: INSULIN LISPRO/ASPART 100 UNIT/ML CARTRIDGE SQ PRN (14:07)
[2016-10-13 21:21] VITALS: BP 142/100
[2016-10-13] MEDS: GABAPENTIN 100 MG CAPSULE PO SCH (22:00)
[2016-10-13] MEDS: MONTELUKAST SODIUM (10MG) 10 MG TABLET PO SCH (22:00)
[2016-10-13] MEDS: TEMAZEPAM 15 MG CAPSULE PO SCH (22:00)
[2016-10-14] MEDS: GUAIFENESIN/D-METHORPHAN HB 5 ML UDC PO PRN (01:18)
[2016-10-14] MEDS: NAPROXEN 500 MG TABLET PO PRN (01:18)
[2016-10-14] MEDS: IPRATROPIUM NEB FS 0.5 MG/2.5 ML AMPUL.NEB IH SCH ×4 (01:57→20:15)
[2016-10-14] MEDS: ALBUTEROL FS 2.5 MG/3 ML VIAL.NEB NEB SCH ×4 (01:57→20:15)
[2016-10-14] MEDS: PANTOPRAZOLE 40 MG TABLET.DR PO SCH (06:15)
[2016-10-14] MEDS: BLOOD SUGAR DIAGNOSTIC 1 EACH STRIP VI SCH ×3 (06:41→17:15)
[2016-10-14] MEDS: INSULIN LISPRO/ASPART 100 UNIT/ML CARTRIDGE SQ PRN ×3 (06:42→17:17)
[2016-10-14 07:57] VITALS: BP 131/93
[2016-10-14] MEDS: BUDESONIDE RESPULE INH 0.5 MG/2 ML AMPUL.NEB IH SCH ×2 (08:09→20:15)
[2016-10-14] MEDS: SERTRALINE HCL 25 MG TABLET PO SCH (09:00)
[2016-10-14] MEDS: DOCUSATE SODIUM 100 MG CAPSULE PO SCH (09:00)
[2016-10-14] MEDS: SITAGLIPTIN PHOSPHATE 25 MG TABLET PO SCH (09:00)
[2016-10-14] MEDS: POLYVINYL ALCOHOL 15 ML BOTTLE EACHEYE SCH ×4 (09:00→20:46)
[2016-10-14] MEDS: VIT B CMPLX 3/FA/VIT C/BIOTIN 1 TAB TABLET PO SCH (09:00)
[2016-10-14] MEDS: HYDROGEN PEROXIDE 480 ML BOTTLE TP SCH ×2 (09:00→20:47)
[2016-10-14] MEDS: MINERAL OIL/PETROL OINT 396 GM JAR TP SCH ×2 (09:00→20:47)
[2016-10-14] MEDS: HEPARIN SODIUM, PORCINE 5000 UNITS/1 ML VIAL SQ SCH ×2 (09:00→20:47)
[2016-10-14] MEDS: ZINC OXIDE 56.7 GM TUBE TP SCH ×2 (09:00→20:47)
[2016-10-14] MEDS: ASCORBIC ACID 500 MG TABLET PO SCH (09:00)
[2016-10-14] MEDS: PROSOURCE / PROSTAT (PYXIS) 30 ML UDC PO SCH ×3 (09:00→17:00)
--- NOTE | 2016-10-14 09:00 | NUR ---
Patient refused prostat, risks and benefits explained
[2016-10-14 19:55] VITALS: BP 149/90
[2016-10-14] MEDS: TEMAZEPAM 15 MG CAPSULE PO SCH (21:20)
[2016-10-14] MEDS: MONTELUKAST SODIUM (10MG) 10 MG TABLET PO SCH (21:20)
[2016-10-14] MEDS: GABAPENTIN 100 MG CAPSULE PO SCH (21:20)
[2016-10-15] MEDS: ALBUTEROL FS 2.5 MG/3 ML VIAL.NEB NEB SCH ×4 (02:00→20:15)
[2016-10-15] MEDS: IPRATROPIUM NEB FS 0.5 MG/2.5 ML AMPUL.NEB IH SCH ×4 (02:00→20:15)
[2016-10-15] MEDS: PANTOPRAZOLE 40 MG TABLET.DR PO SCH (05:59)
[2016-10-15] MEDS: BLOOD SUGAR DIAGNOSTIC 1 EACH STRIP VI SCH ×3 (07:09→18:21)
[2016-10-15 07:58] VITALS: BP 152/59
[2016-10-15] MEDS: BUDESONIDE RESPULE INH 0.5 MG/2 ML AMPUL.NEB IH SCH ×2 (08:17→20:38)
[2016-10-15] MEDS: GUAIFENESIN/D-METHORPHAN HB 5 ML UDC PO PRN ×2 (08:36→21:09)
[2016-10-15] MEDS: PROSOURCE / PROSTAT (PYXIS) 30 ML UDC PO SCH ×3 (08:36→18:15)
[2016-10-15] MEDS: HEPARIN SODIUM, PORCINE 5000 UNITS/1 ML VIAL SQ SCH ×2 (08:36→21:07)
[2016-10-15] MEDS: POLYVINYL ALCOHOL 15 ML BOTTLE EACHEYE SCH ×4 (08:36→21:06)
[2016-10-15] MEDS: VIT B CMPLX 3/FA/VIT C/BIOTIN 1 TAB TABLET PO SCH (08:36)
[2016-10-15] MEDS: ASCORBIC ACID 500 MG TABLET PO SCH (08:36)
[2016-10-15] MEDS: DOCUSATE SODIUM 100 MG CAPSULE PO SCH (08:36)
[2016-10-15] MEDS: SITAGLIPTIN PHOSPHATE 25 MG TABLET PO SCH (08:36)
[2016-10-15] MEDS: NAPROXEN 500 MG TABLET PO PRN (08:36)
[2016-10-15] MEDS: ATARAX 25 MG PO PRN (08:36)
[2016-10-15] MEDS: SERTRALINE HCL 25 MG TABLET PO SCH (08:36)
[2016-10-15] MEDS: HYDROGEN PEROXIDE 480 ML BOTTLE TP SCH ×2 (18:15→21:07)
[2016-10-15] MEDS: MINERAL OIL/PETROL OINT 396 GM JAR TP SCH ×2 (18:15→21:07)
[2016-10-15] MEDS: ZINC OXIDE 56.7 GM TUBE TP SCH ×2 (18:15→21:08)
[2016-10-15 20:27] VITALS: BP 141/97
[2016-10-15] MEDS: GABAPENTIN 100 MG CAPSULE PO SCH (21:08)
[2016-10-15] MEDS: MONTELUKAST SODIUM (10MG) 10 MG TABLET PO SCH (21:08)
[2016-10-15] MEDS: TEMAZEPAM 15 MG CAPSULE PO SCH (21:08)
[2016-10-16] MEDS: ALBUTEROL FS 2.5 MG/3 ML VIAL.NEB NEB SCH ×4 (01:07→20:26)
[2016-10-16] MEDS: IPRATROPIUM NEB FS 0.5 MG/2.5 ML AMPUL.NEB IH SCH ×4 (01:07→20:26)
[2016-10-16] MEDS: PANTOPRAZOLE 40 MG TABLET.DR PO SCH (06:12)
[2016-10-16 08:00] VITALS: BP 129/91
[2016-10-16] MEDS: ASCORBIC ACID 500 MG TABLET PO SCH (08:29)
[2016-10-16] MEDS: MINERAL OIL/PETROL OINT 396 GM JAR TP SCH ×2 (08:29→20:52)
[2016-10-16] MEDS: PROSOURCE / PROSTAT (PYXIS) 30 ML UDC PO SCH ×3 (08:29→17:06)
[2016-10-16] MEDS: BLOOD SUGAR DIAGNOSTIC 1 EACH STRIP VI SCH ×3 (08:29→17:06)
[2016-10-16] MEDS: DOCUSATE SODIUM 100 MG CAPSULE PO SCH (08:29)
[2016-10-16] MEDS: SERTRALINE HCL 25 MG TABLET PO SCH (08:29)
[2016-10-16] MEDS: VIT B CMPLX 3/FA/VIT C/BIOTIN 1 TAB TABLET PO SCH (08:29)
[2016-10-16] MEDS: POLYVINYL ALCOHOL 15 ML BOTTLE EACHEYE SCH ×4 (08:29→20:51)
[2016-10-16] MEDS: SITAGLIPTIN PHOSPHATE 25 MG TABLET PO SCH (08:29)
[2016-10-16] MEDS: ZINC OXIDE 56.7 GM TUBE TP SCH ×2 (08:30→20:52)
[2016-10-16] MEDS: HYDROGEN PEROXIDE 480 ML BOTTLE TP SCH ×2 (08:30→20:52)
[2016-10-16] MEDS: HEPARIN SODIUM, PORCINE 5000 UNITS/1 ML VIAL SQ SCH ×2 (08:31→20:52)
[2016-10-16] MEDS: BUDESONIDE RESPULE INH 0.5 MG/2 ML AMPUL.NEB IH SCH ×2 (08:54→20:26)
[2016-10-16] MEDS: GUAIFENESIN/D-METHORPHAN HB 5 ML UDC PO PRN (10:42)
[2016-10-16] MEDS: INSULIN LISPRO/ASPART 100 UNIT/ML CARTRIDGE SQ PRN ×2 (12:55→17:15)
[2016-10-16 20:00] VITALS: BP 148/99
[2016-10-16] MEDS ORDERED: HEPARIN SODIUM, PORCINE 5000 UNITS/1 ML VIAL ONE (20:29)
[2016-10-16] MEDS: MONTELUKAST SODIUM (10MG) 10 MG TABLET PO SCH (21:19)
[2016-10-16] MEDS: TEMAZEPAM 15 MG CAPSULE PO SCH (21:19)
[2016-10-16] MEDS: GABAPENTIN 100 MG CAPSULE PO SCH (21:19)
[2016-10-17] MEDS: ALBUTEROL FS 2.5 MG/3 ML VIAL.NEB NEB SCH ×4 (01:05→20:23)
[2016-10-17] MEDS: IPRATROPIUM NEB FS 0.5 MG/2.5 ML AMPUL.NEB IH SCH ×4 (01:05→20:23)
[2016-10-17] MEDS: PANTOPRAZOLE 40 MG TABLET.DR PO SCH (05:31)
[2016-10-17] MEDS ORDERED: HEPARIN SODIUM, PORCINE 5000 UNITS/1 ML VIAL ONE ×3 (07:09→20:27)
[2016-10-17] MEDS: BLOOD SUGAR DIAGNOSTIC 1 EACH STRIP VI SCH ×3 (07:30→16:42)
[2016-10-17] MEDS ORDERED: DOCUSATE SODIUM 100 MG CAPSULE PO ONE (07:32)
[2016-10-17] MEDS: BUDESONIDE RESPULE INH 0.5 MG/2 ML AMPUL.NEB IH SCH ×2 (08:50→20:35)
[2016-10-17] MEDS: HYDROGEN PEROXIDE 480 ML BOTTLE TP SCH ×2 (09:00→20:35)
[2016-10-17] MEDS: VIT B CMPLX 3/FA/VIT C/BIOTIN 1 TAB TABLET PO SCH (09:00)
[2016-10-17] MEDS: HEPARIN SODIUM, PORCINE 5000 UNITS/1 ML VIAL SQ SCH ×2 (09:00→20:34)
[2016-10-17] MEDS: MINERAL OIL/PETROL OINT 396 GM JAR TP SCH ×2 (09:00→20:35)
[2016-10-17] MEDS: POLYVINYL ALCOHOL 15 ML BOTTLE EACHEYE SCH ×4 (09:00→20:35)
[2016-10-17] MEDS: ZINC OXIDE 56.7 GM TUBE TP SCH ×2 (09:00→20:35)
[2016-10-17] MEDS: SITAGLIPTIN PHOSPHATE 25 MG TABLET PO SCH (09:00)
[2016-10-17] MEDS: ASCORBIC ACID 500 MG TABLET PO SCH (09:00)
[2016-10-17] MEDS: PROSOURCE / PROSTAT (PYXIS) 30 ML UDC PO SCH ×3 (09:00→16:41)
[2016-10-17] MEDS: DOCUSATE SODIUM 100 MG CAPSULE PO SCH (09:00)
[2016-10-17] MEDS: SERTRALINE HCL 25 MG TABLET PO SCH (09:00)
[2016-10-17] MEDS: GUAIFENESIN/D-METHORPHAN HB 5 ML UDC PO PRN (21:12)
[2016-10-17] MEDS: GABAPENTIN 100 MG CAPSULE PO SCH (21:14)
[2016-10-17] MEDS: MONTELUKAST SODIUM (10MG) 10 MG TABLET PO SCH (21:14)
[2016-10-17] MEDS: TEMAZEPAM 15 MG CAPSULE PO SCH (21:14)
[2016-10-18] MEDS: ALBUTEROL FS 2.5 MG/3 ML VIAL.NEB NEB SCH ×4 (02:05→20:06)
[2016-10-18] MEDS: IPRATROPIUM NEB FS 0.5 MG/2.5 ML AMPUL.NEB IH SCH ×4 (02:05→20:06)
[2016-10-18] MEDS: PANTOPRAZOLE 40 MG TABLET.DR PO SCH (05:55)
[2016-10-18] MEDS: BLOOD SUGAR DIAGNOSTIC 1 EACH STRIP VI SCH ×3 (05:56→17:19)
[2016-10-18] MEDS ORDERED: HEPARIN SODIUM, PORCINE 5000 UNITS/1 ML VIAL ONE ×2 (07:35→21:07)
[2016-10-18] MEDS ORDERED: VIT B CMPLX 3/FA/VIT C/BIOTIN 1 TAB TABLET ONE (07:36)
[2016-10-18] MEDS ORDERED: DOCUSATE SODIUM 100 MG CAPSULE PO ONE (07:37)
[2016-10-18] MEDS: POLYVINYL ALCOHOL 15 ML BOTTLE EACHEYE SCH ×4 (08:06→21:14)
[2016-10-18] MEDS: PROSOURCE / PROSTAT (PYXIS) 30 ML UDC PO SCH ×3 (08:15→17:19)
[2016-10-18] MEDS: ASCORBIC ACID 500 MG TABLET PO SCH (08:15)
[2016-10-18] MEDS: MINERAL OIL/PETROL OINT 396 GM JAR TP SCH ×2 (08:15→21:15)
[2016-10-18] MEDS: DOCUSATE SODIUM 100 MG CAPSULE PO SCH (08:15)
[2016-10-18] MEDS: ZINC OXIDE 56.7 GM TUBE TP SCH ×2 (08:15→21:15)
[2016-10-18] MEDS: VIT B CMPLX 3/FA/VIT C/BIOTIN 1 TAB TABLET PO SCH (08:15)
[2016-10-18] MEDS: HYDROGEN PEROXIDE 480 ML BOTTLE TP SCH ×2 (08:15→21:15)
[2016-10-18] MEDS: SITAGLIPTIN PHOSPHATE 25 MG TABLET PO SCH (08:15)
[2016-10-18] MEDS: SERTRALINE HCL 25 MG TABLET PO SCH (08:15)
[2016-10-18] MEDS: HEPARIN SODIUM, PORCINE 5000 UNITS/1 ML VIAL SQ SCH ×2 (08:15→21:15)
[2016-10-18] MEDS: BUDESONIDE RESPULE INH 0.5 MG/2 ML AMPUL.NEB IH SCH ×2 (08:21→20:21)
[2016-10-18] MEDS: GUAIFENESIN/D-METHORPHAN HB 5 ML UDC PO PRN ×2 (11:49→21:16)
[2016-10-18] MEDS: INSULIN LISPRO/ASPART 100 UNIT/ML CARTRIDGE SQ PRN (12:14)
[2016-10-18 19:59] VITALS: BP 138/92
[2016-10-18] MEDS: TEMAZEPAM 15 MG CAPSULE PO SCH (21:15)
[2016-10-18] MEDS: MONTELUKAST SODIUM (10MG) 10 MG TABLET PO SCH (21:15)
[2016-10-18] MEDS: GABAPENTIN 100 MG CAPSULE PO SCH (21:15)
[2016-10-18] MEDS: NAPROXEN 500 MG TABLET PO PRN (21:16)
[2016-10-19] MEDS: IPRATROPIUM NEB FS 0.5 MG/2.5 ML AMPUL.NEB IH SCH ×4 (02:00→19:10)
[2016-10-19] MEDS: ALBUTEROL FS 2.5 MG/3 ML VIAL.NEB NEB SCH ×4 (02:00→19:10)
[2016-10-19] MEDS: PANTOPRAZOLE 40 MG TABLET.DR PO SCH (06:09)
[2016-10-19] MEDS: BLOOD SUGAR DIAGNOSTIC 1 EACH STRIP VI SCH ×3 (06:50→17:37)
[2016-10-19] MEDS: INSULIN LISPRO/ASPART 100 UNIT/ML CARTRIDGE SQ PRN (06:51)
[2016-10-19] MEDS ORDERED: DOCUSATE SODIUM 100 MG CAPSULE PO ONE (07:39)
[2016-10-19] MEDS ORDERED: HEPARIN SODIUM, PORCINE 5000 UNITS/1 ML VIAL ONE (07:40)
[2016-10-19 07:41] VITALS: BP 123/85
[2016-10-19] MEDS ORDERED: VIT B CMPLX 3/FA/VIT C/BIOTIN 1 TAB TABLET ONE (07:42)
[2016-10-19] MEDS: BUDESONIDE RESPULE INH 0.5 MG/2 ML AMPUL.NEB IH SCH ×2 (08:23→21:29)
[2016-10-19] MEDS: POLYVINYL ALCOHOL 15 ML BOTTLE EACHEYE SCH ×4 (08:28→21:20)
[2016-10-19] MEDS: SERTRALINE HCL 25 MG TABLET PO SCH (08:28)
[2016-10-19] MEDS: ATARAX 25 MG PO PRN (08:28)
[2016-10-19] MEDS: SITAGLIPTIN PHOSPHATE 25 MG TABLET PO SCH (08:28)
[2016-10-19] MEDS: VIT B CMPLX 3/FA/VIT C/BIOTIN 1 TAB TABLET PO SCH (08:28)
[2016-10-19] MEDS: NAPROXEN 500 MG TABLET PO PRN (08:28)
[2016-10-19] MEDS: GUAIFENESIN/D-METHORPHAN HB 5 ML UDC PO PRN ×2 (08:28→21:21)
[2016-10-19] MEDS: DOCUSATE SODIUM 100 MG CAPSULE PO SCH (08:28)
[2016-10-19] MEDS: ASCORBIC ACID 500 MG TABLET PO SCH (08:28)
[2016-10-19] MEDS: PROSOURCE / PROSTAT (PYXIS) 30 ML UDC PO SCH ×3 (08:28→17:00)
[2016-10-19] MEDS: MINERAL OIL/PETROL OINT 396 GM JAR TP SCH ×2 (08:29→21:20)
[2016-10-19] MEDS: HEPARIN SODIUM, PORCINE 5000 UNITS/1 ML VIAL SQ SCH ×2 (08:29→21:20)
[2016-10-19] MEDS: ZINC OXIDE 56.7 GM TUBE TP SCH ×2 (15:45→21:21)
[2016-10-19] MEDS: HYDROGEN PEROXIDE 480 ML BOTTLE TP SCH ×2 (15:45→21:21)
[2016-10-19 20:01] VITALS: BP 139/92
[2016-10-19] MEDS: TEMAZEPAM 15 MG CAPSULE PO SCH (21:21)
[2016-10-19] MEDS: GABAPENTIN 100 MG CAPSULE PO SCH (21:21)
[2016-10-19] MEDS: MONTELUKAST SODIUM (10MG) 10 MG TABLET PO SCH (21:21)
[2016-10-20] MEDS: ALBUTEROL FS 2.5 MG/3 ML VIAL.NEB NEB SCH ×4 (02:01→20:07)
[2016-10-20] MEDS: IPRATROPIUM NEB FS 0.5 MG/2.5 ML AMPUL.NEB IH SCH ×4 (02:01→20:07)
[2016-10-20] MEDS: PANTOPRAZOLE 40 MG TABLET.DR PO SCH (06:29)
[2016-10-20] MEDS: BLOOD SUGAR DIAGNOSTIC 1 EACH STRIP VI SCH ×3 (06:35→17:30)
[2016-10-20] MEDS: INSULIN LISPRO/ASPART 100 UNIT/ML CARTRIDGE SQ PRN ×2 (06:36→12:07)
[2016-10-20 08:00] VITALS: BP 126/82
[2016-10-20] MEDS: BUDESONIDE RESPULE INH 0.5 MG/2 ML AMPUL.NEB IH SCH ×2 (08:14→20:25)
[2016-10-20] MEDS: POLYVINYL ALCOHOL 15 ML BOTTLE EACHEYE SCH ×4 (08:54→21:53)
[2016-10-20] MEDS: SITAGLIPTIN PHOSPHATE 25 MG TABLET PO SCH (08:55)
[2016-10-20] MEDS: PROSOURCE / PROSTAT (PYXIS) 30 ML UDC PO SCH ×3 (08:55→17:00)
[2016-10-20] MEDS: HEPARIN SODIUM, PORCINE 5000 UNITS/1 ML VIAL SQ SCH ×2 (08:55→21:54)
[2016-10-20] MEDS: DOCUSATE SODIUM 100 MG CAPSULE PO SCH (08:55)
[2016-10-20] MEDS: SERTRALINE HCL 25 MG TABLET PO SCH (08:55)
[2016-10-20] MEDS: VIT B CMPLX 3/FA/VIT C/BIOTIN 1 TAB TABLET PO SCH (08:55)
[2016-10-20] MEDS: ASCORBIC ACID 500 MG TABLET PO SCH (08:55)
[2016-10-20] MEDS: MINERAL OIL/PETROL OINT 396 GM JAR TP SCH ×2 (08:56→21:54)
[2016-10-20] MEDS: HYDROGEN PEROXIDE 480 ML BOTTLE TP SCH ×2 (08:56→21:54)
[2016-10-20] MEDS: GUAIFENESIN/D-METHORPHAN HB 5 ML UDC PO PRN ×2 (08:57→21:54)
[2016-10-20] MEDS: ZINC OXIDE 56.7 GM TUBE TP SCH ×2 (08:57→21:54)
[2016-10-20 20:00] VITALS: BP 130/92
[2016-10-20] MEDS: MONTELUKAST SODIUM (10MG) 10 MG TABLET PO SCH (21:54)
[2016-10-20] MEDS: GABAPENTIN 100 MG CAPSULE PO SCH (21:54)
[2016-10-20] MEDS: TEMAZEPAM 15 MG CAPSULE PO SCH (21:54)
[2016-10-20] MEDS: TRAMADOL HCL 50 MG TABLET PO PRN (21:55)
[2016-10-21] MEDS: ALBUTEROL FS 2.5 MG/3 ML VIAL.NEB NEB SCH ×4 (02:04→19:33)
[2016-10-21] MEDS: IPRATROPIUM NEB FS 0.5 MG/2.5 ML AMPUL.NEB IH SCH ×4 (02:04→19:33)
[2016-10-21] MEDS: PANTOPRAZOLE 40 MG TABLET.DR PO SCH (05:33)
[2016-10-21] MEDS: BLOOD SUGAR DIAGNOSTIC 1 EACH STRIP VI SCH ×3 (06:54→17:30)
[2016-10-21 07:53] VITALS: BP 127/85
[2016-10-21] MEDS: BUDESONIDE RESPULE INH 0.5 MG/2 ML AMPUL.NEB IH SCH ×2 (07:56→20:04)
[2016-10-21] MEDS: SITAGLIPTIN PHOSPHATE 25 MG TABLET PO SCH (09:56)
[2016-10-21] MEDS: DOCUSATE SODIUM 100 MG CAPSULE PO SCH (09:56)
[2016-10-21] MEDS: VIT B CMPLX 3/FA/VIT C/BIOTIN 1 TAB TABLET PO SCH (09:56)
[2016-10-21] MEDS: POLYVINYL ALCOHOL 15 ML BOTTLE EACHEYE SCH ×4 (09:56→21:33)
[2016-10-21] MEDS: HEPARIN SODIUM, PORCINE 5000 UNITS/1 ML VIAL SQ SCH ×2 (09:57→21:34)
[2016-10-21] MEDS: ZINC OXIDE 56.7 GM TUBE TP SCH ×2 (09:57→21:34)
[2016-10-21] MEDS: SERTRALINE HCL 25 MG TABLET PO SCH (09:57)
[2016-10-21] MEDS: ASCORBIC ACID 500 MG TABLET PO SCH (09:57)
[2016-10-21] MEDS: HYDROGEN PEROXIDE 480 ML BOTTLE TP SCH ×2 (09:57→21:34)
[2016-10-21] MEDS: PROSOURCE / PROSTAT (PYXIS) 30 ML UDC PO SCH ×3 (09:57→17:43)
[2016-10-21] MEDS: MINERAL OIL/PETROL OINT 396 GM JAR TP SCH ×2 (09:57→21:34)
[2016-10-21] MEDS: GUAIFENESIN/D-METHORPHAN HB 5 ML UDC PO PRN ×2 (10:07→21:35)
[2016-10-21] MEDS: INSULIN LISPRO/ASPART 100 UNIT/ML CARTRIDGE SQ PRN ×2 (12:51→18:34)
--- NOTE | 2016-10-21 18:36 | NUR ---
Pt's blood sugar was 53. Pt awake and responsive, no change in mental or cognitive status. Offered D50 as ordered but pt refused. He was eating his dinner and instead requested for orange juice. Rechecked blood sugar and it went up to 95.
[2016-10-21 19:50] VITALS: BP 148/58
[2016-10-21] MEDS: MONTELUKAST SODIUM (10MG) 10 MG TABLET PO SCH (21:34)
[2016-10-21] MEDS: GABAPENTIN 100 MG CAPSULE PO SCH (21:34)
[2016-10-21] MEDS: TEMAZEPAM 15 MG CAPSULE PO SCH (21:34)
[2016-10-22] MEDS: IPRATROPIUM NEB FS 0.5 MG/2.5 ML AMPUL.NEB IH SCH ×4 (02:29→20:36)
[2016-10-22] MEDS: ALBUTEROL FS 2.5 MG/3 ML VIAL.NEB NEB SCH ×4 (02:29→20:36)
[2016-10-22] MEDS: PANTOPRAZOLE 40 MG TABLET.DR PO SCH (05:54)
[2016-10-22 08:12] VITALS: BP 126/84
[2016-10-22] MEDS: BLOOD SUGAR DIAGNOSTIC 1 EACH STRIP VI SCH ×3 (08:39→17:08)
[2016-10-22] MEDS: DOCUSATE SODIUM 100 MG CAPSULE PO SCH (08:40)
[2016-10-22] MEDS: SERTRALINE HCL 25 MG TABLET PO SCH (08:40)
[2016-10-22] MEDS: ASCORBIC ACID 500 MG TABLET PO SCH (08:40)
[2016-10-22] MEDS: ZINC OXIDE 56.7 GM TUBE TP SCH ×2 (08:40→21:22)
[2016-10-22] MEDS: VIT B CMPLX 3/FA/VIT C/BIOTIN 1 TAB TABLET PO SCH (08:40)
[2016-10-22] MEDS: MINERAL OIL/PETROL OINT 396 GM JAR TP SCH ×2 (08:40→21:21)
[2016-10-22] MEDS: POLYVINYL ALCOHOL 15 ML BOTTLE EACHEYE SCH ×4 (08:40→21:21)
[2016-10-22] MEDS: PROSOURCE / PROSTAT (PYXIS) 30 ML UDC PO SCH ×3 (08:40→16:32)
[2016-10-22] MEDS: HYDROGEN PEROXIDE 480 ML BOTTLE TP SCH ×2 (08:40→21:21)
[2016-10-22] MEDS: HEPARIN SODIUM, PORCINE 5000 UNITS/1 ML VIAL SQ SCH ×2 (08:42→21:21)
[2016-10-22] MEDS: SITAGLIPTIN PHOSPHATE 25 MG TABLET PO SCH (08:43)
[2016-10-22] MEDS: TRAMADOL HCL 50 MG TABLET PO PRN ×2 (08:46→21:22)
[2016-10-22] MEDS: BUDESONIDE RESPULE INH 0.5 MG/2 ML AMPUL.NEB IH SCH (08:51)
--- NOTE | 2016-10-22 09:18 | NUR ---
AM RN NOTE Pt awake, BS 86mg/dl. Hannah held. Pt left to dialysis center at this time via [facility] as accompanied by EMT's.
--- NOTE | 2016-10-22 13:50 | NUR ---
AM RN NOTE Patient came back from dialysis center as accompanied by EMT's via [facility]. Pt awake, V/S obtained. BP132/73 T97.5 P74 R16 PA0/10. HD cath on RCW covered with dressing, intact. Will continue to monitor.
[2016-10-22] MEDS ORDERED: SORBITOL SOLUTION 30 ML PO PRN (16:30)
[2016-10-22] MEDS ORDERED: BACLOFEN (10 MG) 10 MG TABLET PO PRN (16:30)
[2016-10-22] MEDS ORDERED: HYDROGEN PEROXIDE 480 ML BOTTLE TP PRN (16:30)
[2016-10-22] MEDS ORDERED: BUDESONIDE RESPULE INH 0.5 MG/2 ML AMPUL.NEB IH PRN (16:30)
[2016-10-22] MEDS ORDERED: DEXTROSE 50%-WATER 50 ML DISP.SYRIN IVP PRN (16:30)
[2016-10-22] MEDS ORDERED: GLUCAGON,HUMAN RECOMBINANT 1 MG/VIAL VIAL IM PRN (16:30)
--- NOTE | 2016-10-22 16:33 | NUR ---
AM RN NOTE Pt refused Prostat and Artificial eye drops, offered x3.
[2016-10-22 19:37] VITALS: BP 141/77
[2016-10-22] MEDS: GUAIFENESIN/D-METHORPHAN HB 5 ML UDC PO PRN (21:22)
[2016-10-22] MEDS: TEMAZEPAM 15 MG CAPSULE PO SCH (21:22)
[2016-10-22] MEDS: GABAPENTIN 100 MG CAPSULE PO SCH (21:22)
[2016-10-22] MEDS: MONTELUKAST SODIUM (10MG) 10 MG TABLET PO SCH (21:22)
[2016-10-23] MEDS: ALBUTEROL FS 2.5 MG/3 ML VIAL.NEB NEB SCH ×4 (01:41→20:13)
[2016-10-23] MEDS: IPRATROPIUM NEB FS 0.5 MG/2.5 ML AMPUL.NEB IH SCH ×4 (01:41→20:13)
[2016-10-23] MEDS: PANTOPRAZOLE 40 MG TABLET.DR PO SCH (05:41)
[2016-10-23] MEDS: BLOOD SUGAR DIAGNOSTIC 1 EACH STRIP VI SCH ×3 (06:43→17:14)
[2016-10-23 07:59] VITALS: BP 127/79
[2016-10-23] MEDS: BUDESONIDE RESPULE INH 0.5 MG/2 ML AMPUL.NEB IH SCH ×2 (08:43→20:13)
[2016-10-23] MEDS: MINERAL OIL/PETROL OINT 396 GM JAR TP SCH ×2 (09:00→21:09)
[2016-10-23] MEDS: PROSOURCE / PROSTAT (PYXIS) 30 ML UDC PO SCH ×3 (09:09→17:00)
[2016-10-23] MEDS: DOCUSATE SODIUM 100 MG CAPSULE PO SCH (09:09)
[2016-10-23] MEDS: SITAGLIPTIN PHOSPHATE 25 MG TABLET PO SCH (09:09)
[2016-10-23] MEDS: SERTRALINE HCL 25 MG TABLET PO SCH (09:09)
[2016-10-23] MEDS: ASCORBIC ACID 500 MG TABLET PO SCH (09:09)
[2016-10-23] MEDS: VIT B CMPLX 3/FA/VIT C/BIOTIN 1 TAB TABLET PO SCH (09:09)
[2016-10-23] MEDS: HEPARIN SODIUM, PORCINE 5000 UNITS/1 ML VIAL SQ SCH ×2 (09:09→21:09)
[2016-10-23] MEDS: POLYVINYL ALCOHOL 15 ML BOTTLE EACHEYE SCH ×4 (09:09→21:09)
[2016-10-23] MEDS: GUAIFENESIN/D-METHORPHAN HB 5 ML UDC PO PRN ×2 (09:10→21:10)
[2016-10-23] MEDS: INSULIN LISPRO/ASPART 100 UNIT/ML CARTRIDGE SQ PRN ×2 (12:52→17:15)
[2016-10-23] MEDS: ZINC OXIDE 56.7 GM TUBE TP SCH ×2 (16:00→21:09)
[2016-10-23] MEDS: HYDROGEN PEROXIDE 480 ML BOTTLE TP SCH ×2 (16:00→21:09)
[2016-10-23 19:41] VITALS: BP 139/99
[2016-10-23] MEDS: GABAPENTIN 100 MG CAPSULE PO SCH (21:09)
[2016-10-23] MEDS: TEMAZEPAM 15 MG CAPSULE PO SCH (21:09)
[2016-10-23] MEDS: MONTELUKAST SODIUM (10MG) 10 MG TABLET PO SCH (21:09)
[2016-10-23] MEDS: NAPROXEN 500 MG TABLET PO PRN (21:10)
[2016-10-24] MEDS: ALBUTEROL FS 2.5 MG/3 ML VIAL.NEB NEB SCH ×4 (02:02→19:44)
[2016-10-24] MEDS: IPRATROPIUM NEB FS 0.5 MG/2.5 ML AMPUL.NEB IH SCH ×4 (02:02→19:44)
[2016-10-24] MEDS: PANTOPRAZOLE 40 MG TABLET.DR PO SCH (06:05)
[2016-10-24] MEDS: BLOOD SUGAR DIAGNOSTIC 1 EACH STRIP VI SCH ×3 (06:43→17:00)
[2016-10-24] MEDS: INSULIN LISPRO/ASPART 100 UNIT/ML CARTRIDGE SQ PRN (06:44)
[2016-10-24 07:34] VITALS: BP 132/91
[2016-10-24] MEDS: ASCORBIC ACID 500 MG TABLET PO SCH (08:27)
[2016-10-24] MEDS: SITAGLIPTIN PHOSPHATE 25 MG TABLET PO SCH (08:27)
[2016-10-24] MEDS: SERTRALINE HCL 25 MG TABLET PO SCH (08:27)
[2016-10-24] MEDS: PROSOURCE / PROSTAT (PYXIS) 30 ML UDC PO SCH ×3 (08:27→16:51)
[2016-10-24] MEDS: HYDROGEN PEROXIDE 480 ML BOTTLE TP SCH ×2 (08:27→20:08)
[2016-10-24] MEDS: ZINC OXIDE 56.7 GM TUBE TP SCH ×2 (08:28→20:08)
[2016-10-24] MEDS: MINERAL OIL/PETROL OINT 396 GM JAR TP SCH ×2 (08:28→20:08)
[2016-10-24] MEDS: POLYVINYL ALCOHOL 15 ML BOTTLE EACHEYE SCH ×4 (08:28→20:07)
[2016-10-24] MEDS: BUDESONIDE RESPULE INH 0.5 MG/2 ML AMPUL.NEB IH SCH ×2 (08:29→21:00)
[2016-10-24] MEDS: VIT B CMPLX 3/FA/VIT C/BIOTIN 1 TAB TABLET PO SCH (08:37)
[2016-10-24] MEDS: DOCUSATE SODIUM 100 MG CAPSULE PO SCH (08:37)
[2016-10-24] MEDS: HEPARIN SODIUM, PORCINE 5000 UNITS/1 ML VIAL SQ SCH ×2 (08:38→20:08)
[2016-10-24] MEDS: GUAIFENESIN/D-METHORPHAN HB 5 ML UDC PO PRN ×2 (08:41→20:11)
[2016-10-24] MEDS: TRAMADOL HCL 50 MG TABLET PO PRN (14:46)
[2016-10-24 20:08] VITALS: BP 136/90
[2016-10-24] MEDS: NAPROXEN 500 MG TABLET PO PRN (20:11)
[2016-10-24] MEDS: GABAPENTIN 100 MG CAPSULE PO SCH (21:48)
[2016-10-24] MEDS: TEMAZEPAM 15 MG CAPSULE PO SCH (21:48)
[2016-10-24] MEDS: MONTELUKAST SODIUM (10MG) 10 MG TABLET PO SCH (21:49)
[2016-10-25] MEDS: IPRATROPIUM NEB FS 0.5 MG/2.5 ML AMPUL.NEB IH SCH ×4 (02:02→19:51)
[2016-10-25] MEDS: ALBUTEROL FS 2.5 MG/3 ML VIAL.NEB NEB SCH ×4 (02:02→19:51)
[2016-10-25] MEDS: PANTOPRAZOLE 40 MG TABLET.DR PO SCH (06:00)
[2016-10-25] MEDS: BLOOD SUGAR DIAGNOSTIC 1 EACH STRIP VI SCH ×3 (06:39→17:38)
[2016-10-25] MEDS: INSULIN LISPRO/ASPART 100 UNIT/ML CARTRIDGE SQ PRN ×3 (06:40→17:38)
[2016-10-25 08:16] VITALS: BP 139/88
[2016-10-25] MEDS: BUDESONIDE RESPULE INH 0.5 MG/2 ML AMPUL.NEB IH SCH ×2 (08:52→19:51)
[2016-10-25] MEDS: DOCUSATE SODIUM 100 MG CAPSULE PO SCH (09:00)
[2016-10-25] MEDS: ASCORBIC ACID 500 MG TABLET PO SCH (09:00)
[2016-10-25] MEDS: POLYVINYL ALCOHOL 15 ML BOTTLE EACHEYE SCH ×4 (09:00→21:21)
[2016-10-25] MEDS: VIT B CMPLX 3/FA/VIT C/BIOTIN 1 TAB TABLET PO SCH (09:00)
[2016-10-25] MEDS: SERTRALINE HCL 25 MG TABLET PO SCH (09:00)
[2016-10-25] MEDS: HYDROGEN PEROXIDE 480 ML BOTTLE TP SCH ×2 (09:00→21:21)
[2016-10-25] MEDS: HEPARIN SODIUM, PORCINE 5000 UNITS/1 ML VIAL SQ SCH ×2 (09:00→21:21)
[2016-10-25] MEDS: SITAGLIPTIN PHOSPHATE 25 MG TABLET PO SCH (09:00)
[2016-10-25] MEDS: PROSOURCE / PROSTAT (PYXIS) 30 ML UDC PO SCH ×3 (09:00→17:38)
[2016-10-25] MEDS: MINERAL OIL/PETROL OINT 396 GM JAR TP SCH ×2 (09:00→21:21)
[2016-10-25] MEDS: TRAMADOL HCL 50 MG TABLET PO PRN (10:10)
--- NOTE | 2016-10-25 15:15 | NUR ---
INTERDISCIPLINARY PLAN OF CARE CONFERENCE was held today. Resident's brother Aly invited but unable to attend. New orders were reviewed. Dr. Gardner and the interdisciplinary team reviewed the current plan of care in detail. Resident continues to attend dialysis 3x/week. No new orders were given.
--- NOTE | 2016-10-25 15:35 | NUR ---
RT ROUTINE TRACH CHANGE DONE. NO RESPIRATORY COMPLICATIONS NOTED AT THIS TIME. TRACH SECURE AND AIRWAY PATENT. SUCTIONED SMALL AMOUNTS OF THICK, HARRIS SECRETIONS NOTED. RN NOTIFIED AND AWARE. SPARE TRACH AND AMBU BAG AT HEAD OF BED. WILL CONTINUE TO MONITOR THE PATIENT FOR ANY CHANGE OF CONDITION.
[2016-10-25] MEDS: ZINC OXIDE 56.7 GM TUBE TP SCH ×2 (17:37→21:22)
[2016-10-25] MEDS: MONTELUKAST SODIUM (10MG) 10 MG TABLET PO SCH (21:22)
[2016-10-25] MEDS: NAPROXEN 500 MG TABLET PO PRN (21:22)
[2016-10-25] MEDS: TEMAZEPAM 15 MG CAPSULE PO SCH (21:22)
[2016-10-25] MEDS: GABAPENTIN 100 MG CAPSULE PO SCH (21:22)
[2016-10-25] MEDS: GUAIFENESIN/D-METHORPHAN HB 5 ML UDC PO PRN (21:23)
[2016-10-25 23:26] VITALS: BP 132/87
[2016-10-26] MEDS: ALBUTEROL FS 2.5 MG/3 ML VIAL.NEB NEB SCH ×4 (00:42→19:27)
[2016-10-26] MEDS: IPRATROPIUM NEB FS 0.5 MG/2.5 ML AMPUL.NEB IH SCH ×4 (00:42→19:27)
[2016-10-26] MEDS: PANTOPRAZOLE 40 MG TABLET.DR PO SCH (06:37)
[2016-10-26] MEDS: BLOOD SUGAR DIAGNOSTIC 1 EACH STRIP VI SCH ×3 (06:37→17:20)
[2016-10-26 07:44] VITALS: BP 137/87
[2016-10-26] MEDS: MINERAL OIL/PETROL OINT 396 GM JAR TP SCH ×2 (08:12→21:08)
[2016-10-26] MEDS: ASCORBIC ACID 500 MG TABLET PO SCH (08:12)
[2016-10-26] MEDS: VIT B CMPLX 3/FA/VIT C/BIOTIN 1 TAB TABLET PO SCH (08:12)
[2016-10-26] MEDS: SERTRALINE HCL 25 MG TABLET PO SCH (08:12)
[2016-10-26] MEDS: PROSOURCE / PROSTAT (PYXIS) 30 ML UDC PO SCH ×3 (08:12→17:00)
[2016-10-26] MEDS: HEPARIN SODIUM, PORCINE 5000 UNITS/1 ML VIAL SQ SCH ×2 (08:12→21:08)
[2016-10-26] MEDS: HYDROGEN PEROXIDE 480 ML BOTTLE TP SCH ×2 (08:12→21:08)
[2016-10-26] MEDS: DOCUSATE SODIUM 100 MG CAPSULE PO SCH (08:12)
[2016-10-26] MEDS: SITAGLIPTIN PHOSPHATE 25 MG TABLET PO SCH (08:12)
[2016-10-26] MEDS: POLYVINYL ALCOHOL 15 ML BOTTLE EACHEYE SCH ×4 (08:12→21:07)
[2016-10-26] MEDS: ZINC OXIDE 56.7 GM TUBE TP SCH ×2 (08:12→21:08)
[2016-10-26] MEDS: GUAIFENESIN/D-METHORPHAN HB 5 ML UDC PO PRN ×3 (08:16→23:52)
[2016-10-26] MEDS: BUDESONIDE RESPULE INH 0.5 MG/2 ML AMPUL.NEB IH SCH ×2 (08:38→20:28)
--- NOTE | 2016-10-26 10:00 | NUR ---
Patient left for dialysis in stable condition. Dr. Navarrete made rounds but patient just left for dialysis, he said that he will see patient at the dialysis center.
--- NOTE | 2016-10-26 14:00 | NUR ---
Returned back from dialysis, stable condition.
[2016-10-26 19:50] VITALS: BP 137/95
[2016-10-26] MEDS: TEMAZEPAM 15 MG CAPSULE PO SCH (21:08)
[2016-10-26] MEDS: MONTELUKAST SODIUM (10MG) 10 MG TABLET PO SCH (21:08)
[2016-10-26] MEDS: NAPROXEN 500 MG TABLET PO PRN (21:08)
[2016-10-26] MEDS: GABAPENTIN 100 MG CAPSULE PO SCH (21:08)
[2016-10-27] MEDS: IPRATROPIUM NEB FS 0.5 MG/2.5 ML AMPUL.NEB IH SCH ×4 (01:05→19:52)
[2016-10-27] MEDS: ALBUTEROL FS 2.5 MG/3 ML VIAL.NEB NEB SCH ×4 (01:05→19:52)
[2016-10-27] MEDS: BLOOD SUGAR DIAGNOSTIC 1 EACH STRIP VI SCH ×3 (06:34→17:21)
[2016-10-27] MEDS: PANTOPRAZOLE 40 MG TABLET.DR PO SCH (06:34)
[2016-10-27 08:00] VITALS: BP 144/92
[2016-10-27] MEDS: BUDESONIDE RESPULE INH 0.5 MG/2 ML AMPUL.NEB IH SCH ×2 (08:20→21:44)
[2016-10-27] MEDS: VIT B CMPLX 3/FA/VIT C/BIOTIN 1 TAB TABLET PO SCH (08:35)
[2016-10-27] MEDS: POLYVINYL ALCOHOL 15 ML BOTTLE EACHEYE SCH ×4 (08:35→21:11)
[2016-10-27] MEDS: DOCUSATE SODIUM 100 MG CAPSULE PO SCH (08:35)
[2016-10-27] MEDS: SERTRALINE HCL 25 MG TABLET PO SCH (08:36)
[2016-10-27] MEDS: ASCORBIC ACID 500 MG TABLET PO SCH (08:36)
[2016-10-27] MEDS: PROSOURCE / PROSTAT (PYXIS) 30 ML UDC PO SCH ×3 (08:36→16:52)
[2016-10-27] MEDS: SITAGLIPTIN PHOSPHATE 25 MG TABLET PO SCH (08:37)
[2016-10-27] MEDS: HEPARIN SODIUM, PORCINE 5000 UNITS/1 ML VIAL SQ SCH ×2 (08:38→21:11)
[2016-10-27] MEDS: HYDROGEN PEROXIDE 480 ML BOTTLE TP SCH ×2 (09:00→21:12)
[2016-10-27] MEDS: MINERAL OIL/PETROL OINT 396 GM JAR TP SCH ×2 (09:00→21:12)
[2016-10-27] MEDS: ZINC OXIDE 56.7 GM TUBE TP SCH ×2 (09:00→21:12)
[2016-10-27] MEDS: INSULIN LISPRO/ASPART 100 UNIT/ML CARTRIDGE SQ PRN (12:01)
[2016-10-27 20:07] VITALS: BP 139/98
[2016-10-27] MEDS: GUAIFENESIN/D-METHORPHAN HB 5 ML UDC PO PRN (20:47)
[2016-10-27] MEDS: TEMAZEPAM 15 MG CAPSULE PO SCH (21:12)
[2016-10-27] MEDS: MONTELUKAST SODIUM (10MG) 10 MG TABLET PO SCH (21:12)
[2016-10-27] MEDS: GABAPENTIN 100 MG CAPSULE PO SCH (21:12)
[2016-10-28] MEDS: ALBUTEROL FS 2.5 MG/3 ML VIAL.NEB NEB SCH ×4 (01:19→20:26)
[2016-10-28] MEDS: IPRATROPIUM NEB FS 0.5 MG/2.5 ML AMPUL.NEB IH SCH ×4 (01:19→20:26)
[2016-10-28] MEDS: PANTOPRAZOLE 40 MG TABLET.DR PO SCH (05:45)
[2016-10-28] MEDS: BLOOD SUGAR DIAGNOSTIC 1 EACH STRIP VI SCH ×3 (07:25→18:18)
[2016-10-28] MEDS: INSULIN LISPRO/ASPART 100 UNIT/ML CARTRIDGE SQ PRN ×3 (07:26→18:18)
[2016-10-28] MEDS: BUDESONIDE RESPULE INH 0.5 MG/2 ML AMPUL.NEB IH SCH ×2 (07:36→20:26)
[2016-10-28 08:00] VITALS: BP 125/62
[2016-10-28] MEDS: MINERAL OIL/PETROL OINT 396 GM JAR TP SCH ×2 (09:00→21:30)
[2016-10-28] MEDS: HYDROGEN PEROXIDE 480 ML BOTTLE TP SCH ×2 (09:00→21:30)
[2016-10-28] MEDS: ZINC OXIDE 56.7 GM TUBE TP SCH ×2 (09:00→21:30)
[2016-10-28] MEDS: SITAGLIPTIN PHOSPHATE 25 MG TABLET PO SCH (09:40)
[2016-10-28] MEDS: DOCUSATE SODIUM 100 MG CAPSULE PO SCH (09:40)
[2016-10-28] MEDS: POLYVINYL ALCOHOL 15 ML BOTTLE EACHEYE SCH ×4 (09:40→21:29)
[2016-10-28] MEDS: VIT B CMPLX 3/FA/VIT C/BIOTIN 1 TAB TABLET PO SCH (09:40)
[2016-10-28] MEDS: ASCORBIC ACID 500 MG TABLET PO SCH (09:41)
[2016-10-28] MEDS: HEPARIN SODIUM, PORCINE 5000 UNITS/1 ML VIAL SQ SCH ×2 (09:41→21:30)
[2016-10-28] MEDS: PROSOURCE / PROSTAT (PYXIS) 30 ML UDC PO SCH ×3 (09:41→17:52)
[2016-10-28] MEDS: SERTRALINE HCL 25 MG TABLET PO SCH (09:41)
[2016-10-28] MEDS: GUAIFENESIN/D-METHORPHAN HB 5 ML UDC PO PRN ×2 (09:45→21:31)
[2016-10-28 19:56] VITALS: BP 140/81
[2016-10-28] MEDS: MONTELUKAST SODIUM (10MG) 10 MG TABLET PO SCH (21:30)
[2016-10-28] MEDS: GABAPENTIN 100 MG CAPSULE PO SCH (21:30)
[2016-10-28] MEDS: TEMAZEPAM 15 MG CAPSULE PO SCH (21:30)
[2016-10-29] MEDS: ALBUTEROL FS 2.5 MG/3 ML VIAL.NEB NEB SCH ×4 (02:05→19:46)
[2016-10-29] MEDS: IPRATROPIUM NEB FS 0.5 MG/2.5 ML AMPUL.NEB IH SCH ×4 (02:05→19:46)
[2016-10-29] MEDS: PANTOPRAZOLE 40 MG TABLET.DR PO SCH (05:40)
[2016-10-29] MEDS: BLOOD SUGAR DIAGNOSTIC 1 EACH STRIP VI SCH ×3 (06:49→18:23)
[2016-10-29] MEDS: HEPARIN SODIUM, PORCINE 5000 UNITS/1 ML VIAL SQ SCH ×2 (08:13→21:26)
[2016-10-29] MEDS: DOCUSATE SODIUM 100 MG CAPSULE PO SCH (08:13)
[2016-10-29] MEDS: SITAGLIPTIN PHOSPHATE 25 MG TABLET PO SCH (08:13)
[2016-10-29] MEDS: ASCORBIC ACID 500 MG TABLET PO SCH (08:13)
[2016-10-29] MEDS: POLYVINYL ALCOHOL 15 ML BOTTLE EACHEYE SCH ×4 (08:13→21:26)
[2016-10-29] MEDS: VIT B CMPLX 3/FA/VIT C/BIOTIN 1 TAB TABLET PO SCH (08:13)
[2016-10-29] MEDS: SERTRALINE HCL 25 MG TABLET PO SCH (08:13)
[2016-10-29] MEDS: PROSOURCE / PROSTAT (PYXIS) 30 ML UDC PO SCH ×3 (08:13→17:00)
[2016-10-29] MEDS: BUDESONIDE RESPULE INH 0.5 MG/2 ML AMPUL.NEB IH SCH ×2 (08:19→20:14)
[2016-10-29] MEDS: GUAIFENESIN/D-METHORPHAN HB 5 ML UDC PO PRN (08:41)
[2016-10-29] MEDS: ZINC OXIDE 56.7 GM TUBE TP SCH ×2 (09:00→21:27)
[2016-10-29] MEDS: HYDROGEN PEROXIDE 480 ML BOTTLE TP SCH ×2 (09:00→21:27)
[2016-10-29] MEDS: MINERAL OIL/PETROL OINT 396 GM JAR TP SCH ×2 (09:00→21:26)
[2016-10-29] MEDS: INSULIN LISPRO/ASPART 100 UNIT/ML CARTRIDGE SQ PRN (18:23)
[2016-10-29 20:12] VITALS: BP 136/94
[2016-10-29] MEDS: MONTELUKAST SODIUM (10MG) 10 MG TABLET PO SCH (21:27)
[2016-10-29] MEDS: GABAPENTIN 100 MG CAPSULE PO SCH (21:27)
[2016-10-29] MEDS: TEMAZEPAM 15 MG CAPSULE PO SCH (21:27)
[2016-10-30] MEDS: IPRATROPIUM NEB FS 0.5 MG/2.5 ML AMPUL.NEB IH SCH ×4 (01:48→20:14)
[2016-10-30] MEDS: ALBUTEROL FS 2.5 MG/3 ML VIAL.NEB NEB SCH ×4 (01:48→20:14)
[2016-10-30] MEDS: BUDESONIDE RESPULE INH 0.5 MG/2 ML AMPUL.NEB IH SCH ×2 (08:11→20:34)
[2016-10-30] MEDS: POLYVINYL ALCOHOL 15 ML BOTTLE EACHEYE SCH ×4 (09:37→20:45)
[2016-10-30] MEDS: PROSOURCE / PROSTAT (PYXIS) 30 ML UDC PO SCH ×3 (09:38→16:53)
[2016-10-30] MEDS: ASCORBIC ACID 500 MG TABLET PO SCH (09:38)
[2016-10-30] MEDS: VIT B CMPLX 3/FA/VIT C/BIOTIN 1 TAB TABLET PO SCH (09:38)
[2016-10-30] MEDS: SERTRALINE HCL 25 MG TABLET PO SCH (09:38)
[2016-10-30] MEDS: HEPARIN SODIUM, PORCINE 5000 UNITS/1 ML VIAL SQ SCH ×2 (09:38→20:45)
[2016-10-30] MEDS: DOCUSATE SODIUM 100 MG CAPSULE PO SCH (09:38)
[2016-10-30] MEDS: MINERAL OIL/PETROL OINT 396 GM JAR TP SCH ×2 (09:38→21:50)
[2016-10-30] MEDS: SITAGLIPTIN PHOSPHATE 25 MG TABLET PO SCH (09:38)
[2016-10-30] MEDS: GUAIFENESIN/D-METHORPHAN HB 5 ML UDC PO PRN ×2 (09:41→20:49)
[2016-10-30 09:51] VITALS: BP 136/94
[2016-10-30] MEDS: BLOOD SUGAR DIAGNOSTIC 1 EACH STRIP VI SCH ×2 (12:31→16:53)
[2016-10-30] MEDS: INSULIN LISPRO/ASPART 100 UNIT/ML CARTRIDGE SQ PRN ×2 (12:32→16:54)
--- NOTE | 2016-10-30 14:20 | NUR ---
SARITA FROM [employer] WANT US TO PAGE DR ALLEY MOSQUERA TO RENEW ORDER FOR TRAMADOL BECAUSE THEY PAGED HIM BUT THEY WERE NOT ABLE TO GET IN CONTACT WITH HIM.
--- NOTE | 2016-10-30 14:25 | NUR ---
ROCCO MATTHEWS PAGED DR. MOSQUERA REGARDING TRAMADOL ORDER AND SHE WAS ABLE TO TALK TO MADDIE TAVERN OPERATOR AND SHE SAID THAT SHE WILL TAKE CARE OF THAT.
[2016-10-30] MEDS: HYDROGEN PEROXIDE 480 ML BOTTLE TP SCH ×2 (16:53→21:50)
[2016-10-30] MEDS: ZINC OXIDE 56.7 GM TUBE TP SCH ×2 (16:53→21:50)
[2016-10-30 19:38] VITALS: BP 148/80
[2016-10-30] MEDS: NAPROXEN 500 MG TABLET PO PRN (20:49)
[2016-10-30] MEDS: MONTELUKAST SODIUM (10MG) 10 MG TABLET PO SCH (21:50)
[2016-10-30] MEDS: GABAPENTIN 100 MG CAPSULE PO SCH (21:50)
[2016-10-30] MEDS: TEMAZEPAM 15 MG CAPSULE PO SCH (21:50)
[2016-10-30] MEDS: ATARAX 25 MG PO PRN (21:52)
[2016-10-31] MEDS: ALBUTEROL FS 2.5 MG/3 ML VIAL.NEB NEB SCH ×4 (01:56→20:20)
[2016-10-31] MEDS: IPRATROPIUM NEB FS 0.5 MG/2.5 ML AMPUL.NEB IH SCH ×4 (01:56→20:20)
[2016-10-31] MEDS: PANTOPRAZOLE 40 MG TABLET.DR PO SCH (05:34)
[2016-10-31] MEDS: BLOOD SUGAR DIAGNOSTIC 1 EACH STRIP VI SCH ×3 (06:53→17:27)
[2016-10-31] MEDS: INSULIN LISPRO/ASPART 100 UNIT/ML CARTRIDGE SQ PRN ×2 (06:54→17:28)
[2016-10-31 07:57] VITALS: BP 139/91
[2016-10-31] MEDS: BUDESONIDE RESPULE INH 0.5 MG/2 ML AMPUL.NEB IH SCH ×2 (08:23→20:20)
[2016-10-31] MEDS: POLYVINYL ALCOHOL 15 ML BOTTLE EACHEYE SCH ×4 (09:04→21:00)
[2016-10-31] MEDS: SITAGLIPTIN PHOSPHATE 25 MG TABLET PO SCH (09:04)
[2016-10-31] MEDS: predniSONE 10 MG TABLET PO SCH (09:04)
[2016-10-31] MEDS: DOCUSATE SODIUM 100 MG CAPSULE PO SCH (09:04)
[2016-10-31] MEDS: VIT B CMPLX 3/FA/VIT C/BIOTIN 1 TAB TABLET PO SCH (09:04)
[2016-10-31] MEDS: PROSOURCE / PROSTAT (PYXIS) 30 ML UDC PO SCH ×3 (09:04→17:27)
[2016-10-31] MEDS: SERTRALINE HCL 25 MG TABLET PO SCH (09:04)
[2016-10-31] MEDS: ASCORBIC ACID 500 MG TABLET PO SCH (09:04)
[2016-10-31] MEDS: HYDROGEN PEROXIDE 480 ML BOTTLE TP SCH ×2 (09:05→21:00)
[2016-10-31] MEDS: HEPARIN SODIUM, PORCINE 5000 UNITS/1 ML VIAL SQ SCH ×2 (09:05→21:00)
[2016-10-31] MEDS: MINERAL OIL/PETROL OINT 396 GM JAR TP SCH ×2 (09:05→21:00)
[2016-10-31] MEDS: ZINC OXIDE 56.7 GM TUBE TP SCH ×2 (09:05→21:00)
--- NOTE | 2016-10-31 14:30 | NUR ---
Pt noted with open skin on posterior neck. MD notified and treatment order obtained, noted and carried out. Pt notified of treatment order.
[2016-10-31 19:47] VITALS: BP 151/85
[2016-10-31] MEDS: NEOMY SULF/BACITRAC ZN/POLY 15 GM TUBE TP SCH (21:00)
[2016-10-31] MEDS: TEMAZEPAM 15 MG CAPSULE PO SCH (22:02)
[2016-10-31] MEDS: GABAPENTIN 100 MG CAPSULE PO SCH (22:02)
[2016-10-31] MEDS: MONTELUKAST SODIUM (10MG) 10 MG TABLET PO SCH (22:02)
[2016-10-31] MEDS: GUAIFENESIN/D-METHORPHAN HB 5 ML UDC PO PRN (22:02)
[2016-10-31] MEDS: NAPROXEN 500 MG TABLET PO PRN (22:02)
[2016-11-01] MEDS: ALBUTEROL FS 2.5 MG/3 ML VIAL.NEB NEB SCH ×4 (01:02→19:20)
[2016-11-01] MEDS: IPRATROPIUM NEB FS 0.5 MG/2.5 ML AMPUL.NEB IH SCH ×4 (01:02→19:20)
[2016-11-01] MEDS: INSULIN LISPRO/ASPART 100 UNIT/ML CARTRIDGE SQ PRN ×3 (06:57→16:55)
[2016-11-01] MEDS: BLOOD SUGAR DIAGNOSTIC 1 EACH STRIP VI SCH ×3 (06:57→16:52)
[2016-11-01] MEDS: PANTOPRAZOLE 40 MG TABLET.DR PO SCH (06:57)
[2016-11-01 07:47] VITALS: BP 126/78
[2016-11-01] MEDS: BUDESONIDE RESPULE INH 0.5 MG/2 ML AMPUL.NEB IH SCH ×3 (08:03→20:39)
[2016-11-01] MEDS: POLYVINYL ALCOHOL 15 ML BOTTLE EACHEYE SCH ×4 (09:51→21:00)
[2016-11-01] MEDS: SITAGLIPTIN PHOSPHATE 25 MG TABLET PO SCH (09:51)
[2016-11-01] MEDS: SERTRALINE HCL 25 MG TABLET PO SCH (09:51)
[2016-11-01] MEDS: PROSOURCE / PROSTAT (PYXIS) 30 ML UDC PO SCH ×3 (09:51→16:52)
[2016-11-01] MEDS: DOCUSATE SODIUM 100 MG CAPSULE PO SCH (09:51)
[2016-11-01] MEDS: VIT B CMPLX 3/FA/VIT C/BIOTIN 1 TAB TABLET PO SCH (09:51)
[2016-11-01] MEDS: predniSONE 10 MG TABLET PO SCH (09:51)
[2016-11-01] MEDS: ASCORBIC ACID 500 MG TABLET PO SCH (09:51)
[2016-11-01] MEDS: MINERAL OIL/PETROL OINT 396 GM JAR TP SCH ×2 (09:52→21:09)
[2016-11-01] MEDS: NEOMY SULF/BACITRAC ZN/POLY 15 GM TUBE TP SCH ×2 (09:52→21:09)
[2016-11-01] MEDS: HEPARIN SODIUM, PORCINE 5000 UNITS/1 ML VIAL SQ SCH ×2 (09:52→21:01)
[2016-11-01] MEDS: HYDROGEN PEROXIDE 480 ML BOTTLE TP SCH ×2 (09:52→21:09)
[2016-11-01] MEDS: ZINC OXIDE 56.7 GM TUBE TP SCH ×2 (09:52→21:09)
[2016-11-01] MEDS: GUAIFENESIN/D-METHORPHAN HB 5 ML UDC PO PRN ×2 (14:13→21:03)
[2016-11-01 19:46] VITALS: BP 148/86
[2016-11-01] MEDS: MONTELUKAST SODIUM (10MG) 10 MG TABLET PO SCH (21:02)
[2016-11-01] MEDS: TEMAZEPAM 15 MG CAPSULE PO SCH (21:02)
[2016-11-01] MEDS: GABAPENTIN 100 MG CAPSULE PO SCH (21:02)
[2016-11-02] MEDS: IPRATROPIUM NEB FS 0.5 MG/2.5 ML AMPUL.NEB IH SCH ×5 (00:53→19:12)
[2016-11-02] MEDS: ALBUTEROL FS 2.5 MG/3 ML VIAL.NEB NEB SCH ×5 (00:53→19:12)
[2016-11-02] MEDS: PANTOPRAZOLE 40 MG TABLET.DR PO SCH (06:39)
[2016-11-02] MEDS: BLOOD SUGAR DIAGNOSTIC 1 EACH STRIP VI SCH ×3 (06:39→16:40)
[2016-11-02 07:40] VITALS: BP 134/90
[2016-11-02] MEDS: BUDESONIDE RESPULE INH 0.5 MG/2 ML AMPUL.NEB IH SCH ×2 (08:38→20:06)
[2016-11-02] MEDS: POLYVINYL ALCOHOL 15 ML BOTTLE EACHEYE SCH ×4 (09:00→21:17)
[2016-11-02] MEDS: SITAGLIPTIN PHOSPHATE 25 MG TABLET PO SCH (09:04)
[2016-11-02] MEDS: VIT B CMPLX 3/FA/VIT C/BIOTIN 1 TAB TABLET PO SCH (09:04)
[2016-11-02] MEDS: ASCORBIC ACID 500 MG TABLET PO SCH (09:04)
[2016-11-02] MEDS: predniSONE 10 MG TABLET PO SCH (09:04)
[2016-11-02] MEDS: SERTRALINE HCL 25 MG TABLET PO SCH (09:04)
[2016-11-02] MEDS: PROSOURCE / PROSTAT (PYXIS) 30 ML UDC PO SCH ×3 (09:04→16:40)
[2016-11-02] MEDS: DOCUSATE SODIUM 100 MG CAPSULE PO SCH (09:04)
[2016-11-02] MEDS: MINERAL OIL/PETROL OINT 396 GM JAR TP SCH ×2 (09:05→21:17)
[2016-11-02] MEDS: HEPARIN SODIUM, PORCINE 5000 UNITS/1 ML VIAL SQ SCH ×2 (09:05→21:17)
[2016-11-02] MEDS: HYDROGEN PEROXIDE 480 ML BOTTLE TP SCH ×2 (09:05→21:17)
[2016-11-02] MEDS: ZINC OXIDE 56.7 GM TUBE TP SCH ×2 (09:05→21:18)
[2016-11-02] MEDS: NEOMY SULF/BACITRAC ZN/POLY 15 GM TUBE TP SCH ×2 (09:05→21:18)
--- NOTE | 2016-11-02 09:18 | NUR ---
DIALYSIS TREATMENT TODAY, V/S TAKEN [facility] BP 124/71 P74 R18 TEMP 97.7. PATIENT LEFT HOSP VIA AMBULANCE IN STABLE CONDITION.
--- NOTE | 2016-11-02 14:00 | NUR ---
PATIENT IS BACK FROM DIALYSIS TREATMENT IN STABLE CONDITION. MADE COMFORTABLE IN BED, V/S BP 149/99 P83 R18 TEMP 97.7
[2016-11-02] MEDS: GUAIFENESIN/D-METHORPHAN HB 5 ML UDC PO PRN ×2 (14:18→22:37)
[2016-11-02] MEDS: INSULIN LISPRO/ASPART 100 UNIT/ML CARTRIDGE SQ PRN (16:42)
[2016-11-02] MEDS: IPRATROPIUM NEB FS 0.5 MG/2.5 ML AMPUL.NEB NEB PRN (17:22)
[2016-11-02] MEDS: ALBUTEROL FS 2.5 MG/3 ML VIAL.NEB NEB PRN (17:22)
[2016-11-02 19:53] VITALS: BP 156/75
[2016-11-02] MEDS: MONTELUKAST SODIUM (10MG) 10 MG TABLET PO SCH (21:18)
[2016-11-02] MEDS: TEMAZEPAM 15 MG CAPSULE PO SCH (21:18)
[2016-11-02] MEDS: GABAPENTIN 100 MG CAPSULE PO SCH (21:18)
[2016-11-02] MEDS: NAPROXEN 500 MG TABLET PO PRN (22:37)
[2016-11-02] MEDS: ATARAX 25 MG PO PRN (23:40)
[2016-11-03] MEDS: IPRATROPIUM NEB FS 0.5 MG/2.5 ML AMPUL.NEB IH SCH ×4 (01:40→19:30)
[2016-11-03] MEDS: ALBUTEROL FS 2.5 MG/3 ML VIAL.NEB NEB SCH ×4 (01:40→19:30)
[2016-11-03] MEDS: PANTOPRAZOLE 40 MG TABLET.DR PO SCH (05:39)
[2016-11-03] MEDS: BLOOD SUGAR DIAGNOSTIC 1 EACH STRIP VI SCH ×3 (06:57→17:18)
[2016-11-03] MEDS: INSULIN LISPRO/ASPART 100 UNIT/ML CARTRIDGE SQ PRN ×3 (06:58→17:19)
[2016-11-03 07:54] VITALS: BP 149/100
[2016-11-03] MEDS: BUDESONIDE RESPULE INH 0.5 MG/2 ML AMPUL.NEB IH SCH ×2 (08:46→20:41)
[2016-11-03] MEDS: NEOMY SULF/BACITRAC ZN/POLY 15 GM TUBE TP SCH ×2 (09:00→21:01)
[2016-11-03] MEDS: SERTRALINE HCL 25 MG TABLET PO SCH (09:00)
[2016-11-03] MEDS: ASCORBIC ACID 500 MG TABLET PO SCH (09:00)
[2016-11-03] MEDS: DOCUSATE SODIUM 100 MG CAPSULE PO SCH (09:00)
[2016-11-03] MEDS: GUAIFENESIN/D-METHORPHAN HB 5 ML UDC PO PRN (09:00)
[2016-11-03] MEDS: NAPROXEN 500 MG TABLET PO PRN (09:00)
[2016-11-03] MEDS: VIT B CMPLX 3/FA/VIT C/BIOTIN 1 TAB TABLET PO SCH (09:00)
[2016-11-03] MEDS: HYDROGEN PEROXIDE 480 ML BOTTLE TP SCH ×2 (09:00→21:01)
[2016-11-03] MEDS: POLYVINYL ALCOHOL 15 ML BOTTLE EACHEYE SCH ×4 (09:00→21:00)
[2016-11-03] MEDS: HEPARIN SODIUM, PORCINE 5000 UNITS/1 ML VIAL SQ SCH ×2 (09:00→21:01)
[2016-11-03] MEDS: ZINC OXIDE 56.7 GM TUBE TP SCH ×2 (09:00→21:01)
[2016-11-03] MEDS: SITAGLIPTIN PHOSPHATE 25 MG TABLET PO SCH (09:00)
[2016-11-03] MEDS: predniSONE 10 MG TABLET PO SCH (09:00)
[2016-11-03] MEDS: MINERAL OIL/PETROL OINT 396 GM JAR TP SCH ×2 (09:00→21:01)
[2016-11-03] MEDS: PROSOURCE / PROSTAT (PYXIS) 30 ML UDC PO SCH ×3 (09:00→17:18)
[2016-11-03] MEDS: ALBUTEROL FS 2.5 MG/3 ML VIAL.NEB NEB PRN (15:21)
[2016-11-03 19:44] VITALS: BP 146/95
[2016-11-03] MEDS: GABAPENTIN 100 MG CAPSULE PO SCH (21:41)
[2016-11-03] MEDS: MONTELUKAST SODIUM (10MG) 10 MG TABLET PO SCH (21:42)
[2016-11-03] MEDS: TEMAZEPAM 15 MG CAPSULE PO SCH (21:42)
[2016-11-04] MEDS: ALBUTEROL FS 2.5 MG/3 ML VIAL.NEB NEB SCH ×4 (02:07→19:27)
[2016-11-04] MEDS: IPRATROPIUM NEB FS 0.5 MG/2.5 ML AMPUL.NEB IH SCH ×4 (02:07→19:27)
[2016-11-04] MEDS: PANTOPRAZOLE 40 MG TABLET.DR PO SCH (06:18)
[2016-11-04] MEDS: BLOOD SUGAR DIAGNOSTIC 1 EACH STRIP VI SCH ×3 (06:35→17:30)
[2016-11-04 08:02] VITALS: BP 146/91
[2016-11-04] MEDS: BUDESONIDE RESPULE INH 0.5 MG/2 ML AMPUL.NEB IH SCH ×2 (08:03→20:21)
[2016-11-04] MEDS: DOCUSATE SODIUM 100 MG CAPSULE PO SCH (08:24)
[2016-11-04] MEDS: POLYVINYL ALCOHOL 15 ML BOTTLE EACHEYE SCH ×4 (08:24→20:55)
[2016-11-04] MEDS: SITAGLIPTIN PHOSPHATE 25 MG TABLET PO SCH (08:24)
[2016-11-04] MEDS: VIT B CMPLX 3/FA/VIT C/BIOTIN 1 TAB TABLET PO SCH (08:24)
[2016-11-04] MEDS: predniSONE 10 MG TABLET PO SCH (08:24)
[2016-11-04] MEDS: ASCORBIC ACID 500 MG TABLET PO SCH (08:26)
[2016-11-04] MEDS: PROSOURCE / PROSTAT (PYXIS) 30 ML UDC PO SCH ×3 (08:26→17:30)
[2016-11-04] MEDS: SERTRALINE HCL 25 MG TABLET PO SCH (08:26)
[2016-11-04] MEDS: HYDROGEN PEROXIDE 480 ML BOTTLE TP SCH ×2 (08:27→20:55)
[2016-11-04] MEDS: HEPARIN SODIUM, PORCINE 5000 UNITS/1 ML VIAL SQ SCH ×2 (08:27→20:54)
[2016-11-04] MEDS: MINERAL OIL/PETROL OINT 396 GM JAR TP SCH ×2 (08:27→20:55)
[2016-11-04] MEDS: NEOMY SULF/BACITRAC ZN/POLY 15 GM TUBE TP SCH ×2 (08:28→20:55)
[2016-11-04] MEDS: ZINC OXIDE 56.7 GM TUBE TP SCH ×2 (08:28→20:55)
[2016-11-04] MEDS: GUAIFENESIN/D-METHORPHAN HB 5 ML UDC PO PRN ×2 (14:28→20:55)
[2016-11-04] MEDS: INSULIN LISPRO/ASPART 100 UNIT/ML CARTRIDGE SQ PRN ×2 (14:30→17:31)
[2016-11-04 19:54] VITALS: BP 156/96
[2016-11-04] MEDS: NAPROXEN 500 MG TABLET PO PRN (20:55)
[2016-11-04] MEDS: GABAPENTIN 100 MG CAPSULE PO SCH (21:17)
[2016-11-04] MEDS: TEMAZEPAM 15 MG CAPSULE PO SCH (21:18)
[2016-11-04] MEDS: MONTELUKAST SODIUM (10MG) 10 MG TABLET PO SCH (21:18)
[2016-11-05] MEDS: ALBUTEROL FS 2.5 MG/3 ML VIAL.NEB NEB SCH ×4 (01:19→19:22)
[2016-11-05] MEDS: IPRATROPIUM NEB FS 0.5 MG/2.5 ML AMPUL.NEB IH SCH ×4 (01:19→19:22)
[2016-11-05] MEDS: PANTOPRAZOLE 40 MG TABLET.DR PO SCH (06:08)
[2016-11-05] MEDS: BLOOD SUGAR DIAGNOSTIC 1 EACH STRIP VI SCH ×3 (07:15→18:12)
[2016-11-05 07:43] VITALS: BP 153/90
[2016-11-05] MEDS: BUDESONIDE RESPULE INH 0.5 MG/2 ML AMPUL.NEB IH SCH ×2 (08:09→20:03)
[2016-11-05] MEDS: SERTRALINE HCL 25 MG TABLET PO SCH (08:31)
[2016-11-05] MEDS: PROSOURCE / PROSTAT (PYXIS) 30 ML UDC PO SCH ×3 (08:31→17:43)
[2016-11-05] MEDS: SITAGLIPTIN PHOSPHATE 25 MG TABLET PO SCH (08:31)
[2016-11-05] MEDS: ASCORBIC ACID 500 MG TABLET PO SCH (08:31)
[2016-11-05] MEDS: VIT B CMPLX 3/FA/VIT C/BIOTIN 1 TAB TABLET PO SCH (08:31)
[2016-11-05] MEDS: POLYVINYL ALCOHOL 15 ML BOTTLE EACHEYE SCH ×4 (08:31→20:19)
[2016-11-05] MEDS: predniSONE 10 MG TABLET PO SCH (08:31)
[2016-11-05] MEDS: DOCUSATE SODIUM 100 MG CAPSULE PO SCH (08:31)
[2016-11-05] MEDS: HEPARIN SODIUM, PORCINE 5000 UNITS/1 ML VIAL SQ SCH ×2 (08:31→20:20)
[2016-11-05] MEDS: MINERAL OIL/PETROL OINT 396 GM JAR TP SCH ×2 (08:32→20:21)
[2016-11-05] MEDS: HYDROGEN PEROXIDE 480 ML BOTTLE TP SCH ×2 (09:00→20:21)
[2016-11-05] MEDS: NEOMY SULF/BACITRAC ZN/POLY 15 GM TUBE TP SCH ×2 (09:00→20:21)
[2016-11-05] MEDS: ZINC OXIDE 56.7 GM TUBE TP SCH ×2 (09:00→20:21)
--- NOTE | 2016-11-05 09:00 | NUR ---
Pt was seen and examined by Dr. Gardner. Notified him that pt was complaining of secretions and STEAM CLEANING MACHINE OPERATOR Radha Petty said to refer it to him. No new order. Pt does not have increased amount of secretions, but he seems to be bothered by having secretions and he frequently asks for suctioning.
[2016-11-05] MEDS: GUAIFENESIN/D-METHORPHAN HB 5 ML UDC PO PRN ×2 (09:48→20:23)
[2016-11-05] MEDS: ONDANSETRON 4 MG TAB.RAPDIS PO PRN ×3 (15:08→17:40)
[2016-11-05] MEDS: INSULIN LISPRO/ASPART 100 UNIT/ML CARTRIDGE SQ PRN (18:14)
[2016-11-05 20:04] VITALS: BP 143/96
[2016-11-05] MEDS: ATARAX 25 MG PO PRN (20:23)
[2016-11-05] MEDS: GABAPENTIN 100 MG CAPSULE PO SCH (22:14)
[2016-11-05] MEDS: MONTELUKAST SODIUM (10MG) 10 MG TABLET PO SCH (22:14)
[2016-11-05] MEDS: TEMAZEPAM 15 MG CAPSULE PO SCH (22:14)
[2016-11-06] MEDS: ALBUTEROL FS 2.5 MG/3 ML VIAL.NEB NEB SCH ×4 (01:27→20:18)
[2016-11-06] MEDS: IPRATROPIUM NEB FS 0.5 MG/2.5 ML AMPUL.NEB IH SCH ×4 (01:27→20:18)
[2016-11-06] MEDS: PANTOPRAZOLE 40 MG TABLET.DR PO SCH (05:38)
[2016-11-06] MEDS: BLOOD SUGAR DIAGNOSTIC 1 EACH STRIP VI SCH ×3 (06:35→17:18)
[2016-11-06 07:49] VITALS: BP 146/89
[2016-11-06] MEDS: POLYVINYL ALCOHOL 15 ML BOTTLE EACHEYE SCH ×4 (08:03→21:17)
[2016-11-06] MEDS: DOCUSATE SODIUM 100 MG CAPSULE PO SCH (08:03)
[2016-11-06] MEDS: VIT B CMPLX 3/FA/VIT C/BIOTIN 1 TAB TABLET PO SCH (08:03)
[2016-11-06] MEDS: SITAGLIPTIN PHOSPHATE 25 MG TABLET PO SCH (08:03)
[2016-11-06] MEDS: predniSONE 10 MG TABLET PO SCH (08:04)
[2016-11-06] MEDS: SERTRALINE HCL 25 MG TABLET PO SCH (08:04)
[2016-11-06] MEDS: ASCORBIC ACID 500 MG TABLET PO SCH (08:04)
[2016-11-06] MEDS: PROSOURCE / PROSTAT (PYXIS) 30 ML UDC PO SCH ×3 (08:04→17:18)
[2016-11-06] MEDS: HEPARIN SODIUM, PORCINE 5000 UNITS/1 ML VIAL SQ SCH ×2 (08:07→21:17)
[2016-11-06] MEDS: ZINC OXIDE 56.7 GM TUBE TP SCH ×2 (08:08→21:18)
[2016-11-06] MEDS: HYDROGEN PEROXIDE 480 ML BOTTLE TP SCH ×2 (08:08→21:18)
[2016-11-06] MEDS: MINERAL OIL/PETROL OINT 396 GM JAR TP SCH ×2 (08:08→21:17)
[2016-11-06] MEDS: NEOMY SULF/BACITRAC ZN/POLY 15 GM TUBE TP SCH ×2 (08:08→21:18)
[2016-11-06] MEDS: BUDESONIDE RESPULE INH 0.5 MG/2 ML AMPUL.NEB IH SCH ×2 (08:34→20:30)
[2016-11-06] MEDS: INSULIN LISPRO/ASPART 100 UNIT/ML CARTRIDGE SQ PRN (12:25)
[2016-11-06 19:55] VITALS: BP 144/70
[2016-11-06] MEDS: TEMAZEPAM 15 MG CAPSULE PO SCH (21:19)
[2016-11-06] MEDS: GABAPENTIN 100 MG CAPSULE PO SCH (21:19)
[2016-11-06] MEDS: MONTELUKAST SODIUM (10MG) 10 MG TABLET PO SCH (21:19)
[2016-11-06] MEDS: NAPROXEN 500 MG TABLET PO PRN (21:19)
[2016-11-06] MEDS: GUAIFENESIN/D-METHORPHAN HB 5 ML UDC PO PRN (21:19)
[2016-11-06] MEDS: ATARAX 25 MG PO PRN (22:11)
[2016-11-07] MEDS: IPRATROPIUM NEB FS 0.5 MG/2.5 ML AMPUL.NEB IH SCH ×4 (02:02→20:15)
[2016-11-07] MEDS: ALBUTEROL FS 2.5 MG/3 ML VIAL.NEB NEB SCH ×4 (02:03→20:15)
[2016-11-07] MEDS: PANTOPRAZOLE 40 MG TABLET.DR PO SCH (05:50)
[2016-11-07] MEDS: BLOOD SUGAR DIAGNOSTIC 1 EACH STRIP VI SCH ×3 (06:53→16:47)
[2016-11-07] MEDS: TRAMADOL HCL 50 MG TABLET PO PRN ×2 (06:55→18:19)
[2016-11-07] MEDS: INSULIN LISPRO/ASPART 100 UNIT/ML CARTRIDGE SQ PRN ×2 (06:55→16:48)
[2016-11-07 07:50] VITALS: BP 139/75
--- NOTE | 2016-11-07 07:55 | NUR ---
Social Service Section of [employer] assessment (3rd quarter) completed. Resident is alert and communicative. He would like to be discharged home when medically stable. Resident continues to have dialysis 3x/week on Tuesdays, and Saturdays. His brother, Aly, is his primary personnel placement specialist and tries to visit on a monthly basis. He is also his payee for his social security checks, which he is now receiving. Resident was seen by the well reactivator operator (Dr Justin Chappell, DPMan) on 10/07/2016, the dentist Dr. Dougherty on 07/22/[address] Wagner on 06/20/2016. He would eventually like to be discharged home but would like to regain strength in his feet before doing so.
[2016-11-07] MEDS: BUDESONIDE RESPULE INH 0.5 MG/2 ML AMPUL.NEB IH SCH ×2 (08:31→20:15)
[2016-11-07] MEDS: POLYVINYL ALCOHOL 15 ML BOTTLE EACHEYE SCH ×4 (09:21→20:58)
[2016-11-07] MEDS: DOCUSATE SODIUM 100 MG CAPSULE PO SCH (09:21)
[2016-11-07] MEDS: ASCORBIC ACID 500 MG TABLET PO SCH (09:21)
[2016-11-07] MEDS: VIT B CMPLX 3/FA/VIT C/BIOTIN 1 TAB TABLET PO SCH (09:21)
[2016-11-07] MEDS: PROSOURCE / PROSTAT (PYXIS) 30 ML UDC PO SCH ×3 (09:21→16:47)
[2016-11-07] MEDS: SERTRALINE HCL 25 MG TABLET PO SCH (09:21)
[2016-11-07] MEDS: predniSONE 10 MG TABLET PO SCH (09:21)
[2016-11-07] MEDS: SITAGLIPTIN PHOSPHATE 25 MG TABLET PO SCH (09:21)
[2016-11-07] MEDS: ZINC OXIDE 56.7 GM TUBE TP SCH ×2 (09:22→20:59)
[2016-11-07] MEDS: NEOMY SULF/BACITRAC ZN/POLY 15 GM TUBE TP SCH (09:22)
[2016-11-07] MEDS: MINERAL OIL/PETROL OINT 396 GM JAR TP SCH ×2 (09:22→20:59)
[2016-11-07] MEDS: HYDROGEN PEROXIDE 480 ML BOTTLE TP SCH ×2 (09:22→20:59)
[2016-11-07] MEDS: HEPARIN SODIUM, PORCINE 5000 UNITS/1 ML VIAL SQ SCH ×2 (09:22→20:58)
[2016-11-07] MEDS: GUAIFENESIN/D-METHORPHAN HB 5 ML UDC PO PRN ×2 (09:26→20:59)
[2016-11-07] MEDS: ACETYLCYSTEINE 20% SOLN 800 MG/4 ML VIAL NEB SCH (20:15)
[2016-11-07 20:22] VITALS: BP 141/70
[2016-11-07] MEDS: ATARAX 25 MG PO PRN (20:59)
[2016-11-07] MEDS: TEMAZEPAM 15 MG CAPSULE PO SCH (21:53)
[2016-11-07] MEDS: MONTELUKAST SODIUM (10MG) 10 MG TABLET PO SCH (21:53)
[2016-11-07] MEDS: GABAPENTIN 100 MG CAPSULE PO SCH (21:53)
[2016-11-07] MEDS: NAPROXEN 500 MG TABLET PO PRN (21:54)
[2016-11-08] MEDS: ALBUTEROL FS 2.5 MG/3 ML VIAL.NEB NEB SCH ×4 (01:24→19:30)
[2016-11-08] MEDS: IPRATROPIUM NEB FS 0.5 MG/2.5 ML AMPUL.NEB IH SCH ×4 (01:24→19:30)
[2016-11-08] MEDS: PANTOPRAZOLE 40 MG TABLET.DR PO SCH (05:47)
[2016-11-08] MEDS: BLOOD SUGAR DIAGNOSTIC 1 EACH STRIP VI SCH ×3 (06:53→16:52)
[2016-11-08] MEDS: INSULIN LISPRO/ASPART 100 UNIT/ML CARTRIDGE SQ PRN ×2 (06:54→12:25)
[2016-11-08] MEDS: ACETYLCYSTEINE 20% SOLN 800 MG/4 ML VIAL NEB SCH ×2 (07:30→19:30)
[2016-11-08] MEDS: TRAMADOL HCL 50 MG TABLET PO PRN (07:40)
[2016-11-08 08:06] VITALS: BP 152/82
[2016-11-08] MEDS: BUDESONIDE RESPULE INH 0.5 MG/2 ML AMPUL.NEB IH SCH ×2 (08:17→20:31)
[2016-11-08] MEDS: SERTRALINE HCL 25 MG TABLET PO SCH (08:20)
[2016-11-08] MEDS: PROSOURCE / PROSTAT (PYXIS) 30 ML UDC PO SCH ×3 (08:20→16:52)
[2016-11-08] MEDS: predniSONE 10 MG TABLET PO SCH (08:20)
[2016-11-08] MEDS: ASCORBIC ACID 500 MG TABLET PO SCH (08:20)
[2016-11-08] MEDS: VIT B CMPLX 3/FA/VIT C/BIOTIN 1 TAB TABLET PO SCH (08:20)
[2016-11-08] MEDS: POLYVINYL ALCOHOL 15 ML BOTTLE EACHEYE SCH ×4 (08:20→21:35)
[2016-11-08] MEDS: SITAGLIPTIN PHOSPHATE 25 MG TABLET PO SCH (08:20)
[2016-11-08] MEDS: DOCUSATE SODIUM 100 MG CAPSULE PO SCH (08:20)
[2016-11-08] MEDS: MINERAL OIL/PETROL OINT 396 GM JAR TP SCH ×2 (08:21→21:36)
[2016-11-08] MEDS: ZINC OXIDE 56.7 GM TUBE TP SCH ×2 (08:21→21:36)
[2016-11-08] MEDS: HEPARIN SODIUM, PORCINE 5000 UNITS/1 ML VIAL SQ SCH ×2 (08:21→21:36)
[2016-11-08] MEDS: HYDROGEN PEROXIDE 480 ML BOTTLE TP SCH ×2 (08:21→21:36)
--- NOTE | 2016-11-08 12:41 | NUR ---
Informed by RNA that resident has been asking to walk and that he suggested that starting next week he start to wheel himself in his wheelchair. Informed the charge nurse who stated she believes resident has an order for that but will double check. Also, she will check for PT eval if it is appropriate.
[2016-11-08 19:51] VITALS: BP 147/97
[2016-11-08] MEDS: TEMAZEPAM 15 MG CAPSULE PO SCH (21:36)
[2016-11-08] MEDS: MONTELUKAST SODIUM (10MG) 10 MG TABLET PO SCH (21:36)
[2016-11-08] MEDS: GABAPENTIN 100 MG CAPSULE PO SCH (21:36)
[2016-11-08] MEDS: ATARAX 25 MG PO PRN (21:37)
[2016-11-08] MEDS: GUAIFENESIN/D-METHORPHAN HB 5 ML UDC PO PRN (21:37)
[2016-11-09] MEDS: IPRATROPIUM NEB FS 0.5 MG/2.5 ML AMPUL.NEB IH SCH ×4 (00:47→19:22)
[2016-11-09] MEDS: ALBUTEROL FS 2.5 MG/3 ML VIAL.NEB NEB SCH ×4 (00:47→19:22)
[2016-11-09] MEDS: PANTOPRAZOLE 40 MG TABLET.DR PO SCH (05:31)
[2016-11-09] MEDS: INSULIN LISPRO/ASPART 100 UNIT/ML CARTRIDGE SQ PRN ×2 (07:04→17:05)
[2016-11-09] MEDS: BLOOD SUGAR DIAGNOSTIC 1 EACH STRIP VI SCH ×3 (07:30→17:04)
[2016-11-09 08:00] VITALS: BP 146/88
[2016-11-09] MEDS: ASCORBIC ACID 500 MG TABLET PO SCH (08:39)
[2016-11-09] MEDS: SERTRALINE HCL 25 MG TABLET PO SCH (08:39)
[2016-11-09] MEDS: DOCUSATE SODIUM 100 MG CAPSULE PO SCH (08:39)
[2016-11-09] MEDS: predniSONE 10 MG TABLET PO SCH (08:39)
[2016-11-09] MEDS: VIT B CMPLX 3/FA/VIT C/BIOTIN 1 TAB TABLET PO SCH (08:39)
[2016-11-09] MEDS: SITAGLIPTIN PHOSPHATE 25 MG TABLET PO SCH (08:39)
[2016-11-09] MEDS: PROSOURCE / PROSTAT (PYXIS) 30 ML UDC PO SCH ×3 (08:39→17:04)
[2016-11-09] MEDS: POLYVINYL ALCOHOL 15 ML BOTTLE EACHEYE SCH ×4 (08:39→21:11)
[2016-11-09] MEDS: HYDROGEN PEROXIDE 480 ML BOTTLE TP SCH ×2 (08:40→21:11)
[2016-11-09] MEDS: ZINC OXIDE 56.7 GM TUBE TP SCH ×2 (08:40→21:11)
[2016-11-09] MEDS: HEPARIN SODIUM, PORCINE 5000 UNITS/1 ML VIAL SQ SCH ×2 (08:40→21:11)
[2016-11-09] MEDS: MINERAL OIL/PETROL OINT 396 GM JAR TP SCH ×2 (08:40→21:11)
[2016-11-09] MEDS: ACETYLCYSTEINE 20% SOLN 800 MG/4 ML VIAL NEB SCH ×3 (08:42→19:22)
[2016-11-09] MEDS: BUDESONIDE RESPULE INH 0.5 MG/2 ML AMPUL.NEB IH SCH ×2 (09:01→20:06)
[2016-11-09] MEDS: GUAIFENESIN/D-METHORPHAN HB 5 ML UDC PO PRN ×2 (09:26→22:16)
[2016-11-09] MEDS: TRAMADOL HCL 50 MG TABLET PO PRN ×2 (09:26→13:05)
[2016-11-09 20:09] VITALS: BP 146/78
[2016-11-09] MEDS: TEMAZEPAM 15 MG CAPSULE PO SCH (21:11)
[2016-11-09] MEDS: GABAPENTIN 100 MG CAPSULE PO SCH (21:11)
[2016-11-09] MEDS: MONTELUKAST SODIUM (10MG) 10 MG TABLET PO SCH (21:12)
[2016-11-09] MEDS: NAPROXEN 500 MG TABLET PO PRN (22:16)
[2016-11-10] MEDS: IPRATROPIUM NEB FS 0.5 MG/2.5 ML AMPUL.NEB IH SCH ×4 (01:29→20:20)
[2016-11-10] MEDS: ALBUTEROL FS 2.5 MG/3 ML VIAL.NEB NEB SCH ×4 (01:29→20:20)
[2016-11-10] MEDS: PANTOPRAZOLE 40 MG TABLET.DR PO SCH (05:17)
[2016-11-10] MEDS: INSULIN LISPRO/ASPART 100 UNIT/ML CARTRIDGE SQ PRN ×3 (06:41→19:23)
[2016-11-10] MEDS: BLOOD SUGAR DIAGNOSTIC 1 EACH STRIP VI SCH ×3 (06:41→17:30)
[2016-11-10] MEDS: ACETYLCYSTEINE 20% SOLN 800 MG/4 ML VIAL NEB SCH ×2 (07:11→20:20)
[2016-11-10 08:00] VITALS: BP 145/94
[2016-11-10] MEDS: BUDESONIDE RESPULE INH 0.5 MG/2 ML AMPUL.NEB IH SCH ×2 (08:11→20:20)
[2016-11-10] MEDS: POLYVINYL ALCOHOL 15 ML BOTTLE EACHEYE SCH ×4 (08:58→20:50)
[2016-11-10] MEDS: DOCUSATE SODIUM 100 MG CAPSULE PO SCH (08:58)
[2016-11-10] MEDS: SITAGLIPTIN PHOSPHATE 25 MG TABLET PO SCH (08:58)
[2016-11-10] MEDS: SERTRALINE HCL 25 MG TABLET PO SCH (08:59)
[2016-11-10] MEDS: ASCORBIC ACID 500 MG TABLET PO SCH (08:59)
[2016-11-10] MEDS: HEPARIN SODIUM, PORCINE 5000 UNITS/1 ML VIAL SQ SCH ×2 (08:59→20:51)
[2016-11-10] MEDS: PROSOURCE / PROSTAT (PYXIS) 30 ML UDC PO SCH ×3 (08:59→16:44)
[2016-11-10] MEDS: VIT B CMPLX 3/FA/VIT C/BIOTIN 1 TAB TABLET PO SCH (08:59)
[2016-11-10] MEDS: MINERAL OIL/PETROL OINT 396 GM JAR TP SCH ×2 (09:05→20:51)
[2016-11-10] MEDS: HYDROGEN PEROXIDE 480 ML BOTTLE TP SCH ×2 (09:05→20:51)
[2016-11-10] MEDS: ZINC OXIDE 56.7 GM TUBE TP SCH ×2 (09:05→20:51)
[2016-11-10 20:02] VITALS: BP 154/97
[2016-11-10] MEDS: GABAPENTIN 100 MG CAPSULE PO SCH (21:36)
[2016-11-10] MEDS: MONTELUKAST SODIUM (10MG) 10 MG TABLET PO SCH (21:37)
[2016-11-10] MEDS: TEMAZEPAM 15 MG CAPSULE PO SCH (21:37)
[2016-11-11] MEDS: ALBUTEROL FS 2.5 MG/3 ML VIAL.NEB NEB SCH ×4 (01:10→20:27)
[2016-11-11] MEDS: IPRATROPIUM NEB FS 0.5 MG/2.5 ML AMPUL.NEB IH SCH ×4 (01:10→20:27)
[2016-11-11] MEDS: PANTOPRAZOLE 40 MG TABLET.DR PO SCH (05:54)
[2016-11-11] MEDS: BLOOD SUGAR DIAGNOSTIC 1 EACH STRIP VI SCH ×3 (06:46→17:41)
[2016-11-11] MEDS: ACETYLCYSTEINE 20% SOLN 800 MG/4 ML VIAL NEB SCH ×2 (07:30→20:27)
[2016-11-11 08:00] VITALS: BP 160/100
[2016-11-11] MEDS: BUDESONIDE RESPULE INH 0.5 MG/2 ML AMPUL.NEB IH SCH ×2 (08:16→20:27)
[2016-11-11] MEDS: VIT B CMPLX 3/FA/VIT C/BIOTIN 1 TAB TABLET PO SCH (08:25)
[2016-11-11] MEDS: ASCORBIC ACID 500 MG TABLET PO SCH (08:25)
[2016-11-11] MEDS: POLYVINYL ALCOHOL 15 ML BOTTLE EACHEYE SCH ×4 (08:25→20:43)
[2016-11-11] MEDS: SITAGLIPTIN PHOSPHATE 25 MG TABLET PO SCH (08:25)
[2016-11-11] MEDS: PROSOURCE / PROSTAT (PYXIS) 30 ML UDC PO SCH ×3 (08:25→17:41)
[2016-11-11] MEDS: DOCUSATE SODIUM 100 MG CAPSULE PO SCH (08:25)
[2016-11-11] MEDS: SERTRALINE HCL 25 MG TABLET PO SCH (08:26)
[2016-11-11] MEDS: MINERAL OIL/PETROL OINT 396 GM JAR TP SCH ×2 (08:26→20:44)
[2016-11-11] MEDS: HEPARIN SODIUM, PORCINE 5000 UNITS/1 ML VIAL SQ SCH ×2 (08:26→20:44)
[2016-11-11] MEDS: ZINC OXIDE 56.7 GM TUBE TP SCH ×2 (09:00→20:44)
[2016-11-11] MEDS: HYDROGEN PEROXIDE 480 ML BOTTLE TP SCH ×2 (09:00→20:44)
[2016-11-11] MEDS: INSULIN LISPRO/ASPART 100 UNIT/ML CARTRIDGE SQ PRN ×2 (17:40→17:43)
[2016-11-11 20:02] VITALS: BP 161/99
[2016-11-11] MEDS: GUAIFENESIN/D-METHORPHAN HB 5 ML UDC PO PRN (20:45)
[2016-11-11] MEDS: ATARAX 25 MG PO PRN (20:45)
[2016-11-11] MEDS: GABAPENTIN 100 MG CAPSULE PO SCH (21:44)
[2016-11-11] MEDS: MONTELUKAST SODIUM (10MG) 10 MG TABLET PO SCH (21:45)
[2016-11-11] MEDS: TEMAZEPAM 15 MG CAPSULE PO SCH (21:45)
[2016-11-12] MEDS: ALBUTEROL FS 2.5 MG/3 ML VIAL.NEB NEB SCH ×4 (00:45→20:18)
[2016-11-12] MEDS: IPRATROPIUM NEB FS 0.5 MG/2.5 ML AMPUL.NEB IH SCH ×4 (00:45→20:18)
[2016-11-12] MEDS: PANTOPRAZOLE 40 MG TABLET.DR PO SCH (06:07)
[2016-11-12] MEDS: BLOOD SUGAR DIAGNOSTIC 1 EACH STRIP VI SCH ×3 (06:38→17:11)
[2016-11-12] MEDS: ACETYLCYSTEINE 20% SOLN 800 MG/4 ML VIAL NEB SCH ×2 (07:30→20:18)
[2016-11-12 08:12] VITALS: BP 136/68
[2016-11-12] MEDS: HEPARIN SODIUM, PORCINE 5000 UNITS/1 ML VIAL SQ SCH ×2 (08:39→20:47)
[2016-11-12] MEDS: POLYVINYL ALCOHOL 15 ML BOTTLE EACHEYE SCH ×4 (08:39→20:45)
[2016-11-12] MEDS: SITAGLIPTIN PHOSPHATE 25 MG TABLET PO SCH (08:39)
[2016-11-12] MEDS: PROSOURCE / PROSTAT (PYXIS) 30 ML UDC PO SCH ×3 (08:39→16:55)
[2016-11-12] MEDS: SERTRALINE HCL 25 MG TABLET PO SCH (08:39)
[2016-11-12] MEDS: ASCORBIC ACID 500 MG TABLET PO SCH (08:39)
[2016-11-12] MEDS: DOCUSATE SODIUM 100 MG CAPSULE PO SCH (08:39)
[2016-11-12] MEDS: VIT B CMPLX 3/FA/VIT C/BIOTIN 1 TAB TABLET PO SCH (08:39)
[2016-11-12] MEDS: MINERAL OIL/PETROL OINT 396 GM JAR TP SCH ×2 (08:40→20:47)
[2016-11-12] MEDS: BUDESONIDE RESPULE INH 0.5 MG/2 ML AMPUL.NEB IH SCH ×2 (08:57→20:38)
[2016-11-12] MEDS: GUAIFENESIN/D-METHORPHAN HB 5 ML UDC PO PRN ×2 (08:59→23:08)
[2016-11-12] MEDS: ZINC OXIDE 56.7 GM TUBE TP SCH ×2 (09:00→20:47)
[2016-11-12] MEDS: HYDROGEN PEROXIDE 480 ML BOTTLE TP SCH ×2 (09:00→20:47)
[2016-11-12] MEDS: INSULIN LISPRO/ASPART 100 UNIT/ML CARTRIDGE SQ PRN (17:11)
[2016-11-12] MEDS: TRAMADOL HCL 50 MG TABLET PO PRN (17:52)
[2016-11-12 19:54] VITALS: BP 135/92
[2016-11-12] MEDS: TEMAZEPAM 15 MG CAPSULE PO SCH (21:42)
[2016-11-12] MEDS: GABAPENTIN 100 MG CAPSULE PO SCH (21:42)
[2016-11-12] MEDS: MONTELUKAST SODIUM (10MG) 10 MG TABLET PO SCH (21:42)
[2016-11-12] MEDS: ATARAX 25 MG PO PRN (23:08)
[2016-11-13] MEDS: ALBUTEROL FS 2.5 MG/3 ML VIAL.NEB NEB SCH ×4 (02:04→19:09)
[2016-11-13] MEDS: IPRATROPIUM NEB FS 0.5 MG/2.5 ML AMPUL.NEB IH SCH ×4 (02:04→19:09)
[2016-11-13] MEDS: PANTOPRAZOLE 40 MG TABLET.DR PO SCH (05:53)
[2016-11-13] MEDS: BLOOD SUGAR DIAGNOSTIC 1 EACH STRIP VI SCH ×3 (06:38→17:30)
[2016-11-13] MEDS: ACETYLCYSTEINE 20% SOLN 800 MG/4 ML VIAL NEB SCH ×2 (07:27→19:09)
[2016-11-13 08:01] VITALS: BP 140/78
[2016-11-13] MEDS: BUDESONIDE RESPULE INH 0.5 MG/2 ML AMPUL.NEB IH SCH ×2 (08:15→20:14)
[2016-11-13] MEDS: SERTRALINE HCL 25 MG TABLET PO SCH (08:41)
[2016-11-13] MEDS: POLYVINYL ALCOHOL 15 ML BOTTLE EACHEYE SCH ×4 (08:41→20:55)
[2016-11-13] MEDS: DOCUSATE SODIUM 100 MG CAPSULE PO SCH ×2 (08:41→20:55)
[2016-11-13] MEDS: PROSOURCE / PROSTAT (PYXIS) 30 ML UDC PO SCH ×3 (08:41→17:18)
[2016-11-13] MEDS: SITAGLIPTIN PHOSPHATE 25 MG TABLET PO SCH (08:41)
[2016-11-13] MEDS: ASCORBIC ACID 500 MG TABLET PO SCH ×2 (08:41→20:55)
[2016-11-13] MEDS: VIT B CMPLX 3/FA/VIT C/BIOTIN 1 TAB TABLET PO SCH (08:41)
[2016-11-13] MEDS: HYDROGEN PEROXIDE 480 ML BOTTLE TP SCH ×2 (08:42→20:58)
[2016-11-13] MEDS: HEPARIN SODIUM, PORCINE 5000 UNITS/1 ML VIAL SQ SCH ×2 (08:42→20:58)
[2016-11-13] MEDS: ZINC OXIDE 56.7 GM TUBE TP SCH ×2 (08:42→20:58)
[2016-11-13] MEDS: MINERAL OIL/PETROL OINT 396 GM JAR TP SCH ×2 (08:42→20:58)
[2016-11-13] MEDS: INSULIN LISPRO/ASPART 100 UNIT/ML CARTRIDGE SQ PRN (11:54)
[2016-11-13 19:43] VITALS: BP 145/91
[2016-11-13] MEDS: GABAPENTIN 100 MG CAPSULE PO SCH (21:47)
[2016-11-13] MEDS: TEMAZEPAM 15 MG CAPSULE PO SCH (21:47)
[2016-11-13] MEDS: MONTELUKAST SODIUM (10MG) 10 MG TABLET PO SCH (21:48)
[2016-11-14] MEDS: IPRATROPIUM NEB FS 0.5 MG/2.5 ML AMPUL.NEB IH SCH ×4 (02:13→20:17)
[2016-11-14] MEDS: ALBUTEROL FS 2.5 MG/3 ML VIAL.NEB NEB SCH ×4 (02:13→20:17)
[2016-11-14] MEDS: PANTOPRAZOLE 40 MG TABLET.DR PO SCH (05:42)
[2016-11-14] MEDS: BLOOD SUGAR DIAGNOSTIC 1 EACH STRIP VI SCH ×3 (07:30→17:17)
[2016-11-14 08:00] VITALS: BP 99/43
[2016-11-14] MEDS: ACETYLCYSTEINE 20% SOLN 800 MG/4 ML VIAL NEB SCH ×2 (08:10→20:17)
[2016-11-14] MEDS: BUDESONIDE RESPULE INH 0.5 MG/2 ML AMPUL.NEB IH SCH ×2 (08:10→20:39)
[2016-11-14] MEDS: SERTRALINE HCL 25 MG TABLET PO SCH (08:33)
[2016-11-14] MEDS: VIT B CMPLX 3/FA/VIT C/BIOTIN 1 TAB TABLET PO SCH (08:33)
[2016-11-14] MEDS: POLYVINYL ALCOHOL 15 ML BOTTLE EACHEYE SCH ×4 (08:33→21:23)
[2016-11-14] MEDS: SITAGLIPTIN PHOSPHATE 25 MG TABLET PO SCH (08:33)
[2016-11-14] MEDS: PROSOURCE / PROSTAT (PYXIS) 30 ML UDC PO SCH ×3 (08:33→17:18)
[2016-11-14] MEDS: MINERAL OIL/PETROL OINT 396 GM JAR TP SCH ×2 (08:34→21:23)
[2016-11-14] MEDS: HEPARIN SODIUM, PORCINE 5000 UNITS/1 ML VIAL SQ SCH ×2 (08:34→21:23)
[2016-11-14] MEDS: ZINC OXIDE 56.7 GM TUBE TP SCH ×2 (08:34→21:24)
[2016-11-14] MEDS: HYDROGEN PEROXIDE 480 ML BOTTLE TP SCH ×2 (08:34→21:24)
[2016-11-14] MEDS: GUAIFENESIN/D-METHORPHAN HB 5 ML UDC PO PRN ×2 (09:48→21:24)
[2016-11-14] MEDS: NAPROXEN 500 MG TABLET PO PRN (17:08)
[2016-11-14 19:42] VITALS: BP 158/97
[2016-11-14] MEDS: DOCUSATE SODIUM 100 MG CAPSULE PO SCH (21:23)
[2016-11-14] MEDS: ASCORBIC ACID 500 MG TABLET PO SCH (21:23)
[2016-11-14] MEDS: GABAPENTIN 100 MG CAPSULE PO SCH (21:24)
[2016-11-14] MEDS: MONTELUKAST SODIUM (10MG) 10 MG TABLET PO SCH (21:24)
[2016-11-14] MEDS: TEMAZEPAM 15 MG CAPSULE PO SCH (21:24)
[2016-11-14] MEDS: ATARAX 25 MG PO PRN (21:24)
[2016-11-14] MEDS: ACETAMINOPHEN 650 MG/20 ML UDC- FOR SA PATIENTS ONLY PO PRN (21:25)
[2016-11-15] MEDS: ALBUTEROL FS 2.5 MG/3 ML VIAL.NEB NEB SCH ×4 (02:14→19:29)
[2016-11-15] MEDS: IPRATROPIUM NEB FS 0.5 MG/2.5 ML AMPUL.NEB IH SCH ×4 (02:14→19:29)
[2016-11-15] MEDS: PANTOPRAZOLE 40 MG TABLET.DR PO SCH (05:14)
[2016-11-15] MEDS: BLOOD SUGAR DIAGNOSTIC 1 EACH STRIP VI SCH ×3 (06:41→17:08)
[2016-11-15] MEDS: INSULIN LISPRO/ASPART 100 UNIT/ML CARTRIDGE SQ PRN ×2 (06:43→12:25)
[2016-11-15 07:42] VITALS: BP 146/95
[2016-11-15] MEDS: BUDESONIDE RESPULE INH 0.5 MG/2 ML AMPUL.NEB IH SCH ×2 (08:02→20:00)
[2016-11-15] MEDS: ACETYLCYSTEINE 20% SOLN 800 MG/4 ML VIAL NEB SCH ×2 (08:05→19:29)
[2016-11-15] MEDS: VIT B CMPLX 3/FA/VIT C/BIOTIN 1 TAB TABLET PO SCH (09:00)
[2016-11-15] MEDS: HEPARIN SODIUM, PORCINE 5000 UNITS/1 ML VIAL SQ SCH ×2 (09:00→20:39)
[2016-11-15] MEDS: HYDROGEN PEROXIDE 480 ML BOTTLE TP SCH ×2 (09:00→20:39)
[2016-11-15] MEDS: ZINC OXIDE 56.7 GM TUBE TP SCH ×2 (09:00→20:39)
[2016-11-15] MEDS: PROSOURCE / PROSTAT (PYXIS) 30 ML UDC PO SCH ×3 (09:00→17:08)
[2016-11-15] MEDS: POLYVINYL ALCOHOL 15 ML BOTTLE EACHEYE SCH ×4 (09:00→20:39)
[2016-11-15] MEDS: SITAGLIPTIN PHOSPHATE 25 MG TABLET PO SCH (09:00)
[2016-11-15] MEDS: SERTRALINE HCL 25 MG TABLET PO SCH (09:00)
[2016-11-15] MEDS: MINERAL OIL/PETROL OINT 396 GM JAR TP SCH ×2 (09:00→20:39)
[2016-11-15] MEDS: GUAIFENESIN/D-METHORPHAN HB 5 ML UDC PO PRN ×2 (10:25→20:40)
[2016-11-15 19:34] VITALS: BP 149/89
[2016-11-15] MEDS: DOCUSATE SODIUM 100 MG CAPSULE PO SCH (20:39)
[2016-11-15] MEDS: ASCORBIC ACID 500 MG TABLET PO SCH (20:39)
[2016-11-15] MEDS: NAPROXEN 500 MG TABLET PO PRN (20:40)
[2016-11-15] MEDS: ATARAX 25 MG PO PRN (20:40)
[2016-11-15] MEDS: GABAPENTIN 100 MG CAPSULE PO SCH (21:28)
[2016-11-15] MEDS: TEMAZEPAM 15 MG CAPSULE PO SCH (21:28)
[2016-11-15] MEDS: MONTELUKAST SODIUM (10MG) 10 MG TABLET PO SCH (21:28)
[2016-11-15] MEDS ORDERED: CICLOPIROX 8% TP SCH (22:00)
--- NOTE | 2016-11-15 22:04 | NUR ---
Spoke to Breana from [facility] pharmacy she said that Penlac 8% not covered by insurance,told her to send fax it that it's not covered and send any alternative.Will notify MD in the morning.
[2016-11-16] MEDS: ALBUTEROL FS 2.5 MG/3 ML VIAL.NEB NEB SCH ×4 (02:02→20:19)
[2016-11-16] MEDS: IPRATROPIUM NEB FS 0.5 MG/2.5 ML AMPUL.NEB IH SCH ×4 (02:02→20:19)
[2016-11-16] MEDS: PANTOPRAZOLE 40 MG TABLET.DR PO SCH (05:27)
[2016-11-16] MEDS: INSULIN LISPRO/ASPART 100 UNIT/ML CARTRIDGE SQ PRN (06:51)
[2016-11-16] MEDS: BLOOD SUGAR DIAGNOSTIC 1 EACH STRIP VI SCH ×3 (06:51→17:02)
[2016-11-16 07:46] VITALS: BP 148/95
[2016-11-16] MEDS: ACETYLCYSTEINE 20% SOLN 800 MG/4 ML VIAL NEB SCH ×2 (08:01→20:19)
[2016-11-16] MEDS: BUDESONIDE RESPULE INH 0.5 MG/2 ML AMPUL.NEB IH SCH ×2 (08:01→20:19)
[2016-11-16] MEDS: VIT B CMPLX 3/FA/VIT C/BIOTIN 1 TAB TABLET PO SCH (08:25)
[2016-11-16] MEDS: POLYVINYL ALCOHOL 15 ML BOTTLE EACHEYE SCH ×4 (08:25→21:00)
[2016-11-16] MEDS: SITAGLIPTIN PHOSPHATE 25 MG TABLET PO SCH (08:25)
[2016-11-16] MEDS: SERTRALINE HCL 25 MG TABLET PO SCH (08:25)
[2016-11-16] MEDS: PROSOURCE / PROSTAT (PYXIS) 30 ML UDC PO SCH ×3 (08:25→17:00)
[2016-11-16] MEDS: HEPARIN SODIUM, PORCINE 5000 UNITS/1 ML VIAL SQ SCH ×2 (08:26→21:36)
[2016-11-16] MEDS: HYDROGEN PEROXIDE 480 ML BOTTLE TP SCH ×2 (08:27→21:24)
[2016-11-16] MEDS: ZINC OXIDE 56.7 GM TUBE TP SCH ×2 (08:27→21:44)
[2016-11-16] MEDS: MINERAL OIL/PETROL OINT 396 GM JAR TP SCH ×2 (08:27→21:44)
--- NOTE | 2016-11-16 13:30 | NUR ---
Notified Dr. Prem Horner, covering for Dr. Guy that Penlac which was ordered by Dr Guy is not covered by patient's insurance. New order given to change Penlac to Fungi nail. Faxed order to [facility] pharmacy to supply OTC. Endorsed.
--- NOTE | 2016-11-16 14:00 | NUR ---
Resident return back from dialysis in stable condition. Accompanied by ambulance staff with RT. No bleeding noted in the R upper chest dialysis access site. Dressing in place.
[2016-11-16 19:40] VITALS: BP 153/91
[2016-11-16] MEDS: DOCUSATE SODIUM 100 MG CAPSULE PO SCH (21:23)
[2016-11-16] MEDS: ASCORBIC ACID 500 MG TABLET PO SCH (21:23)
[2016-11-16] MEDS: GABAPENTIN 100 MG CAPSULE PO SCH (21:24)
[2016-11-16] MEDS: TEMAZEPAM 15 MG CAPSULE PO SCH (21:25)
[2016-11-16] MEDS: MONTELUKAST SODIUM (10MG) 10 MG TABLET PO SCH (21:26)
[2016-11-16] MEDS: ATARAX 25 MG PO PRN (21:26)
[2016-11-16] MEDS: GUAIFENESIN/D-METHORPHAN HB 5 ML UDC PO PRN (21:27)
[2016-11-16] MEDS: TRAMADOL HCL 50 MG TABLET PO PRN (21:32)
--- NOTE | 2016-11-16 21:45 | NUR ---
RN NOTES CICLOPIROX (PENLAC) 8%CREAM UNAVAILABLE ON THE FLOOR. WAS UNABLE TO ADMINISTER TO Pt AT THIS TIME.
[2016-11-16] MEDS ORDERED: CICLOPIROX 8% TP SCH (22:00)
[2016-11-17] MEDS: IPRATROPIUM NEB FS 0.5 MG/2.5 ML AMPUL.NEB IH SCH ×4 (01:30→19:46)
[2016-11-17] MEDS: ALBUTEROL FS 2.5 MG/3 ML VIAL.NEB NEB SCH ×4 (01:30→19:46)
[2016-11-17] MEDS: BLOOD SUGAR DIAGNOSTIC 1 EACH STRIP VI SCH ×3 (06:50→18:18)
[2016-11-17] MEDS: PANTOPRAZOLE 40 MG TABLET.DR PO SCH (06:50)
--- NOTE | 2016-11-17 06:58 | NUR ---
RN NOTES ACCUCHECK BG 81. NO INSULIN COVERAGE NEEDED AT THIS TIME.
[2016-11-17 08:00] VITALS: BP 149/93
[2016-11-17] MEDS: BUDESONIDE RESPULE INH 0.5 MG/2 ML AMPUL.NEB IH SCH ×2 (08:03→20:01)
[2016-11-17] MEDS: ACETYLCYSTEINE 20% SOLN 800 MG/4 ML VIAL NEB SCH ×2 (08:03→19:46)
[2016-11-17] MEDS: PROSOURCE / PROSTAT (PYXIS) 30 ML UDC PO SCH ×3 (09:00→16:45)
[2016-11-17] MEDS: GUAIFENESIN/D-METHORPHAN HB 5 ML UDC PO PRN ×2 (09:00→21:37)
[2016-11-17] MEDS: SITAGLIPTIN PHOSPHATE 25 MG TABLET PO SCH (09:00)
[2016-11-17] MEDS: HEPARIN SODIUM, PORCINE 5000 UNITS/1 ML VIAL SQ SCH ×2 (09:00→20:32)
[2016-11-17] MEDS: MINERAL OIL/PETROL OINT 396 GM JAR TP SCH ×2 (09:00→20:29)
[2016-11-17] MEDS: SERTRALINE HCL 25 MG TABLET PO SCH (09:00)
[2016-11-17] MEDS: HYDROGEN PEROXIDE 480 ML BOTTLE TP SCH ×2 (09:00→20:29)
[2016-11-17] MEDS: ZINC OXIDE 56.7 GM TUBE TP SCH ×2 (09:00→20:29)
[2016-11-17] MEDS: VIT B CMPLX 3/FA/VIT C/BIOTIN 1 TAB TABLET PO SCH (09:00)
[2016-11-17] MEDS: POLYVINYL ALCOHOL 15 ML BOTTLE EACHEYE SCH ×4 (09:00→20:28)
[2016-11-17] MEDS: NAPROXEN 500 MG TABLET PO PRN ×2 (12:00→21:37)
[2016-11-17] MEDS: INSULIN LISPRO/ASPART 100 UNIT/ML CARTRIDGE SQ PRN (12:01)
[2016-11-17 19:53] VITALS: BP 142/92
[2016-11-17] MEDS: ASCORBIC ACID 500 MG TABLET PO SCH (20:28)
[2016-11-17] MEDS: DOCUSATE SODIUM 100 MG CAPSULE PO SCH (20:28)
--- NOTE | 2016-11-17 20:30 | NUR ---
Called and spoke Sofie from [facility] to follow Temazepam 15mg and according to Sofie they still waiting for the Doctors consent before they will deliver the medication. Charge nurse aware.
[2016-11-17] MEDS: MONTELUKAST SODIUM (10MG) 10 MG TABLET PO SCH (21:32)
[2016-11-17] MEDS: GABAPENTIN 100 MG CAPSULE PO SCH (21:32)
[2016-11-17] MEDS: TEMAZEPAM 15 MG CAPSULE PO SCH (22:00)
[2016-11-17] MEDS: [UNRECOGNIZED DRUG - OTHER] TP SCH (22:00)
[2016-11-18] MEDS: IPRATROPIUM NEB FS 0.5 MG/2.5 ML AMPUL.NEB IH SCH ×4 (00:58→19:44)
[2016-11-18] MEDS: ALBUTEROL FS 2.5 MG/3 ML VIAL.NEB NEB SCH ×4 (00:58→19:44)
[2016-11-18] MEDS: PANTOPRAZOLE 40 MG TABLET.DR PO SCH (05:07)
[2016-11-18] MEDS: BLOOD SUGAR DIAGNOSTIC 1 EACH STRIP VI SCH ×3 (07:30→18:11)
[2016-11-18] MEDS: BUDESONIDE RESPULE INH 0.5 MG/2 ML AMPUL.NEB IH SCH ×2 (07:50→20:01)
[2016-11-18] MEDS: ACETYLCYSTEINE 20% SOLN 800 MG/4 ML VIAL NEB SCH ×2 (08:05→19:44)
[2016-11-18 08:16] VITALS: BP 144/94
[2016-11-18] MEDS: HEPARIN SODIUM, PORCINE 5000 UNITS/1 ML VIAL SQ SCH ×2 (09:05→21:11)
[2016-11-18] MEDS: SERTRALINE HCL 25 MG TABLET PO SCH (09:05)
[2016-11-18] MEDS: POLYVINYL ALCOHOL 15 ML BOTTLE EACHEYE SCH ×4 (09:05→21:11)
[2016-11-18] MEDS: VIT B CMPLX 3/FA/VIT C/BIOTIN 1 TAB TABLET PO SCH (09:05)
[2016-11-18] MEDS: SITAGLIPTIN PHOSPHATE 25 MG TABLET PO SCH (09:05)
[2016-11-18] MEDS: PROSOURCE / PROSTAT (PYXIS) 30 ML UDC PO SCH ×3 (09:05→17:00)
[2016-11-18] MEDS: HYDROGEN PEROXIDE 480 ML BOTTLE TP SCH ×2 (11:45→21:11)
[2016-11-18] MEDS: ZINC OXIDE 56.7 GM TUBE TP SCH ×2 (11:45→21:11)
[2016-11-18] MEDS: MINERAL OIL/PETROL OINT 396 GM JAR TP SCH ×2 (15:45→21:11)
[2016-11-18 19:58] VITALS: BP 144/99
[2016-11-18] MEDS: MONTELUKAST SODIUM (10MG) 10 MG TABLET PO SCH (21:11)
[2016-11-18] MEDS: TEMAZEPAM 15 MG CAPSULE PO SCH (21:11)
[2016-11-18] MEDS: GABAPENTIN 100 MG CAPSULE PO SCH (21:11)
[2016-11-18] MEDS: DOCUSATE SODIUM 100 MG CAPSULE PO SCH (21:11)
[2016-11-18] MEDS: ASCORBIC ACID 500 MG TABLET PO SCH (21:11)
[2016-11-18] MEDS: [UNRECOGNIZED DRUG - OTHER] TP SCH (21:12)
[2016-11-18] MEDS: GUAIFENESIN/D-METHORPHAN HB 5 ML UDC PO PRN (21:39)
[2016-11-19] MEDS: ALBUTEROL FS 2.5 MG/3 ML VIAL.NEB NEB SCH ×4 (01:58→19:59)
[2016-11-19] MEDS: IPRATROPIUM NEB FS 0.5 MG/2.5 ML AMPUL.NEB IH SCH ×4 (01:58→19:59)
[2016-11-19] MEDS: PANTOPRAZOLE 40 MG TABLET.DR PO SCH (05:46)
[2016-11-19 07:47] VITALS: BP 130/79
[2016-11-19] MEDS: VIT B CMPLX 3/FA/VIT C/BIOTIN 1 TAB TABLET PO SCH (08:06)
[2016-11-19] MEDS: PROSOURCE / PROSTAT (PYXIS) 30 ML UDC PO SCH ×3 (08:06→17:48)
[2016-11-19] MEDS: POLYVINYL ALCOHOL 15 ML BOTTLE EACHEYE SCH ×4 (08:06→20:55)
[2016-11-19] MEDS: SITAGLIPTIN PHOSPHATE 25 MG TABLET PO SCH (08:06)
[2016-11-19] MEDS: BLOOD SUGAR DIAGNOSTIC 1 EACH STRIP VI SCH ×3 (08:06→17:48)
[2016-11-19] MEDS: SERTRALINE HCL 25 MG TABLET PO SCH (08:06)
[2016-11-19] MEDS: MINERAL OIL/PETROL OINT 396 GM JAR TP SCH ×2 (08:07→20:56)
[2016-11-19] MEDS: HEPARIN SODIUM, PORCINE 5000 UNITS/1 ML VIAL SQ SCH ×2 (08:07→20:56)
[2016-11-19] MEDS: ATARAX 25 MG PO PRN (08:08)
[2016-11-19] MEDS: GUAIFENESIN/D-METHORPHAN HB 5 ML UDC PO PRN ×2 (08:08→20:57)
[2016-11-19] MEDS: NAPROXEN 500 MG TABLET PO PRN (08:08)
[2016-11-19] MEDS: BUDESONIDE RESPULE INH 0.5 MG/2 ML AMPUL.NEB IH SCH ×2 (09:25→19:59)
[2016-11-19] MEDS: ACETYLCYSTEINE 20% SOLN 800 MG/4 ML VIAL NEB SCH ×2 (09:25→19:59)
[2016-11-19] MEDS: ZINC OXIDE 56.7 GM TUBE TP SCH ×2 (15:00→20:56)
[2016-11-19] MEDS: HYDROGEN PEROXIDE 480 ML BOTTLE TP SCH ×2 (15:00→20:56)
[2016-11-19 20:21] VITALS: BP 153/90
[2016-11-19] MEDS: ASCORBIC ACID 500 MG TABLET PO SCH (20:55)
[2016-11-19] MEDS: DOCUSATE SODIUM 100 MG CAPSULE PO SCH (20:55)
[2016-11-19] MEDS: GABAPENTIN 100 MG CAPSULE PO SCH (21:14)
[2016-11-19] MEDS: MONTELUKAST SODIUM (10MG) 10 MG TABLET PO SCH (21:14)
[2016-11-19] MEDS: TEMAZEPAM 15 MG CAPSULE PO SCH (21:14)
[2016-11-19] MEDS: [UNRECOGNIZED DRUG - OTHER] TP SCH (21:15)
[2016-11-20] MEDS: IPRATROPIUM NEB FS 0.5 MG/2.5 ML AMPUL.NEB IH SCH ×4 (01:30→20:27)
[2016-11-20] MEDS: ALBUTEROL FS 2.5 MG/3 ML VIAL.NEB NEB SCH ×4 (01:30→20:27)
[2016-11-20] MEDS: PANTOPRAZOLE 40 MG TABLET.DR PO SCH (06:00)
[2016-11-20] MEDS: BLOOD SUGAR DIAGNOSTIC 1 EACH STRIP VI SCH ×3 (07:17→16:54)
[2016-11-20 08:17] VITALS: BP 153/96
[2016-11-20] MEDS: ACETYLCYSTEINE 20% SOLN 800 MG/4 ML VIAL NEB SCH ×2 (08:22→20:27)
[2016-11-20] MEDS: BUDESONIDE RESPULE INH 0.5 MG/2 ML AMPUL.NEB IH SCH ×2 (08:22→20:40)
[2016-11-20] MEDS: POLYVINYL ALCOHOL 15 ML BOTTLE EACHEYE SCH ×4 (08:27→21:27)
[2016-11-20] MEDS: HEPARIN SODIUM, PORCINE 5000 UNITS/1 ML VIAL SQ SCH ×2 (08:27→21:27)
[2016-11-20] MEDS: MINERAL OIL/PETROL OINT 396 GM JAR TP SCH ×2 (08:27→21:27)
[2016-11-20] MEDS: ZINC OXIDE 56.7 GM TUBE TP SCH ×2 (08:27→21:28)
[2016-11-20] MEDS: PROSOURCE / PROSTAT (PYXIS) 30 ML UDC PO SCH ×3 (08:27→16:54)
[2016-11-20] MEDS: HYDROGEN PEROXIDE 480 ML BOTTLE TP SCH ×2 (08:27→21:27)
[2016-11-20] MEDS: SITAGLIPTIN PHOSPHATE 25 MG TABLET PO SCH (08:27)
[2016-11-20] MEDS: SERTRALINE HCL 25 MG TABLET PO SCH (08:27)
[2016-11-20] MEDS: VIT B CMPLX 3/FA/VIT C/BIOTIN 1 TAB TABLET PO SCH (08:27)
--- NOTE | 2016-11-20 12:14 | NUR ---
Seen and examined by Radha Petty NP ID and patient continue to complain that he is having secretions, suctioned trach but doesn't have excessive secretions. New order given by Radha for Robinul 1 mg., GT. Order faxed to [facility] pharmacy. Resident informed.
[2016-11-20] MEDS: INSULIN LISPRO/ASPART 100 UNIT/ML CARTRIDGE SQ PRN (16:58)
[2016-11-20 20:38] VITALS: BP 158/99
[2016-11-20] MEDS: ASCORBIC ACID 500 MG TABLET PO SCH (21:27)
[2016-11-20] MEDS: DOCUSATE SODIUM 100 MG CAPSULE PO SCH (21:27)
[2016-11-20] MEDS: TEMAZEPAM 15 MG CAPSULE PO SCH (21:28)
[2016-11-20] MEDS: MONTELUKAST SODIUM (10MG) 10 MG TABLET PO SCH (21:28)
[2016-11-20] MEDS: [UNRECOGNIZED DRUG - OTHER] TP SCH (21:28)
[2016-11-20] MEDS: GABAPENTIN 100 MG CAPSULE PO SCH (21:28)
[2016-11-20] MEDS: GLYCOPYRROLATE 1 MG TABLET GT SCH ×2 (21:30→21:33)
[2016-11-21] MEDS: IPRATROPIUM NEB FS 0.5 MG/2.5 ML AMPUL.NEB IH SCH ×4 (02:03→19:44)
[2016-11-21] MEDS: ALBUTEROL FS 2.5 MG/3 ML VIAL.NEB NEB SCH ×4 (02:03→19:44)
[2016-11-21] MEDS: GLYCOPYRROLATE 1 MG TABLET GT SCH ×4 (03:30→20:52)
[2016-11-21] MEDS: PANTOPRAZOLE 40 MG TABLET.DR PO SCH (06:03)
[2016-11-21] MEDS: BLOOD SUGAR DIAGNOSTIC 1 EACH STRIP VI SCH ×3 (07:29→17:07)
[2016-11-21] MEDS: ACETYLCYSTEINE 20% SOLN 800 MG/4 ML VIAL NEB SCH (07:51)
[2016-11-21 07:52] VITALS: BP 139/86
[2016-11-21] MEDS: BUDESONIDE RESPULE INH 0.5 MG/2 ML AMPUL.NEB IH SCH ×2 (08:15→20:00)
[2016-11-21] MEDS: POLYVINYL ALCOHOL 15 ML BOTTLE EACHEYE SCH ×4 (08:23→20:51)
[2016-11-21] MEDS: SERTRALINE HCL 25 MG TABLET PO SCH (08:23)
[2016-11-21] MEDS: VIT B CMPLX 3/FA/VIT C/BIOTIN 1 TAB TABLET PO SCH (08:23)
[2016-11-21] MEDS: PROSOURCE / PROSTAT (PYXIS) 30 ML UDC PO SCH ×3 (08:23→17:07)
[2016-11-21] MEDS: SITAGLIPTIN PHOSPHATE 25 MG TABLET PO SCH (08:23)
[2016-11-21] MEDS: MINERAL OIL/PETROL OINT 396 GM JAR TP SCH ×2 (08:24→20:51)
[2016-11-21] MEDS: HYDROGEN PEROXIDE 480 ML BOTTLE TP SCH ×2 (08:24→20:51)
[2016-11-21] MEDS: ZINC OXIDE 56.7 GM TUBE TP SCH ×2 (08:24→20:52)
[2016-11-21] MEDS: HEPARIN SODIUM, PORCINE 5000 UNITS/1 ML VIAL SQ SCH ×2 (08:42→20:51)
[2016-11-21 19:57] VITALS: BP 107/64
[2016-11-21] MEDS: DOCUSATE SODIUM 100 MG CAPSULE PO SCH (20:51)
[2016-11-21] MEDS: ASCORBIC ACID 500 MG TABLET PO SCH (20:51)
[2016-11-21] MEDS: ATARAX 25 MG PO PRN (20:55)
[2016-11-21] MEDS: NAPROXEN 500 MG TABLET PO PRN (20:55)
[2016-11-21] MEDS: GUAIFENESIN/D-METHORPHAN HB 5 ML UDC PO PRN (20:55)
[2016-11-21] MEDS: [UNRECOGNIZED DRUG - OTHER] TP SCH (21:23)
[2016-11-21] MEDS: TEMAZEPAM 15 MG CAPSULE PO SCH (21:23)
[2016-11-21] MEDS: MONTELUKAST SODIUM (10MG) 10 MG TABLET PO SCH (21:23)
[2016-11-21] MEDS: GABAPENTIN 100 MG CAPSULE PO SCH (21:23)
[2016-11-22] MEDS: ALBUTEROL FS 2.5 MG/3 ML VIAL.NEB NEB SCH ×4 (01:30→19:22)
[2016-11-22] MEDS: IPRATROPIUM NEB FS 0.5 MG/2.5 ML AMPUL.NEB IH SCH ×4 (01:30→19:22)
[2016-11-22] MEDS: GLYCOPYRROLATE 1 MG TABLET GT SCH ×4 (03:33→21:09)
[2016-11-22] MEDS: PANTOPRAZOLE 40 MG TABLET.DR PO SCH (05:10)
[2016-11-22] MEDS: INSULIN LISPRO/ASPART 100 UNIT/ML CARTRIDGE SQ PRN (06:37)
[2016-11-22] MEDS: BLOOD SUGAR DIAGNOSTIC 1 EACH STRIP VI SCH ×3 (06:37→16:24)
[2016-11-22 07:49] VITALS: BP 147/88
[2016-11-22] MEDS: PROSOURCE / PROSTAT (PYXIS) 30 ML UDC PO SCH ×3 (08:24→16:19)
[2016-11-22] MEDS: VIT B CMPLX 3/FA/VIT C/BIOTIN 1 TAB TABLET PO SCH (08:24)
[2016-11-22] MEDS: SERTRALINE HCL 25 MG TABLET PO SCH (08:24)
[2016-11-22] MEDS: HEPARIN SODIUM, PORCINE 5000 UNITS/1 ML VIAL SQ SCH ×2 (08:24→21:09)
[2016-11-22] MEDS: SITAGLIPTIN PHOSPHATE 25 MG TABLET PO SCH (08:24)
[2016-11-22] MEDS: POLYVINYL ALCOHOL 15 ML BOTTLE EACHEYE SCH ×4 (08:24→21:09)
[2016-11-22] MEDS: ZINC OXIDE 56.7 GM TUBE TP SCH ×2 (08:25→21:09)
[2016-11-22] MEDS: MINERAL OIL/PETROL OINT 396 GM JAR TP SCH ×2 (08:25→21:09)
[2016-11-22] MEDS: HYDROGEN PEROXIDE 480 ML BOTTLE TP SCH ×2 (08:25→21:09)
[2016-11-22] MEDS: GUAIFENESIN/D-METHORPHAN HB 5 ML UDC PO PRN ×2 (08:38→21:10)
[2016-11-22] MEDS: BUDESONIDE RESPULE INH 0.5 MG/2 ML AMPUL.NEB IH SCH ×2 (08:40→21:00)
--- NOTE | 2016-11-22 11:47 | NUR ---
Reported to Dr. Navarrete that BP is running high ranging 107/64 to 158/99 most of the time DBP > 90. Resident not on any routineor PRN BP meds. Resident also receiving Naproxen 500mg. F1kodyi and pharmacy recommending to review the use of medication since it is not good for renal patients. No new order given. Resident refusing to take Tramadol PRN for pain, he stated that Naproxen works better for him. Patient also said he does not have the "feeling of choking" when he is sleeping, the new medication Robinul helps.
--- NOTE | 2016-11-22 14:15 | NUR ---
INTERDISCIPLINARY PLAN OF CARE CONFERENCE was held today. Brother unable to attend. Dr Gardner and the interdisciplinary team reviewed the current plan of care in detail, as well as treatments and medication. Resident no longer complaining of "choking" feeling when sleeping. Zoloft was reduced from 25mg to 12.5mg daily PO per pharmacy's request and Dr. Gardner agreed.
[2016-11-22 19:39] VITALS: BP 154/104
[2016-11-22] MEDS: GABAPENTIN 100 MG CAPSULE PO SCH (21:09)
[2016-11-22] MEDS: DOCUSATE SODIUM 100 MG CAPSULE PO SCH (21:09)
[2016-11-22] MEDS: ASCORBIC ACID 500 MG TABLET PO SCH (21:09)
[2016-11-22] MEDS: TEMAZEPAM 15 MG CAPSULE PO SCH (21:10)
[2016-11-22] MEDS: NAPROXEN 500 MG TABLET PO PRN (21:10)
[2016-11-22] MEDS: MONTELUKAST SODIUM (10MG) 10 MG TABLET PO SCH (21:10)
[2016-11-22] MEDS: [UNRECOGNIZED DRUG - OTHER] TP SCH (21:10)
[2016-11-22] MEDS: ATARAX 25 MG PO PRN (21:10)
[2016-11-23] MEDS: IPRATROPIUM NEB FS 0.5 MG/2.5 ML AMPUL.NEB IH SCH ×4 (01:29→20:11)
[2016-11-23] MEDS: ALBUTEROL FS 2.5 MG/3 ML VIAL.NEB NEB SCH ×4 (01:29→20:11)
[2016-11-23] MEDS: GLYCOPYRROLATE 1 MG TABLET GT SCH ×4 (03:30→20:46)
[2016-11-23] MEDS: PANTOPRAZOLE 40 MG TABLET.DR PO SCH (05:18)
[2016-11-23] MEDS: BLOOD SUGAR DIAGNOSTIC 1 EACH STRIP VI SCH ×3 (06:40→17:48)
[2016-11-23] MEDS: INSULIN LISPRO/ASPART 100 UNIT/ML CARTRIDGE SQ PRN (06:40)
[2016-11-23 07:29] VITALS: BP 153/98
[2016-11-23] MEDS: POLYVINYL ALCOHOL 15 ML BOTTLE EACHEYE SCH ×4 (08:13→20:45)
[2016-11-23] MEDS: PROSOURCE / PROSTAT (PYXIS) 30 ML UDC PO SCH ×3 (08:15→17:09)
[2016-11-23] MEDS: VIT B CMPLX 3/FA/VIT C/BIOTIN 1 TAB TABLET PO SCH (08:17)
[2016-11-23] MEDS: SITAGLIPTIN PHOSPHATE 25 MG TABLET PO SCH (08:21)
[2016-11-23] MEDS: MINERAL OIL/PETROL OINT 396 GM JAR TP SCH ×2 (08:23→20:45)
[2016-11-23] MEDS: HYDROGEN PEROXIDE 480 ML BOTTLE TP SCH ×2 (08:24→20:45)
[2016-11-23] MEDS: ZINC OXIDE 56.7 GM TUBE TP SCH ×2 (08:24→20:46)
[2016-11-23] MEDS: SERTRALINE HCL 25 MG TABLET PO SCH (08:25)
[2016-11-23] MEDS: HEPARIN SODIUM, PORCINE 5000 UNITS/1 ML VIAL SQ SCH ×2 (08:30→20:45)
[2016-11-23] MEDS: GUAIFENESIN/D-METHORPHAN HB 5 ML UDC PO PRN ×2 (08:39→20:46)
[2016-11-23] MEDS: BUDESONIDE RESPULE INH 0.5 MG/2 ML AMPUL.NEB IH SCH ×2 (08:47→20:26)
--- NOTE | 2016-11-23 10:08 | NUR ---
RN NOTES PATIENT WENT OUTSIDE CLINIC FOR DIALYSIS TREATMENT VIA RNEY. ALERT AND ORIENTED X3 . V/S TAKEN [facility]: BP 153/98, P78, R 20 TEMP 97.4F. PATIENT LEFT HOSPITAL VIA AMBULANCE IN STABLE CONDITION.
--- NOTE | 2016-11-23 12:21 | NUR ---
RN NOTES PATIENT BLOOD SUGAR NOT TAKEN AT 1200, PT WENT FOR DIALYSIS THIS MORNING AND NOT BACK YET.
--- NOTE | 2016-11-23 13:01 | NUR ---
RN NOTES PATIENT'S BLOOD PRESSURE WENT DOWN FROM 160/106mmHg TO 147/91mmHg AND PULSE 82 AT THIS TIME. PT IS NOT ON ANY SIGNS OF DISTRESS. CHARGE NURSE MADE AND SAID THAT SHE LEFT MESSAGE TO MD AND STILL AWAITING TO CALL BACK. WILL CONTINUE TO MONITOR.
[2016-11-23 14:10] VITALS: BP 160/106
--- NOTE | 2016-11-23 14:16 | NUR ---
RN NOTES Resident came back from dialysis tx in stable condition via gurney accompanied by 3 emt's from [employer]. No bleeding noted on permacath on the R upper chest wall. Dressing in place and dry with no bleeding noted. no c/o pain voiced. V/S taken: BP 160/106, P 90, R 97.8 and sp02 96%. Charge nurse made aware. will continue t o monitor patient.
--- NOTE | 2016-11-23 14:50 | NUR ---
Paged Dr. Mcfarland, lockstitch front maker for Dr. Navarrete to report elevated BP 160/106. Resident sleeping at this time but easily arousable. Awaiting for MD to call back.
[2016-11-23 15:00] VITALS: BP 147/91
[2016-11-23 19:51] VITALS: BP 143/94
[2016-11-23] MEDS: ASCORBIC ACID 500 MG TABLET PO SCH (20:45)
[2016-11-23] MEDS: DOCUSATE SODIUM 100 MG CAPSULE PO SCH (20:45)
[2016-11-23] MEDS: NAPROXEN 500 MG TABLET PO PRN (20:46)
[2016-11-23] MEDS: ATARAX 25 MG PO PRN (20:46)
[2016-11-23] MEDS: [UNRECOGNIZED DRUG - OTHER] TP SCH (21:32)
[2016-11-23] MEDS: GABAPENTIN 100 MG CAPSULE PO SCH (21:32)
[2016-11-23] MEDS: TEMAZEPAM 15 MG CAPSULE PO SCH (21:32)
[2016-11-23] MEDS: MONTELUKAST SODIUM (10MG) 10 MG TABLET PO SCH (21:32)
--- NOTE | 2016-11-24 02:00 | NUR ---
Pt BP improved to 144/89. patient asleep with no s/s of discomfort or distress. will continue to monitor.
[2016-11-24] MEDS: IPRATROPIUM NEB FS 0.5 MG/2.5 ML AMPUL.NEB IH SCH ×4 (02:25→20:04)
[2016-11-24] MEDS: ALBUTEROL FS 2.5 MG/3 ML VIAL.NEB NEB SCH ×4 (02:25→20:04)
[2016-11-24] MEDS: GLYCOPYRROLATE 1 MG TABLET GT SCH ×4 (03:30→20:40)
[2016-11-24] MEDS: PANTOPRAZOLE 40 MG TABLET.DR PO SCH (05:43)
[2016-11-24] MEDS: INSULIN LISPRO/ASPART 100 UNIT/ML CARTRIDGE SQ PRN (06:39)
[2016-11-24] MEDS: BLOOD SUGAR DIAGNOSTIC 1 EACH STRIP VI SCH ×3 (06:39→16:51)
[2016-11-24] MEDS: BUDESONIDE RESPULE INH 0.5 MG/2 ML AMPUL.NEB IH SCH ×2 (07:24→20:49)
[2016-11-24 07:30] VITALS: BP 148/90
[2016-11-24] MEDS: ZINC OXIDE 56.7 GM TUBE TP SCH ×2 (09:00→20:40)
[2016-11-24] MEDS: HYDROGEN PEROXIDE 480 ML BOTTLE TP SCH ×2 (09:00→20:40)
[2016-11-24] MEDS: POLYVINYL ALCOHOL 15 ML BOTTLE EACHEYE SCH ×4 (09:38→20:39)
[2016-11-24] MEDS: VIT B CMPLX 3/FA/VIT C/BIOTIN 1 TAB TABLET PO SCH (09:53)
[2016-11-24] MEDS: SERTRALINE HCL 25 MG TABLET PO SCH (09:53)
[2016-11-24] MEDS: SITAGLIPTIN PHOSPHATE 25 MG TABLET PO SCH (09:53)
[2016-11-24] MEDS: MINERAL OIL/PETROL OINT 396 GM JAR TP SCH ×2 (09:53→20:39)
[2016-11-24] MEDS: PROSOURCE / PROSTAT (PYXIS) 30 ML UDC PO SCH ×3 (09:53→16:51)
[2016-11-24] MEDS: HEPARIN SODIUM, PORCINE 5000 UNITS/1 ML VIAL SQ SCH ×2 (10:18→20:39)
[2016-11-24] MEDS: GUAIFENESIN/D-METHORPHAN HB 5 ML UDC PO PRN (15:12)
[2016-11-24 20:04] VITALS: BP 135/90
[2016-11-24] MEDS: ASCORBIC ACID 500 MG TABLET PO SCH (20:39)
[2016-11-24] MEDS: DOCUSATE SODIUM 100 MG CAPSULE PO SCH (20:39)
[2016-11-24] MEDS: TEMAZEPAM 15 MG CAPSULE PO SCH (22:08)
[2016-11-24] MEDS: [UNRECOGNIZED DRUG - OTHER] TP SCH (22:08)
[2016-11-24] MEDS: GABAPENTIN 100 MG CAPSULE PO SCH (22:08)
[2016-11-24] MEDS: MONTELUKAST SODIUM (10MG) 10 MG TABLET PO SCH (22:08)
[2016-11-25] MEDS: IPRATROPIUM NEB FS 0.5 MG/2.5 ML AMPUL.NEB IH SCH ×4 (02:14→19:30)
[2016-11-25] MEDS: ALBUTEROL FS 2.5 MG/3 ML VIAL.NEB NEB SCH ×4 (02:14→19:30)
[2016-11-25] MEDS: GLYCOPYRROLATE 1 MG TABLET GT SCH ×4 (03:14→21:19)
[2016-11-25] MEDS: PANTOPRAZOLE 40 MG TABLET.DR PO SCH (06:08)
[2016-11-25] MEDS: BLOOD SUGAR DIAGNOSTIC 1 EACH STRIP VI SCH ×2 (07:30→12:00)
[2016-11-25] MEDS: BUDESONIDE RESPULE INH 0.5 MG/2 ML AMPUL.NEB IH SCH ×2 (07:57→20:48)
[2016-11-25 08:00] VITALS: BP 141/93
[2016-11-25] MEDS: VIT B CMPLX 3/FA/VIT C/BIOTIN 1 TAB TABLET PO SCH (09:00)
[2016-11-25] MEDS: MINERAL OIL/PETROL OINT 396 GM JAR TP SCH ×2 (09:00→21:19)
[2016-11-25] MEDS: HYDROGEN PEROXIDE 480 ML BOTTLE TP SCH ×2 (09:00→21:19)
[2016-11-25] MEDS: HEPARIN SODIUM, PORCINE 5000 UNITS/1 ML VIAL SQ SCH ×2 (09:00→21:19)
[2016-11-25] MEDS: SERTRALINE HCL 25 MG TABLET PO SCH (09:00)
[2016-11-25] MEDS: POLYVINYL ALCOHOL 15 ML BOTTLE EACHEYE SCH ×4 (09:00→21:18)
[2016-11-25] MEDS: PROSOURCE / PROSTAT (PYXIS) 30 ML UDC PO SCH ×3 (09:00→16:38)
[2016-11-25] MEDS: SITAGLIPTIN PHOSPHATE 25 MG TABLET PO SCH (09:00)
[2016-11-25] MEDS: ZINC OXIDE 56.7 GM TUBE TP SCH ×2 (09:00→21:19)
--- NOTE | 2016-11-25 10:20 | NUR ---
Pt was seen by Dr. Gardner. Pt verbalized that he has difficulty breathing when he is lying on his sides. Dr. Gardner examined pt and said he is wheezing. Received order to give Prednisone 20 mg po daily. Addendum: 11/25/16 at 1055 by DIGNA VALDEZ RN Notified pt of new Prednisone order.
[2016-11-25] MEDS: predniSONE 20 MG TABLET PO SCH (10:30)
[2016-11-25] MEDS: INSULIN LISPRO/ASPART 100 UNIT/ML CARTRIDGE SQ PRN ×3 (11:34→17:04)
[2016-11-25] MEDS: GUAIFENESIN/D-METHORPHAN HB 5 ML UDC PO PRN ×2 (11:51→21:20)
[2016-11-25] MEDS: BISACODYL SUPP (10 MG) 10 MG/SUPP.RECT SUPP.RECT RC PRN (16:38)
[2016-11-25 19:56] VITALS: BP 153/112
[2016-11-25] MEDS: DOCUSATE SODIUM 100 MG CAPSULE PO SCH (21:18)
[2016-11-25] MEDS: ASCORBIC ACID 500 MG TABLET PO SCH (21:18)
[2016-11-25] MEDS: [UNRECOGNIZED DRUG - OTHER] TP SCH (21:19)
[2016-11-25] MEDS: TEMAZEPAM 15 MG CAPSULE PO SCH (21:19)
[2016-11-25] MEDS: MONTELUKAST SODIUM (10MG) 10 MG TABLET PO SCH (21:19)
[2016-11-25] MEDS: GABAPENTIN 100 MG CAPSULE PO SCH (21:19)
[2016-11-26] MEDS: IPRATROPIUM NEB FS 0.5 MG/2.5 ML AMPUL.NEB IH SCH ×4 (02:10→19:54)
[2016-11-26] MEDS: ALBUTEROL FS 2.5 MG/3 ML VIAL.NEB NEB SCH ×4 (02:10→19:54)
[2016-11-26] MEDS: GLYCOPYRROLATE 1 MG TABLET GT SCH ×4 (03:49→21:08)
[2016-11-26] MEDS: PANTOPRAZOLE 40 MG TABLET.DR PO SCH (05:55)
[2016-11-26] MEDS: BLOOD SUGAR DIAGNOSTIC 1 EACH STRIP VI SCH ×3 (07:53→16:50)
[2016-11-26 08:00] VITALS: BP 117/84
[2016-11-26] MEDS: BUDESONIDE RESPULE INH 0.5 MG/2 ML AMPUL.NEB IH SCH ×2 (08:09→21:00)
[2016-11-26] MEDS: SITAGLIPTIN PHOSPHATE 25 MG TABLET PO SCH (08:33)
[2016-11-26] MEDS: POLYVINYL ALCOHOL 15 ML BOTTLE EACHEYE SCH ×4 (08:33→21:07)
[2016-11-26] MEDS: predniSONE 20 MG TABLET PO SCH (08:34)
[2016-11-26] MEDS: PROSOURCE / PROSTAT (PYXIS) 30 ML UDC PO SCH ×3 (08:34→16:47)
[2016-11-26] MEDS: SERTRALINE HCL 25 MG TABLET PO SCH (08:34)
[2016-11-26] MEDS: VIT B CMPLX 3/FA/VIT C/BIOTIN 1 TAB TABLET PO SCH (08:44)
[2016-11-26] MEDS: MINERAL OIL/PETROL OINT 396 GM JAR TP SCH ×2 (08:47→21:07)
[2016-11-26] MEDS: HEPARIN SODIUM, PORCINE 5000 UNITS/1 ML VIAL SQ SCH ×2 (08:47→21:07)
[2016-11-26] MEDS: ZINC OXIDE 56.7 GM TUBE TP SCH ×2 (08:47→21:07)
[2016-11-26] MEDS: GUAIFENESIN/D-METHORPHAN HB 5 ML UDC PO PRN (09:14)
--- NOTE | 2016-11-26 10:10 | NUR ---
Notified Dr. Gardner that pt's blood pressure has been running high and pt has no routine or PRN BP medications. Also notified Dr. Gardner that sometimes pt refuses Robinul. Dr. Gardner ordered to give Clonidine 0.1 mg po q 6 PRN for SBP greater than 155 or DBP greater than 100.
[2016-11-26] MEDS: NAPROXEN 500 MG TABLET PO PRN (15:00)
[2016-11-26] MEDS: HYDROGEN PEROXIDE 480 ML BOTTLE TP SCH ×2 (15:00→21:07)
[2016-11-26] MEDS: INSULIN LISPRO/ASPART 100 UNIT/ML CARTRIDGE SQ PRN (16:52)
[2016-11-26 19:53] VITALS: BP 144/99
[2016-11-26] MEDS: DOCUSATE SODIUM 100 MG CAPSULE PO SCH (21:07)
[2016-11-26] MEDS: ASCORBIC ACID 500 MG TABLET PO SCH (21:07)
[2016-11-26] MEDS: TEMAZEPAM 15 MG CAPSULE PO SCH (21:08)
[2016-11-26] MEDS: [UNRECOGNIZED DRUG - OTHER] TP SCH (21:08)
[2016-11-26] MEDS: MONTELUKAST SODIUM (10MG) 10 MG TABLET PO SCH (21:08)
[2016-11-26] MEDS: GABAPENTIN 100 MG CAPSULE PO SCH (21:08)
[2016-11-27] MEDS: ALBUTEROL FS 2.5 MG/3 ML VIAL.NEB NEB SCH ×4 (01:51→19:08)
[2016-11-27] MEDS: IPRATROPIUM NEB FS 0.5 MG/2.5 ML AMPUL.NEB IH SCH ×4 (01:51→19:08)
[2016-11-27] MEDS: GLYCOPYRROLATE 1 MG TABLET GT SCH ×4 (03:30→21:05)
[2016-11-27] MEDS: PANTOPRAZOLE 40 MG TABLET.DR PO SCH (05:02)
[2016-11-27] MEDS: BLOOD SUGAR DIAGNOSTIC 1 EACH STRIP VI SCH ×3 (07:25→17:14)
[2016-11-27] MEDS: BUDESONIDE RESPULE INH 0.5 MG/2 ML AMPUL.NEB IH SCH ×2 (08:02→19:09)
[2016-11-27] MEDS: SITAGLIPTIN PHOSPHATE 25 MG TABLET PO SCH (09:01)
[2016-11-27] MEDS: predniSONE 20 MG TABLET PO SCH (09:01)
[2016-11-27] MEDS: POLYVINYL ALCOHOL 15 ML BOTTLE EACHEYE SCH ×4 (09:01→21:04)
[2016-11-27] MEDS: PROSOURCE / PROSTAT (PYXIS) 30 ML UDC PO SCH ×3 (09:01→16:18)
[2016-11-27] MEDS: SERTRALINE HCL 25 MG TABLET PO SCH (09:01)
[2016-11-27] MEDS: VIT B CMPLX 3/FA/VIT C/BIOTIN 1 TAB TABLET PO SCH (09:01)
[2016-11-27] MEDS: MINERAL OIL/PETROL OINT 396 GM JAR TP SCH ×2 (09:02→21:05)
[2016-11-27] MEDS: HEPARIN SODIUM, PORCINE 5000 UNITS/1 ML VIAL SQ SCH ×2 (09:02→21:05)
[2016-11-27] MEDS: HYDROGEN PEROXIDE 480 ML BOTTLE TP SCH ×2 (09:03→21:05)
[2016-11-27] MEDS: ZINC OXIDE 56.7 GM TUBE TP SCH ×2 (09:03→21:05)
[2016-11-27 12:27] VITALS: BP 118/66
[2016-11-27] MEDS: GUAIFENESIN/D-METHORPHAN HB 5 ML UDC PO PRN (16:19)
[2016-11-27] MEDS: NAPROXEN 500 MG TABLET PO PRN (16:19)
[2016-11-27 20:04] VITALS: BP 145/98
[2016-11-27] MEDS: DOCUSATE SODIUM 100 MG CAPSULE PO SCH (21:04)
[2016-11-27] MEDS: ASCORBIC ACID 500 MG TABLET PO SCH (21:04)
[2016-11-27] MEDS: [UNRECOGNIZED DRUG - OTHER] TP SCH (21:05)
[2016-11-27] MEDS: TEMAZEPAM 15 MG CAPSULE PO SCH (21:05)
[2016-11-27] MEDS: MONTELUKAST SODIUM (10MG) 10 MG TABLET PO SCH (21:05)
[2016-11-27] MEDS: GABAPENTIN 100 MG CAPSULE PO SCH (21:05)
[2016-11-28] MEDS: ALBUTEROL FS 2.5 MG/3 ML VIAL.NEB NEB SCH ×4 (01:22→19:45)
[2016-11-28] MEDS: IPRATROPIUM NEB FS 0.5 MG/2.5 ML AMPUL.NEB IH SCH ×4 (01:22→19:45)
[2016-11-28] MEDS: GLYCOPYRROLATE 1 MG TABLET GT SCH ×4 (03:30→21:18)
[2016-11-28] MEDS: PANTOPRAZOLE 40 MG TABLET.DR PO SCH (05:35)
[2016-11-28] MEDS: BLOOD SUGAR DIAGNOSTIC 1 EACH STRIP VI SCH ×3 (07:22→16:49)
[2016-11-28 07:44] VITALS: BP 129/83
[2016-11-28] MEDS: BUDESONIDE RESPULE INH 0.5 MG/2 ML AMPUL.NEB IH SCH ×2 (08:00→19:45)
[2016-11-28] MEDS: VIT B CMPLX 3/FA/VIT C/BIOTIN 1 TAB TABLET PO SCH (08:32)
[2016-11-28] MEDS: PROSOURCE / PROSTAT (PYXIS) 30 ML UDC PO SCH ×3 (08:32→16:39)
[2016-11-28] MEDS: POLYVINYL ALCOHOL 15 ML BOTTLE EACHEYE SCH ×4 (08:32→21:15)
[2016-11-28] MEDS: SERTRALINE HCL 25 MG TABLET PO SCH (08:32)
[2016-11-28] MEDS: MINERAL OIL/PETROL OINT 396 GM JAR TP SCH ×2 (08:32→21:16)
[2016-11-28] MEDS: HYDROGEN PEROXIDE 480 ML BOTTLE TP SCH ×2 (08:32→21:16)
[2016-11-28] MEDS: predniSONE 20 MG TABLET PO SCH (08:32)
[2016-11-28] MEDS: HEPARIN SODIUM, PORCINE 5000 UNITS/1 ML VIAL SQ SCH ×2 (08:32→21:16)
[2016-11-28] MEDS: ZINC OXIDE 56.7 GM TUBE TP SCH ×2 (08:32→21:16)
[2016-11-28] MEDS: SITAGLIPTIN PHOSPHATE 25 MG TABLET PO SCH (08:32)
[2016-11-28] MEDS: GUAIFENESIN/D-METHORPHAN HB 5 ML UDC PO PRN ×2 (15:33→22:01)
[2016-11-28] MEDS: BISACODYL SUPP (10 MG) 10 MG/SUPP.RECT SUPP.RECT RC PRN (15:33)
[2016-11-28] MEDS: MAG HYDROX/AL HYDROX/SIMETH 30 ML UDC PO PRN (15:50)
[2016-11-28] MEDS: INSULIN LISPRO/ASPART 100 UNIT/ML CARTRIDGE SQ PRN (16:51)
[2016-11-28 19:51] VITALS: BP 142/89
[2016-11-28] MEDS: DOCUSATE SODIUM 100 MG CAPSULE PO SCH (21:15)
[2016-11-28] MEDS: ASCORBIC ACID 500 MG TABLET PO SCH (21:16)
[2016-11-28] MEDS: GABAPENTIN 100 MG CAPSULE PO SCH (21:16)
[2016-11-28] MEDS: TEMAZEPAM 15 MG CAPSULE PO SCH (21:17)
[2016-11-28] MEDS: MONTELUKAST SODIUM (10MG) 10 MG TABLET PO SCH (21:17)
[2016-11-28] MEDS: [UNRECOGNIZED DRUG - OTHER] TP SCH (21:17)
[2016-11-28] MEDS: NAPROXEN 500 MG TABLET PO PRN (22:01)
[2016-11-29] MEDS: ALBUTEROL FS 2.5 MG/3 ML VIAL.NEB NEB SCH ×4 (01:05→19:21)
[2016-11-29] MEDS: IPRATROPIUM NEB FS 0.5 MG/2.5 ML AMPUL.NEB IH SCH ×4 (01:05→19:21)
[2016-11-29] MEDS: GLYCOPYRROLATE 1 MG TABLET GT SCH ×4 (03:30→21:14)
[2016-11-29] MEDS: PANTOPRAZOLE 40 MG TABLET.DR PO SCH (06:28)
[2016-11-29] MEDS: BLOOD SUGAR DIAGNOSTIC 1 EACH STRIP VI SCH ×3 (07:12→16:44)
[2016-11-29] MEDS: INSULIN LISPRO/ASPART 100 UNIT/ML CARTRIDGE SQ PRN ×3 (07:13→17:01)
[2016-11-29 07:44] VITALS: BP 134/97
[2016-11-29] MEDS: BUDESONIDE RESPULE INH 0.5 MG/2 ML AMPUL.NEB IH SCH ×2 (08:38→20:02)
[2016-11-29] MEDS: POLYVINYL ALCOHOL 15 ML BOTTLE EACHEYE SCH ×4 (09:48→21:14)
[2016-11-29] MEDS: PROSOURCE / PROSTAT (PYXIS) 30 ML UDC PO SCH ×3 (09:48→16:44)
[2016-11-29] MEDS: VIT B CMPLX 3/FA/VIT C/BIOTIN 1 TAB TABLET PO SCH (09:48)
[2016-11-29] MEDS: SITAGLIPTIN PHOSPHATE 25 MG TABLET PO SCH (09:48)
[2016-11-29] MEDS: predniSONE 20 MG TABLET PO SCH (09:48)
[2016-11-29] MEDS: SERTRALINE HCL 25 MG TABLET PO SCH (09:48)
[2016-11-29] MEDS: HEPARIN SODIUM, PORCINE 5000 UNITS/1 ML VIAL SQ SCH ×2 (09:49→21:14)
[2016-11-29] MEDS: HYDROGEN PEROXIDE 480 ML BOTTLE TP SCH ×2 (09:49→21:14)
[2016-11-29] MEDS: MINERAL OIL/PETROL OINT 396 GM JAR TP SCH ×2 (09:49→21:14)
[2016-11-29] MEDS: ZINC OXIDE 56.7 GM TUBE TP SCH ×2 (09:49→21:14)
[2016-11-29] MEDS: GUAIFENESIN/D-METHORPHAN HB 5 ML UDC PO PRN ×2 (09:50→18:28)
[2016-11-29 19:57] VITALS: BP 146/105
[2016-11-29] MEDS: GABAPENTIN 100 MG CAPSULE PO SCH (21:14)
[2016-11-29] MEDS: ASCORBIC ACID 500 MG TABLET PO SCH (21:14)
[2016-11-29] MEDS: DOCUSATE SODIUM 100 MG CAPSULE PO SCH (21:14)
[2016-11-29] MEDS: [UNRECOGNIZED DRUG - OTHER] TP SCH (21:15)
[2016-11-29] MEDS: MONTELUKAST SODIUM (10MG) 10 MG TABLET PO SCH (21:15)
[2016-11-29] MEDS: TEMAZEPAM 15 MG CAPSULE PO SCH (21:15)
[2016-11-29] MEDS: NAPROXEN 500 MG TABLET PO PRN (21:15)
[2016-11-30] MEDS: ALBUTEROL FS 2.5 MG/3 ML VIAL.NEB NEB SCH ×4 (02:00→19:55)
[2016-11-30] MEDS: IPRATROPIUM NEB FS 0.5 MG/2.5 ML AMPUL.NEB IH SCH ×4 (02:00→19:55)
[2016-11-30] MEDS: GLYCOPYRROLATE 1 MG TABLET GT SCH ×4 (03:30→20:50)
[2016-11-30] MEDS: PANTOPRAZOLE 40 MG TABLET.DR PO SCH (06:11)
[2016-11-30] MEDS: BLOOD SUGAR DIAGNOSTIC 1 EACH STRIP VI SCH ×3 (06:52→17:19)
[2016-11-30] MEDS: INSULIN LISPRO/ASPART 100 UNIT/ML CARTRIDGE SQ PRN ×2 (06:53→17:20)
[2016-11-30 07:51] VITALS: BP 137/92
[2016-11-30] MEDS: predniSONE 20 MG TABLET PO SCH (08:16)
[2016-11-30] MEDS: SITAGLIPTIN PHOSPHATE 25 MG TABLET PO SCH (08:16)
[2016-11-30] MEDS: SERTRALINE HCL 25 MG TABLET PO SCH (08:16)
[2016-11-30] MEDS: PROSOURCE / PROSTAT (PYXIS) 30 ML UDC PO SCH ×3 (08:16→17:19)
[2016-11-30] MEDS: VIT B CMPLX 3/FA/VIT C/BIOTIN 1 TAB TABLET PO SCH (08:16)
[2016-11-30] MEDS: POLYVINYL ALCOHOL 15 ML BOTTLE EACHEYE SCH ×4 (08:16→20:50)
[2016-11-30] MEDS: HEPARIN SODIUM, PORCINE 5000 UNITS/1 ML VIAL SQ SCH ×2 (08:17→21:00)
[2016-11-30] MEDS: HYDROGEN PEROXIDE 480 ML BOTTLE TP SCH ×2 (08:17→20:50)
[2016-11-30] MEDS: ZINC OXIDE 56.7 GM TUBE TP SCH ×2 (08:17→20:50)
[2016-11-30] MEDS: MINERAL OIL/PETROL OINT 396 GM JAR TP SCH ×2 (08:17→20:50)
[2016-11-30] MEDS: NAPROXEN 500 MG TABLET PO PRN ×2 (08:18→17:19)
[2016-11-30] MEDS: GUAIFENESIN/D-METHORPHAN HB 5 ML UDC PO PRN ×2 (08:18→23:13)
[2016-11-30] MEDS: BUDESONIDE RESPULE INH 0.5 MG/2 ML AMPUL.NEB IH SCH ×2 (09:00→20:38)
[2016-11-30] MEDS: MAG HYDROX/AL HYDROX/SIMETH 30 ML UDC PO PRN (14:45)
[2016-11-30 19:45] VITALS: BP 132/88
[2016-11-30] MEDS: ASCORBIC ACID 500 MG TABLET PO SCH (20:50)
[2016-11-30] MEDS: DOCUSATE SODIUM 100 MG CAPSULE PO SCH (20:50)
[2016-11-30] MEDS: GABAPENTIN 100 MG CAPSULE PO SCH (22:00)
[2016-11-30] MEDS: [UNRECOGNIZED DRUG - OTHER] TP SCH (22:00)
[2016-11-30] MEDS: MONTELUKAST SODIUM (10MG) 10 MG TABLET PO SCH (22:00)
[2016-11-30] MEDS: TEMAZEPAM 15 MG CAPSULE PO SCH (22:00)
[2016-12-01] MEDS: ALBUTEROL FS 2.5 MG/3 ML VIAL.NEB NEB SCH ×4 (01:30→19:11)
[2016-12-01] MEDS: IPRATROPIUM NEB FS 0.5 MG/2.5 ML AMPUL.NEB IH SCH ×4 (01:30→19:11)
[2016-12-01] MEDS: GLYCOPYRROLATE 1 MG TABLET GT SCH ×4 (03:30→21:01)
[2016-12-01] MEDS: PANTOPRAZOLE 40 MG TABLET.DR PO SCH (06:29)
[2016-12-01] MEDS: BLOOD SUGAR DIAGNOSTIC 1 EACH STRIP VI SCH ×3 (06:52→17:41)
[2016-12-01] MEDS: INSULIN LISPRO/ASPART 100 UNIT/ML CARTRIDGE SQ PRN ×2 (06:53→13:05)
[2016-12-01 07:35] VITALS: BP 137/77
[2016-12-01] MEDS: BUDESONIDE RESPULE INH 0.5 MG/2 ML AMPUL.NEB IH SCH ×2 (08:52→20:57)
[2016-12-01] MEDS: predniSONE 20 MG TABLET PO SCH (08:54)
--- NOTE | 2016-12-01 09:00 | NUR ---
Seen and examined by Dr. Gardner, NNO given.
[2016-12-01] MEDS: POLYVINYL ALCOHOL 15 ML BOTTLE EACHEYE SCH ×4 (09:42→21:00)
[2016-12-01] MEDS: SITAGLIPTIN PHOSPHATE 25 MG TABLET PO SCH (09:43)
[2016-12-01] MEDS: MINERAL OIL/PETROL OINT 396 GM JAR TP SCH ×2 (09:43→21:00)
[2016-12-01] MEDS: PROSOURCE / PROSTAT (PYXIS) 30 ML UDC PO SCH ×3 (09:43→17:41)
[2016-12-01] MEDS: SERTRALINE HCL 25 MG TABLET PO SCH (09:43)
[2016-12-01] MEDS: VIT B CMPLX 3/FA/VIT C/BIOTIN 1 TAB TABLET PO SCH (09:47)
[2016-12-01] MEDS: HEPARIN SODIUM, PORCINE 5000 UNITS/1 ML VIAL SQ SCH ×2 (09:47→21:00)
[2016-12-01] MEDS: predniSONE 10 MG TABLET PO SCH (10:00)
[2016-12-01] MEDS: ZINC OXIDE 56.7 GM TUBE TP SCH ×2 (11:45→21:01)
[2016-12-01] MEDS: HYDROGEN PEROXIDE 480 ML BOTTLE TP SCH ×2 (16:00→21:01)
[2016-12-01 19:47] VITALS: BP 142/99
[2016-12-01] MEDS: ASCORBIC ACID 500 MG TABLET PO SCH (21:00)
[2016-12-01] MEDS: DOCUSATE SODIUM 100 MG CAPSULE PO SCH (21:00)
[2016-12-01] MEDS: GUAIFENESIN/D-METHORPHAN HB 5 ML UDC PO PRN (21:01)
[2016-12-01] MEDS: NAPROXEN 500 MG TABLET PO PRN (21:01)
[2016-12-01] MEDS: [UNRECOGNIZED DRUG - OTHER] TP SCH (21:01)
[2016-12-01] MEDS: TEMAZEPAM 15 MG CAPSULE PO SCH (21:01)
[2016-12-01] MEDS: GABAPENTIN 100 MG CAPSULE PO SCH (21:01)
[2016-12-01] MEDS: MONTELUKAST SODIUM (10MG) 10 MG TABLET PO SCH (21:01)
[2016-12-02] MEDS: ALBUTEROL FS 2.5 MG/3 ML VIAL.NEB NEB SCH ×4 (01:03→20:16)
[2016-12-02] MEDS: IPRATROPIUM NEB FS 0.5 MG/2.5 ML AMPUL.NEB IH SCH ×4 (01:03→20:15)
[2016-12-02] MEDS: GLYCOPYRROLATE 1 MG TABLET GT SCH ×4 (03:30→21:04)
[2016-12-02] MEDS: BLOOD SUGAR DIAGNOSTIC 1 EACH STRIP VI SCH ×3 (06:50→17:19)
[2016-12-02] MEDS: PANTOPRAZOLE 40 MG TABLET.DR PO SCH (06:50)
[2016-12-02] MEDS: INSULIN LISPRO/ASPART 100 UNIT/ML CARTRIDGE SQ PRN ×3 (06:51→17:20)
[2016-12-02 07:51] VITALS: BP 147/94
[2016-12-02] MEDS: POLYVINYL ALCOHOL 15 ML BOTTLE EACHEYE SCH ×4 (08:33→21:02)
[2016-12-02] MEDS: SITAGLIPTIN PHOSPHATE 25 MG TABLET PO SCH (08:33)
[2016-12-02] MEDS: VIT B CMPLX 3/FA/VIT C/BIOTIN 1 TAB TABLET PO SCH (08:34)
[2016-12-02] MEDS: BUDESONIDE RESPULE INH 0.5 MG/2 ML AMPUL.NEB IH SCH ×2 (08:34→21:02)
[2016-12-02] MEDS: SERTRALINE HCL 25 MG TABLET PO SCH (08:34)
[2016-12-02] MEDS: HYDROGEN PEROXIDE 480 ML BOTTLE TP SCH ×2 (08:34→21:03)
[2016-12-02] MEDS: predniSONE 10 MG TABLET PO SCH (08:34)
[2016-12-02] MEDS: MINERAL OIL/PETROL OINT 396 GM JAR TP SCH ×2 (08:34→21:03)
[2016-12-02] MEDS: HEPARIN SODIUM, PORCINE 5000 UNITS/1 ML VIAL SQ SCH ×2 (08:34→21:03)
[2016-12-02] MEDS: PROSOURCE / PROSTAT (PYXIS) 30 ML UDC PO SCH ×3 (08:34→17:00)
[2016-12-02] MEDS: ZINC OXIDE 56.7 GM TUBE TP SCH ×2 (08:34→21:03)
--- NOTE | 2016-12-02 09:24 | NUR ---
Seen by Dr. Gardner. Notified him that pt was asking for Novasource renal supplement this morning but previous order was DC'd since pt was refusing it. Dr. Gardner ordered to give Novasource renal 1 carton po daily PRN.
[2016-12-02 19:55] VITALS: BP 131/89
[2016-12-02] MEDS: ASCORBIC ACID 500 MG TABLET PO SCH (21:02)
[2016-12-02] MEDS: DOCUSATE SODIUM 100 MG CAPSULE PO SCH (21:02)
[2016-12-02] MEDS: GABAPENTIN 100 MG CAPSULE PO SCH (21:04)
[2016-12-02] MEDS: [UNRECOGNIZED DRUG - OTHER] TP SCH (21:04)
[2016-12-02] MEDS: TEMAZEPAM 15 MG CAPSULE PO SCH (21:04)
[2016-12-02] MEDS: MONTELUKAST SODIUM (10MG) 10 MG TABLET PO SCH (21:04)
[2016-12-02] MEDS: GUAIFENESIN/D-METHORPHAN HB 5 ML UDC PO PRN (21:05)
[2016-12-03] MEDS: ALBUTEROL FS 2.5 MG/3 ML VIAL.NEB NEB SCH ×4 (02:21→20:03)
[2016-12-03] MEDS: IPRATROPIUM NEB FS 0.5 MG/2.5 ML AMPUL.NEB IH SCH ×4 (02:21→20:03)
[2016-12-03] MEDS: GLYCOPYRROLATE 1 MG TABLET GT SCH ×4 (03:30→21:53)
[2016-12-03] MEDS: PANTOPRAZOLE 40 MG TABLET.DR PO SCH (06:06)
[2016-12-03] MEDS: BLOOD SUGAR DIAGNOSTIC 1 EACH STRIP VI SCH ×3 (06:36→17:21)
[2016-12-03] MEDS: GUAIFENESIN/D-METHORPHAN HB 5 ML UDC PO PRN ×2 (06:48→22:08)
[2016-12-03 07:51] VITALS: BP 140/92
[2016-12-03] MEDS: BUDESONIDE RESPULE INH 0.5 MG/2 ML AMPUL.NEB IH SCH ×2 (08:06→20:03)
[2016-12-03] MEDS: POLYVINYL ALCOHOL 15 ML BOTTLE EACHEYE SCH ×4 (08:10→21:00)
[2016-12-03] MEDS: VIT B CMPLX 3/FA/VIT C/BIOTIN 1 TAB TABLET PO SCH (08:10)
[2016-12-03] MEDS: SITAGLIPTIN PHOSPHATE 25 MG TABLET PO SCH (08:10)
[2016-12-03] MEDS: predniSONE 10 MG TABLET PO SCH (08:11)
[2016-12-03] MEDS: SERTRALINE HCL 25 MG TABLET PO SCH (08:12)
[2016-12-03] MEDS: PROSOURCE / PROSTAT (PYXIS) 30 ML UDC PO SCH ×3 (08:12→17:21)
[2016-12-03] MEDS: HEPARIN SODIUM, PORCINE 5000 UNITS/1 ML VIAL SQ SCH ×2 (08:15→21:00)
[2016-12-03] MEDS: ZINC OXIDE 56.7 GM TUBE TP SCH ×2 (09:00→21:53)
[2016-12-03] MEDS: MINERAL OIL/PETROL OINT 396 GM JAR TP SCH ×2 (09:00→21:53)
[2016-12-03] MEDS: HYDROGEN PEROXIDE 480 ML BOTTLE TP SCH ×2 (15:30→21:53)
[2016-12-03] MEDS: INSULIN LISPRO/ASPART 100 UNIT/ML CARTRIDGE SQ PRN (17:23)
--- NOTE | 2016-12-03 19:50 | NUR ---
RN OPENING NOTES received report from ximena rn. pt is awake & alert. no gt feeding. able to swallow pills. no s/s of acute distress or sob noted. safety measures in place. will continue to monitor pt throughout the night for safety.
[2016-12-03 20:07] VITALS: BP 129/92
[2016-12-03] MEDS: DOCUSATE SODIUM 100 MG CAPSULE PO SCH (21:52)
[2016-12-03] MEDS: ASCORBIC ACID 500 MG TABLET PO SCH (21:53)
[2016-12-03] MEDS: GABAPENTIN 100 MG CAPSULE PO SCH (21:55)
[2016-12-03] MEDS: TEMAZEPAM 15 MG CAPSULE PO SCH (21:55)
[2016-12-03] MEDS: [UNRECOGNIZED DRUG - OTHER] TP SCH (21:56)
[2016-12-03] MEDS: MONTELUKAST SODIUM (10MG) 10 MG TABLET PO SCH (21:56)
[2016-12-04] MEDS: IPRATROPIUM NEB FS 0.5 MG/2.5 ML AMPUL.NEB IH SCH ×4 (01:32→19:40)
[2016-12-04] MEDS: ALBUTEROL FS 2.5 MG/3 ML VIAL.NEB NEB SCH ×4 (01:32→19:40)
[2016-12-04] MEDS: GLYCOPYRROLATE 1 MG TABLET GT SCH ×4 (03:30→21:19)
[2016-12-04] MEDS: PANTOPRAZOLE 40 MG TABLET.DR PO SCH (06:03)
[2016-12-04] MEDS: BLOOD SUGAR DIAGNOSTIC 1 EACH STRIP VI SCH ×3 (06:03→17:23)
--- NOTE | 2016-12-04 06:30 | NUR ---
ACCUCHECK BG 106. NO INSULIN COVERAGE NEEDED AT THIS TIME.
[2016-12-04 08:06] VITALS: BP 128/80
[2016-12-04] MEDS: BUDESONIDE RESPULE INH 0.5 MG/2 ML AMPUL.NEB IH SCH ×2 (08:33→19:40)
[2016-12-04] MEDS: MINERAL OIL/PETROL OINT 396 GM JAR TP SCH ×2 (09:32→21:18)
[2016-12-04] MEDS: PROSOURCE / PROSTAT (PYXIS) 30 ML UDC PO SCH ×3 (09:33→17:00)
[2016-12-04] MEDS: HYDROGEN PEROXIDE 480 ML BOTTLE TP SCH ×2 (09:33→21:19)
[2016-12-04] MEDS: POLYVINYL ALCOHOL 15 ML BOTTLE EACHEYE SCH ×4 (09:34→21:18)
[2016-12-04] MEDS: ZINC OXIDE 56.7 GM TUBE TP SCH ×2 (09:35→21:19)
[2016-12-04] MEDS: HEPARIN SODIUM, PORCINE 5000 UNITS/1 ML VIAL SQ SCH ×2 (09:35→21:18)
[2016-12-04] MEDS: predniSONE 10 MG TABLET PO SCH (09:36)
[2016-12-04] MEDS: SITAGLIPTIN PHOSPHATE 25 MG TABLET PO SCH (09:36)
[2016-12-04] MEDS: VIT B CMPLX 3/FA/VIT C/BIOTIN 1 TAB TABLET PO SCH (09:39)
[2016-12-04] MEDS: SERTRALINE HCL 25 MG TABLET PO SCH (09:41)
[2016-12-04] MEDS: GUAIFENESIN/D-METHORPHAN HB 5 ML UDC PO PRN ×2 (10:00→21:19)
[2016-12-04] MEDS: INSULIN LISPRO/ASPART 100 UNIT/ML CARTRIDGE SQ PRN ×2 (12:06→17:25)
[2016-12-04 19:23] VITALS: BP 141/92
[2016-12-04] MEDS: ASCORBIC ACID 500 MG TABLET PO SCH (21:18)
[2016-12-04] MEDS: DOCUSATE SODIUM 100 MG CAPSULE PO SCH (21:18)
[2016-12-04] MEDS: GABAPENTIN 100 MG CAPSULE PO SCH (21:19)
[2016-12-04] MEDS: MONTELUKAST SODIUM (10MG) 10 MG TABLET PO SCH (21:19)
[2016-12-04] MEDS: [UNRECOGNIZED DRUG - OTHER] TP SCH (21:19)
[2016-12-04] MEDS: TEMAZEPAM 15 MG CAPSULE PO SCH (21:19)
[2016-12-04] MEDS: NAPROXEN 500 MG TABLET PO PRN (21:19)
[2016-12-04] MEDS: ATARAX 25 MG PO PRN (21:19)
[2016-12-05] MEDS: IPRATROPIUM NEB FS 0.5 MG/2.5 ML AMPUL.NEB IH SCH ×4 (00:36→20:00)
[2016-12-05] MEDS: ALBUTEROL FS 2.5 MG/3 ML VIAL.NEB NEB SCH ×4 (00:36→20:00)
[2016-12-05] MEDS: GLYCOPYRROLATE 1 MG TABLET GT SCH ×4 (03:26→21:58)
[2016-12-05] MEDS: PANTOPRAZOLE 40 MG TABLET.DR PO SCH (05:37)
[2016-12-05] MEDS: INSULIN LISPRO/ASPART 100 UNIT/ML CARTRIDGE SQ PRN ×2 (06:36→17:27)
[2016-12-05] MEDS: BLOOD SUGAR DIAGNOSTIC 1 EACH STRIP VI SCH ×3 (06:36→17:27)
[2016-12-05] MEDS: predniSONE 10 MG TABLET PO SCH (08:19)
[2016-12-05] MEDS: SITAGLIPTIN PHOSPHATE 25 MG TABLET PO SCH (08:19)
[2016-12-05] MEDS: PROSOURCE / PROSTAT (PYXIS) 30 ML UDC PO SCH ×3 (08:19→17:27)
[2016-12-05] MEDS: POLYVINYL ALCOHOL 15 ML BOTTLE EACHEYE SCH ×4 (08:19→20:56)
[2016-12-05] MEDS: VIT B CMPLX 3/FA/VIT C/BIOTIN 1 TAB TABLET PO SCH (08:19)
[2016-12-05] MEDS: SERTRALINE HCL 25 MG TABLET PO SCH (08:20)
[2016-12-05] MEDS: HYDROGEN PEROXIDE 480 ML BOTTLE TP SCH ×2 (08:20→21:58)
[2016-12-05] MEDS: MINERAL OIL/PETROL OINT 396 GM JAR TP SCH ×2 (08:20→21:58)
[2016-12-05] MEDS: HEPARIN SODIUM, PORCINE 5000 UNITS/1 ML VIAL SQ SCH ×2 (08:20→20:56)
[2016-12-05] MEDS: GUAIFENESIN/D-METHORPHAN HB 5 ML UDC PO PRN ×2 (08:20→20:57)
[2016-12-05] MEDS: ZINC OXIDE 56.7 GM TUBE TP SCH ×2 (08:20→21:58)
[2016-12-05] MEDS: BUDESONIDE RESPULE INH 0.5 MG/2 ML AMPUL.NEB IH SCH ×2 (08:45→20:00)
[2016-12-05] MEDS: DOCUSATE SODIUM 100 MG CAPSULE PO SCH (20:56)
[2016-12-05] MEDS: ASCORBIC ACID 500 MG TABLET PO SCH (20:56)
[2016-12-05] MEDS: NAPROXEN 500 MG TABLET PO PRN (20:57)
[2016-12-05] MEDS: GABAPENTIN 100 MG CAPSULE PO SCH (21:58)
[2016-12-05] MEDS: TEMAZEPAM 15 MG CAPSULE PO SCH (21:59)
[2016-12-05] MEDS: [UNRECOGNIZED DRUG - OTHER] TP SCH (21:59)
[2016-12-05] MEDS: MONTELUKAST SODIUM (10MG) 10 MG TABLET PO SCH (21:59)
[2016-12-06] MEDS: IPRATROPIUM NEB FS 0.5 MG/2.5 ML AMPUL.NEB IH SCH ×4 (01:08→19:47)
[2016-12-06] MEDS: ALBUTEROL FS 2.5 MG/3 ML VIAL.NEB NEB SCH ×4 (01:08→19:47)
[2016-12-06] MEDS: GLYCOPYRROLATE 1 MG TABLET GT SCH ×3 (04:20→21:11)
[2016-12-06] MEDS: PANTOPRAZOLE 40 MG TABLET.DR PO SCH (05:49)
[2016-12-06] MEDS: BLOOD SUGAR DIAGNOSTIC 1 EACH STRIP VI SCH ×3 (07:00→17:20)
[2016-12-06] MEDS: INSULIN LISPRO/ASPART 100 UNIT/ML CARTRIDGE SQ PRN ×3 (07:01→17:20)
[2016-12-06 07:31] VITALS: BP 146/82
[2016-12-06] MEDS: BISACODYL SUPP (10 MG) 10 MG/SUPP.RECT SUPP.RECT RC PRN (07:39)
[2016-12-06] MEDS: VIT B CMPLX 3/FA/VIT C/BIOTIN 1 TAB TABLET PO SCH (08:06)
[2016-12-06] MEDS: POLYVINYL ALCOHOL 15 ML BOTTLE EACHEYE SCH ×4 (08:06→20:54)
[2016-12-06] MEDS: predniSONE 10 MG TABLET PO SCH (08:06)
[2016-12-06] MEDS: SITAGLIPTIN PHOSPHATE 25 MG TABLET PO SCH (08:06)
[2016-12-06] MEDS: PROSOURCE / PROSTAT (PYXIS) 30 ML UDC PO SCH ×3 (08:06→17:00)
[2016-12-06] MEDS: SERTRALINE HCL 25 MG TABLET PO SCH (08:07)
[2016-12-06] MEDS: HEPARIN SODIUM, PORCINE 5000 UNITS/1 ML VIAL SQ SCH ×2 (08:07→20:55)
[2016-12-06] MEDS: MINERAL OIL/PETROL OINT 396 GM JAR TP SCH ×2 (08:08→21:11)
[2016-12-06] MEDS: BUDESONIDE RESPULE INH 0.5 MG/2 ML AMPUL.NEB IH SCH ×2 (08:36→20:10)
[2016-12-06] MEDS: HYDROGEN PEROXIDE 480 ML BOTTLE TP SCH ×2 (09:00→21:11)
[2016-12-06] MEDS: ZINC OXIDE 56.7 GM TUBE TP SCH ×2 (09:00→21:11)
[2016-12-06 19:33] VITALS: BP 146/100
[2016-12-06] MEDS: ASCORBIC ACID 500 MG TABLET PO SCH (20:54)
[2016-12-06] MEDS: DOCUSATE SODIUM 100 MG CAPSULE PO SCH (20:54)
[2016-12-06] MEDS: GUAIFENESIN/D-METHORPHAN HB 5 ML UDC PO PRN (20:55)
[2016-12-06] MEDS: NAPROXEN 500 MG TABLET PO PRN (20:56)
[2016-12-06] MEDS: TEMAZEPAM 15 MG CAPSULE PO SCH (22:29)
[2016-12-06] MEDS: [UNRECOGNIZED DRUG - OTHER] TP SCH (22:29)
[2016-12-06] MEDS: GABAPENTIN 100 MG CAPSULE PO SCH (22:29)
[2016-12-06] MEDS: MONTELUKAST SODIUM (10MG) 10 MG TABLET PO SCH (22:29)
[2016-12-06] MEDS: ATARAX 25 MG PO PRN (22:31)
[2016-12-07] MEDS: ALBUTEROL FS 2.5 MG/3 ML VIAL.NEB NEB SCH ×4 (01:13→19:56)
[2016-12-07] MEDS: IPRATROPIUM NEB FS 0.5 MG/2.5 ML AMPUL.NEB IH SCH ×4 (01:13→19:56)
[2016-12-07] MEDS: GLYCOPYRROLATE 1 MG TABLET GT SCH ×3 (03:30→21:47)
[2016-12-07] MEDS: PANTOPRAZOLE 40 MG TABLET.DR PO SCH (06:04)
[2016-12-07] MEDS: INSULIN LISPRO/ASPART 100 UNIT/ML CARTRIDGE SQ PRN (06:52)
[2016-12-07] MEDS: BLOOD SUGAR DIAGNOSTIC 1 EACH STRIP VI SCH ×2 (06:52→12:00)
[2016-12-07 07:33] VITALS: BP 142/86
[2016-12-07] MEDS: VIT B CMPLX 3/FA/VIT C/BIOTIN 1 TAB TABLET PO SCH (08:20)
[2016-12-07] MEDS: SERTRALINE HCL 25 MG TABLET PO SCH (08:20)
[2016-12-07] MEDS: predniSONE 10 MG TABLET PO SCH (08:20)
[2016-12-07] MEDS: SITAGLIPTIN PHOSPHATE 25 MG TABLET PO SCH (08:20)
[2016-12-07] MEDS: PROSOURCE / PROSTAT (PYXIS) 30 ML UDC PO SCH ×3 (08:20→17:00)
[2016-12-07] MEDS: POLYVINYL ALCOHOL 15 ML BOTTLE EACHEYE SCH ×3 (08:20→21:47)
[2016-12-07] MEDS: MINERAL OIL/PETROL OINT 396 GM JAR TP SCH ×2 (08:21→21:48)
[2016-12-07] MEDS: HEPARIN SODIUM, PORCINE 5000 UNITS/1 ML VIAL SQ SCH ×2 (08:21→21:48)
[2016-12-07] MEDS: BUDESONIDE RESPULE INH 0.5 MG/2 ML AMPUL.NEB IH SCH ×2 (09:00→20:26)
--- NOTE | 2016-12-07 10:55 | NUR ---
Spoke with Mauricio from [facility] informing him of the delay in picking up resident due to transportation issues. According to Mauricio they can still accommodate patient even if he comes later but they might have to cut his time because they leave early today. Inform Mauricio to notify Dr. Walsh who is coming to the center to see another patient. Verbalized they will do.
--- NOTE | 2016-12-07 11:50 | NUR ---
Resident left for dialysis in stable condition. Report given to ambulance staff and sent medication list as requested by dialysis center.
--- NOTE | 2016-12-07 17:20 | NUR ---
Resident returned back from dialysis accompanied by 2 ambulance staff and an RT. Patient stable, not in distress, a bit irritated due to time he has to stay at dialysis center. Provide his dinner and get him comfortable in bed, call light eze reach. All due meds given.
[2016-12-07 19:42] VITALS: BP 143/97
[2016-12-07] MEDS: GUAIFENESIN/D-METHORPHAN HB 5 ML UDC PO PRN (20:08)
[2016-12-07] MEDS: ZINC OXIDE 56.7 GM TUBE TP SCH (21:46)
[2016-12-07] MEDS: HYDROGEN PEROXIDE 480 ML BOTTLE TP SCH (21:46)
[2016-12-07] MEDS: DOCUSATE SODIUM 100 MG CAPSULE PO SCH (21:47)
[2016-12-07] MEDS: [UNRECOGNIZED DRUG - OTHER] TP SCH (21:48)
[2016-12-07] MEDS: MONTELUKAST SODIUM (10MG) 10 MG TABLET PO SCH (21:48)
[2016-12-07] MEDS: GABAPENTIN 100 MG CAPSULE PO SCH (21:48)
[2016-12-07] MEDS: TEMAZEPAM 15 MG CAPSULE PO SCH (21:48)
[2016-12-07] MEDS: ASCORBIC ACID 500 MG TABLET PO SCH (21:49)
[2016-12-07] MEDS: NAPROXEN 500 MG TABLET PO PRN (21:58)
[2016-12-07] MEDS: ATARAX 25 MG PO PRN (21:59)
[2016-12-08] MEDS: IPRATROPIUM NEB FS 0.5 MG/2.5 ML AMPUL.NEB IH SCH ×4 (01:14→19:18)
[2016-12-08] MEDS: ALBUTEROL FS 2.5 MG/3 ML VIAL.NEB NEB SCH ×4 (01:14→19:18)
[2016-12-08] MEDS: GLYCOPYRROLATE 1 MG TABLET GT SCH ×4 (03:40→21:21)
[2016-12-08] MEDS: PANTOPRAZOLE 40 MG TABLET.DR PO SCH (05:40)
[2016-12-08] MEDS: INSULIN LISPRO/ASPART 100 UNIT/ML CARTRIDGE SQ PRN ×3 (06:59→17:58)
[2016-12-08] MEDS: BLOOD SUGAR DIAGNOSTIC 1 EACH STRIP VI SCH ×3 (07:30→17:57)
[2016-12-08 07:48] VITALS: BP 156/97
[2016-12-08] MEDS: POLYVINYL ALCOHOL 15 ML BOTTLE EACHEYE SCH ×4 (08:31→21:15)
[2016-12-08] MEDS: SERTRALINE HCL 25 MG TABLET PO SCH (08:31)
[2016-12-08] MEDS: SITAGLIPTIN PHOSPHATE 25 MG TABLET PO SCH (08:31)
[2016-12-08] MEDS: VIT B CMPLX 3/FA/VIT C/BIOTIN 1 TAB TABLET PO SCH (08:31)
[2016-12-08] MEDS: predniSONE 10 MG TABLET PO SCH (08:31)
[2016-12-08] MEDS: MINERAL OIL/PETROL OINT 396 GM JAR TP SCH ×2 (08:32→21:20)
[2016-12-08] MEDS: HYDROGEN PEROXIDE 480 ML BOTTLE TP SCH ×2 (08:32→21:20)
[2016-12-08] MEDS: HEPARIN SODIUM, PORCINE 5000 UNITS/1 ML VIAL SQ SCH ×2 (08:32→21:16)
[2016-12-08] MEDS: ZINC OXIDE 56.7 GM TUBE TP SCH ×2 (08:32→21:20)
[2016-12-08] MEDS: GUAIFENESIN/D-METHORPHAN HB 5 ML UDC PO PRN ×2 (08:46→21:22)
[2016-12-08] MEDS: PROSOURCE / PROSTAT (PYXIS) 30 ML UDC PO SCH ×3 (09:00→17:57)
[2016-12-08] MEDS: BUDESONIDE RESPULE INH 0.5 MG/2 ML AMPUL.NEB IH SCH ×2 (09:30→21:29)
[2016-12-08 19:44] VITALS: BP 154/83
[2016-12-08] MEDS: DOCUSATE SODIUM 100 MG CAPSULE PO SCH (21:15)
[2016-12-08] MEDS: ASCORBIC ACID 500 MG TABLET PO SCH (21:16)
[2016-12-08] MEDS: TEMAZEPAM 15 MG CAPSULE PO SCH (21:21)
[2016-12-08] MEDS: GABAPENTIN 100 MG CAPSULE PO SCH (21:21)
[2016-12-08] MEDS: MONTELUKAST SODIUM (10MG) 10 MG TABLET PO SCH (21:21)
[2016-12-08] MEDS: [UNRECOGNIZED DRUG - OTHER] TP SCH (21:22)
[2016-12-08] MEDS: ATARAX 25 MG PO PRN (21:22)
[2016-12-09] MEDS: ALBUTEROL FS 2.5 MG/3 ML VIAL.NEB NEB SCH ×4 (01:36→19:17)
[2016-12-09] MEDS: IPRATROPIUM NEB FS 0.5 MG/2.5 ML AMPUL.NEB IH SCH ×4 (01:36→19:17)
[2016-12-09] MEDS: GLYCOPYRROLATE 1 MG TABLET GT SCH ×4 (03:30→21:30)
[2016-12-09] MEDS: PANTOPRAZOLE 40 MG TABLET.DR PO SCH (05:40)
[2016-12-09] MEDS: BLOOD SUGAR DIAGNOSTIC 1 EACH STRIP VI SCH ×3 (07:30→17:34)
[2016-12-09 07:40] VITALS: BP 141/94
[2016-12-09] MEDS: BUDESONIDE RESPULE INH 0.5 MG/2 ML AMPUL.NEB IH SCH ×2 (08:17→21:00)
[2016-12-09] MEDS: INSULIN LISPRO/ASPART 100 UNIT/ML CARTRIDGE SQ PRN ×3 (08:46→17:36)
[2016-12-09] MEDS: ZINC OXIDE 56.7 GM TUBE TP SCH ×2 (09:00→20:23)
[2016-12-09] MEDS: POLYVINYL ALCOHOL 15 ML BOTTLE EACHEYE SCH ×4 (09:00→20:21)
[2016-12-09] MEDS: PROSOURCE / PROSTAT (PYXIS) 30 ML UDC PO SCH ×3 (09:00→17:34)
[2016-12-09] MEDS: SERTRALINE HCL 25 MG TABLET PO SCH (09:00)
[2016-12-09] MEDS: SITAGLIPTIN PHOSPHATE 25 MG TABLET PO SCH (09:00)
[2016-12-09] MEDS: MINERAL OIL/PETROL OINT 396 GM JAR TP SCH ×2 (09:00→20:23)
[2016-12-09] MEDS: HYDROGEN PEROXIDE 480 ML BOTTLE TP SCH ×2 (09:00→20:23)
[2016-12-09] MEDS: VIT B CMPLX 3/FA/VIT C/BIOTIN 1 TAB TABLET PO SCH (09:00)
[2016-12-09] MEDS: predniSONE 10 MG TABLET PO SCH (09:00)
[2016-12-09] MEDS: HEPARIN SODIUM, PORCINE 5000 UNITS/1 ML VIAL SQ SCH ×2 (09:00→20:23)
--- NOTE | 2016-12-09 11:01 | NUR ---
Informed Natacha (group program manager) that since the merger of transportation [employer], efficient transportation to dialysis has been impacted. Informed him of concerns (ambulance showing up late, not bringing suction machine, not knowing if RT has to stay with the resident). He stated to email him concerns which the SW did. Asked for resolution of problems. SW will follow up. Informed charge nurse and subacute skilled nursing facilities professional.
[2016-12-09 20:02] VITALS: BP 158/95
[2016-12-09] MEDS: DOCUSATE SODIUM 100 MG CAPSULE PO SCH (20:21)
[2016-12-09] MEDS: ASCORBIC ACID 500 MG TABLET PO SCH (20:21)
[2016-12-09] MEDS: GABAPENTIN 100 MG CAPSULE PO SCH (22:31)
[2016-12-09] MEDS: MONTELUKAST SODIUM (10MG) 10 MG TABLET PO SCH (22:32)
[2016-12-09] MEDS: [UNRECOGNIZED DRUG - OTHER] TP SCH (22:32)
[2016-12-09] MEDS: TEMAZEPAM 15 MG CAPSULE PO SCH (22:32)
[2016-12-10] MEDS: IPRATROPIUM NEB FS 0.5 MG/2.5 ML AMPUL.NEB IH SCH ×4 (01:05→20:05)
[2016-12-10] MEDS: ALBUTEROL FS 2.5 MG/3 ML VIAL.NEB NEB SCH ×4 (01:05→20:05)
[2016-12-10] MEDS: GLYCOPYRROLATE 1 MG TABLET GT SCH ×4 (03:30→21:36)
[2016-12-10] MEDS: PANTOPRAZOLE 40 MG TABLET.DR PO SCH (05:24)
[2016-12-10] MEDS: BLOOD SUGAR DIAGNOSTIC 1 EACH STRIP VI SCH ×3 (06:33→18:04)
[2016-12-10] MEDS: INSULIN LISPRO/ASPART 100 UNIT/ML CARTRIDGE SQ PRN ×2 (06:36→18:06)
[2016-12-10 08:00] VITALS: BP 143/97
[2016-12-10] MEDS: POLYVINYL ALCOHOL 15 ML BOTTLE EACHEYE SCH ×4 (08:09→21:03)
[2016-12-10] MEDS: SITAGLIPTIN PHOSPHATE 25 MG TABLET PO SCH (08:09)
[2016-12-10] MEDS: VIT B CMPLX 3/FA/VIT C/BIOTIN 1 TAB TABLET PO SCH (08:09)
[2016-12-10] MEDS: PROSOURCE / PROSTAT (PYXIS) 30 ML UDC PO SCH ×3 (08:09→17:00)
[2016-12-10] MEDS: predniSONE 10 MG TABLET PO SCH (08:09)
[2016-12-10] MEDS: SERTRALINE HCL 25 MG TABLET PO SCH (08:09)
[2016-12-10] MEDS: HEPARIN SODIUM, PORCINE 5000 UNITS/1 ML VIAL SQ SCH ×2 (08:12→21:04)
[2016-12-10] MEDS: MINERAL OIL/PETROL OINT 396 GM JAR TP SCH ×2 (08:13→21:04)
[2016-12-10] MEDS: GUAIFENESIN/D-METHORPHAN HB 5 ML UDC PO PRN ×2 (08:16→21:06)
[2016-12-10] MEDS: BUDESONIDE RESPULE INH 0.5 MG/2 ML AMPUL.NEB IH SCH ×2 (08:31→20:08)
[2016-12-10] MEDS: HYDROGEN PEROXIDE 480 ML BOTTLE TP SCH ×2 (09:00→21:04)
[2016-12-10] MEDS: ZINC OXIDE 56.7 GM TUBE TP SCH ×2 (09:00→21:04)
--- NOTE | 2016-12-10 10:02 | NUR ---
Called manager hospice Cheikh Connelly ([phone]). He passed the phone to the dispatcher Malcolm. FERNANDO explained concerns (late cotton picking machine operator times, crew not prepared, crew talking to each other, crew making comments about payment for parking, and resident feeling like they are not paying attention to him or suctioning him when it is needed). He noted the concerns and changed the resident's pickup time to 8:20AM. Charge nurse informed.
--- NOTE | 2016-12-10 14:40 | NUR ---
RT PT IS AWAKE AND ALERT, MONHTLY TRACH CHANGE DONE WITH NEW SHILEY 6 XLT CUFFED. TRACH CHANGE DONE WITH NO COMPLICATIONS. NO BLEEDING OR REDNESS AT TRACH SITE. EQUAL BILATERAL BREATHTE SOUNDS AND CHEST RISE. NO RESPIRATORY DISTRESS NOTED AT THIS TIME, WILL CONTINUE TO MONITOR FOR ANY CHANGE OF CONDITION. Addendum: 12/10/16 at 1535 by NIECY CAMP RT Amended: Links added.
[2016-12-10] MEDS: DOCUSATE SODIUM 100 MG CAPSULE PO SCH (21:03)
[2016-12-10] MEDS: ASCORBIC ACID 500 MG TABLET PO SCH (21:04)
[2016-12-10] MEDS: ATARAX 25 MG PO PRN (21:06)
[2016-12-10] MEDS: MONTELUKAST SODIUM (10MG) 10 MG TABLET PO SCH (21:36)
[2016-12-10] MEDS: TEMAZEPAM 15 MG CAPSULE PO SCH (21:36)
[2016-12-10] MEDS: [UNRECOGNIZED DRUG - OTHER] TP SCH (21:36)
[2016-12-10] MEDS: GABAPENTIN 100 MG CAPSULE PO SCH (21:36)
[2016-12-11] MEDS: ALBUTEROL FS 2.5 MG/3 ML VIAL.NEB NEB SCH ×4 (01:44→19:52)
[2016-12-11] MEDS: IPRATROPIUM NEB FS 0.5 MG/2.5 ML AMPUL.NEB IH SCH ×4 (01:44→19:52)
[2016-12-11] MEDS: GLYCOPYRROLATE 1 MG TABLET GT SCH ×4 (03:30→21:34)
--- NOTE | 2016-12-11 03:49 | NUR ---
Patient is alert, oriented x4. Respiration even and unlabored. No SOB or desaturation noted. Complaint of left upper toothache with numbness of gums. Pain medication given. Swollen of left cheeks noted. Able to relief pain with pain medication. All needs attended. Will endorse to next shift RN
[2016-12-11] MEDS: PANTOPRAZOLE 40 MG TABLET.DR PO SCH (06:04)
[2016-12-11] MEDS: BLOOD SUGAR DIAGNOSTIC 1 EACH STRIP VI SCH ×3 (06:04→17:53)
[2016-12-11 07:45] VITALS: BP 119/95
--- NOTE | 2016-12-11 07:50 | NUR ---
During rounds, resident in bed with his breakfast tray in front of him. When asked how he is doing, he pointed to his L cheeks which is swollen and said it is hurting. Asked whether his tooth hurts too. He said, "yes". Notified SSD if she can arrange for dentist to see patient. Informed GINNER to medicate patient for pain.
[2016-12-11] MEDS: GUAIFENESIN/D-METHORPHAN HB 5 ML UDC PO PRN ×2 (08:00→20:57)
[2016-12-11] MEDS: NAPROXEN 500 MG TABLET PO PRN ×2 (08:00→20:57)
--- NOTE | 2016-12-11 08:00 | NUR ---
Informed by charge nurse that resident complaining of a tooth ache and left cheek is swollen. Called the office of Dr. Cj CARPENTER ([address] [place] [address]- [phone]) and spoke to Shar. She stated that Dr. Dougherty and Dr. Corona are both on vacation and will be back in two weeks. She stated there is not a covering dentist. Called the office of Dr. Kvng CARPENTER ([address] [place] [address]- ) and spoke with Carmela. She stated that Dr. Calderon is out of the office today but FERNANDO can send over the resident's information and can be seen tomorrow afternoon. FERNANDO faxed referral to fax #: [phone]. Informed charge nurse and subacute fleet maintenance manager Gwendolyn who stated licensed staff can accompany the resident to his appt. FERNANDO will follow up. Charge nurse to obtain order for appt.
[2016-12-11] MEDS: SERTRALINE HCL 25 MG TABLET PO SCH (08:04)
[2016-12-11] MEDS: PROSOURCE / PROSTAT (PYXIS) 30 ML UDC PO SCH ×3 (08:04→17:53)
[2016-12-11] MEDS: POLYVINYL ALCOHOL 15 ML BOTTLE EACHEYE SCH ×4 (08:04→21:33)
[2016-12-11] MEDS: VIT B CMPLX 3/FA/VIT C/BIOTIN 1 TAB TABLET PO SCH (08:04)
[2016-12-11] MEDS: SITAGLIPTIN PHOSPHATE 25 MG TABLET PO SCH (08:04)
[2016-12-11] MEDS: MINERAL OIL/PETROL OINT 396 GM JAR TP SCH ×2 (08:04→21:34)
[2016-12-11] MEDS: HYDROGEN PEROXIDE 480 ML BOTTLE TP SCH ×2 (08:04→21:34)
[2016-12-11] MEDS: predniSONE 10 MG TABLET PO SCH (08:04)
[2016-12-11] MEDS: HEPARIN SODIUM, PORCINE 5000 UNITS/1 ML VIAL SQ SCH ×2 (08:04→21:34)
[2016-12-11] MEDS: ZINC OXIDE 56.7 GM TUBE TP SCH ×2 (08:05→21:34)
[2016-12-11] MEDS: BUDESONIDE RESPULE INH 0.5 MG/2 ML AMPUL.NEB IH SCH ×2 (08:38→20:27)
--- NOTE | 2016-12-11 09:15 | NUR ---
Reported to Dr. Gardner that resident complaining of tooth ache and SSD is arranging for dental appointment. Dr. Gardner said it is OK and he can go OOP to see the dentist. SSD made aware.
--- NOTE | 2016-12-11 10:15 | NUR ---
SW spoke to the resident and informed him that she was trying to get a hold of his brother. Charge nurse was present during the conversation. Resident became agitated about dental costs. Charge nurse re-assessed to see if the resident was feeling any pain in the surrounding area and he stated no. She informed SW that resident had received pain medication earlier. He stated that his tooth was not hurting and it was more of just his cheek. Staff will monitor for any changes and will update director social.
--- NOTE | 2016-12-11 10:57 | NUR ---
Received incoming call from the resident's brother Aly Aaron ([phone]). Informed him that resident is complaining of his cheek hurting but stated that earlier he stated his tooth was hurting. Informed him that if resident needs to go to the dentist, payment will need to be upfront. He stated resident is receiving his SSI checks and he remains the payee. SW informed him that charge nurse re-assessed patient and he stated his tooth was not hurting. tea plantation worker to inform him if the resident needs to see the dentist.
[2016-12-11] MEDS: INSULIN LISPRO/ASPART 100 UNIT/ML CARTRIDGE SQ PRN ×2 (12:16→18:10)
[2016-12-11] MEDS: BISACODYL SUPP (10 MG) 10 MG/SUPP.RECT SUPP.RECT RC PRN (12:17)
--- NOTE | 2016-12-11 13:55 | NUR ---
reassessment done for toothache.pt verbalize no pain; no need to see a dentist.
[2016-12-11 19:51] VITALS: BP 150/98
[2016-12-11] MEDS: ASCORBIC ACID 500 MG TABLET PO SCH (21:33)
[2016-12-11] MEDS: DOCUSATE SODIUM 100 MG CAPSULE PO SCH (21:33)
[2016-12-11] MEDS: MONTELUKAST SODIUM (10MG) 10 MG TABLET PO SCH (21:34)
[2016-12-11] MEDS: GABAPENTIN 100 MG CAPSULE PO SCH (21:34)
[2016-12-11] MEDS: TEMAZEPAM 15 MG CAPSULE PO SCH (21:34)
[2016-12-11] MEDS: [UNRECOGNIZED DRUG - OTHER] TP SCH (21:35)
[2016-12-12] MEDS: IPRATROPIUM NEB FS 0.5 MG/2.5 ML AMPUL.NEB IH SCH ×4 (01:04→20:19)
[2016-12-12] MEDS: ALBUTEROL FS 2.5 MG/3 ML VIAL.NEB NEB SCH ×4 (01:04→20:19)
[2016-12-12] MEDS: GLYCOPYRROLATE 1 MG TABLET GT SCH ×4 (03:30→21:03)
[2016-12-12] MEDS: PANTOPRAZOLE 40 MG TABLET.DR PO SCH (06:24)
[2016-12-12] MEDS: BLOOD SUGAR DIAGNOSTIC 1 EACH STRIP VI SCH ×3 (06:56→17:54)
[2016-12-12] MEDS: INSULIN LISPRO/ASPART 100 UNIT/ML CARTRIDGE SQ PRN ×2 (06:57→17:18)
[2016-12-12] MEDS: BUDESONIDE RESPULE INH 0.5 MG/2 ML AMPUL.NEB IH SCH ×2 (08:33→20:34)
[2016-12-12] MEDS: SITAGLIPTIN PHOSPHATE 25 MG TABLET PO SCH (08:34)
[2016-12-12] MEDS: VIT B CMPLX 3/FA/VIT C/BIOTIN 1 TAB TABLET PO SCH (08:34)
[2016-12-12] MEDS: POLYVINYL ALCOHOL 15 ML BOTTLE EACHEYE SCH ×4 (08:34→21:03)
[2016-12-12] MEDS: HEPARIN SODIUM, PORCINE 5000 UNITS/1 ML VIAL SQ SCH ×2 (08:35→21:04)
[2016-12-12] MEDS: HYDROGEN PEROXIDE 480 ML BOTTLE TP SCH ×2 (08:35→21:04)
[2016-12-12] MEDS: MINERAL OIL/PETROL OINT 396 GM JAR TP SCH ×2 (08:35→21:04)
[2016-12-12] MEDS: predniSONE 10 MG TABLET PO SCH (08:35)
[2016-12-12] MEDS: SERTRALINE HCL 25 MG TABLET PO SCH (08:35)
[2016-12-12] MEDS: PROSOURCE / PROSTAT (PYXIS) 30 ML UDC PO SCH ×3 (08:35→17:18)
[2016-12-12] MEDS: ZINC OXIDE 56.7 GM TUBE TP SCH ×2 (08:35→21:04)
[2016-12-12] MEDS: GUAIFENESIN/D-METHORPHAN HB 5 ML UDC PO PRN ×2 (14:13→21:32)
--- NOTE | 2016-12-12 19:34 | NUR ---
Pt sometimes refuses Robinul. ARNOL Petty ordered to give Robinul q 12 instead of q 6 hours.
[2016-12-12 20:08] VITALS: BP 139/87
[2016-12-12] MEDS: GABAPENTIN 100 MG CAPSULE PO SCH (21:04)
[2016-12-12] MEDS: TEMAZEPAM 15 MG CAPSULE PO SCH (21:04)
[2016-12-12] MEDS: ASCORBIC ACID 500 MG TABLET PO SCH (21:04)
[2016-12-12] MEDS: DOCUSATE SODIUM 100 MG CAPSULE PO SCH (21:04)
[2016-12-12] MEDS: MONTELUKAST SODIUM (10MG) 10 MG TABLET PO SCH (21:04)
[2016-12-12] MEDS: [UNRECOGNIZED DRUG - OTHER] TP SCH (21:05)
[2016-12-12] MEDS: NAPROXEN 500 MG TABLET PO PRN (21:32)
[2016-12-13] MEDS: ALBUTEROL FS 2.5 MG/3 ML VIAL.NEB NEB SCH ×4 (02:27→20:07)
[2016-12-13] MEDS: IPRATROPIUM NEB FS 0.5 MG/2.5 ML AMPUL.NEB IH SCH ×4 (02:27→20:07)
[2016-12-13] MEDS: PANTOPRAZOLE 40 MG TABLET.DR PO SCH (06:24)
[2016-12-13] MEDS: BLOOD SUGAR DIAGNOSTIC 1 EACH STRIP VI SCH ×3 (06:51→17:51)
[2016-12-13] MEDS: INSULIN LISPRO/ASPART 100 UNIT/ML CARTRIDGE SQ PRN ×3 (06:51→17:53)
[2016-12-13 08:06] VITALS: BP 160/94
[2016-12-13] MEDS: BUDESONIDE RESPULE INH 0.5 MG/2 ML AMPUL.NEB IH SCH ×2 (08:27→20:35)
[2016-12-13] MEDS: SITAGLIPTIN PHOSPHATE 25 MG TABLET PO SCH (08:53)
[2016-12-13] MEDS: SERTRALINE HCL 25 MG TABLET PO SCH (08:53)
[2016-12-13] MEDS: GLYCOPYRROLATE 1 MG TABLET GT SCH ×2 (08:53→20:51)
[2016-12-13] MEDS: VIT B CMPLX 3/FA/VIT C/BIOTIN 1 TAB TABLET PO SCH (08:53)
[2016-12-13] MEDS: predniSONE 10 MG TABLET PO SCH (08:53)
[2016-12-13] MEDS: PROSOURCE / PROSTAT (PYXIS) 30 ML UDC PO SCH ×3 (08:53→17:30)
[2016-12-13] MEDS: POLYVINYL ALCOHOL 15 ML BOTTLE EACHEYE SCH ×4 (08:53→20:51)
[2016-12-13] MEDS: MINERAL OIL/PETROL OINT 396 GM JAR TP SCH ×2 (08:54→20:52)
[2016-12-13] MEDS: HEPARIN SODIUM, PORCINE 5000 UNITS/1 ML VIAL SQ SCH ×2 (08:54→21:00)
[2016-12-13] MEDS: ZINC OXIDE 56.7 GM TUBE TP SCH ×2 (12:28→20:51)
[2016-12-13] MEDS: HYDROGEN PEROXIDE 480 ML BOTTLE TP SCH ×2 (12:28→20:51)
--- NOTE | 2016-12-13 18:46 | NUR ---
Seen and examined by Radha Petty NP, NNO given at this time.
[2016-12-13] MEDS: CLONIDINE HCL 0.1 MG TABLET PO PRN (19:41)
--- NOTE | 2016-12-13 19:41 | NUR ---
GIVEN CLONIDINE 0.1 MG, BP 145/112, WILL CONTINUE TO MONITOR
[2016-12-13] MEDS: GUAIFENESIN/D-METHORPHAN HB 5 ML UDC PO PRN (20:45)
[2016-12-13] MEDS: DOCUSATE SODIUM 100 MG CAPSULE PO SCH (20:51)
[2016-12-13] MEDS: ASCORBIC ACID 500 MG TABLET PO SCH (20:51)
--- NOTE | 2016-12-13 21:30 | NUR ---
AFTER GIVING CLONIDINE, BP 138/98 HR 87
[2016-12-13] MEDS: MONTELUKAST SODIUM (10MG) 10 MG TABLET PO SCH (22:44)
[2016-12-13] MEDS: TEMAZEPAM 15 MG CAPSULE PO SCH (22:44)
[2016-12-13] MEDS: GABAPENTIN 100 MG CAPSULE PO SCH (22:44)
[2016-12-13] MEDS: [UNRECOGNIZED DRUG - OTHER] TP SCH (22:45)
[2016-12-14 00:08] VITALS: BP 132/106
[2016-12-14] MEDS: ALBUTEROL FS 2.5 MG/3 ML VIAL.NEB NEB SCH ×4 (01:07→20:51)
[2016-12-14] MEDS: IPRATROPIUM NEB FS 0.5 MG/2.5 ML AMPUL.NEB IH SCH ×4 (01:07→20:51)
[2016-12-14] MEDS: PANTOPRAZOLE 40 MG TABLET.DR PO SCH (06:00)
[2016-12-14] MEDS: BLOOD SUGAR DIAGNOSTIC 1 EACH STRIP VI SCH ×3 (06:25→16:30)
[2016-12-14] MEDS: INSULIN LISPRO/ASPART 100 UNIT/ML CARTRIDGE SQ PRN ×2 (06:31→16:32)
--- NOTE | 2016-12-14 06:34 | NUR ---
BG 100 MG/DL, NO INSULIN GIVEN
[2016-12-14 07:52] VITALS: BP 140/83
[2016-12-14] MEDS: BUDESONIDE RESPULE INH 0.5 MG/2 ML AMPUL.NEB IH SCH (08:20)
[2016-12-14] MEDS: VIT B CMPLX 3/FA/VIT C/BIOTIN 1 TAB TABLET PO SCH (08:33)
[2016-12-14] MEDS: GLYCOPYRROLATE 1 MG TABLET GT SCH ×2 (08:33→21:11)
[2016-12-14] MEDS: SERTRALINE HCL 25 MG TABLET PO SCH (08:33)
[2016-12-14] MEDS: predniSONE 10 MG TABLET PO SCH (08:33)
[2016-12-14] MEDS: SITAGLIPTIN PHOSPHATE 25 MG TABLET PO SCH (08:33)
[2016-12-14] MEDS: POLYVINYL ALCOHOL 15 ML BOTTLE EACHEYE SCH ×4 (08:33→21:11)
[2016-12-14] MEDS: PROSOURCE / PROSTAT (PYXIS) 30 ML UDC PO SCH ×3 (08:34→16:28)
[2016-12-14] MEDS: HEPARIN SODIUM, PORCINE 5000 UNITS/1 ML VIAL SQ SCH ×2 (08:34→21:12)
[2016-12-14] MEDS: MINERAL OIL/PETROL OINT 396 GM JAR TP SCH ×2 (08:34→21:12)
[2016-12-14] MEDS: GUAIFENESIN/D-METHORPHAN HB 5 ML UDC PO PRN ×3 (08:35→21:13)
--- NOTE | 2016-12-14 13:02 | NUR ---
PATIENT OUT OF FACILITY HHN TX NOT GIVEN
[2016-12-14] MEDS: ZINC OXIDE 56.7 GM TUBE TP SCH ×2 (14:36→21:12)
[2016-12-14] MEDS: HYDROGEN PEROXIDE 480 ML BOTTLE TP SCH ×2 (14:36→21:12)
[2016-12-14] MEDS: BISACODYL SUPP (10 MG) 10 MG/SUPP.RECT SUPP.RECT RC PRN (14:51)
--- NOTE | 2016-12-14 15:00 | NUR ---
Resident return back from dialysis stable condition accompanied by ambulance staff and RT. Perma cath in the R upper chest with dressing intact, no bleeding. Made resident comfortable in bed, watches TV and call light within his easy reach.
[2016-12-14] MEDS: MAG HYDROX/AL HYDROX/SIMETH 30 ML UDC PO PRN (16:30)
[2016-12-14 19:48] VITALS: BP 139/89
[2016-12-14] MEDS: ASCORBIC ACID 500 MG TABLET PO SCH (21:11)
[2016-12-14] MEDS: DOCUSATE SODIUM 100 MG CAPSULE PO SCH (21:11)
[2016-12-14] MEDS: MONTELUKAST SODIUM (10MG) 10 MG TABLET PO SCH (21:12)
[2016-12-14] MEDS: TEMAZEPAM 15 MG CAPSULE PO SCH (21:12)
[2016-12-14] MEDS: GABAPENTIN 100 MG CAPSULE PO SCH (21:12)
[2016-12-14] MEDS: [UNRECOGNIZED DRUG - OTHER] TP SCH (21:12)
[2016-12-14] MEDS: NAPROXEN 500 MG TABLET PO PRN (21:13)
[2016-12-14] MEDS: ATARAX 25 MG PO PRN (22:04)
[2016-12-15] MEDS: IPRATROPIUM NEB FS 0.5 MG/2.5 ML AMPUL.NEB IH SCH ×4 (02:42→20:04)
[2016-12-15] MEDS: ALBUTEROL FS 2.5 MG/3 ML VIAL.NEB NEB SCH ×4 (02:42→20:04)
[2016-12-15] MEDS: PANTOPRAZOLE 40 MG TABLET.DR PO SCH (05:38)
[2016-12-15] MEDS: BLOOD SUGAR DIAGNOSTIC 1 EACH STRIP VI SCH ×3 (07:14→17:30)
[2016-12-15] MEDS: INSULIN LISPRO/ASPART 100 UNIT/ML CARTRIDGE SQ PRN ×3 (07:15→18:53)
[2016-12-15] MEDS: GLYCOPYRROLATE 1 MG TABLET GT SCH ×2 (08:48→21:03)
[2016-12-15] MEDS: POLYVINYL ALCOHOL 15 ML BOTTLE EACHEYE SCH ×4 (08:48→21:02)
[2016-12-15] MEDS: SITAGLIPTIN PHOSPHATE 25 MG TABLET PO SCH (08:48)
[2016-12-15] MEDS: VIT B CMPLX 3/FA/VIT C/BIOTIN 1 TAB TABLET PO SCH (08:48)
[2016-12-15] MEDS: predniSONE 10 MG TABLET PO SCH (08:48)
[2016-12-15] MEDS: HEPARIN SODIUM, PORCINE 5000 UNITS/1 ML VIAL SQ SCH ×2 (08:49→21:05)
[2016-12-15] MEDS: SERTRALINE HCL 25 MG TABLET PO SCH (08:49)
[2016-12-15] MEDS: MINERAL OIL/PETROL OINT 396 GM JAR TP SCH ×2 (08:49→21:05)
[2016-12-15] MEDS: PROSOURCE / PROSTAT (PYXIS) 30 ML UDC PO SCH ×3 (08:49→17:00)
[2016-12-15] MEDS: HYDROGEN PEROXIDE 480 ML BOTTLE TP SCH ×2 (08:49→21:05)
[2016-12-15] MEDS: ZINC OXIDE 56.7 GM TUBE TP SCH ×2 (08:50→21:05)
[2016-12-15] MEDS: GUAIFENESIN/D-METHORPHAN HB 5 ML UDC PO PRN ×2 (09:15→21:06)
[2016-12-15] MEDS: ALBUTEROL FS 2.5 MG/3 ML VIAL.NEB NEB PRN (15:52)
[2016-12-15] MEDS: IPRATROPIUM NEB FS 0.5 MG/2.5 ML AMPUL.NEB NEB PRN (15:52)
[2016-12-15 19:46] VITALS: BP_SYST 116; BP_SYST 155; BP_DIAS 63; BP_DIAS 94
[2016-12-15] MEDS: BUDESONIDE RESPULE INH 0.5 MG/2 ML AMPUL.NEB IH SCH (20:35)
[2016-12-15] MEDS: DOCUSATE SODIUM 100 MG CAPSULE PO SCH (21:03)
[2016-12-15] MEDS: ASCORBIC ACID 500 MG TABLET PO SCH (21:04)
[2016-12-15] MEDS: ATARAX 25 MG PO PRN (21:06)
[2016-12-15] MEDS: TEMAZEPAM 15 MG CAPSULE PO SCH (21:31)
[2016-12-15] MEDS: GABAPENTIN 100 MG CAPSULE PO SCH (21:31)
[2016-12-15] MEDS: MONTELUKAST SODIUM (10MG) 10 MG TABLET PO SCH (21:32)
[2016-12-15] MEDS: [UNRECOGNIZED DRUG - OTHER] TP SCH (21:32)
[2016-12-16] MEDS: IPRATROPIUM NEB FS 0.5 MG/2.5 ML AMPUL.NEB IH SCH ×4 (01:31→20:02)
[2016-12-16] MEDS: ALBUTEROL FS 2.5 MG/3 ML VIAL.NEB NEB SCH ×4 (01:31→20:02)
[2016-12-16] MEDS: PANTOPRAZOLE 40 MG TABLET.DR PO SCH (06:08)
[2016-12-16 08:01] VITALS: BP 144/93
[2016-12-16] MEDS: BLOOD SUGAR DIAGNOSTIC 1 EACH STRIP VI SCH ×3 (08:01→17:30)
[2016-12-16] MEDS: INSULIN LISPRO/ASPART 100 UNIT/ML CARTRIDGE SQ PRN ×3 (08:02→18:41)
[2016-12-16] MEDS: POLYVINYL ALCOHOL 15 ML BOTTLE EACHEYE SCH ×4 (08:28→20:58)
[2016-12-16] MEDS: SITAGLIPTIN PHOSPHATE 25 MG TABLET PO SCH (08:29)
[2016-12-16] MEDS: SERTRALINE HCL 25 MG TABLET PO SCH (08:29)
[2016-12-16] MEDS: PROSOURCE / PROSTAT (PYXIS) 30 ML UDC PO SCH ×3 (08:29→17:00)
[2016-12-16] MEDS: predniSONE 10 MG TABLET PO SCH (08:29)
[2016-12-16] MEDS: VIT B CMPLX 3/FA/VIT C/BIOTIN 1 TAB TABLET PO SCH (08:29)
[2016-12-16] MEDS: GLYCOPYRROLATE 1 MG TABLET GT SCH ×2 (08:29→21:01)
[2016-12-16] MEDS: MINERAL OIL/PETROL OINT 396 GM JAR TP SCH ×2 (08:33→21:01)
[2016-12-16] MEDS: HEPARIN SODIUM, PORCINE 5000 UNITS/1 ML VIAL SQ SCH ×2 (08:33→21:01)
[2016-12-16] MEDS: HYDROGEN PEROXIDE 480 ML BOTTLE TP SCH ×2 (08:34→21:02)
[2016-12-16] MEDS: ZINC OXIDE 56.7 GM TUBE TP SCH ×2 (08:34→21:02)
[2016-12-16] MEDS: BUDESONIDE RESPULE INH 0.5 MG/2 ML AMPUL.NEB IH SCH ×2 (08:46→20:02)
[2016-12-16] MEDS: GUAIFENESIN/D-METHORPHAN HB 5 ML UDC PO PRN ×2 (08:52→21:00)
[2016-12-16 19:52] VITALS: BP 144/93
[2016-12-16] MEDS: DOCUSATE SODIUM 100 MG CAPSULE PO SCH (20:59)
[2016-12-16] MEDS: ATARAX 25 MG PO PRN (21:00)
[2016-12-16] MEDS: ASCORBIC ACID 500 MG TABLET PO SCH (21:01)
[2016-12-16] MEDS: MONTELUKAST SODIUM (10MG) 10 MG TABLET PO SCH (21:27)
[2016-12-16] MEDS: [UNRECOGNIZED DRUG - OTHER] TP SCH (21:27)
[2016-12-16] MEDS: GABAPENTIN 100 MG CAPSULE PO SCH (21:27)
[2016-12-16] MEDS: TEMAZEPAM 15 MG CAPSULE PO SCH (21:27)
[2016-12-17] MEDS: ALBUTEROL FS 2.5 MG/3 ML VIAL.NEB NEB SCH ×4 (01:39→19:38)
[2016-12-17] MEDS: IPRATROPIUM NEB FS 0.5 MG/2.5 ML AMPUL.NEB IH SCH ×4 (01:39→19:38)
[2016-12-17] MEDS: PANTOPRAZOLE 40 MG TABLET.DR PO SCH (05:57)
[2016-12-17] MEDS: BLOOD SUGAR DIAGNOSTIC 1 EACH STRIP VI SCH ×3 (06:32→18:13)
[2016-12-17 07:54] VITALS: BP 145/90
[2016-12-17] MEDS: BUDESONIDE RESPULE INH 0.5 MG/2 ML AMPUL.NEB IH SCH ×2 (08:00→21:06)
[2016-12-17] MEDS: GLYCOPYRROLATE 1 MG TABLET GT SCH ×2 (08:16→21:05)
[2016-12-17] MEDS: POLYVINYL ALCOHOL 15 ML BOTTLE EACHEYE SCH ×4 (08:16→20:58)
[2016-12-17] MEDS: SITAGLIPTIN PHOSPHATE 25 MG TABLET PO SCH (08:16)
[2016-12-17] MEDS: VIT B CMPLX 3/FA/VIT C/BIOTIN 1 TAB TABLET PO SCH (08:17)
[2016-12-17] MEDS: predniSONE 10 MG TABLET PO SCH (08:18)
[2016-12-17] MEDS: PROSOURCE / PROSTAT (PYXIS) 30 ML UDC PO SCH ×3 (08:18→17:00)
[2016-12-17] MEDS: SERTRALINE HCL 25 MG TABLET PO SCH (08:18)
[2016-12-17] MEDS: MINERAL OIL/PETROL OINT 396 GM JAR TP SCH ×2 (08:21→21:06)
[2016-12-17] MEDS: HEPARIN SODIUM, PORCINE 5000 UNITS/1 ML VIAL SQ SCH ×2 (08:21→21:06)
[2016-12-17] MEDS: HYDROGEN PEROXIDE 480 ML BOTTLE TP SCH ×2 (08:21→21:06)
[2016-12-17] MEDS: ZINC OXIDE 56.7 GM TUBE TP SCH ×2 (08:21→21:06)
--- NOTE | 2016-12-17 09:31 | NUR ---
SW informed that resident does not want to go with ambulance staff. Ambulance staff arrived late, does not have an RT or a suction machine. Spoke with resident and after discussion, he agreed to go with the ambulance. Charge nurse and SW notified ambulance staff about picker packer time and RT/suction machine issue however, there is nothing they can do. Called Malcolm from ambulance [employer] ([phone]) and shared above concerns. He stated he would talk to his dining room supervisor and took down Sw's call back information. Malcolm stated dining room supervisor will give her a call. Resident also raised concern about REMELT PAN TANK OPERATOR not cleaning him properly and charge nurse to follow up with REMELT PAN TANK OPERATOR about proper cleaning.
--- NOTE | 2016-12-17 13:07 | NUR ---
pt off unit
[2016-12-17] MEDS: INSULIN LISPRO/ASPART 100 UNIT/ML CARTRIDGE SQ PRN (18:14)
[2016-12-17 19:56] VITALS: BP 146/97
[2016-12-17] MEDS: DOCUSATE SODIUM 100 MG CAPSULE PO SCH (21:05)
[2016-12-17] MEDS: ASCORBIC ACID 500 MG TABLET PO SCH (21:05)
[2016-12-17] MEDS: MONTELUKAST SODIUM (10MG) 10 MG TABLET PO SCH (22:10)
[2016-12-17] MEDS: GABAPENTIN 100 MG CAPSULE PO SCH (22:10)
[2016-12-17] MEDS: TEMAZEPAM 15 MG CAPSULE PO SCH (22:10)
[2016-12-17] MEDS: [UNRECOGNIZED DRUG - OTHER] TP SCH (22:11)
[2016-12-18] MEDS: IPRATROPIUM NEB FS 0.5 MG/2.5 ML AMPUL.NEB IH SCH ×4 (01:18→19:56)
[2016-12-18] MEDS: ALBUTEROL FS 2.5 MG/3 ML VIAL.NEB NEB SCH ×4 (01:18→19:56)
[2016-12-18] MEDS: PANTOPRAZOLE 40 MG TABLET.DR PO SCH (06:18)
[2016-12-18] MEDS: BLOOD SUGAR DIAGNOSTIC 1 EACH STRIP VI SCH ×3 (07:30→17:35)
[2016-12-18 07:52] VITALS: BP 133/84
[2016-12-18] MEDS: BUDESONIDE RESPULE INH 0.5 MG/2 ML AMPUL.NEB IH SCH ×2 (08:31→19:56)
[2016-12-18] MEDS: POLYVINYL ALCOHOL 15 ML BOTTLE EACHEYE SCH ×4 (08:54→21:58)
[2016-12-18] MEDS: predniSONE 10 MG TABLET PO SCH (08:54)
[2016-12-18] MEDS: SITAGLIPTIN PHOSPHATE 25 MG TABLET PO SCH (08:54)
[2016-12-18] MEDS: GLYCOPYRROLATE 1 MG TABLET GT SCH ×2 (08:54→21:58)
[2016-12-18] MEDS: VIT B CMPLX 3/FA/VIT C/BIOTIN 1 TAB TABLET PO SCH (08:54)
[2016-12-18] MEDS: SERTRALINE HCL 25 MG TABLET PO SCH (08:54)
[2016-12-18] MEDS: PROSOURCE / PROSTAT (PYXIS) 30 ML UDC PO SCH ×3 (08:54→17:35)
[2016-12-18] MEDS: HYDROGEN PEROXIDE 480 ML BOTTLE TP SCH ×2 (08:55→21:00)
[2016-12-18] MEDS: MINERAL OIL/PETROL OINT 396 GM JAR TP SCH ×2 (08:55→21:00)
[2016-12-18] MEDS: HEPARIN SODIUM, PORCINE 5000 UNITS/1 ML VIAL SQ SCH ×2 (08:55→22:00)
[2016-12-18] MEDS: ZINC OXIDE 56.7 GM TUBE TP SCH ×2 (08:55→21:00)
[2016-12-18] MEDS: GUAIFENESIN/D-METHORPHAN HB 5 ML UDC PO PRN ×2 (08:57→22:03)
[2016-12-18] MEDS: NAPROXEN 500 MG TABLET PO PRN ×2 (08:57→22:03)
[2016-12-18] MEDS: INSULIN LISPRO/ASPART 100 UNIT/ML CARTRIDGE SQ PRN (17:36)
[2016-12-18 20:01] VITALS: BP 139/88
[2016-12-18] MEDS: DOCUSATE SODIUM 100 MG CAPSULE PO SCH (21:58)
[2016-12-18] MEDS: ASCORBIC ACID 500 MG TABLET PO SCH (21:59)
[2016-12-18] MEDS: GABAPENTIN 100 MG CAPSULE PO SCH (22:01)
[2016-12-18] MEDS: MONTELUKAST SODIUM (10MG) 10 MG TABLET PO SCH (22:02)
[2016-12-18] MEDS: TEMAZEPAM 15 MG CAPSULE PO SCH (22:02)
[2016-12-18] MEDS: [UNRECOGNIZED DRUG - OTHER] TP SCH (22:02)
[2016-12-19] MEDS: ATARAX 25 MG PO PRN (00:38)
[2016-12-19] MEDS: ALBUTEROL FS 2.5 MG/3 ML VIAL.NEB NEB SCH ×4 (01:30→19:55)
[2016-12-19] MEDS: IPRATROPIUM NEB FS 0.5 MG/2.5 ML AMPUL.NEB IH SCH ×4 (01:30→19:55)
[2016-12-19] MEDS: PANTOPRAZOLE 40 MG TABLET.DR PO SCH (05:45)
[2016-12-19] MEDS: BLOOD SUGAR DIAGNOSTIC 1 EACH STRIP VI SCH ×3 (06:53→18:03)
[2016-12-19] MEDS: INSULIN LISPRO/ASPART 100 UNIT/ML CARTRIDGE SQ PRN ×2 (06:54→18:06)
[2016-12-19 07:50] VITALS: BP 147/99
[2016-12-19] MEDS: PROSOURCE / PROSTAT (PYXIS) 30 ML UDC PO SCH ×3 (08:07→17:00)
[2016-12-19] MEDS: VIT B CMPLX 3/FA/VIT C/BIOTIN 1 TAB TABLET PO SCH (08:08)
[2016-12-19] MEDS: SERTRALINE HCL 25 MG TABLET PO SCH (08:08)
[2016-12-19] MEDS: SITAGLIPTIN PHOSPHATE 25 MG TABLET PO SCH (08:08)
[2016-12-19] MEDS: POLYVINYL ALCOHOL 15 ML BOTTLE EACHEYE SCH ×4 (08:08→21:59)
[2016-12-19] MEDS: predniSONE 10 MG TABLET PO SCH (08:08)
[2016-12-19] MEDS: GLYCOPYRROLATE 1 MG TABLET GT SCH ×2 (08:08→21:59)
[2016-12-19] MEDS: HEPARIN SODIUM, PORCINE 5000 UNITS/1 ML VIAL SQ SCH ×2 (08:09→21:59)
[2016-12-19] MEDS: ZINC OXIDE 56.7 GM TUBE TP SCH ×2 (08:09→22:00)
[2016-12-19] MEDS: HYDROGEN PEROXIDE 480 ML BOTTLE TP SCH ×2 (08:09→22:00)
[2016-12-19] MEDS: MINERAL OIL/PETROL OINT 396 GM JAR TP SCH ×2 (08:09→22:00)
[2016-12-19] MEDS: BUDESONIDE RESPULE INH 0.5 MG/2 ML AMPUL.NEB IH SCH ×2 (08:27→19:55)
[2016-12-19] MEDS: GUAIFENESIN/D-METHORPHAN HB 5 ML UDC PO PRN ×2 (08:30→22:01)
--- NOTE | 2016-12-19 14:37 | NUR ---
KANWAL informed by charge nurse that resident is not happy after returning from dialysis. He reported to the charge nurse that the RT staff member from the transportation company is constantly always on the phone and that this was also confirmed with staff from [facility]. Also, that staff member is unprofessional and inattentive to resident's needs (has to be told resident need's suctioning while he is on his phone). Kanwal called [facility] ([phone]) and requested to speak to Malcolm to discuss concerns. KANWAL was told that Malcolm was in a meeting and she asked if there are any concerns. KANWAL mentioned the above concerns that charge nurse has stated. She stated that she will let Malcolm Know and she took down the SW's contact information. Also stated to her that Malcolm never called me back from two days ago. She said she will give him the message. KANWAL attempted to go speak with the resident who was asleep at the time.
[2016-12-19 20:09] VITALS: BP 147/98
[2016-12-19] MEDS: ASCORBIC ACID 500 MG TABLET PO SCH (21:59)
[2016-12-19] MEDS: DOCUSATE SODIUM 100 MG CAPSULE PO SCH (21:59)
[2016-12-19] MEDS: [UNRECOGNIZED DRUG - OTHER] TP SCH (22:00)
[2016-12-19] MEDS: GABAPENTIN 100 MG CAPSULE PO SCH (22:00)
[2016-12-19] MEDS: TEMAZEPAM 15 MG CAPSULE PO SCH (22:00)
[2016-12-19] MEDS: MONTELUKAST SODIUM (10MG) 10 MG TABLET PO SCH (22:00)
[2016-12-20] MEDS: ALBUTEROL FS 2.5 MG/3 ML VIAL.NEB NEB SCH ×4 (00:49→19:42)
[2016-12-20] MEDS: IPRATROPIUM NEB FS 0.5 MG/2.5 ML AMPUL.NEB IH SCH ×4 (00:49→19:42)
[2016-12-20] MEDS: PANTOPRAZOLE 40 MG TABLET.DR PO SCH (05:44)
[2016-12-20] MEDS: BLOOD SUGAR DIAGNOSTIC 1 EACH STRIP VI SCH ×3 (06:59→17:01)
[2016-12-20] MEDS: INSULIN LISPRO/ASPART 100 UNIT/ML CARTRIDGE SQ PRN ×2 (07:00→17:02)
[2016-12-20 07:50] VITALS: BP 137/89
[2016-12-20] MEDS: BUDESONIDE RESPULE INH 0.5 MG/2 ML AMPUL.NEB IH SCH ×2 (08:01→19:43)
[2016-12-20] MEDS: VIT B CMPLX 3/FA/VIT C/BIOTIN 1 TAB TABLET PO SCH (09:00)
[2016-12-20] MEDS: GLYCOPYRROLATE 1 MG TABLET GT SCH ×2 (09:00→21:44)
[2016-12-20] MEDS: HEPARIN SODIUM, PORCINE 5000 UNITS/1 ML VIAL SQ SCH ×2 (09:00→21:44)
[2016-12-20] MEDS: SERTRALINE HCL 25 MG TABLET PO SCH (09:00)
[2016-12-20] MEDS: SITAGLIPTIN PHOSPHATE 25 MG TABLET PO SCH (09:00)
[2016-12-20] MEDS: ZINC OXIDE 56.7 GM TUBE TP SCH ×2 (09:00→21:44)
[2016-12-20] MEDS: POLYVINYL ALCOHOL 15 ML BOTTLE EACHEYE SCH ×4 (09:00→21:44)
[2016-12-20] MEDS: predniSONE 10 MG TABLET PO SCH (09:00)
[2016-12-20] MEDS: PROSOURCE / PROSTAT (PYXIS) 30 ML UDC PO SCH ×3 (09:00→17:01)
[2016-12-20] MEDS: HYDROGEN PEROXIDE 480 ML BOTTLE TP SCH ×2 (09:00→21:44)
[2016-12-20] MEDS: MINERAL OIL/PETROL OINT 396 GM JAR TP SCH ×2 (09:00→21:44)
--- NOTE | 2016-12-20 13:35 | NUR ---
IDT meeting held, reviewed current and new medications, treatments and labs. Family/patient unable to attend. Dr. Gardner ordered to d/c Baclofen PRN for muscle spasm due to non-usage.
[2016-12-20] MEDS: BISACODYL SUPP (10 MG) 10 MG/SUPP.RECT SUPP.RECT RC PRN (18:00)
[2016-12-20 20:05] VITALS: BP 143/84
[2016-12-20] MEDS: ASCORBIC ACID 500 MG TABLET PO SCH (21:44)
[2016-12-20] MEDS: DOCUSATE SODIUM 100 MG CAPSULE PO SCH (21:44)
[2016-12-20] MEDS: GABAPENTIN 100 MG CAPSULE PO SCH (21:44)
[2016-12-20] MEDS: TEMAZEPAM 15 MG CAPSULE PO SCH (21:45)
[2016-12-20] MEDS: [UNRECOGNIZED DRUG - OTHER] TP SCH (21:45)
[2016-12-20] MEDS: MONTELUKAST SODIUM (10MG) 10 MG TABLET PO SCH (21:45)
[2016-12-20] MEDS: NAPROXEN 500 MG TABLET PO PRN (23:00)
[2016-12-20] MEDS: GUAIFENESIN/D-METHORPHAN HB 5 ML UDC PO PRN (23:05)
[2016-12-21] MEDS: IPRATROPIUM NEB FS 0.5 MG/2.5 ML AMPUL.NEB IH SCH ×4 (00:42→19:44)
[2016-12-21] MEDS: ALBUTEROL FS 2.5 MG/3 ML VIAL.NEB NEB SCH ×4 (00:42→19:44)
[2016-12-21] MEDS: PANTOPRAZOLE 40 MG TABLET.DR PO SCH (05:45)
--- NOTE | 2016-12-21 06:18 | NUR ---
PRN Naproxen 500 mg given to pt d/t pain on left shoulder at 6/10 scale. Repositioned and massaged to comfort pt,, not effective. Naproxen effective after an hour, 1/10 pain scale. No other complain at this time. Kept comfortable.
[2016-12-21] MEDS: BLOOD SUGAR DIAGNOSTIC 1 EACH STRIP VI SCH ×3 (06:48→16:45)
[2016-12-21] MEDS: INSULIN LISPRO/ASPART 100 UNIT/ML CARTRIDGE SQ PRN ×2 (06:49→16:46)
[2016-12-21 07:40] VITALS: BP 144/92
[2016-12-21] MEDS: BUDESONIDE RESPULE INH 0.5 MG/2 ML AMPUL.NEB IH SCH ×2 (08:07→21:05)
[2016-12-21] MEDS: VIT B CMPLX 3/FA/VIT C/BIOTIN 1 TAB TABLET PO SCH (08:35)
[2016-12-21] MEDS: POLYVINYL ALCOHOL 15 ML BOTTLE EACHEYE SCH ×4 (08:35→20:52)
[2016-12-21] MEDS: SITAGLIPTIN PHOSPHATE 25 MG TABLET PO SCH (08:35)
[2016-12-21] MEDS: predniSONE 10 MG TABLET PO SCH (08:35)
[2016-12-21] MEDS: PROSOURCE / PROSTAT (PYXIS) 30 ML UDC PO SCH ×3 (08:35→16:45)
[2016-12-21] MEDS: GLYCOPYRROLATE 1 MG TABLET GT SCH ×2 (08:35→21:05)
[2016-12-21] MEDS: SERTRALINE HCL 25 MG TABLET PO SCH (08:35)
[2016-12-21] MEDS: ZINC OXIDE 56.7 GM TUBE TP SCH ×2 (08:36→21:04)
[2016-12-21] MEDS: HEPARIN SODIUM, PORCINE 5000 UNITS/1 ML VIAL SQ SCH ×2 (08:36→21:07)
[2016-12-21] MEDS: HYDROGEN PEROXIDE 480 ML BOTTLE TP SCH ×2 (08:36→21:04)
[2016-12-21] MEDS: MINERAL OIL/PETROL OINT 396 GM JAR TP SCH ×2 (08:36→21:04)
[2016-12-21 20:09] VITALS: BP 150/93
[2016-12-21] MEDS: TEMAZEPAM 15 MG CAPSULE PO SCH (21:03)
[2016-12-21] MEDS: GABAPENTIN 100 MG CAPSULE PO SCH (21:03)
[2016-12-21] MEDS: ASCORBIC ACID 500 MG TABLET PO SCH (21:04)
[2016-12-21] MEDS: DOCUSATE SODIUM 100 MG CAPSULE PO SCH (21:04)
[2016-12-21] MEDS: [UNRECOGNIZED DRUG - OTHER] TP SCH (21:06)
[2016-12-21] MEDS: MONTELUKAST SODIUM (10MG) 10 MG TABLET PO SCH (21:06)
[2016-12-21] MEDS: GUAIFENESIN/D-METHORPHAN HB 5 ML UDC PO PRN (21:16)
[2016-12-22] MEDS: IPRATROPIUM NEB FS 0.5 MG/2.5 ML AMPUL.NEB IH SCH ×4 (01:59→18:57)
[2016-12-22] MEDS: ALBUTEROL FS 2.5 MG/3 ML VIAL.NEB NEB SCH ×4 (01:59→18:57)
[2016-12-22] MEDS: PANTOPRAZOLE 40 MG TABLET.DR PO SCH (06:27)
[2016-12-22] MEDS: BLOOD SUGAR DIAGNOSTIC 1 EACH STRIP VI SCH ×3 (06:32→17:52)
[2016-12-22] MEDS: INSULIN LISPRO/ASPART 100 UNIT/ML CARTRIDGE SQ PRN ×2 (06:32→17:55)
[2016-12-22 07:52] VITALS: BP 144/88
[2016-12-22] MEDS: BUDESONIDE RESPULE INH 0.5 MG/2 ML AMPUL.NEB IH SCH ×2 (08:00→09:01)
[2016-12-22] MEDS: PROSOURCE / PROSTAT (PYXIS) 30 ML UDC PO SCH ×3 (09:00→17:52)
[2016-12-22] MEDS: POLYVINYL ALCOHOL 15 ML BOTTLE EACHEYE SCH ×4 (09:00→21:21)
[2016-12-22] MEDS: ZINC OXIDE 56.7 GM TUBE TP SCH ×2 (09:00→21:24)
[2016-12-22] MEDS: SITAGLIPTIN PHOSPHATE 25 MG TABLET PO SCH (09:00)
[2016-12-22] MEDS: predniSONE 10 MG TABLET PO SCH (09:00)
[2016-12-22] MEDS: GLYCOPYRROLATE 1 MG TABLET GT SCH ×2 (09:00→21:22)
[2016-12-22] MEDS: SERTRALINE HCL 25 MG TABLET PO SCH (09:00)
[2016-12-22] MEDS: MINERAL OIL/PETROL OINT 396 GM JAR TP SCH ×2 (09:00→21:24)
[2016-12-22] MEDS: HYDROGEN PEROXIDE 480 ML BOTTLE TP SCH ×2 (09:00→21:24)
[2016-12-22] MEDS: VIT B CMPLX 3/FA/VIT C/BIOTIN 1 TAB TABLET PO SCH (09:00)
[2016-12-22] MEDS: HEPARIN SODIUM, PORCINE 5000 UNITS/1 ML VIAL SQ SCH ×2 (09:00→21:24)
[2016-12-22] MEDS: GUAIFENESIN/D-METHORPHAN HB 5 ML UDC PO PRN ×2 (14:54→21:25)
[2016-12-22 20:11] VITALS: BP 166/72
[2016-12-22] MEDS: DOCUSATE SODIUM 100 MG CAPSULE PO SCH (21:22)
[2016-12-22] MEDS: ASCORBIC ACID 500 MG TABLET PO SCH (21:23)
[2016-12-22] MEDS: TEMAZEPAM 15 MG CAPSULE PO SCH (21:24)
[2016-12-22] MEDS: [UNRECOGNIZED DRUG - OTHER] TP SCH (21:24)
[2016-12-22] MEDS: MONTELUKAST SODIUM (10MG) 10 MG TABLET PO SCH (21:24)
[2016-12-22] MEDS: GABAPENTIN 100 MG CAPSULE PO SCH (21:24)
[2016-12-22] MEDS: ATARAX 25 MG PO PRN (21:25)
[2016-12-23] MEDS: ALBUTEROL FS 2.5 MG/3 ML VIAL.NEB NEB SCH ×4 (01:04→19:50)
[2016-12-23] MEDS: IPRATROPIUM NEB FS 0.5 MG/2.5 ML AMPUL.NEB IH SCH ×4 (01:04→19:50)
[2016-12-23] MEDS: PANTOPRAZOLE 40 MG TABLET.DR PO SCH (06:08)
[2016-12-23] MEDS: BLOOD SUGAR DIAGNOSTIC 1 EACH STRIP VI SCH ×3 (07:30→17:54)
[2016-12-23 07:39] VITALS: BP 137/79
[2016-12-23] MEDS: BUDESONIDE RESPULE INH 0.5 MG/2 ML AMPUL.NEB IH SCH ×2 (08:03→19:50)
[2016-12-23] MEDS: POLYVINYL ALCOHOL 15 ML BOTTLE EACHEYE SCH ×4 (09:00→21:10)
[2016-12-23] MEDS: GLYCOPYRROLATE 1 MG TABLET GT SCH ×2 (09:00→21:10)
[2016-12-23] MEDS: SITAGLIPTIN PHOSPHATE 25 MG TABLET PO SCH (09:00)
[2016-12-23] MEDS: PROSOURCE / PROSTAT (PYXIS) 30 ML UDC PO SCH ×3 (09:00→17:56)
[2016-12-23] MEDS: predniSONE 10 MG TABLET PO SCH (09:00)
[2016-12-23] MEDS: MINERAL OIL/PETROL OINT 396 GM JAR TP SCH ×2 (09:00→21:11)
[2016-12-23] MEDS: SERTRALINE HCL 25 MG TABLET PO SCH (09:00)
[2016-12-23] MEDS: VIT B CMPLX 3/FA/VIT C/BIOTIN 1 TAB TABLET PO SCH (09:00)
[2016-12-23] MEDS: HEPARIN SODIUM, PORCINE 5000 UNITS/1 ML VIAL SQ SCH ×2 (09:00→21:09)
[2016-12-23] MEDS: ZINC OXIDE 56.7 GM TUBE TP SCH ×2 (09:00→21:11)
[2016-12-23] MEDS: HYDROGEN PEROXIDE 480 ML BOTTLE TP SCH ×2 (09:00→21:11)
--- NOTE | 2016-12-23 10:00 | NUR ---
Pt was offered to be sat up in [facility] but he refused. Explained benefits, but pt still refused.
[2016-12-23] MEDS: INSULIN LISPRO/ASPART 100 UNIT/ML CARTRIDGE SQ PRN ×3 (10:13→17:55)
--- NOTE | 2016-12-23 11:29 | NUR ---
Seen and examined by Dr. Prieto. Notified her that pt is requesting to be circumcised since the swelling in his penile area is bothering him. Dr. Prieto examined pt's penile area. She explained that there is no urologist in the hospital who can see the pt and if it gets worse, then pt can go to [facility] but there is no guarantee that he will be circumcised. Dr. Prieto explained to the pt that the penile area should be elevated with towels/pillowcases so that the fluids will go back to the body and it will be removed with dialysis. She told the pt that it will take time for the swelling to subside. Pt agreed to the plan.
[2016-12-23] MEDS: BISACODYL SUPP (10 MG) 10 MG/SUPP.RECT SUPP.RECT RC PRN (11:52)
[2016-12-23 21:03] VITALS: BP 158/98
[2016-12-23] MEDS: DOCUSATE SODIUM 100 MG CAPSULE PO SCH (21:10)
[2016-12-23] MEDS: ASCORBIC ACID 500 MG TABLET PO SCH (21:11)
[2016-12-23] MEDS: GABAPENTIN 100 MG CAPSULE PO SCH (21:11)
[2016-12-23] MEDS: TEMAZEPAM 15 MG CAPSULE PO SCH (21:11)
[2016-12-23] MEDS: [UNRECOGNIZED DRUG - OTHER] TP SCH (21:12)
[2016-12-23] MEDS: MONTELUKAST SODIUM (10MG) 10 MG TABLET PO SCH (21:12)
[2016-12-23] MEDS: ATARAX 25 MG PO PRN (21:13)
[2016-12-23] MEDS: GUAIFENESIN/D-METHORPHAN HB 5 ML UDC PO PRN (21:13)
[2016-12-24] MEDS: ALBUTEROL FS 2.5 MG/3 ML VIAL.NEB NEB SCH ×4 (00:34→20:06)
[2016-12-24] MEDS: IPRATROPIUM NEB FS 0.5 MG/2.5 ML AMPUL.NEB IH SCH ×4 (00:34→20:06)
[2016-12-24] MEDS: PANTOPRAZOLE 40 MG TABLET.DR PO SCH (06:13)
[2016-12-24] MEDS: BLOOD SUGAR DIAGNOSTIC 1 EACH STRIP VI SCH ×3 (06:45→18:23)
[2016-12-24 08:00] VITALS: BP 139/84
[2016-12-24] MEDS: BUDESONIDE RESPULE INH 0.5 MG/2 ML AMPUL.NEB IH SCH ×2 (08:03→20:06)
[2016-12-24] MEDS: GLYCOPYRROLATE 1 MG TABLET GT SCH ×2 (08:18→21:17)
[2016-12-24] MEDS: PROSOURCE / PROSTAT (PYXIS) 30 ML UDC PO SCH ×3 (08:18→17:00)
[2016-12-24] MEDS: SERTRALINE HCL 25 MG TABLET PO SCH (08:18)
[2016-12-24] MEDS: SITAGLIPTIN PHOSPHATE 25 MG TABLET PO SCH (08:18)
[2016-12-24] MEDS: VIT B CMPLX 3/FA/VIT C/BIOTIN 1 TAB TABLET PO SCH (08:18)
[2016-12-24] MEDS: POLYVINYL ALCOHOL 15 ML BOTTLE EACHEYE SCH ×4 (08:18→21:17)
[2016-12-24] MEDS: predniSONE 10 MG TABLET PO SCH (08:18)
[2016-12-24] MEDS: HEPARIN SODIUM, PORCINE 5000 UNITS/1 ML VIAL SQ SCH ×2 (08:19→21:17)
[2016-12-24] MEDS: MINERAL OIL/PETROL OINT 396 GM JAR TP SCH ×2 (08:20→21:17)
[2016-12-24] MEDS: HYDROGEN PEROXIDE 480 ML BOTTLE TP SCH ×2 (09:00→21:17)
[2016-12-24] MEDS: ZINC OXIDE 56.7 GM TUBE TP SCH ×2 (09:00→21:18)
[2016-12-24] MEDS: GUAIFENESIN/D-METHORPHAN HB 5 ML UDC PO PRN ×2 (09:00→21:18)
[2016-12-24] MEDS: INSULIN LISPRO/ASPART 100 UNIT/ML CARTRIDGE SQ PRN (18:25)
[2016-12-24 19:52] VITALS: BP 145/89
[2016-12-24] MEDS: ASCORBIC ACID 500 MG TABLET PO SCH (21:17)
[2016-12-24] MEDS: DOCUSATE SODIUM 100 MG CAPSULE PO SCH (21:17)
[2016-12-24] MEDS: GABAPENTIN 100 MG CAPSULE PO SCH (21:18)
[2016-12-24] MEDS: MONTELUKAST SODIUM (10MG) 10 MG TABLET PO SCH (21:18)
[2016-12-24] MEDS: ATARAX 25 MG PO PRN (21:18)
[2016-12-24] MEDS: TEMAZEPAM 15 MG CAPSULE PO SCH (21:18)
[2016-12-24] MEDS: [UNRECOGNIZED DRUG - OTHER] TP SCH (21:18)
[2016-12-25] MEDS: ALBUTEROL FS 2.5 MG/3 ML VIAL.NEB NEB SCH ×4 (02:02→19:31)
[2016-12-25] MEDS: IPRATROPIUM NEB FS 0.5 MG/2.5 ML AMPUL.NEB IH SCH ×4 (02:02→19:31)
[2016-12-25] MEDS: PANTOPRAZOLE 40 MG TABLET.DR PO SCH (06:37)
[2016-12-25] MEDS: BLOOD SUGAR DIAGNOSTIC 1 EACH STRIP VI SCH ×3 (06:37→17:35)
[2016-12-25 07:50] VITALS: BP 154/95
[2016-12-25] MEDS: SITAGLIPTIN PHOSPHATE 25 MG TABLET PO SCH (08:23)
[2016-12-25] MEDS: MINERAL OIL/PETROL OINT 396 GM JAR TP SCH ×2 (08:23→21:18)
[2016-12-25] MEDS: HYDROGEN PEROXIDE 480 ML BOTTLE TP SCH ×2 (08:23→21:18)
[2016-12-25] MEDS: VIT B CMPLX 3/FA/VIT C/BIOTIN 1 TAB TABLET PO SCH (08:23)
[2016-12-25] MEDS: GLYCOPYRROLATE 1 MG TABLET GT SCH ×2 (08:23→21:17)
[2016-12-25] MEDS: HEPARIN SODIUM, PORCINE 5000 UNITS/1 ML VIAL SQ SCH ×2 (08:23→21:17)
[2016-12-25] MEDS: predniSONE 10 MG TABLET PO SCH (08:23)
[2016-12-25] MEDS: SERTRALINE HCL 25 MG TABLET PO SCH (08:23)
[2016-12-25] MEDS: PROSOURCE / PROSTAT (PYXIS) 30 ML UDC PO SCH ×3 (08:23→17:15)
[2016-12-25] MEDS: POLYVINYL ALCOHOL 15 ML BOTTLE EACHEYE SCH ×4 (08:23→21:14)
[2016-12-25] MEDS: ZINC OXIDE 56.7 GM TUBE TP SCH ×2 (08:24→21:18)
[2016-12-25] MEDS: BUDESONIDE RESPULE INH 0.5 MG/2 ML AMPUL.NEB IH SCH ×2 (08:44→20:04)
[2016-12-25] MEDS: NAPROXEN 500 MG TABLET PO PRN (09:00)
[2016-12-25] MEDS: GUAIFENESIN/D-METHORPHAN HB 5 ML UDC PO PRN ×2 (09:00→21:18)
[2016-12-25] MEDS: INSULIN LISPRO/ASPART 100 UNIT/ML CARTRIDGE SQ PRN ×2 (11:53→17:36)
[2016-12-25] MEDS: BISACODYL SUPP (10 MG) 10 MG/SUPP.RECT SUPP.RECT RC PRN (14:00)
[2016-12-25 20:10] VITALS: BP 158/98
[2016-12-25] MEDS: DOCUSATE SODIUM 100 MG CAPSULE PO SCH (21:17)
[2016-12-25] MEDS: ASCORBIC ACID 500 MG TABLET PO SCH (21:17)
[2016-12-25] MEDS: MONTELUKAST SODIUM (10MG) 10 MG TABLET PO SCH (21:18)
[2016-12-25] MEDS: [UNRECOGNIZED DRUG - OTHER] TP SCH (21:18)
[2016-12-25] MEDS: GABAPENTIN 100 MG CAPSULE PO SCH (21:18)
[2016-12-25] MEDS: TEMAZEPAM 15 MG CAPSULE PO SCH (21:18)
[2016-12-25] MEDS: ATARAX 25 MG PO PRN (21:18)
[2016-12-26] MEDS: IPRATROPIUM NEB FS 0.5 MG/2.5 ML AMPUL.NEB IH SCH ×4 (01:40→20:23)
[2016-12-26] MEDS: ALBUTEROL FS 2.5 MG/3 ML VIAL.NEB NEB SCH ×4 (01:40→20:23)
[2016-12-26] MEDS: BLOOD SUGAR DIAGNOSTIC 1 EACH STRIP VI SCH ×3 (06:35→17:18)
[2016-12-26] MEDS: PANTOPRAZOLE 40 MG TABLET.DR PO SCH (06:35)
[2016-12-26 07:52] VITALS: BP 152/101
[2016-12-26] MEDS: BUDESONIDE RESPULE INH 0.5 MG/2 ML AMPUL.NEB IH SCH ×2 (08:01→20:25)
[2016-12-26] MEDS: POLYVINYL ALCOHOL 15 ML BOTTLE EACHEYE SCH ×4 (08:12→21:38)
[2016-12-26] MEDS: GLYCOPYRROLATE 1 MG TABLET GT SCH ×2 (08:13→21:38)
[2016-12-26] MEDS: VIT B CMPLX 3/FA/VIT C/BIOTIN 1 TAB TABLET PO SCH (08:14)
[2016-12-26] MEDS: SITAGLIPTIN PHOSPHATE 25 MG TABLET PO SCH (08:14)
[2016-12-26] MEDS: predniSONE 10 MG TABLET PO SCH (08:14)
[2016-12-26] MEDS: PROSOURCE / PROSTAT (PYXIS) 30 ML UDC PO SCH ×3 (08:15→17:18)
[2016-12-26] MEDS: SERTRALINE HCL 25 MG TABLET PO SCH (08:15)
[2016-12-26] MEDS: MINERAL OIL/PETROL OINT 396 GM JAR TP SCH ×2 (08:15→21:39)
[2016-12-26] MEDS: HEPARIN SODIUM, PORCINE 5000 UNITS/1 ML VIAL SQ SCH ×2 (08:17→21:38)
[2016-12-26] MEDS: ZINC OXIDE 56.7 GM TUBE TP SCH ×2 (08:17→21:39)
[2016-12-26] MEDS: HYDROGEN PEROXIDE 480 ML BOTTLE TP SCH ×2 (08:43→21:39)
[2016-12-26] MEDS: INSULIN LISPRO/ASPART 100 UNIT/ML CARTRIDGE SQ PRN (17:20)
[2016-12-26 20:08] VITALS: BP 155/93
[2016-12-26] MEDS: ASCORBIC ACID 500 MG TABLET PO SCH (21:38)
[2016-12-26] MEDS: DOCUSATE SODIUM 100 MG CAPSULE PO SCH (21:38)
[2016-12-26] MEDS: GABAPENTIN 100 MG CAPSULE PO SCH (21:39)
[2016-12-26] MEDS: MONTELUKAST SODIUM (10MG) 10 MG TABLET PO SCH (21:39)
[2016-12-26] MEDS: GUAIFENESIN/D-METHORPHAN HB 5 ML UDC PO PRN (21:39)
[2016-12-26] MEDS: TEMAZEPAM 15 MG CAPSULE PO SCH (21:39)
[2016-12-26] MEDS: [UNRECOGNIZED DRUG - OTHER] TP SCH (21:39)
--- NOTE | 2016-12-26 21:41 | NUR ---
Pt with dry coughing episode noted, offered warm water, routine resp tx given by rt, pt is requesting for prn cough medicine , Prn Robitussin 10 ml given for cough per pt's request and coughing episode unrelieved by non pharmacologic interventions. Will cont to monitor.
--- NOTE | 2016-12-26 22:40 | NUR ---
Pt noted sleeping at this time, no coughing episode noted. Will cont to monitor and anticipate pt's needs.
[2016-12-27] MEDS: ALBUTEROL FS 2.5 MG/3 ML VIAL.NEB NEB SCH ×4 (02:08→20:22)
[2016-12-27] MEDS: IPRATROPIUM NEB FS 0.5 MG/2.5 ML AMPUL.NEB IH SCH ×4 (02:08→20:22)
[2016-12-27] MEDS: PANTOPRAZOLE 40 MG TABLET.DR PO SCH (05:17)
[2016-12-27] MEDS: INSULIN LISPRO/ASPART 100 UNIT/ML CARTRIDGE SQ PRN ×3 (06:33→17:05)
[2016-12-27] MEDS: BLOOD SUGAR DIAGNOSTIC 1 EACH STRIP VI SCH ×3 (06:33→17:04)
[2016-12-27 07:36] VITALS: BP 146/95
[2016-12-27] MEDS: BUDESONIDE RESPULE INH 0.5 MG/2 ML AMPUL.NEB IH SCH ×2 (08:07→21:00)
[2016-12-27] MEDS: HEPARIN SODIUM, PORCINE 5000 UNITS/1 ML VIAL SQ SCH ×2 (09:00→21:16)
[2016-12-27] MEDS: SITAGLIPTIN PHOSPHATE 25 MG TABLET PO SCH (09:00)
[2016-12-27] MEDS: MINERAL OIL/PETROL OINT 396 GM JAR TP SCH ×2 (09:00→21:16)
[2016-12-27] MEDS: predniSONE 10 MG TABLET PO SCH (09:00)
[2016-12-27] MEDS: SERTRALINE HCL 25 MG TABLET PO SCH (09:00)
[2016-12-27] MEDS: VIT B CMPLX 3/FA/VIT C/BIOTIN 1 TAB TABLET PO SCH (09:00)
[2016-12-27] MEDS: ZINC OXIDE 56.7 GM TUBE TP SCH ×2 (09:00→21:16)
[2016-12-27] MEDS: GLYCOPYRROLATE 1 MG TABLET GT SCH ×2 (09:00→21:16)
[2016-12-27] MEDS: HYDROGEN PEROXIDE 480 ML BOTTLE TP SCH ×2 (09:00→21:16)
[2016-12-27] MEDS: POLYVINYL ALCOHOL 15 ML BOTTLE EACHEYE SCH ×4 (09:00→21:16)
[2016-12-27] MEDS: PROSOURCE / PROSTAT (PYXIS) 30 ML UDC PO SCH ×3 (09:00→17:00)
[2016-12-27] MEDS: GUAIFENESIN/D-METHORPHAN HB 5 ML UDC PO PRN ×2 (10:54→21:17)
[2016-12-27] MEDS: BISACODYL SUPP (10 MG) 10 MG/SUPP.RECT SUPP.RECT RC PRN (17:24)
[2016-12-27] MEDS: CLONIDINE HCL 0.1 MG TABLET PO PRN (20:00)
[2016-12-27 20:02] VITALS: BP 156/105
[2016-12-27] MEDS: [UNRECOGNIZED DRUG - OTHER] TP SCH (21:16)
[2016-12-27] MEDS: TEMAZEPAM 15 MG CAPSULE PO SCH (21:16)
[2016-12-27] MEDS: DOCUSATE SODIUM 100 MG CAPSULE PO SCH (21:16)
[2016-12-27] MEDS: GABAPENTIN 100 MG CAPSULE PO SCH (21:16)
[2016-12-27] MEDS: ASCORBIC ACID 500 MG TABLET PO SCH (21:16)
[2016-12-27] MEDS: MONTELUKAST SODIUM (10MG) 10 MG TABLET PO SCH (21:16)
--- NOTE | 2016-12-27 21:55 | NUR ---
Prn Catapres 0.1 mg tab given to pt @ 1999 as ordered for sbp >155 dbp>100, Noted b/p 156/105 , after an hour re-checked pt's bp noted 140/87 hr 89 @ 2100.
[2016-12-28] MEDS: ALBUTEROL FS 2.5 MG/3 ML VIAL.NEB NEB SCH ×4 (01:22→19:30)
[2016-12-28] MEDS: IPRATROPIUM NEB FS 0.5 MG/2.5 ML AMPUL.NEB IH SCH ×4 (01:22→19:30)
[2016-12-28] MEDS: PANTOPRAZOLE 40 MG TABLET.DR PO SCH (05:30)
[2016-12-28] MEDS: INSULIN LISPRO/ASPART 100 UNIT/ML CARTRIDGE SQ PRN ×2 (06:41→17:29)
[2016-12-28] MEDS: BLOOD SUGAR DIAGNOSTIC 1 EACH STRIP VI SCH ×3 (06:41→17:28)
[2016-12-28 08:00] VITALS: BP 143/94
[2016-12-28] MEDS: BUDESONIDE RESPULE INH 0.5 MG/2 ML AMPUL.NEB IH SCH ×2 (08:10→21:20)
[2016-12-28] MEDS: SITAGLIPTIN PHOSPHATE 25 MG TABLET PO SCH (08:44)
[2016-12-28] MEDS: SERTRALINE HCL 25 MG TABLET PO SCH (08:44)
[2016-12-28] MEDS: POLYVINYL ALCOHOL 15 ML BOTTLE EACHEYE SCH ×4 (08:44→21:00)
[2016-12-28] MEDS: predniSONE 10 MG TABLET PO SCH (08:44)
[2016-12-28] MEDS: VIT B CMPLX 3/FA/VIT C/BIOTIN 1 TAB TABLET PO SCH (08:44)
[2016-12-28] MEDS: PROSOURCE / PROSTAT (PYXIS) 30 ML UDC PO SCH ×3 (08:44→17:00)
[2016-12-28] MEDS: GLYCOPYRROLATE 1 MG TABLET GT SCH ×2 (08:44→21:00)
[2016-12-28] MEDS: ZINC OXIDE 56.7 GM TUBE TP SCH ×2 (08:45→21:00)
[2016-12-28] MEDS: HEPARIN SODIUM, PORCINE 5000 UNITS/1 ML VIAL SQ SCH ×2 (08:45→21:00)
[2016-12-28] MEDS: HYDROGEN PEROXIDE 480 ML BOTTLE TP SCH ×2 (08:45→21:00)
[2016-12-28] MEDS: MINERAL OIL/PETROL OINT 396 GM JAR TP SCH ×2 (08:45→21:00)
--- NOTE | 2016-12-28 13:00 | NUR ---
Got flu vaccine from dialysis centre on right deltiod.spoke to denis.continue to monitor.
[2016-12-28 20:03] VITALS: BP 139/87
[2016-12-28] MEDS: DOCUSATE SODIUM 100 MG CAPSULE PO SCH (21:00)
[2016-12-28] MEDS: ASCORBIC ACID 500 MG TABLET PO SCH (21:00)
[2016-12-28] MEDS: GABAPENTIN 100 MG CAPSULE PO SCH (21:00)
[2016-12-28] MEDS: MONTELUKAST SODIUM (10MG) 10 MG TABLET PO SCH (21:01)
[2016-12-28] MEDS: [UNRECOGNIZED DRUG - OTHER] TP SCH (21:01)
[2016-12-28] MEDS: GUAIFENESIN/D-METHORPHAN HB 5 ML UDC PO PRN (21:01)
[2016-12-28] MEDS: TEMAZEPAM 15 MG CAPSULE PO SCH (21:01)
[2016-12-29] MEDS: IPRATROPIUM NEB FS 0.5 MG/2.5 ML AMPUL.NEB IH SCH ×4 (02:26→19:30)
[2016-12-29] MEDS: ALBUTEROL FS 2.5 MG/3 ML VIAL.NEB NEB SCH ×4 (02:26→19:30)
[2016-12-29] MEDS: PANTOPRAZOLE 40 MG TABLET.DR PO SCH (05:23)
[2016-12-29] MEDS: BLOOD SUGAR DIAGNOSTIC 1 EACH STRIP VI SCH ×3 (06:41→17:00)
[2016-12-29] MEDS: INSULIN LISPRO/ASPART 100 UNIT/ML CARTRIDGE SQ PRN ×3 (06:42→17:01)
--- NOTE | 2016-12-29 06:48 | NUR ---
Pt remains afebrile, no a/r to flu vaccine noted, slept good during shift, no c/o pain. Am bs 80. All needs attended and met.
[2016-12-29 08:01] VITALS: BP 154/90
[2016-12-29] MEDS: POLYVINYL ALCOHOL 15 ML BOTTLE EACHEYE SCH ×4 (09:00→21:32)
[2016-12-29] MEDS: SITAGLIPTIN PHOSPHATE 25 MG TABLET PO SCH (09:00)
[2016-12-29] MEDS: GLYCOPYRROLATE 1 MG TABLET GT SCH ×2 (09:00→21:32)
[2016-12-29] MEDS: MINERAL OIL/PETROL OINT 396 GM JAR TP SCH ×2 (09:00→21:32)
[2016-12-29] MEDS: BUDESONIDE RESPULE INH 0.5 MG/2 ML AMPUL.NEB IH SCH ×2 (09:00→21:33)
[2016-12-29] MEDS: PROSOURCE / PROSTAT (PYXIS) 30 ML UDC PO SCH ×3 (09:00→17:00)
[2016-12-29] MEDS: SERTRALINE HCL 25 MG TABLET PO SCH (09:00)
[2016-12-29] MEDS: HYDROGEN PEROXIDE 480 ML BOTTLE TP SCH ×2 (09:00→21:32)
[2016-12-29] MEDS: ZINC OXIDE 56.7 GM TUBE TP SCH ×2 (09:00→21:32)
[2016-12-29] MEDS: HEPARIN SODIUM, PORCINE 5000 UNITS/1 ML VIAL SQ SCH ×2 (09:00→21:32)
[2016-12-29] MEDS: VIT B CMPLX 3/FA/VIT C/BIOTIN 1 TAB TABLET PO SCH (09:00)
[2016-12-29] MEDS: predniSONE 10 MG TABLET PO SCH (09:00)
[2016-12-29] MEDS: DOCUSATE SODIUM 100 MG CAPSULE PO SCH (21:32)
[2016-12-29] MEDS: GABAPENTIN 100 MG CAPSULE PO SCH (21:32)
[2016-12-29] MEDS: ASCORBIC ACID 500 MG TABLET PO SCH (21:32)
[2016-12-29] MEDS: TEMAZEPAM 15 MG CAPSULE PO SCH (21:33)
[2016-12-29] MEDS: [UNRECOGNIZED DRUG - OTHER] TP SCH (21:33)
[2016-12-29] MEDS: MONTELUKAST SODIUM (10MG) 10 MG TABLET PO SCH (21:33)
[2016-12-29 21:39] VITALS: BP 144/98
[2016-12-30] MEDS: ALBUTEROL FS 2.5 MG/3 ML VIAL.NEB NEB SCH ×4 (01:14→20:25)
[2016-12-30] MEDS: IPRATROPIUM NEB FS 0.5 MG/2.5 ML AMPUL.NEB IH SCH ×4 (01:14→20:25)
[2016-12-30] MEDS: PANTOPRAZOLE 40 MG TABLET.DR PO SCH (05:49)
[2016-12-30] MEDS: BLOOD SUGAR DIAGNOSTIC 1 EACH STRIP VI SCH ×3 (07:46→18:28)
[2016-12-30] MEDS: INSULIN LISPRO/ASPART 100 UNIT/ML CARTRIDGE SQ PRN ×3 (07:47→18:30)
[2016-12-30] MEDS: POLYVINYL ALCOHOL 15 ML BOTTLE EACHEYE SCH ×4 (08:20→21:36)
[2016-12-30] MEDS: VIT B CMPLX 3/FA/VIT C/BIOTIN 1 TAB TABLET PO SCH (08:21)
[2016-12-30] MEDS: SERTRALINE HCL 25 MG TABLET PO SCH (08:21)
[2016-12-30] MEDS: predniSONE 10 MG TABLET PO SCH (08:21)
[2016-12-30] MEDS: GLYCOPYRROLATE 1 MG TABLET GT SCH ×2 (08:21→21:36)
[2016-12-30] MEDS: SITAGLIPTIN PHOSPHATE 25 MG TABLET PO SCH (08:21)
[2016-12-30] MEDS: PROSOURCE / PROSTAT (PYXIS) 30 ML UDC PO SCH ×3 (08:21→16:23)
[2016-12-30] MEDS: HEPARIN SODIUM, PORCINE 5000 UNITS/1 ML VIAL SQ SCH ×2 (08:22→21:37)
[2016-12-30] MEDS: HYDROGEN PEROXIDE 480 ML BOTTLE TP SCH ×2 (08:22→21:37)
[2016-12-30] MEDS: MINERAL OIL/PETROL OINT 396 GM JAR TP SCH ×2 (08:22→21:37)
[2016-12-30] MEDS: ZINC OXIDE 56.7 GM TUBE TP SCH ×2 (08:22→21:37)
[2016-12-30] MEDS: GUAIFENESIN/D-METHORPHAN HB 5 ML UDC PO PRN ×2 (08:23→18:28)
[2016-12-30] MEDS: BUDESONIDE RESPULE INH 0.5 MG/2 ML AMPUL.NEB IH SCH ×2 (08:35→20:42)
[2016-12-30 21:14] VITALS: BP 156/89
[2016-12-30] MEDS: DOCUSATE SODIUM 100 MG CAPSULE PO SCH (21:36)
[2016-12-30] MEDS: ASCORBIC ACID 500 MG TABLET PO SCH (21:36)
[2016-12-30] MEDS: GABAPENTIN 100 MG CAPSULE PO SCH (21:37)
[2016-12-30] MEDS: MONTELUKAST SODIUM (10MG) 10 MG TABLET PO SCH (21:37)
[2016-12-30] MEDS: TEMAZEPAM 15 MG CAPSULE PO SCH (21:37)
[2016-12-30] MEDS: [UNRECOGNIZED DRUG - OTHER] TP SCH (21:37)
[2016-12-31] MEDS: ALBUTEROL FS 2.5 MG/3 ML VIAL.NEB NEB SCH ×4 (02:17→19:53)
[2016-12-31] MEDS: IPRATROPIUM NEB FS 0.5 MG/2.5 ML AMPUL.NEB IH SCH ×4 (02:17→19:53)
[2016-12-31] MEDS: PANTOPRAZOLE 40 MG TABLET.DR PO SCH (06:16)
[2016-12-31] MEDS: PROSOURCE / PROSTAT (PYXIS) 30 ML UDC PO SCH ×3 (07:53→17:00)
[2016-12-31] MEDS: HEPARIN SODIUM, PORCINE 5000 UNITS/1 ML VIAL SQ SCH ×2 (07:55→21:00)
[2016-12-31] MEDS: MINERAL OIL/PETROL OINT 396 GM JAR TP SCH ×2 (07:57→21:00)
[2016-12-31] MEDS: HYDROGEN PEROXIDE 480 ML BOTTLE TP SCH ×2 (07:57→21:00)
[2016-12-31] MEDS: SERTRALINE HCL 25 MG TABLET PO SCH (07:58)
[2016-12-31] MEDS: ZINC OXIDE 56.7 GM TUBE TP SCH ×2 (07:58→21:00)
[2016-12-31] MEDS: predniSONE 10 MG TABLET PO SCH (07:59)
[2016-12-31] MEDS: BUDESONIDE RESPULE INH 0.5 MG/2 ML AMPUL.NEB IH SCH ×2 (08:00→21:50)
[2016-12-31] MEDS: VIT B CMPLX 3/FA/VIT C/BIOTIN 1 TAB TABLET PO SCH (08:00)
[2016-12-31] MEDS: GLYCOPYRROLATE 1 MG TABLET GT SCH ×2 (08:00→21:59)
[2016-12-31] MEDS: SITAGLIPTIN PHOSPHATE 25 MG TABLET PO SCH (08:01)
[2016-12-31] MEDS: POLYVINYL ALCOHOL 15 ML BOTTLE EACHEYE SCH ×4 (08:01→21:59)
[2016-12-31] MEDS: BLOOD SUGAR DIAGNOSTIC 1 EACH STRIP VI SCH ×3 (08:02→18:58)
[2016-12-31 09:00] VITALS: BP 156/89
--- NOTE | 2016-12-31 09:20 | NUR ---
RN NOTES PT TRANSPORTED BY EMT VIA GURNEY TO DIALYSIS CLINIC.
--- NOTE | 2016-12-31 10:17 | NUR ---
Resident at the dialysis center, MD Gardner made rounds no new order given.
--- NOTE | 2016-12-31 13:45 | NUR ---
RN NOTES POST DIALYSIS PT RETURNED FROM DIALYSIS UNIT. A&OX4. O2 SATS 98% TRACH. BLOOD GLUCOSE 118 FINGERSTICK. VS 154/78, 88, 20, 98.0. PT RESTING COMFORTABLY WATCHING TV. CALL LIGHT IN REACH. BED IN LOW LOCKED POSITION BED RAILS UP X 2.
[2016-12-31] MEDS: GUAIFENESIN/D-METHORPHAN HB 5 ML UDC PO PRN (18:58)
[2016-12-31 19:54] VITALS: BP 155/90
[2016-12-31] MEDS: ASCORBIC ACID 500 MG TABLET PO SCH (21:00)
[2016-12-31] MEDS: DOCUSATE SODIUM 100 MG CAPSULE PO SCH (21:59)
[2016-12-31] MEDS: MONTELUKAST SODIUM (10MG) 10 MG TABLET PO SCH (22:01)
[2016-12-31] MEDS: GABAPENTIN 100 MG CAPSULE PO SCH (22:01)
[2016-12-31] MEDS: [UNRECOGNIZED DRUG - OTHER] TP SCH (22:01)
[2016-12-31] MEDS: TEMAZEPAM 15 MG CAPSULE PO SCH (22:01)
[2017-01-01] MEDS: IPRATROPIUM NEB FS 0.5 MG/2.5 ML AMPUL.NEB IH SCH ×4 (00:53→19:55)
[2017-01-01] MEDS: ALBUTEROL FS 2.5 MG/3 ML VIAL.NEB NEB SCH ×4 (00:53→19:55)
[2017-01-01] MEDS: PANTOPRAZOLE 40 MG TABLET.DR PO SCH (05:43)
[2017-01-01] MEDS: BLOOD SUGAR DIAGNOSTIC 1 EACH STRIP VI SCH ×3 (07:41→17:50)
[2017-01-01 08:23] VITALS: BP 138/89
[2017-01-01] MEDS: BUDESONIDE RESPULE INH 0.5 MG/2 ML AMPUL.NEB IH SCH ×2 (08:40→20:48)
[2017-01-01] MEDS: SERTRALINE HCL 25 MG TABLET PO SCH (09:00)
[2017-01-01] MEDS: MINERAL OIL/PETROL OINT 396 GM JAR TP SCH ×2 (09:00→21:15)
[2017-01-01] MEDS: SITAGLIPTIN PHOSPHATE 25 MG TABLET PO SCH (09:00)
[2017-01-01] MEDS: POLYVINYL ALCOHOL 15 ML BOTTLE EACHEYE SCH ×4 (09:00→21:14)
[2017-01-01] MEDS: VIT B CMPLX 3/FA/VIT C/BIOTIN 1 TAB TABLET PO SCH (09:00)
[2017-01-01] MEDS: ZINC OXIDE 56.7 GM TUBE TP SCH ×2 (09:00→21:15)
[2017-01-01] MEDS: HYDROGEN PEROXIDE 480 ML BOTTLE TP SCH ×2 (09:00→21:15)
[2017-01-01] MEDS: GLYCOPYRROLATE 1 MG TABLET GT SCH ×2 (09:00→21:14)
[2017-01-01] MEDS: HEPARIN SODIUM, PORCINE 5000 UNITS/1 ML VIAL SQ SCH ×2 (09:00→21:15)
[2017-01-01] MEDS: predniSONE 10 MG TABLET PO SCH (09:00)
[2017-01-01] MEDS: PROSOURCE / PROSTAT (PYXIS) 30 ML UDC PO SCH ×3 (09:00→17:50)
[2017-01-01] MEDS: MAG HYDROX/AL HYDROX/SIMETH 30 ML UDC PO PRN (15:21)
[2017-01-01] MEDS: ACETAMINOPHEN 650 MG/20 ML UDC- FOR SA PATIENTS ONLY PO PRN (15:22)
--- NOTE | 2017-01-01 17:00 | NUR ---
Notified Dr. Gardner resident complaining of not feeling good. He said " it feels that my lungs are collapsing and it feels burning when I eat", V/s 151/93, 81, 16, 99% and BS 159. New order received for Chest Xray. Resident notified of new order and temporary room change tonight due to installation of new call light system.
--- NOTE | 2017-01-01 21:00 | NUR ---
CXR RESULT RELAYED TO DR. HARDY NO NEW ORDER.PT COMFORTABLE NO SIGNS OF RESPIRATORY DISTRESS.WILL CONTINUE TO MONITOR.
[2017-01-01] MEDS: ASCORBIC ACID 500 MG TABLET PO SCH (21:14)
[2017-01-01] MEDS: DOCUSATE SODIUM 100 MG CAPSULE PO SCH (21:14)
[2017-01-01] MEDS: GABAPENTIN 100 MG CAPSULE PO SCH (21:15)
[2017-01-01] MEDS: [UNRECOGNIZED DRUG - OTHER] TP SCH (21:15)
[2017-01-01] MEDS: TEMAZEPAM 15 MG CAPSULE PO SCH (21:15)
[2017-01-01] MEDS: MONTELUKAST SODIUM (10MG) 10 MG TABLET PO SCH (21:15)
[2017-01-01 23:11] VITALS: BP 153/103
[2017-01-02] MEDS: IPRATROPIUM NEB FS 0.5 MG/2.5 ML AMPUL.NEB IH SCH ×4 (02:09→19:44)
[2017-01-02] MEDS: ALBUTEROL FS 2.5 MG/3 ML VIAL.NEB NEB SCH ×4 (02:09→19:44)
[2017-01-02] MEDS: PANTOPRAZOLE 40 MG TABLET.DR PO SCH (05:34)
[2017-01-02] MEDS: BLOOD SUGAR DIAGNOSTIC 1 EACH STRIP VI SCH ×3 (07:36→17:28)
[2017-01-02] MEDS: TRAMADOL HCL 50 MG TABLET PO PRN (07:37)
[2017-01-02] MEDS: GUAIFENESIN/D-METHORPHAN HB 5 ML UDC PO PRN ×2 (07:55→21:11)
[2017-01-02] MEDS: POLYVINYL ALCOHOL 15 ML BOTTLE EACHEYE SCH ×4 (08:00→21:10)
[2017-01-02] MEDS: PROSOURCE / PROSTAT (PYXIS) 30 ML UDC PO SCH ×3 (08:00→17:28)
[2017-01-02] MEDS: SITAGLIPTIN PHOSPHATE 25 MG TABLET PO SCH (08:00)
[2017-01-02] MEDS: SERTRALINE HCL 25 MG TABLET PO SCH (08:00)
[2017-01-02] MEDS: VIT B CMPLX 3/FA/VIT C/BIOTIN 1 TAB TABLET PO SCH (08:00)
[2017-01-02] MEDS: GLYCOPYRROLATE 1 MG TABLET GT SCH ×2 (08:00→21:10)
[2017-01-02] MEDS: predniSONE 10 MG TABLET PO SCH (08:00)
[2017-01-02] MEDS: MINERAL OIL/PETROL OINT 396 GM JAR TP SCH ×2 (08:01→21:10)
[2017-01-02] MEDS: HYDROGEN PEROXIDE 480 ML BOTTLE TP SCH ×2 (08:01→21:10)
[2017-01-02] MEDS: HEPARIN SODIUM, PORCINE 5000 UNITS/1 ML VIAL SQ SCH ×2 (08:01→21:10)
[2017-01-02] MEDS: ZINC OXIDE 56.7 GM TUBE TP SCH ×2 (08:01→21:10)
--- NOTE | 2017-01-02 08:25 | NUR ---
Resident is complaining of shortness of breath.not in distress.resident is alert oriented.vital signs checked.T-98.0,P-87,R-20,BP-157/103,O2 sat-100%. made aware .Got an order for ABG .noted and carried out.RT made aware.waiting for report.continue to monitor.
[2017-01-02 08:31] VITALS: BP 129/80
[2017-01-02] MEDS: BUDESONIDE RESPULE INH 0.5 MG/2 ML AMPUL.NEB IH SCH ×2 (08:34→19:44)
[2017-01-02 09:29] LABS: ABG BASE EXCESS -5.6 mmol/L; ABG OXYGEN SATURATION 98.4 % (92.0-98.5); ABG PCO2 35.1 mmHg (35.0-45.0); ABG PH 7.356 (7.350-7.450); ABG PO2 123.8 mmHg (75.0-100.0); AaDO2 34.4 mmHg; COHb 0.7 % (0.5-1.5); MetHb 0.2 % (0.0-1.5); O2Hb 97.5 % (94.0-97.0); SITE, ABG Right Radial; VENT MODE, BG COOL AEROSOL 5LPM AT 28%
--- NOTE | 2017-01-02 13:30 | NUR ---
Seen by and BIOMEDICAL EQUIPMENT SPECIALIST nighat Garcia,notified about the SOB .resident also complaining about thick secretions when he cough.his SOB increases while changing positions.Received new order.noted and carried out .resident is alert oriented.continue to monitor.
[2017-01-02] MEDS: BISACODYL SUPP (10 MG) 10 MG/SUPP.RECT SUPP.RECT RC PRN (13:53)
[2017-01-02] MEDS: GABAPENTIN 100 MG CAPSULE PO SCH (21:10)
[2017-01-02] MEDS: MONTELUKAST SODIUM (10MG) 10 MG TABLET PO SCH (21:10)
[2017-01-02] MEDS: TEMAZEPAM 15 MG CAPSULE PO SCH (21:10)
[2017-01-02] MEDS: DOCUSATE SODIUM 100 MG CAPSULE PO SCH (21:10)
[2017-01-02] MEDS: ASCORBIC ACID 500 MG TABLET PO SCH (21:10)
[2017-01-02] MEDS: NAPROXEN 500 MG TABLET PO PRN (21:11)
[2017-01-02] MEDS: [UNRECOGNIZED DRUG - OTHER] TP SCH (21:11)
[2017-01-02] MEDS: GUAIFENESIN LA 600 MG TABLET.SA PO SCH (21:44)
[2017-01-02 22:57] VITALS: BP 146/99
[2017-01-03] MEDS: IPRATROPIUM NEB FS 0.5 MG/2.5 ML AMPUL.NEB IH SCH ×4 (00:42→19:22)
[2017-01-03] MEDS: ALBUTEROL FS 2.5 MG/3 ML VIAL.NEB NEB SCH ×4 (00:42→19:22)
[2017-01-03] MEDS: PANTOPRAZOLE 40 MG TABLET.DR PO SCH (05:14)
[2017-01-03] MEDS: INSULIN LISPRO/ASPART 100 UNIT/ML CARTRIDGE SQ PRN (06:41)
[2017-01-03] MEDS: BLOOD SUGAR DIAGNOSTIC 1 EACH STRIP VI SCH ×3 (06:41→17:30)
[2017-01-03 08:10] VITALS: BP 154/98
[2017-01-03] MEDS: BUDESONIDE RESPULE INH 0.5 MG/2 ML AMPUL.NEB IH SCH ×2 (08:40→20:33)
[2017-01-03] MEDS: GLYCOPYRROLATE 1 MG TABLET GT SCH ×2 (08:57→21:00)
[2017-01-03] MEDS: VIT B CMPLX 3/FA/VIT C/BIOTIN 1 TAB TABLET PO SCH (08:57)
[2017-01-03] MEDS: GUAIFENESIN LA 600 MG TABLET.SA PO SCH ×2 (08:57→21:00)
[2017-01-03] MEDS: POLYVINYL ALCOHOL 15 ML BOTTLE EACHEYE SCH ×4 (08:57→21:00)
[2017-01-03] MEDS: PROSOURCE / PROSTAT (PYXIS) 30 ML UDC PO SCH ×3 (08:57→16:23)
[2017-01-03] MEDS: SITAGLIPTIN PHOSPHATE 25 MG TABLET PO SCH (08:57)
[2017-01-03] MEDS: SERTRALINE HCL 25 MG TABLET PO SCH (08:58)
[2017-01-03] MEDS: HEPARIN SODIUM, PORCINE 5000 UNITS/1 ML VIAL SQ SCH ×2 (08:59→21:00)
[2017-01-03] MEDS: ZINC OXIDE 56.7 GM TUBE TP SCH ×2 (09:00→21:01)
[2017-01-03] MEDS: MINERAL OIL/PETROL OINT 396 GM JAR TP SCH ×2 (09:00→21:00)
[2017-01-03] MEDS: HYDROGEN PEROXIDE 480 ML BOTTLE TP SCH ×2 (09:00→21:00)
--- NOTE | 2017-01-03 13:30 | NUR ---
Chest Xray report seen by Dr. Gardner and he also saw the actual film, NNO given.
[2017-01-03] MEDS: MAG HYDROX/AL HYDROX/SIMETH 30 ML UDC PO PRN (19:10)
[2017-01-03] MEDS: ASCORBIC ACID 500 MG TABLET PO SCH (21:00)
[2017-01-03] MEDS: DOCUSATE SODIUM 100 MG CAPSULE PO SCH (21:00)
[2017-01-03] MEDS: GABAPENTIN 100 MG CAPSULE PO SCH (21:01)
[2017-01-03] MEDS: MONTELUKAST SODIUM (10MG) 10 MG TABLET PO SCH (21:01)
[2017-01-03] MEDS: TEMAZEPAM 15 MG CAPSULE PO SCH (21:01)
[2017-01-03] MEDS: [UNRECOGNIZED DRUG - OTHER] TP SCH (21:01)
[2017-01-03] MEDS: IPRATROPIUM NEB FS 0.5 MG/2.5 ML AMPUL.NEB NEB PRN (22:11)
[2017-01-03] MEDS: ALBUTEROL FS 2.5 MG/3 ML VIAL.NEB NEB PRN (22:11)
--- NOTE | 2017-01-03 22:30 | NUR ---
RT PT GIVEN A PRN BREATHING TX DUE TO SLIGHT INCREASE WOB AND PT COMPLAINING OF SOB. SP02 NOTED AT 98%. SX WITH MOD THK YELLOW SECRETIONS. FIO2 ALSO INCREASED TO 35%. AFTER PRN TC GIVEN, PT STATED FEELS BETTER, WILL CONTINUE TO MONITOR T/O SHIFT. NURSE AND CHARGE NURSE NOTIFIED.
[2017-01-03 23:35] VITALS: BP 134/95
[2017-01-04] MEDS: IPRATROPIUM NEB FS 0.5 MG/2.5 ML AMPUL.NEB IH SCH ×4 (01:08→19:11)
[2017-01-04] MEDS: ALBUTEROL FS 2.5 MG/3 ML VIAL.NEB NEB SCH ×4 (01:08→19:11)
[2017-01-04] MEDS: PANTOPRAZOLE 40 MG TABLET.DR PO SCH (05:12)
[2017-01-04] MEDS: INSULIN LISPRO/ASPART 100 UNIT/ML CARTRIDGE SQ PRN (06:49)
[2017-01-04] MEDS: BLOOD SUGAR DIAGNOSTIC 1 EACH STRIP VI SCH ×3 (06:49→17:31)
[2017-01-04 07:44] VITALS: BP 133/87
[2017-01-04] MEDS: BUDESONIDE RESPULE INH 0.5 MG/2 ML AMPUL.NEB IH SCH ×2 (08:08→21:44)
[2017-01-04] MEDS: SITAGLIPTIN PHOSPHATE 25 MG TABLET PO SCH (08:39)
[2017-01-04] MEDS: predniSONE 10 MG TABLET PO SCH (08:39)
[2017-01-04] MEDS: SERTRALINE HCL 25 MG TABLET PO SCH (08:39)
[2017-01-04] MEDS: VIT B CMPLX 3/FA/VIT C/BIOTIN 1 TAB TABLET PO SCH (08:39)
[2017-01-04] MEDS: GLYCOPYRROLATE 1 MG TABLET GT SCH ×2 (08:39→20:55)
[2017-01-04] MEDS: PROSOURCE / PROSTAT (PYXIS) 30 ML UDC PO SCH ×3 (08:39→17:31)
[2017-01-04] MEDS: GUAIFENESIN LA 600 MG TABLET.SA PO SCH ×2 (08:39→20:55)
[2017-01-04] MEDS: POLYVINYL ALCOHOL 15 ML BOTTLE EACHEYE SCH ×4 (08:39→20:55)
[2017-01-04] MEDS: ZINC OXIDE 56.7 GM TUBE TP SCH ×2 (08:40→20:55)
[2017-01-04] MEDS: HEPARIN SODIUM, PORCINE 5000 UNITS/1 ML VIAL SQ SCH ×2 (08:40→20:55)
[2017-01-04] MEDS: MINERAL OIL/PETROL OINT 396 GM JAR TP SCH ×2 (08:40→20:55)
[2017-01-04] MEDS: HYDROGEN PEROXIDE 480 ML BOTTLE TP SCH ×2 (08:40→20:55)
[2017-01-04] MEDS: MAG HYDROX/AL HYDROX/SIMETH 30 ML UDC PO PRN (13:55)
--- NOTE | 2017-01-04 14:00 | NUR ---
Resident returned back from dialysis said that he feels a little bit better after dialysis. It was endorsed to dialysis nurse patient's complain for the last couple of days with regards to his breathing. Copy of the latest chest Xray sent with patient to the dialysis center. Dialysis access, intact, no bleeding. V/S stable.
[2017-01-04] MEDS: BISACODYL SUPP (10 MG) 10 MG/SUPP.RECT SUPP.RECT RC PRN (14:04)
[2017-01-04] MEDS: DOCUSATE SODIUM 100 MG CAPSULE PO SCH (20:55)
[2017-01-04] MEDS: ASCORBIC ACID 500 MG TABLET PO SCH (20:55)
[2017-01-04] MEDS: MONTELUKAST SODIUM (10MG) 10 MG TABLET PO SCH (21:29)
[2017-01-04] MEDS: TEMAZEPAM 15 MG CAPSULE PO SCH (21:29)
[2017-01-04] MEDS: GABAPENTIN 100 MG CAPSULE PO SCH (21:29)
[2017-01-04] MEDS: [UNRECOGNIZED DRUG - OTHER] TP SCH (21:29)
[2017-01-04 22:31] VITALS: BP 137/89
[2017-01-05] MEDS: ALBUTEROL FS 2.5 MG/3 ML VIAL.NEB NEB SCH ×4 (01:44→19:41)
[2017-01-05] MEDS: IPRATROPIUM NEB FS 0.5 MG/2.5 ML AMPUL.NEB IH SCH ×4 (01:44→19:41)
[2017-01-05] MEDS: PANTOPRAZOLE 40 MG TABLET.DR PO SCH (05:22)
[2017-01-05] MEDS: BLOOD SUGAR DIAGNOSTIC 1 EACH STRIP VI SCH ×3 (06:43→17:13)
[2017-01-05] MEDS: INSULIN LISPRO/ASPART 100 UNIT/ML CARTRIDGE SQ PRN ×3 (06:43→17:21)
[2017-01-05] MEDS: BUDESONIDE RESPULE INH 0.5 MG/2 ML AMPUL.NEB IH SCH ×2 (07:43→19:41)
[2017-01-05] MEDS: POLYVINYL ALCOHOL 15 ML BOTTLE EACHEYE SCH ×4 (09:33→21:36)
[2017-01-05] MEDS: PROSOURCE / PROSTAT (PYXIS) 30 ML UDC PO SCH ×3 (09:33→17:00)
[2017-01-05] MEDS: GLYCOPYRROLATE 1 MG TABLET GT SCH ×2 (09:33→21:36)
[2017-01-05] MEDS: SERTRALINE HCL 25 MG TABLET PO SCH (09:33)
[2017-01-05] MEDS: GUAIFENESIN LA 600 MG TABLET.SA PO SCH ×2 (09:33→21:36)
[2017-01-05] MEDS: SITAGLIPTIN PHOSPHATE 25 MG TABLET PO SCH (09:33)
[2017-01-05] MEDS: VIT B CMPLX 3/FA/VIT C/BIOTIN 1 TAB TABLET PO SCH (09:33)
[2017-01-05] MEDS: HEPARIN SODIUM, PORCINE 5000 UNITS/1 ML VIAL SQ SCH ×2 (09:33→21:37)
[2017-01-05] MEDS: HYDROGEN PEROXIDE 480 ML BOTTLE TP SCH ×2 (09:34→21:37)
[2017-01-05] MEDS: MINERAL OIL/PETROL OINT 396 GM JAR TP SCH ×2 (09:34→21:37)
[2017-01-05] MEDS: ZINC OXIDE 56.7 GM TUBE TP SCH ×2 (09:34→21:37)
[2017-01-05 20:00] VITALS: BP 140/90
[2017-01-05] MEDS: DOCUSATE SODIUM 100 MG CAPSULE PO SCH (21:36)
[2017-01-05] MEDS: ASCORBIC ACID 500 MG TABLET PO SCH (21:36)
[2017-01-05] MEDS: MONTELUKAST SODIUM (10MG) 10 MG TABLET PO SCH (21:37)
[2017-01-05] MEDS: GABAPENTIN 100 MG CAPSULE PO SCH (21:37)
[2017-01-05] MEDS: TEMAZEPAM 15 MG CAPSULE PO SCH (21:37)
[2017-01-05] MEDS: [UNRECOGNIZED DRUG - OTHER] TP SCH (21:38)
[2017-01-06] MEDS: IPRATROPIUM NEB FS 0.5 MG/2.5 ML AMPUL.NEB IH SCH ×4 (01:27→19:07)
[2017-01-06] MEDS: ALBUTEROL FS 2.5 MG/3 ML VIAL.NEB NEB SCH ×4 (01:27→19:07)
[2017-01-06] MEDS: PANTOPRAZOLE 40 MG TABLET.DR PO SCH (05:12)
[2017-01-06] MEDS: BUDESONIDE RESPULE INH 0.5 MG/2 ML AMPUL.NEB IH SCH ×2 (07:10→20:11)
[2017-01-06] MEDS: BLOOD SUGAR DIAGNOSTIC 1 EACH STRIP VI SCH ×3 (07:43→17:18)
[2017-01-06] MEDS: INSULIN LISPRO/ASPART 100 UNIT/ML CARTRIDGE SQ PRN ×3 (07:57→17:19)
[2017-01-06] MEDS: GUAIFENESIN LA 600 MG TABLET.SA PO SCH (08:00)
[2017-01-06] MEDS: POLYVINYL ALCOHOL 15 ML BOTTLE EACHEYE SCH ×4 (08:00→21:15)
[2017-01-06] MEDS: predniSONE 10 MG TABLET PO SCH (08:00)
[2017-01-06] MEDS: PROSOURCE / PROSTAT (PYXIS) 30 ML UDC PO SCH ×3 (08:00→17:18)
[2017-01-06] MEDS: VIT B CMPLX 3/FA/VIT C/BIOTIN 1 TAB TABLET PO SCH (08:00)
[2017-01-06] MEDS: SITAGLIPTIN PHOSPHATE 25 MG TABLET PO SCH (08:00)
[2017-01-06] MEDS: SERTRALINE HCL 25 MG TABLET PO SCH (08:00)
[2017-01-06] MEDS: GLYCOPYRROLATE 1 MG TABLET GT SCH ×2 (08:00→21:15)
[2017-01-06] MEDS: HEPARIN SODIUM, PORCINE 5000 UNITS/1 ML VIAL SQ SCH ×2 (08:07→21:15)
[2017-01-06] MEDS: MINERAL OIL/PETROL OINT 396 GM JAR TP SCH ×2 (08:59→21:15)
[2017-01-06] MEDS: HYDROGEN PEROXIDE 480 ML BOTTLE TP SCH ×2 (09:00→21:16)
[2017-01-06] MEDS: ZINC OXIDE 56.7 GM TUBE TP SCH ×2 (09:00→21:16)
[2017-01-06] MEDS: BISACODYL SUPP (10 MG) 10 MG/SUPP.RECT SUPP.RECT RC PRN (11:29)
--- NOTE | 2017-01-06 13:00 | NUR ---
Seen by ARNOL Petty. Notified her that according to pt, Mucinex keeps him awake at night. Also notified her that pt wants to start walking. Received order to DC Mucinex and change treatment to Mucomyst 20 % 1.5 cc via nebulizer BID 0900 and 1700. ARNOL Petty also ordered PT evaluation.
[2017-01-06 13:01] VITALS: BP 134/83
[2017-01-06] MEDS ORDERED: ACETYLCYSTEINE 20% ORAL SOLN 6,000 MG/30 ML VIAL INH SCH (17:00)
[2017-01-06] MEDS: DOCUSATE SODIUM 100 MG CAPSULE PO SCH (21:15)
[2017-01-06] MEDS: ASCORBIC ACID 500 MG TABLET PO SCH (21:15)
[2017-01-06] MEDS: GABAPENTIN 100 MG CAPSULE PO SCH (21:16)
[2017-01-06] MEDS: MONTELUKAST SODIUM (10MG) 10 MG TABLET PO SCH (21:16)
[2017-01-06] MEDS: TEMAZEPAM 15 MG CAPSULE PO SCH (21:16)
[2017-01-06] MEDS: [UNRECOGNIZED DRUG - OTHER] TP SCH (21:16)
[2017-01-07] MEDS: ALBUTEROL FS 2.5 MG/3 ML VIAL.NEB NEB SCH ×4 (01:28→19:02)
[2017-01-07] MEDS: IPRATROPIUM NEB FS 0.5 MG/2.5 ML AMPUL.NEB IH SCH ×4 (01:28→19:02)
[2017-01-07] MEDS: PANTOPRAZOLE 40 MG TABLET.DR PO SCH (05:58)
[2017-01-07 08:13] VITALS: BP 136/90
[2017-01-07] MEDS: POLYVINYL ALCOHOL 15 ML BOTTLE EACHEYE SCH ×4 (08:26→21:29)
[2017-01-07] MEDS: BLOOD SUGAR DIAGNOSTIC 1 EACH STRIP VI SCH ×3 (08:26→17:36)
[2017-01-07] MEDS: SITAGLIPTIN PHOSPHATE 25 MG TABLET PO SCH (08:27)
[2017-01-07] MEDS: GLYCOPYRROLATE 1 MG TABLET GT SCH ×2 (08:27→21:29)
[2017-01-07] MEDS: VIT B CMPLX 3/FA/VIT C/BIOTIN 1 TAB TABLET PO SCH (08:28)
[2017-01-07] MEDS: PROSOURCE / PROSTAT (PYXIS) 30 ML UDC PO SCH ×3 (08:28→17:36)
[2017-01-07] MEDS: SERTRALINE HCL 25 MG TABLET PO SCH (08:28)
[2017-01-07] MEDS: MINERAL OIL/PETROL OINT 396 GM JAR TP SCH ×2 (08:30→21:30)
[2017-01-07] MEDS: HYDROGEN PEROXIDE 480 ML BOTTLE TP SCH ×2 (08:30→21:30)
[2017-01-07] MEDS: ZINC OXIDE 56.7 GM TUBE TP SCH ×2 (08:40→21:32)
[2017-01-07] MEDS: HEPARIN SODIUM, PORCINE 5000 UNITS/1 ML VIAL SQ SCH ×2 (08:40→21:30)
[2017-01-07] MEDS: BUDESONIDE RESPULE INH 0.5 MG/2 ML AMPUL.NEB IH SCH ×2 (08:43→20:46)
[2017-01-07] MEDS: GUAIFENESIN/D-METHORPHAN HB 5 ML UDC PO PRN (08:51)
[2017-01-07 20:01] VITALS: BP 150/96
[2017-01-07] MEDS: DOCUSATE SODIUM 100 MG CAPSULE PO SCH (21:29)
[2017-01-07] MEDS: ASCORBIC ACID 500 MG TABLET PO SCH (21:30)
[2017-01-07] MEDS: [UNRECOGNIZED DRUG - OTHER] TP SCH (21:32)
[2017-01-07] MEDS: GABAPENTIN 100 MG CAPSULE PO SCH (21:32)
[2017-01-07] MEDS: TEMAZEPAM 15 MG CAPSULE PO SCH (21:32)
[2017-01-07] MEDS: MONTELUKAST SODIUM (10MG) 10 MG TABLET PO SCH (21:32)
[2017-01-08] MEDS: IPRATROPIUM NEB FS 0.5 MG/2.5 ML AMPUL.NEB IH SCH ×4 (01:33→19:20)
[2017-01-08] MEDS: ALBUTEROL FS 2.5 MG/3 ML VIAL.NEB NEB SCH ×4 (01:33→19:20)
[2017-01-08] MEDS: PANTOPRAZOLE 40 MG TABLET.DR PO SCH (05:33)
[2017-01-08] MEDS: BLOOD SUGAR DIAGNOSTIC 1 EACH STRIP VI SCH ×3 (07:55→17:14)
[2017-01-08] MEDS: POLYVINYL ALCOHOL 15 ML BOTTLE EACHEYE SCH ×4 (08:10→21:05)
[2017-01-08] MEDS: GLYCOPYRROLATE 1 MG TABLET GT SCH ×2 (08:11→21:05)
[2017-01-08] MEDS: PROSOURCE / PROSTAT (PYXIS) 30 ML UDC PO SCH ×3 (08:12→17:00)
[2017-01-08] MEDS: SITAGLIPTIN PHOSPHATE 25 MG TABLET PO SCH (08:13)
[2017-01-08] MEDS: MINERAL OIL/PETROL OINT 396 GM JAR TP SCH ×2 (08:15→21:05)
[2017-01-08 08:16] VITALS: BP 136/89
[2017-01-08] MEDS: HYDROGEN PEROXIDE 480 ML BOTTLE TP SCH ×2 (08:17→21:05)
[2017-01-08] MEDS: ZINC OXIDE 56.7 GM TUBE TP SCH ×2 (08:19→21:05)
[2017-01-08] MEDS: HEPARIN SODIUM, PORCINE 5000 UNITS/1 ML VIAL SQ SCH ×2 (08:22→21:05)
[2017-01-08] MEDS: SERTRALINE HCL 25 MG TABLET PO SCH (08:24)
[2017-01-08] MEDS: predniSONE 10 MG TABLET PO SCH (08:25)
[2017-01-08] MEDS: VIT B CMPLX 3/FA/VIT C/BIOTIN 1 TAB TABLET PO SCH (08:26)
[2017-01-08] MEDS: GUAIFENESIN/D-METHORPHAN HB 5 ML UDC PO PRN ×2 (08:30→15:49)
[2017-01-08] MEDS: BUDESONIDE RESPULE INH 0.5 MG/2 ML AMPUL.NEB IH SCH ×2 (08:37→20:45)
--- NOTE | 2017-01-08 09:45 | NUR ---
Seen and examined by Dr. Helen Prieto, reported that resident has been complaining of shortness of breath, 2 chest X Ray has been done, pulmonary vascular congestion and small bilateral effusions most consistent with fluid overload. Last Friday, dialysis center was notified of patient's complain of SOB and copy of Chest Xray sent with resident. Dr. Prieto told patient to inform dialysis center to pull more water if he feels congested and if there is swelling in his body such as his scrotal area. MD reassess scrotal area and was much improved. Resident verbalized understanding.
[2017-01-08] MEDS: INSULIN LISPRO/ASPART 100 UNIT/ML CARTRIDGE SQ PRN (17:16)
[2017-01-08] MEDS: ACETYLCYSTEINE 20% ORAL SOLN 6,000 MG/30 ML VIAL INH SCH (19:20)
[2017-01-08 20:13] VITALS: BP 158/99
[2017-01-08] MEDS: ASCORBIC ACID 500 MG TABLET PO SCH (21:05)
[2017-01-08] MEDS: DOCUSATE SODIUM 100 MG CAPSULE PO SCH (21:05)
[2017-01-08] MEDS: GABAPENTIN 100 MG CAPSULE PO SCH (21:05)
[2017-01-08] MEDS: TEMAZEPAM 15 MG CAPSULE PO SCH (21:05)
[2017-01-08] MEDS: [UNRECOGNIZED DRUG - OTHER] TP SCH (21:06)
[2017-01-08] MEDS: MONTELUKAST SODIUM (10MG) 10 MG TABLET PO SCH (21:06)
[2017-01-09] MEDS: ALBUTEROL FS 2.5 MG/3 ML VIAL.NEB NEB SCH ×4 (01:33→20:12)
[2017-01-09] MEDS: IPRATROPIUM NEB FS 0.5 MG/2.5 ML AMPUL.NEB IH SCH ×4 (01:33→20:13)
[2017-01-09] MEDS: PANTOPRAZOLE 40 MG TABLET.DR PO SCH (06:13)
[2017-01-09] MEDS: BLOOD SUGAR DIAGNOSTIC 1 EACH STRIP VI SCH ×3 (07:30→16:58)
[2017-01-09 08:00] VITALS: BP 148/100
[2017-01-09] MEDS: ACETYLCYSTEINE 20% ORAL SOLN 6,000 MG/30 ML VIAL INH SCH ×2 (08:05→16:05)
[2017-01-09] MEDS: BUDESONIDE RESPULE INH 0.5 MG/2 ML AMPUL.NEB IH SCH ×2 (08:05→20:31)
[2017-01-09] MEDS: POLYVINYL ALCOHOL 15 ML BOTTLE EACHEYE SCH ×4 (09:00→21:02)
[2017-01-09] MEDS: SERTRALINE HCL 25 MG TABLET PO SCH (09:00)
[2017-01-09] MEDS: HYDROGEN PEROXIDE 480 ML BOTTLE TP SCH ×2 (09:00→21:05)
[2017-01-09] MEDS: ZINC OXIDE 56.7 GM TUBE TP SCH ×2 (09:00→21:05)
[2017-01-09] MEDS: MINERAL OIL/PETROL OINT 396 GM JAR TP SCH ×2 (09:00→21:05)
[2017-01-09] MEDS: SITAGLIPTIN PHOSPHATE 25 MG TABLET PO SCH (09:00)
[2017-01-09] MEDS: VIT B CMPLX 3/FA/VIT C/BIOTIN 1 TAB TABLET PO SCH (09:00)
[2017-01-09] MEDS: HEPARIN SODIUM, PORCINE 5000 UNITS/1 ML VIAL SQ SCH ×2 (09:00→21:05)
[2017-01-09] MEDS: PROSOURCE / PROSTAT (PYXIS) 30 ML UDC PO SCH ×3 (09:00→16:58)
[2017-01-09] MEDS: GLYCOPYRROLATE 1 MG TABLET GT SCH ×2 (09:00→21:04)
--- NOTE | 2017-01-09 16:48 | NUR ---
Awake and alert pt refused trach change. Charge nurse and attending nurse aware. Addendum: 01/09/17 at 1649 by KVNG HEREDIA RT Amended: Links added.
[2017-01-09] MEDS: BISACODYL SUPP (10 MG) 10 MG/SUPP.RECT SUPP.RECT RC PRN (16:59)
[2017-01-09 20:09] VITALS: BP 152/91
[2017-01-09] MEDS: DOCUSATE SODIUM 100 MG CAPSULE PO SCH (21:04)
[2017-01-09] MEDS: ASCORBIC ACID 500 MG TABLET PO SCH (21:05)
[2017-01-09] MEDS: GABAPENTIN 100 MG CAPSULE PO SCH (21:05)
[2017-01-09] MEDS: TEMAZEPAM 15 MG CAPSULE PO SCH (21:06)
[2017-01-09] MEDS: MONTELUKAST SODIUM (10MG) 10 MG TABLET PO SCH (21:06)
[2017-01-09] MEDS: [UNRECOGNIZED DRUG - OTHER] TP SCH (22:00)
[2017-01-10] MEDS: IPRATROPIUM NEB FS 0.5 MG/2.5 ML AMPUL.NEB IH SCH ×4 (02:15→20:39)
[2017-01-10] MEDS: ALBUTEROL FS 2.5 MG/3 ML VIAL.NEB NEB SCH ×4 (02:15→20:39)
[2017-01-10] MEDS: BLOOD SUGAR DIAGNOSTIC 1 EACH STRIP VI SCH ×3 (06:33→16:58)
[2017-01-10] MEDS: PANTOPRAZOLE 40 MG TABLET.DR PO SCH (06:33)
[2017-01-10 08:00] VITALS: BP 147/67
[2017-01-10] MEDS: ACETYLCYSTEINE 20% ORAL SOLN 6,000 MG/30 ML VIAL INH SCH ×3 (08:08→17:31)
[2017-01-10] MEDS: BUDESONIDE RESPULE INH 0.5 MG/2 ML AMPUL.NEB IH SCH ×2 (08:38→21:06)
[2017-01-10] MEDS: PROSOURCE / PROSTAT (PYXIS) 30 ML UDC PO SCH ×3 (09:00→16:58)
[2017-01-10] MEDS: POLYVINYL ALCOHOL 15 ML BOTTLE EACHEYE SCH ×4 (09:31→21:06)
[2017-01-10] MEDS: GLYCOPYRROLATE 1 MG TABLET GT SCH ×2 (09:31→21:06)
[2017-01-10] MEDS: SITAGLIPTIN PHOSPHATE 25 MG TABLET PO SCH (09:31)
[2017-01-10] MEDS: VIT B CMPLX 3/FA/VIT C/BIOTIN 1 TAB TABLET PO SCH (09:31)
[2017-01-10] MEDS: predniSONE 10 MG TABLET PO SCH (09:32)
[2017-01-10] MEDS: SERTRALINE HCL 25 MG TABLET PO SCH (09:32)
[2017-01-10] MEDS: MINERAL OIL/PETROL OINT 396 GM JAR TP SCH ×2 (09:34→21:07)
[2017-01-10] MEDS: HEPARIN SODIUM, PORCINE 5000 UNITS/1 ML VIAL SQ SCH ×2 (09:34→21:07)
[2017-01-10] MEDS: ZINC OXIDE 56.7 GM TUBE TP SCH ×2 (09:35→21:07)
[2017-01-10] MEDS: HYDROGEN PEROXIDE 480 ML BOTTLE TP SCH ×2 (09:35→21:07)
[2017-01-10] MEDS: GUAIFENESIN/D-METHORPHAN HB 5 ML UDC PO PRN ×2 (10:08→16:58)
[2017-01-10] MEDS: INSULIN LISPRO/ASPART 100 UNIT/ML CARTRIDGE SQ PRN ×2 (12:23→17:07)
--- NOTE | 2017-01-10 15:10 | NUR ---
IDT meeting held. Family unable to attend. Current orders, new medications, treatment and plan of care reviewed. RNA stated that resident states he was told he can start walking by a doctor but resident does not initiate or want to sit in chair upon RNA's prompts. Per PT, to encourage resident to improve endurance by sitting up in chair. Resident is not a candidate for PT and will continue with RNA.
[2017-01-10] MEDS: ONDANSETRON 4 MG TAB.RAPDIS PO PRN (17:03)
[2017-01-10 20:00] VITALS: BP 139/99
[2017-01-10] MEDS: DOCUSATE SODIUM 100 MG CAPSULE PO SCH (21:06)
[2017-01-10] MEDS: ASCORBIC ACID 500 MG TABLET PO SCH (21:06)
[2017-01-10] MEDS: TEMAZEPAM 15 MG CAPSULE PO SCH (21:07)
[2017-01-10] MEDS: MONTELUKAST SODIUM (10MG) 10 MG TABLET PO SCH (21:07)
[2017-01-10] MEDS: [UNRECOGNIZED DRUG - OTHER] TP SCH (21:07)
[2017-01-10] MEDS: GABAPENTIN 100 MG CAPSULE PO SCH (21:07)
[2017-01-11] MEDS: ALBUTEROL FS 2.5 MG/3 ML VIAL.NEB NEB SCH ×4 (01:55→19:03)
[2017-01-11] MEDS: IPRATROPIUM NEB FS 0.5 MG/2.5 ML AMPUL.NEB IH SCH ×4 (01:55→19:03)
[2017-01-11] MEDS: PANTOPRAZOLE 40 MG TABLET.DR PO SCH (05:39)
[2017-01-11] MEDS: BLOOD SUGAR DIAGNOSTIC 1 EACH STRIP VI SCH ×3 (07:05→17:42)
[2017-01-11] MEDS: INSULIN LISPRO/ASPART 100 UNIT/ML CARTRIDGE SQ PRN ×2 (07:08→17:42)
[2017-01-11 07:52] VITALS: BP 137/100
[2017-01-11] MEDS: ACETYLCYSTEINE 20% ORAL SOLN 6,000 MG/30 ML VIAL INH SCH ×2 (08:01→16:02)
[2017-01-11] MEDS: BUDESONIDE RESPULE INH 0.5 MG/2 ML AMPUL.NEB IH SCH ×2 (08:17→21:14)
[2017-01-11] MEDS: VIT B CMPLX 3/FA/VIT C/BIOTIN 1 TAB TABLET PO SCH (08:23)
[2017-01-11] MEDS: GUAIFENESIN/D-METHORPHAN HB 5 ML UDC PO PRN ×2 (08:23→21:35)
[2017-01-11] MEDS: GLYCOPYRROLATE 1 MG TABLET GT SCH ×2 (08:23→21:31)
[2017-01-11] MEDS: HEPARIN SODIUM, PORCINE 5000 UNITS/1 ML VIAL SQ SCH ×2 (08:23→21:32)
[2017-01-11] MEDS: SITAGLIPTIN PHOSPHATE 25 MG TABLET PO SCH (08:23)
[2017-01-11] MEDS: PROSOURCE / PROSTAT (PYXIS) 30 ML UDC PO SCH ×3 (08:23→17:42)
[2017-01-11] MEDS: POLYVINYL ALCOHOL 15 ML BOTTLE EACHEYE SCH ×4 (08:23→21:31)
[2017-01-11] MEDS: SERTRALINE HCL 25 MG TABLET PO SCH (08:23)
[2017-01-11] MEDS: ZINC OXIDE 56.7 GM TUBE TP SCH ×2 (08:24→21:32)
[2017-01-11] MEDS: HYDROGEN PEROXIDE 480 ML BOTTLE TP SCH ×2 (08:24→21:32)
[2017-01-11] MEDS: MINERAL OIL/PETROL OINT 396 GM JAR TP SCH ×2 (08:24→21:32)
[2017-01-11 19:32] VITALS: BP 112/69
[2017-01-11] MEDS: ASCORBIC ACID 500 MG TABLET PO SCH (21:31)
[2017-01-11] MEDS: DOCUSATE SODIUM 100 MG CAPSULE PO SCH (21:31)
[2017-01-11] MEDS: MONTELUKAST SODIUM (10MG) 10 MG TABLET PO SCH (21:32)
[2017-01-11] MEDS: [UNRECOGNIZED DRUG - OTHER] TP SCH (21:32)
[2017-01-11] MEDS: GABAPENTIN 100 MG CAPSULE PO SCH (21:32)
[2017-01-11] MEDS: TEMAZEPAM 15 MG CAPSULE PO SCH (21:32)
[2017-01-12] MEDS: IPRATROPIUM NEB FS 0.5 MG/2.5 ML AMPUL.NEB IH SCH ×4 (02:32→19:23)
[2017-01-12] MEDS: ALBUTEROL FS 2.5 MG/3 ML VIAL.NEB NEB SCH ×4 (02:32→19:23)
[2017-01-12] MEDS: PANTOPRAZOLE 40 MG TABLET.DR PO SCH (05:38)
[2017-01-12] MEDS: INSULIN LISPRO/ASPART 100 UNIT/ML CARTRIDGE SQ PRN ×2 (06:42→12:18)
[2017-01-12] MEDS: BLOOD SUGAR DIAGNOSTIC 1 EACH STRIP VI SCH ×3 (06:42→17:39)
[2017-01-12] MEDS: ACETYLCYSTEINE 20% ORAL SOLN 6,000 MG/30 ML VIAL INH SCH ×2 (08:06→16:10)
[2017-01-12] MEDS: BUDESONIDE RESPULE INH 0.5 MG/2 ML AMPUL.NEB IH SCH ×2 (08:30→21:31)
[2017-01-12] MEDS: VIT B CMPLX 3/FA/VIT C/BIOTIN 1 TAB TABLET PO SCH (09:37)
[2017-01-12] MEDS: GLYCOPYRROLATE 1 MG TABLET GT SCH ×2 (09:37→21:12)
[2017-01-12] MEDS: SITAGLIPTIN PHOSPHATE 25 MG TABLET PO SCH (09:37)
[2017-01-12] MEDS: POLYVINYL ALCOHOL 15 ML BOTTLE EACHEYE SCH ×4 (09:37→21:12)
[2017-01-12] MEDS: predniSONE 10 MG TABLET PO SCH (09:38)
[2017-01-12] MEDS: PROSOURCE / PROSTAT (PYXIS) 30 ML UDC PO SCH ×3 (09:38→17:35)
[2017-01-12] MEDS: ZINC OXIDE 56.7 GM TUBE TP SCH ×2 (09:39→21:15)
[2017-01-12] MEDS: MINERAL OIL/PETROL OINT 396 GM JAR TP SCH ×2 (09:39→21:15)
[2017-01-12] MEDS: HYDROGEN PEROXIDE 480 ML BOTTLE TP SCH ×2 (09:39→21:15)
[2017-01-12] MEDS: SERTRALINE HCL 25 MG TABLET PO SCH (09:39)
[2017-01-12] MEDS: HEPARIN SODIUM, PORCINE 5000 UNITS/1 ML VIAL SQ SCH ×2 (09:42→21:15)
[2017-01-12 10:53] VITALS: BP 147/85
[2017-01-12] MEDS: GUAIFENESIN/D-METHORPHAN HB 5 ML UDC PO PRN ×2 (12:14→21:12)
--- NOTE | 2017-01-12 16:03 | NUR ---
RN NOTES PT REFUSED TRACH CARE DURING AM STATING "THEY JUST CHANGED IT IN THE MORNING".
[2017-01-12] MEDS: IPRATROPIUM NEB FS 0.5 MG/2.5 ML AMPUL.NEB NEB PRN (16:10)
[2017-01-12] MEDS: ALBUTEROL FS 2.5 MG/3 ML VIAL.NEB NEB PRN (16:10)
[2017-01-12 20:01] VITALS: BP 138/92
[2017-01-12] MEDS: DOCUSATE SODIUM 100 MG CAPSULE PO SCH (21:13)
[2017-01-12] MEDS: ASCORBIC ACID 500 MG TABLET PO SCH (21:14)
[2017-01-12] MEDS: GABAPENTIN 100 MG CAPSULE PO SCH (21:16)
[2017-01-12] MEDS: TEMAZEPAM 15 MG CAPSULE PO SCH (21:17)
[2017-01-12] MEDS: [UNRECOGNIZED DRUG - OTHER] TP SCH (21:17)
[2017-01-12] MEDS: MONTELUKAST SODIUM (10MG) 10 MG TABLET PO SCH (21:17)
[2017-01-13] MEDS: IPRATROPIUM NEB FS 0.5 MG/2.5 ML AMPUL.NEB IH SCH ×4 (01:01→19:30)
[2017-01-13] MEDS: ALBUTEROL FS 2.5 MG/3 ML VIAL.NEB NEB SCH ×4 (01:01→19:30)
[2017-01-13] MEDS: PANTOPRAZOLE 40 MG TABLET.DR PO SCH (06:33)
[2017-01-13] MEDS: BLOOD SUGAR DIAGNOSTIC 1 EACH STRIP VI SCH ×3 (06:34→17:30)
[2017-01-13 07:57] VITALS: BP 139/89
[2017-01-13] MEDS: BUDESONIDE RESPULE INH 0.5 MG/2 ML AMPUL.NEB IH SCH ×2 (08:10→20:33)
[2017-01-13] MEDS: ACETYLCYSTEINE 20% ORAL SOLN 6,000 MG/30 ML VIAL INH SCH ×2 (08:10→16:01)
[2017-01-13] MEDS: VIT B CMPLX 3/FA/VIT C/BIOTIN 1 TAB TABLET PO SCH (09:00)
[2017-01-13] MEDS: MINERAL OIL/PETROL OINT 396 GM JAR TP SCH ×2 (09:00→21:10)
[2017-01-13] MEDS: SITAGLIPTIN PHOSPHATE 25 MG TABLET PO SCH (09:00)
[2017-01-13] MEDS: SERTRALINE HCL 25 MG TABLET PO SCH (09:00)
[2017-01-13] MEDS: HYDROGEN PEROXIDE 480 ML BOTTLE TP SCH ×2 (09:00→21:10)
[2017-01-13] MEDS: HEPARIN SODIUM, PORCINE 5000 UNITS/1 ML VIAL SQ SCH ×2 (09:00→21:06)
[2017-01-13] MEDS: GLYCOPYRROLATE 1 MG TABLET GT SCH ×2 (09:00→21:09)
[2017-01-13] MEDS: POLYVINYL ALCOHOL 15 ML BOTTLE EACHEYE SCH ×4 (09:00→21:09)
[2017-01-13] MEDS: PROSOURCE / PROSTAT (PYXIS) 30 ML UDC PO SCH ×3 (09:00→17:00)
[2017-01-13] MEDS: ZINC OXIDE 56.7 GM TUBE TP SCH ×2 (09:00→21:10)
[2017-01-13] MEDS: INSULIN LISPRO/ASPART 100 UNIT/ML CARTRIDGE SQ PRN ×2 (12:05→19:04)
--- NOTE | 2017-01-13 13:37 | NUR ---
SEEN AND EXAMINED BY ARNOL NOLASCO WITH NO NEW ORDERS AT THIS TIME.
[2017-01-13 19:43] VITALS: BP 146/98
[2017-01-13] MEDS: GUAIFENESIN/D-METHORPHAN HB 5 ML UDC PO PRN (21:05)
[2017-01-13] MEDS: ATARAX 25 MG PO PRN (21:05)
[2017-01-13] MEDS: DOCUSATE SODIUM 100 MG CAPSULE PO SCH (21:06)
[2017-01-13] MEDS: ASCORBIC ACID 500 MG TABLET PO SCH (21:07)
[2017-01-13] MEDS: MONTELUKAST SODIUM (10MG) 10 MG TABLET PO SCH (21:10)
[2017-01-13] MEDS: GABAPENTIN 100 MG CAPSULE PO SCH (21:10)
[2017-01-13] MEDS: [UNRECOGNIZED DRUG - OTHER] TP SCH (21:10)
[2017-01-13] MEDS: TEMAZEPAM 15 MG CAPSULE PO SCH (21:10)
[2017-01-14] MEDS: IPRATROPIUM NEB FS 0.5 MG/2.5 ML AMPUL.NEB IH SCH ×4 (02:16→20:02)
[2017-01-14] MEDS: ALBUTEROL FS 2.5 MG/3 ML VIAL.NEB NEB SCH ×4 (02:16→20:02)
[2017-01-14] MEDS: PANTOPRAZOLE 40 MG TABLET.DR PO SCH (06:28)
[2017-01-14] MEDS: BLOOD SUGAR DIAGNOSTIC 1 EACH STRIP VI SCH ×3 (06:31→17:46)
[2017-01-14] MEDS: ACETYLCYSTEINE 20% ORAL SOLN 6,000 MG/30 ML VIAL INH SCH ×2 (08:05→16:04)
[2017-01-14] MEDS: BUDESONIDE RESPULE INH 0.5 MG/2 ML AMPUL.NEB IH SCH ×2 (08:05→20:16)
[2017-01-14] MEDS: SITAGLIPTIN PHOSPHATE 25 MG TABLET PO SCH (08:14)
[2017-01-14] MEDS: predniSONE 10 MG TABLET PO SCH (08:14)
[2017-01-14] MEDS: GLYCOPYRROLATE 1 MG TABLET GT SCH ×2 (08:14→21:12)
[2017-01-14] MEDS: SERTRALINE HCL 25 MG TABLET PO SCH (08:14)
[2017-01-14] MEDS: VIT B CMPLX 3/FA/VIT C/BIOTIN 1 TAB TABLET PO SCH (08:14)
[2017-01-14] MEDS: POLYVINYL ALCOHOL 15 ML BOTTLE EACHEYE SCH ×4 (08:14→21:10)
[2017-01-14] MEDS: PROSOURCE / PROSTAT (PYXIS) 30 ML UDC PO SCH ×3 (08:14→17:49)
[2017-01-14] MEDS: HEPARIN SODIUM, PORCINE 5000 UNITS/1 ML VIAL SQ SCH ×2 (08:15→21:13)
[2017-01-14] MEDS: ZINC OXIDE 56.7 GM TUBE TP SCH ×2 (09:00→21:34)
[2017-01-14] MEDS: HYDROGEN PEROXIDE 480 ML BOTTLE TP SCH ×2 (09:00→21:34)
[2017-01-14] MEDS: MINERAL OIL/PETROL OINT 396 GM JAR TP SCH ×2 (09:00→21:34)
--- NOTE | 2017-01-14 09:30 | NUR ---
Seen by Dr. Gardner. Notified him that pt was complaining of SOB the other night. Dr. Gardner examined him. Received order to do CXR on 01/15/17.
--- NOTE | 2017-01-14 12:42 | NUR ---
SWINE EXTENSION FIELD SPECIALIST Radha Petty said to ask Dr. Prieto to change pt's dry weight so the dialysis nurses will pull out more fluids to help with pt's secretions and complaint of SOB. Notified Dr. Prieto. She said to call dialysis center and tell them that she said to pull out more fluids. Called [facility] and notified
[2017-01-14 13:06] VITALS: BP 146/98
[2017-01-14] MEDS: INSULIN LISPRO/ASPART 100 UNIT/ML CARTRIDGE SQ PRN (17:48)
[2017-01-14 20:40] VITALS: BP 140/82
[2017-01-14] MEDS: DOCUSATE SODIUM 100 MG CAPSULE PO SCH (21:12)
[2017-01-14] MEDS: ATARAX 25 MG PO PRN (21:14)
[2017-01-14] MEDS: GUAIFENESIN/D-METHORPHAN HB 5 ML UDC PO PRN (21:14)
[2017-01-14] MEDS: ASCORBIC ACID 500 MG TABLET PO SCH (21:14)
[2017-01-14] MEDS: MONTELUKAST SODIUM (10MG) 10 MG TABLET PO SCH (21:34)
[2017-01-14] MEDS: GABAPENTIN 100 MG CAPSULE PO SCH (21:34)
[2017-01-14] MEDS: TEMAZEPAM 15 MG CAPSULE PO SCH (21:34)
[2017-01-14] MEDS: [UNRECOGNIZED DRUG - OTHER] TP SCH (21:35)
[2017-01-15] MEDS: IPRATROPIUM NEB FS 0.5 MG/2.5 ML AMPUL.NEB IH SCH ×5 (02:05→20:12)
[2017-01-15] MEDS: ALBUTEROL FS 2.5 MG/3 ML VIAL.NEB NEB SCH ×5 (02:05→20:12)
[2017-01-15] MEDS: PANTOPRAZOLE 40 MG TABLET.DR PO SCH (06:31)
[2017-01-15] MEDS: BLOOD SUGAR DIAGNOSTIC 1 EACH STRIP VI SCH ×3 (06:37→17:09)
[2017-01-15 07:45] VITALS: BP 144/86
[2017-01-15] MEDS: ACETYLCYSTEINE 20% ORAL SOLN 6,000 MG/30 ML VIAL INH SCH ×2 (08:04→16:20)
[2017-01-15] MEDS: BUDESONIDE RESPULE INH 0.5 MG/2 ML AMPUL.NEB IH SCH ×2 (08:34→20:12)
[2017-01-15] MEDS: PROSOURCE / PROSTAT (PYXIS) 30 ML UDC PO SCH ×3 (09:00→16:56)
[2017-01-15] MEDS: VIT B CMPLX 3/FA/VIT C/BIOTIN 1 TAB TABLET PO SCH (09:00)
[2017-01-15] MEDS: NAPROXEN 500 MG TABLET PO PRN ×2 (09:00→22:47)
[2017-01-15] MEDS: SITAGLIPTIN PHOSPHATE 25 MG TABLET PO SCH (09:00)
[2017-01-15] MEDS: SERTRALINE HCL 25 MG TABLET PO SCH (09:00)
[2017-01-15] MEDS: MINERAL OIL/PETROL OINT 396 GM JAR TP SCH ×2 (09:00→21:17)
[2017-01-15] MEDS: GUAIFENESIN/D-METHORPHAN HB 5 ML UDC PO PRN ×2 (09:00→21:18)
[2017-01-15] MEDS: HYDROGEN PEROXIDE 480 ML BOTTLE TP SCH ×2 (09:00→21:17)
[2017-01-15] MEDS: HEPARIN SODIUM, PORCINE 5000 UNITS/1 ML VIAL SQ SCH ×2 (09:00→21:17)
[2017-01-15] MEDS: GLYCOPYRROLATE 1 MG TABLET GT SCH ×2 (09:00→21:16)
[2017-01-15] MEDS: POLYVINYL ALCOHOL 15 ML BOTTLE EACHEYE SCH ×4 (09:00→21:16)
[2017-01-15] MEDS: ZINC OXIDE 56.7 GM TUBE TP SCH ×2 (09:00→21:17)
[2017-01-15] MEDS: INSULIN LISPRO/ASPART 100 UNIT/ML CARTRIDGE SQ PRN (13:58)
--- NOTE | 2017-01-15 15:20 | NUR ---
SEEN AND EXAMINED BY ARNOL NOLASCO WITH NO NEW ORDERS AT THIS TIME.
[2017-01-15] MEDS: IPRATROPIUM NEB FS 0.5 MG/2.5 ML AMPUL.NEB NEB PRN (16:58)
[2017-01-15] MEDS: ALBUTEROL FS 2.5 MG/3 ML VIAL.NEB NEB PRN (16:58)
[2017-01-15] MEDS: DOCUSATE SODIUM 100 MG CAPSULE PO SCH (21:16)
[2017-01-15] MEDS: ASCORBIC ACID 500 MG TABLET PO SCH (21:16)
[2017-01-15] MEDS: GABAPENTIN 100 MG CAPSULE PO SCH (21:17)
[2017-01-15] MEDS: [UNRECOGNIZED DRUG - OTHER] TP SCH (21:17)
[2017-01-15] MEDS: TEMAZEPAM 15 MG CAPSULE PO SCH (21:17)
[2017-01-15] MEDS: MONTELUKAST SODIUM (10MG) 10 MG TABLET PO SCH (21:17)
[2017-01-16] MEDS: ALBUTEROL FS 2.5 MG/3 ML VIAL.NEB NEB SCH ×4 (01:40→19:22)
[2017-01-16] MEDS: IPRATROPIUM NEB FS 0.5 MG/2.5 ML AMPUL.NEB IH SCH ×4 (01:40→19:22)
[2017-01-16] MEDS: PANTOPRAZOLE 40 MG TABLET.DR PO SCH (05:59)
[2017-01-16] MEDS: BLOOD SUGAR DIAGNOSTIC 1 EACH STRIP VI SCH ×3 (06:46→18:14)
[2017-01-16] MEDS: INSULIN LISPRO/ASPART 100 UNIT/ML CARTRIDGE SQ PRN ×3 (06:47→18:15)
[2017-01-16 07:55] VITALS: BP 142/89
[2017-01-16] MEDS: ACETYLCYSTEINE 20% ORAL SOLN 6,000 MG/30 ML VIAL INH SCH ×2 (08:03→16:22)
[2017-01-16] MEDS: BUDESONIDE RESPULE INH 0.5 MG/2 ML AMPUL.NEB IH SCH ×2 (08:29→20:06)
[2017-01-16] MEDS: GLYCOPYRROLATE 1 MG TABLET GT SCH ×2 (08:30→21:27)
[2017-01-16] MEDS: VIT B CMPLX 3/FA/VIT C/BIOTIN 1 TAB TABLET PO SCH (08:30)
[2017-01-16] MEDS: POLYVINYL ALCOHOL 15 ML BOTTLE EACHEYE SCH ×4 (08:30→21:26)
[2017-01-16] MEDS: SITAGLIPTIN PHOSPHATE 25 MG TABLET PO SCH (08:30)
[2017-01-16] MEDS: predniSONE 10 MG TABLET PO SCH (08:31)
[2017-01-16] MEDS: PROSOURCE / PROSTAT (PYXIS) 30 ML UDC PO SCH ×3 (08:31→17:00)
[2017-01-16] MEDS: SERTRALINE HCL 25 MG TABLET PO SCH (08:31)
[2017-01-16] MEDS: HEPARIN SODIUM, PORCINE 5000 UNITS/1 ML VIAL SQ SCH ×2 (08:32→21:28)
[2017-01-16] MEDS: MINERAL OIL/PETROL OINT 396 GM JAR TP SCH ×2 (08:36→21:30)
[2017-01-16] MEDS: HYDROGEN PEROXIDE 480 ML BOTTLE TP SCH ×2 (08:36→21:30)
[2017-01-16] MEDS: ZINC OXIDE 56.7 GM TUBE TP SCH ×2 (08:36→21:30)
[2017-01-16] MEDS: GUAIFENESIN/D-METHORPHAN HB 5 ML UDC PO PRN ×2 (08:46→21:31)
[2017-01-16] MEDS: NAPROXEN 500 MG TABLET PO PRN (14:57)
[2017-01-16] MEDS: MAG HYDROX/AL HYDROX/SIMETH 30 ML UDC PO PRN (15:41)
[2017-01-16 19:59] VITALS: BP 118/62
[2017-01-16] MEDS: DOCUSATE SODIUM 100 MG CAPSULE PO SCH (21:27)
[2017-01-16] MEDS: ASCORBIC ACID 500 MG TABLET PO SCH (21:30)
[2017-01-16] MEDS: GABAPENTIN 100 MG CAPSULE PO SCH (21:31)
[2017-01-16] MEDS: MONTELUKAST SODIUM (10MG) 10 MG TABLET PO SCH (21:31)
[2017-01-16] MEDS: [UNRECOGNIZED DRUG - OTHER] TP SCH (21:31)
[2017-01-16] MEDS: ATARAX 25 MG PO PRN (21:31)
[2017-01-16] MEDS: TEMAZEPAM 15 MG CAPSULE PO SCH (21:31)
[2017-01-17] MEDS: IPRATROPIUM NEB FS 0.5 MG/2.5 ML AMPUL.NEB IH SCH ×3 (01:18→20:09)
[2017-01-17] MEDS: ALBUTEROL FS 2.5 MG/3 ML VIAL.NEB NEB SCH ×3 (01:18→20:09)
[2017-01-17 07:11] VITALS: BP 129/86
[2017-01-17] MEDS: BUDESONIDE RESPULE INH 0.5 MG/2 ML AMPUL.NEB IH SCH ×2 (09:30→21:09)
[2017-01-17] MEDS: HYDROGEN PEROXIDE 480 ML BOTTLE TP SCH ×2 (11:00→21:35)
[2017-01-17] MEDS: ZINC OXIDE 56.7 GM TUBE TP SCH ×2 (11:00→21:35)
[2017-01-17] MEDS: BLOOD SUGAR DIAGNOSTIC 1 EACH STRIP VI SCH ×2 (12:00→17:41)
[2017-01-17] MEDS: INSULIN LISPRO/ASPART 100 UNIT/ML CARTRIDGE SQ PRN (13:02)
[2017-01-17] MEDS: POLYVINYL ALCOHOL 15 ML BOTTLE EACHEYE SCH ×3 (13:03→21:34)
[2017-01-17] MEDS: PROSOURCE / PROSTAT (PYXIS) 30 ML UDC PO SCH ×2 (13:03→17:41)
[2017-01-17] MEDS: ACETYLCYSTEINE 20% ORAL SOLN 6,000 MG/30 ML VIAL INH SCH (16:08)
[2017-01-17 19:25] VITALS: BP 137/92
[2017-01-17] MEDS: GLYCOPYRROLATE 1 MG TABLET GT SCH (21:33)
[2017-01-17] MEDS: ASCORBIC ACID 500 MG TABLET PO SCH (21:34)
[2017-01-17] MEDS: DOCUSATE SODIUM 100 MG CAPSULE PO SCH (21:34)
[2017-01-17] MEDS: MINERAL OIL/PETROL OINT 396 GM JAR TP SCH (21:34)
[2017-01-17] MEDS: HEPARIN SODIUM, PORCINE 5000 UNITS/1 ML VIAL SQ SCH (21:34)
[2017-01-17] MEDS: MONTELUKAST SODIUM (10MG) 10 MG TABLET PO SCH (21:35)
[2017-01-17] MEDS: TEMAZEPAM 15 MG CAPSULE PO SCH (21:35)
[2017-01-17] MEDS: GABAPENTIN 100 MG CAPSULE PO SCH (21:35)
[2017-01-17] MEDS: [UNRECOGNIZED DRUG - OTHER] TP SCH (21:36)
[2017-01-17] MEDS: GUAIFENESIN/D-METHORPHAN HB 5 ML UDC PO PRN (21:38)
[2017-01-17] MEDS: NAPROXEN 500 MG TABLET PO PRN (22:50)
[2017-01-18] MEDS: IPRATROPIUM NEB FS 0.5 MG/2.5 ML AMPUL.NEB IH SCH ×4 (00:53→19:43)
[2017-01-18] MEDS: ALBUTEROL FS 2.5 MG/3 ML VIAL.NEB NEB SCH ×4 (00:53→19:43)
[2017-01-18] MEDS: PANTOPRAZOLE 40 MG TABLET.DR PO SCH (06:06)
[2017-01-18] MEDS: INSULIN LISPRO/ASPART 100 UNIT/ML CARTRIDGE SQ PRN (06:50)
[2017-01-18] MEDS: BLOOD SUGAR DIAGNOSTIC 1 EACH STRIP VI SCH ×3 (06:50→17:36)
[2017-01-18] MEDS: ACETYLCYSTEINE 20% ORAL SOLN 6,000 MG/30 ML VIAL INH SCH ×2 (08:08→17:00)
[2017-01-18] MEDS: BUDESONIDE RESPULE INH 0.5 MG/2 ML AMPUL.NEB IH SCH ×2 (08:08→19:43)
[2017-01-18] MEDS: SITAGLIPTIN PHOSPHATE 25 MG TABLET PO SCH (08:09)
[2017-01-18] MEDS: VIT B CMPLX 3/FA/VIT C/BIOTIN 1 TAB TABLET PO SCH (08:09)
[2017-01-18 08:10] VITALS: BP 133/93
[2017-01-18] MEDS: SERTRALINE HCL 25 MG TABLET PO SCH (08:10)
[2017-01-18] MEDS: GLYCOPYRROLATE 1 MG TABLET GT SCH ×2 (08:10→21:51)
[2017-01-18] MEDS: POLYVINYL ALCOHOL 15 ML BOTTLE EACHEYE SCH ×4 (08:10→21:51)
[2017-01-18] MEDS: PROSOURCE / PROSTAT (PYXIS) 30 ML UDC PO SCH ×3 (08:12→17:36)
[2017-01-18] MEDS: predniSONE 10 MG TABLET PO SCH (08:12)
[2017-01-18] MEDS: ZINC OXIDE 56.7 GM TUBE TP SCH ×2 (08:14→21:52)
[2017-01-18] MEDS: MINERAL OIL/PETROL OINT 396 GM JAR TP SCH ×2 (08:14→21:52)
[2017-01-18] MEDS: HEPARIN SODIUM, PORCINE 5000 UNITS/1 ML VIAL SQ SCH ×2 (08:46→21:52)
[2017-01-18] MEDS: HYDROGEN PEROXIDE 480 ML BOTTLE TP SCH ×2 (14:00→21:52)
[2017-01-18 19:52] VITALS: BP 142/96
[2017-01-18] MEDS: ASCORBIC ACID 500 MG TABLET PO SCH (21:51)
[2017-01-18] MEDS: DOCUSATE SODIUM 100 MG CAPSULE PO SCH (21:51)
[2017-01-18] MEDS: MONTELUKAST SODIUM (10MG) 10 MG TABLET PO SCH (21:52)
[2017-01-18] MEDS: TEMAZEPAM 15 MG CAPSULE PO SCH (21:52)
[2017-01-18] MEDS: GABAPENTIN 100 MG CAPSULE PO SCH (21:52)
[2017-01-18] MEDS: [UNRECOGNIZED DRUG - OTHER] TP SCH (21:53)
[2017-01-18] MEDS: GUAIFENESIN/D-METHORPHAN HB 5 ML UDC PO PRN (21:53)
[2017-01-19] MEDS: ALBUTEROL FS 2.5 MG/3 ML VIAL.NEB NEB SCH ×4 (01:03→19:36)
[2017-01-19] MEDS: IPRATROPIUM NEB FS 0.5 MG/2.5 ML AMPUL.NEB IH SCH ×4 (01:03→19:36)
[2017-01-19] MEDS: PANTOPRAZOLE 40 MG TABLET.DR PO SCH (06:16)
[2017-01-19] MEDS: INSULIN LISPRO/ASPART 100 UNIT/ML CARTRIDGE SQ PRN ×3 (07:00→19:11)
[2017-01-19] MEDS: BLOOD SUGAR DIAGNOSTIC 1 EACH STRIP VI SCH ×3 (07:00→17:30)
[2017-01-19 07:49] VITALS: BP 137/74
[2017-01-19] MEDS: BUDESONIDE RESPULE INH 0.5 MG/2 ML AMPUL.NEB IH SCH ×2 (08:07→21:42)
[2017-01-19] MEDS: ACETYLCYSTEINE 20% ORAL SOLN 6,000 MG/30 ML VIAL INH SCH ×2 (08:07→16:01)
[2017-01-19] MEDS: VIT B CMPLX 3/FA/VIT C/BIOTIN 1 TAB TABLET PO SCH (08:35)
[2017-01-19] MEDS: PROSOURCE / PROSTAT (PYXIS) 30 ML UDC PO SCH ×3 (08:35→17:04)
[2017-01-19] MEDS: POLYVINYL ALCOHOL 15 ML BOTTLE EACHEYE SCH ×4 (08:35→20:54)
[2017-01-19] MEDS: SERTRALINE HCL 25 MG TABLET PO SCH (08:35)
[2017-01-19] MEDS: GLYCOPYRROLATE 1 MG TABLET GT SCH ×2 (08:35→20:55)
[2017-01-19] MEDS: SITAGLIPTIN PHOSPHATE 25 MG TABLET PO SCH (08:35)
[2017-01-19] MEDS: MINERAL OIL/PETROL OINT 396 GM JAR TP SCH ×2 (08:39→20:56)
[2017-01-19] MEDS: HEPARIN SODIUM, PORCINE 5000 UNITS/1 ML VIAL SQ SCH ×2 (08:39→20:56)
[2017-01-19] MEDS: ZINC OXIDE 56.7 GM TUBE TP SCH ×2 (08:40→20:57)
[2017-01-19] MEDS: HYDROGEN PEROXIDE 480 ML BOTTLE TP SCH ×2 (08:40→20:56)
[2017-01-19] MEDS: GUAIFENESIN/D-METHORPHAN HB 5 ML UDC PO PRN ×2 (13:24→20:53)
[2017-01-19 20:00] VITALS: BP 158/97
[2017-01-19] MEDS: DOCUSATE SODIUM 100 MG CAPSULE PO SCH (20:54)
[2017-01-19] MEDS: ASCORBIC ACID 500 MG TABLET PO SCH (20:56)
[2017-01-19] MEDS: GABAPENTIN 100 MG CAPSULE PO SCH (21:14)
[2017-01-19] MEDS: [UNRECOGNIZED DRUG - OTHER] TP SCH (21:14)
[2017-01-19] MEDS: MONTELUKAST SODIUM (10MG) 10 MG TABLET PO SCH (21:14)
[2017-01-19] MEDS: TEMAZEPAM 15 MG CAPSULE PO SCH (21:14)
[2017-01-20] MEDS: ALBUTEROL FS 2.5 MG/3 ML VIAL.NEB NEB SCH ×4 (01:54→20:28)
[2017-01-20] MEDS: IPRATROPIUM NEB FS 0.5 MG/2.5 ML AMPUL.NEB IH SCH ×4 (01:54→20:28)
[2017-01-20] MEDS: BLOOD SUGAR DIAGNOSTIC 1 EACH STRIP VI SCH ×3 (06:24→17:30)
[2017-01-20] MEDS: PANTOPRAZOLE 40 MG TABLET.DR PO SCH (06:24)
[2017-01-20] MEDS: ACETYLCYSTEINE 20% ORAL SOLN 6,000 MG/30 ML VIAL INH SCH ×2 (08:05→16:10)
[2017-01-20 08:07] VITALS: BP 130/80
[2017-01-20] MEDS: SITAGLIPTIN PHOSPHATE 25 MG TABLET PO SCH (08:19)
[2017-01-20] MEDS: POLYVINYL ALCOHOL 15 ML BOTTLE EACHEYE SCH ×4 (08:19→21:14)
[2017-01-20] MEDS: VIT B CMPLX 3/FA/VIT C/BIOTIN 1 TAB TABLET PO SCH (08:19)
[2017-01-20] MEDS: predniSONE 10 MG TABLET PO SCH (08:19)
[2017-01-20] MEDS: PROSOURCE / PROSTAT (PYXIS) 30 ML UDC PO SCH ×3 (08:19→16:57)
[2017-01-20] MEDS: GLYCOPYRROLATE 1 MG TABLET GT SCH ×2 (08:19→21:15)
[2017-01-20] MEDS: SERTRALINE HCL 25 MG TABLET PO SCH (08:19)
[2017-01-20] MEDS: ZINC OXIDE 56.7 GM TUBE TP SCH ×2 (08:22→21:18)
[2017-01-20] MEDS: HYDROGEN PEROXIDE 480 ML BOTTLE TP SCH ×2 (08:22→21:18)
[2017-01-20] MEDS: MINERAL OIL/PETROL OINT 396 GM JAR TP SCH ×2 (08:22→21:17)
[2017-01-20] MEDS: HEPARIN SODIUM, PORCINE 5000 UNITS/1 ML VIAL SQ SCH ×2 (08:22→21:17)
[2017-01-20] MEDS: BUDESONIDE RESPULE INH 0.5 MG/2 ML AMPUL.NEB IH SCH ×2 (08:41→20:29)
[2017-01-20] MEDS: GUAIFENESIN/D-METHORPHAN HB 5 ML UDC PO PRN ×2 (12:03→21:13)
[2017-01-20] MEDS: INSULIN LISPRO/ASPART 100 UNIT/ML CARTRIDGE SQ PRN ×2 (12:22→19:11)
[2017-01-20 19:46] VITALS: BP 151/90
[2017-01-20] MEDS: DOCUSATE SODIUM 100 MG CAPSULE PO SCH (21:14)
[2017-01-20] MEDS: ASCORBIC ACID 500 MG TABLET PO SCH (21:15)
[2017-01-20] MEDS: ATARAX 25 MG PO PRN (21:18)
[2017-01-20] MEDS: TEMAZEPAM 15 MG CAPSULE PO SCH (21:18)
[2017-01-20] MEDS: [UNRECOGNIZED DRUG - OTHER] TP SCH (21:18)
[2017-01-20] MEDS: MONTELUKAST SODIUM (10MG) 10 MG TABLET PO SCH (21:18)
[2017-01-20] MEDS: GABAPENTIN 100 MG CAPSULE PO SCH (21:18)
[2017-01-21] MEDS: IPRATROPIUM NEB FS 0.5 MG/2.5 ML AMPUL.NEB IH SCH ×4 (02:25→19:37)
[2017-01-21] MEDS: ALBUTEROL FS 2.5 MG/3 ML VIAL.NEB NEB SCH ×4 (02:25→19:37)
[2017-01-21] MEDS: PANTOPRAZOLE 40 MG TABLET.DR PO SCH (06:27)
[2017-01-21] MEDS: BLOOD SUGAR DIAGNOSTIC 1 EACH STRIP VI SCH ×3 (06:30→17:30)
[2017-01-21] MEDS: ACETYLCYSTEINE 20% ORAL SOLN 6,000 MG/30 ML VIAL INH SCH ×2 (08:02→17:35)
[2017-01-21] MEDS: BUDESONIDE RESPULE INH 0.5 MG/2 ML AMPUL.NEB IH SCH ×2 (08:02→19:37)
[2017-01-21] MEDS: POLYVINYL ALCOHOL 15 ML BOTTLE EACHEYE SCH ×4 (08:47→21:09)
[2017-01-21] MEDS: VIT B CMPLX 3/FA/VIT C/BIOTIN 1 TAB TABLET PO SCH (08:47)
[2017-01-21] MEDS: PROSOURCE / PROSTAT (PYXIS) 30 ML UDC PO SCH ×3 (08:47→17:00)
[2017-01-21] MEDS: GLYCOPYRROLATE 1 MG TABLET GT SCH ×2 (08:47→21:09)
[2017-01-21] MEDS: SITAGLIPTIN PHOSPHATE 25 MG TABLET PO SCH (08:47)
[2017-01-21] MEDS: MINERAL OIL/PETROL OINT 396 GM JAR TP SCH ×2 (08:48→21:12)
[2017-01-21] MEDS: HEPARIN SODIUM, PORCINE 5000 UNITS/1 ML VIAL SQ SCH ×2 (08:48→21:12)
[2017-01-21] MEDS: SERTRALINE HCL 25 MG TABLET PO SCH (08:48)
[2017-01-21] MEDS: ZINC OXIDE 56.7 GM TUBE TP SCH ×2 (09:00→21:13)
[2017-01-21] MEDS: HYDROGEN PEROXIDE 480 ML BOTTLE TP SCH ×2 (09:00→21:13)
[2017-01-21 12:55] VITALS: BP 126/80
[2017-01-21] MEDS: IPRATROPIUM NEB FS 0.5 MG/2.5 ML AMPUL.NEB NEB PRN (17:35)
[2017-01-21] MEDS: ALBUTEROL FS 2.5 MG/3 ML VIAL.NEB NEB PRN (17:35)
[2017-01-21 19:54] VITALS: BP 134/85
[2017-01-21 19:56] VITALS: BP 134/85
[2017-01-21] MEDS: ATARAX 25 MG PO PRN (21:10)
[2017-01-21] MEDS: ASCORBIC ACID 500 MG TABLET PO SCH (21:10)
[2017-01-21] MEDS: DOCUSATE SODIUM 100 MG CAPSULE PO SCH (21:10)
[2017-01-21] MEDS: GUAIFENESIN/D-METHORPHAN HB 5 ML UDC PO PRN (21:10)
[2017-01-21] MEDS: GABAPENTIN 100 MG CAPSULE PO SCH (21:13)
[2017-01-21] MEDS: [UNRECOGNIZED DRUG - OTHER] TP SCH (21:13)
[2017-01-21] MEDS: MONTELUKAST SODIUM (10MG) 10 MG TABLET PO SCH (21:13)
[2017-01-21] MEDS: TEMAZEPAM 15 MG CAPSULE PO SCH (21:13)
[2017-01-22] MEDS: ALBUTEROL FS 2.5 MG/3 ML VIAL.NEB NEB SCH ×4 (01:25→19:59)
[2017-01-22] MEDS: IPRATROPIUM NEB FS 0.5 MG/2.5 ML AMPUL.NEB IH SCH ×4 (01:25→19:59)
[2017-01-22] MEDS: PANTOPRAZOLE 40 MG TABLET.DR PO SCH (06:24)
[2017-01-22] MEDS: BLOOD SUGAR DIAGNOSTIC 1 EACH STRIP VI SCH ×3 (06:30→18:17)
[2017-01-22] MEDS: ACETYLCYSTEINE 20% ORAL SOLN 6,000 MG/30 ML VIAL INH SCH ×2 (08:00→16:17)
[2017-01-22 08:03] VITALS: BP 121/76
[2017-01-22] MEDS: BUDESONIDE RESPULE INH 0.5 MG/2 ML AMPUL.NEB IH SCH ×2 (08:28→20:40)
[2017-01-22] MEDS: SITAGLIPTIN PHOSPHATE 25 MG TABLET PO SCH (08:41)
[2017-01-22] MEDS: VIT B CMPLX 3/FA/VIT C/BIOTIN 1 TAB TABLET PO SCH (08:41)
[2017-01-22] MEDS: HEPARIN SODIUM, PORCINE 5000 UNITS/1 ML VIAL SQ SCH ×2 (08:41→21:30)
[2017-01-22] MEDS: PROSOURCE / PROSTAT (PYXIS) 30 ML UDC PO SCH ×3 (08:41→17:00)
[2017-01-22] MEDS: SERTRALINE HCL 25 MG TABLET PO SCH (08:41)
[2017-01-22] MEDS: ZINC OXIDE 56.7 GM TUBE TP SCH ×2 (08:41→21:30)
[2017-01-22] MEDS: GLYCOPYRROLATE 1 MG TABLET GT SCH ×2 (08:41→21:30)
[2017-01-22] MEDS: predniSONE 10 MG TABLET PO SCH (08:41)
[2017-01-22] MEDS: POLYVINYL ALCOHOL 15 ML BOTTLE EACHEYE SCH ×4 (08:41→21:30)
[2017-01-22] MEDS: MINERAL OIL/PETROL OINT 396 GM JAR TP SCH ×2 (08:41→21:30)
[2017-01-22] MEDS: HYDROGEN PEROXIDE 480 ML BOTTLE TP SCH ×2 (08:41→21:30)
[2017-01-22] MEDS: GUAIFENESIN/D-METHORPHAN HB 5 ML UDC PO PRN ×2 (09:00→22:31)
[2017-01-22] MEDS: INSULIN LISPRO/ASPART 100 UNIT/ML CARTRIDGE SQ PRN ×2 (13:45→18:18)
[2017-01-22] MEDS: IPRATROPIUM NEB FS 0.5 MG/2.5 ML AMPUL.NEB NEB PRN (16:17)
[2017-01-22] MEDS: ALBUTEROL FS 2.5 MG/3 ML VIAL.NEB NEB PRN (16:18)
[2017-01-22] MEDS: DOCUSATE SODIUM 100 MG CAPSULE PO SCH (21:30)
[2017-01-22] MEDS: ASCORBIC ACID 500 MG TABLET PO SCH (21:30)
[2017-01-22 22:07] VITALS: BP 120/79
[2017-01-22] MEDS: TEMAZEPAM 15 MG CAPSULE PO SCH (22:28)
[2017-01-22] MEDS: GABAPENTIN 100 MG CAPSULE PO SCH (22:28)
[2017-01-22] MEDS: MONTELUKAST SODIUM (10MG) 10 MG TABLET PO SCH (22:28)
[2017-01-22] MEDS: [UNRECOGNIZED DRUG - OTHER] TP SCH (22:29)
[2017-01-22] MEDS: NAPROXEN 500 MG TABLET PO PRN (22:29)
[2017-01-23] MEDS: IPRATROPIUM NEB FS 0.5 MG/2.5 ML AMPUL.NEB IH SCH ×4 (00:53→20:15)
[2017-01-23] MEDS: ALBUTEROL FS 2.5 MG/3 ML VIAL.NEB NEB SCH ×4 (00:53→20:15)
[2017-01-23] MEDS: PANTOPRAZOLE 40 MG TABLET.DR PO SCH (06:14)
[2017-01-23] MEDS: BLOOD SUGAR DIAGNOSTIC 1 EACH STRIP VI SCH ×3 (07:15→17:32)
[2017-01-23] MEDS: INSULIN LISPRO/ASPART 100 UNIT/ML CARTRIDGE SQ PRN ×2 (07:15→17:32)
[2017-01-23 07:56] VITALS: BP 113/67
[2017-01-23 08:04] VITALS: BP 137/83
[2017-01-23] MEDS: BUDESONIDE RESPULE INH 0.5 MG/2 ML AMPUL.NEB IH SCH ×2 (08:09→20:28)
[2017-01-23] MEDS: ACETYLCYSTEINE 20% ORAL SOLN 6,000 MG/30 ML VIAL INH SCH ×2 (08:09→16:05)
[2017-01-23] MEDS: SITAGLIPTIN PHOSPHATE 25 MG TABLET PO SCH (08:40)
[2017-01-23] MEDS: GLYCOPYRROLATE 1 MG TABLET GT SCH ×2 (08:40→21:13)
[2017-01-23] MEDS: POLYVINYL ALCOHOL 15 ML BOTTLE EACHEYE SCH ×4 (08:40→21:13)
[2017-01-23] MEDS: ZINC OXIDE 56.7 GM TUBE TP SCH ×2 (08:41→21:14)
[2017-01-23] MEDS: VIT B CMPLX 3/FA/VIT C/BIOTIN 1 TAB TABLET PO SCH (08:41)
[2017-01-23] MEDS: MINERAL OIL/PETROL OINT 396 GM JAR TP SCH ×2 (08:41→21:14)
[2017-01-23] MEDS: SERTRALINE HCL 25 MG TABLET PO SCH (08:41)
[2017-01-23] MEDS: PROSOURCE / PROSTAT (PYXIS) 30 ML UDC PO SCH ×3 (08:41→17:32)
[2017-01-23] MEDS: HYDROGEN PEROXIDE 480 ML BOTTLE TP SCH ×2 (08:41→21:14)
[2017-01-23] MEDS: HEPARIN SODIUM, PORCINE 5000 UNITS/1 ML VIAL SQ SCH ×2 (08:41→21:14)
[2017-01-23] MEDS: NAPROXEN 500 MG TABLET PO PRN (18:11)
--- NOTE | 2017-01-23 18:13 | NUR ---
C/o left shoulder pain. Naproxen given PRN PO as ordered.
--- NOTE | 2017-01-23 19:35 | NUR ---
Pt verbalized to charge nurse that he wants to go home in 3 months. Notified MANAGER OF DISASTER RECOVERY Radha Petty. She saw pt this evening. She said pt will probably be discharged home with the trach. She also said to have delinquency prevention social worker talk with pt. Endorsed to night charge nurse.
[2017-01-23] MEDS: ASCORBIC ACID 500 MG TABLET PO SCH (21:13)
[2017-01-23] MEDS: DOCUSATE SODIUM 100 MG CAPSULE PO SCH (21:13)
[2017-01-23] MEDS: GUAIFENESIN/D-METHORPHAN HB 5 ML UDC PO PRN (21:14)
[2017-01-23] MEDS: TEMAZEPAM 15 MG CAPSULE PO SCH (21:56)
[2017-01-23] MEDS: GABAPENTIN 100 MG CAPSULE PO SCH (21:56)
[2017-01-23] MEDS: MONTELUKAST SODIUM (10MG) 10 MG TABLET PO SCH (21:56)
[2017-01-23] MEDS: [UNRECOGNIZED DRUG - OTHER] TP SCH (21:56)
[2017-01-23] MEDS: ATARAX 25 MG PO PRN (21:56)
[2017-01-24 00:04] VITALS: BP 133/83
[2017-01-24] MEDS: IPRATROPIUM NEB FS 0.5 MG/2.5 ML AMPUL.NEB IH SCH ×4 (02:19→19:30)
[2017-01-24] MEDS: ALBUTEROL FS 2.5 MG/3 ML VIAL.NEB NEB SCH ×4 (02:19→19:30)
[2017-01-24] MEDS: PANTOPRAZOLE 40 MG TABLET.DR PO SCH (06:38)
[2017-01-24] MEDS: INSULIN LISPRO/ASPART 100 UNIT/ML CARTRIDGE SQ PRN ×2 (06:57→13:40)
[2017-01-24] MEDS: BLOOD SUGAR DIAGNOSTIC 1 EACH STRIP VI SCH ×3 (07:30→18:15)
[2017-01-24 07:38] VITALS: BP 144/79
[2017-01-24] MEDS: BUDESONIDE RESPULE INH 0.5 MG/2 ML AMPUL.NEB IH SCH ×2 (08:01→21:08)
[2017-01-24] MEDS: ACETYLCYSTEINE 20% ORAL SOLN 6,000 MG/30 ML VIAL INH SCH ×2 (08:02→17:00)
[2017-01-24] MEDS: ZINC OXIDE 56.7 GM TUBE TP SCH ×2 (09:00→21:53)
[2017-01-24] MEDS: GLYCOPYRROLATE 1 MG TABLET GT SCH ×2 (09:59→21:53)
[2017-01-24] MEDS: SERTRALINE HCL 25 MG TABLET PO SCH (09:59)
[2017-01-24] MEDS: POLYVINYL ALCOHOL 15 ML BOTTLE EACHEYE SCH ×4 (09:59→21:53)
[2017-01-24] MEDS: MINERAL OIL/PETROL OINT 396 GM JAR TP SCH ×2 (09:59→21:53)
[2017-01-24] MEDS: VIT B CMPLX 3/FA/VIT C/BIOTIN 1 TAB TABLET PO SCH (09:59)
[2017-01-24] MEDS: PROSOURCE / PROSTAT (PYXIS) 30 ML UDC PO SCH ×3 (09:59→17:00)
[2017-01-24] MEDS: SITAGLIPTIN PHOSPHATE 25 MG TABLET PO SCH (09:59)
[2017-01-24] MEDS: predniSONE 10 MG TABLET PO SCH (09:59)
[2017-01-24] MEDS: HEPARIN SODIUM, PORCINE 5000 UNITS/1 ML VIAL SQ SCH ×2 (10:00→21:53)
[2017-01-24] MEDS: HYDROGEN PEROXIDE 480 ML BOTTLE TP SCH ×2 (11:15→21:53)
--- NOTE | 2017-01-24 17:34 | NUR ---
RT NOTE PT MUCOMYST MEDICATION NOT AVAILABLE AT MOMENT. MABEL GLADAMEZ NOTIFIED. PHARMACY NOTIFIED. PT IN STABLE CONDITION NO DISTRESS NOTED. Addendum: 01/24/17 at 1735 by ABEL OSMAN RT Amended: Links added.
[2017-01-24] MEDS: GUAIFENESIN/D-METHORPHAN HB 5 ML UDC PO PRN (21:35)
[2017-01-24] MEDS: ASCORBIC ACID 500 MG TABLET PO SCH (21:53)
[2017-01-24] MEDS: GABAPENTIN 100 MG CAPSULE PO SCH (21:53)
[2017-01-24] MEDS: DOCUSATE SODIUM 100 MG CAPSULE PO SCH (21:53)
[2017-01-24] MEDS: TEMAZEPAM 15 MG CAPSULE PO SCH (21:54)
[2017-01-24] MEDS: [UNRECOGNIZED DRUG - OTHER] TP SCH (21:54)
[2017-01-24] MEDS: MONTELUKAST SODIUM (10MG) 10 MG TABLET PO SCH (21:54)
[2017-01-24 22:07] VITALS: BP 138/101
[2017-01-25] MEDS: IPRATROPIUM NEB FS 0.5 MG/2.5 ML AMPUL.NEB IH SCH ×4 (01:30→19:51)
[2017-01-25] MEDS: ALBUTEROL FS 2.5 MG/3 ML VIAL.NEB NEB SCH ×4 (01:30→19:51)
[2017-01-25] MEDS: PANTOPRAZOLE 40 MG TABLET.DR PO SCH (06:20)
--- NOTE | 2017-01-25 06:50 | NUR ---
Pt complaining of numbness both arms and chocking.Asked pt if any chest pain and head ache but denies.Vital signs is stable.BP 131/96,HR 75 and Oxygen saturation 100%.Pt more calm after seeing his vital signs.Told him to hector if he feel any difficulty.Will closely monitor and will endorse.
[2017-01-25] MEDS: BLOOD SUGAR DIAGNOSTIC 1 EACH STRIP VI SCH ×3 (07:07→16:30)
[2017-01-25] MEDS: INSULIN LISPRO/ASPART 100 UNIT/ML CARTRIDGE SQ PRN ×2 (07:08→16:31)
[2017-01-25] MEDS: BUDESONIDE RESPULE INH 0.5 MG/2 ML AMPUL.NEB IH SCH ×2 (07:21→19:51)
[2017-01-25 07:42] VITALS: BP 150/84
[2017-01-25] MEDS: VIT B CMPLX 3/FA/VIT C/BIOTIN 1 TAB TABLET PO SCH (08:08)
[2017-01-25] MEDS: GLYCOPYRROLATE 1 MG TABLET GT SCH ×2 (08:08→20:26)
[2017-01-25] MEDS: SERTRALINE HCL 25 MG TABLET PO SCH (08:08)
[2017-01-25] MEDS: PROSOURCE / PROSTAT (PYXIS) 30 ML UDC PO SCH ×3 (08:08→16:17)
[2017-01-25] MEDS: SITAGLIPTIN PHOSPHATE 25 MG TABLET PO SCH (08:08)
[2017-01-25] MEDS: POLYVINYL ALCOHOL 15 ML BOTTLE EACHEYE SCH ×4 (08:08→20:26)
[2017-01-25] MEDS: HEPARIN SODIUM, PORCINE 5000 UNITS/1 ML VIAL SQ SCH ×2 (08:09→20:28)
[2017-01-25] MEDS: MINERAL OIL/PETROL OINT 396 GM JAR TP SCH ×2 (08:09→20:28)
[2017-01-25] MEDS: GUAIFENESIN/D-METHORPHAN HB 5 ML UDC PO PRN ×2 (08:19→20:28)
[2017-01-25] MEDS: ZINC OXIDE 56.7 GM TUBE TP SCH ×2 (09:00→20:28)
[2017-01-25] MEDS: HYDROGEN PEROXIDE 480 ML BOTTLE TP SCH ×2 (09:00→20:28)
[2017-01-25] MEDS: ACETYLCYSTEINE 20% ORAL SOLN 6,000 MG/30 ML VIAL INH SCH (09:00)
[2017-01-25] MEDS: NAPROXEN 500 MG TABLET PO PRN ×2 (16:16→20:28)
[2017-01-25 20:03] VITALS: BP 141/89
[2017-01-25] MEDS: ASCORBIC ACID 500 MG TABLET PO SCH (20:26)
[2017-01-25] MEDS: DOCUSATE SODIUM 100 MG CAPSULE PO SCH (20:26)
[2017-01-25] MEDS: GABAPENTIN 100 MG CAPSULE PO SCH (22:20)
[2017-01-25] MEDS: MONTELUKAST SODIUM (10MG) 10 MG TABLET PO SCH (22:20)
[2017-01-25] MEDS: [UNRECOGNIZED DRUG - OTHER] TP SCH (22:20)
[2017-01-25] MEDS: TEMAZEPAM 15 MG CAPSULE PO SCH (22:20)
[2017-01-26] MEDS: IPRATROPIUM NEB FS 0.5 MG/2.5 ML AMPUL.NEB IH SCH ×4 (00:47→20:26)
[2017-01-26] MEDS: ALBUTEROL FS 2.5 MG/3 ML VIAL.NEB NEB SCH ×4 (00:47→20:26)
[2017-01-26] MEDS: PANTOPRAZOLE 40 MG TABLET.DR PO SCH (06:36)
[2017-01-26] MEDS: BLOOD SUGAR DIAGNOSTIC 1 EACH STRIP VI SCH ×3 (06:36→17:46)
[2017-01-26] MEDS: INSULIN LISPRO/ASPART 100 UNIT/ML CARTRIDGE SQ PRN ×3 (06:37→17:48)
[2017-01-26 07:49] VITALS: BP 135/80
[2017-01-26] MEDS: ACETYLCYSTEINE 20% ORAL SOLN 6,000 MG/30 ML VIAL INH SCH ×2 (08:31→17:53)
[2017-01-26] MEDS: POLYVINYL ALCOHOL 15 ML BOTTLE EACHEYE SCH ×4 (09:00→21:48)
[2017-01-26] MEDS: SITAGLIPTIN PHOSPHATE 25 MG TABLET PO SCH (09:00)
[2017-01-26] MEDS: GLYCOPYRROLATE 1 MG TABLET GT SCH ×2 (09:00→21:48)
[2017-01-26] MEDS: HEPARIN SODIUM, PORCINE 5000 UNITS/1 ML VIAL SQ SCH ×2 (09:01→21:49)
[2017-01-26] MEDS: VIT B CMPLX 3/FA/VIT C/BIOTIN 1 TAB TABLET PO SCH (09:01)
[2017-01-26] MEDS: MINERAL OIL/PETROL OINT 396 GM JAR TP SCH ×2 (09:01→21:49)
[2017-01-26] MEDS: predniSONE 10 MG TABLET PO SCH (09:01)
[2017-01-26] MEDS: SERTRALINE HCL 25 MG TABLET PO SCH (09:01)
[2017-01-26] MEDS: PROSOURCE / PROSTAT (PYXIS) 30 ML UDC PO SCH ×3 (09:01→16:13)
[2017-01-26] MEDS: ZINC OXIDE 56.7 GM TUBE TP SCH ×2 (09:02→21:49)
[2017-01-26] MEDS: HYDROGEN PEROXIDE 480 ML BOTTLE TP SCH ×2 (09:02→21:49)
[2017-01-26] MEDS: BUDESONIDE RESPULE INH 0.5 MG/2 ML AMPUL.NEB IH SCH ×2 (09:05→21:51)
[2017-01-26 19:50] VITALS: BP 142/95
[2017-01-26] MEDS: MONTELUKAST SODIUM (10MG) 10 MG TABLET PO SCH (21:49)
[2017-01-26] MEDS: GABAPENTIN 100 MG CAPSULE PO SCH (21:49)
[2017-01-26] MEDS: TEMAZEPAM 15 MG CAPSULE PO SCH (21:49)
[2017-01-26] MEDS: ASCORBIC ACID 500 MG TABLET PO SCH (21:49)
[2017-01-26] MEDS: DOCUSATE SODIUM 100 MG CAPSULE PO SCH (21:49)
[2017-01-26] MEDS: [UNRECOGNIZED DRUG - OTHER] TP SCH (21:50)
[2017-01-27] MEDS: IPRATROPIUM NEB FS 0.5 MG/2.5 ML AMPUL.NEB IH SCH ×4 (01:30→19:52)
[2017-01-27] MEDS: ALBUTEROL FS 2.5 MG/3 ML VIAL.NEB NEB SCH ×4 (01:30→19:52)
[2017-01-27] MEDS: PANTOPRAZOLE 40 MG TABLET.DR PO SCH (06:00)
[2017-01-27] MEDS: BLOOD SUGAR DIAGNOSTIC 1 EACH STRIP VI SCH ×3 (06:56→18:15)
[2017-01-27] MEDS: BUDESONIDE RESPULE INH 0.5 MG/2 ML AMPUL.NEB IH SCH ×2 (07:52→19:52)
[2017-01-27] MEDS: ACETYLCYSTEINE 20% ORAL SOLN 6,000 MG/30 ML VIAL INH SCH (07:53)
[2017-01-27] MEDS: GLYCOPYRROLATE 1 MG TABLET GT SCH ×2 (08:52→21:48)
[2017-01-27] MEDS: POLYVINYL ALCOHOL 15 ML BOTTLE EACHEYE SCH ×4 (08:52→21:48)
[2017-01-27] MEDS: SITAGLIPTIN PHOSPHATE 25 MG TABLET PO SCH (08:52)
[2017-01-27] MEDS: MINERAL OIL/PETROL OINT 396 GM JAR TP SCH ×2 (08:53→21:49)
[2017-01-27] MEDS: HEPARIN SODIUM, PORCINE 5000 UNITS/1 ML VIAL SQ SCH ×2 (08:53→21:49)
[2017-01-27] MEDS: PROSOURCE / PROSTAT (PYXIS) 30 ML UDC PO SCH ×3 (08:53→17:49)
[2017-01-27] MEDS: VIT B CMPLX 3/FA/VIT C/BIOTIN 1 TAB TABLET PO SCH (08:53)
[2017-01-27] MEDS: HYDROGEN PEROXIDE 480 ML BOTTLE TP SCH ×2 (08:53→21:49)
[2017-01-27] MEDS: SERTRALINE HCL 25 MG TABLET PO SCH (08:53)
[2017-01-27] MEDS: ZINC OXIDE 56.7 GM TUBE TP SCH ×2 (08:53→21:49)
[2017-01-27] MEDS: GUAIFENESIN/D-METHORPHAN HB 5 ML UDC PO PRN (09:03)
[2017-01-27 11:08] VITALS: BP 140/94
[2017-01-27] MEDS: INSULIN LISPRO/ASPART 100 UNIT/ML CARTRIDGE SQ PRN ×2 (12:09→18:16)
--- NOTE | 2017-01-27 12:15 | NUR ---
RT Cifuentes spoke with AIRLINE CUSTOMER SERVICE AGENT Radha Petty to ask if pt still needs Mucomyst. Received order to DC Mucomyst.
--- NOTE | 2017-01-27 15:42 | NUR ---
Spoke to the resident who stated that he wants to go home three months from now and expects to be walking. market garden worker spoke to the resident about his plans and he stated that he does not want to go home with the trach and wants to be responsible for his own affairs. market garden worker encouraged resident to participate in RNA exercises, including getting up in the wheelchair. He stated that he has a plan to start walking and feels that he could start walking as of this day. market garden worker stated to resident that he has to follow recommendations of PT but that he can at least try getting up in his wheelchair. He stated that he will try this with the RNA. Charge nurse informed of conversation.
[2017-01-27 20:04] VITALS: BP 138/90
[2017-01-27] MEDS: DOCUSATE SODIUM 100 MG CAPSULE PO SCH (21:48)
[2017-01-27] MEDS: ASCORBIC ACID 500 MG TABLET PO SCH (21:48)
[2017-01-27] MEDS: TEMAZEPAM 15 MG CAPSULE PO SCH (21:49)
[2017-01-27] MEDS: GABAPENTIN 100 MG CAPSULE PO SCH (21:49)
[2017-01-27] MEDS: [UNRECOGNIZED DRUG - OTHER] TP SCH (21:50)
[2017-01-27] MEDS: MONTELUKAST SODIUM (10MG) 10 MG TABLET PO SCH (21:50)
[2017-01-28] MEDS: ALBUTEROL FS 2.5 MG/3 ML VIAL.NEB NEB SCH ×4 (02:16→20:12)
[2017-01-28] MEDS: IPRATROPIUM NEB FS 0.5 MG/2.5 ML AMPUL.NEB IH SCH ×4 (02:16→20:12)
[2017-01-28] MEDS: PANTOPRAZOLE 40 MG TABLET.DR PO SCH (06:10)
[2017-01-28] MEDS: BLOOD SUGAR DIAGNOSTIC 1 EACH STRIP VI SCH ×3 (07:10→17:36)
[2017-01-28 08:21] VITALS: BP 143/82
[2017-01-28] MEDS: HYDROGEN PEROXIDE 480 ML BOTTLE TP SCH ×2 (08:31→21:39)
[2017-01-28] MEDS: PROSOURCE / PROSTAT (PYXIS) 30 ML UDC PO SCH ×3 (08:31→17:36)
[2017-01-28] MEDS: POLYVINYL ALCOHOL 15 ML BOTTLE EACHEYE SCH ×4 (08:31→21:38)
[2017-01-28] MEDS: SITAGLIPTIN PHOSPHATE 25 MG TABLET PO SCH (08:31)
[2017-01-28] MEDS: GLYCOPYRROLATE 1 MG TABLET GT SCH ×2 (08:31→21:38)
[2017-01-28] MEDS: ZINC OXIDE 56.7 GM TUBE TP SCH ×2 (08:31→21:39)
[2017-01-28] MEDS: MINERAL OIL/PETROL OINT 396 GM JAR TP SCH ×2 (08:31→21:39)
[2017-01-28] MEDS: VIT B CMPLX 3/FA/VIT C/BIOTIN 1 TAB TABLET PO SCH (08:31)
[2017-01-28] MEDS: SERTRALINE HCL 25 MG TABLET PO SCH (08:31)
[2017-01-28] MEDS: HEPARIN SODIUM, PORCINE 5000 UNITS/1 ML VIAL SQ SCH ×2 (08:31→21:39)
[2017-01-28] MEDS: predniSONE 10 MG TABLET PO SCH (08:31)
[2017-01-28] MEDS: BUDESONIDE RESPULE INH 0.5 MG/2 ML AMPUL.NEB IH SCH ×2 (08:39→20:41)
[2017-01-28] MEDS: INSULIN LISPRO/ASPART 100 UNIT/ML CARTRIDGE SQ PRN (17:41)
[2017-01-28 20:08] VITALS: BP 148/94
[2017-01-28] MEDS: ASCORBIC ACID 500 MG TABLET PO SCH (21:38)
[2017-01-28] MEDS: DOCUSATE SODIUM 100 MG CAPSULE PO SCH (21:38)
[2017-01-28] MEDS: GABAPENTIN 100 MG CAPSULE PO SCH (21:39)
[2017-01-28] MEDS: TEMAZEPAM 15 MG CAPSULE PO SCH (21:39)
[2017-01-28] MEDS: MONTELUKAST SODIUM (10MG) 10 MG TABLET PO SCH (21:39)
[2017-01-28] MEDS: [UNRECOGNIZED DRUG - OTHER] TP SCH (21:39)
[2017-01-29] MEDS: ALBUTEROL FS 2.5 MG/3 ML VIAL.NEB NEB SCH ×4 (02:13→19:37)
[2017-01-29] MEDS: IPRATROPIUM NEB FS 0.5 MG/2.5 ML AMPUL.NEB IH SCH ×4 (02:13→19:37)
[2017-01-29] MEDS: PANTOPRAZOLE 40 MG TABLET.DR PO SCH (05:48)
[2017-01-29] MEDS: BLOOD SUGAR DIAGNOSTIC 1 EACH STRIP VI SCH ×3 (06:41→17:15)
[2017-01-29] MEDS: BUDESONIDE RESPULE INH 0.5 MG/2 ML AMPUL.NEB IH SCH ×2 (08:06→19:37)
[2017-01-29] MEDS: POLYVINYL ALCOHOL 15 ML BOTTLE EACHEYE SCH ×4 (08:17→21:50)
[2017-01-29] MEDS: GLYCOPYRROLATE 1 MG TABLET GT SCH ×2 (08:18→21:50)
[2017-01-29] MEDS: SERTRALINE HCL 25 MG TABLET PO SCH (08:18)
[2017-01-29] MEDS: PROSOURCE / PROSTAT (PYXIS) 30 ML UDC PO SCH ×3 (08:18→17:15)
[2017-01-29] MEDS: SITAGLIPTIN PHOSPHATE 25 MG TABLET PO SCH (08:18)
[2017-01-29] MEDS: VIT B CMPLX 3/FA/VIT C/BIOTIN 1 TAB TABLET PO SCH (08:18)
[2017-01-29] MEDS: HEPARIN SODIUM, PORCINE 5000 UNITS/1 ML VIAL SQ SCH ×2 (08:19→21:50)
[2017-01-29] MEDS: MINERAL OIL/PETROL OINT 396 GM JAR TP SCH ×2 (08:19→21:50)
[2017-01-29 08:32] VITALS: BP 129/83
[2017-01-29] MEDS: NAPROXEN 500 MG TABLET PO PRN ×2 (08:35→21:51)
[2017-01-29] MEDS: GUAIFENESIN/D-METHORPHAN HB 5 ML UDC PO PRN ×2 (08:36→21:54)
[2017-01-29] MEDS: HYDROGEN PEROXIDE 480 ML BOTTLE TP SCH ×2 (09:00→21:50)
[2017-01-29] MEDS: ZINC OXIDE 56.7 GM TUBE TP SCH ×2 (09:00→21:50)
[2017-01-29] MEDS: INSULIN LISPRO/ASPART 100 UNIT/ML CARTRIDGE SQ PRN ×2 (11:16→17:16)
--- NOTE | 2017-01-29 12:30 | NUR ---
Resident up in the wheelchair x 4 hours ate lunch while sitting up in W/C well tolerated. Occasionally he complains he is feeling tired. He is watching TV, repositioned for comfort PRN & kept call light within easy reach.
[2017-01-29 19:59] VITALS: BP 139/90
[2017-01-29] MEDS: ASCORBIC ACID 500 MG TABLET PO SCH (21:50)
[2017-01-29] MEDS: DOCUSATE SODIUM 100 MG CAPSULE PO SCH (21:50)
[2017-01-29] MEDS: GABAPENTIN 100 MG CAPSULE PO SCH (21:50)
[2017-01-29] MEDS: TEMAZEPAM 15 MG CAPSULE PO SCH (21:51)
[2017-01-29] MEDS: [UNRECOGNIZED DRUG - OTHER] TP SCH (21:51)
[2017-01-29] MEDS: MONTELUKAST SODIUM (10MG) 10 MG TABLET PO SCH (21:51)
[2017-01-29] MEDS: ATARAX 25 MG PO PRN (21:53)
[2017-01-30] MEDS: ALBUTEROL FS 2.5 MG/3 ML VIAL.NEB NEB SCH ×4 (01:51→19:46)
[2017-01-30] MEDS: IPRATROPIUM NEB FS 0.5 MG/2.5 ML AMPUL.NEB IH SCH ×4 (01:51→19:46)
[2017-01-30] MEDS: PANTOPRAZOLE 40 MG TABLET.DR PO SCH (06:16)
[2017-01-30] MEDS: BLOOD SUGAR DIAGNOSTIC 1 EACH STRIP VI SCH ×3 (06:46→16:59)
[2017-01-30] MEDS: INSULIN LISPRO/ASPART 100 UNIT/ML CARTRIDGE SQ PRN ×2 (06:48→17:03)
[2017-01-30 07:40] VITALS: BP 137/86
[2017-01-30] MEDS: BUDESONIDE RESPULE INH 0.5 MG/2 ML AMPUL.NEB IH SCH ×2 (08:07→20:04)
[2017-01-30] MEDS: POLYVINYL ALCOHOL 15 ML BOTTLE EACHEYE SCH ×4 (08:30→21:25)
[2017-01-30] MEDS: PROSOURCE / PROSTAT (PYXIS) 30 ML UDC PO SCH ×3 (08:30→16:59)
[2017-01-30] MEDS: VIT B CMPLX 3/FA/VIT C/BIOTIN 1 TAB TABLET PO SCH (08:30)
[2017-01-30] MEDS: predniSONE 10 MG TABLET PO SCH (08:30)
[2017-01-30] MEDS: SERTRALINE HCL 25 MG TABLET PO SCH (08:30)
[2017-01-30] MEDS: SITAGLIPTIN PHOSPHATE 25 MG TABLET PO SCH (08:30)
[2017-01-30] MEDS: GLYCOPYRROLATE 1 MG TABLET GT SCH ×2 (08:30→21:25)
[2017-01-30] MEDS: HEPARIN SODIUM, PORCINE 5000 UNITS/1 ML VIAL SQ SCH ×2 (08:31→21:26)
[2017-01-30] MEDS: ZINC OXIDE 56.7 GM TUBE TP SCH ×2 (08:31→21:26)
[2017-01-30] MEDS: HYDROGEN PEROXIDE 480 ML BOTTLE TP SCH ×2 (08:31→21:26)
[2017-01-30] MEDS: MINERAL OIL/PETROL OINT 396 GM JAR TP SCH ×2 (08:31→21:26)
[2017-01-30] MEDS: NAPROXEN 500 MG TABLET PO PRN (17:01)
[2017-01-30 19:29] VITALS: BP 121/78
[2017-01-30] MEDS: DOCUSATE SODIUM 100 MG CAPSULE PO SCH (21:25)
[2017-01-30] MEDS: ASCORBIC ACID 500 MG TABLET PO SCH (21:25)
[2017-01-30] MEDS: TEMAZEPAM 15 MG CAPSULE PO SCH (21:26)
[2017-01-30] MEDS: [UNRECOGNIZED DRUG - OTHER] TP SCH (21:26)
[2017-01-30] MEDS: GABAPENTIN 100 MG CAPSULE PO SCH (21:26)
[2017-01-30] MEDS: MONTELUKAST SODIUM (10MG) 10 MG TABLET PO SCH (21:26)
[2017-01-31] MEDS: ALBUTEROL FS 2.5 MG/3 ML VIAL.NEB NEB SCH ×4 (01:05→20:01)
[2017-01-31] MEDS: IPRATROPIUM NEB FS 0.5 MG/2.5 ML AMPUL.NEB IH SCH ×4 (01:05→20:01)
[2017-01-31] MEDS: PANTOPRAZOLE 40 MG TABLET.DR PO SCH (05:55)
[2017-01-31] MEDS: BLOOD SUGAR DIAGNOSTIC 1 EACH STRIP VI SCH ×3 (07:02→17:57)
[2017-01-31] MEDS: INSULIN LISPRO/ASPART 100 UNIT/ML CARTRIDGE SQ PRN ×3 (07:02→18:05)
[2017-01-31] MEDS: BUDESONIDE RESPULE INH 0.5 MG/2 ML AMPUL.NEB IH SCH ×2 (08:03→20:44)
[2017-01-31] MEDS: HYDROGEN PEROXIDE 480 ML BOTTLE TP SCH ×2 (09:00→21:40)
[2017-01-31] MEDS: ZINC OXIDE 56.7 GM TUBE TP SCH ×2 (09:00→21:40)
[2017-01-31] MEDS: MINERAL OIL/PETROL OINT 396 GM JAR TP SCH ×2 (09:00→21:40)
[2017-01-31] MEDS: POLYVINYL ALCOHOL 15 ML BOTTLE EACHEYE SCH ×4 (09:48→21:39)
[2017-01-31] MEDS: GLYCOPYRROLATE 1 MG TABLET GT SCH (09:48)
[2017-01-31] MEDS: VIT B CMPLX 3/FA/VIT C/BIOTIN 1 TAB TABLET PO SCH (09:49)
[2017-01-31] MEDS: SERTRALINE HCL 25 MG TABLET PO SCH (09:49)
[2017-01-31] MEDS: PROSOURCE / PROSTAT (PYXIS) 30 ML UDC PO SCH ×3 (09:49→17:56)
[2017-01-31] MEDS: HEPARIN SODIUM, PORCINE 5000 UNITS/1 ML VIAL SQ SCH ×2 (09:49→21:39)
[2017-01-31] MEDS: SITAGLIPTIN PHOSPHATE 25 MG TABLET PO SCH (09:49)
[2017-01-31] MEDS: NAPROXEN 500 MG TABLET PO PRN ×2 (09:56→21:42)
[2017-01-31] MEDS: GUAIFENESIN/D-METHORPHAN HB 5 ML UDC PO PRN ×2 (10:03→21:43)
[2017-01-31 10:29] VITALS: BP 142/85
--- NOTE | 2017-01-31 18:47 | NUR ---
Resident checked blood sugar at around 1720 result 57mg/dl, offered apple juice X 3, explained risks and benefits, still refused. resident alert and oriented X 4. residents states im eating my bread now, it will go up in a little while. rechecked residents blood sugar after 30 minutes. result 76 mg/dl. no insulin coverage given. resident able to verbalize needs and concerned. no signs and symptoms of hypoglycemia noted. Charge nurse aware. will monitor.
[2017-01-31 19:48] VITALS: BP 144/89
[2017-01-31] MEDS: ASCORBIC ACID 500 MG TABLET PO SCH (21:39)
[2017-01-31] MEDS: DOCUSATE SODIUM 100 MG CAPSULE PO SCH (21:39)
[2017-01-31] MEDS: GLYCOPYRROLATE 1 MG TABLET PO SCH (21:39)
[2017-01-31] MEDS: TEMAZEPAM 15 MG CAPSULE PO SCH (21:40)
[2017-01-31] MEDS: GABAPENTIN 100 MG CAPSULE PO SCH (21:40)
[2017-01-31] MEDS: MONTELUKAST SODIUM (10MG) 10 MG TABLET PO SCH (21:40)
[2017-01-31] MEDS: [UNRECOGNIZED DRUG - OTHER] TP SCH (21:41)
[2017-02-01] MEDS: ALBUTEROL FS 2.5 MG/3 ML VIAL.NEB NEB SCH ×4 (01:30→19:27)
[2017-02-01] MEDS: IPRATROPIUM NEB FS 0.5 MG/2.5 ML AMPUL.NEB IH SCH ×4 (01:30→19:27)
[2017-02-01] MEDS: PANTOPRAZOLE 40 MG TABLET.DR PO SCH (05:59)
[2017-02-01] MEDS: BLOOD SUGAR DIAGNOSTIC 1 EACH STRIP VI SCH ×3 (06:59→16:50)
[2017-02-01] MEDS: INSULIN LISPRO/ASPART 100 UNIT/ML CARTRIDGE SQ PRN ×2 (07:00→16:52)
[2017-02-01] MEDS: BUDESONIDE RESPULE INH 0.5 MG/2 ML AMPUL.NEB IH SCH ×2 (08:03→21:00)
[2017-02-01] MEDS: POLYVINYL ALCOHOL 15 ML BOTTLE EACHEYE SCH ×4 (08:19→21:05)
[2017-02-01] MEDS: SITAGLIPTIN PHOSPHATE 25 MG TABLET PO SCH (08:20)
[2017-02-01] MEDS: PROSOURCE / PROSTAT (PYXIS) 30 ML UDC PO SCH ×3 (08:20→16:49)
[2017-02-01] MEDS: predniSONE 10 MG TABLET PO SCH (08:20)
[2017-02-01] MEDS: GLYCOPYRROLATE 1 MG TABLET PO SCH ×2 (08:20→21:00)
[2017-02-01] MEDS: VIT B CMPLX 3/FA/VIT C/BIOTIN 1 TAB TABLET PO SCH (08:20)
[2017-02-01] MEDS: SERTRALINE HCL 25 MG TABLET PO SCH (08:20)
[2017-02-01] MEDS: HEPARIN SODIUM, PORCINE 5000 UNITS/1 ML VIAL SQ SCH ×2 (08:21→21:06)
[2017-02-01] MEDS: MINERAL OIL/PETROL OINT 396 GM JAR TP SCH ×2 (08:21→21:06)
[2017-02-01] MEDS: ZINC OXIDE 56.7 GM TUBE TP SCH ×2 (08:22→21:06)
[2017-02-01] MEDS: NAPROXEN 500 MG TABLET PO PRN ×2 (08:22→23:05)
[2017-02-01] MEDS: HYDROGEN PEROXIDE 480 ML BOTTLE TP SCH ×2 (08:22→21:06)
[2017-02-01] MEDS ORDERED: TUBERCULIN,PURIF.PROT.DERIV. 5 TU/0.1 ML VIAL ID SCH (09:00)
--- NOTE | 2017-02-01 09:25 | NUR ---
Resident left for dialysis in stable condition, R upper chest perma cath dressing intact, no bleeding. Resident alert, no s/s of discomfort. Called Renal Center spoke with MABEL Reynoso notifying him of the lab result collected on 01/30/17 with K 5.7 according to Edgardo he will inform the CN to take a look at the lab results collected that day.
[2017-02-01] MEDS ORDERED: ACETAMINOPHEN 325 MG TABLET PO PRN (09:30)
--- NOTE | 2017-02-01 14:00 | NUR ---
Resident returned back from dialysis,condition stable, R upper chest permacath no bleeding from the site, dressing intact, Resident denies any pain.
[2017-02-01 19:42] VITALS: BP 141/85
[2017-02-01] MEDS: DOCUSATE SODIUM 100 MG CAPSULE PO SCH (21:05)
[2017-02-01] MEDS: ASCORBIC ACID 500 MG TABLET PO SCH (21:05)
[2017-02-01] MEDS: [UNRECOGNIZED DRUG - OTHER] TP SCH (21:06)
[2017-02-01] MEDS: MONTELUKAST SODIUM (10MG) 10 MG TABLET PO SCH (21:06)
[2017-02-01] MEDS: TEMAZEPAM 15 MG CAPSULE PO SCH (21:06)
[2017-02-01] MEDS: GABAPENTIN 100 MG CAPSULE PO SCH (21:06)
[2017-02-01] MEDS: GUAIFENESIN/D-METHORPHAN HB 5 ML UDC PO PRN (23:06)
[2017-02-02] MEDS: IPRATROPIUM NEB FS 0.5 MG/2.5 ML AMPUL.NEB IH SCH ×4 (01:00→20:05)
[2017-02-02] MEDS: ALBUTEROL FS 2.5 MG/3 ML VIAL.NEB NEB SCH ×4 (01:00→20:05)
[2017-02-02] MEDS: BLOOD SUGAR DIAGNOSTIC 1 EACH STRIP VI SCH ×3 (06:52→17:16)
[2017-02-02] MEDS: PANTOPRAZOLE 40 MG TABLET.DR PO SCH (06:52)
[2017-02-02] MEDS: INSULIN LISPRO/ASPART 100 UNIT/ML CARTRIDGE SQ PRN ×2 (06:53→12:33)
[2017-02-02 07:35] VITALS: BP 141/82
[2017-02-02] MEDS: BUDESONIDE RESPULE INH 0.5 MG/2 ML AMPUL.NEB IH SCH ×2 (08:58→20:41)
[2017-02-02] MEDS: MINERAL OIL/PETROL OINT 396 GM JAR TP SCH ×2 (09:00→21:15)
[2017-02-02] MEDS: ZINC OXIDE 56.7 GM TUBE TP SCH ×2 (09:00→21:15)
[2017-02-02] MEDS: HYDROGEN PEROXIDE 480 ML BOTTLE TP SCH ×2 (09:00→21:15)
[2017-02-02] MEDS: NAPROXEN 500 MG TABLET PO PRN (09:56)
[2017-02-02] MEDS: GLYCOPYRROLATE 1 MG TABLET PO SCH ×2 (09:56→21:15)
[2017-02-02] MEDS: GUAIFENESIN/D-METHORPHAN HB 5 ML UDC PO PRN (09:56)
[2017-02-02] MEDS: POLYVINYL ALCOHOL 15 ML BOTTLE EACHEYE SCH ×4 (09:56→21:15)
[2017-02-02] MEDS: HEPARIN SODIUM, PORCINE 5000 UNITS/1 ML VIAL SQ SCH ×2 (09:57→21:15)
[2017-02-02] MEDS: SERTRALINE HCL 25 MG TABLET PO SCH (09:57)
[2017-02-02] MEDS: VIT B CMPLX 3/FA/VIT C/BIOTIN 1 TAB TABLET PO SCH (09:57)
[2017-02-02] MEDS: PROSOURCE / PROSTAT (PYXIS) 30 ML UDC PO SCH ×3 (09:57→16:56)
[2017-02-02] MEDS: SITAGLIPTIN PHOSPHATE 25 MG TABLET PO SCH (09:57)
--- NOTE | 2017-02-02 17:38 | NUR ---
Patient said he received PPD in dialysis center two months earlier. So he refused the skin test here. Will endorse to the next shift RN to clarify with dialysis nurse on Friday.
[2017-02-02 19:58] VITALS: BP 142/88
[2017-02-02] MEDS: ASCORBIC ACID 500 MG TABLET PO SCH (21:15)
[2017-02-02] MEDS: DOCUSATE SODIUM 100 MG CAPSULE PO SCH (21:15)
[2017-02-02] MEDS: MONTELUKAST SODIUM (10MG) 10 MG TABLET PO SCH (21:16)
[2017-02-02] MEDS: [UNRECOGNIZED DRUG - OTHER] TP SCH (21:16)
[2017-02-02] MEDS: GABAPENTIN 100 MG CAPSULE PO SCH (21:16)
[2017-02-02] MEDS: TEMAZEPAM 15 MG CAPSULE PO SCH (21:16)
[2017-02-03] MEDS: ALBUTEROL FS 2.5 MG/3 ML VIAL.NEB NEB SCH ×4 (01:52→20:09)
[2017-02-03] MEDS: IPRATROPIUM NEB FS 0.5 MG/2.5 ML AMPUL.NEB IH SCH ×4 (01:52→20:09)
[2017-02-03] MEDS: PANTOPRAZOLE 40 MG TABLET.DR PO SCH (05:49)
[2017-02-03] MEDS: BLOOD SUGAR DIAGNOSTIC 1 EACH STRIP VI SCH ×3 (06:46→16:44)
[2017-02-03 07:30] VITALS: BP 145/98
[2017-02-03] MEDS: POLYVINYL ALCOHOL 15 ML BOTTLE EACHEYE SCH ×4 (08:20→21:26)
[2017-02-03] MEDS: GLYCOPYRROLATE 1 MG TABLET PO SCH ×2 (08:20→21:26)
[2017-02-03] MEDS: PROSOURCE / PROSTAT (PYXIS) 30 ML UDC PO SCH ×3 (08:20→16:44)
[2017-02-03] MEDS: SITAGLIPTIN PHOSPHATE 25 MG TABLET PO SCH (08:20)
[2017-02-03] MEDS: predniSONE 10 MG TABLET PO SCH (08:20)
[2017-02-03] MEDS: VIT B CMPLX 3/FA/VIT C/BIOTIN 1 TAB TABLET PO SCH (08:20)
[2017-02-03] MEDS: SERTRALINE HCL 25 MG TABLET PO SCH (08:20)
[2017-02-03] MEDS: MINERAL OIL/PETROL OINT 396 GM JAR TP SCH ×2 (08:21→21:27)
[2017-02-03] MEDS: HEPARIN SODIUM, PORCINE 5000 UNITS/1 ML VIAL SQ SCH ×2 (08:21→21:27)
[2017-02-03] MEDS: BUDESONIDE RESPULE INH 0.5 MG/2 ML AMPUL.NEB IH SCH ×2 (08:26→20:09)
--- NOTE | 2017-02-03 09:00 | NUR ---
Spoke with Ricky BOURGEOIS at [facility] and confirmed that patient did not get PPD test at dialysis center however resident received flu vaccine 01/04/17. Inform resident and agreed to get annual PPD test.
--- NOTE | 2017-02-03 11:30 | NUR ---
Seen and examined by LUZ RaymondO given at this time. Resident up in the wheelchair with 2 person assist with the use of Dank lift.
[2017-02-03] MEDS: INSULIN LISPRO/ASPART 100 UNIT/ML CARTRIDGE SQ PRN ×2 (12:15→16:44)
[2017-02-03] MEDS: ZINC OXIDE 56.7 GM TUBE TP SCH ×2 (16:43→21:27)
[2017-02-03] MEDS: HYDROGEN PEROXIDE 480 ML BOTTLE TP SCH ×2 (16:43→21:27)
[2017-02-03] MEDS ORDERED: TEMAZEPAM 7.5 MG CAPSULE PO PRN (17:00)
[2017-02-03 19:38] VITALS: BP 157/97
[2017-02-03] MEDS: ASCORBIC ACID 500 MG TABLET PO SCH (21:26)
[2017-02-03] MEDS: DOCUSATE SODIUM 100 MG CAPSULE PO SCH (21:26)
[2017-02-03] MEDS: MONTELUKAST SODIUM (10MG) 10 MG TABLET PO SCH (21:27)
[2017-02-03] MEDS: GABAPENTIN 100 MG CAPSULE PO SCH (21:27)
[2017-02-03] MEDS: [UNRECOGNIZED DRUG - OTHER] TP SCH (21:28)
[2017-02-03] MEDS: GUAIFENESIN/D-METHORPHAN HB 5 ML UDC PO PRN (21:34)
[2017-02-04] MEDS: IPRATROPIUM NEB FS 0.5 MG/2.5 ML AMPUL.NEB IH SCH ×4 (01:43→19:56)
[2017-02-04] MEDS: ALBUTEROL FS 2.5 MG/3 ML VIAL.NEB NEB SCH ×4 (01:43→19:56)
[2017-02-04] MEDS: PANTOPRAZOLE 40 MG TABLET.DR PO SCH (06:47)
[2017-02-04] MEDS: BLOOD SUGAR DIAGNOSTIC 1 EACH STRIP VI SCH ×3 (06:47→17:18)
[2017-02-04 07:55] VITALS: BP 138/91
[2017-02-04] MEDS: PROSOURCE / PROSTAT (PYXIS) 30 ML UDC PO SCH ×3 (08:04→17:09)
[2017-02-04] MEDS: POLYVINYL ALCOHOL 15 ML BOTTLE EACHEYE SCH ×4 (08:04→21:11)
[2017-02-04] MEDS: SERTRALINE HCL 25 MG TABLET PO SCH (08:04)
[2017-02-04] MEDS: SITAGLIPTIN PHOSPHATE 25 MG TABLET PO SCH (08:04)
[2017-02-04] MEDS: GLYCOPYRROLATE 1 MG TABLET PO SCH ×2 (08:04→21:11)
[2017-02-04] MEDS: VIT B CMPLX 3/FA/VIT C/BIOTIN 1 TAB TABLET PO SCH (08:04)
[2017-02-04] MEDS: ZINC OXIDE 56.7 GM TUBE TP SCH ×2 (08:05→21:12)
[2017-02-04] MEDS: HYDROGEN PEROXIDE 480 ML BOTTLE TP SCH ×2 (08:05→21:12)
[2017-02-04] MEDS: HEPARIN SODIUM, PORCINE 5000 UNITS/1 ML VIAL SQ SCH ×2 (08:05→21:12)
[2017-02-04] MEDS: MINERAL OIL/PETROL OINT 396 GM JAR TP SCH ×2 (08:05→21:12)
[2017-02-04] MEDS: BUDESONIDE RESPULE INH 0.5 MG/2 ML AMPUL.NEB IH SCH ×2 (08:47→21:00)
[2017-02-04] MEDS: NAPROXEN 500 MG TABLET PO PRN (13:58)
[2017-02-04] MEDS: INSULIN LISPRO/ASPART 100 UNIT/ML CARTRIDGE SQ PRN (17:19)
--- NOTE | 2017-02-04 18:24 | NUR ---
RESIDENT COMPLAINED OF HAVING PAIN AROUND 1345, REQUESTED NAPROXEN, GIVEN AT 1358 PO. RE-ASSESSED PAIN AT 1500 DENIES TO HAVE PAIN AT THIS TIME. MEDICINE EFFECTIVE, WILL CONTINUE TO MONITOR.
[2017-02-04 19:51] VITALS: BP 134/84
[2017-02-04] MEDS: ASCORBIC ACID 500 MG TABLET PO SCH (21:11)
[2017-02-04] MEDS: DOCUSATE SODIUM 100 MG CAPSULE PO SCH (21:11)
[2017-02-04] MEDS: GABAPENTIN 100 MG CAPSULE PO SCH (21:12)
[2017-02-04] MEDS: [UNRECOGNIZED DRUG - OTHER] TP SCH (21:12)
[2017-02-04] MEDS: MONTELUKAST SODIUM (10MG) 10 MG TABLET PO SCH (21:12)
[2017-02-05] MEDS: ALBUTEROL FS 2.5 MG/3 ML VIAL.NEB NEB SCH ×4 (01:53→19:59)
[2017-02-05] MEDS: IPRATROPIUM NEB FS 0.5 MG/2.5 ML AMPUL.NEB IH SCH ×4 (01:53→19:59)
[2017-02-05] MEDS: PANTOPRAZOLE 40 MG TABLET.DR PO SCH (05:51)
[2017-02-05] MEDS: BLOOD SUGAR DIAGNOSTIC 1 EACH STRIP VI SCH ×3 (06:37→17:42)
[2017-02-05 07:58] VITALS: BP 149/92
[2017-02-05] MEDS: BUDESONIDE RESPULE INH 0.5 MG/2 ML AMPUL.NEB IH SCH ×2 (08:12→20:26)
[2017-02-05] MEDS: GLYCOPYRROLATE 1 MG TABLET PO SCH ×2 (08:32→21:06)
[2017-02-05] MEDS: predniSONE 10 MG TABLET PO SCH (08:32)
[2017-02-05] MEDS: SERTRALINE HCL 25 MG TABLET PO SCH (08:32)
[2017-02-05] MEDS: SITAGLIPTIN PHOSPHATE 25 MG TABLET PO SCH (08:32)
[2017-02-05] MEDS: POLYVINYL ALCOHOL 15 ML BOTTLE EACHEYE SCH ×4 (08:32→21:06)
[2017-02-05] MEDS: PROSOURCE / PROSTAT (PYXIS) 30 ML UDC PO SCH ×3 (08:32→17:00)
[2017-02-05] MEDS: VIT B CMPLX 3/FA/VIT C/BIOTIN 1 TAB TABLET PO SCH (08:32)
[2017-02-05] MEDS: HEPARIN SODIUM, PORCINE 5000 UNITS/1 ML VIAL SQ SCH ×2 (08:33→21:06)
[2017-02-05] MEDS: MINERAL OIL/PETROL OINT 396 GM JAR TP SCH ×2 (08:33→21:06)
[2017-02-05] MEDS: INSULIN LISPRO/ASPART 100 UNIT/ML CARTRIDGE SQ PRN ×2 (12:23→17:44)
[2017-02-05] MEDS: NAPROXEN 500 MG TABLET PO PRN (12:43)
--- NOTE | 2017-02-05 15:08 | NUR ---
Resident has a new roommate. Notification of new roommate was placed into the resident's chart.
[2017-02-05] MEDS: HYDROGEN PEROXIDE 480 ML BOTTLE TP SCH ×2 (17:40→21:06)
[2017-02-05] MEDS: ZINC OXIDE 56.7 GM TUBE TP SCH ×2 (17:42→21:07)
--- NOTE | 2017-02-05 19:04 | NUR ---
Patient being banging the side table to call the nurse. Educated the patient how to use the call light and instructed not to bang the table. made him assure that we will response his call light as soon as possible. He agreed with using the call light.
--- NOTE | 2017-02-05 20:00 | NUR ---
Pt have tea colored urine @ 100cc.Will report to MD in AM.
[2017-02-05 20:05] VITALS: BP 131/87
[2017-02-05] MEDS: DOCUSATE SODIUM 100 MG CAPSULE PO SCH (21:06)
[2017-02-05] MEDS: ASCORBIC ACID 500 MG TABLET PO SCH (21:06)
[2017-02-05] MEDS: [UNRECOGNIZED DRUG - OTHER] TP SCH (21:07)
[2017-02-05] MEDS: TEMAZEPAM 7.5 MG CAPSULE PO SCH (21:07)
[2017-02-05] MEDS: GABAPENTIN 100 MG CAPSULE PO SCH (21:07)
[2017-02-05] MEDS: MONTELUKAST SODIUM (10MG) 10 MG TABLET PO SCH (21:07)
[2017-02-05] MEDS: GUAIFENESIN/D-METHORPHAN HB 5 ML UDC PO PRN (21:14)
[2017-02-05] MEDS: ATARAX 25 MG PO PRN (21:15)
[2017-02-06] MEDS: IPRATROPIUM NEB FS 0.5 MG/2.5 ML AMPUL.NEB IH SCH ×4 (02:12→19:30)
[2017-02-06] MEDS: ALBUTEROL FS 2.5 MG/3 ML VIAL.NEB NEB SCH ×4 (02:12→19:30)
[2017-02-06] MEDS: PANTOPRAZOLE 40 MG TABLET.DR PO SCH (05:38)
[2017-02-06] MEDS: INSULIN LISPRO/ASPART 100 UNIT/ML CARTRIDGE SQ PRN ×2 (06:50→13:38)
[2017-02-06] MEDS: BLOOD SUGAR DIAGNOSTIC 1 EACH STRIP VI SCH ×3 (06:50→16:56)
[2017-02-06] MEDS: BUDESONIDE RESPULE INH 0.5 MG/2 ML AMPUL.NEB IH SCH ×2 (08:07→21:00)
[2017-02-06] MEDS: PROSOURCE / PROSTAT (PYXIS) 30 ML UDC PO SCH ×3 (08:52→16:56)
[2017-02-06] MEDS: VIT B CMPLX 3/FA/VIT C/BIOTIN 1 TAB TABLET PO SCH (08:52)
[2017-02-06] MEDS: GLYCOPYRROLATE 1 MG TABLET PO SCH ×2 (08:52→21:16)
[2017-02-06] MEDS: POLYVINYL ALCOHOL 15 ML BOTTLE EACHEYE SCH ×4 (08:52→21:12)
[2017-02-06] MEDS: SERTRALINE HCL 25 MG TABLET PO SCH (08:52)
[2017-02-06] MEDS: SITAGLIPTIN PHOSPHATE 25 MG TABLET PO SCH (08:52)
[2017-02-06] MEDS: HYDROGEN PEROXIDE 480 ML BOTTLE TP SCH ×2 (08:55→21:17)
[2017-02-06] MEDS: ZINC OXIDE 56.7 GM TUBE TP SCH ×2 (08:55→21:17)
[2017-02-06] MEDS: NAPROXEN 500 MG TABLET PO PRN (08:55)
[2017-02-06] MEDS: MINERAL OIL/PETROL OINT 396 GM JAR TP SCH ×2 (08:55→21:17)
[2017-02-06] MEDS: GUAIFENESIN/D-METHORPHAN HB 5 ML UDC PO PRN ×2 (08:55→21:16)
[2017-02-06] MEDS: HEPARIN SODIUM, PORCINE 5000 UNITS/1 ML VIAL SQ SCH ×2 (08:55→21:17)
[2017-02-06 09:00] VITALS: BP 123/75
[2017-02-06] MEDS: DOCUSATE SODIUM 100 MG CAPSULE PO SCH (21:13)
[2017-02-06] MEDS: ATARAX 25 MG PO PRN (21:16)
[2017-02-06] MEDS: ASCORBIC ACID 500 MG TABLET PO SCH (21:16)
[2017-02-06] MEDS: GABAPENTIN 100 MG CAPSULE PO SCH (21:17)
[2017-02-06] MEDS: MONTELUKAST SODIUM (10MG) 10 MG TABLET PO SCH (21:18)
[2017-02-06] MEDS: TEMAZEPAM 7.5 MG CAPSULE PO SCH (21:18)
[2017-02-06] MEDS: [UNRECOGNIZED DRUG - OTHER] TP SCH (21:20)
[2017-02-07] MEDS: IPRATROPIUM NEB FS 0.5 MG/2.5 ML AMPUL.NEB IH SCH ×4 (01:52→20:28)
[2017-02-07] MEDS: ALBUTEROL FS 2.5 MG/3 ML VIAL.NEB NEB SCH ×4 (01:52→20:28)
[2017-02-07] MEDS: PANTOPRAZOLE 40 MG TABLET.DR PO SCH (06:21)
[2017-02-07] MEDS: BLOOD SUGAR DIAGNOSTIC 1 EACH STRIP VI SCH ×3 (06:40→17:06)
[2017-02-07] MEDS: BUDESONIDE RESPULE INH 0.5 MG/2 ML AMPUL.NEB IH SCH ×2 (07:58→20:28)
[2017-02-07] MEDS: VIT B CMPLX 3/FA/VIT C/BIOTIN 1 TAB TABLET PO SCH (08:56)
[2017-02-07] MEDS: predniSONE 10 MG TABLET PO SCH (08:56)
[2017-02-07] MEDS: SERTRALINE HCL 25 MG TABLET PO SCH (08:56)
[2017-02-07] MEDS: SITAGLIPTIN PHOSPHATE 25 MG TABLET PO SCH (08:56)
[2017-02-07] MEDS: GLYCOPYRROLATE 1 MG TABLET PO SCH ×2 (08:56→21:12)
[2017-02-07] MEDS: PROSOURCE / PROSTAT (PYXIS) 30 ML UDC PO SCH ×3 (08:56→17:00)
[2017-02-07] MEDS: POLYVINYL ALCOHOL 15 ML BOTTLE EACHEYE SCH ×4 (08:56→21:12)
[2017-02-07] MEDS: HEPARIN SODIUM, PORCINE 5000 UNITS/1 ML VIAL SQ SCH ×2 (08:57→21:13)
[2017-02-07] MEDS: HYDROGEN PEROXIDE 480 ML BOTTLE TP SCH ×2 (08:57→21:13)
[2017-02-07] MEDS: ZINC OXIDE 56.7 GM TUBE TP SCH ×2 (08:57→21:13)
[2017-02-07] MEDS: MINERAL OIL/PETROL OINT 396 GM JAR TP SCH ×2 (08:57→21:13)
[2017-02-07] MEDS: GUAIFENESIN/D-METHORPHAN HB 5 ML UDC PO PRN (08:59)
[2017-02-07] MEDS: NAPROXEN 500 MG TABLET PO PRN ×2 (08:59→20:20)
--- NOTE | 2017-02-07 09:07 | NUR ---
Social Service Section of MDS assessment (annual) completed. Resident is alert and communicative. His brother, Aly is his primary men's and boys' clothing salesperson and payee and tries to visit on a monthly basis. Resident was seen by the poker manager (Dr Justin Chappell, DPMan) on 01/31/2017, the dentist Dr. Dougherty on 07/22/2016 for his annual dental cleaning and water maintenance supervisor Dr. Wagner on 06/20/2016 for his yearly exam.
[2017-02-07] MEDS: INSULIN LISPRO/ASPART 100 UNIT/ML CARTRIDGE SQ PRN ×2 (11:53→17:06)
--- NOTE | 2017-02-07 13:50 | NUR ---
INTERDISCIPLINARY TEAM CONFERENCE (IDT) was held today. Resident's brother unable to attend. Dr. Gardner and the interdisciplinary team reviewed the current plan of care in detail. New orders were reviewed. Resident's PPD results are negative. He has a 5lb weight loss according to dietary but per Dr. Gardner this is because he is being dialyzed more aggressively. No new orders were given.
[2017-02-07] MEDS: ATARAX 25 MG PO PRN (20:21)
[2017-02-07] MEDS: ASCORBIC ACID 500 MG TABLET PO SCH (21:12)
[2017-02-07] MEDS: DOCUSATE SODIUM 100 MG CAPSULE PO SCH (21:12)
[2017-02-07] MEDS: TEMAZEPAM 7.5 MG CAPSULE PO SCH (21:13)
[2017-02-07] MEDS: MONTELUKAST SODIUM (10MG) 10 MG TABLET PO SCH (21:13)
[2017-02-07] MEDS: GABAPENTIN 100 MG CAPSULE PO SCH (21:13)
[2017-02-07] MEDS: [UNRECOGNIZED DRUG - OTHER] TP SCH (21:13)
[2017-02-07 23:27] VITALS: BP 145/95
[2017-02-08] MEDS: IPRATROPIUM NEB FS 0.5 MG/2.5 ML AMPUL.NEB IH SCH ×4 (01:09→20:41)
[2017-02-08] MEDS: ALBUTEROL FS 2.5 MG/3 ML VIAL.NEB NEB SCH ×4 (01:09→20:41)
[2017-02-08] MEDS: PANTOPRAZOLE 40 MG TABLET.DR PO SCH (05:48)
[2017-02-08] MEDS: BLOOD SUGAR DIAGNOSTIC 1 EACH STRIP VI SCH ×3 (07:01→17:10)
[2017-02-08] MEDS: INSULIN LISPRO/ASPART 100 UNIT/ML CARTRIDGE SQ PRN ×2 (07:01→14:02)
[2017-02-08 08:12] VITALS: BP 152/91
[2017-02-08] MEDS: BUDESONIDE RESPULE INH 0.5 MG/2 ML AMPUL.NEB IH SCH ×2 (08:12→20:41)
[2017-02-08] MEDS: GLYCOPYRROLATE 1 MG TABLET PO SCH ×2 (08:47→21:00)
[2017-02-08] MEDS: POLYVINYL ALCOHOL 15 ML BOTTLE EACHEYE SCH ×4 (08:47→21:01)
[2017-02-08] MEDS: ZINC OXIDE 56.7 GM TUBE TP SCH ×2 (08:48→21:01)
[2017-02-08] MEDS: VIT B CMPLX 3/FA/VIT C/BIOTIN 1 TAB TABLET PO SCH (08:48)
[2017-02-08] MEDS: SITAGLIPTIN PHOSPHATE 25 MG TABLET PO SCH (08:48)
[2017-02-08] MEDS: SERTRALINE HCL 25 MG TABLET PO SCH (08:48)
[2017-02-08] MEDS: PROSOURCE / PROSTAT (PYXIS) 30 ML UDC PO SCH ×3 (08:48→17:00)
[2017-02-08] MEDS: HYDROGEN PEROXIDE 480 ML BOTTLE TP SCH ×2 (08:48→21:01)
[2017-02-08] MEDS: MINERAL OIL/PETROL OINT 396 GM JAR TP SCH ×2 (08:48→21:01)
[2017-02-08] MEDS: HEPARIN SODIUM, PORCINE 5000 UNITS/1 ML VIAL SQ SCH ×2 (08:48→21:01)
[2017-02-08] MEDS: GUAIFENESIN/D-METHORPHAN HB 5 ML UDC PO PRN ×2 (08:50→21:02)
[2017-02-08] MEDS: NAPROXEN 500 MG TABLET PO PRN ×2 (08:50→21:02)
[2017-02-08] MEDS: TRAMADOL HCL 50 MG TABLET PO PRN (14:01)
[2017-02-08 19:38] VITALS: BP 144/86
[2017-02-08] MEDS: TEMAZEPAM 7.5 MG CAPSULE PO SCH (21:01)
[2017-02-08] MEDS: GABAPENTIN 100 MG CAPSULE PO SCH (21:01)
[2017-02-08] MEDS: DOCUSATE SODIUM 100 MG CAPSULE PO SCH (21:01)
[2017-02-08] MEDS: ASCORBIC ACID 500 MG TABLET PO SCH (21:01)
[2017-02-08] MEDS: [UNRECOGNIZED DRUG - OTHER] TP SCH (21:02)
[2017-02-08] MEDS: MONTELUKAST SODIUM (10MG) 10 MG TABLET PO SCH (21:02)
[2017-02-09] MEDS: IPRATROPIUM NEB FS 0.5 MG/2.5 ML AMPUL.NEB IH SCH ×4 (02:07→20:09)
[2017-02-09] MEDS: ALBUTEROL FS 2.5 MG/3 ML VIAL.NEB NEB SCH ×4 (02:08→20:09)
[2017-02-09] MEDS: INSULIN LISPRO/ASPART 100 UNIT/ML CARTRIDGE SQ PRN ×2 (06:38→11:34)
[2017-02-09] MEDS: BLOOD SUGAR DIAGNOSTIC 1 EACH STRIP VI SCH ×3 (06:38→17:08)
[2017-02-09] MEDS: PANTOPRAZOLE 40 MG TABLET.DR PO SCH (06:38)
[2017-02-09] MEDS: BUDESONIDE RESPULE INH 0.5 MG/2 ML AMPUL.NEB IH SCH ×2 (08:16→20:09)
[2017-02-09 08:47] VITALS: BP 136/88
[2017-02-09] MEDS: POLYVINYL ALCOHOL 15 ML BOTTLE EACHEYE SCH ×4 (09:34→21:52)
[2017-02-09] MEDS: SERTRALINE HCL 25 MG TABLET PO SCH (09:35)
[2017-02-09] MEDS: predniSONE 10 MG TABLET PO SCH (09:35)
[2017-02-09] MEDS: SITAGLIPTIN PHOSPHATE 25 MG TABLET PO SCH (09:35)
[2017-02-09] MEDS: GLYCOPYRROLATE 1 MG TABLET PO SCH ×2 (09:35→21:52)
[2017-02-09] MEDS: HYDROGEN PEROXIDE 480 ML BOTTLE TP SCH ×2 (09:36→21:52)
[2017-02-09] MEDS: MINERAL OIL/PETROL OINT 396 GM JAR TP SCH ×2 (09:36→21:52)
[2017-02-09] MEDS: ZINC OXIDE 56.7 GM TUBE TP SCH ×2 (09:36→21:52)
[2017-02-09] MEDS: PROSOURCE / PROSTAT (PYXIS) 30 ML UDC PO SCH ×3 (09:36→17:00)
[2017-02-09] MEDS: HEPARIN SODIUM, PORCINE 5000 UNITS/1 ML VIAL SQ SCH ×2 (09:42→21:52)
[2017-02-09] MEDS: GUAIFENESIN/D-METHORPHAN HB 5 ML UDC PO PRN (09:43)
[2017-02-09] MEDS: VIT B CMPLX 3/FA/VIT C/BIOTIN 1 TAB TABLET PO SCH (09:44)
[2017-02-09 19:44] VITALS: BP 141/92
[2017-02-09] MEDS: TEMAZEPAM 7.5 MG CAPSULE PO SCH (21:52)
[2017-02-09] MEDS: [UNRECOGNIZED DRUG - OTHER] TP SCH (21:52)
[2017-02-09] MEDS: ASCORBIC ACID 500 MG TABLET PO SCH (21:52)
[2017-02-09] MEDS: GABAPENTIN 100 MG CAPSULE PO SCH (21:52)
[2017-02-09] MEDS: DOCUSATE SODIUM 100 MG CAPSULE PO SCH (21:52)
[2017-02-09] MEDS: MONTELUKAST SODIUM (10MG) 10 MG TABLET PO SCH (21:52)
[2017-02-09] MEDS: NAPROXEN 500 MG TABLET PO PRN (23:35)
[2017-02-10] MEDS: ALBUTEROL FS 2.5 MG/3 ML VIAL.NEB NEB SCH ×4 (02:19→19:41)
[2017-02-10] MEDS: IPRATROPIUM NEB FS 0.5 MG/2.5 ML AMPUL.NEB IH SCH ×4 (02:19→19:41)
[2017-02-10] MEDS: PANTOPRAZOLE 40 MG TABLET.DR PO SCH (06:52)
[2017-02-10] MEDS: BLOOD SUGAR DIAGNOSTIC 1 EACH STRIP VI SCH ×3 (06:52→16:38)
[2017-02-10] MEDS: INSULIN LISPRO/ASPART 100 UNIT/ML CARTRIDGE SQ PRN ×3 (06:52→16:39)
[2017-02-10] MEDS: BUDESONIDE RESPULE INH 0.5 MG/2 ML AMPUL.NEB IH SCH ×2 (08:10→19:41)
[2017-02-10 08:16] VITALS: BP 155/102
[2017-02-10] MEDS: SERTRALINE HCL 25 MG TABLET PO SCH (08:21)
[2017-02-10] MEDS: POLYVINYL ALCOHOL 15 ML BOTTLE EACHEYE SCH ×4 (08:21→21:21)
[2017-02-10] MEDS: VIT B CMPLX 3/FA/VIT C/BIOTIN 1 TAB TABLET PO SCH (08:21)
[2017-02-10] MEDS: SITAGLIPTIN PHOSPHATE 25 MG TABLET PO SCH (08:21)
[2017-02-10] MEDS: GLYCOPYRROLATE 1 MG TABLET PO SCH ×2 (08:21→21:21)
[2017-02-10] MEDS: MINERAL OIL/PETROL OINT 396 GM JAR TP SCH ×2 (08:31→21:21)
[2017-02-10] MEDS: HEPARIN SODIUM, PORCINE 5000 UNITS/1 ML VIAL SQ SCH ×2 (08:31→21:21)
[2017-02-10 08:32] VITALS: BP 155/102
[2017-02-10] MEDS: CLONIDINE HCL 0.1 MG TABLET PO PRN (08:32)
[2017-02-10] MEDS: PROSOURCE / PROSTAT (PYXIS) 30 ML UDC PO SCH ×3 (08:33→16:38)
[2017-02-10] MEDS: GUAIFENESIN/D-METHORPHAN HB 5 ML UDC PO PRN ×2 (08:34→21:22)
[2017-02-10] MEDS: ZINC OXIDE 56.7 GM TUBE TP SCH ×2 (09:00→21:21)
[2017-02-10] MEDS: HYDROGEN PEROXIDE 480 ML BOTTLE TP SCH ×2 (09:00→21:21)
[2017-02-10 09:32] VITALS: BP 136/78
[2017-02-10] MEDS: BISACODYL SUPP (10 MG) 10 MG/SUPP.RECT SUPP.RECT RC PRN (15:34)
[2017-02-10 19:45] VITALS: BP 139/90
[2017-02-10] MEDS: MONTELUKAST SODIUM (10MG) 10 MG TABLET PO SCH (21:21)
[2017-02-10] MEDS: DOCUSATE SODIUM 100 MG CAPSULE PO SCH (21:21)
[2017-02-10] MEDS: GABAPENTIN 100 MG CAPSULE PO SCH (21:21)
[2017-02-10] MEDS: [UNRECOGNIZED DRUG - OTHER] TP SCH (21:21)
[2017-02-10] MEDS: TEMAZEPAM 7.5 MG CAPSULE PO SCH (21:21)
[2017-02-10] MEDS: ASCORBIC ACID 500 MG TABLET PO SCH (21:21)
[2017-02-11] MEDS: IPRATROPIUM NEB FS 0.5 MG/2.5 ML AMPUL.NEB IH SCH ×4 (01:58→19:30)
[2017-02-11] MEDS: ALBUTEROL FS 2.5 MG/3 ML VIAL.NEB NEB SCH ×4 (01:58→19:30)
[2017-02-11] MEDS: PANTOPRAZOLE 40 MG TABLET.DR PO SCH (06:04)
[2017-02-11] MEDS: BUDESONIDE RESPULE INH 0.5 MG/2 ML AMPUL.NEB IH SCH ×3 (07:53→20:55)
[2017-02-11 07:54] VITALS: BP 143/87
[2017-02-11] MEDS: predniSONE 10 MG TABLET PO SCH (08:14)
[2017-02-11] MEDS: PROSOURCE / PROSTAT (PYXIS) 30 ML UDC PO SCH ×3 (08:14→17:01)
[2017-02-11] MEDS: GLYCOPYRROLATE 1 MG TABLET PO SCH ×2 (08:14→21:34)
[2017-02-11] MEDS: VIT B CMPLX 3/FA/VIT C/BIOTIN 1 TAB TABLET PO SCH (08:14)
[2017-02-11] MEDS: BLOOD SUGAR DIAGNOSTIC 1 EACH STRIP VI SCH ×3 (08:14→17:01)
[2017-02-11] MEDS: POLYVINYL ALCOHOL 15 ML BOTTLE EACHEYE SCH ×4 (08:14→21:34)
[2017-02-11] MEDS: GUAIFENESIN/D-METHORPHAN HB 5 ML UDC PO PRN ×2 (08:14→21:36)
[2017-02-11] MEDS: SERTRALINE HCL 25 MG TABLET PO SCH (08:14)
[2017-02-11] MEDS: SITAGLIPTIN PHOSPHATE 25 MG TABLET PO SCH (08:14)
[2017-02-11] MEDS: HYDROGEN PEROXIDE 480 ML BOTTLE TP SCH ×2 (08:15→21:35)
[2017-02-11] MEDS: HEPARIN SODIUM, PORCINE 5000 UNITS/1 ML VIAL SQ SCH ×2 (08:15→21:34)
[2017-02-11] MEDS: ZINC OXIDE 56.7 GM TUBE TP SCH ×2 (08:15→21:35)
[2017-02-11] MEDS: MINERAL OIL/PETROL OINT 396 GM JAR TP SCH ×2 (08:15→21:35)
[2017-02-11] MEDS: INSULIN LISPRO/ASPART 100 UNIT/ML CARTRIDGE SQ PRN (17:02)
[2017-02-11 20:11] VITALS: BP 141/91
[2017-02-11] MEDS: DOCUSATE SODIUM 100 MG CAPSULE PO SCH (21:34)
[2017-02-11] MEDS: ASCORBIC ACID 500 MG TABLET PO SCH (21:34)
[2017-02-11] MEDS: TEMAZEPAM 7.5 MG CAPSULE PO SCH (21:35)
[2017-02-11] MEDS: GABAPENTIN 100 MG CAPSULE PO SCH (21:35)
[2017-02-11] MEDS: MONTELUKAST SODIUM (10MG) 10 MG TABLET PO SCH (21:35)
[2017-02-11] MEDS: [UNRECOGNIZED DRUG - OTHER] TP SCH (21:35)
[2017-02-12] MEDS: IPRATROPIUM NEB FS 0.5 MG/2.5 ML AMPUL.NEB IH SCH ×4 (01:46→19:17)
[2017-02-12] MEDS: ALBUTEROL FS 2.5 MG/3 ML VIAL.NEB NEB SCH ×4 (01:46→19:17)
[2017-02-12] MEDS: PANTOPRAZOLE 40 MG TABLET.DR PO SCH (06:13)
[2017-02-12] MEDS: BLOOD SUGAR DIAGNOSTIC 1 EACH STRIP VI SCH ×3 (07:43→17:19)
[2017-02-12] MEDS: INSULIN LISPRO/ASPART 100 UNIT/ML CARTRIDGE SQ PRN ×3 (07:44→17:20)
[2017-02-12] MEDS: TRAMADOL HCL 50 MG TABLET PO PRN ×2 (07:47→21:48)
[2017-02-12] MEDS: MINERAL OIL/PETROL OINT 396 GM JAR TP SCH ×2 (08:08→21:38)
[2017-02-12] MEDS: GLYCOPYRROLATE 1 MG TABLET PO SCH ×2 (08:08→21:38)
[2017-02-12] MEDS: VIT B CMPLX 3/FA/VIT C/BIOTIN 1 TAB TABLET PO SCH (08:08)
[2017-02-12] MEDS: SITAGLIPTIN PHOSPHATE 25 MG TABLET PO SCH (08:08)
[2017-02-12] MEDS: POLYVINYL ALCOHOL 15 ML BOTTLE EACHEYE SCH ×4 (08:08→21:38)
[2017-02-12] MEDS: SERTRALINE HCL 25 MG TABLET PO SCH (08:09)
[2017-02-12] MEDS: PROSOURCE / PROSTAT (PYXIS) 30 ML UDC PO SCH ×3 (08:09→17:19)
[2017-02-12] MEDS: HEPARIN SODIUM, PORCINE 5000 UNITS/1 ML VIAL SQ SCH ×2 (08:09→21:38)
[2017-02-12 08:16] VITALS: BP 142/112
[2017-02-12] MEDS: BUDESONIDE RESPULE INH 0.5 MG/2 ML AMPUL.NEB IH SCH (08:18)
[2017-02-12] MEDS: HYDROGEN PEROXIDE 480 ML BOTTLE TP SCH ×2 (17:18→21:39)
[2017-02-12] MEDS: ZINC OXIDE 56.7 GM TUBE TP SCH ×2 (17:19→21:39)
[2017-02-12 19:53] VITALS: BP 140/87
[2017-02-12] MEDS: DOCUSATE SODIUM 100 MG CAPSULE PO SCH (21:38)
[2017-02-12] MEDS: ASCORBIC ACID 500 MG TABLET PO SCH (21:38)
[2017-02-12] MEDS: MONTELUKAST SODIUM (10MG) 10 MG TABLET PO SCH (21:39)
[2017-02-12] MEDS: TEMAZEPAM 7.5 MG CAPSULE PO SCH (21:39)
[2017-02-12] MEDS: GABAPENTIN 100 MG CAPSULE PO SCH (21:39)
[2017-02-12] MEDS: [UNRECOGNIZED DRUG - OTHER] TP SCH (21:39)
[2017-02-12] MEDS: GUAIFENESIN/D-METHORPHAN HB 5 ML UDC PO PRN (21:39)
[2017-02-13] MEDS: ALBUTEROL FS 2.5 MG/3 ML VIAL.NEB NEB SCH ×4 (02:04→19:21)
[2017-02-13] MEDS: IPRATROPIUM NEB FS 0.5 MG/2.5 ML AMPUL.NEB IH SCH ×4 (02:04→19:21)
[2017-02-13] MEDS: PANTOPRAZOLE 40 MG TABLET.DR PO SCH (06:01)
[2017-02-13 07:41] VITALS: BP 137/85
[2017-02-13] MEDS: BUDESONIDE RESPULE INH 0.5 MG/2 ML AMPUL.NEB IH SCH ×2 (08:09→21:43)
[2017-02-13] MEDS: BLOOD SUGAR DIAGNOSTIC 1 EACH STRIP VI SCH ×3 (08:41→18:16)
[2017-02-13] MEDS: POLYVINYL ALCOHOL 15 ML BOTTLE EACHEYE SCH ×4 (08:44→21:13)
[2017-02-13] MEDS: GLYCOPYRROLATE 1 MG TABLET PO SCH ×2 (08:45→21:00)
[2017-02-13] MEDS: SITAGLIPTIN PHOSPHATE 25 MG TABLET PO SCH (08:45)
[2017-02-13] MEDS: predniSONE 10 MG TABLET PO SCH (08:47)
[2017-02-13] MEDS: MINERAL OIL/PETROL OINT 396 GM JAR TP SCH ×2 (08:47→21:14)
[2017-02-13] MEDS: PROSOURCE / PROSTAT (PYXIS) 30 ML UDC PO SCH ×3 (08:47→17:00)
[2017-02-13] MEDS: SERTRALINE HCL 25 MG TABLET PO SCH (08:47)
[2017-02-13] MEDS: HYDROGEN PEROXIDE 480 ML BOTTLE TP SCH ×2 (08:48→21:14)
[2017-02-13] MEDS: ZINC OXIDE 56.7 GM TUBE TP SCH ×2 (08:48→21:14)
[2017-02-13] MEDS: VIT B CMPLX 3/FA/VIT C/BIOTIN 1 TAB TABLET PO SCH (08:55)
[2017-02-13] MEDS: GUAIFENESIN/D-METHORPHAN HB 5 ML UDC PO PRN ×2 (09:00→21:15)
[2017-02-13] MEDS: HEPARIN SODIUM, PORCINE 5000 UNITS/1 ML VIAL SQ SCH ×2 (09:12→21:14)
[2017-02-13] MEDS: INSULIN LISPRO/ASPART 100 UNIT/ML CARTRIDGE SQ PRN (18:29)
[2017-02-13 19:39] VITALS: BP 141/80
[2017-02-13] MEDS: DOCUSATE SODIUM 100 MG CAPSULE PO SCH (21:13)
[2017-02-13] MEDS: ASCORBIC ACID 500 MG TABLET PO SCH (21:13)
[2017-02-13] MEDS: [UNRECOGNIZED DRUG - OTHER] TP SCH (21:14)
[2017-02-13] MEDS: MONTELUKAST SODIUM (10MG) 10 MG TABLET PO SCH (21:14)
[2017-02-13] MEDS: GABAPENTIN 100 MG CAPSULE PO SCH (21:14)
[2017-02-13] MEDS: TEMAZEPAM 7.5 MG CAPSULE PO SCH (21:14)
[2017-02-13] MEDS: NAPROXEN 500 MG TABLET PO PRN (21:15)
[2017-02-14] MEDS: IPRATROPIUM NEB FS 0.5 MG/2.5 ML AMPUL.NEB IH SCH ×4 (02:06→20:21)
[2017-02-14] MEDS: ALBUTEROL FS 2.5 MG/3 ML VIAL.NEB NEB SCH ×4 (02:06→20:21)
[2017-02-14] MEDS: PANTOPRAZOLE 40 MG TABLET.DR PO SCH (06:44)
[2017-02-14] MEDS: BLOOD SUGAR DIAGNOSTIC 1 EACH STRIP VI SCH ×3 (06:44→17:23)
[2017-02-14] MEDS: INSULIN LISPRO/ASPART 100 UNIT/ML CARTRIDGE SQ PRN ×2 (06:44→12:19)
[2017-02-14 07:37] VITALS: BP 149/94
[2017-02-14] MEDS: BUDESONIDE RESPULE INH 0.5 MG/2 ML AMPUL.NEB IH SCH ×2 (08:08→20:27)
[2017-02-14] MEDS: GLYCOPYRROLATE 1 MG TABLET PO SCH ×2 (08:14→21:00)
[2017-02-14] MEDS: SITAGLIPTIN PHOSPHATE 25 MG TABLET PO SCH (08:14)
[2017-02-14] MEDS: POLYVINYL ALCOHOL 15 ML BOTTLE EACHEYE SCH ×4 (08:14→21:03)
[2017-02-14] MEDS: PROSOURCE / PROSTAT (PYXIS) 30 ML UDC PO SCH ×3 (08:15→16:31)
[2017-02-14] MEDS: VIT B CMPLX 3/FA/VIT C/BIOTIN 1 TAB TABLET PO SCH (08:15)
[2017-02-14] MEDS: HYDROGEN PEROXIDE 480 ML BOTTLE TP SCH ×2 (08:16→21:02)
[2017-02-14] MEDS: SERTRALINE HCL 25 MG TABLET PO SCH (08:16)
[2017-02-14] MEDS: MINERAL OIL/PETROL OINT 396 GM JAR TP SCH ×2 (08:16→21:02)
[2017-02-14] MEDS: ZINC OXIDE 56.7 GM TUBE TP SCH ×2 (08:16→21:03)
[2017-02-14] MEDS: HEPARIN SODIUM, PORCINE 5000 UNITS/1 ML VIAL SQ SCH ×2 (08:20→21:02)
[2017-02-14] MEDS: BISACODYL SUPP (10 MG) 10 MG/SUPP.RECT SUPP.RECT RC PRN (08:21)
[2017-02-14 20:00] VITALS: BP 135/95
[2017-02-14] MEDS: ASCORBIC ACID 500 MG TABLET PO SCH (21:02)
[2017-02-14] MEDS: DOCUSATE SODIUM 100 MG CAPSULE PO SCH (21:02)
[2017-02-14] MEDS: MONTELUKAST SODIUM (10MG) 10 MG TABLET PO SCH (21:03)
[2017-02-14] MEDS: [UNRECOGNIZED DRUG - OTHER] TP SCH (21:03)
[2017-02-14] MEDS: GABAPENTIN 100 MG CAPSULE PO SCH (21:03)
[2017-02-14] MEDS: TEMAZEPAM 7.5 MG CAPSULE PO SCH (21:03)
[2017-02-14] MEDS: GUAIFENESIN/D-METHORPHAN HB 5 ML UDC PO PRN (21:21)
[2017-02-15] MEDS: ALBUTEROL FS 2.5 MG/3 ML VIAL.NEB NEB SCH ×4 (01:47→19:33)
[2017-02-15] MEDS: IPRATROPIUM NEB FS 0.5 MG/2.5 ML AMPUL.NEB IH SCH ×4 (01:47→19:33)
[2017-02-15] MEDS: PANTOPRAZOLE 40 MG TABLET.DR PO SCH (06:03)
[2017-02-15] MEDS: BLOOD SUGAR DIAGNOSTIC 1 EACH STRIP VI SCH ×3 (06:37→17:08)
[2017-02-15 07:40] VITALS: BP 102/61
[2017-02-15] MEDS: BUDESONIDE RESPULE INH 0.5 MG/2 ML AMPUL.NEB IH SCH ×2 (07:52→20:00)
[2017-02-15] MEDS: GLYCOPYRROLATE 1 MG TABLET PO SCH ×2 (09:00→21:07)
[2017-02-15] MEDS: VIT B CMPLX 3/FA/VIT C/BIOTIN 1 TAB TABLET PO SCH (09:00)
[2017-02-15] MEDS: predniSONE 10 MG TABLET PO SCH (09:00)
[2017-02-15] MEDS: SITAGLIPTIN PHOSPHATE 25 MG TABLET PO SCH (09:00)
[2017-02-15] MEDS: PROSOURCE / PROSTAT (PYXIS) 30 ML UDC PO SCH ×3 (09:00→17:00)
[2017-02-15] MEDS: POLYVINYL ALCOHOL 15 ML BOTTLE EACHEYE SCH ×4 (09:00→21:04)
[2017-02-15] MEDS: SERTRALINE HCL 25 MG TABLET PO SCH (09:01)
[2017-02-15] MEDS: HEPARIN SODIUM, PORCINE 5000 UNITS/1 ML VIAL SQ SCH ×2 (09:02→21:04)
[2017-02-15] MEDS: MINERAL OIL/PETROL OINT 396 GM JAR TP SCH ×2 (09:02→21:04)
[2017-02-15] MEDS: MAG HYDROX/AL HYDROX/SIMETH 30 ML UDC PO PRN (09:07)
[2017-02-15] MEDS: TRAMADOL HCL 50 MG TABLET PO PRN (09:21)
[2017-02-15] MEDS: NAPROXEN 500 MG TABLET PO PRN (13:59)
[2017-02-15] MEDS: HYDROGEN PEROXIDE 480 ML BOTTLE TP SCH ×2 (17:07→21:04)
[2017-02-15] MEDS: ZINC OXIDE 56.7 GM TUBE TP SCH ×2 (17:07→21:05)
[2017-02-15] MEDS: INSULIN LISPRO/ASPART 100 UNIT/ML CARTRIDGE SQ PRN (17:09)
[2017-02-15 19:57] VITALS: BP 133/85
[2017-02-15] MEDS: DOCUSATE SODIUM 100 MG CAPSULE PO SCH (21:04)
[2017-02-15] MEDS: ASCORBIC ACID 500 MG TABLET PO SCH (21:04)
[2017-02-15] MEDS: TEMAZEPAM 7.5 MG CAPSULE PO SCH (21:05)
[2017-02-15] MEDS: MONTELUKAST SODIUM (10MG) 10 MG TABLET PO SCH (21:05)
[2017-02-15] MEDS: GABAPENTIN 100 MG CAPSULE PO SCH (21:05)
[2017-02-15] MEDS: GUAIFENESIN/D-METHORPHAN HB 5 ML UDC PO PRN (21:05)
[2017-02-15] MEDS: [UNRECOGNIZED DRUG - OTHER] TP SCH (21:07)
[2017-02-16] MEDS: ALBUTEROL FS 2.5 MG/3 ML VIAL.NEB NEB SCH ×4 (02:11→19:52)
[2017-02-16] MEDS: IPRATROPIUM NEB FS 0.5 MG/2.5 ML AMPUL.NEB IH SCH ×4 (02:11→19:52)
[2017-02-16] MEDS: PANTOPRAZOLE 40 MG TABLET.DR PO SCH (06:05)
[2017-02-16] MEDS: BLOOD SUGAR DIAGNOSTIC 1 EACH STRIP VI SCH ×3 (06:32→17:37)
[2017-02-16 07:58] VITALS: BP 124/77
[2017-02-16] MEDS: POLYVINYL ALCOHOL 15 ML BOTTLE EACHEYE SCH ×4 (08:23→21:06)
[2017-02-16] MEDS: BUDESONIDE RESPULE INH 0.5 MG/2 ML AMPUL.NEB IH SCH ×2 (08:23→21:00)
[2017-02-16] MEDS: VIT B CMPLX 3/FA/VIT C/BIOTIN 1 TAB TABLET PO SCH (08:28)
[2017-02-16] MEDS: SERTRALINE HCL 25 MG TABLET PO SCH (08:28)
[2017-02-16] MEDS: SITAGLIPTIN PHOSPHATE 25 MG TABLET PO SCH (08:28)
[2017-02-16] MEDS: PROSOURCE / PROSTAT (PYXIS) 30 ML UDC PO SCH ×3 (08:28→17:37)
[2017-02-16] MEDS: HEPARIN SODIUM, PORCINE 5000 UNITS/1 ML VIAL SQ SCH ×2 (08:28→21:06)
[2017-02-16] MEDS: GLYCOPYRROLATE 1 MG TABLET PO SCH ×2 (08:28→21:00)
[2017-02-16] MEDS: HYDROGEN PEROXIDE 480 ML BOTTLE TP SCH ×2 (09:00→21:07)
[2017-02-16] MEDS: ZINC OXIDE 56.7 GM TUBE TP SCH ×2 (09:00→21:07)
[2017-02-16] MEDS: MINERAL OIL/PETROL OINT 396 GM JAR TP SCH ×2 (09:00→21:07)
[2017-02-16] MEDS: INSULIN LISPRO/ASPART 100 UNIT/ML CARTRIDGE SQ PRN (12:17)
[2017-02-16 19:32] VITALS: BP 134/84
[2017-02-16] MEDS: ASCORBIC ACID 500 MG TABLET PO SCH (21:06)
[2017-02-16] MEDS: DOCUSATE SODIUM 100 MG CAPSULE PO SCH (21:06)
[2017-02-16] MEDS: MONTELUKAST SODIUM (10MG) 10 MG TABLET PO SCH (21:07)
[2017-02-16] MEDS: TEMAZEPAM 7.5 MG CAPSULE PO SCH (21:07)
[2017-02-16] MEDS: GABAPENTIN 100 MG CAPSULE PO SCH (21:07)
[2017-02-16] MEDS: [UNRECOGNIZED DRUG - OTHER] TP SCH (21:07)
[2017-02-16] MEDS: NAPROXEN 500 MG TABLET PO PRN (21:08)
[2017-02-16] MEDS: GUAIFENESIN/D-METHORPHAN HB 5 ML UDC PO PRN (21:09)
[2017-02-17] MEDS: ALBUTEROL FS 2.5 MG/3 ML VIAL.NEB NEB SCH ×4 (01:28→19:35)
[2017-02-17] MEDS: IPRATROPIUM NEB FS 0.5 MG/2.5 ML AMPUL.NEB IH SCH ×4 (01:28→19:35)
[2017-02-17] MEDS: PANTOPRAZOLE 40 MG TABLET.DR PO SCH (06:00)
[2017-02-17] MEDS: BLOOD SUGAR DIAGNOSTIC 1 EACH STRIP VI SCH ×3 (06:32→17:38)
[2017-02-17] MEDS: INSULIN LISPRO/ASPART 100 UNIT/ML CARTRIDGE SQ PRN ×3 (06:33→17:39)
[2017-02-17] MEDS: BUDESONIDE RESPULE INH 0.5 MG/2 ML AMPUL.NEB IH SCH ×2 (08:08→20:51)
[2017-02-17 08:09] VITALS: BP 149/76
[2017-02-17] MEDS: POLYVINYL ALCOHOL 15 ML BOTTLE EACHEYE SCH ×4 (08:27→21:02)
[2017-02-17] MEDS: VIT B CMPLX 3/FA/VIT C/BIOTIN 1 TAB TABLET PO SCH (08:28)
[2017-02-17] MEDS: PROSOURCE / PROSTAT (PYXIS) 30 ML UDC PO SCH ×3 (08:28→17:00)
[2017-02-17] MEDS: predniSONE 10 MG TABLET PO SCH (08:28)
[2017-02-17] MEDS: SITAGLIPTIN PHOSPHATE 25 MG TABLET PO SCH (08:28)
[2017-02-17] MEDS: GLYCOPYRROLATE 1 MG TABLET PO SCH ×2 (08:28→21:00)
[2017-02-17] MEDS: SERTRALINE HCL 25 MG TABLET PO SCH (08:28)
[2017-02-17] MEDS: HEPARIN SODIUM, PORCINE 5000 UNITS/1 ML VIAL SQ SCH ×2 (08:29→21:03)
[2017-02-17] MEDS: NAPROXEN 500 MG TABLET PO PRN (08:30)
--- NOTE | 2017-02-17 09:10 | NUR ---
Informed resident that dentist was coming today and asked him if he had any pain or wanted anything for the dentist to look at. Resident stated that he does not have any pain. SW informed him that his annual dental exam and dental cleaning is due in May/June of 2017. He stated that he could wait until that time but does not know if he will be here, as his goal is to go home before that.
--- NOTE | 2017-02-17 14:00 | NUR ---
Seen and examined by Radha Petty NP for Dr. Gardner NNO given.
--- NOTE | 2017-02-17 14:10 | NUR ---
During Radha Petty's rounding, resident reported he is feeling "so so", Radha assessed patient for fluid retention stated she wants to take a look at his weight taken at dialysis center. after reviewing his weight record stated that they need to full more fluids. Endorsed to notify dialysis center , patient is schedule for dialysis tomorrow.
[2017-02-17] MEDS: HYDROGEN PEROXIDE 480 ML BOTTLE TP SCH ×2 (15:11→21:03)
[2017-02-17] MEDS: ZINC OXIDE 56.7 GM TUBE TP SCH ×2 (15:11→21:03)
[2017-02-17] MEDS: MINERAL OIL/PETROL OINT 396 GM JAR TP SCH ×2 (15:11→21:03)
[2017-02-17] MEDS: BISACODYL SUPP (10 MG) 10 MG/SUPP.RECT SUPP.RECT RC PRN (15:12)
[2017-02-17 20:09] VITALS: BP 133/94
[2017-02-17] MEDS: DOCUSATE SODIUM 100 MG CAPSULE PO SCH (21:02)
[2017-02-17] MEDS: [UNRECOGNIZED DRUG - OTHER] TP SCH (21:03)
[2017-02-17] MEDS: MONTELUKAST SODIUM (10MG) 10 MG TABLET PO SCH (21:03)
[2017-02-17] MEDS: GUAIFENESIN/D-METHORPHAN HB 5 ML UDC PO PRN (21:03)
[2017-02-17] MEDS: GABAPENTIN 100 MG CAPSULE PO SCH (21:03)
[2017-02-17] MEDS: ASCORBIC ACID 500 MG TABLET PO SCH (21:03)
[2017-02-17] MEDS: TEMAZEPAM 7.5 MG CAPSULE PO SCH (21:03)
[2017-02-18] MEDS: ALBUTEROL FS 2.5 MG/3 ML VIAL.NEB NEB SCH ×4 (01:19→19:33)
[2017-02-18] MEDS: IPRATROPIUM NEB FS 0.5 MG/2.5 ML AMPUL.NEB IH SCH ×4 (01:19→19:33)
[2017-02-18] MEDS: PANTOPRAZOLE 40 MG TABLET.DR PO SCH (05:44)
[2017-02-18] MEDS: BLOOD SUGAR DIAGNOSTIC 1 EACH STRIP VI SCH ×3 (07:30→17:38)
[2017-02-18 07:38] VITALS: BP 147/97
[2017-02-18] MEDS: BUDESONIDE RESPULE INH 0.5 MG/2 ML AMPUL.NEB IH SCH ×2 (08:21→19:33)
[2017-02-18] MEDS: POLYVINYL ALCOHOL 15 ML BOTTLE EACHEYE SCH ×4 (08:42→21:45)
[2017-02-18] MEDS: GLYCOPYRROLATE 1 MG TABLET PO SCH ×2 (08:42→21:00)
[2017-02-18] MEDS: PROSOURCE / PROSTAT (PYXIS) 30 ML UDC PO SCH ×3 (08:44→17:00)
[2017-02-18] MEDS: SERTRALINE HCL 25 MG TABLET PO SCH (08:44)
[2017-02-18] MEDS: VIT B CMPLX 3/FA/VIT C/BIOTIN 1 TAB TABLET PO SCH (08:44)
[2017-02-18] MEDS: SITAGLIPTIN PHOSPHATE 25 MG TABLET PO SCH (08:44)
[2017-02-18] MEDS: HEPARIN SODIUM, PORCINE 5000 UNITS/1 ML VIAL SQ SCH ×2 (08:45→21:46)
[2017-02-18] MEDS: GUAIFENESIN/D-METHORPHAN HB 5 ML UDC PO PRN ×3 (08:46→21:46)
[2017-02-18] MEDS: ZINC OXIDE 56.7 GM TUBE TP SCH ×2 (09:00→21:46)
[2017-02-18] MEDS: MINERAL OIL/PETROL OINT 396 GM JAR TP SCH ×2 (09:00→21:46)
[2017-02-18] MEDS: HYDROGEN PEROXIDE 480 ML BOTTLE TP SCH ×2 (14:30→21:46)
[2017-02-18 19:30] VITALS: BP 127/90
[2017-02-18] MEDS: DOCUSATE SODIUM 100 MG CAPSULE PO SCH (21:45)
[2017-02-18] MEDS: ASCORBIC ACID 500 MG TABLET PO SCH (21:45)
[2017-02-18] MEDS: TEMAZEPAM 7.5 MG CAPSULE PO SCH (21:46)
[2017-02-18] MEDS: [UNRECOGNIZED DRUG - OTHER] TP SCH (21:46)
[2017-02-18] MEDS: MONTELUKAST SODIUM (10MG) 10 MG TABLET PO SCH (21:46)
[2017-02-18] MEDS: GABAPENTIN 100 MG CAPSULE PO SCH (21:46)
[2017-02-19] MEDS: IPRATROPIUM NEB FS 0.5 MG/2.5 ML AMPUL.NEB IH SCH ×4 (01:49→19:23)
[2017-02-19] MEDS: ALBUTEROL FS 2.5 MG/3 ML VIAL.NEB NEB SCH ×4 (01:49→19:23)
[2017-02-19] MEDS: PANTOPRAZOLE 40 MG TABLET.DR PO SCH (05:56)
[2017-02-19] MEDS: BLOOD SUGAR DIAGNOSTIC 1 EACH STRIP VI SCH ×3 (07:37→17:04)
[2017-02-19 07:49] VITALS: BP 149/83
[2017-02-19] MEDS: predniSONE 10 MG TABLET PO SCH (08:05)
[2017-02-19] MEDS: SERTRALINE HCL 25 MG TABLET PO SCH (08:05)
[2017-02-19] MEDS: SITAGLIPTIN PHOSPHATE 25 MG TABLET PO SCH (08:05)
[2017-02-19] MEDS: POLYVINYL ALCOHOL 15 ML BOTTLE EACHEYE SCH ×4 (08:05→21:20)
[2017-02-19] MEDS: VIT B CMPLX 3/FA/VIT C/BIOTIN 1 TAB TABLET PO SCH (08:05)
[2017-02-19] MEDS: GLYCOPYRROLATE 1 MG TABLET PO SCH ×2 (08:05→21:00)
[2017-02-19] MEDS: PROSOURCE / PROSTAT (PYXIS) 30 ML UDC PO SCH ×3 (08:05→17:04)
[2017-02-19] MEDS: HEPARIN SODIUM, PORCINE 5000 UNITS/1 ML VIAL SQ SCH ×2 (08:11→21:20)
[2017-02-19] MEDS: MINERAL OIL/PETROL OINT 396 GM JAR TP SCH ×2 (08:11→21:20)
[2017-02-19] MEDS: HYDROGEN PEROXIDE 480 ML BOTTLE TP SCH ×2 (08:12→21:20)
[2017-02-19] MEDS: BUDESONIDE RESPULE INH 0.5 MG/2 ML AMPUL.NEB IH SCH ×2 (08:23→21:35)
[2017-02-19] MEDS: ZINC OXIDE 56.7 GM TUBE TP SCH ×2 (09:00→21:20)
[2017-02-19] MEDS: INSULIN LISPRO/ASPART 100 UNIT/ML CARTRIDGE SQ PRN ×2 (12:06→17:05)
[2017-02-19] MEDS: GUAIFENESIN/D-METHORPHAN HB 5 ML UDC PO PRN ×2 (14:37→21:21)
[2017-02-19] MEDS: DOCUSATE SODIUM 100 MG CAPSULE PO SCH (21:20)
[2017-02-19] MEDS: ASCORBIC ACID 500 MG TABLET PO SCH (21:20)
[2017-02-19] MEDS: TEMAZEPAM 7.5 MG CAPSULE PO SCH (21:21)
[2017-02-19] MEDS: [UNRECOGNIZED DRUG - OTHER] TP SCH (21:21)
[2017-02-19] MEDS: GABAPENTIN 100 MG CAPSULE PO SCH (21:21)
[2017-02-19] MEDS: MONTELUKAST SODIUM (10MG) 10 MG TABLET PO SCH (21:21)
[2017-02-20] MEDS: ALBUTEROL FS 2.5 MG/3 ML VIAL.NEB NEB SCH ×4 (01:22→19:18)
[2017-02-20] MEDS: IPRATROPIUM NEB FS 0.5 MG/2.5 ML AMPUL.NEB IH SCH ×4 (01:22→19:18)
[2017-02-20] MEDS: GLYCOPYRROLATE 1 MG TABLET PO SCH ×3 (05:52→21:00)
[2017-02-20] MEDS: PANTOPRAZOLE 40 MG TABLET.DR PO SCH (05:52)
[2017-02-20] MEDS: BLOOD SUGAR DIAGNOSTIC 1 EACH STRIP VI SCH ×3 (07:33→17:38)
[2017-02-20 07:54] VITALS: BP 131/74
[2017-02-20] MEDS: POLYVINYL ALCOHOL 15 ML BOTTLE EACHEYE SCH ×4 (08:06→21:06)
[2017-02-20] MEDS: SERTRALINE HCL 25 MG TABLET PO SCH (08:06)
[2017-02-20] MEDS: SITAGLIPTIN PHOSPHATE 25 MG TABLET PO SCH (08:06)
[2017-02-20] MEDS: PROSOURCE / PROSTAT (PYXIS) 30 ML UDC PO SCH ×3 (08:06→17:38)
[2017-02-20] MEDS: VIT B CMPLX 3/FA/VIT C/BIOTIN 1 TAB TABLET PO SCH (08:06)
[2017-02-20] MEDS: ZINC OXIDE 56.7 GM TUBE TP SCH ×2 (08:07→21:08)
[2017-02-20] MEDS: MINERAL OIL/PETROL OINT 396 GM JAR TP SCH ×2 (08:07→21:07)
[2017-02-20] MEDS: HYDROGEN PEROXIDE 480 ML BOTTLE TP SCH ×2 (08:07→21:08)
[2017-02-20] MEDS: HEPARIN SODIUM, PORCINE 5000 UNITS/1 ML VIAL SQ SCH ×2 (08:07→21:07)
[2017-02-20] MEDS: BUDESONIDE RESPULE INH 0.5 MG/2 ML AMPUL.NEB IH SCH ×2 (08:57→20:29)
[2017-02-20] MEDS: GUAIFENESIN/D-METHORPHAN HB 5 ML UDC PO PRN ×2 (14:29→21:09)
[2017-02-20] MEDS: INSULIN LISPRO/ASPART 100 UNIT/ML CARTRIDGE SQ PRN (17:39)
[2017-02-20 19:55] VITALS: BP 144/95
[2017-02-20] MEDS: NAPROXEN 500 MG TABLET PO PRN (20:16)
[2017-02-20] MEDS: DOCUSATE SODIUM 100 MG CAPSULE PO SCH (21:06)
[2017-02-20] MEDS: ASCORBIC ACID 500 MG TABLET PO SCH (21:06)
[2017-02-20] MEDS: GABAPENTIN 100 MG CAPSULE PO SCH (21:08)
[2017-02-20] MEDS: MONTELUKAST SODIUM (10MG) 10 MG TABLET PO SCH (21:08)
[2017-02-20] MEDS: TEMAZEPAM 7.5 MG CAPSULE PO SCH (21:08)
[2017-02-20] MEDS: [UNRECOGNIZED DRUG - OTHER] TP SCH (21:09)
[2017-02-21] MEDS: ALBUTEROL FS 2.5 MG/3 ML VIAL.NEB NEB SCH ×4 (02:05→20:11)
[2017-02-21] MEDS: IPRATROPIUM NEB FS 0.5 MG/2.5 ML AMPUL.NEB IH SCH ×4 (02:05→20:11)
[2017-02-21] MEDS: GLYCOPYRROLATE 1 MG TABLET PO SCH ×3 (05:00→21:05)
[2017-02-21] MEDS: PANTOPRAZOLE 40 MG TABLET.DR PO SCH (06:00)
[2017-02-21] MEDS: BLOOD SUGAR DIAGNOSTIC 1 EACH STRIP VI SCH ×3 (07:09→17:25)
[2017-02-21] MEDS: INSULIN LISPRO/ASPART 100 UNIT/ML CARTRIDGE SQ PRN ×3 (07:10→17:26)
[2017-02-21] MEDS: BUDESONIDE RESPULE INH 0.5 MG/2 ML AMPUL.NEB IH SCH ×2 (07:30→20:11)
[2017-02-21 07:46] VITALS: BP 146/88
[2017-02-21] MEDS: SERTRALINE HCL 25 MG TABLET PO SCH (08:32)
[2017-02-21] MEDS: SITAGLIPTIN PHOSPHATE 25 MG TABLET PO SCH (08:32)
[2017-02-21] MEDS: VIT B CMPLX 3/FA/VIT C/BIOTIN 1 TAB TABLET PO SCH (08:32)
[2017-02-21] MEDS: PROSOURCE / PROSTAT (PYXIS) 30 ML UDC PO SCH ×3 (08:32→17:25)
[2017-02-21] MEDS: predniSONE 10 MG TABLET PO SCH (08:32)
[2017-02-21] MEDS: POLYVINYL ALCOHOL 15 ML BOTTLE EACHEYE SCH ×4 (08:32→21:05)
[2017-02-21] MEDS: ZINC OXIDE 56.7 GM TUBE TP SCH ×2 (08:33→21:06)
[2017-02-21] MEDS: HYDROGEN PEROXIDE 480 ML BOTTLE TP SCH ×2 (08:33→21:06)
[2017-02-21] MEDS: MINERAL OIL/PETROL OINT 396 GM JAR TP SCH ×2 (08:33→21:06)
[2017-02-21] MEDS: HEPARIN SODIUM, PORCINE 5000 UNITS/1 ML VIAL SQ SCH ×2 (08:33→21:06)
--- NOTE | 2017-02-21 11:00 | NUR ---
Seen by Dr. Chappell, resource analyst with new order to apply triple ATB to L great toe QS x7days. Orders noted and carried out. Addendum: 02/21/17 at 1145 by RUDOLPH OLSEN RN Frequency of order daily instead of QS.
[2017-02-21] MEDS: GUAIFENESIN/D-METHORPHAN HB 5 ML UDC PO PRN ×2 (12:15→21:07)
[2017-02-21 19:57] VITALS: BP 144/92
[2017-02-21] MEDS: ASCORBIC ACID 500 MG TABLET PO SCH (21:05)
[2017-02-21] MEDS: DOCUSATE SODIUM 100 MG CAPSULE PO SCH (21:05)
[2017-02-21] MEDS: [UNRECOGNIZED DRUG - OTHER] TP SCH (21:06)
[2017-02-21] MEDS: TEMAZEPAM 7.5 MG CAPSULE PO SCH (21:06)
[2017-02-21] MEDS: GABAPENTIN 100 MG CAPSULE PO SCH (21:06)
[2017-02-21] MEDS: MONTELUKAST SODIUM (10MG) 10 MG TABLET PO SCH (21:06)
[2017-02-21] MEDS: NAPROXEN 500 MG TABLET PO PRN (21:07)
[2017-02-22] MEDS: IPRATROPIUM NEB FS 0.5 MG/2.5 ML AMPUL.NEB IH SCH ×4 (01:46→20:23)
[2017-02-22] MEDS: ALBUTEROL FS 2.5 MG/3 ML VIAL.NEB NEB SCH ×4 (01:46→20:23)
[2017-02-22] MEDS: GLYCOPYRROLATE 1 MG TABLET PO SCH ×3 (05:49→21:10)
[2017-02-22] MEDS: PANTOPRAZOLE 40 MG TABLET.DR PO SCH (05:49)
[2017-02-22] MEDS: BLOOD SUGAR DIAGNOSTIC 1 EACH STRIP VI SCH ×3 (06:39→17:12)
[2017-02-22] MEDS: INSULIN LISPRO/ASPART 100 UNIT/ML CARTRIDGE SQ PRN (06:39)
[2017-02-22 07:51] VITALS: BP 147/74
[2017-02-22] MEDS: PROSOURCE / PROSTAT (PYXIS) 30 ML UDC PO SCH ×3 (08:05→17:00)
[2017-02-22] MEDS: VIT B CMPLX 3/FA/VIT C/BIOTIN 1 TAB TABLET PO SCH (08:05)
[2017-02-22] MEDS: POLYVINYL ALCOHOL 15 ML BOTTLE EACHEYE SCH ×4 (08:05→21:10)
[2017-02-22] MEDS: SERTRALINE HCL 25 MG TABLET PO SCH (08:05)
[2017-02-22] MEDS: SITAGLIPTIN PHOSPHATE 25 MG TABLET PO SCH (08:05)
[2017-02-22] MEDS: HYDROGEN PEROXIDE 480 ML BOTTLE TP SCH ×2 (08:06→21:10)
[2017-02-22] MEDS: MINERAL OIL/PETROL OINT 396 GM JAR TP SCH ×2 (08:06→21:10)
[2017-02-22] MEDS: HEPARIN SODIUM, PORCINE 5000 UNITS/1 ML VIAL SQ SCH ×2 (08:13→21:10)
[2017-02-22] MEDS: NEOMY SULF/BACITRAC ZN/POLY 15 GM TUBE TP SCH (08:14)
[2017-02-22] MEDS: ZINC OXIDE 56.7 GM TUBE TP SCH ×2 (08:15→21:11)
[2017-02-22] MEDS: ONDANSETRON 4 MG TAB.RAPDIS PO PRN (08:18)
[2017-02-22] MEDS: BUDESONIDE RESPULE INH 0.5 MG/2 ML AMPUL.NEB IH SCH ×2 (08:26→21:01)
--- NOTE | 2017-02-22 09:37 | NUR ---
RN NOTES PATIENT LEFT UNIT VIA GURNEY FOR HEMODIALYSIS IN NO ACUTE SIGNS OF DISTRESS. A/O X3 AND ABLE TO GESTURED NEEDS. V/S CHECKED: BP 147/94MMHG, P 70, R 16, T 97.7F, BS 116 MG/DL AND SP02 100%.
[2017-02-22 13:30] VITALS: BP 134/79
--- NOTE | 2017-02-22 13:51 | NUR ---
RN NOTES PATIENT RETURNED TO UNIT AT 1330H VIA GURNEY ACCOMPANIED BY 2 AMBULANCE STAFF. AWAKE , ALERT AND ORIENTED X3. PT IS STABLE. HD CATHETER ON RCW INTACT WITH DRESSING IN PLACED AND NO ACTIVE BLEEDING NOTED. V/S TAKEN POST HD: 134/79MMHG, P 76, R 18, T 98F AND SP02 99%. CALL LIGHT AND BEDSIDE TABLE PLACED WITHIN REACH OF PT. WILL CONTINUE TO MONITOR.
[2017-02-22] MEDS: GUAIFENESIN/D-METHORPHAN HB 5 ML UDC PO PRN (18:51)
[2017-02-22 19:38] VITALS: BP 139/94
[2017-02-22] MEDS: DOCUSATE SODIUM 100 MG CAPSULE PO SCH (21:10)
[2017-02-22] MEDS: ASCORBIC ACID 500 MG TABLET PO SCH (21:10)
[2017-02-22] MEDS: [UNRECOGNIZED DRUG - OTHER] TP SCH (21:11)
[2017-02-22] MEDS: MONTELUKAST SODIUM (10MG) 10 MG TABLET PO SCH (21:11)
[2017-02-22] MEDS: TEMAZEPAM 7.5 MG CAPSULE PO SCH (21:11)
[2017-02-22] MEDS: GABAPENTIN 100 MG CAPSULE PO SCH (21:11)
[2017-02-23] MEDS: ALBUTEROL FS 2.5 MG/3 ML VIAL.NEB NEB SCH ×4 (01:48→19:31)
[2017-02-23] MEDS: IPRATROPIUM NEB FS 0.5 MG/2.5 ML AMPUL.NEB IH SCH ×4 (01:48→19:31)
[2017-02-23] MEDS: PANTOPRAZOLE 40 MG TABLET.DR PO SCH (05:18)
[2017-02-23] MEDS: GLYCOPYRROLATE 1 MG TABLET PO SCH ×3 (05:18→20:51)
[2017-02-23] MEDS: BLOOD SUGAR DIAGNOSTIC 1 EACH STRIP VI SCH ×3 (06:58→17:14)
[2017-02-23] MEDS: INSULIN LISPRO/ASPART 100 UNIT/ML CARTRIDGE SQ PRN ×2 (06:59→17:16)
[2017-02-23] MEDS: BUDESONIDE RESPULE INH 0.5 MG/2 ML AMPUL.NEB IH SCH ×2 (07:49→21:00)
[2017-02-23 08:00] VITALS: BP 155/98
[2017-02-23] MEDS: predniSONE 10 MG TABLET PO SCH (09:36)
[2017-02-23] MEDS: POLYVINYL ALCOHOL 15 ML BOTTLE EACHEYE SCH ×4 (09:36→20:49)
[2017-02-23] MEDS: SERTRALINE HCL 25 MG TABLET PO SCH (09:36)
[2017-02-23] MEDS: PROSOURCE / PROSTAT (PYXIS) 30 ML UDC PO SCH ×3 (09:36→17:14)
[2017-02-23] MEDS: VIT B CMPLX 3/FA/VIT C/BIOTIN 1 TAB TABLET PO SCH (09:36)
[2017-02-23] MEDS: SITAGLIPTIN PHOSPHATE 25 MG TABLET PO SCH (09:36)
[2017-02-23] MEDS: HYDROGEN PEROXIDE 480 ML BOTTLE TP SCH ×2 (09:37→20:51)
[2017-02-23] MEDS: MINERAL OIL/PETROL OINT 396 GM JAR TP SCH ×2 (09:37→20:51)
[2017-02-23] MEDS: HEPARIN SODIUM, PORCINE 5000 UNITS/1 ML VIAL SQ SCH ×2 (09:37→20:49)
[2017-02-23] MEDS: ZINC OXIDE 56.7 GM TUBE TP SCH ×2 (09:38→20:51)
[2017-02-23] MEDS: NEOMY SULF/BACITRAC ZN/POLY 15 GM TUBE TP SCH (09:38)
[2017-02-23] MEDS: GUAIFENESIN/D-METHORPHAN HB 5 ML UDC PO PRN ×2 (10:04→22:00)
[2017-02-23 19:58] VITALS: BP 121/76
[2017-02-23] MEDS: DOCUSATE SODIUM 100 MG CAPSULE PO SCH (20:50)
[2017-02-23] MEDS: ASCORBIC ACID 500 MG TABLET PO SCH (20:51)
[2017-02-23] MEDS: GABAPENTIN 100 MG CAPSULE PO SCH (21:38)
[2017-02-23] MEDS: [UNRECOGNIZED DRUG - OTHER] TP SCH (21:39)
[2017-02-23] MEDS: MONTELUKAST SODIUM (10MG) 10 MG TABLET PO SCH (21:39)
[2017-02-23] MEDS: TEMAZEPAM 7.5 MG CAPSULE PO SCH (21:39)
[2017-02-24] MEDS: ALBUTEROL FS 2.5 MG/3 ML VIAL.NEB NEB SCH ×4 (01:33→20:03)
[2017-02-24] MEDS: IPRATROPIUM NEB FS 0.5 MG/2.5 ML AMPUL.NEB IH SCH ×4 (01:33→20:03)
[2017-02-24] MEDS: GLYCOPYRROLATE 1 MG TABLET PO SCH ×3 (05:00→21:02)
[2017-02-24] MEDS: PANTOPRAZOLE 40 MG TABLET.DR PO SCH (06:05)
[2017-02-24 08:09] VITALS: BP 143/92
[2017-02-24] MEDS: BUDESONIDE RESPULE INH 0.5 MG/2 ML AMPUL.NEB IH SCH ×2 (08:34→21:03)
[2017-02-24] MEDS: VIT B CMPLX 3/FA/VIT C/BIOTIN 1 TAB TABLET PO SCH (09:48)
[2017-02-24] MEDS: SERTRALINE HCL 25 MG TABLET PO SCH (09:48)
[2017-02-24] MEDS: SITAGLIPTIN PHOSPHATE 25 MG TABLET PO SCH (09:48)
[2017-02-24] MEDS: PROSOURCE / PROSTAT (PYXIS) 30 ML UDC PO SCH ×3 (09:48→17:00)
[2017-02-24] MEDS: POLYVINYL ALCOHOL 15 ML BOTTLE EACHEYE SCH ×4 (09:48→21:00)
[2017-02-24] MEDS: NEOMY SULF/BACITRAC ZN/POLY 15 GM TUBE TP SCH ×2 (09:51→21:05)
[2017-02-24] MEDS: ZINC OXIDE 56.7 GM TUBE TP SCH ×2 (09:51→21:05)
[2017-02-24] MEDS: HEPARIN SODIUM, PORCINE 5000 UNITS/1 ML VIAL SQ SCH ×2 (09:51→21:04)
[2017-02-24] MEDS: HYDROGEN PEROXIDE 480 ML BOTTLE TP SCH ×2 (09:51→21:05)
[2017-02-24] MEDS: MINERAL OIL/PETROL OINT 396 GM JAR TP SCH ×2 (09:51→21:05)
[2017-02-24] MEDS: BLOOD SUGAR DIAGNOSTIC 1 EACH STRIP VI SCH ×2 (12:00→17:15)
[2017-02-24] MEDS: INSULIN LISPRO/ASPART 100 UNIT/ML CARTRIDGE SQ PRN ×2 (13:49→17:17)
--- NOTE | 2017-02-24 16:36 | NUR ---
Found forehead scratches,informed dr.Kashani Berg ordered to initiate treatment as clean with ns,pat dry,apply triple antibiotic Q shift x5days.New orders noted and carried out.
[2017-02-24 19:59] VITALS: BP 146/91
[2017-02-24] MEDS: DOCUSATE SODIUM 100 MG CAPSULE PO SCH (21:00)
[2017-02-24] MEDS: ATARAX 25 MG PO PRN (21:02)
[2017-02-24] MEDS: GUAIFENESIN/D-METHORPHAN HB 5 ML UDC PO PRN (21:02)
[2017-02-24] MEDS: ASCORBIC ACID 500 MG TABLET PO SCH (21:03)
[2017-02-24] MEDS: [UNRECOGNIZED DRUG - OTHER] TP SCH (21:05)
[2017-02-24] MEDS: TEMAZEPAM 7.5 MG CAPSULE PO SCH (21:05)
[2017-02-24] MEDS: GABAPENTIN 100 MG CAPSULE PO SCH (21:05)
[2017-02-24] MEDS: MONTELUKAST SODIUM (10MG) 10 MG TABLET PO SCH (21:05)
[2017-02-25] MEDS: ALBUTEROL FS 2.5 MG/3 ML VIAL.NEB NEB SCH ×4 (01:49→19:20)
[2017-02-25] MEDS: IPRATROPIUM NEB FS 0.5 MG/2.5 ML AMPUL.NEB IH SCH ×4 (01:49→19:20)
[2017-02-25] MEDS: GLYCOPYRROLATE 1 MG TABLET PO SCH ×3 (05:00→21:14)
[2017-02-25] MEDS: PANTOPRAZOLE 40 MG TABLET.DR PO SCH (06:06)
[2017-02-25] MEDS: BLOOD SUGAR DIAGNOSTIC 1 EACH STRIP VI SCH ×3 (06:53→17:09)
[2017-02-25 07:49] VITALS: BP 128/83
[2017-02-25] MEDS: POLYVINYL ALCOHOL 15 ML BOTTLE EACHEYE SCH ×4 (08:40→21:13)
[2017-02-25] MEDS: VIT B CMPLX 3/FA/VIT C/BIOTIN 1 TAB TABLET PO SCH (08:40)
[2017-02-25] MEDS: PROSOURCE / PROSTAT (PYXIS) 30 ML UDC PO SCH ×3 (08:40→17:08)
[2017-02-25] MEDS: predniSONE 10 MG TABLET PO SCH (08:40)
[2017-02-25] MEDS: SERTRALINE HCL 25 MG TABLET PO SCH (08:40)
[2017-02-25] MEDS: SITAGLIPTIN PHOSPHATE 25 MG TABLET PO SCH (08:40)
[2017-02-25] MEDS: HEPARIN SODIUM, PORCINE 5000 UNITS/1 ML VIAL SQ SCH ×2 (08:41→21:13)
[2017-02-25] MEDS: NEOMY SULF/BACITRAC ZN/POLY 15 GM TUBE TP SCH ×3 (08:41→21:15)
[2017-02-25] MEDS: HYDROGEN PEROXIDE 480 ML BOTTLE TP SCH ×2 (08:41→21:15)
[2017-02-25] MEDS: MINERAL OIL/PETROL OINT 396 GM JAR TP SCH ×2 (08:41→21:15)
[2017-02-25] MEDS: ZINC OXIDE 56.7 GM TUBE TP SCH ×2 (08:42→21:15)
[2017-02-25] MEDS: GUAIFENESIN/D-METHORPHAN HB 5 ML UDC PO PRN ×2 (08:44→21:16)
[2017-02-25] MEDS: NAPROXEN 500 MG TABLET PO PRN (08:44)
[2017-02-25] MEDS: BUDESONIDE RESPULE INH 0.5 MG/2 ML AMPUL.NEB IH SCH ×2 (08:59→20:57)
[2017-02-25] MEDS: BISACODYL SUPP (10 MG) 10 MG/SUPP.RECT SUPP.RECT RC PRN (14:57)
[2017-02-25] MEDS: INSULIN LISPRO/ASPART 100 UNIT/ML CARTRIDGE SQ PRN (17:08)
[2017-02-25] MEDS: DOCUSATE SODIUM 100 MG CAPSULE PO SCH (21:12)
[2017-02-25] MEDS: ASCORBIC ACID 500 MG TABLET PO SCH (21:14)
[2017-02-25] MEDS: TEMAZEPAM 7.5 MG CAPSULE PO SCH (21:15)
[2017-02-25] MEDS: MONTELUKAST SODIUM (10MG) 10 MG TABLET PO SCH (21:15)
[2017-02-25] MEDS: GABAPENTIN 100 MG CAPSULE PO SCH (21:15)
[2017-02-25] MEDS: ATARAX 25 MG PO PRN (21:16)
[2017-02-25] MEDS: [UNRECOGNIZED DRUG - OTHER] TP SCH (21:16)
[2017-02-25 21:19] VITALS: BP 133/84
[2017-02-26] MEDS: ALBUTEROL FS 2.5 MG/3 ML VIAL.NEB NEB SCH ×4 (02:09→20:22)
[2017-02-26] MEDS: IPRATROPIUM NEB FS 0.5 MG/2.5 ML AMPUL.NEB IH SCH ×4 (02:09→20:22)
[2017-02-26] MEDS: GLYCOPYRROLATE 1 MG TABLET PO SCH ×2 (05:00→12:56)
[2017-02-26] MEDS: PANTOPRAZOLE 40 MG TABLET.DR PO SCH (06:10)
[2017-02-26] MEDS: BLOOD SUGAR DIAGNOSTIC 1 EACH STRIP VI SCH ×3 (06:50→17:11)
[2017-02-26] MEDS: POLYVINYL ALCOHOL 15 ML BOTTLE EACHEYE SCH ×4 (08:12→21:01)
[2017-02-26] MEDS: VIT B CMPLX 3/FA/VIT C/BIOTIN 1 TAB TABLET PO SCH (08:12)
[2017-02-26] MEDS: SITAGLIPTIN PHOSPHATE 25 MG TABLET PO SCH (08:12)
[2017-02-26] MEDS: PROSOURCE / PROSTAT (PYXIS) 30 ML UDC PO SCH ×3 (08:12→17:11)
[2017-02-26] MEDS: HYDROGEN PEROXIDE 480 ML BOTTLE TP SCH ×2 (08:13→21:01)
[2017-02-26] MEDS: SERTRALINE HCL 25 MG TABLET PO SCH (08:13)
[2017-02-26] MEDS: NEOMY SULF/BACITRAC ZN/POLY 15 GM TUBE TP SCH ×3 (08:13→21:02)
[2017-02-26] MEDS: HEPARIN SODIUM, PORCINE 5000 UNITS/1 ML VIAL SQ SCH ×2 (08:13→21:01)
[2017-02-26] MEDS: MINERAL OIL/PETROL OINT 396 GM JAR TP SCH ×2 (08:13→21:01)
[2017-02-26 08:14] VITALS: BP 104/54
[2017-02-26] MEDS: ZINC OXIDE 56.7 GM TUBE TP SCH ×2 (08:14→21:02)
[2017-02-26] MEDS: BUDESONIDE RESPULE INH 0.5 MG/2 ML AMPUL.NEB IH SCH ×2 (08:28→20:22)
[2017-02-26] MEDS: NAPROXEN 500 MG TABLET PO PRN ×2 (09:00→22:25)
[2017-02-26] MEDS: GUAIFENESIN/D-METHORPHAN HB 5 ML UDC PO PRN ×2 (09:00→21:02)
[2017-02-26] MEDS: INSULIN LISPRO/ASPART 100 UNIT/ML CARTRIDGE SQ PRN ×2 (12:02→17:12)
[2017-02-26 20:19] VITALS: BP 145/72
[2017-02-26] MEDS: ASCORBIC ACID 500 MG TABLET PO SCH (21:01)
[2017-02-26] MEDS: DOCUSATE SODIUM 100 MG CAPSULE PO SCH (21:01)
[2017-02-26] MEDS: MONTELUKAST SODIUM (10MG) 10 MG TABLET PO SCH (21:02)
[2017-02-26] MEDS: GABAPENTIN 100 MG CAPSULE PO SCH (21:02)
[2017-02-26] MEDS: [UNRECOGNIZED DRUG - OTHER] TP SCH (21:02)
[2017-02-26] MEDS: TEMAZEPAM 7.5 MG CAPSULE PO SCH (21:02)
[2017-02-27] MEDS: ALBUTEROL FS 2.5 MG/3 ML VIAL.NEB NEB SCH ×4 (01:30→18:55)
[2017-02-27] MEDS: IPRATROPIUM NEB FS 0.5 MG/2.5 ML AMPUL.NEB IH SCH ×4 (01:30→18:55)
[2017-02-27] MEDS: PANTOPRAZOLE 40 MG TABLET.DR PO SCH (06:15)
[2017-02-27] MEDS: BLOOD SUGAR DIAGNOSTIC 1 EACH STRIP VI SCH ×3 (06:51→17:10)
[2017-02-27] MEDS: INSULIN LISPRO/ASPART 100 UNIT/ML CARTRIDGE SQ PRN ×2 (06:52→17:11)
[2017-02-27 07:52] VITALS: BP 148/98
[2017-02-27] MEDS: BUDESONIDE RESPULE INH 0.5 MG/2 ML AMPUL.NEB IH SCH ×2 (08:07→20:12)
[2017-02-27] MEDS: PROSOURCE / PROSTAT (PYXIS) 30 ML UDC PO SCH ×3 (09:00→17:00)
[2017-02-27] MEDS: POLYVINYL ALCOHOL 15 ML BOTTLE EACHEYE SCH ×4 (09:00→21:16)
[2017-02-27] MEDS: SERTRALINE HCL 25 MG TABLET PO SCH (09:06)
[2017-02-27] MEDS: SITAGLIPTIN PHOSPHATE 25 MG TABLET PO SCH (09:06)
[2017-02-27] MEDS: HEPARIN SODIUM, PORCINE 5000 UNITS/1 ML VIAL SQ SCH ×2 (09:06→21:17)
[2017-02-27] MEDS: predniSONE 10 MG TABLET PO SCH (09:06)
[2017-02-27] MEDS: VIT B CMPLX 3/FA/VIT C/BIOTIN 1 TAB TABLET PO SCH (09:06)
[2017-02-27] MEDS: MINERAL OIL/PETROL OINT 396 GM JAR TP SCH ×2 (09:06→21:17)
[2017-02-27] MEDS: HYDROGEN PEROXIDE 480 ML BOTTLE TP SCH ×2 (09:07→21:17)
[2017-02-27] MEDS: NEOMY SULF/BACITRAC ZN/POLY 15 GM TUBE TP SCH ×3 (09:08→21:17)
[2017-02-27] MEDS: ZINC OXIDE 56.7 GM TUBE TP SCH ×2 (09:08→21:17)
--- NOTE | 2017-02-27 09:21 | NUR ---
Gave the RD recommendation from [facility] to Dr. Prieto. She approved recommendations to double portion of proteins with meals, offer Novasource renal once a day, and encourage compliance with low potassium diet. Pt already on Novasource renal PRN.
--- NOTE | 2017-02-27 09:28 | NUR ---
Informed resident of IDT meeting tomorrow February 28, 2017 from 12:30-1:30pm. He stated that he does not want to attend but wants the hospital social worker to tell Dr. Gardner that he feels that he does not need dialysis. He stated that he feels it is all for money. He also reported that he feels he does not need the trach and pmv and can breathe fine without it and that he is able to currently spit. refuge worker to communicate this during IDT meeting.
[2017-02-27] MEDS: GUAIFENESIN/D-METHORPHAN HB 5 ML UDC PO PRN ×2 (09:35→23:24)
[2017-02-27 20:15] VITALS: BP 143/83
[2017-02-27] MEDS: ASCORBIC ACID 500 MG TABLET PO SCH (21:16)
[2017-02-27] MEDS: DOCUSATE SODIUM 100 MG CAPSULE PO SCH (21:16)
[2017-02-27] MEDS: TEMAZEPAM 7.5 MG CAPSULE PO SCH (21:17)
[2017-02-27] MEDS: GABAPENTIN 100 MG CAPSULE PO SCH (21:17)
[2017-02-27] MEDS: [UNRECOGNIZED DRUG - OTHER] TP SCH (21:17)
[2017-02-27] MEDS: MONTELUKAST SODIUM (10MG) 10 MG TABLET PO SCH (21:17)
[2017-02-28] MEDS: IPRATROPIUM NEB FS 0.5 MG/2.5 ML AMPUL.NEB IH SCH ×4 (01:16→19:08)
[2017-02-28] MEDS: ALBUTEROL FS 2.5 MG/3 ML VIAL.NEB NEB SCH ×4 (01:16→19:08)
[2017-02-28] MEDS: PANTOPRAZOLE 40 MG TABLET.DR PO SCH (05:41)
[2017-02-28] MEDS: INSULIN LISPRO/ASPART 100 UNIT/ML CARTRIDGE SQ PRN ×2 (06:54→12:09)
[2017-02-28] MEDS: BLOOD SUGAR DIAGNOSTIC 1 EACH STRIP VI SCH ×3 (06:54→17:46)
[2017-02-28 07:37] VITALS: BP 144/92
[2017-02-28] MEDS: BUDESONIDE RESPULE INH 0.5 MG/2 ML AMPUL.NEB IH SCH ×2 (08:08→20:06)
[2017-02-28] MEDS: POLYVINYL ALCOHOL 15 ML BOTTLE EACHEYE SCH ×4 (08:39→21:19)
[2017-02-28] MEDS: SITAGLIPTIN PHOSPHATE 25 MG TABLET PO SCH (08:39)
[2017-02-28] MEDS: SERTRALINE HCL 25 MG TABLET PO SCH (08:40)
[2017-02-28] MEDS: PROSOURCE / PROSTAT (PYXIS) 30 ML UDC PO SCH ×3 (08:40→17:46)
[2017-02-28] MEDS: VIT B CMPLX 3/FA/VIT C/BIOTIN 1 TAB TABLET PO SCH (08:40)
[2017-02-28] MEDS: HYDROGEN PEROXIDE 480 ML BOTTLE TP SCH ×2 (08:42→21:19)
[2017-02-28] MEDS: MINERAL OIL/PETROL OINT 396 GM JAR TP SCH ×2 (08:42→21:19)
[2017-02-28] MEDS: ZINC OXIDE 56.7 GM TUBE TP SCH ×2 (08:42→21:19)
[2017-02-28] MEDS: HEPARIN SODIUM, PORCINE 5000 UNITS/1 ML VIAL SQ SCH ×2 (08:42→21:19)
[2017-02-28] MEDS: NEOMY SULF/BACITRAC ZN/POLY 15 GM TUBE TP SCH ×2 (08:42→21:19)
--- NOTE | 2017-02-28 15:09 | NUR ---
INTERDISCIPLINARY PLAN OF CARE CONFERENCE was held today. Resident did not want to attend. New orders were reviewed. Dr. Gardner and the interdisciplinary team reviewed the current plan of care in detail. SW communicated that resident feels he does not need dialysis or the trach. Per Dr. Gardner, these are necessary for the resident. New order for psychologist was given and SW to make arrangements for the resident to see a psychologist.
[2017-02-28 19:58] VITALS: BP 153/88
[2017-02-28] MEDS: ASCORBIC ACID 500 MG TABLET PO SCH (21:19)
[2017-02-28] MEDS: DOCUSATE SODIUM 100 MG CAPSULE PO SCH (21:19)
[2017-02-28] MEDS: GABAPENTIN 100 MG CAPSULE PO SCH (21:20)
[2017-02-28] MEDS: TEMAZEPAM 7.5 MG CAPSULE PO SCH (21:20)
[2017-02-28] MEDS: MONTELUKAST SODIUM (10MG) 10 MG TABLET PO SCH (21:20)
[2017-02-28] MEDS: [UNRECOGNIZED DRUG - OTHER] TP SCH (21:20)
[2017-02-28] MEDS: GUAIFENESIN/D-METHORPHAN HB 5 ML UDC PO PRN (23:35)
[2017-03-01] MEDS: ONDANSETRON 4 MG TAB.RAPDIS PO PRN ×3 (00:21→19:48)
[2017-03-01] MEDS: ALBUTEROL FS 2.5 MG/3 ML VIAL.NEB NEB SCH ×4 (01:24→19:54)
[2017-03-01] MEDS: IPRATROPIUM NEB FS 0.5 MG/2.5 ML AMPUL.NEB IH SCH ×4 (01:24→19:54)
[2017-03-01] MEDS: PANTOPRAZOLE 40 MG TABLET.DR PO SCH (05:51)
[2017-03-01] MEDS: BLOOD SUGAR DIAGNOSTIC 1 EACH STRIP VI SCH ×3 (07:03→17:13)
[2017-03-01] MEDS: INSULIN LISPRO/ASPART 100 UNIT/ML CARTRIDGE SQ PRN ×2 (07:04→17:14)
[2017-03-01 07:48] VITALS: BP 145/99
[2017-03-01] MEDS: BUDESONIDE RESPULE INH 0.5 MG/2 ML AMPUL.NEB IH SCH ×2 (08:03→20:51)
[2017-03-01] MEDS: GUAIFENESIN/D-METHORPHAN HB 5 ML UDC PO PRN ×2 (08:42→21:19)
[2017-03-01] MEDS: VIT B CMPLX 3/FA/VIT C/BIOTIN 1 TAB TABLET PO SCH (08:43)
[2017-03-01] MEDS: HEPARIN SODIUM, PORCINE 5000 UNITS/1 ML VIAL SQ SCH ×2 (08:43→20:25)
[2017-03-01] MEDS: SERTRALINE HCL 25 MG TABLET PO SCH (08:43)
[2017-03-01] MEDS: POLYVINYL ALCOHOL 15 ML BOTTLE EACHEYE SCH ×4 (08:43→20:25)
[2017-03-01] MEDS: SITAGLIPTIN PHOSPHATE 25 MG TABLET PO SCH (08:43)
[2017-03-01] MEDS: PROSOURCE / PROSTAT (PYXIS) 30 ML UDC PO SCH ×3 (08:43→17:00)
[2017-03-01] MEDS: predniSONE 10 MG TABLET PO SCH (08:43)
[2017-03-01] MEDS: MINERAL OIL/PETROL OINT 396 GM JAR TP SCH ×2 (08:43→20:25)
[2017-03-01] MEDS: HYDROGEN PEROXIDE 480 ML BOTTLE TP SCH ×2 (08:43→20:25)
[2017-03-01] MEDS: ZINC OXIDE 56.7 GM TUBE TP SCH ×2 (08:44→20:25)
[2017-03-01] MEDS: NEOMY SULF/BACITRAC ZN/POLY 15 GM TUBE TP SCH (08:44)
--- NOTE | 2017-03-01 10:00 | NUR ---
Resident left for dialysis condition fair, patient earlier stated he does not feel good and felt nauseated. Zofran PO given for c/o nausea. Report given to ambulance staff regarding patient's condition. Reported patient's complain to Dr. Navarrete, no new order given, MD is aware patient left for dialysis.
[2017-03-01] MEDS: ASCORBIC ACID 500 MG TABLET PO SCH (20:25)
[2017-03-01] MEDS: DOCUSATE SODIUM 100 MG CAPSULE PO SCH (20:25)
[2017-03-01] MEDS: NAPROXEN 500 MG TABLET PO PRN (21:19)
[2017-03-01] MEDS: TEMAZEPAM 7.5 MG CAPSULE PO SCH (21:19)
[2017-03-01] MEDS: GABAPENTIN 100 MG CAPSULE PO SCH (22:46)
[2017-03-01] MEDS: MONTELUKAST SODIUM (10MG) 10 MG TABLET PO SCH (22:46)
[2017-03-01] MEDS: [UNRECOGNIZED DRUG - OTHER] TP SCH (22:46)
[2017-03-01 23:07] VITALS: BP 134/69
[2017-03-02] MEDS: ALBUTEROL FS 2.5 MG/3 ML VIAL.NEB NEB SCH ×4 (01:57→20:10)
[2017-03-02] MEDS: IPRATROPIUM NEB FS 0.5 MG/2.5 ML AMPUL.NEB IH SCH ×4 (01:57→20:10)
[2017-03-02] MEDS: PANTOPRAZOLE 40 MG TABLET.DR PO SCH (06:37)
[2017-03-02] MEDS: BLOOD SUGAR DIAGNOSTIC 1 EACH STRIP VI SCH ×3 (06:46→17:44)
[2017-03-02] MEDS: INSULIN LISPRO/ASPART 100 UNIT/ML CARTRIDGE SQ PRN ×3 (06:47→17:45)
[2017-03-02 07:23] VITALS: BP 137/89
[2017-03-02] MEDS: POLYVINYL ALCOHOL 15 ML BOTTLE EACHEYE SCH ×4 (08:40→20:54)
[2017-03-02] MEDS: VIT B CMPLX 3/FA/VIT C/BIOTIN 1 TAB TABLET PO SCH (08:40)
[2017-03-02] MEDS: SITAGLIPTIN PHOSPHATE 25 MG TABLET PO SCH (08:40)
[2017-03-02] MEDS: SERTRALINE HCL 25 MG TABLET PO SCH (08:40)
[2017-03-02] MEDS: PROSOURCE / PROSTAT (PYXIS) 30 ML UDC PO SCH ×3 (08:40→17:44)
[2017-03-02] MEDS: HYDROGEN PEROXIDE 480 ML BOTTLE TP SCH ×2 (08:41→20:57)
[2017-03-02] MEDS: HEPARIN SODIUM, PORCINE 5000 UNITS/1 ML VIAL SQ SCH ×2 (08:41→20:55)
[2017-03-02] MEDS: ZINC OXIDE 56.7 GM TUBE TP SCH ×2 (08:41→20:57)
[2017-03-02] MEDS: MINERAL OIL/PETROL OINT 396 GM JAR TP SCH ×2 (08:41→20:57)
[2017-03-02] MEDS: GUAIFENESIN/D-METHORPHAN HB 5 ML UDC PO PRN ×2 (08:52→21:02)
[2017-03-02] MEDS: BUDESONIDE RESPULE INH 0.5 MG/2 ML AMPUL.NEB IH SCH ×2 (09:00→20:10)
--- NOTE | 2017-03-02 16:00 | NUR ---
Resident very happy to report that his brother visited him and he was talking to him with his PMV on for 1 hour. According to patient he does not feel nauseated anymore but only spits a lot. He has been asking for Novasource drink for the past 3 days and he promised that he will get out of bed tomorrow. Endorsed to AM shift to get patient up in AM.
[2017-03-02 20:00] VITALS: BP 155/98
[2017-03-02] MEDS: DOCUSATE SODIUM 100 MG CAPSULE PO SCH (20:54)
[2017-03-02] MEDS: ASCORBIC ACID 500 MG TABLET PO SCH (20:55)
[2017-03-02] MEDS: ATARAX 25 MG PO PRN (21:02)
[2017-03-02] MEDS: GABAPENTIN 100 MG CAPSULE PO SCH (22:00)
[2017-03-02] MEDS: [UNRECOGNIZED DRUG - OTHER] TP SCH (22:00)
[2017-03-02] MEDS: TEMAZEPAM 7.5 MG CAPSULE PO SCH (22:00)
[2017-03-02] MEDS: MONTELUKAST SODIUM (10MG) 10 MG TABLET PO SCH (22:00)
[2017-03-03] MEDS: ALBUTEROL FS 2.5 MG/3 ML VIAL.NEB NEB SCH ×4 (01:02→20:30)
[2017-03-03] MEDS: IPRATROPIUM NEB FS 0.5 MG/2.5 ML AMPUL.NEB IH SCH ×4 (01:02→20:30)
[2017-03-03] MEDS: PANTOPRAZOLE 40 MG TABLET.DR PO SCH (06:08)
[2017-03-03] MEDS: BLOOD SUGAR DIAGNOSTIC 1 EACH STRIP VI SCH ×3 (07:30→17:33)
[2017-03-03] MEDS: SERTRALINE HCL 25 MG TABLET PO SCH (08:19)
[2017-03-03] MEDS: predniSONE 10 MG TABLET PO SCH (08:19)
[2017-03-03] MEDS: SITAGLIPTIN PHOSPHATE 25 MG TABLET PO SCH (08:19)
[2017-03-03] MEDS: PROSOURCE / PROSTAT (PYXIS) 30 ML UDC PO SCH ×3 (08:19→17:33)
[2017-03-03] MEDS: VIT B CMPLX 3/FA/VIT C/BIOTIN 1 TAB TABLET PO SCH (08:19)
[2017-03-03] MEDS: POLYVINYL ALCOHOL 15 ML BOTTLE EACHEYE SCH ×4 (08:19→21:09)
[2017-03-03] MEDS: HEPARIN SODIUM, PORCINE 5000 UNITS/1 ML VIAL SQ SCH ×2 (08:20→21:09)
[2017-03-03] MEDS: HYDROGEN PEROXIDE 480 ML BOTTLE TP SCH ×2 (08:21→21:12)
[2017-03-03] MEDS: MINERAL OIL/PETROL OINT 396 GM JAR TP SCH ×2 (08:21→21:11)
[2017-03-03] MEDS: BUDESONIDE RESPULE INH 0.5 MG/2 ML AMPUL.NEB IH SCH ×2 (08:21→21:02)
[2017-03-03] MEDS: ZINC OXIDE 56.7 GM TUBE TP SCH ×2 (08:21→21:12)
[2017-03-03 08:22] VITALS: BP 136/86
[2017-03-03] MEDS: GUAIFENESIN/D-METHORPHAN HB 5 ML UDC PO PRN ×2 (08:23→21:10)
--- NOTE | 2017-03-03 09:33 | NUR ---
Sent psychologist referral to Loan Thompson Psy.D. . FERNANDO will follow up. Addendum: 03/03/17 at [address] Thompson came to speak to the social service manager in her office. She stated that she does not take [employer] [facility] and is only able to see patient's that have medicare. Appreciated the referral but she stated that she cannot see the resident.
--- NOTE | 2017-03-03 11:00 | NUR ---
Notified Dr. Prieto that pt said he does not need hemodialysis anymore, he thinks it is just being done to make money. Dr. Prieto discussed the importance of hemodialysis with the pt and what will happen if it is discontinued. Pt agreed with her.
[2017-03-03] MEDS: INSULIN LISPRO/ASPART 100 UNIT/ML CARTRIDGE SQ PRN ×3 (14:33→17:35)
--- NOTE | 2017-03-03 15:23 | NUR ---
Called Dr. Jones ([address] [place] [address] ) to see if he is able to see the resident with his insurance. Left a message with contact information. FERNANDO will follow up. Addendum: 03/04/17 at 1014 by JONNA KING Received a voicemail message from Dr. Jones. He stated that he is not currently seeing [facility] patients. Appreciated the referral but stated that he is not able to see the patient.
[2017-03-03] MEDS: ONDANSETRON 4 MG TAB.RAPDIS PO PRN (17:44)
[2017-03-03 20:06] VITALS: BP 152/92
[2017-03-03] MEDS: DOCUSATE SODIUM 100 MG CAPSULE PO SCH (21:07)
[2017-03-03] MEDS: ASCORBIC ACID 500 MG TABLET PO SCH (21:09)
[2017-03-03] MEDS: ATARAX 25 MG PO PRN (21:10)
[2017-03-03] MEDS: TEMAZEPAM 7.5 MG CAPSULE PO SCH (21:12)
[2017-03-03] MEDS: [UNRECOGNIZED DRUG - OTHER] TP SCH (21:12)
[2017-03-03] MEDS: GABAPENTIN 100 MG CAPSULE PO SCH (21:12)
[2017-03-03] MEDS: MONTELUKAST SODIUM (10MG) 10 MG TABLET PO SCH (21:12)
[2017-03-04] MEDS: IPRATROPIUM NEB FS 0.5 MG/2.5 ML AMPUL.NEB IH SCH ×4 (01:30→20:21)
[2017-03-04] MEDS: ALBUTEROL FS 2.5 MG/3 ML VIAL.NEB NEB SCH ×4 (01:30→20:21)
[2017-03-04] MEDS: PANTOPRAZOLE 40 MG TABLET.DR PO SCH (06:07)
[2017-03-04] MEDS: BLOOD SUGAR DIAGNOSTIC 1 EACH STRIP VI SCH ×3 (06:40→17:38)
[2017-03-04 07:54] VITALS: BP 137/79
[2017-03-04] MEDS: ONDANSETRON 4 MG TAB.RAPDIS PO PRN (07:54)
[2017-03-04] MEDS: PROSOURCE / PROSTAT (PYXIS) 30 ML UDC PO SCH ×3 (08:04→16:31)
[2017-03-04] MEDS: VIT B CMPLX 3/FA/VIT C/BIOTIN 1 TAB TABLET PO SCH (08:04)
[2017-03-04] MEDS: SITAGLIPTIN PHOSPHATE 25 MG TABLET PO SCH (08:04)
[2017-03-04] MEDS: POLYVINYL ALCOHOL 15 ML BOTTLE EACHEYE SCH ×4 (08:04→21:46)
[2017-03-04] MEDS: SERTRALINE HCL 25 MG TABLET PO SCH (08:04)
[2017-03-04] MEDS: HEPARIN SODIUM, PORCINE 5000 UNITS/1 ML VIAL SQ SCH ×2 (08:05→21:51)
[2017-03-04] MEDS: BUDESONIDE RESPULE INH 0.5 MG/2 ML AMPUL.NEB IH SCH ×2 (08:27→20:22)
[2017-03-04] MEDS: HYDROGEN PEROXIDE 480 ML BOTTLE TP SCH ×2 (09:03→21:52)
[2017-03-04] MEDS: MINERAL OIL/PETROL OINT 396 GM JAR TP SCH ×2 (09:03→21:51)
[2017-03-04] MEDS: ZINC OXIDE 56.7 GM TUBE TP SCH ×2 (09:03→21:52)
--- NOTE | 2017-03-04 09:25 | NUR ---
Patient picked up by the transportation for dialysis.
--- NOTE | 2017-03-04 14:50 | NUR ---
RN NOTES Patient came back from [facility] dialysis center and pt is awake and no new orders noted.
[2017-03-04] MEDS: INSULIN LISPRO/ASPART 100 UNIT/ML CARTRIDGE SQ PRN (17:39)
[2017-03-04] MEDS: TRAMADOL HCL 50 MG TABLET PO PRN (18:41)
[2017-03-04] MEDS: GUAIFENESIN/D-METHORPHAN HB 5 ML UDC PO PRN (21:39)
[2017-03-04] MEDS: DOCUSATE SODIUM 100 MG CAPSULE PO SCH (21:46)
[2017-03-04] MEDS: ASCORBIC ACID 500 MG TABLET PO SCH (21:46)
[2017-03-04] MEDS: GABAPENTIN 100 MG CAPSULE PO SCH (21:53)
[2017-03-04] MEDS: MONTELUKAST SODIUM (10MG) 10 MG TABLET PO SCH (21:54)
[2017-03-04] MEDS: [UNRECOGNIZED DRUG - OTHER] TP SCH (21:55)
[2017-03-04] MEDS: TEMAZEPAM 7.5 MG CAPSULE PO SCH (21:59)
[2017-03-05] MEDS: ALBUTEROL FS 2.5 MG/3 ML VIAL.NEB NEB SCH ×4 (01:30→19:35)
[2017-03-05] MEDS: IPRATROPIUM NEB FS 0.5 MG/2.5 ML AMPUL.NEB IH SCH ×4 (01:30→19:35)
[2017-03-05] MEDS: PANTOPRAZOLE 40 MG TABLET.DR PO SCH (06:35)
[2017-03-05] MEDS: BLOOD SUGAR DIAGNOSTIC 1 EACH STRIP VI SCH ×3 (07:30→17:10)
[2017-03-05 08:11] VITALS: BP 142/92
[2017-03-05] MEDS: BUDESONIDE RESPULE INH 0.5 MG/2 ML AMPUL.NEB IH SCH ×2 (08:36→20:01)
[2017-03-05] MEDS: SITAGLIPTIN PHOSPHATE 25 MG TABLET PO SCH (09:12)
[2017-03-05] MEDS: POLYVINYL ALCOHOL 15 ML BOTTLE EACHEYE SCH ×4 (09:12→21:04)
[2017-03-05] MEDS: predniSONE 10 MG TABLET PO SCH (09:12)
[2017-03-05] MEDS: PROSOURCE / PROSTAT (PYXIS) 30 ML UDC PO SCH ×3 (09:12→17:10)
[2017-03-05] MEDS: MINERAL OIL/PETROL OINT 396 GM JAR TP SCH ×2 (09:12→21:06)
[2017-03-05] MEDS: SERTRALINE HCL 25 MG TABLET PO SCH (09:12)
[2017-03-05] MEDS: HEPARIN SODIUM, PORCINE 5000 UNITS/1 ML VIAL SQ SCH ×2 (09:12→21:05)
[2017-03-05] MEDS: VIT B CMPLX 3/FA/VIT C/BIOTIN 1 TAB TABLET PO SCH (09:12)
[2017-03-05] MEDS: ZINC OXIDE 56.7 GM TUBE TP SCH ×2 (09:13→21:06)
[2017-03-05] MEDS: HYDROGEN PEROXIDE 480 ML BOTTLE TP SCH ×2 (09:13→21:06)
[2017-03-05] MEDS: INSULIN LISPRO/ASPART 100 UNIT/ML CARTRIDGE SQ PRN ×2 (09:15→11:49)
[2017-03-05] MEDS: GUAIFENESIN/D-METHORPHAN HB 5 ML UDC PO PRN ×2 (10:30→21:05)
[2017-03-05] MEDS: BISACODYL SUPP (10 MG) 10 MG/SUPP.RECT SUPP.RECT RC PRN (12:44)
--- NOTE | 2017-03-05 15:23 | NUR ---
PATIENT REFUSED TRACH CHANGE TODAY. PATIENT EDUCATED ON THE IMPORTANCE OF MONTHLY CHANGE. WILL FOLLOW UP TOMORROW.
[2017-03-05] MEDS: NAPROXEN 500 MG TABLET PO PRN (18:17)
[2017-03-05 19:49] VITALS: BP 154/98
[2017-03-05] MEDS: DOCUSATE SODIUM 100 MG CAPSULE PO SCH (21:04)
[2017-03-05] MEDS: ATARAX 25 MG PO PRN (21:05)
[2017-03-05] MEDS: ASCORBIC ACID 500 MG TABLET PO SCH (21:05)
[2017-03-05] MEDS: [UNRECOGNIZED DRUG - OTHER] TP SCH (21:07)
[2017-03-05] MEDS: GABAPENTIN 100 MG CAPSULE PO SCH (21:07)
[2017-03-05] MEDS: MONTELUKAST SODIUM (10MG) 10 MG TABLET PO SCH (21:07)
[2017-03-05] MEDS: TEMAZEPAM 7.5 MG CAPSULE PO SCH (21:07)
[2017-03-06] MEDS: ALBUTEROL FS 2.5 MG/3 ML VIAL.NEB NEB SCH ×4 (01:14→19:48)
[2017-03-06] MEDS: IPRATROPIUM NEB FS 0.5 MG/2.5 ML AMPUL.NEB IH SCH ×4 (01:14→19:48)
[2017-03-06] MEDS: PANTOPRAZOLE 40 MG TABLET.DR PO SCH (06:45)
[2017-03-06] MEDS: BLOOD SUGAR DIAGNOSTIC 1 EACH STRIP VI SCH ×3 (06:45→17:22)
[2017-03-06 07:52] VITALS: BP 149/87
[2017-03-06] MEDS: BUDESONIDE RESPULE INH 0.5 MG/2 ML AMPUL.NEB IH SCH ×2 (08:34→19:48)
[2017-03-06] MEDS: POLYVINYL ALCOHOL 15 ML BOTTLE EACHEYE SCH ×4 (08:42→20:39)
[2017-03-06] MEDS: VIT B CMPLX 3/FA/VIT C/BIOTIN 1 TAB TABLET PO SCH (08:45)
[2017-03-06] MEDS: HEPARIN SODIUM, PORCINE 5000 UNITS/1 ML VIAL SQ SCH ×2 (08:47→20:41)
[2017-03-06] MEDS: SITAGLIPTIN PHOSPHATE 25 MG TABLET PO SCH (08:48)
[2017-03-06] MEDS: PROSOURCE / PROSTAT (PYXIS) 30 ML UDC PO SCH ×3 (08:48→17:22)
[2017-03-06] MEDS: HYDROGEN PEROXIDE 480 ML BOTTLE TP SCH ×2 (08:49→20:41)
[2017-03-06] MEDS: MINERAL OIL/PETROL OINT 396 GM JAR TP SCH ×2 (08:49→20:41)
[2017-03-06] MEDS: ZINC OXIDE 56.7 GM TUBE TP SCH ×2 (08:49→20:41)
[2017-03-06] MEDS: SERTRALINE HCL 25 MG TABLET PO SCH (08:49)
--- NOTE | 2017-03-06 09:14 | NUR ---
Informed by charge nurse if social media marketing manager can check for wheelchair eligibility for the resident. dairy cattle farm worker faxed referral to ([place] [facility]- ; fax: [phone]). SW called as well to verify fax number and they stated they will check eligibility and will inform SW. SW will follow up.
--- NOTE | 2017-03-06 12:49 | NUR ---
patient is not yet back from HD. 1300 med will administered when patient return to unit
[2017-03-06] MEDS: RENAL NOVASOURCE (8OZ) 1 EA BOX PO PRN (13:47)
[2017-03-06] MEDS: ONDANSETRON 4 MG TAB.RAPDIS PO PRN (14:32)
[2017-03-06] MEDS: NAPROXEN 500 MG TABLET PO PRN (14:32)
[2017-03-06] MEDS: CLONIDINE HCL 0.1 MG TABLET PO PRN (15:25)
--- NOTE | 2017-03-06 15:30 | NUR ---
Resident noted with elevated blood pressure of 170/107 mm of hg.status post dialysis.he is alert oriented ,no SOB no distress noticed.complains of pain on L shoulder. PRN pain medication given.denied chest pain.continue to monitor.
--- NOTE | 2017-03-06 16:00 | NUR ---
Rechecked residents blood pressure is 160/96,resident is alert oriented ,mentioned that his pain is getting better.continue to monitor.
--- NOTE | 2017-03-06 17:00 | NUR ---
Rechecked residents's blood pressure is 124/76.resident is alert oriented and relaxed.no complaints of pain.continue to monitor.
[2017-03-06] MEDS: INSULIN LISPRO/ASPART 100 UNIT/ML CARTRIDGE SQ PRN (17:23)
--- NOTE | 2017-03-06 20:00 | NUR ---
PT SEEN BY ARNOL NOLASCO AND ORDER GI CONSULT FOR FREQUENT NAUSEA AND STOMACH PAIN.WILL ENDORSED IN AM TO CALL GI DOCTOR.
[2017-03-06 20:19] VITALS: BP 133/74
[2017-03-06] MEDS: ASCORBIC ACID 500 MG TABLET PO SCH (20:39)
[2017-03-06] MEDS: DOCUSATE SODIUM 100 MG CAPSULE PO SCH (20:39)
[2017-03-06] MEDS: MAG HYDROX/AL HYDROX/SIMETH 30 ML UDC PO PRN (20:44)
[2017-03-06] MEDS: GABAPENTIN 100 MG CAPSULE PO SCH (22:46)
[2017-03-06] MEDS: TEMAZEPAM 7.5 MG CAPSULE PO SCH (22:47)
[2017-03-06] MEDS: GUAIFENESIN/D-METHORPHAN HB 5 ML UDC PO PRN (22:47)
[2017-03-06] MEDS: MONTELUKAST SODIUM (10MG) 10 MG TABLET PO SCH (22:47)
[2017-03-06] MEDS: [UNRECOGNIZED DRUG - OTHER] TP SCH (22:47)
[2017-03-07] MEDS: ALBUTEROL FS 2.5 MG/3 ML VIAL.NEB NEB SCH ×4 (02:21→19:52)
[2017-03-07] MEDS: IPRATROPIUM NEB FS 0.5 MG/2.5 ML AMPUL.NEB IH SCH ×4 (02:21→19:52)
[2017-03-07] MEDS: PANTOPRAZOLE 40 MG TABLET.DR PO SCH (06:56)
[2017-03-07] MEDS: BLOOD SUGAR DIAGNOSTIC 1 EACH STRIP VI SCH ×3 (06:56→17:30)
[2017-03-07] MEDS: INSULIN LISPRO/ASPART 100 UNIT/ML CARTRIDGE SQ PRN ×2 (06:57→13:10)
[2017-03-07] MEDS: BUDESONIDE RESPULE INH 0.5 MG/2 ML AMPUL.NEB IH SCH ×2 (07:20→20:12)
[2017-03-07 07:43] VITALS: BP 143/86
[2017-03-07] MEDS: NAPROXEN 500 MG TABLET PO PRN ×2 (08:00→20:55)
[2017-03-07] MEDS: SITAGLIPTIN PHOSPHATE 25 MG TABLET PO SCH (09:00)
[2017-03-07] MEDS: VIT B CMPLX 3/FA/VIT C/BIOTIN 1 TAB TABLET PO SCH (09:00)
[2017-03-07] MEDS: ZINC OXIDE 56.7 GM TUBE TP SCH ×2 (09:00→20:55)
[2017-03-07] MEDS: MINERAL OIL/PETROL OINT 396 GM JAR TP SCH ×2 (09:00→20:55)
[2017-03-07] MEDS: POLYVINYL ALCOHOL 15 ML BOTTLE EACHEYE SCH ×4 (09:00→20:54)
[2017-03-07] MEDS: HEPARIN SODIUM, PORCINE 5000 UNITS/1 ML VIAL SQ SCH ×2 (09:00→20:54)
[2017-03-07] MEDS: PROSOURCE / PROSTAT (PYXIS) 30 ML UDC PO SCH ×3 (09:00→17:34)
[2017-03-07] MEDS: SERTRALINE HCL 25 MG TABLET PO SCH (09:00)
[2017-03-07] MEDS: HYDROGEN PEROXIDE 480 ML BOTTLE TP SCH ×2 (09:00→20:55)
[2017-03-07] MEDS: predniSONE 10 MG TABLET PO SCH (09:00)
[2017-03-07] MEDS: BISACODYL SUPP (10 MG) 10 MG/SUPP.RECT SUPP.RECT RC PRN (11:10)
--- NOTE | 2017-03-07 12:40 | NUR ---
Notified Radhika Hawkins NP for Dr. French (braid cutter) regarding patient's frequent complain of N/V, abdominal pain. She seen and assessed patient with new order for labs, stool for OB and abdominal ultrasound. Resident adamantly refused to have blood drawn here, he wants it done at the dialysis center, despite explanation of getting result sooner resident still refused.
[2017-03-07] MEDS: ONDANSETRON 4 MG TAB.RAPDIS PO PRN (15:35)
--- NOTE | 2017-03-07 18:40 | NUR ---
Notified Radhika Mack that abdominal ultrasound was just completed and if she want to resu,e patient's feeding. She was also inform of patient's refusal to have blood drawn at the facility. She said it is OK and resume previous diet. Resident made aware.
--- NOTE | 2017-03-07 18:45 | NUR ---
Resident's BS was 39, orange juice given as ordered, rechecked after 1 hour BS went up to 97, no s/s of hypoglycemia. Radhika Hawkins is aware that resident received OJ prior to doing abdominal ultrasound.
[2017-03-07 19:54] VITALS: BP 146/88
[2017-03-07] MEDS: ASCORBIC ACID 500 MG TABLET PO SCH (20:54)
[2017-03-07] MEDS: DOCUSATE SODIUM 100 MG CAPSULE PO SCH (20:54)
[2017-03-07] MEDS: GUAIFENESIN/D-METHORPHAN HB 5 ML UDC PO PRN (20:55)
[2017-03-07] MEDS: GABAPENTIN 100 MG CAPSULE PO SCH (21:45)
[2017-03-07] MEDS: TEMAZEPAM 7.5 MG CAPSULE PO SCH (21:45)
[2017-03-07] MEDS: ATARAX 25 MG PO PRN (21:46)
[2017-03-07] MEDS: [UNRECOGNIZED DRUG - OTHER] TP SCH (21:46)
[2017-03-07] MEDS: MONTELUKAST SODIUM (10MG) 10 MG TABLET PO SCH (21:46)
[2017-03-08] MEDS: ALBUTEROL FS 2.5 MG/3 ML VIAL.NEB NEB SCH ×4 (01:47→19:07)
[2017-03-08] MEDS: IPRATROPIUM NEB FS 0.5 MG/2.5 ML AMPUL.NEB IH SCH ×4 (01:47→19:07)
[2017-03-08] MEDS: PANTOPRAZOLE 40 MG TABLET.DR PO SCH (05:35)
[2017-03-08] MEDS: BLOOD SUGAR DIAGNOSTIC 1 EACH STRIP VI SCH ×3 (06:46→17:21)
[2017-03-08] MEDS: INSULIN LISPRO/ASPART 100 UNIT/ML CARTRIDGE SQ PRN ×2 (06:46→17:23)
[2017-03-08] MEDS: ONDANSETRON 4 MG TAB.RAPDIS PO PRN (06:48)
[2017-03-08 07:46] VITALS: BP 150/97
[2017-03-08] MEDS: SERTRALINE HCL 25 MG TABLET PO SCH (08:06)
[2017-03-08] MEDS: SITAGLIPTIN PHOSPHATE 25 MG TABLET PO SCH (08:06)
[2017-03-08] MEDS: HEPARIN SODIUM, PORCINE 5000 UNITS/1 ML VIAL SQ SCH ×2 (08:06→20:56)
[2017-03-08] MEDS: PROSOURCE / PROSTAT (PYXIS) 30 ML UDC PO SCH ×3 (08:06→17:00)
[2017-03-08] MEDS: MINERAL OIL/PETROL OINT 396 GM JAR TP SCH ×2 (08:06→20:56)
[2017-03-08] MEDS: POLYVINYL ALCOHOL 15 ML BOTTLE EACHEYE SCH ×4 (08:06→20:55)
[2017-03-08] MEDS: VIT B CMPLX 3/FA/VIT C/BIOTIN 1 TAB TABLET PO SCH (08:06)
[2017-03-08] MEDS: GUAIFENESIN/D-METHORPHAN HB 5 ML UDC PO PRN ×2 (08:10→20:56)
[2017-03-08] MEDS: BUDESONIDE RESPULE INH 0.5 MG/2 ML AMPUL.NEB IH SCH ×2 (09:02→20:08)
[2017-03-08 13:59] LABS: ALBUMIN 2.9 g/dL (3.4-5.0); BILIRUBIN,DIRECT 0.1 mg/dL (0.0-0.2); BILIRUBIN,TOTAL 1.2 mg/dL (0.2-1.0); CALCIUM, SERUM 8.5 mg/dL (8.5-10.1); POTASSIUM 5.4 mmol/L (3.5-5.1); TOTAL PROTEIN, SERUM 5.9 g/dL (6.4-8.2)
[2017-03-08] MEDS: NAPROXEN 500 MG TABLET PO PRN (14:13)
[2017-03-08] MEDS: ZINC OXIDE 56.7 GM TUBE TP SCH ×2 (17:20→20:56)
[2017-03-08] MEDS: HYDROGEN PEROXIDE 480 ML BOTTLE TP SCH ×2 (17:20→20:56)
[2017-03-08 20:15] VITALS: BP 126/77
[2017-03-08] MEDS: ASCORBIC ACID 500 MG TABLET PO SCH (20:55)
[2017-03-08] MEDS: DOCUSATE SODIUM 100 MG CAPSULE PO SCH (20:55)
[2017-03-08] MEDS: MONTELUKAST SODIUM (10MG) 10 MG TABLET PO SCH (22:26)
[2017-03-08] MEDS: TEMAZEPAM 7.5 MG CAPSULE PO SCH (22:26)
[2017-03-08] MEDS: GABAPENTIN 100 MG CAPSULE PO SCH (22:26)
[2017-03-08] MEDS: [UNRECOGNIZED DRUG - OTHER] TP SCH (22:27)
[2017-03-09] MEDS: IPRATROPIUM NEB FS 0.5 MG/2.5 ML AMPUL.NEB IH SCH ×4 (01:45→19:15)
[2017-03-09] MEDS: ALBUTEROL FS 2.5 MG/3 ML VIAL.NEB NEB SCH ×4 (01:45→19:15)
[2017-03-09] MEDS: PANTOPRAZOLE 40 MG TABLET.DR PO SCH (05:41)
[2017-03-09] MEDS: MAG HYDROX/AL HYDROX/SIMETH 30 ML UDC PO PRN (07:00)
[2017-03-09] MEDS: BLOOD SUGAR DIAGNOSTIC 1 EACH STRIP VI SCH ×3 (07:01→18:17)
[2017-03-09] MEDS: INSULIN LISPRO/ASPART 100 UNIT/ML CARTRIDGE SQ PRN ×3 (07:01→18:18)
[2017-03-09 07:40] VITALS: BP 134/87
[2017-03-09] MEDS: BUDESONIDE RESPULE INH 0.5 MG/2 ML AMPUL.NEB IH SCH ×2 (07:49→21:36)
[2017-03-09] MEDS: POLYVINYL ALCOHOL 15 ML BOTTLE EACHEYE SCH ×4 (08:46→21:49)
[2017-03-09] MEDS: VIT B CMPLX 3/FA/VIT C/BIOTIN 1 TAB TABLET PO SCH (08:46)
[2017-03-09] MEDS: SERTRALINE HCL 25 MG TABLET PO SCH (08:46)
[2017-03-09] MEDS: SITAGLIPTIN PHOSPHATE 25 MG TABLET PO SCH (08:46)
[2017-03-09] MEDS: predniSONE 10 MG TABLET PO SCH (08:46)
[2017-03-09] MEDS: PROSOURCE / PROSTAT (PYXIS) 30 ML UDC PO SCH ×3 (08:46→17:00)
[2017-03-09] MEDS: HEPARIN SODIUM, PORCINE 5000 UNITS/1 ML VIAL SQ SCH ×2 (08:48→21:49)
[2017-03-09] MEDS: HYDROGEN PEROXIDE 480 ML BOTTLE TP SCH ×2 (08:49→21:49)
[2017-03-09] MEDS: ZINC OXIDE 56.7 GM TUBE TP SCH ×2 (08:49→21:49)
[2017-03-09] MEDS: MINERAL OIL/PETROL OINT 396 GM JAR TP SCH ×2 (08:49→21:49)
[2017-03-09] MEDS: BISACODYL SUPP (10 MG) 10 MG/SUPP.RECT SUPP.RECT RC PRN (14:35)
[2017-03-09] MEDS: ONDANSETRON 4 MG TAB.RAPDIS PO PRN ×2 (15:14→18:16)
--- NOTE | 2017-03-09 17:55 | NUR ---
Resident constantly asking to be suctioned and spitting a lot of saliva in his kidney basin, suggested to use Yankauer suction to self suction mouth which he did well. Resident stated he likes it. Endorsed to incoming shift to provide Yankauer daily.
[2017-03-09] MEDS: DOCUSATE SODIUM 100 MG CAPSULE PO SCH (21:49)
[2017-03-09] MEDS: ASCORBIC ACID 500 MG TABLET PO SCH (21:49)
[2017-03-09] MEDS: GABAPENTIN 100 MG CAPSULE PO SCH (21:49)
[2017-03-09] MEDS: MONTELUKAST SODIUM (10MG) 10 MG TABLET PO SCH (21:50)
[2017-03-09] MEDS: TEMAZEPAM 7.5 MG CAPSULE PO SCH (21:50)
[2017-03-09] MEDS: [UNRECOGNIZED DRUG - OTHER] TP SCH (21:50)
[2017-03-09 22:11] VITALS: BP 138/92
[2017-03-10] MEDS: IPRATROPIUM NEB FS 0.5 MG/2.5 ML AMPUL.NEB IH SCH ×4 (01:11→19:31)
[2017-03-10] MEDS: ALBUTEROL FS 2.5 MG/3 ML VIAL.NEB NEB SCH ×4 (01:11→19:31)
[2017-03-10] MEDS: PANTOPRAZOLE 40 MG TABLET.DR PO SCH (05:55)
[2017-03-10] MEDS: BLOOD SUGAR DIAGNOSTIC 1 EACH STRIP VI SCH ×3 (06:40→17:54)
[2017-03-10 07:47] VITALS: BP 143/101
[2017-03-10] MEDS: BUDESONIDE RESPULE INH 0.5 MG/2 ML AMPUL.NEB IH SCH ×2 (08:00→20:04)
[2017-03-10] MEDS: POLYVINYL ALCOHOL 15 ML BOTTLE EACHEYE SCH ×4 (08:43→21:23)
[2017-03-10] MEDS: PROSOURCE / PROSTAT (PYXIS) 30 ML UDC PO SCH ×3 (08:43→17:54)
[2017-03-10] MEDS: SERTRALINE HCL 25 MG TABLET PO SCH (08:43)
[2017-03-10] MEDS: VIT B CMPLX 3/FA/VIT C/BIOTIN 1 TAB TABLET PO SCH (08:43)
[2017-03-10] MEDS: SITAGLIPTIN PHOSPHATE 25 MG TABLET PO SCH (08:43)
[2017-03-10] MEDS: ZINC OXIDE 56.7 GM TUBE TP SCH ×2 (08:44→21:24)
[2017-03-10] MEDS: HEPARIN SODIUM, PORCINE 5000 UNITS/1 ML VIAL SQ SCH ×2 (08:44→21:24)
[2017-03-10] MEDS: MINERAL OIL/PETROL OINT 396 GM JAR TP SCH ×2 (08:44→21:24)
[2017-03-10] MEDS: HYDROGEN PEROXIDE 480 ML BOTTLE TP SCH ×2 (08:44→21:24)
[2017-03-10] MEDS: GUAIFENESIN/D-METHORPHAN HB 5 ML UDC PO PRN (12:14)
[2017-03-10] MEDS: TRAMADOL HCL 50 MG TABLET PO PRN (12:14)
[2017-03-10] MEDS: INSULIN LISPRO/ASPART 100 UNIT/ML CARTRIDGE SQ PRN ×2 (13:07→17:54)
--- NOTE | 2017-03-10 18:00 | NUR ---
Seen by ARONL Petty. Pt complained he has a lot of secretions. He was suctioned while ARNOL Petty was at bedside and she told him he does not really have a lot of secretions. Canister had about 30 cc. Pt complained he has difficulty talking. ARNOL Petty ordered ENT consult.
[2017-03-10] MEDS: ASCORBIC ACID 500 MG TABLET PO SCH (21:23)
[2017-03-10] MEDS: DOCUSATE SODIUM 100 MG CAPSULE PO SCH (21:23)
[2017-03-10] MEDS: GABAPENTIN 100 MG CAPSULE PO SCH (21:24)
[2017-03-10] MEDS: [UNRECOGNIZED DRUG - OTHER] TP SCH (21:24)
[2017-03-10] MEDS: TEMAZEPAM 7.5 MG CAPSULE PO SCH (21:24)
[2017-03-10] MEDS: MONTELUKAST SODIUM (10MG) 10 MG TABLET PO SCH (21:24)
[2017-03-10 22:00] VITALS: BP 142/84
[2017-03-11] MEDS: ALBUTEROL FS 2.5 MG/3 ML VIAL.NEB NEB SCH ×4 (02:28→19:32)
[2017-03-11] MEDS: IPRATROPIUM NEB FS 0.5 MG/2.5 ML AMPUL.NEB IH SCH ×4 (02:28→19:32)
[2017-03-11] MEDS: PANTOPRAZOLE 40 MG TABLET.DR PO SCH (06:06)
[2017-03-11] MEDS: BLOOD SUGAR DIAGNOSTIC 1 EACH STRIP VI SCH ×3 (06:36→16:58)
--- NOTE | 2017-03-11 07:30 | NUR ---
RN OPENING NOTES RECV'D REPORT FROM NOC RN. HOB ELEVATED. AAO4 COOL AEROSOL TRACH COLLAR 100% O2 SATS. PEG OSTOMY DRAIN BAG EMPTY AND CLEAN. PLAN FOR HD TODAY. BED IN LOW LOCKED POSITION. WILL CONT TO MONITOR.
[2017-03-11 07:48] VITALS: BP 162/99
[2017-03-11] MEDS: BUDESONIDE RESPULE INH 0.5 MG/2 ML AMPUL.NEB IH SCH ×2 (08:10→20:07)
[2017-03-11] MEDS: VIT B CMPLX 3/FA/VIT C/BIOTIN 1 TAB TABLET PO SCH (08:49)
[2017-03-11] MEDS: POLYVINYL ALCOHOL 15 ML BOTTLE EACHEYE SCH ×4 (08:50→21:35)
[2017-03-11] MEDS: SITAGLIPTIN PHOSPHATE 25 MG TABLET PO SCH (08:50)
[2017-03-11] MEDS: predniSONE 10 MG TABLET PO SCH (08:50)
[2017-03-11] MEDS: SERTRALINE HCL 25 MG TABLET PO SCH (08:51)
[2017-03-11] MEDS: PROSOURCE / PROSTAT (PYXIS) 30 ML UDC PO SCH ×3 (08:51→16:51)
[2017-03-11] MEDS: HYDROGEN PEROXIDE 480 ML BOTTLE TP SCH ×2 (08:51→21:36)
[2017-03-11] MEDS: HEPARIN SODIUM, PORCINE 5000 UNITS/1 ML VIAL SQ SCH ×2 (08:51→21:36)
[2017-03-11] MEDS: ZINC OXIDE 56.7 GM TUBE TP SCH ×2 (08:51→21:38)
[2017-03-11] MEDS: MINERAL OIL/PETROL OINT 396 GM JAR TP SCH ×2 (08:51→21:36)
[2017-03-11] MEDS: GUAIFENESIN/D-METHORPHAN HB 5 ML UDC PO PRN (09:18)
--- NOTE | 2017-03-11 09:30 | NUR ---
ambulance transport to hd clinic
--- NOTE | 2017-03-11 10:56 | NUR ---
Called [facility] [place]- ; fax: [phone] to follow up on referral. motion picture set up worker was transferred to intake dept. No one answered and SW left a message stating that referral was sent last week and SW was calling to follow up. Left contact information.
--- NOTE | 2017-03-11 12:14 | NUR ---
Informed charge nurse that psychiatrist cannot see the resident because of his insurance. She checked with Dr. Gardner and order will be dc'd. Addendum: 03/11/17 at 1216 by JONNA KING PSYCHOLOGIST NOT PSYCHIATRIST.
--- NOTE | 2017-03-11 14:05 | NUR ---
pt returned post dialysis. aao4. resting comfortably.
[2017-03-11] MEDS: INSULIN LISPRO/ASPART 100 UNIT/ML CARTRIDGE SQ PRN ×2 (14:14→17:29)
--- NOTE | 2017-03-11 15:09 | NUR ---
Called Dr. South's office for ENT consult. Pt verbalized to FILTER TIP CATCHER Radha Petty yesterday that he has difficulty talking. Left message with Rayne.
--- NOTE | 2017-03-11 18:05 | NUR ---
RN CLOSING NOTES PT STABLE THROUGHOUT SHIFT. HOB ELEVATED. COOL AEROSOL TRACH COLLAR 100% O2 SATS. 2.5L REMOVED BY DIALYSIS. BED IN LOW LOCKED POSITION. WILL ENDORSE TO VERONICA RN.
--- NOTE | 2017-03-11 18:54 | NUR ---
Pt was seen earlier this afternoon by QUALIFICATIONS EXAMINER Radhika Hawkins. Received order to do CT abdomen with contrast for epigastric abdominal tenderness/swelling.
[2017-03-11 19:57] VITALS: BP 142/93
[2017-03-11] MEDS: ASCORBIC ACID 500 MG TABLET PO SCH (21:35)
[2017-03-11] MEDS: DOCUSATE SODIUM 100 MG CAPSULE PO SCH (21:35)
[2017-03-11] MEDS: GABAPENTIN 100 MG CAPSULE PO SCH (21:38)
[2017-03-11] MEDS: MONTELUKAST SODIUM (10MG) 10 MG TABLET PO SCH (21:38)
[2017-03-11] MEDS: TEMAZEPAM 7.5 MG CAPSULE PO SCH (21:38)
[2017-03-11] MEDS: [UNRECOGNIZED DRUG - OTHER] TP SCH (21:38)
[2017-03-12] MEDS: IPRATROPIUM NEB FS 0.5 MG/2.5 ML AMPUL.NEB IH SCH ×4 (02:21→20:07)
[2017-03-12] MEDS: ALBUTEROL FS 2.5 MG/3 ML VIAL.NEB NEB SCH ×4 (02:21→20:07)
[2017-03-12] MEDS: PANTOPRAZOLE 40 MG TABLET.DR PO SCH (06:15)
[2017-03-12] MEDS: BLOOD SUGAR DIAGNOSTIC 1 EACH STRIP VI SCH ×3 (07:30→17:29)
[2017-03-12 07:33] VITALS: BP 145/92
[2017-03-12] MEDS: BUDESONIDE RESPULE INH 0.5 MG/2 ML AMPUL.NEB IH SCH ×2 (08:33→20:24)
[2017-03-12] MEDS: POLYVINYL ALCOHOL 15 ML BOTTLE EACHEYE SCH ×4 (08:47→20:58)
[2017-03-12] MEDS: SITAGLIPTIN PHOSPHATE 25 MG TABLET PO SCH (08:47)
[2017-03-12] MEDS: VIT B CMPLX 3/FA/VIT C/BIOTIN 1 TAB TABLET PO SCH (08:48)
[2017-03-12] MEDS: PROSOURCE / PROSTAT (PYXIS) 30 ML UDC PO SCH ×3 (08:48→17:29)
[2017-03-12] MEDS: SERTRALINE HCL 25 MG TABLET PO SCH (08:48)
[2017-03-12] MEDS: HYDROGEN PEROXIDE 480 ML BOTTLE TP SCH ×2 (08:49→20:58)
[2017-03-12] MEDS: MINERAL OIL/PETROL OINT 396 GM JAR TP SCH ×2 (08:49→20:58)
[2017-03-12] MEDS: ZINC OXIDE 56.7 GM TUBE TP SCH ×2 (08:49→20:58)
[2017-03-12] MEDS: HEPARIN SODIUM, PORCINE 5000 UNITS/1 ML VIAL SQ SCH ×2 (09:00→20:58)
--- NOTE | 2017-03-12 09:28 | NUR ---
Received a call from [facility]. She said they will do the CTscan today and the patient needs to be NPO for atleast 4 hrs. Explained to the patient. He refused to do CT scan. Explained the benefits of CT scan but still refused. Notified [facility] [employer].
--- NOTE | 2017-03-12 10:25 | NUR ---
Spoke with ARNOL Garrido and notified her that the patient refused for CT scan. She said thats okay. Order for cT randolph Preston'd
[2017-03-12] MEDS: INSULIN LISPRO/ASPART 100 UNIT/ML CARTRIDGE SQ PRN (11:50)
--- NOTE | 2017-03-12 13:34 | NUR ---
Seen by Dr. South and gave an order for Video swallowing for Dysphagia. Addendum: 03/12/17 at 1906 by ELIZABETH BAKER RN Patient complained of difficulty in talking and swallowing. Dr. South saw the patient ordered for Video swallowing with speech for dysphagia
[2017-03-12] MEDS: BISACODYL SUPP (10 MG) 10 MG/SUPP.RECT SUPP.RECT RC PRN (16:00)
[2017-03-12] MEDS: MAG HYDROX/AL HYDROX/SIMETH 30 ML UDC PO PRN (19:05)
[2017-03-12] MEDS: DOCUSATE SODIUM 100 MG CAPSULE PO SCH (20:58)
[2017-03-12] MEDS: ASCORBIC ACID 500 MG TABLET PO SCH (20:58)
[2017-03-12] MEDS: GUAIFENESIN/D-METHORPHAN HB 5 ML UDC PO PRN (21:00)
[2017-03-12] MEDS: TEMAZEPAM 7.5 MG CAPSULE PO SCH (22:23)
[2017-03-12] MEDS: GABAPENTIN 100 MG CAPSULE PO SCH (22:23)
[2017-03-12] MEDS: [UNRECOGNIZED DRUG - OTHER] TP SCH (22:23)
[2017-03-12] MEDS: MONTELUKAST SODIUM (10MG) 10 MG TABLET PO SCH (22:23)
[2017-03-13] MEDS: ALBUTEROL FS 2.5 MG/3 ML VIAL.NEB NEB SCH ×4 (01:39→19:10)
[2017-03-13] MEDS: IPRATROPIUM NEB FS 0.5 MG/2.5 ML AMPUL.NEB IH SCH ×4 (01:39→19:10)
[2017-03-13] MEDS: PANTOPRAZOLE 40 MG TABLET.DR PO SCH (06:14)
[2017-03-13] MEDS: BLOOD SUGAR DIAGNOSTIC 1 EACH STRIP VI SCH ×3 (07:12→17:26)
[2017-03-13] MEDS: INSULIN LISPRO/ASPART 100 UNIT/ML CARTRIDGE SQ PRN ×2 (07:13→17:26)
[2017-03-13 07:54] VITALS: BP 145/93
[2017-03-13] MEDS: VIT B CMPLX 3/FA/VIT C/BIOTIN 1 TAB TABLET PO SCH (08:28)
[2017-03-13] MEDS: SERTRALINE HCL 25 MG TABLET PO SCH (08:28)
[2017-03-13] MEDS: POLYVINYL ALCOHOL 15 ML BOTTLE EACHEYE SCH ×4 (08:28→20:45)
[2017-03-13] MEDS: PROSOURCE / PROSTAT (PYXIS) 30 ML UDC PO SCH ×3 (08:28→17:26)
[2017-03-13] MEDS: predniSONE 10 MG TABLET PO SCH (08:28)
[2017-03-13] MEDS: SITAGLIPTIN PHOSPHATE 25 MG TABLET PO SCH (08:28)
[2017-03-13] MEDS: HEPARIN SODIUM, PORCINE 5000 UNITS/1 ML VIAL SQ SCH ×2 (08:29→20:46)
[2017-03-13] MEDS: HYDROGEN PEROXIDE 480 ML BOTTLE TP SCH ×2 (08:29→20:46)
[2017-03-13] MEDS: MINERAL OIL/PETROL OINT 396 GM JAR TP SCH ×2 (08:29→20:46)
[2017-03-13] MEDS: ZINC OXIDE 56.7 GM TUBE TP SCH ×2 (08:29→20:46)
[2017-03-13 08:31] VITALS: BP 139/98
[2017-03-13] MEDS: BUDESONIDE RESPULE INH 0.5 MG/2 ML AMPUL.NEB IH SCH ×2 (08:35→21:00)
[2017-03-13] MEDS: NAPROXEN 500 MG TABLET PO PRN ×2 (08:53→20:46)
--- NOTE | 2017-03-13 09:54 | NUR ---
Called [facility]- ; fax: [phone] to follow up on referral. long term care social worker was transferred to intake dept. No one answered and FERNANDO left a message stating that referral was sent last week and FERNANDO was calling to follow up. Also stated that FERNANDO called 2 days ago but has not heard back from anyone. Left contact information. FERNANDO will follow up.
[2017-03-13] MEDS: TRAMADOL HCL 50 MG TABLET PO PRN (14:16)
--- NOTE | 2017-03-13 15:20 | NUR ---
Called [facility] [facility]- ; fax: [phone] to follow up on referral and spoke to Yazan. He stated that he did not get the referral and asked FERNANDO to resend to fax # [phone] rather than to the main fax line. FERNANDO re-sent referral again. FERNANDO will follow up and Yazan will check eligibility.
[2017-03-13] MEDS: BISACODYL SUPP (10 MG) 10 MG/SUPP.RECT SUPP.RECT RC PRN (17:26)
[2017-03-13 19:35] VITALS: BP 130/82
[2017-03-13] MEDS: DOCUSATE SODIUM 100 MG CAPSULE PO SCH (20:45)
[2017-03-13] MEDS: ASCORBIC ACID 500 MG TABLET PO SCH (20:45)
[2017-03-13] MEDS: GUAIFENESIN/D-METHORPHAN HB 5 ML UDC PO PRN (20:46)
[2017-03-13] MEDS: [UNRECOGNIZED DRUG - OTHER] TP SCH (22:07)
[2017-03-13] MEDS: MONTELUKAST SODIUM (10MG) 10 MG TABLET PO SCH (22:07)
[2017-03-13] MEDS: GABAPENTIN 100 MG CAPSULE PO SCH (22:07)
[2017-03-13] MEDS: TEMAZEPAM 7.5 MG CAPSULE PO SCH (22:07)
[2017-03-14] MEDS: IPRATROPIUM NEB FS 0.5 MG/2.5 ML AMPUL.NEB IH SCH ×4 (01:45→19:55)
[2017-03-14] MEDS: ALBUTEROL FS 2.5 MG/3 ML VIAL.NEB NEB SCH ×4 (01:45→19:55)
[2017-03-14] MEDS: PANTOPRAZOLE 40 MG TABLET.DR PO SCH (06:46)
[2017-03-14] MEDS: BLOOD SUGAR DIAGNOSTIC 1 EACH STRIP VI SCH ×3 (06:47→17:14)
[2017-03-14] MEDS: INSULIN LISPRO/ASPART 100 UNIT/ML CARTRIDGE SQ PRN ×2 (06:47→12:47)
[2017-03-14] MEDS: BUDESONIDE RESPULE INH 0.5 MG/2 ML AMPUL.NEB IH SCH ×2 (08:23→21:00)
[2017-03-14] MEDS: PROSOURCE / PROSTAT (PYXIS) 30 ML UDC PO SCH ×3 (08:35→17:14)
[2017-03-14] MEDS: POLYVINYL ALCOHOL 15 ML BOTTLE EACHEYE SCH ×4 (08:35→21:57)
[2017-03-14] MEDS: VIT B CMPLX 3/FA/VIT C/BIOTIN 1 TAB TABLET PO SCH (08:35)
[2017-03-14] MEDS: SERTRALINE HCL 25 MG TABLET PO SCH (08:35)
[2017-03-14] MEDS: SITAGLIPTIN PHOSPHATE 25 MG TABLET PO SCH (08:35)
[2017-03-14] MEDS: ZINC OXIDE 56.7 GM TUBE TP SCH ×2 (08:36→21:57)
[2017-03-14] MEDS: MINERAL OIL/PETROL OINT 396 GM JAR TP SCH ×2 (08:36→21:57)
[2017-03-14] MEDS: HYDROGEN PEROXIDE 480 ML BOTTLE TP SCH ×2 (08:36→21:57)
[2017-03-14] MEDS: HEPARIN SODIUM, PORCINE 5000 UNITS/1 ML VIAL SQ SCH ×2 (08:36→21:57)
--- NOTE | 2017-03-14 10:30 | NUR ---
Received a call from radiology asking if resident is able to sit up in the wheelchair for swallow evaluation however when checked with resident, he wants to do it a little later. Speech therapist spoke with resident and both decided that it will be done on Friday. Endorsed.
[2017-03-14] MEDS: GUAIFENESIN/D-METHORPHAN HB 5 ML UDC PO PRN ×2 (13:45→21:58)
[2017-03-14 20:08] VITALS: BP 144/87
[2017-03-14] MEDS: ATARAX 25 MG PO PRN (21:34)
[2017-03-14] MEDS: ASCORBIC ACID 500 MG TABLET PO SCH (21:57)
[2017-03-14] MEDS: DOCUSATE SODIUM 100 MG CAPSULE PO SCH (21:57)
[2017-03-14] MEDS: MAG HYDROX/AL HYDROX/SIMETH 30 ML UDC PO PRN (21:57)
[2017-03-14] MEDS: MONTELUKAST SODIUM (10MG) 10 MG TABLET PO SCH (22:06)
[2017-03-14] MEDS: GABAPENTIN 100 MG CAPSULE PO SCH (22:06)
[2017-03-14] MEDS: TEMAZEPAM 7.5 MG CAPSULE PO SCH (22:06)
[2017-03-14] MEDS: [UNRECOGNIZED DRUG - OTHER] TP SCH (22:06)
[2017-03-14] MEDS: NAPROXEN 500 MG TABLET PO PRN (22:35)
[2017-03-15] MEDS: ALBUTEROL FS 2.5 MG/3 ML VIAL.NEB NEB SCH ×4 (01:30→20:36)
[2017-03-15] MEDS: IPRATROPIUM NEB FS 0.5 MG/2.5 ML AMPUL.NEB IH SCH ×4 (01:30→20:36)
[2017-03-15] MEDS: PANTOPRAZOLE 40 MG TABLET.DR PO SCH (05:59)
[2017-03-15] MEDS: BLOOD SUGAR DIAGNOSTIC 1 EACH STRIP VI SCH ×3 (07:02→16:43)
[2017-03-15] MEDS: INSULIN LISPRO/ASPART 100 UNIT/ML CARTRIDGE SQ PRN ×2 (07:03→16:43)
[2017-03-15 07:41] VITALS: BP 131/73
[2017-03-15] MEDS: BUDESONIDE RESPULE INH 0.5 MG/2 ML AMPUL.NEB IH SCH ×2 (08:18→20:36)
[2017-03-15] MEDS: SITAGLIPTIN PHOSPHATE 25 MG TABLET PO SCH (08:34)
[2017-03-15] MEDS: POLYVINYL ALCOHOL 15 ML BOTTLE EACHEYE SCH ×4 (08:34→20:41)
[2017-03-15] MEDS: PROSOURCE / PROSTAT (PYXIS) 30 ML UDC PO SCH ×3 (08:35→16:43)
[2017-03-15] MEDS: predniSONE 10 MG TABLET PO SCH (08:35)
[2017-03-15] MEDS: VIT B CMPLX 3/FA/VIT C/BIOTIN 1 TAB TABLET PO SCH (08:35)
[2017-03-15] MEDS: SERTRALINE HCL 25 MG TABLET PO SCH (08:35)
[2017-03-15] MEDS: HYDROGEN PEROXIDE 480 ML BOTTLE TP SCH ×2 (08:36→20:42)
[2017-03-15] MEDS: MINERAL OIL/PETROL OINT 396 GM JAR TP SCH ×2 (08:36→20:42)
[2017-03-15] MEDS: HEPARIN SODIUM, PORCINE 5000 UNITS/1 ML VIAL SQ SCH ×2 (08:36→20:42)
[2017-03-15] MEDS: ZINC OXIDE 56.7 GM TUBE TP SCH ×2 (08:36→20:42)
[2017-03-15] MEDS: BISACODYL SUPP (10 MG) 10 MG/SUPP.RECT SUPP.RECT RC PRN (15:54)
[2017-03-15] MEDS: MAG HYDROX/AL HYDROX/SIMETH 30 ML UDC PO PRN (17:55)
[2017-03-15 20:29] VITALS: BP 136/87
[2017-03-15] MEDS: ASCORBIC ACID 500 MG TABLET PO SCH (20:41)
[2017-03-15] MEDS: DOCUSATE SODIUM 100 MG CAPSULE PO SCH (20:41)
[2017-03-15] MEDS: GUAIFENESIN/D-METHORPHAN HB 5 ML UDC PO PRN (20:47)
[2017-03-15] MEDS: NAPROXEN 500 MG TABLET PO PRN (20:47)
[2017-03-15] MEDS: [UNRECOGNIZED DRUG - OTHER] TP SCH (22:10)
[2017-03-15] MEDS: TEMAZEPAM 7.5 MG CAPSULE PO SCH (22:10)
[2017-03-15] MEDS: MONTELUKAST SODIUM (10MG) 10 MG TABLET PO SCH (22:10)
[2017-03-15] MEDS: GABAPENTIN 100 MG CAPSULE PO SCH (22:10)
[2017-03-16] MEDS: IPRATROPIUM NEB FS 0.5 MG/2.5 ML AMPUL.NEB IH SCH ×4 (00:46→20:10)
[2017-03-16] MEDS: ALBUTEROL FS 2.5 MG/3 ML VIAL.NEB NEB SCH ×4 (00:46→20:10)
[2017-03-16] MEDS: GUAIFENESIN/D-METHORPHAN HB 5 ML UDC PO PRN ×2 (06:14→15:37)
[2017-03-16] MEDS: PANTOPRAZOLE 40 MG TABLET.DR PO SCH (06:14)
[2017-03-16] MEDS: BLOOD SUGAR DIAGNOSTIC 1 EACH STRIP VI SCH ×3 (06:46→17:55)
[2017-03-16] MEDS: INSULIN LISPRO/ASPART 100 UNIT/ML CARTRIDGE SQ PRN ×2 (06:47→17:56)
[2017-03-16] MEDS: POLYVINYL ALCOHOL 15 ML BOTTLE EACHEYE SCH ×4 (08:05→21:31)
[2017-03-16] MEDS: VIT B CMPLX 3/FA/VIT C/BIOTIN 1 TAB TABLET PO SCH (08:06)
[2017-03-16] MEDS: SITAGLIPTIN PHOSPHATE 25 MG TABLET PO SCH (08:06)
[2017-03-16] MEDS: SERTRALINE HCL 25 MG TABLET PO SCH (08:07)
[2017-03-16] MEDS: PROSOURCE / PROSTAT (PYXIS) 30 ML UDC PO SCH ×3 (08:07→17:00)
[2017-03-16 08:17] VITALS: BP 123/66
[2017-03-16] MEDS: BUDESONIDE RESPULE INH 0.5 MG/2 ML AMPUL.NEB IH SCH ×2 (08:20→21:00)
[2017-03-16] MEDS: HEPARIN SODIUM, PORCINE 5000 UNITS/1 ML VIAL SQ SCH ×2 (09:00→21:32)
[2017-03-16] MEDS: MINERAL OIL/PETROL OINT 396 GM JAR TP SCH ×2 (09:00→21:32)
[2017-03-16] MEDS: HYDROGEN PEROXIDE 480 ML BOTTLE TP SCH ×2 (09:00→21:32)
[2017-03-16] MEDS: ZINC OXIDE 56.7 GM TUBE TP SCH ×2 (09:00→21:32)
[2017-03-16] MEDS: ASCORBIC ACID 500 MG TABLET PO SCH (21:31)
[2017-03-16] MEDS: DOCUSATE SODIUM 100 MG CAPSULE PO SCH (21:31)
[2017-03-16] MEDS: [UNRECOGNIZED DRUG - OTHER] TP SCH (21:32)
[2017-03-16] MEDS: GABAPENTIN 100 MG CAPSULE PO SCH (21:32)
[2017-03-16] MEDS: MONTELUKAST SODIUM (10MG) 10 MG TABLET PO SCH (21:32)
[2017-03-16] MEDS: TEMAZEPAM 7.5 MG CAPSULE PO SCH (21:32)
[2017-03-16 23:03] VITALS: BP 141/94
[2017-03-17] MEDS: IPRATROPIUM NEB FS 0.5 MG/2.5 ML AMPUL.NEB IH SCH ×4 (02:16→19:30)
[2017-03-17] MEDS: ALBUTEROL FS 2.5 MG/3 ML VIAL.NEB NEB SCH ×4 (02:17→19:30)
[2017-03-17] MEDS: PANTOPRAZOLE 40 MG TABLET.DR PO SCH (06:24)
[2017-03-17] MEDS: BLOOD SUGAR DIAGNOSTIC 1 EACH STRIP VI SCH ×3 (06:35→16:57)
[2017-03-17] MEDS: BUDESONIDE RESPULE INH 0.5 MG/2 ML AMPUL.NEB IH SCH ×2 (08:19→21:06)
[2017-03-17] MEDS: predniSONE 10 MG TABLET PO SCH (08:31)
[2017-03-17] MEDS: PROSOURCE / PROSTAT (PYXIS) 30 ML UDC PO SCH ×3 (08:31→16:57)
[2017-03-17] MEDS: SITAGLIPTIN PHOSPHATE 25 MG TABLET PO SCH (08:31)
[2017-03-17] MEDS: SERTRALINE HCL 25 MG TABLET PO SCH (08:31)
[2017-03-17] MEDS: POLYVINYL ALCOHOL 15 ML BOTTLE EACHEYE SCH ×4 (08:31→21:22)
[2017-03-17] MEDS: VIT B CMPLX 3/FA/VIT C/BIOTIN 1 TAB TABLET PO SCH (08:31)
[2017-03-17] MEDS: HEPARIN SODIUM, PORCINE 5000 UNITS/1 ML VIAL SQ SCH ×2 (08:44→21:23)
[2017-03-17] MEDS: NAPROXEN 500 MG TABLET PO PRN (08:44)
[2017-03-17 08:45] VITALS: BP 150/94
[2017-03-17] MEDS: ZINC OXIDE 56.7 GM TUBE TP SCH ×2 (09:00→21:23)
[2017-03-17] MEDS: HYDROGEN PEROXIDE 480 ML BOTTLE TP SCH ×2 (09:00→21:23)
[2017-03-17] MEDS: MINERAL OIL/PETROL OINT 396 GM JAR TP SCH ×2 (09:00→21:23)
[2017-03-17] MEDS ORDERED: BARIUM SULFATE 148 GM SUSP.RECON PO ONE (11:56)
[2017-03-17] MEDS ORDERED: BARIUM SULFATE 240 ML ORAL.SUSP PO ONE (11:56)
[2017-03-17] MEDS: INSULIN LISPRO/ASPART 100 UNIT/ML CARTRIDGE SQ PRN ×2 (12:38→16:59)
--- NOTE | 2017-03-17 13:00 | NUR ---
Relayed video swallow result to ARNOL Garrido. No new order.
--- NOTE | 2017-03-17 18:44 | NUR ---
Seen by ARNOL Petty. Notified her of video swallow result. Pt told her that he is fine. ARNOL Petty ordered to have speech therapist work with pt to help him with his speech.
[2017-03-17 20:08] VITALS: BP 148/90
[2017-03-17] MEDS: DOCUSATE SODIUM 100 MG CAPSULE PO SCH (21:22)
[2017-03-17] MEDS: MONTELUKAST SODIUM (10MG) 10 MG TABLET PO SCH (21:23)
[2017-03-17] MEDS: TEMAZEPAM 7.5 MG CAPSULE PO SCH (21:23)
[2017-03-17] MEDS: GABAPENTIN 100 MG CAPSULE PO SCH (21:23)
[2017-03-17] MEDS: ASCORBIC ACID 500 MG TABLET PO SCH (21:23)
[2017-03-17] MEDS: [UNRECOGNIZED DRUG - OTHER] TP SCH (21:24)
[2017-03-18] MEDS: ALBUTEROL FS 2.5 MG/3 ML VIAL.NEB NEB SCH ×4 (02:07→19:42)
[2017-03-18] MEDS: IPRATROPIUM NEB FS 0.5 MG/2.5 ML AMPUL.NEB IH SCH ×4 (02:07→19:42)
[2017-03-18] MEDS: PANTOPRAZOLE 40 MG TABLET.DR PO SCH (05:58)
[2017-03-18] MEDS: BLOOD SUGAR DIAGNOSTIC 1 EACH STRIP VI SCH ×3 (06:45→17:18)
[2017-03-18 07:57] VITALS: BP 149/88
[2017-03-18] MEDS: POLYVINYL ALCOHOL 15 ML BOTTLE EACHEYE SCH ×4 (08:20→21:31)
[2017-03-18] MEDS: PROSOURCE / PROSTAT (PYXIS) 30 ML UDC PO SCH ×3 (08:20→17:00)
[2017-03-18] MEDS: SERTRALINE HCL 25 MG TABLET PO SCH (08:20)
[2017-03-18] MEDS: VIT B CMPLX 3/FA/VIT C/BIOTIN 1 TAB TABLET PO SCH (08:20)
[2017-03-18] MEDS: SITAGLIPTIN PHOSPHATE 25 MG TABLET PO SCH (08:20)
[2017-03-18] MEDS: MINERAL OIL/PETROL OINT 396 GM JAR TP SCH ×2 (08:21→21:32)
[2017-03-18] MEDS: ZINC OXIDE 56.7 GM TUBE TP SCH ×2 (08:21→21:32)
[2017-03-18] MEDS: HEPARIN SODIUM, PORCINE 5000 UNITS/1 ML VIAL SQ SCH ×2 (08:21→21:32)
[2017-03-18] MEDS: BUDESONIDE RESPULE INH 0.5 MG/2 ML AMPUL.NEB IH SCH ×2 (08:30→19:42)
[2017-03-18] MEDS: GUAIFENESIN/D-METHORPHAN HB 5 ML UDC PO PRN (08:34)
[2017-03-18] MEDS: HYDROGEN PEROXIDE 480 ML BOTTLE TP SCH ×2 (14:00→21:32)
[2017-03-18] MEDS: INSULIN LISPRO/ASPART 100 UNIT/ML CARTRIDGE SQ PRN (17:15)
[2017-03-18 21:11] VITALS: BP 159/90
[2017-03-18] MEDS: DOCUSATE SODIUM 100 MG CAPSULE PO SCH (21:31)
[2017-03-18] MEDS: ASCORBIC ACID 500 MG TABLET PO SCH (21:31)
[2017-03-18] MEDS: MONTELUKAST SODIUM (10MG) 10 MG TABLET PO SCH (21:32)
[2017-03-18] MEDS: [UNRECOGNIZED DRUG - OTHER] TP SCH (21:32)
[2017-03-18] MEDS: GABAPENTIN 100 MG CAPSULE PO SCH (21:32)
[2017-03-18] MEDS: TEMAZEPAM 7.5 MG CAPSULE PO SCH (21:32)
[2017-03-19] MEDS: ALBUTEROL FS 2.5 MG/3 ML VIAL.NEB NEB SCH ×4 (01:35→20:17)
[2017-03-19] MEDS: IPRATROPIUM NEB FS 0.5 MG/2.5 ML AMPUL.NEB IH SCH ×4 (01:35→20:17)
[2017-03-19] MEDS: PANTOPRAZOLE 40 MG TABLET.DR PO SCH (06:06)
[2017-03-19 08:00] VITALS: BP 138/94
[2017-03-19] MEDS: BLOOD SUGAR DIAGNOSTIC 1 EACH STRIP VI SCH ×3 (08:19→17:29)
[2017-03-19] MEDS: POLYVINYL ALCOHOL 15 ML BOTTLE EACHEYE SCH ×4 (08:19→20:55)
[2017-03-19] MEDS: SITAGLIPTIN PHOSPHATE 25 MG TABLET PO SCH (08:20)
[2017-03-19] MEDS: VIT B CMPLX 3/FA/VIT C/BIOTIN 1 TAB TABLET PO SCH (08:20)
[2017-03-19] MEDS: predniSONE 10 MG TABLET PO SCH (08:21)
[2017-03-19] MEDS: PROSOURCE / PROSTAT (PYXIS) 30 ML UDC PO SCH ×3 (08:22→17:00)
[2017-03-19] MEDS: HEPARIN SODIUM, PORCINE 5000 UNITS/1 ML VIAL SQ SCH ×2 (08:22→20:56)
[2017-03-19] MEDS: SERTRALINE HCL 25 MG TABLET PO SCH (08:22)
[2017-03-19] MEDS: MINERAL OIL/PETROL OINT 396 GM JAR TP SCH ×2 (08:23→20:56)
[2017-03-19] MEDS: ZINC OXIDE 56.7 GM TUBE TP SCH ×2 (08:23→20:56)
[2017-03-19] MEDS: GUAIFENESIN/D-METHORPHAN HB 5 ML UDC PO PRN ×2 (08:24→20:56)
[2017-03-19] MEDS: RENAL NOVASOURCE (8OZ) 1 EA BOX PO PRN (08:25)
[2017-03-19] MEDS: BUDESONIDE RESPULE INH 0.5 MG/2 ML AMPUL.NEB IH SCH ×2 (09:09→20:48)
--- NOTE | 2017-03-19 09:18 | NUR ---
Seen by speech therapist, she said patient complaining of difficulty speaking because he tries to speak long sentences and this is the reason why he gets short of breath. Per therapist she will work with him a couple of times and focus on talking slow using short sentences. She also mentioned that patient told him he wants to go home and eventually weaned off from his trach. This will be discussed with Dr. Gardner during IDT meeting. SSD aware.
[2017-03-19] MEDS: HYDROGEN PEROXIDE 480 ML BOTTLE TP SCH ×2 (10:00→20:56)
--- NOTE | 2017-03-19 10:59 | NUR ---
WOUND CARE CONSULT: PT SEEN FOR PATCHY AREAS ON BILATERAL ARMS. DEFER TO MD. PT STATES THAT HE HAS PSORIASIS. WILL SEE PRN.
[2017-03-19] MEDS: INSULIN LISPRO/ASPART 100 UNIT/ML CARTRIDGE SQ PRN ×2 (12:06→17:32)
--- NOTE | 2017-03-19 15:05 | NUR ---
Informed by charge nurse if Dr. Prem Cloud can come and see the resident for patchy areas on bilateral arms. SW spoke to Dr. Amaro and he stated that he can come and see the resident tomorrow. Charge nurse informed.
--- NOTE | 2017-03-19 15:08 | NUR ---
Called [facility] [facility]- ; fax: [phone] to follow up on referral. Asked to speak to Yazan, which the social media designer spoke with last week. No one answered and SW left a voicemail indicating that she was calling to follow up to see if resident will qualify for a wheelchair using his current insurance. SW left call back information. FERNANDO will attempt to contact again at a later time.
--- NOTE | 2017-03-19 17:33 | NUR ---
Seen and examined by Ross Garrido, resident denies any vomiting or episode of nausea, no c/o abdominal pain. Informed Radhika that Dr. Amaro will take a look at patient's skin (patchy area in the arms and legs) tomorrow. She said to ask if Dr. Amaro can take a look at the old GT site because it is not healing. Endorsed.
--- NOTE | 2017-03-19 17:38 | NUR ---
Patient reported he does not feel good, he feels tired. When asked if he has been sleeping well at night? He admitted the he does not sleep well at night because they suction him every hour. If he does not get suctioned, he feels like he is choking. He claims it takes him two hours to go back to sleep and the sleeping pill works after 5 AM. Instructed patient to inform dialysis center to pull more water from his body and will endorse to incoming shift to do some interventions that promotes an environment to make him sleep faster.
[2017-03-19] MEDS: CLONIDINE HCL 0.1 MG TABLET PO PRN (18:01)
--- NOTE | 2017-03-19 18:50 | NUR ---
Resident refused prostat,offered x3,explained risk and benefits.continue to monitor.charge nurse aware.
--- NOTE | 2017-03-19 18:53 | NUR ---
Clonidine PRN given for elevated blood pressure of 158/94.complaints of dizziness .denied chest pain.charge nurse aware.continue to monitor.
[2017-03-19] MEDS: ASCORBIC ACID 500 MG TABLET PO SCH (20:55)
[2017-03-19] MEDS: DOCUSATE SODIUM 100 MG CAPSULE PO SCH (20:55)
[2017-03-19] MEDS: GABAPENTIN 100 MG CAPSULE PO SCH (21:10)
[2017-03-19] MEDS: [UNRECOGNIZED DRUG - OTHER] TP SCH (21:11)
[2017-03-19] MEDS: TEMAZEPAM 7.5 MG CAPSULE PO SCH (21:11)
[2017-03-19] MEDS: MONTELUKAST SODIUM (10MG) 10 MG TABLET PO SCH (21:11)
[2017-03-20] VITALS: BP 122/60
[2017-03-20] MEDS: ALBUTEROL FS 2.5 MG/3 ML VIAL.NEB NEB SCH ×4 (01:16→19:38)
[2017-03-20] MEDS: IPRATROPIUM NEB FS 0.5 MG/2.5 ML AMPUL.NEB IH SCH ×4 (01:16→19:37)
[2017-03-20] MEDS: PANTOPRAZOLE 40 MG TABLET.DR PO SCH (06:24)
[2017-03-20] MEDS: GUAIFENESIN/D-METHORPHAN HB 5 ML UDC PO PRN ×2 (06:24→20:47)
[2017-03-20] MEDS: BLOOD SUGAR DIAGNOSTIC 1 EACH STRIP VI SCH ×3 (07:30→17:14)
[2017-03-20 07:40] VITALS: BP 136/80
[2017-03-20] MEDS: BUDESONIDE RESPULE INH 0.5 MG/2 ML AMPUL.NEB IH SCH ×2 (08:17→20:14)
[2017-03-20] MEDS: VIT B CMPLX 3/FA/VIT C/BIOTIN 1 TAB TABLET PO SCH (09:05)
[2017-03-20] MEDS: SITAGLIPTIN PHOSPHATE 25 MG TABLET PO SCH (09:05)
[2017-03-20] MEDS: PROSOURCE / PROSTAT (PYXIS) 30 ML UDC PO SCH ×3 (09:05→17:14)
[2017-03-20] MEDS: POLYVINYL ALCOHOL 15 ML BOTTLE EACHEYE SCH ×4 (09:05→20:45)
[2017-03-20] MEDS: SERTRALINE HCL 25 MG TABLET PO SCH (09:05)
[2017-03-20] MEDS: HEPARIN SODIUM, PORCINE 5000 UNITS/1 ML VIAL SQ SCH ×2 (09:06→20:47)
[2017-03-20] MEDS: MINERAL OIL/PETROL OINT 396 GM JAR TP SCH ×2 (09:06→20:47)
[2017-03-20] MEDS: ZINC OXIDE 56.7 GM TUBE TP SCH ×2 (09:07→20:47)
[2017-03-20] MEDS: MAG HYDROX/AL HYDROX/SIMETH 30 ML UDC PO PRN ×2 (09:07→15:09)
[2017-03-20] MEDS: HYDROGEN PEROXIDE 480 ML BOTTLE TP SCH ×2 (09:07→20:47)
--- NOTE | 2017-03-20 09:32 | NUR ---
Received a call from Yazan ([employer] [employer]- ; fax: [phone]) . He stated that he will re-run eligibility to see if there is a co-pay for the resident to get a wheelchair. He stated that he should qualify but SW asked him to make sure and to determine if there is a co-pay for the resident. He stated that he will get back to the social economist.
--- NOTE | 2017-03-20 10:57 | NUR ---
Requested Dr. Prem Cloud to see pt for reddish discolorations on the arms and legs. Also asked him to take a look at pt's old GT site that has not closed per LACQU[employer] SHADER Radhika Hawkins's request. Pt at [facility] right now. Dr. Prem Cloud said he will come back later to see the pt.
[2017-03-20] MEDS: INSULIN LISPRO/ASPART 100 UNIT/ML CARTRIDGE SQ PRN (13:51)
[2017-03-20] MEDS: TRAMADOL HCL 50 MG TABLET PO PRN (15:10)
[2017-03-20] MEDS: BISACODYL SUPP (10 MG) 10 MG/SUPP.RECT SUPP.RECT RC PRN (15:10)
--- NOTE | 2017-03-20 15:45 | NUR ---
horticultural farmworker spoke to Yazan from [facility] [employer] [facility] and he stated that the resident does not have a copay and qualifies for a wheelchair. Spoke to charge nurse to see if we can get an order for resident to get a wheelchair. Informed the resident who stated that he will not need the wheelchair once he goes home since he will be walking but FERNANDO explained to him that he can use it as a backup if needed and that it will be available for him. He acknowledged. FERNANDO will inform Yazan from [facility] about setting evaluation appt for him.
[2017-03-20 20:09] VITALS: BP 140/87
[2017-03-20] MEDS: DOCUSATE SODIUM 100 MG CAPSULE PO SCH (20:45)
[2017-03-20] MEDS: ASCORBIC ACID 500 MG TABLET PO SCH (20:46)
[2017-03-20] MEDS: TEMAZEPAM 7.5 MG CAPSULE PO SCH (21:03)
[2017-03-20] MEDS: [UNRECOGNIZED DRUG - OTHER] TP SCH (21:03)
[2017-03-20] MEDS: GABAPENTIN 100 MG CAPSULE PO SCH (21:03)
[2017-03-20] MEDS: MONTELUKAST SODIUM (10MG) 10 MG TABLET PO SCH (21:03)
[2017-03-21] MEDS: ALBUTEROL FS 2.5 MG/3 ML VIAL.NEB NEB SCH ×4 (02:24→19:42)
[2017-03-21] MEDS: IPRATROPIUM NEB FS 0.5 MG/2.5 ML AMPUL.NEB IH SCH ×4 (02:24→19:42)
[2017-03-21] MEDS: GUAIFENESIN/D-METHORPHAN HB 5 ML UDC PO PRN ×2 (03:18→20:38)
[2017-03-21] MEDS: PANTOPRAZOLE 40 MG TABLET.DR PO SCH (05:17)
[2017-03-21] MEDS: BLOOD SUGAR DIAGNOSTIC 1 EACH STRIP VI SCH ×3 (06:36→17:12)
[2017-03-21] MEDS: INSULIN LISPRO/ASPART 100 UNIT/ML CARTRIDGE SQ PRN ×3 (06:36→17:13)
[2017-03-21 07:43] VITALS: BP 146/92
[2017-03-21] MEDS: BUDESONIDE RESPULE INH 0.5 MG/2 ML AMPUL.NEB IH SCH ×2 (08:02→20:04)
--- NOTE | 2017-03-21 08:55 | NUR ---
industrial services worker spoke to Yazan from [employer]. Yazan informed FERNANDO that he has to speak to his preventative maintenance technician to see when he can come out and do the evaluation. FERNANDO stated to him that resident is at dialysis Friday, , and Friday's so evaluation has to take place on alternative days. He stated that he will call social media specialist to schedule evaluation once he speaks to his preventative maintenance technician.
[2017-03-21] MEDS: SITAGLIPTIN PHOSPHATE 25 MG TABLET PO SCH (08:59)
[2017-03-21] MEDS: POLYVINYL ALCOHOL 15 ML BOTTLE EACHEYE SCH ×4 (08:59→20:37)
[2017-03-21] MEDS: predniSONE 10 MG TABLET PO SCH (09:00)
[2017-03-21] MEDS: HYDROGEN PEROXIDE 480 ML BOTTLE TP SCH ×2 (09:00→20:38)
[2017-03-21] MEDS: SERTRALINE HCL 25 MG TABLET PO SCH (09:00)
[2017-03-21] MEDS: ZINC OXIDE 56.7 GM TUBE TP SCH ×2 (09:00→20:38)
[2017-03-21] MEDS: PROSOURCE / PROSTAT (PYXIS) 30 ML UDC PO SCH ×3 (09:00→17:12)
[2017-03-21] MEDS: MINERAL OIL/PETROL OINT 396 GM JAR TP SCH ×2 (09:00→20:38)
[2017-03-21] MEDS: HEPARIN SODIUM, PORCINE 5000 UNITS/1 ML VIAL SQ SCH ×2 (09:00→20:37)
[2017-03-21] MEDS: VIT B CMPLX 3/FA/VIT C/BIOTIN 1 TAB TABLET PO SCH (09:00)
[2017-03-21] MEDS: ASCORBIC ACID 500 MG TABLET PO SCH (20:37)
[2017-03-21] MEDS: DOCUSATE SODIUM 100 MG CAPSULE PO SCH (20:37)
[2017-03-21 20:41] VITALS: BP 152/92
[2017-03-21] MEDS: GABAPENTIN 100 MG CAPSULE PO SCH (21:09)
[2017-03-21] MEDS: TEMAZEPAM 7.5 MG CAPSULE PO SCH (21:09)
[2017-03-21] MEDS: MONTELUKAST SODIUM (10MG) 10 MG TABLET PO SCH (21:10)
[2017-03-21] MEDS: [UNRECOGNIZED DRUG - OTHER] TP SCH (21:10)
[2017-03-22] MEDS: ALBUTEROL FS 2.5 MG/3 ML VIAL.NEB NEB SCH ×4 (02:13→19:34)
[2017-03-22] MEDS: IPRATROPIUM NEB FS 0.5 MG/2.5 ML AMPUL.NEB IH SCH ×4 (02:13→19:34)
[2017-03-22] MEDS: PANTOPRAZOLE 40 MG TABLET.DR PO SCH (05:11)
[2017-03-22] MEDS: BLOOD SUGAR DIAGNOSTIC 1 EACH STRIP VI SCH ×3 (06:48→17:20)
[2017-03-22] MEDS: INSULIN LISPRO/ASPART 100 UNIT/ML CARTRIDGE SQ PRN (06:48)
[2017-03-22] MEDS: SITAGLIPTIN PHOSPHATE 25 MG TABLET PO SCH (08:35)
[2017-03-22] MEDS: POLYVINYL ALCOHOL 15 ML BOTTLE EACHEYE SCH ×4 (08:35→20:38)
[2017-03-22] MEDS: VIT B CMPLX 3/FA/VIT C/BIOTIN 1 TAB TABLET PO SCH (08:35)
[2017-03-22] MEDS: PROSOURCE / PROSTAT (PYXIS) 30 ML UDC PO SCH ×3 (08:35→17:00)
[2017-03-22] MEDS: SERTRALINE HCL 25 MG TABLET PO SCH (08:35)
[2017-03-22] MEDS: HYDROGEN PEROXIDE 480 ML BOTTLE TP SCH ×2 (08:36→20:38)
[2017-03-22] MEDS: ZINC OXIDE 56.7 GM TUBE TP SCH ×2 (08:36→20:38)
[2017-03-22] MEDS: MINERAL OIL/PETROL OINT 396 GM JAR TP SCH ×2 (08:36→20:38)
[2017-03-22] MEDS: HEPARIN SODIUM, PORCINE 5000 UNITS/1 ML VIAL SQ SCH ×2 (08:36→20:38)
[2017-03-22] MEDS: BUDESONIDE RESPULE INH 0.5 MG/2 ML AMPUL.NEB IH SCH ×2 (08:53→21:02)
[2017-03-22] MEDS: ATROPINE SULFATE OPHTH SOLN 15 ML BOTTLE SL PRN (09:06)
[2017-03-22] MEDS: ATARAX 25 MG PO PRN (13:30)
[2017-03-22] MEDS: GUAIFENESIN/D-METHORPHAN HB 5 ML UDC PO PRN ×2 (13:30→20:39)
[2017-03-22] MEDS: DOCUSATE SODIUM 100 MG CAPSULE PO SCH (20:38)
[2017-03-22] MEDS: ASCORBIC ACID 500 MG TABLET PO SCH (20:38)
[2017-03-22 20:39] VITALS: BP 136/83
[2017-03-22] MEDS: GABAPENTIN 100 MG CAPSULE PO SCH (21:08)
[2017-03-22] MEDS: TEMAZEPAM 7.5 MG CAPSULE PO SCH (21:08)
[2017-03-22] MEDS: MONTELUKAST SODIUM (10MG) 10 MG TABLET PO SCH (21:08)
[2017-03-22] MEDS: [UNRECOGNIZED DRUG - OTHER] TP SCH (21:08)
[2017-03-23] MEDS: ALBUTEROL FS 2.5 MG/3 ML VIAL.NEB NEB SCH ×4 (01:52→19:27)
[2017-03-23] MEDS: IPRATROPIUM NEB FS 0.5 MG/2.5 ML AMPUL.NEB IH SCH ×4 (01:52→19:26)
[2017-03-23] MEDS: PANTOPRAZOLE 40 MG TABLET.DR PO SCH (05:16)
[2017-03-23] MEDS: BLOOD SUGAR DIAGNOSTIC 1 EACH STRIP VI SCH ×3 (06:44→16:33)
[2017-03-23] MEDS: INSULIN LISPRO/ASPART 100 UNIT/ML CARTRIDGE SQ PRN ×3 (06:44→17:06)
[2017-03-23 07:31] VITALS: BP 148/90
[2017-03-23] MEDS: HEPARIN SODIUM, PORCINE 5000 UNITS/1 ML VIAL SQ SCH ×2 (09:00→20:58)
[2017-03-23] MEDS: POLYVINYL ALCOHOL 15 ML BOTTLE EACHEYE SCH ×4 (09:11→20:57)
[2017-03-23] MEDS: PROSOURCE / PROSTAT (PYXIS) 30 ML UDC PO SCH ×3 (09:19→17:07)
[2017-03-23] MEDS: SITAGLIPTIN PHOSPHATE 25 MG TABLET PO SCH (09:19)
[2017-03-23] MEDS: predniSONE 10 MG TABLET PO SCH (09:19)
[2017-03-23] MEDS: SERTRALINE HCL 25 MG TABLET PO SCH (09:19)
[2017-03-23] MEDS: VIT B CMPLX 3/FA/VIT C/BIOTIN 1 TAB TABLET PO SCH (09:19)
[2017-03-23] MEDS: ZINC OXIDE 56.7 GM TUBE TP SCH ×2 (09:22→20:58)
[2017-03-23] MEDS: MINERAL OIL/PETROL OINT 396 GM JAR TP SCH ×2 (09:22→20:58)
[2017-03-23] MEDS: HYDROGEN PEROXIDE 480 ML BOTTLE TP SCH ×2 (09:22→20:58)
[2017-03-23] MEDS: BUDESONIDE RESPULE INH 0.5 MG/2 ML AMPUL.NEB IH SCH ×2 (09:57→21:00)
[2017-03-23] MEDS: GUAIFENESIN/D-METHORPHAN HB 5 ML UDC PO PRN ×2 (11:46→20:58)
[2017-03-23 20:06] VITALS: BP 134/83
[2017-03-23] MEDS: DOCUSATE SODIUM 100 MG CAPSULE PO SCH (20:57)
[2017-03-23] MEDS: ASCORBIC ACID 500 MG TABLET PO SCH (20:57)
[2017-03-23] MEDS: [UNRECOGNIZED DRUG - OTHER] TP SCH (21:00)
[2017-03-23] MEDS: GABAPENTIN 100 MG CAPSULE PO SCH (21:00)
[2017-03-23] MEDS: TEMAZEPAM 7.5 MG CAPSULE PO SCH (21:00)
[2017-03-23] MEDS: MONTELUKAST SODIUM (10MG) 10 MG TABLET PO SCH (21:00)
[2017-03-24] MEDS: IPRATROPIUM NEB FS 0.5 MG/2.5 ML AMPUL.NEB IH SCH ×4 (01:18→19:28)
[2017-03-24] MEDS: ALBUTEROL FS 2.5 MG/3 ML VIAL.NEB NEB SCH ×4 (01:18→19:28)
[2017-03-24] MEDS: PANTOPRAZOLE 40 MG TABLET.DR PO SCH (06:36)
[2017-03-24] MEDS: BLOOD SUGAR DIAGNOSTIC 1 EACH STRIP VI SCH ×3 (06:36→16:57)
[2017-03-24] MEDS: BUDESONIDE RESPULE INH 0.5 MG/2 ML AMPUL.NEB IH SCH ×2 (08:12→21:00)
[2017-03-24] MEDS: POLYVINYL ALCOHOL 15 ML BOTTLE EACHEYE SCH ×4 (08:44→21:27)
[2017-03-24] MEDS: SERTRALINE HCL 25 MG TABLET PO SCH (08:45)
[2017-03-24] MEDS: SITAGLIPTIN PHOSPHATE 25 MG TABLET PO SCH (08:45)
[2017-03-24] MEDS: PROSOURCE / PROSTAT (PYXIS) 30 ML UDC PO SCH ×3 (08:45→16:57)
[2017-03-24] MEDS: VIT B CMPLX 3/FA/VIT C/BIOTIN 1 TAB TABLET PO SCH (08:45)
[2017-03-24] MEDS: ZINC OXIDE 56.7 GM TUBE TP SCH ×2 (08:46→21:28)
[2017-03-24] MEDS: HEPARIN SODIUM, PORCINE 5000 UNITS/1 ML VIAL SQ SCH ×2 (08:46→21:28)
[2017-03-24] MEDS: MINERAL OIL/PETROL OINT 396 GM JAR TP SCH ×2 (08:46→21:28)
[2017-03-24] MEDS: HYDROGEN PEROXIDE 480 ML BOTTLE TP SCH ×2 (08:46→21:28)
[2017-03-24] MEDS: GUAIFENESIN/D-METHORPHAN HB 5 ML UDC PO PRN (08:50)
[2017-03-24 08:59] VITALS: BP 144/89
[2017-03-24] MEDS: INSULIN LISPRO/ASPART 100 UNIT/ML CARTRIDGE SQ PRN (12:19)
[2017-03-24] MEDS: ONDANSETRON 4 MG TAB.RAPDIS PO PRN (12:33)
[2017-03-24] MEDS: RENAL NOVASOURCE (8OZ) 1 EA BOX PO PRN (16:57)
[2017-03-24 20:02] VITALS: BP 132/80
[2017-03-24] MEDS: ASCORBIC ACID 500 MG TABLET PO SCH (21:27)
[2017-03-24] MEDS: DOCUSATE SODIUM 100 MG CAPSULE PO SCH (21:27)
[2017-03-24] MEDS: MONTELUKAST SODIUM (10MG) 10 MG TABLET PO SCH (21:28)
[2017-03-24] MEDS: GABAPENTIN 100 MG CAPSULE PO SCH (21:28)
[2017-03-24] MEDS: [UNRECOGNIZED DRUG - OTHER] TP SCH (21:28)
[2017-03-24] MEDS: TEMAZEPAM 7.5 MG CAPSULE PO SCH (21:28)
[2017-03-25] MEDS: ALBUTEROL FS 2.5 MG/3 ML VIAL.NEB NEB SCH ×4 (01:22→19:12)
[2017-03-25] MEDS: IPRATROPIUM NEB FS 0.5 MG/2.5 ML AMPUL.NEB IH SCH ×4 (01:22→19:12)
[2017-03-25] MEDS: PANTOPRAZOLE 40 MG TABLET.DR PO SCH (05:56)
[2017-03-25 08:01] VITALS: BP 144/93
[2017-03-25] MEDS: BLOOD SUGAR DIAGNOSTIC 1 EACH STRIP VI SCH ×3 (08:09→17:38)
[2017-03-25] MEDS: ZINC OXIDE 56.7 GM TUBE TP SCH ×2 (08:16→21:06)
[2017-03-25] MEDS: HYDROGEN PEROXIDE 480 ML BOTTLE TP SCH ×2 (08:16→21:06)
[2017-03-25] MEDS: SITAGLIPTIN PHOSPHATE 25 MG TABLET PO SCH (08:16)
[2017-03-25] MEDS: MINERAL OIL/PETROL OINT 396 GM JAR TP SCH ×2 (08:16→21:06)
[2017-03-25] MEDS: POLYVINYL ALCOHOL 15 ML BOTTLE EACHEYE SCH ×4 (08:16→21:06)
[2017-03-25] MEDS: SERTRALINE HCL 25 MG TABLET PO SCH (08:16)
[2017-03-25] MEDS: HEPARIN SODIUM, PORCINE 5000 UNITS/1 ML VIAL SQ SCH ×2 (08:16→21:06)
[2017-03-25] MEDS: VIT B CMPLX 3/FA/VIT C/BIOTIN 1 TAB TABLET PO SCH (08:16)
[2017-03-25] MEDS: predniSONE 10 MG TABLET PO SCH (08:16)
[2017-03-25] MEDS: PROSOURCE / PROSTAT (PYXIS) 30 ML UDC PO SCH ×3 (08:16→17:38)
[2017-03-25] MEDS: NAPROXEN 500 MG TABLET PO PRN (08:18)
[2017-03-25] MEDS: GUAIFENESIN/D-METHORPHAN HB 5 ML UDC PO PRN ×3 (08:18→21:07)
[2017-03-25] MEDS: BUDESONIDE RESPULE INH 0.5 MG/2 ML AMPUL.NEB IH SCH ×2 (08:28→21:04)
[2017-03-25] MEDS: INSULIN LISPRO/ASPART 100 UNIT/ML CARTRIDGE SQ PRN (17:39)
[2017-03-25 19:53] VITALS: BP 130/77
[2017-03-25] MEDS: DOCUSATE SODIUM 100 MG CAPSULE PO SCH (21:06)
[2017-03-25] MEDS: GABAPENTIN 100 MG CAPSULE PO SCH (21:06)
[2017-03-25] MEDS: ASCORBIC ACID 500 MG TABLET PO SCH (21:06)
[2017-03-25] MEDS: MONTELUKAST SODIUM (10MG) 10 MG TABLET PO SCH (21:06)
[2017-03-25] MEDS: TEMAZEPAM 7.5 MG CAPSULE PO SCH (21:06)
[2017-03-25] MEDS: [UNRECOGNIZED DRUG - OTHER] TP SCH (21:07)
[2017-03-26] MEDS: IPRATROPIUM NEB FS 0.5 MG/2.5 ML AMPUL.NEB IH SCH ×4 (01:48→19:37)
[2017-03-26] MEDS: ALBUTEROL FS 2.5 MG/3 ML VIAL.NEB NEB SCH ×4 (01:48→19:37)
[2017-03-26] MEDS: PANTOPRAZOLE 40 MG TABLET.DR PO SCH (06:04)
[2017-03-26] MEDS: BLOOD SUGAR DIAGNOSTIC 1 EACH STRIP VI SCH ×3 (07:38→17:25)
[2017-03-26 07:58] VITALS: BP 116/70
[2017-03-26] MEDS: BUDESONIDE RESPULE INH 0.5 MG/2 ML AMPUL.NEB IH SCH ×2 (08:16→19:37)
[2017-03-26] MEDS: VIT B CMPLX 3/FA/VIT C/BIOTIN 1 TAB TABLET PO SCH (08:23)
[2017-03-26] MEDS: SERTRALINE HCL 25 MG TABLET PO SCH (08:23)
[2017-03-26] MEDS: SITAGLIPTIN PHOSPHATE 25 MG TABLET PO SCH (08:23)
[2017-03-26] MEDS: POLYVINYL ALCOHOL 15 ML BOTTLE EACHEYE SCH ×4 (08:23→21:47)
[2017-03-26] MEDS: PROSOURCE / PROSTAT (PYXIS) 30 ML UDC PO SCH ×3 (08:23→17:25)
[2017-03-26] MEDS: MINERAL OIL/PETROL OINT 396 GM JAR TP SCH ×2 (08:23→21:47)
[2017-03-26] MEDS: HEPARIN SODIUM, PORCINE 5000 UNITS/1 ML VIAL SQ SCH ×2 (08:24→21:47)
[2017-03-26] MEDS: HYDROGEN PEROXIDE 480 ML BOTTLE TP SCH ×2 (08:28→21:47)
[2017-03-26] MEDS: ZINC OXIDE 56.7 GM TUBE TP SCH ×2 (09:00→21:47)
[2017-03-26] MEDS: BISACODYL SUPP (10 MG) 10 MG/SUPP.RECT SUPP.RECT RC PRN (10:52)
[2017-03-26] MEDS: GUAIFENESIN/D-METHORPHAN HB 5 ML UDC PO PRN ×2 (10:52→18:43)
--- NOTE | 2017-03-26 10:57 | NUR ---
Spoke to Yazan again from [facility]. He stated that he rechecked the resident's eligibility and that they do not have a contract with [facility] and that unfortunately they cannot continue with the process. FERNANDO called [facility] ( ) and spoke with Amanda. She stated that she can run the resident's insurance to see what the insurance will authorize. She stated that she will check eligibility and will notify the administrator social welfare.
--- NOTE | 2017-03-26 12:00 | NUR ---
Resident is non-compliance of using call light. in spite of giving education to use call light instead of banging the table ,resident is still not following the directions.re-educate the resident.continue to monitor.
[2017-03-26] MEDS: INSULIN LISPRO/ASPART 100 UNIT/ML CARTRIDGE SQ PRN ×2 (12:34→17:26)
--- NOTE | 2017-03-26 15:10 | NUR ---
Informed by NAT Karimi to write an order for wheelchair authorization for resident ,She told that the resident is eligible for a light weight manual wheelchair,waiting for authorization.noted and carried out the order.
--- NOTE | 2017-03-26 15:19 | NUR ---
Kanwal spoke to Amanda from [facility] ( ). She stated that the resident is eligible for a light weight manual wheelchair with no co-pay and prescription is needed. Charge nurse informed of order for light weight manual wheelchair and the resident's diagnosis. Amanda stated that once she gets that they can ask for authorization from the insurance. KANWAL will follow up and fax order once it is signed by physician.
[2017-03-26 20:33] VITALS: BP 161/97
[2017-03-26] MEDS: GABAPENTIN 100 MG CAPSULE PO SCH (21:47)
[2017-03-26] MEDS: [UNRECOGNIZED DRUG - OTHER] TP SCH (21:47)
[2017-03-26] MEDS: MONTELUKAST SODIUM (10MG) 10 MG TABLET PO SCH (21:47)
[2017-03-26] MEDS: ASCORBIC ACID 500 MG TABLET PO SCH (21:47)
[2017-03-26] MEDS: TEMAZEPAM 7.5 MG CAPSULE PO SCH (21:47)
[2017-03-26] MEDS: DOCUSATE SODIUM 100 MG CAPSULE PO SCH (21:47)
[2017-03-27] MEDS: IPRATROPIUM NEB FS 0.5 MG/2.5 ML AMPUL.NEB IH SCH ×4 (00:44→19:30)
[2017-03-27] MEDS: ALBUTEROL FS 2.5 MG/3 ML VIAL.NEB NEB SCH ×4 (00:44→21:44)
[2017-03-27] MEDS: GUAIFENESIN/D-METHORPHAN HB 5 ML UDC PO PRN ×3 (03:23→21:31)
[2017-03-27] MEDS: PANTOPRAZOLE 40 MG TABLET.DR PO SCH (06:03)
[2017-03-27 07:37] VITALS: BP 146/96
[2017-03-27] MEDS: POLYVINYL ALCOHOL 15 ML BOTTLE EACHEYE SCH ×4 (08:10→21:28)
[2017-03-27] MEDS: predniSONE 10 MG TABLET PO SCH (08:10)
[2017-03-27] MEDS: SERTRALINE HCL 25 MG TABLET PO SCH (08:10)
[2017-03-27] MEDS: SITAGLIPTIN PHOSPHATE 25 MG TABLET PO SCH (08:10)
[2017-03-27] MEDS: BLOOD SUGAR DIAGNOSTIC 1 EACH STRIP VI SCH ×3 (08:10→16:51)
[2017-03-27] MEDS: VIT B CMPLX 3/FA/VIT C/BIOTIN 1 TAB TABLET PO SCH (08:10)
[2017-03-27] MEDS: PROSOURCE / PROSTAT (PYXIS) 30 ML UDC PO SCH ×3 (08:10→16:51)
[2017-03-27] MEDS: HEPARIN SODIUM, PORCINE 5000 UNITS/1 ML VIAL SQ SCH ×2 (08:11→21:29)
[2017-03-27] MEDS: MINERAL OIL/PETROL OINT 396 GM JAR TP SCH ×2 (08:11→21:29)
[2017-03-27] MEDS: HYDROGEN PEROXIDE 480 ML BOTTLE TP SCH ×2 (08:23→21:29)
[2017-03-27] MEDS: ZINC OXIDE 56.7 GM TUBE TP SCH ×2 (08:23→21:29)
[2017-03-27] MEDS: BUDESONIDE RESPULE INH 0.5 MG/2 ML AMPUL.NEB IH SCH ×2 (08:29→21:44)
[2017-03-27] MEDS: NAPROXEN 500 MG TABLET PO PRN (16:51)
[2017-03-27] MEDS: ATARAX 25 MG PO PRN (16:53)
[2017-03-27] MEDS: INSULIN LISPRO/ASPART 100 UNIT/ML CARTRIDGE SQ PRN (16:54)
[2017-03-27] MEDS: ASCORBIC ACID 500 MG TABLET PO SCH (21:28)
[2017-03-27] MEDS: DOCUSATE SODIUM 100 MG CAPSULE PO SCH (21:28)
[2017-03-27] MEDS: TEMAZEPAM 7.5 MG CAPSULE PO SCH (21:30)
[2017-03-27] MEDS: GABAPENTIN 100 MG CAPSULE PO SCH (21:30)
[2017-03-27] MEDS: MONTELUKAST SODIUM (10MG) 10 MG TABLET PO SCH (21:31)
[2017-03-27] MEDS: [UNRECOGNIZED DRUG - OTHER] TP SCH (21:31)
[2017-03-27 22:51] VITALS: BP 130/81
[2017-03-28] MEDS: IPRATROPIUM NEB FS 0.5 MG/2.5 ML AMPUL.NEB IH SCH ×4 (01:09→19:30)
[2017-03-28] MEDS: ALBUTEROL FS 2.5 MG/3 ML VIAL.NEB NEB SCH ×4 (01:09→19:30)
[2017-03-28] MEDS: PANTOPRAZOLE 40 MG TABLET.DR PO SCH (05:20)
[2017-03-28] MEDS: BLOOD SUGAR DIAGNOSTIC 1 EACH STRIP VI SCH ×3 (06:42→18:17)
[2017-03-28] MEDS: INSULIN LISPRO/ASPART 100 UNIT/ML CARTRIDGE SQ PRN ×2 (06:43→12:03)
[2017-03-28 07:38] VITALS: BP 138/82
[2017-03-28] MEDS: BUDESONIDE RESPULE INH 0.5 MG/2 ML AMPUL.NEB IH SCH ×2 (08:10→21:10)
[2017-03-28] MEDS: PROSOURCE / PROSTAT (PYXIS) 30 ML UDC PO SCH ×3 (09:00→17:00)
[2017-03-28] MEDS: SITAGLIPTIN PHOSPHATE 25 MG TABLET PO SCH (09:00)
[2017-03-28] MEDS: HYDROGEN PEROXIDE 480 ML BOTTLE TP SCH ×2 (09:00→21:11)
[2017-03-28] MEDS: SERTRALINE HCL 25 MG TABLET PO SCH (09:00)
[2017-03-28] MEDS: HEPARIN SODIUM, PORCINE 5000 UNITS/1 ML VIAL SQ SCH ×2 (09:00→21:10)
[2017-03-28] MEDS: MINERAL OIL/PETROL OINT 396 GM JAR TP SCH ×2 (09:00→21:10)
[2017-03-28] MEDS: POLYVINYL ALCOHOL 15 ML BOTTLE EACHEYE SCH ×4 (09:00→21:10)
[2017-03-28] MEDS: ZINC OXIDE 56.7 GM TUBE TP SCH ×2 (09:00→21:11)
[2017-03-28] MEDS: VIT B CMPLX 3/FA/VIT C/BIOTIN 1 TAB TABLET PO SCH (09:00)
[2017-03-28] MEDS: GUAIFENESIN/D-METHORPHAN HB 5 ML UDC PO PRN ×2 (12:02→21:11)
[2017-03-28 20:08] VITALS: BP 136/89
[2017-03-28] MEDS: ASCORBIC ACID 500 MG TABLET PO SCH (21:10)
[2017-03-28] MEDS: DOCUSATE SODIUM 100 MG CAPSULE PO SCH (21:10)
[2017-03-28] MEDS: [UNRECOGNIZED DRUG - OTHER] TP SCH (21:11)
[2017-03-28] MEDS: MONTELUKAST SODIUM (10MG) 10 MG TABLET PO SCH (21:11)
[2017-03-28] MEDS: GABAPENTIN 100 MG CAPSULE PO SCH (21:11)
[2017-03-28] MEDS: TEMAZEPAM 7.5 MG CAPSULE PO SCH (21:11)
[2017-03-29] MEDS: IPRATROPIUM NEB FS 0.5 MG/2.5 ML AMPUL.NEB IH SCH ×4 (01:35→19:30)
[2017-03-29] MEDS: ALBUTEROL FS 2.5 MG/3 ML VIAL.NEB NEB SCH ×4 (01:35→19:30)
[2017-03-29] MEDS: PANTOPRAZOLE 40 MG TABLET.DR PO SCH (05:42)
[2017-03-29] MEDS: BLOOD SUGAR DIAGNOSTIC 1 EACH STRIP VI SCH ×3 (06:48→16:36)
[2017-03-29] MEDS: INSULIN LISPRO/ASPART 100 UNIT/ML CARTRIDGE SQ PRN ×2 (06:48→16:37)
[2017-03-29] MEDS: BUDESONIDE RESPULE INH 0.5 MG/2 ML AMPUL.NEB IH SCH ×2 (08:17→20:43)
[2017-03-29] MEDS: VIT B CMPLX 3/FA/VIT C/BIOTIN 1 TAB TABLET PO SCH (08:27)
[2017-03-29] MEDS: predniSONE 10 MG TABLET PO SCH (08:27)
[2017-03-29] MEDS: SERTRALINE HCL 25 MG TABLET PO SCH (08:27)
[2017-03-29] MEDS: PROSOURCE / PROSTAT (PYXIS) 30 ML UDC PO SCH ×3 (08:27→16:36)
[2017-03-29] MEDS: POLYVINYL ALCOHOL 15 ML BOTTLE EACHEYE SCH ×4 (08:27→21:21)
[2017-03-29] MEDS: SITAGLIPTIN PHOSPHATE 25 MG TABLET PO SCH (08:27)
[2017-03-29] MEDS: MINERAL OIL/PETROL OINT 396 GM JAR TP SCH ×2 (08:28→21:21)
[2017-03-29] MEDS: HEPARIN SODIUM, PORCINE 5000 UNITS/1 ML VIAL SQ SCH ×2 (09:00→21:21)
[2017-03-29] MEDS: ZINC OXIDE 56.7 GM TUBE TP SCH ×2 (15:28→21:21)
[2017-03-29] MEDS: HYDROGEN PEROXIDE 480 ML BOTTLE TP SCH ×2 (15:28→21:21)
[2017-03-29] MEDS: BISACODYL SUPP (10 MG) 10 MG/SUPP.RECT SUPP.RECT RC PRN (15:29)
[2017-03-29] MEDS: GUAIFENESIN/D-METHORPHAN HB 5 ML UDC PO PRN ×2 (15:29→21:22)
[2017-03-29 20:44] VITALS: BP 144/87
[2017-03-29] MEDS: DOCUSATE SODIUM 100 MG CAPSULE PO SCH (21:21)
[2017-03-29] MEDS: TEMAZEPAM 7.5 MG CAPSULE PO SCH (21:21)
[2017-03-29] MEDS: ASCORBIC ACID 500 MG TABLET PO SCH (21:21)
[2017-03-29] MEDS: GABAPENTIN 100 MG CAPSULE PO SCH (21:21)
[2017-03-29] MEDS: MONTELUKAST SODIUM (10MG) 10 MG TABLET PO SCH (21:22)
[2017-03-29] MEDS: [UNRECOGNIZED DRUG - OTHER] TP SCH (21:22)
[2017-03-30] MEDS: ALBUTEROL FS 2.5 MG/3 ML VIAL.NEB NEB SCH ×4 (02:15→20:45)
[2017-03-30] MEDS: IPRATROPIUM NEB FS 0.5 MG/2.5 ML AMPUL.NEB IH SCH ×4 (02:15→20:45)
[2017-03-30] MEDS: PANTOPRAZOLE 40 MG TABLET.DR PO SCH (05:27)
[2017-03-30] MEDS: INSULIN LISPRO/ASPART 100 UNIT/ML CARTRIDGE SQ PRN ×2 (06:36→12:20)
[2017-03-30] MEDS: BLOOD SUGAR DIAGNOSTIC 1 EACH STRIP VI SCH ×3 (06:36→17:31)
[2017-03-30 07:45] VITALS: BP 161/104
[2017-03-30] MEDS: BUDESONIDE RESPULE INH 0.5 MG/2 ML AMPUL.NEB IH SCH ×2 (08:32→20:45)
[2017-03-30] MEDS: SITAGLIPTIN PHOSPHATE 25 MG TABLET PO SCH (09:05)
[2017-03-30] MEDS: PROSOURCE / PROSTAT (PYXIS) 30 ML UDC PO SCH ×3 (09:05→17:31)
[2017-03-30] MEDS: POLYVINYL ALCOHOL 15 ML BOTTLE EACHEYE SCH ×4 (09:05→21:00)
[2017-03-30] MEDS: VIT B CMPLX 3/FA/VIT C/BIOTIN 1 TAB TABLET PO SCH (09:05)
[2017-03-30] MEDS: SERTRALINE HCL 25 MG TABLET PO SCH (09:05)
[2017-03-30] MEDS: HEPARIN SODIUM, PORCINE 5000 UNITS/1 ML VIAL SQ SCH ×2 (09:06→20:35)
[2017-03-30] MEDS: ZINC OXIDE 56.7 GM TUBE TP SCH ×2 (09:06→21:00)
[2017-03-30] MEDS: MINERAL OIL/PETROL OINT 396 GM JAR TP SCH ×2 (09:06→21:00)
[2017-03-30] MEDS: HYDROGEN PEROXIDE 480 ML BOTTLE TP SCH ×2 (09:06→21:00)
[2017-03-30] MEDS: GUAIFENESIN/D-METHORPHAN HB 5 ML UDC PO PRN ×2 (12:19→20:31)
[2017-03-30] MEDS: ATROPINE SULFATE OPHTH SOLN 15 ML BOTTLE SL PRN (17:32)
[2017-03-30 20:13] VITALS: BP 137/79
[2017-03-30] MEDS: CLONIDINE HCL 0.1 MG TABLET PO PRN (20:32)
[2017-03-30] MEDS: ASCORBIC ACID 500 MG TABLET PO SCH (20:33)
[2017-03-30] MEDS: DOCUSATE SODIUM 100 MG CAPSULE PO SCH (21:00)
--- NOTE | 2017-03-30 21:30 | NUR ---
wl=300/106 p=76, no sob, no acute distress, breathing even and unlabored, no s/s of pain and discomfort, clonidine 0.1mg po given and effective post 1 hr ey=338/76 p=62. Will continue to monitor
[2017-03-30] MEDS: TEMAZEPAM 7.5 MG CAPSULE PO SCH (22:51)
[2017-03-30] MEDS: MONTELUKAST SODIUM (10MG) 10 MG TABLET PO SCH (22:51)
[2017-03-30] MEDS: GABAPENTIN 100 MG CAPSULE PO SCH (22:51)
[2017-03-30] MEDS: [UNRECOGNIZED DRUG - OTHER] TP SCH (22:52)
[2017-03-31] MEDS: IPRATROPIUM NEB FS 0.5 MG/2.5 ML AMPUL.NEB IH SCH ×4 (02:12→19:30)
[2017-03-31] MEDS: ALBUTEROL FS 2.5 MG/3 ML VIAL.NEB NEB SCH ×4 (02:12→19:30)
[2017-03-31] MEDS: PANTOPRAZOLE 40 MG TABLET.DR PO SCH (06:28)
[2017-03-31] MEDS: BLOOD SUGAR DIAGNOSTIC 1 EACH STRIP VI SCH ×3 (06:30→17:06)
[2017-03-31] MEDS: GUAIFENESIN/D-METHORPHAN HB 5 ML UDC PO PRN ×3 (06:31→21:08)
[2017-03-31 07:51] VITALS: BP 145/92
[2017-03-31] MEDS: BUDESONIDE RESPULE INH 0.5 MG/2 ML AMPUL.NEB IH SCH ×2 (08:02→20:38)
[2017-03-31] MEDS: POLYVINYL ALCOHOL 15 ML BOTTLE EACHEYE SCH ×4 (09:00→21:06)
[2017-03-31] MEDS: SERTRALINE HCL 25 MG TABLET PO SCH (09:19)
[2017-03-31] MEDS: SITAGLIPTIN PHOSPHATE 25 MG TABLET PO SCH (09:19)
[2017-03-31] MEDS: VIT B CMPLX 3/FA/VIT C/BIOTIN 1 TAB TABLET PO SCH (09:19)
[2017-03-31] MEDS: predniSONE 10 MG TABLET PO SCH (09:19)
[2017-03-31] MEDS: PROSOURCE / PROSTAT (PYXIS) 30 ML UDC PO SCH ×3 (09:19→17:00)
[2017-03-31] MEDS: MINERAL OIL/PETROL OINT 396 GM JAR TP SCH ×2 (09:20→21:07)
[2017-03-31] MEDS: HEPARIN SODIUM, PORCINE 5000 UNITS/1 ML VIAL SQ SCH ×2 (09:20→21:07)
--- NOTE | 2017-03-31 11:05 | NUR ---
made rounds and seen the pt and no new orders noted.
[2017-03-31] MEDS: INSULIN LISPRO/ASPART 100 UNIT/ML CARTRIDGE SQ PRN ×2 (12:55→17:07)
[2017-03-31] MEDS: BISACODYL SUPP (10 MG) 10 MG/SUPP.RECT SUPP.RECT RC PRN (14:36)
[2017-03-31] MEDS: HYDROGEN PEROXIDE 480 ML BOTTLE TP SCH ×2 (17:06→21:07)
[2017-03-31] MEDS: ZINC OXIDE 56.7 GM TUBE TP SCH ×2 (17:06→21:07)
[2017-03-31 20:21] VITALS: BP 155/89
[2017-03-31] MEDS: DOCUSATE SODIUM 100 MG CAPSULE PO SCH (21:06)
[2017-03-31] MEDS: ASCORBIC ACID 500 MG TABLET PO SCH (21:06)
[2017-03-31] MEDS: TEMAZEPAM 7.5 MG CAPSULE PO SCH (21:07)
[2017-03-31] MEDS: GABAPENTIN 100 MG CAPSULE PO SCH (21:07)
[2017-03-31] MEDS: MONTELUKAST SODIUM (10MG) 10 MG TABLET PO SCH (21:07)
[2017-03-31] MEDS: [UNRECOGNIZED DRUG - OTHER] TP SCH (21:07)
[2017-04-01] MEDS: IPRATROPIUM NEB FS 0.5 MG/2.5 ML AMPUL.NEB IH SCH ×2 (00:48→07:23)
[2017-04-01] MEDS: ALBUTEROL FS 2.5 MG/3 ML VIAL.NEB NEB SCH ×2 (00:48→07:23)
[2017-04-01] MEDS: PANTOPRAZOLE 40 MG TABLET.DR PO SCH (06:04)
[2017-04-01] MEDS: BLOOD SUGAR DIAGNOSTIC 1 EACH STRIP VI SCH (07:41)
[2017-04-01] MEDS: HYDROGEN PEROXIDE 480 ML BOTTLE TP SCH (08:09)
[2017-04-01] MEDS: VIT B CMPLX 3/FA/VIT C/BIOTIN 1 TAB TABLET PO SCH (08:09)
[2017-04-01] MEDS: ZINC OXIDE 56.7 GM TUBE TP SCH (08:09)
[2017-04-01] MEDS: SERTRALINE HCL 25 MG TABLET PO SCH (08:09)
[2017-04-01] MEDS: SITAGLIPTIN PHOSPHATE 25 MG TABLET PO SCH (08:09)
[2017-04-01] MEDS: POLYVINYL ALCOHOL 15 ML BOTTLE EACHEYE SCH (08:09)
[2017-04-01] MEDS: MINERAL OIL/PETROL OINT 396 GM JAR TP SCH (08:09)
[2017-04-01] MEDS: HEPARIN SODIUM, PORCINE 5000 UNITS/1 ML VIAL SQ SCH (08:12)
[2017-04-01] MEDS: PROSOURCE / PROSTAT (PYXIS) 30 ML UDC PO SCH (08:15)
[2017-04-01] MEDS: GUAIFENESIN/D-METHORPHAN HB 5 ML UDC PO PRN (08:18)
== END 2017-03-30 23:59 | disposition still patient (30) | DRG 133 ==
LOC: SA
PROVIDERS: ADMIT Internal Medicine Nephrology; ATTEND Internal Medicine Nephrology
DX: J96.11 Chronic respiratory failure with hypoxia (principal); K31.6 Fistula of stomach and duodenum; N18.6 End stage renal disease; J44.9 Chronic obstructive pulmonary disease, unspecified; I12.0 Hypertensive chronic kidney disease with stage 5 chronic kidney disease or end stage renal disease; L03.311 Cellulitis of abdominal wall; E11.9 Type 2 diabetes mellitus without complications; J20.9 Acute bronchitis, unspecified; D64.9 Anemia, unspecified; J96.12 Chronic respiratory failure with hypercapnia; Z99.2 Dependence on renal dialysis; Z72.0 Tobacco use; J45.909 Unspecified asthma, uncomplicated
CPT/HCPCS: 31720; 36415; 36600; 71010-TC; 74230-TC; 76700-TC; 80048-TC; 80076-TC; 82272-TC; 82306; 82803-TC; 82962-TC; 83690-TC; 83735-TC; 84100-TC; 86580-TC; 92507-TC; 92521; 94003-TC; 94640-TC; 94762-TC; 94799-TC; A4216; A4623; A6253; A6402; A7526; J1644; J1815; J2765; J3490; J7030; J7040; J7050; L8501; Q0162; Q0163; Q0177; Q9967; Z7610

== ENCOUNTER 2017-03-31 | Inpatient (IN) | payer MEDICAID ==
[~2017-03-31] VITALS: Ht 180.3 cm; Wt 76.2 kg
[~2017-03-31] MED LIST changes: +GUAIFENESIN/D-METHORPHAN HB 5 ML UDC ONE
[2017-04-01] MEDS ORDERED: DEXT50DI8 IVP (11:34)
[2017-04-01] MEDS ORDERED: GUAI10SY3 PO (11:34)
[2017-04-01] MEDS ORDERED: HYDR-3026 PO (11:34)
[2017-04-01] MEDS ORDERED: PANT40TA4 PO (11:34)
[2017-04-01] MEDS ORDERED: IPRA0.2S9 IH ×2 (11:34)
[2017-04-01] MEDS ORDERED: MINE396O3 TP (11:34)
[2017-04-01] MEDS ORDERED: BUDE0.5A IH ×2 (11:34)
[2017-04-01] MEDS ORDERED: ALBU2.5V38 IH ×2 (11:34)
[2017-04-01] MEDS ORDERED: ASCO500T8 PO (11:34)
[2017-04-01] MEDS ORDERED: ONDA4TAB8 PO (11:34)
[2017-04-01] MEDS ORDERED: MAG30ORA PO (11:34)
[2017-04-01] MEDS ORDERED: TRAM50TA2 PO (11:34)
[2017-04-01] MEDS ORDERED: SERT25TA PO (11:34)
[2017-04-01] MEDS ORDERED: DOCU-141 PO (11:34)
[2017-04-01] MEDS ORDERED: AMIN30LI4 PO (11:34)
[2017-04-01] MEDS ORDERED: ZINC56.7 TP (11:34)
[2017-04-01] MEDS ORDERED: BLOO-668 IN (11:34)
[2017-04-01] MEDS ORDERED: NAPR500T4 PO (11:34)
[2017-04-01] MEDS ORDERED: TEMA7.5C12 PO (11:34)
[2017-04-01] MEDS ORDERED: CLON0.1T PO (11:34)
[2017-04-01] MEDS ORDERED: NUT.237L85 PO (11:34)
[2017-04-01] MEDS ORDERED: PRED10TA GT (11:34)
[2017-04-01] MEDS ORDERED: POLY15DR40 EACHEYE (11:34)
[2017-04-01] MEDS ORDERED: TUBE5VIA2 ID (11:34)
[2017-04-01] MEDS ORDERED: [UNRECOGNIZED DRUG - OTHER] TD (11:34)
[2017-04-01] MEDS ORDERED: HYDR1TOW4 TP ×2 (11:39)
[2017-04-01] MEDS ORDERED: SORBITOL SOLUTION 30 ML PO PRN (12:31)
[2017-04-01] MEDS ORDERED: ONDANSETRON 4 MG TAB.RAPDIS PO PRN (12:31)
[2017-04-01] MEDS ORDERED: HYDROGEN PEROXIDE 480 ML BOTTLE TP PRN (12:31)
[2017-04-01] MEDS ORDERED: ALBUTEROL FS 2.5 MG/3 ML VIAL.NEB NEB PRN (12:31)
[2017-04-01] MEDS ORDERED: ATROPINE SULFATE OPHTH SOLN 15 ML BOTTLE SL PRN (12:31)
[2017-04-01] MEDS ORDERED: BUDESONIDE RESPULE INH 0.5 MG/2 ML AMPUL.NEB IH PRN (12:31)
[2017-04-01] MEDS ORDERED: [UNRECOGNIZED DRUG - OTHER] TP SCH (12:31)
[2017-04-01] MEDS ORDERED: CLONIDINE HCL 0.1 MG TABLET PO PRN (12:31)
[2017-04-01] MEDS ORDERED: RENAL NOVASOURCE (8OZ) 1 EA BOX PO PRN (12:31)
[2017-04-01] MEDS ORDERED: IPRATROPIUM NEB FS 0.5 MG/2.5 ML AMPUL.NEB NEB PRN (12:31)
[2017-04-01] MEDS ORDERED: TUBERCULIN,PURIF.PROT.DERIV. 5 TU/0.1 ML VIAL ID SCH (12:31)
[2017-04-01] MEDS ORDERED: ACETAMINOPHEN 650 MG/20 ML UDC- FOR SA PATIENTS ONLY PO PRN (12:31)
[2017-04-01] MEDS ORDERED: GABAPENTIN 100 MG CAPSULE PO SCH (12:31)
[2017-04-01] MEDS ORDERED: MAG HYDROX/AL HYDROX/SIMETH 30 ML UDC PO PRN (12:31)
[2017-04-01] MEDS ORDERED: DEXTROSE 50%-WATER 50 ML DISP.SYRIN IVP PRN (12:31)
[2017-04-01] MEDS ORDERED: GLUCAGON,HUMAN RECOMBINANT 1 MG/VIAL VIAL IM PRN (12:31)
[2017-04-01] MEDS: POLYVINYL ALCOHOL 15 ML BOTTLE EACHEYE SCH ×3 (14:04→21:01)
[2017-04-01] MEDS: PROSOURCE / PROSTAT (PYXIS) 30 ML UDC PO SCH ×2 (14:05→16:44)
[2017-04-01] MEDS: NAPROXEN 500 MG TABLET PO PRN (14:05)
[2017-04-01] MEDS: predniSONE 10 MG TABLET PO SCH (14:10)
[2017-04-01] MEDS: BLOOD SUGAR DIAGNOSTIC 1 EACH STRIP VI SCH (17:32)
[2017-04-01 19:20] VITALS: BP 136/94
[2017-04-01] MEDS: ALBUTEROL FS 2.5 MG/3 ML VIAL.NEB NEB SCH (19:30)
[2017-04-01] MEDS: IPRATROPIUM NEB FS 0.5 MG/2.5 ML AMPUL.NEB IH SCH (19:30)
[2017-04-01] MEDS: ASCORBIC ACID 500 MG TABLET PO SCH (21:00)
[2017-04-01] MEDS: HEPARIN SODIUM, PORCINE 5000 UNITS/1 ML VIAL SQ SCH (21:00)
[2017-04-01] MEDS: MINERAL OIL/PETROL OINT 396 GM JAR TP SCH (21:00)
[2017-04-01] MEDS: DOCUSATE SODIUM 100 MG CAPSULE PO SCH (21:00)
[2017-04-01] MEDS: [UNRECOGNIZED DRUG - OTHER] TP SCH (21:01)
[2017-04-01] MEDS: ZINC OXIDE 56.7 GM TUBE TP SCH (21:01)
[2017-04-01] MEDS: MONTELUKAST SODIUM (10MG) 10 MG TABLET PO SCH (21:01)
[2017-04-01] MEDS: GABAPENTIN 100 MG CAPSULE PO SCH (21:01)
[2017-04-01] MEDS: TEMAZEPAM 7.5 MG CAPSULE PO SCH (21:01)
[2017-04-01] MEDS: HYDROGEN PEROXIDE 480 ML BOTTLE TP SCH (21:01)
[2017-04-01] MEDS: GUAIFENESIN/D-METHORPHAN HB 5 ML UDC PO PRN (21:01)
[2017-04-01] MEDS: BUDESONIDE RESPULE INH 0.5 MG/2 ML AMPUL.NEB IH SCH (21:09)
[2017-04-02] MEDS: IPRATROPIUM NEB FS 0.5 MG/2.5 ML AMPUL.NEB IH SCH ×4 (01:34→19:24)
[2017-04-02] MEDS: ALBUTEROL FS 2.5 MG/3 ML VIAL.NEB NEB SCH ×4 (01:34→19:24)
[2017-04-02] MEDS: BLOOD SUGAR DIAGNOSTIC 1 EACH STRIP VI SCH ×3 (06:45→16:47)
[2017-04-02] MEDS: PANTOPRAZOLE 40 MG TABLET.DR PO SCH (06:45)
[2017-04-02 07:34] VITALS: BP 100/48
[2017-04-02] MEDS: PROSOURCE / PROSTAT (PYXIS) 30 ML UDC PO SCH ×3 (08:56→16:47)
[2017-04-02] MEDS: VIT B CMPLX 3/FA/VIT C/BIOTIN 1 TAB TABLET PO SCH (08:56)
[2017-04-02] MEDS: SITAGLIPTIN PHOSPHATE 25 MG TABLET PO SCH (08:56)
[2017-04-02] MEDS: POLYVINYL ALCOHOL 15 ML BOTTLE EACHEYE SCH ×4 (08:56→21:06)
[2017-04-02] MEDS: SERTRALINE HCL 25 MG TABLET PO SCH (08:56)
[2017-04-02] MEDS: HYDROGEN PEROXIDE 480 ML BOTTLE TP SCH ×2 (08:58→21:07)
[2017-04-02] MEDS: MINERAL OIL/PETROL OINT 396 GM JAR TP SCH ×2 (08:58→21:07)
[2017-04-02] MEDS: HEPARIN SODIUM, PORCINE 5000 UNITS/1 ML VIAL SQ SCH ×2 (08:58→21:07)
[2017-04-02] MEDS: ZINC OXIDE 56.7 GM TUBE TP SCH ×2 (08:58→21:07)
[2017-04-02] MEDS: BUDESONIDE RESPULE INH 0.5 MG/2 ML AMPUL.NEB IH SCH ×2 (09:00→20:04)
[2017-04-02] MEDS: GUAIFENESIN/D-METHORPHAN HB 5 ML UDC PO PRN ×2 (09:01→21:07)
[2017-04-02] MEDS: INSULIN LISPRO/ASPART 100 UNIT/ML CARTRIDGE SQ PRN (17:19)
[2017-04-02 19:34] VITALS: BP 145/98
[2017-04-02] MEDS: ASCORBIC ACID 500 MG TABLET PO SCH (21:06)
[2017-04-02] MEDS: DOCUSATE SODIUM 100 MG CAPSULE PO SCH (21:06)
[2017-04-02] MEDS: [UNRECOGNIZED DRUG - OTHER] TP SCH (21:07)
[2017-04-02] MEDS: MONTELUKAST SODIUM (10MG) 10 MG TABLET PO SCH (21:07)
[2017-04-02] MEDS: TEMAZEPAM 7.5 MG CAPSULE PO SCH (21:07)
[2017-04-02] MEDS: GABAPENTIN 100 MG CAPSULE PO SCH (21:07)
[2017-04-03] MEDS: ALBUTEROL FS 2.5 MG/3 ML VIAL.NEB NEB SCH ×4 (00:50→19:57)
[2017-04-03] MEDS: IPRATROPIUM NEB FS 0.5 MG/2.5 ML AMPUL.NEB IH SCH ×4 (00:50→19:57)
[2017-04-03] MEDS: PANTOPRAZOLE 40 MG TABLET.DR PO SCH (05:51)
[2017-04-03 07:39] VITALS: BP 152/99
[2017-04-03] MEDS: BUDESONIDE RESPULE INH 0.5 MG/2 ML AMPUL.NEB IH SCH ×2 (08:04→21:51)
[2017-04-03] MEDS: POLYVINYL ALCOHOL 15 ML BOTTLE EACHEYE SCH ×4 (08:20→21:22)
[2017-04-03] MEDS: PROSOURCE / PROSTAT (PYXIS) 30 ML UDC PO SCH ×3 (08:20→17:00)
[2017-04-03] MEDS: VIT B CMPLX 3/FA/VIT C/BIOTIN 1 TAB TABLET PO SCH (08:20)
[2017-04-03] MEDS: SERTRALINE HCL 25 MG TABLET PO SCH (08:20)
[2017-04-03] MEDS: HEPARIN SODIUM, PORCINE 5000 UNITS/1 ML VIAL SQ SCH ×2 (08:20→21:23)
[2017-04-03] MEDS: SITAGLIPTIN PHOSPHATE 25 MG TABLET PO SCH (08:20)
[2017-04-03] MEDS: BLOOD SUGAR DIAGNOSTIC 1 EACH STRIP VI SCH ×3 (08:20→18:11)
[2017-04-03] MEDS: ZINC OXIDE 56.7 GM TUBE TP SCH ×2 (09:07→21:23)
[2017-04-03] MEDS: HYDROGEN PEROXIDE 480 ML BOTTLE TP SCH ×2 (09:07→21:23)
[2017-04-03] MEDS: MINERAL OIL/PETROL OINT 396 GM JAR TP SCH ×2 (09:07→21:23)
[2017-04-03] MEDS: predniSONE 10 MG TABLET PO SCH (12:31)
[2017-04-03] MEDS: NAPROXEN 500 MG TABLET PO PRN (15:12)
[2017-04-03] MEDS: GUAIFENESIN/D-METHORPHAN HB 5 ML UDC PO PRN (15:12)
[2017-04-03] MEDS: INSULIN LISPRO/ASPART 100 UNIT/ML CARTRIDGE SQ PRN (18:13)
[2017-04-03 20:57] VITALS: BP 148/91
[2017-04-03] MEDS: DOCUSATE SODIUM 100 MG CAPSULE PO SCH (21:22)
[2017-04-03] MEDS: ASCORBIC ACID 500 MG TABLET PO SCH (21:22)
[2017-04-03] MEDS: MONTELUKAST SODIUM (10MG) 10 MG TABLET PO SCH (21:23)
[2017-04-03] MEDS: TEMAZEPAM 7.5 MG CAPSULE PO SCH (21:23)
[2017-04-03] MEDS: GABAPENTIN 100 MG CAPSULE PO SCH (21:23)
[2017-04-03] MEDS: [UNRECOGNIZED DRUG - OTHER] TP SCH (21:24)
[2017-04-03] MEDS: ATARAX 25 MG PO PRN (21:29)
[2017-04-04] MEDS: IPRATROPIUM NEB FS 0.5 MG/2.5 ML AMPUL.NEB IH SCH ×3 (00:49→19:57)
[2017-04-04] MEDS: ALBUTEROL FS 2.5 MG/3 ML VIAL.NEB NEB SCH ×3 (00:49→19:57)
[2017-04-04] MEDS: PANTOPRAZOLE 40 MG TABLET.DR PO SCH (06:31)
[2017-04-04] MEDS: BLOOD SUGAR DIAGNOSTIC 1 EACH STRIP VI SCH ×3 (06:47→17:03)
[2017-04-04] MEDS: INSULIN LISPRO/ASPART 100 UNIT/ML CARTRIDGE SQ PRN (06:48)
[2017-04-04 07:53] VITALS: BP 142/95
[2017-04-04] MEDS: SERTRALINE HCL 25 MG TABLET PO SCH (08:18)
[2017-04-04] MEDS: POLYVINYL ALCOHOL 15 ML BOTTLE EACHEYE SCH ×4 (08:18→21:05)
[2017-04-04] MEDS: VIT B CMPLX 3/FA/VIT C/BIOTIN 1 TAB TABLET PO SCH (08:18)
[2017-04-04] MEDS: SITAGLIPTIN PHOSPHATE 25 MG TABLET PO SCH (08:18)
[2017-04-04] MEDS: PROSOURCE / PROSTAT (PYXIS) 30 ML UDC PO SCH ×3 (08:18→17:03)
[2017-04-04] MEDS: HEPARIN SODIUM, PORCINE 5000 UNITS/1 ML VIAL SQ SCH ×2 (08:21→21:05)
[2017-04-04] MEDS: BISACODYL SUPP (10 MG) 10 MG/SUPP.RECT SUPP.RECT RC PRN (08:26)
[2017-04-04] MEDS: GUAIFENESIN/D-METHORPHAN HB 5 ML UDC PO PRN ×2 (08:27→21:06)
[2017-04-04] MEDS: HYDROGEN PEROXIDE 480 ML BOTTLE TP SCH ×2 (09:00→21:05)
[2017-04-04] MEDS: MINERAL OIL/PETROL OINT 396 GM JAR TP SCH ×2 (09:00→21:05)
[2017-04-04] MEDS: ZINC OXIDE 56.7 GM TUBE TP SCH ×2 (09:00→21:05)
[2017-04-04] MEDS: BUDESONIDE RESPULE INH 0.5 MG/2 ML AMPUL.NEB IH SCH ×2 (09:33→20:45)
[2017-04-04] MEDS: DOCUSATE SODIUM 100 MG CAPSULE PO SCH (21:05)
[2017-04-04] MEDS: ASCORBIC ACID 500 MG TABLET PO SCH (21:05)
[2017-04-04] MEDS: GABAPENTIN 100 MG CAPSULE PO SCH (21:05)
[2017-04-04] MEDS: TEMAZEPAM 7.5 MG CAPSULE PO SCH (21:05)
[2017-04-04] MEDS: MONTELUKAST SODIUM (10MG) 10 MG TABLET PO SCH (21:05)
[2017-04-04] MEDS: [UNRECOGNIZED DRUG - OTHER] TP SCH (21:06)
[2017-04-04 22:37] VITALS: BP 139/81
[2017-04-05] MEDS: IPRATROPIUM NEB FS 0.5 MG/2.5 ML AMPUL.NEB IH SCH ×4 (02:04→20:24)
[2017-04-05] MEDS: ALBUTEROL FS 2.5 MG/3 ML VIAL.NEB NEB SCH ×4 (02:04→20:24)
[2017-04-05] MEDS: PANTOPRAZOLE 40 MG TABLET.DR PO SCH (05:37)
[2017-04-05] MEDS: BLOOD SUGAR DIAGNOSTIC 1 EACH STRIP VI SCH ×3 (07:00→17:28)
[2017-04-05] MEDS: INSULIN LISPRO/ASPART 100 UNIT/ML CARTRIDGE SQ PRN ×2 (07:01→17:31)
[2017-04-05] MEDS: NAPROXEN 500 MG TABLET PO PRN (07:54)
[2017-04-05] MEDS: POLYVINYL ALCOHOL 15 ML BOTTLE EACHEYE SCH ×4 (08:04→21:09)
[2017-04-05] MEDS: VIT B CMPLX 3/FA/VIT C/BIOTIN 1 TAB TABLET PO SCH (08:04)
[2017-04-05] MEDS: SITAGLIPTIN PHOSPHATE 25 MG TABLET PO SCH (08:04)
[2017-04-05] MEDS: PROSOURCE / PROSTAT (PYXIS) 30 ML UDC PO SCH ×3 (08:05→17:00)
[2017-04-05] MEDS: SERTRALINE HCL 25 MG TABLET PO SCH (08:05)
[2017-04-05] MEDS: HEPARIN SODIUM, PORCINE 5000 UNITS/1 ML VIAL SQ SCH ×2 (08:07→21:09)
[2017-04-05] MEDS: GUAIFENESIN/D-METHORPHAN HB 5 ML UDC PO PRN (08:07)
[2017-04-05 08:17] VITALS: BP 142/82
[2017-04-05] MEDS: BUDESONIDE RESPULE INH 0.5 MG/2 ML AMPUL.NEB IH SCH ×2 (08:53→21:00)
[2017-04-05] MEDS: ZINC OXIDE 56.7 GM TUBE TP SCH ×2 (09:00→21:10)
[2017-04-05] MEDS: HYDROGEN PEROXIDE 480 ML BOTTLE TP SCH ×2 (09:00→21:09)
[2017-04-05] MEDS: MINERAL OIL/PETROL OINT 396 GM JAR TP SCH ×2 (09:00→21:09)
[2017-04-05] MEDS: predniSONE 10 MG TABLET PO SCH (12:31)
[2017-04-05 19:43] VITALS: BP_SYST 125; BP_SYST 154; BP_DIAS 71; BP_DIAS 91
[2017-04-05] MEDS: DOCUSATE SODIUM 100 MG CAPSULE PO SCH (21:09)
[2017-04-05] MEDS: ASCORBIC ACID 500 MG TABLET PO SCH (21:09)
[2017-04-05] MEDS: MONTELUKAST SODIUM (10MG) 10 MG TABLET PO SCH (21:10)
[2017-04-05] MEDS: GABAPENTIN 100 MG CAPSULE PO SCH (21:10)
[2017-04-05] MEDS: [UNRECOGNIZED DRUG - OTHER] TP SCH (21:10)
[2017-04-05] MEDS: ZINC OXIDE 30 GM TUBE TP SCH (21:10)
[2017-04-05] MEDS: TEMAZEPAM 7.5 MG CAPSULE PO SCH (21:10)
[2017-04-06] MEDS: IPRATROPIUM NEB FS 0.5 MG/2.5 ML AMPUL.NEB IH SCH ×4 (01:30→19:18)
[2017-04-06] MEDS: ALBUTEROL FS 2.5 MG/3 ML VIAL.NEB NEB SCH ×4 (01:30→19:18)
[2017-04-06] MEDS: PANTOPRAZOLE 40 MG TABLET.DR PO SCH (06:14)
[2017-04-06] MEDS: BLOOD SUGAR DIAGNOSTIC 1 EACH STRIP VI SCH ×3 (06:54→18:06)
[2017-04-06] MEDS: INSULIN LISPRO/ASPART 100 UNIT/ML CARTRIDGE SQ PRN ×3 (06:55→18:07)
[2017-04-06] MEDS: POLYVINYL ALCOHOL 15 ML BOTTLE EACHEYE SCH ×4 (08:54→20:57)
[2017-04-06] MEDS: SITAGLIPTIN PHOSPHATE 25 MG TABLET PO SCH (08:54)
[2017-04-06] MEDS: SERTRALINE HCL 25 MG TABLET PO SCH (08:55)
[2017-04-06] MEDS: PROSOURCE / PROSTAT (PYXIS) 30 ML UDC PO SCH ×3 (08:55→17:00)
[2017-04-06] MEDS: VIT B CMPLX 3/FA/VIT C/BIOTIN 1 TAB TABLET PO SCH (08:55)
[2017-04-06] MEDS: HEPARIN SODIUM, PORCINE 5000 UNITS/1 ML VIAL SQ SCH ×2 (08:56→20:59)
[2017-04-06] MEDS: BUDESONIDE RESPULE INH 0.5 MG/2 ML AMPUL.NEB IH SCH ×2 (09:26→19:18)
[2017-04-06 09:51] VITALS: BP 123/50
[2017-04-06] MEDS: ZINC OXIDE 30 GM TUBE TP SCH ×2 (10:00→21:00)
[2017-04-06] MEDS: NAPROXEN 500 MG TABLET PO PRN (10:28)
[2017-04-06] MEDS: GUAIFENESIN/D-METHORPHAN HB 5 ML UDC PO PRN ×2 (10:31→21:01)
[2017-04-06] MEDS: ZINC OXIDE 56.7 GM TUBE TP SCH ×2 (11:00→21:00)
[2017-04-06] MEDS: HYDROGEN PEROXIDE 480 ML BOTTLE TP SCH ×2 (11:00→21:00)
[2017-04-06] MEDS: MINERAL OIL/PETROL OINT 396 GM JAR TP SCH ×2 (11:00→21:00)
[2017-04-06] MEDS: DOCUSATE SODIUM 100 MG CAPSULE PO SCH (20:58)
[2017-04-06] MEDS: ASCORBIC ACID 500 MG TABLET PO SCH (20:58)
[2017-04-06 20:59] VITALS: BP 155/89
[2017-04-06] MEDS: TEMAZEPAM 7.5 MG CAPSULE PO SCH (21:00)
[2017-04-06] MEDS: MONTELUKAST SODIUM (10MG) 10 MG TABLET PO SCH (21:00)
[2017-04-06] MEDS: GABAPENTIN 100 MG CAPSULE PO SCH (21:00)
[2017-04-06] MEDS: ATARAX 25 MG PO PRN (21:01)
[2017-04-06] MEDS: [UNRECOGNIZED DRUG - OTHER] TP SCH (21:01)
[2017-04-07] MEDS: IPRATROPIUM NEB FS 0.5 MG/2.5 ML AMPUL.NEB IH SCH ×4 (02:20→19:25)
[2017-04-07] MEDS: ALBUTEROL FS 2.5 MG/3 ML VIAL.NEB NEB SCH ×4 (02:20→19:25)
[2017-04-07] MEDS: BLOOD SUGAR DIAGNOSTIC 1 EACH STRIP VI SCH ×3 (06:05→17:29)
[2017-04-07] MEDS: PANTOPRAZOLE 40 MG TABLET.DR PO SCH (06:05)
[2017-04-07] MEDS: GUAIFENESIN/D-METHORPHAN HB 5 ML UDC PO PRN ×2 (08:37→20:53)
[2017-04-07] MEDS: TRAMADOL HCL 50 MG TABLET PO PRN ×2 (08:37→18:54)
[2017-04-07] MEDS: SITAGLIPTIN PHOSPHATE 25 MG TABLET PO SCH (08:40)
[2017-04-07] MEDS: SERTRALINE HCL 25 MG TABLET PO SCH (08:40)
[2017-04-07] MEDS: PROSOURCE / PROSTAT (PYXIS) 30 ML UDC PO SCH ×3 (08:40→17:29)
[2017-04-07] MEDS: POLYVINYL ALCOHOL 15 ML BOTTLE EACHEYE SCH ×4 (08:40→20:48)
[2017-04-07] MEDS: VIT B CMPLX 3/FA/VIT C/BIOTIN 1 TAB TABLET PO SCH (08:40)
[2017-04-07] MEDS: MINERAL OIL/PETROL OINT 396 GM JAR TP SCH ×2 (08:42→20:52)
[2017-04-07] MEDS: HYDROGEN PEROXIDE 480 ML BOTTLE TP SCH ×2 (08:42→20:52)
[2017-04-07] MEDS: HEPARIN SODIUM, PORCINE 5000 UNITS/1 ML VIAL SQ SCH ×2 (08:42→20:50)
[2017-04-07] MEDS: ZINC OXIDE 30 GM TUBE TP SCH ×2 (08:42→20:52)
[2017-04-07] MEDS: ZINC OXIDE 56.7 GM TUBE TP SCH ×2 (08:43→20:52)
[2017-04-07] MEDS: BUDESONIDE RESPULE INH 0.5 MG/2 ML AMPUL.NEB IH SCH ×2 (09:58→21:00)
[2017-04-07] MEDS: predniSONE 10 MG TABLET PO SCH (12:17)
[2017-04-07] MEDS: INSULIN LISPRO/ASPART 100 UNIT/ML CARTRIDGE SQ PRN ×2 (12:18→17:30)
[2017-04-07 15:42] VITALS: BP 132/83
[2017-04-07 20:03] VITALS: BP 123/86
[2017-04-07] MEDS: DOCUSATE SODIUM 100 MG CAPSULE PO SCH (20:49)
[2017-04-07] MEDS: ASCORBIC ACID 500 MG TABLET PO SCH (20:49)
[2017-04-07] MEDS: ATARAX 25 MG PO PRN (20:53)
[2017-04-07] MEDS: [UNRECOGNIZED DRUG - OTHER] TP SCH (22:33)
[2017-04-07] MEDS: TEMAZEPAM 7.5 MG CAPSULE PO SCH (22:33)
[2017-04-07] MEDS: MONTELUKAST SODIUM (10MG) 10 MG TABLET PO SCH (22:33)
[2017-04-07] MEDS: GABAPENTIN 100 MG CAPSULE PO SCH (22:33)
[2017-04-08] MEDS: ALBUTEROL FS 2.5 MG/3 ML VIAL.NEB NEB SCH ×4 (01:26→19:12)
[2017-04-08] MEDS: PANTOPRAZOLE 40 MG TABLET.DR PO SCH (06:05)
[2017-04-08] MEDS: IPRATROPIUM NEB FS 0.5 MG/2.5 ML AMPUL.NEB IH SCH ×3 (07:30→19:12)
[2017-04-08] MEDS: BLOOD SUGAR DIAGNOSTIC 1 EACH STRIP VI SCH ×3 (08:04→17:51)
[2017-04-08] MEDS: INSULIN LISPRO/ASPART 100 UNIT/ML CARTRIDGE SQ PRN ×2 (08:05→17:53)
[2017-04-08 08:10] VITALS: BP 98/59
[2017-04-08] MEDS: POLYVINYL ALCOHOL 15 ML BOTTLE EACHEYE SCH ×4 (08:11→20:54)
[2017-04-08] MEDS: VIT B CMPLX 3/FA/VIT C/BIOTIN 1 TAB TABLET PO SCH (08:11)
[2017-04-08] MEDS: PROSOURCE / PROSTAT (PYXIS) 30 ML UDC PO SCH ×3 (08:11→17:51)
[2017-04-08] MEDS: SITAGLIPTIN PHOSPHATE 25 MG TABLET PO SCH (08:11)
[2017-04-08] MEDS: SERTRALINE HCL 25 MG TABLET PO SCH (08:12)
[2017-04-08] MEDS: HEPARIN SODIUM, PORCINE 5000 UNITS/1 ML VIAL SQ SCH ×2 (08:14→20:55)
[2017-04-08] MEDS: MINERAL OIL/PETROL OINT 396 GM JAR TP SCH ×2 (08:14→20:56)
[2017-04-08] MEDS: TRAMADOL HCL 50 MG TABLET PO PRN (08:22)
[2017-04-08] MEDS: GUAIFENESIN/D-METHORPHAN HB 5 ML UDC PO PRN ×2 (08:24→20:58)
[2017-04-08] MEDS: HYDROGEN PEROXIDE 480 ML BOTTLE TP SCH ×2 (09:00→20:56)
[2017-04-08] MEDS: ZINC OXIDE 30 GM TUBE TP SCH ×2 (09:00→20:57)
[2017-04-08] MEDS: ZINC OXIDE 56.7 GM TUBE TP SCH ×2 (09:00→20:57)
[2017-04-08] MEDS: BUDESONIDE RESPULE INH 0.5 MG/2 ML AMPUL.NEB IH SCH ×2 (09:48→20:02)
[2017-04-08 20:21] VITALS: BP 130/73
[2017-04-08] MEDS: DOCUSATE SODIUM 100 MG CAPSULE PO SCH (20:54)
[2017-04-08] MEDS: ASCORBIC ACID 500 MG TABLET PO SCH (20:56)
[2017-04-08] MEDS: ATARAX 25 MG PO PRN (20:58)
[2017-04-08] MEDS: [UNRECOGNIZED DRUG - OTHER] TP SCH (21:55)
[2017-04-08] MEDS: GABAPENTIN 100 MG CAPSULE PO SCH (21:55)
[2017-04-08] MEDS: TEMAZEPAM 7.5 MG CAPSULE PO SCH (21:55)
[2017-04-08] MEDS: MONTELUKAST SODIUM (10MG) 10 MG TABLET PO SCH (21:55)
[2017-04-09] MEDS: IPRATROPIUM NEB FS 0.5 MG/2.5 ML AMPUL.NEB IH SCH ×4 (01:15→20:07)
[2017-04-09] MEDS: ALBUTEROL FS 2.5 MG/3 ML VIAL.NEB NEB SCH ×4 (01:15→20:07)
[2017-04-09] MEDS: PANTOPRAZOLE 40 MG TABLET.DR PO SCH (06:09)
[2017-04-09 08:00] VITALS: BP 137/94
[2017-04-09] MEDS: PROSOURCE / PROSTAT (PYXIS) 30 ML UDC PO SCH ×3 (08:13→17:30)
[2017-04-09] MEDS: BLOOD SUGAR DIAGNOSTIC 1 EACH STRIP VI SCH ×3 (08:13→17:31)
[2017-04-09] MEDS: VIT B CMPLX 3/FA/VIT C/BIOTIN 1 TAB TABLET PO SCH (08:13)
[2017-04-09] MEDS: HEPARIN SODIUM, PORCINE 5000 UNITS/1 ML VIAL SQ SCH ×2 (08:13→21:03)
[2017-04-09] MEDS: POLYVINYL ALCOHOL 15 ML BOTTLE EACHEYE SCH ×4 (08:13→21:01)
[2017-04-09] MEDS: SERTRALINE HCL 25 MG TABLET PO SCH (08:13)
[2017-04-09] MEDS: SITAGLIPTIN PHOSPHATE 25 MG TABLET PO SCH (08:13)
[2017-04-09] MEDS: ZINC OXIDE 30 GM TUBE TP SCH ×2 (08:14→21:02)
[2017-04-09] MEDS: MINERAL OIL/PETROL OINT 396 GM JAR TP SCH ×2 (08:14→21:01)
[2017-04-09] MEDS: HYDROGEN PEROXIDE 480 ML BOTTLE TP SCH ×2 (08:14→21:02)
[2017-04-09] MEDS: ZINC OXIDE 56.7 GM TUBE TP SCH ×2 (08:14→21:02)
[2017-04-09] MEDS: NAPROXEN 500 MG TABLET PO PRN (09:00)
[2017-04-09] MEDS: GUAIFENESIN/D-METHORPHAN HB 5 ML UDC PO PRN ×2 (09:00→21:03)
[2017-04-09] MEDS: BUDESONIDE RESPULE INH 0.5 MG/2 ML AMPUL.NEB IH SCH ×2 (09:24→20:19)
[2017-04-09] MEDS: INSULIN LISPRO/ASPART 100 UNIT/ML CARTRIDGE SQ PRN (12:14)
[2017-04-09] MEDS: predniSONE 10 MG TABLET PO SCH (12:23)
[2017-04-09 20:52] VITALS: BP 121/83
[2017-04-09] MEDS: ASCORBIC ACID 500 MG TABLET PO SCH (21:01)
[2017-04-09] MEDS: DOCUSATE SODIUM 100 MG CAPSULE PO SCH (21:01)
[2017-04-09] MEDS: GABAPENTIN 100 MG CAPSULE PO SCH (21:02)
[2017-04-09] MEDS: [UNRECOGNIZED DRUG - OTHER] TP SCH (21:02)
[2017-04-09] MEDS: MONTELUKAST SODIUM (10MG) 10 MG TABLET PO SCH (21:02)
[2017-04-09] MEDS: TEMAZEPAM 7.5 MG CAPSULE PO SCH (21:02)
[2017-04-09] MEDS: ATARAX 25 MG PO PRN (21:02)
[2017-04-10] MEDS: IPRATROPIUM NEB FS 0.5 MG/2.5 ML AMPUL.NEB IH SCH ×4 (01:34→20:23)
[2017-04-10] MEDS: ALBUTEROL FS 2.5 MG/3 ML VIAL.NEB NEB SCH ×4 (01:34→20:23)
[2017-04-10] MEDS: PANTOPRAZOLE 40 MG TABLET.DR PO SCH (06:30)
[2017-04-10] MEDS: BLOOD SUGAR DIAGNOSTIC 1 EACH STRIP VI SCH ×3 (06:30→16:56)
[2017-04-10 07:50] VITALS: BP 128/72
[2017-04-10] MEDS: BUDESONIDE RESPULE INH 0.5 MG/2 ML AMPUL.NEB IH SCH ×2 (07:56→20:23)
[2017-04-10] MEDS: SITAGLIPTIN PHOSPHATE 25 MG TABLET PO SCH (08:14)
[2017-04-10] MEDS: PROSOURCE / PROSTAT (PYXIS) 30 ML UDC PO SCH ×3 (08:14→17:05)
[2017-04-10] MEDS: VIT B CMPLX 3/FA/VIT C/BIOTIN 1 TAB TABLET PO SCH (08:14)
[2017-04-10] MEDS: POLYVINYL ALCOHOL 15 ML BOTTLE EACHEYE SCH ×4 (08:14→21:42)
[2017-04-10] MEDS: SERTRALINE HCL 25 MG TABLET PO SCH (08:15)
[2017-04-10] MEDS: HEPARIN SODIUM, PORCINE 5000 UNITS/1 ML VIAL SQ SCH ×2 (08:16→21:43)
[2017-04-10] MEDS: HYDROGEN PEROXIDE 480 ML BOTTLE TP SCH ×2 (08:16→21:43)
[2017-04-10] MEDS: ZINC OXIDE 30 GM TUBE TP SCH ×2 (08:16→21:43)
[2017-04-10] MEDS: MINERAL OIL/PETROL OINT 396 GM JAR TP SCH ×2 (08:16→21:43)
[2017-04-10] MEDS: ZINC OXIDE 56.7 GM TUBE TP SCH ×2 (08:17→21:44)
[2017-04-10] MEDS: GUAIFENESIN/D-METHORPHAN HB 5 ML UDC PO PRN ×2 (08:20→21:45)
[2017-04-10] MEDS: NAPROXEN 500 MG TABLET PO PRN (08:20)
[2017-04-10] MEDS: ATARAX 25 MG PO PRN ×2 (08:22→21:45)
[2017-04-10] MEDS: INSULIN LISPRO/ASPART 100 UNIT/ML CARTRIDGE SQ PRN ×2 (13:47→17:06)
[2017-04-10 20:00] VITALS: BP 145/89
[2017-04-10] MEDS: BISACODYL SUPP (10 MG) 10 MG/SUPP.RECT SUPP.RECT RC PRN (20:28)
[2017-04-10] MEDS: DOCUSATE SODIUM 100 MG CAPSULE PO SCH (21:42)
[2017-04-10] MEDS: ASCORBIC ACID 500 MG TABLET PO SCH (21:42)
[2017-04-10] MEDS: GABAPENTIN 100 MG CAPSULE PO SCH (21:44)
[2017-04-10] MEDS: TEMAZEPAM 7.5 MG CAPSULE PO SCH (21:44)
[2017-04-10] MEDS: [UNRECOGNIZED DRUG - OTHER] TP SCH (21:44)
[2017-04-10] MEDS: MONTELUKAST SODIUM (10MG) 10 MG TABLET PO SCH (21:44)
[2017-04-11] MEDS: IPRATROPIUM NEB FS 0.5 MG/2.5 ML AMPUL.NEB IH SCH ×4 (00:40→19:30)
[2017-04-11] MEDS: ALBUTEROL FS 2.5 MG/3 ML VIAL.NEB NEB SCH ×4 (00:40→19:30)
[2017-04-11] MEDS: PANTOPRAZOLE 40 MG TABLET.DR PO SCH (06:48)
[2017-04-11] MEDS: BLOOD SUGAR DIAGNOSTIC 1 EACH STRIP VI SCH ×3 (06:48→17:43)
[2017-04-11] MEDS: INSULIN LISPRO/ASPART 100 UNIT/ML CARTRIDGE SQ PRN ×3 (06:48→17:44)
[2017-04-11 07:40] VITALS: BP 140/83
[2017-04-11] MEDS: HYDROGEN PEROXIDE 480 ML BOTTLE TP SCH ×2 (09:00→21:06)
[2017-04-11] MEDS: MINERAL OIL/PETROL OINT 396 GM JAR TP SCH ×2 (09:00→21:06)
[2017-04-11] MEDS: ZINC OXIDE 30 GM TUBE TP SCH ×2 (09:00→21:06)
[2017-04-11] MEDS: ZINC OXIDE 56.7 GM TUBE TP SCH ×2 (09:00→21:06)
[2017-04-11] MEDS: FLUOCINONIDE 0.05% CREAM 30 GM TUBE TP SCH (09:00)
[2017-04-11] MEDS: BUDESONIDE RESPULE INH 0.5 MG/2 ML AMPUL.NEB IH SCH ×2 (09:11→20:40)
[2017-04-11] MEDS: POLYVINYL ALCOHOL 15 ML BOTTLE EACHEYE SCH ×4 (09:17→21:05)
[2017-04-11] MEDS: VIT B CMPLX 3/FA/VIT C/BIOTIN 1 TAB TABLET PO SCH (09:17)
[2017-04-11] MEDS: PROSOURCE / PROSTAT (PYXIS) 30 ML UDC PO SCH ×3 (09:17→17:43)
[2017-04-11] MEDS: SITAGLIPTIN PHOSPHATE 25 MG TABLET PO SCH (09:17)
[2017-04-11] MEDS: SERTRALINE HCL 25 MG TABLET PO SCH (09:17)
[2017-04-11] MEDS: HEPARIN SODIUM, PORCINE 5000 UNITS/1 ML VIAL SQ SCH ×2 (09:18→21:06)
[2017-04-11] MEDS: GUAIFENESIN/D-METHORPHAN HB 5 ML UDC PO PRN (10:20)
[2017-04-11] MEDS: ATARAX 25 MG PO PRN (10:21)
[2017-04-11] MEDS: NAPROXEN 500 MG TABLET PO PRN (10:21)
[2017-04-11] MEDS: predniSONE 10 MG TABLET PO SCH (12:31)
[2017-04-11] MEDS ORDERED: DIATR MEGLU/DIATRIZOATE SODIUM 30 ML BOTTLE (GASTROGRAPHIN) ONE (14:58)
[2017-04-11] MEDS: ASCORBIC ACID 500 MG TABLET PO SCH (21:05)
[2017-04-11] MEDS: DOCUSATE SODIUM 100 MG CAPSULE PO SCH (21:05)
[2017-04-11] MEDS: GABAPENTIN 100 MG CAPSULE PO SCH (21:06)
[2017-04-11] MEDS: MONTELUKAST SODIUM (10MG) 10 MG TABLET PO SCH (21:06)
[2017-04-11] MEDS: TEMAZEPAM 7.5 MG CAPSULE PO SCH (21:06)
[2017-04-11] MEDS: [UNRECOGNIZED DRUG - OTHER] TP SCH (21:07)
[2017-04-11 23:35] VITALS: BP 133/83
[2017-04-12] MEDS: IPRATROPIUM NEB FS 0.5 MG/2.5 ML AMPUL.NEB IH SCH ×4 (01:43→19:54)
[2017-04-12] MEDS: ALBUTEROL FS 2.5 MG/3 ML VIAL.NEB NEB SCH ×4 (01:43→19:54)
[2017-04-12] MEDS: PANTOPRAZOLE 40 MG TABLET.DR PO SCH (05:41)
[2017-04-12] MEDS: BLOOD SUGAR DIAGNOSTIC 1 EACH STRIP VI SCH ×3 (06:54→17:30)
[2017-04-12] MEDS: INSULIN LISPRO/ASPART 100 UNIT/ML CARTRIDGE SQ PRN (06:55)
[2017-04-12 07:39] VITALS: BP 152/53
[2017-04-12] MEDS: PROSOURCE / PROSTAT (PYXIS) 30 ML UDC PO SCH ×3 (08:11→17:57)
[2017-04-12] MEDS: VIT B CMPLX 3/FA/VIT C/BIOTIN 1 TAB TABLET PO SCH (08:11)
[2017-04-12] MEDS: POLYVINYL ALCOHOL 15 ML BOTTLE EACHEYE SCH ×4 (08:11→21:14)
[2017-04-12] MEDS: SERTRALINE HCL 25 MG TABLET PO SCH (08:11)
[2017-04-12] MEDS: SITAGLIPTIN PHOSPHATE 25 MG TABLET PO SCH (08:11)
[2017-04-12] MEDS: BUDESONIDE RESPULE INH 0.5 MG/2 ML AMPUL.NEB IH SCH ×2 (08:13→21:01)
[2017-04-12] MEDS: HEPARIN SODIUM, PORCINE 5000 UNITS/1 ML VIAL SQ SCH ×2 (08:16→21:15)
[2017-04-12] MEDS: MINERAL OIL/PETROL OINT 396 GM JAR TP SCH ×2 (08:16→21:15)
[2017-04-12] MEDS: NAPROXEN 500 MG TABLET PO PRN ×2 (08:37→22:38)
[2017-04-12] MEDS: GUAIFENESIN/D-METHORPHAN HB 5 ML UDC PO PRN ×2 (08:37→21:19)
[2017-04-12] MEDS: ATARAX 25 MG PO PRN (08:37)
[2017-04-12] MEDS: ZINC OXIDE 56.7 GM TUBE TP SCH ×2 (09:00→21:15)
[2017-04-12] MEDS: HYDROGEN PEROXIDE 480 ML BOTTLE TP SCH ×2 (09:00→21:15)
[2017-04-12] MEDS: ZINC OXIDE 30 GM TUBE TP SCH ×2 (09:00→21:15)
[2017-04-12] MEDS: FLUOCINONIDE 0.05% CREAM 30 GM TUBE TP SCH (09:00)
[2017-04-12] MEDS: ASCORBIC ACID 500 MG TABLET PO SCH (21:14)
[2017-04-12] MEDS: DOCUSATE SODIUM 100 MG CAPSULE PO SCH (21:14)
[2017-04-12] MEDS: TEMAZEPAM 7.5 MG CAPSULE PO SCH (21:15)
[2017-04-12] MEDS: GABAPENTIN 100 MG CAPSULE PO SCH (21:15)
[2017-04-12] MEDS: [UNRECOGNIZED DRUG - OTHER] TP SCH (21:15)
[2017-04-12] MEDS: MONTELUKAST SODIUM (10MG) 10 MG TABLET PO SCH (21:15)
[2017-04-12 21:43] VITALS: BP 131/92
[2017-04-13] MEDS: IPRATROPIUM NEB FS 0.5 MG/2.5 ML AMPUL.NEB IH SCH ×4 (01:53→20:03)
[2017-04-13] MEDS: ALBUTEROL FS 2.5 MG/3 ML VIAL.NEB NEB SCH ×4 (01:54→20:03)
[2017-04-13] MEDS: PANTOPRAZOLE 40 MG TABLET.DR PO SCH (05:30)
[2017-04-13] MEDS: BLOOD SUGAR DIAGNOSTIC 1 EACH STRIP VI SCH ×3 (06:50→18:01)
[2017-04-13] MEDS: INSULIN LISPRO/ASPART 100 UNIT/ML CARTRIDGE SQ PRN ×3 (06:50→18:02)
[2017-04-13 07:32] VITALS: BP 153/97
[2017-04-13] MEDS: BUDESONIDE RESPULE INH 0.5 MG/2 ML AMPUL.NEB IH SCH ×2 (08:27→20:20)
[2017-04-13] MEDS: HYDROGEN PEROXIDE 480 ML BOTTLE TP SCH ×2 (09:00→21:17)
[2017-04-13] MEDS: PROSOURCE / PROSTAT (PYXIS) 30 ML UDC PO SCH ×3 (09:30→17:00)
[2017-04-13] MEDS: SITAGLIPTIN PHOSPHATE 25 MG TABLET PO SCH (09:30)
[2017-04-13] MEDS: VIT B CMPLX 3/FA/VIT C/BIOTIN 1 TAB TABLET PO SCH (09:30)
[2017-04-13] MEDS: POLYVINYL ALCOHOL 15 ML BOTTLE EACHEYE SCH ×4 (09:30→21:11)
[2017-04-13] MEDS: SERTRALINE HCL 25 MG TABLET PO SCH (09:30)
[2017-04-13] MEDS: HEPARIN SODIUM, PORCINE 5000 UNITS/1 ML VIAL SQ SCH ×2 (09:31→21:13)
[2017-04-13] MEDS: MINERAL OIL/PETROL OINT 396 GM JAR TP SCH ×2 (09:31→21:17)
[2017-04-13] MEDS: FLUOCINONIDE 0.05% CREAM 30 GM TUBE TP SCH (09:31)
[2017-04-13] MEDS: ZINC OXIDE 30 GM TUBE TP SCH ×2 (09:31→21:17)
[2017-04-13] MEDS: ZINC OXIDE 56.7 GM TUBE TP SCH ×2 (09:32→21:17)
[2017-04-13] MEDS: predniSONE 10 MG TABLET PO SCH (12:31)
[2017-04-13] MEDS: GUAIFENESIN/D-METHORPHAN HB 5 ML UDC PO PRN ×2 (13:37→21:16)
[2017-04-13 20:07] VITALS: BP 141/95
[2017-04-13] MEDS: DOCUSATE SODIUM 100 MG CAPSULE PO SCH (21:12)
[2017-04-13] MEDS: ASCORBIC ACID 500 MG TABLET PO SCH (21:13)
[2017-04-13] MEDS: ATARAX 25 MG PO PRN (21:16)
[2017-04-13] MEDS: [UNRECOGNIZED DRUG - OTHER] TP SCH (21:17)
[2017-04-13] MEDS: GABAPENTIN 100 MG CAPSULE PO SCH (21:17)
[2017-04-13] MEDS: TEMAZEPAM 7.5 MG CAPSULE PO SCH (21:17)
[2017-04-13] MEDS: MONTELUKAST SODIUM (10MG) 10 MG TABLET PO SCH (21:17)
[2017-04-14] MEDS: IPRATROPIUM NEB FS 0.5 MG/2.5 ML AMPUL.NEB IH SCH ×4 (01:28→20:24)
[2017-04-14] MEDS: ALBUTEROL FS 2.5 MG/3 ML VIAL.NEB NEB SCH ×4 (01:28→20:24)
[2017-04-14] MEDS: PANTOPRAZOLE 40 MG TABLET.DR PO SCH (06:18)
[2017-04-14] MEDS: BLOOD SUGAR DIAGNOSTIC 1 EACH STRIP VI SCH ×3 (07:35→17:19)
[2017-04-14 08:07] VITALS: BP 153/98
[2017-04-14] MEDS: BUDESONIDE RESPULE INH 0.5 MG/2 ML AMPUL.NEB IH SCH ×2 (08:08→20:24)
[2017-04-14] MEDS: POLYVINYL ALCOHOL 15 ML BOTTLE EACHEYE SCH ×4 (08:26→20:55)
[2017-04-14] MEDS: SITAGLIPTIN PHOSPHATE 25 MG TABLET PO SCH (08:26)
[2017-04-14] MEDS: PROSOURCE / PROSTAT (PYXIS) 30 ML UDC PO SCH ×3 (08:26→17:19)
[2017-04-14] MEDS: VIT B CMPLX 3/FA/VIT C/BIOTIN 1 TAB TABLET PO SCH (08:26)
[2017-04-14] MEDS: SERTRALINE HCL 25 MG TABLET PO SCH (08:26)
[2017-04-14] MEDS: HEPARIN SODIUM, PORCINE 5000 UNITS/1 ML VIAL SQ SCH ×2 (08:27→20:58)
[2017-04-14] MEDS: MINERAL OIL/PETROL OINT 396 GM JAR TP SCH ×2 (08:27→20:59)
[2017-04-14] MEDS: FLUOCINONIDE 0.05% CREAM 30 GM TUBE TP SCH (09:00)
[2017-04-14] MEDS: ZINC OXIDE 30 GM TUBE TP SCH ×2 (09:00→20:59)
[2017-04-14] MEDS: ZINC OXIDE 56.7 GM TUBE TP SCH ×2 (09:00→20:59)
[2017-04-14] MEDS: NAPROXEN 500 MG TABLET PO PRN (10:02)
[2017-04-14] MEDS: GUAIFENESIN/D-METHORPHAN HB 5 ML UDC PO PRN ×2 (10:03→21:01)
[2017-04-14] MEDS: INSULIN LISPRO/ASPART 100 UNIT/ML CARTRIDGE SQ PRN ×2 (12:26→17:21)
[2017-04-14] MEDS: HYDROGEN PEROXIDE 480 ML BOTTLE TP SCH ×2 (17:18→20:59)
[2017-04-14] MEDS: DOCUSATE SODIUM 100 MG CAPSULE PO SCH (20:56)
[2017-04-14] MEDS: ASCORBIC ACID 500 MG TABLET PO SCH (20:57)
[2017-04-14] MEDS: TEMAZEPAM 7.5 MG CAPSULE PO SCH (21:00)
[2017-04-14] MEDS: MONTELUKAST SODIUM (10MG) 10 MG TABLET PO SCH (21:00)
[2017-04-14] MEDS: GABAPENTIN 100 MG CAPSULE PO SCH (21:00)
[2017-04-14] MEDS: ATARAX 25 MG PO PRN (21:01)
[2017-04-14] MEDS: [UNRECOGNIZED DRUG - OTHER] TP SCH (21:01)
[2017-04-15] MEDS: ALBUTEROL FS 2.5 MG/3 ML VIAL.NEB NEB SCH ×4 (01:50→19:56)
[2017-04-15] MEDS: IPRATROPIUM NEB FS 0.5 MG/2.5 ML AMPUL.NEB IH SCH ×4 (01:50→19:56)
[2017-04-15] MEDS: PANTOPRAZOLE 40 MG TABLET.DR PO SCH (06:24)
[2017-04-15] MEDS: BLOOD SUGAR DIAGNOSTIC 1 EACH STRIP VI SCH ×3 (06:24→17:15)
[2017-04-15 07:51] VITALS: BP 134/88
[2017-04-15] MEDS: BUDESONIDE RESPULE INH 0.5 MG/2 ML AMPUL.NEB IH SCH ×2 (08:08→20:37)
[2017-04-15] MEDS: VIT B CMPLX 3/FA/VIT C/BIOTIN 1 TAB TABLET PO SCH (08:17)
[2017-04-15] MEDS: SERTRALINE HCL 25 MG TABLET PO SCH (08:17)
[2017-04-15] MEDS: PROSOURCE / PROSTAT (PYXIS) 30 ML UDC PO SCH ×3 (08:17→17:15)
[2017-04-15] MEDS: POLYVINYL ALCOHOL 15 ML BOTTLE EACHEYE SCH ×4 (08:17→20:58)
[2017-04-15] MEDS: HYDROGEN PEROXIDE 480 ML BOTTLE TP SCH ×2 (08:17→21:02)
[2017-04-15] MEDS: SITAGLIPTIN PHOSPHATE 25 MG TABLET PO SCH (08:17)
[2017-04-15] MEDS: HEPARIN SODIUM, PORCINE 5000 UNITS/1 ML VIAL SQ SCH ×2 (08:17→21:02)
[2017-04-15] MEDS: MINERAL OIL/PETROL OINT 396 GM JAR TP SCH ×2 (08:17→21:02)
[2017-04-15] MEDS: ZINC OXIDE 56.7 GM TUBE TP SCH ×2 (08:18→21:02)
[2017-04-15] MEDS: ZINC OXIDE 30 GM TUBE TP SCH ×2 (08:18→21:02)
[2017-04-15] MEDS: FLUOCINONIDE 0.05% CREAM 30 GM TUBE TP SCH (08:18)
[2017-04-15] MEDS: GUAIFENESIN/D-METHORPHAN HB 5 ML UDC PO PRN ×2 (08:21→21:00)
[2017-04-15] MEDS: NAPROXEN 500 MG TABLET PO PRN ×2 (08:21→17:15)
[2017-04-15] MEDS: predniSONE 10 MG TABLET PO SCH (13:30)
[2017-04-15] MEDS: INSULIN LISPRO/ASPART 100 UNIT/ML CARTRIDGE SQ PRN (17:15)
[2017-04-15 19:40] VITALS: BP 126/78
[2017-04-15] MEDS: DOCUSATE SODIUM 100 MG CAPSULE PO SCH (20:58)
[2017-04-15] MEDS: ATARAX 25 MG PO PRN (21:00)
[2017-04-15] MEDS: ASCORBIC ACID 500 MG TABLET PO SCH (21:01)
[2017-04-15] MEDS: GABAPENTIN 100 MG CAPSULE PO SCH (21:03)
[2017-04-15] MEDS: TEMAZEPAM 7.5 MG CAPSULE PO SCH (21:03)
[2017-04-15] MEDS: MONTELUKAST SODIUM (10MG) 10 MG TABLET PO SCH (21:04)
[2017-04-15] MEDS: [UNRECOGNIZED DRUG - OTHER] TP SCH (21:04)
[2017-04-16] MEDS: ALBUTEROL FS 2.5 MG/3 ML VIAL.NEB NEB SCH ×4 (01:58→19:23)
[2017-04-16] MEDS: IPRATROPIUM NEB FS 0.5 MG/2.5 ML AMPUL.NEB IH SCH ×4 (01:58→19:23)
[2017-04-16] MEDS: PANTOPRAZOLE 40 MG TABLET.DR PO SCH (06:15)
[2017-04-16] MEDS: BLOOD SUGAR DIAGNOSTIC 1 EACH STRIP VI SCH ×3 (06:15→17:31)
[2017-04-16 07:25] VITALS: BP 145/97
[2017-04-16] MEDS: SERTRALINE HCL 25 MG TABLET PO SCH (08:03)
[2017-04-16] MEDS: PROSOURCE / PROSTAT (PYXIS) 30 ML UDC PO SCH ×3 (08:03→17:00)
[2017-04-16] MEDS: VIT B CMPLX 3/FA/VIT C/BIOTIN 1 TAB TABLET PO SCH (08:03)
[2017-04-16] MEDS: POLYVINYL ALCOHOL 15 ML BOTTLE EACHEYE SCH ×4 (08:03→21:03)
[2017-04-16] MEDS: SITAGLIPTIN PHOSPHATE 25 MG TABLET PO SCH (08:03)
[2017-04-16] MEDS: HEPARIN SODIUM, PORCINE 5000 UNITS/1 ML VIAL SQ SCH ×2 (08:05→21:04)
[2017-04-16] MEDS: NAPROXEN 500 MG TABLET PO PRN ×2 (08:06→21:05)
[2017-04-16] MEDS: GUAIFENESIN/D-METHORPHAN HB 5 ML UDC PO PRN ×2 (08:06→21:05)
[2017-04-16] MEDS: BUDESONIDE RESPULE INH 0.5 MG/2 ML AMPUL.NEB IH SCH ×2 (08:36→19:23)
[2017-04-16] MEDS: MINERAL OIL/PETROL OINT 396 GM JAR TP SCH ×2 (09:00→21:04)
[2017-04-16] MEDS: INSULIN LISPRO/ASPART 100 UNIT/ML CARTRIDGE SQ PRN ×2 (12:02→17:33)
[2017-04-16] MEDS: FLUOCINONIDE 0.05% CREAM 30 GM TUBE TP SCH (17:22)
[2017-04-16] MEDS: HYDROGEN PEROXIDE 480 ML BOTTLE TP SCH ×2 (17:22→21:04)
[2017-04-16] MEDS: ZINC OXIDE 30 GM TUBE TP SCH ×2 (17:25→21:04)
[2017-04-16] MEDS: ZINC OXIDE 56.7 GM TUBE TP SCH ×2 (17:28→21:04)
[2017-04-16 20:00] VITALS: BP 144/85
[2017-04-16] MEDS: DOCUSATE SODIUM 100 MG CAPSULE PO SCH (21:03)
[2017-04-16] MEDS: ASCORBIC ACID 500 MG TABLET PO SCH (21:03)
[2017-04-16] MEDS: GABAPENTIN 100 MG CAPSULE PO SCH (21:42)
[2017-04-16] MEDS: ATARAX 25 MG PO PRN (21:43)
[2017-04-16] MEDS: TEMAZEPAM 7.5 MG CAPSULE PO SCH (21:43)
[2017-04-16] MEDS: MONTELUKAST SODIUM (10MG) 10 MG TABLET PO SCH (21:43)
[2017-04-16] MEDS: [UNRECOGNIZED DRUG - OTHER] TP SCH (21:43)
[2017-04-17] MEDS: IPRATROPIUM NEB FS 0.5 MG/2.5 ML AMPUL.NEB IH SCH ×4 (01:44→20:10)
[2017-04-17] MEDS: ALBUTEROL FS 2.5 MG/3 ML VIAL.NEB NEB SCH ×4 (01:44→20:10)
[2017-04-17] MEDS: PANTOPRAZOLE 40 MG TABLET.DR PO SCH (05:17)
[2017-04-17] MEDS: INSULIN LISPRO/ASPART 100 UNIT/ML CARTRIDGE SQ PRN ×2 (06:44→17:33)
[2017-04-17] MEDS: BLOOD SUGAR DIAGNOSTIC 1 EACH STRIP VI SCH ×3 (06:44→17:31)
[2017-04-17 08:00] VITALS: BP 136/81
[2017-04-17] MEDS: VIT B CMPLX 3/FA/VIT C/BIOTIN 1 TAB TABLET PO SCH (08:24)
[2017-04-17] MEDS: POLYVINYL ALCOHOL 15 ML BOTTLE EACHEYE SCH ×4 (08:24→21:20)
[2017-04-17] MEDS: PROSOURCE / PROSTAT (PYXIS) 30 ML UDC PO SCH ×3 (08:24→17:00)
[2017-04-17] MEDS: SERTRALINE HCL 25 MG TABLET PO SCH (08:24)
[2017-04-17] MEDS: SITAGLIPTIN PHOSPHATE 25 MG TABLET PO SCH (08:24)
[2017-04-17] MEDS: HEPARIN SODIUM, PORCINE 5000 UNITS/1 ML VIAL SQ SCH ×2 (08:25→21:20)
[2017-04-17] MEDS: BUDESONIDE RESPULE INH 0.5 MG/2 ML AMPUL.NEB IH SCH ×2 (08:37→20:30)
[2017-04-17] MEDS: FLUOCINONIDE 0.05% CREAM 30 GM TUBE TP SCH (09:00)
[2017-04-17] MEDS: HYDROGEN PEROXIDE 480 ML BOTTLE TP SCH ×2 (09:00→21:21)
[2017-04-17] MEDS: ZINC OXIDE 56.7 GM TUBE TP SCH ×2 (09:00→21:21)
[2017-04-17] MEDS: ZINC OXIDE 30 GM TUBE TP SCH ×2 (09:00→21:21)
[2017-04-17] MEDS: MINERAL OIL/PETROL OINT 396 GM JAR TP SCH ×2 (09:00→21:21)
[2017-04-17] MEDS: predniSONE 10 MG TABLET PO SCH (12:31)
[2017-04-17] MEDS: GUAIFENESIN/D-METHORPHAN HB 5 ML UDC PO PRN ×2 (14:07→21:37)
[2017-04-17] MEDS: ATARAX 25 MG PO PRN (14:07)
[2017-04-17] MEDS: NAPROXEN 500 MG TABLET PO PRN (14:07)
[2017-04-17 20:00] VITALS: BP 152/86
[2017-04-17] MEDS: DOCUSATE SODIUM 100 MG CAPSULE PO SCH (21:20)
[2017-04-17] MEDS: ASCORBIC ACID 500 MG TABLET PO SCH (21:20)
[2017-04-17] MEDS: [UNRECOGNIZED DRUG - OTHER] TP SCH (21:21)
[2017-04-17] MEDS: MONTELUKAST SODIUM (10MG) 10 MG TABLET PO SCH (21:21)
[2017-04-17] MEDS: GABAPENTIN 100 MG CAPSULE PO SCH (21:21)
[2017-04-17] MEDS: TEMAZEPAM 7.5 MG CAPSULE PO SCH (21:21)
[2017-04-17] MEDS: TRAMADOL HCL 50 MG TABLET PO PRN (21:39)
[2017-04-18] MEDS: IPRATROPIUM NEB FS 0.5 MG/2.5 ML AMPUL.NEB IH SCH ×3 (00:34→13:30)
[2017-04-18] MEDS: ALBUTEROL FS 2.5 MG/3 ML VIAL.NEB NEB SCH ×3 (00:34→13:30)
[2017-04-18] MEDS: PANTOPRAZOLE 40 MG TABLET.DR PO SCH (06:09)
[2017-04-18] MEDS: BLOOD SUGAR DIAGNOSTIC 1 EACH STRIP VI SCH ×3 (06:40→16:53)
[2017-04-18] MEDS: INSULIN LISPRO/ASPART 100 UNIT/ML CARTRIDGE SQ PRN ×2 (06:41→11:32)
[2017-04-18 07:49] VITALS: BP 136/80
[2017-04-18 08:00] VITALS: BP 136/80
[2017-04-18] MEDS: VIT B CMPLX 3/FA/VIT C/BIOTIN 1 TAB TABLET PO SCH (08:18)
[2017-04-18] MEDS: SITAGLIPTIN PHOSPHATE 25 MG TABLET PO SCH (08:18)
[2017-04-18] MEDS: SERTRALINE HCL 25 MG TABLET PO SCH (08:18)
[2017-04-18] MEDS: HEPARIN SODIUM, PORCINE 5000 UNITS/1 ML VIAL SQ SCH ×2 (08:19→20:53)
[2017-04-18] MEDS: MINERAL OIL/PETROL OINT 396 GM JAR TP SCH ×2 (08:21→20:54)
[2017-04-18] MEDS: ZINC OXIDE 56.7 GM TUBE TP SCH ×2 (08:22→20:54)
[2017-04-18] MEDS: ZINC OXIDE 30 GM TUBE TP SCH ×2 (08:22→20:54)
[2017-04-18] MEDS: POLYVINYL ALCOHOL 15 ML BOTTLE EACHEYE SCH ×4 (08:22→20:53)
[2017-04-18] MEDS: PROSOURCE / PROSTAT (PYXIS) 30 ML UDC PO SCH ×3 (08:26→16:53)
[2017-04-18] MEDS: BUDESONIDE RESPULE INH 0.5 MG/2 ML AMPUL.NEB IH SCH (08:29)
[2017-04-18] MEDS: FLUOCINONIDE 0.05% CREAM 30 GM TUBE TP SCH (09:00)
[2017-04-18] MEDS: HYDROGEN PEROXIDE 480 ML BOTTLE TP SCH ×2 (11:30→20:54)
[2017-04-18 20:31] VITALS: BP 138/91
[2017-04-18] MEDS: ASCORBIC ACID 500 MG TABLET PO SCH (20:53)
[2017-04-18] MEDS: DOCUSATE SODIUM 100 MG CAPSULE PO SCH (20:53)
[2017-04-18] MEDS: GUAIFENESIN/D-METHORPHAN HB 5 ML UDC PO PRN (20:54)
[2017-04-18] MEDS: TRAMADOL HCL 50 MG TABLET PO PRN (20:55)
[2017-04-18] MEDS: GABAPENTIN 100 MG CAPSULE PO SCH (21:00)
[2017-04-18] MEDS: TEMAZEPAM 7.5 MG CAPSULE PO SCH (21:01)
[2017-04-18] MEDS: MONTELUKAST SODIUM (10MG) 10 MG TABLET PO SCH (21:01)
[2017-04-18] MEDS: [UNRECOGNIZED DRUG - OTHER] TP SCH (21:01)
[2017-04-19] MEDS: PANTOPRAZOLE 40 MG TABLET.DR PO SCH (06:38)
[2017-04-19] MEDS: BLOOD SUGAR DIAGNOSTIC 1 EACH STRIP VI SCH ×3 (06:38→16:35)
[2017-04-19] MEDS: INSULIN LISPRO/ASPART 100 UNIT/ML CARTRIDGE SQ PRN ×2 (06:39→16:36)
[2017-04-19] MEDS: ALBUTEROL FS 2.5 MG/3 ML VIAL.NEB NEB SCH ×3 (07:35→20:35)
[2017-04-19] MEDS: IPRATROPIUM NEB FS 0.5 MG/2.5 ML AMPUL.NEB IH SCH ×3 (07:35→20:35)
[2017-04-19] MEDS: POLYVINYL ALCOHOL 15 ML BOTTLE EACHEYE SCH ×4 (08:02→21:43)
[2017-04-19] MEDS: SERTRALINE HCL 25 MG TABLET PO SCH (08:02)
[2017-04-19] MEDS: VIT B CMPLX 3/FA/VIT C/BIOTIN 1 TAB TABLET PO SCH (08:02)
[2017-04-19] MEDS: PROSOURCE / PROSTAT (PYXIS) 30 ML UDC PO SCH ×3 (08:02→16:35)
[2017-04-19] MEDS: SITAGLIPTIN PHOSPHATE 25 MG TABLET PO SCH (08:02)
[2017-04-19] MEDS: MINERAL OIL/PETROL OINT 396 GM JAR TP SCH ×2 (08:08→21:43)
[2017-04-19] MEDS: HEPARIN SODIUM, PORCINE 5000 UNITS/1 ML VIAL SQ SCH ×2 (08:08→21:43)
[2017-04-19] MEDS: GUAIFENESIN/D-METHORPHAN HB 5 ML UDC PO PRN (08:09)
[2017-04-19] MEDS: BUDESONIDE RESPULE INH 0.5 MG/2 ML AMPUL.NEB IH SCH ×2 (09:14→20:40)
[2017-04-19] MEDS: NAPROXEN 500 MG TABLET PO PRN (09:46)
[2017-04-19] MEDS: predniSONE 10 MG TABLET PO SCH (13:31)
[2017-04-19] MEDS: HYDROGEN PEROXIDE 480 ML BOTTLE TP SCH ×2 (16:32→21:43)
[2017-04-19] MEDS: FLUOCINONIDE 0.05% CREAM 30 GM TUBE TP SCH (16:32)
[2017-04-19] MEDS: ZINC OXIDE 30 GM TUBE TP SCH ×2 (16:32→21:44)
[2017-04-19] MEDS: ZINC OXIDE 56.7 GM TUBE TP SCH ×2 (16:33→21:44)
[2017-04-19 19:58] VITALS: BP 110/70
[2017-04-19] MEDS: DOCUSATE SODIUM 100 MG CAPSULE PO SCH (21:43)
[2017-04-19] MEDS: ASCORBIC ACID 500 MG TABLET PO SCH (21:43)
[2017-04-19] MEDS: MONTELUKAST SODIUM (10MG) 10 MG TABLET PO SCH (21:44)
[2017-04-19] MEDS: TEMAZEPAM 7.5 MG CAPSULE PO SCH (21:44)
[2017-04-19] MEDS: GABAPENTIN 100 MG CAPSULE PO SCH (21:44)
[2017-04-19] MEDS: [UNRECOGNIZED DRUG - OTHER] TP SCH (22:00)
[2017-04-20] MEDS: ALBUTEROL FS 2.5 MG/3 ML VIAL.NEB NEB SCH ×4 (02:56→19:02)
[2017-04-20] MEDS: IPRATROPIUM NEB FS 0.5 MG/2.5 ML AMPUL.NEB IH SCH ×4 (02:56→19:02)
[2017-04-20] MEDS: PANTOPRAZOLE 40 MG TABLET.DR PO SCH (06:51)
[2017-04-20] MEDS: BLOOD SUGAR DIAGNOSTIC 1 EACH STRIP VI SCH ×3 (07:30→17:41)
[2017-04-20] MEDS: BUDESONIDE RESPULE INH 0.5 MG/2 ML AMPUL.NEB IH SCH ×2 (08:17→21:00)
[2017-04-20] MEDS: INSULIN LISPRO/ASPART 100 UNIT/ML CARTRIDGE SQ PRN ×3 (08:33→17:42)
[2017-04-20] MEDS: TRAMADOL HCL 50 MG TABLET PO PRN (08:37)
[2017-04-20] MEDS: VIT B CMPLX 3/FA/VIT C/BIOTIN 1 TAB TABLET PO SCH (08:52)
[2017-04-20] MEDS: SITAGLIPTIN PHOSPHATE 25 MG TABLET PO SCH (08:52)
[2017-04-20] MEDS: PROSOURCE / PROSTAT (PYXIS) 30 ML UDC PO SCH ×3 (08:52→17:41)
[2017-04-20] MEDS: POLYVINYL ALCOHOL 15 ML BOTTLE EACHEYE SCH ×4 (08:52→21:16)
[2017-04-20] MEDS: SERTRALINE HCL 25 MG TABLET PO SCH (08:52)
[2017-04-20] MEDS: HEPARIN SODIUM, PORCINE 5000 UNITS/1 ML VIAL SQ SCH ×2 (08:53→21:16)
[2017-04-20] MEDS: FLUOCINONIDE 0.05% CREAM 30 GM TUBE TP SCH (08:54)
[2017-04-20] MEDS: ZINC OXIDE 56.7 GM TUBE TP SCH ×2 (08:54→21:16)
[2017-04-20] MEDS: MINERAL OIL/PETROL OINT 396 GM JAR TP SCH ×2 (08:54→21:16)
[2017-04-20] MEDS: HYDROGEN PEROXIDE 480 ML BOTTLE TP SCH ×2 (08:54→21:16)
[2017-04-20] MEDS: GUAIFENESIN/D-METHORPHAN HB 5 ML UDC PO PRN (11:09)
[2017-04-20 19:52] VITALS: BP 154/75
[2017-04-20] MEDS: MONTELUKAST SODIUM (10MG) 10 MG TABLET PO SCH (21:16)
[2017-04-20] MEDS: GABAPENTIN 100 MG CAPSULE PO SCH (21:16)
[2017-04-20] MEDS: DOCUSATE SODIUM 100 MG CAPSULE PO SCH (21:16)
[2017-04-20] MEDS: TEMAZEPAM 7.5 MG CAPSULE PO SCH (21:16)
[2017-04-20] MEDS: [UNRECOGNIZED DRUG - OTHER] TP SCH (21:16)
[2017-04-20] MEDS: ASCORBIC ACID 500 MG TABLET PO SCH (21:16)
[2017-04-21] MEDS: IPRATROPIUM NEB FS 0.5 MG/2.5 ML AMPUL.NEB IH SCH ×4 (01:13→19:35)
[2017-04-21] MEDS: ALBUTEROL FS 2.5 MG/3 ML VIAL.NEB NEB SCH ×4 (01:13→19:35)
[2017-04-21] MEDS: PANTOPRAZOLE 40 MG TABLET.DR PO SCH (05:46)
[2017-04-21] MEDS: BLOOD SUGAR DIAGNOSTIC 1 EACH STRIP VI SCH ×3 (06:42→17:37)
[2017-04-21 07:52] VITALS: BP 140/89
[2017-04-21] MEDS: BUDESONIDE RESPULE INH 0.5 MG/2 ML AMPUL.NEB IH SCH ×2 (08:06→21:07)
[2017-04-21] MEDS: SERTRALINE HCL 25 MG TABLET PO SCH (08:44)
[2017-04-21] MEDS: SITAGLIPTIN PHOSPHATE 25 MG TABLET PO SCH (08:44)
[2017-04-21] MEDS: VIT B CMPLX 3/FA/VIT C/BIOTIN 1 TAB TABLET PO SCH (08:44)
[2017-04-21] MEDS: PROSOURCE / PROSTAT (PYXIS) 30 ML UDC PO SCH ×3 (08:44→17:37)
[2017-04-21] MEDS: POLYVINYL ALCOHOL 15 ML BOTTLE EACHEYE SCH ×4 (08:44→21:02)
[2017-04-21] MEDS: MINERAL OIL/PETROL OINT 396 GM JAR TP SCH ×2 (08:46→21:02)
[2017-04-21] MEDS: ZINC OXIDE 56.7 GM TUBE TP SCH ×2 (08:46→21:02)
[2017-04-21] MEDS: HYDROGEN PEROXIDE 480 ML BOTTLE TP SCH ×2 (08:46→21:02)
[2017-04-21] MEDS: FLUOCINONIDE 0.05% CREAM 30 GM TUBE TP SCH (08:46)
[2017-04-21] MEDS: HEPARIN SODIUM, PORCINE 5000 UNITS/1 ML VIAL SQ SCH ×2 (08:46→21:02)
[2017-04-21] MEDS: predniSONE 10 MG TABLET PO SCH (12:31)
[2017-04-21] MEDS: INSULIN LISPRO/ASPART 100 UNIT/ML CARTRIDGE SQ PRN ×2 (13:45→17:37)
[2017-04-21] MEDS: DOCUSATE SODIUM 100 MG CAPSULE PO SCH (21:02)
[2017-04-21] MEDS: ASCORBIC ACID 500 MG TABLET PO SCH (21:02)
[2017-04-21] MEDS: TEMAZEPAM 7.5 MG CAPSULE PO SCH (21:02)
[2017-04-21] MEDS: GABAPENTIN 100 MG CAPSULE PO SCH (21:02)
[2017-04-21] MEDS: MONTELUKAST SODIUM (10MG) 10 MG TABLET PO SCH (21:03)
[2017-04-21] MEDS: [UNRECOGNIZED DRUG - OTHER] TP SCH (21:03)
[2017-04-21 22:55] VITALS: BP 138/85
[2017-04-22] MEDS: IPRATROPIUM NEB FS 0.5 MG/2.5 ML AMPUL.NEB IH SCH ×4 (01:17→19:42)
[2017-04-22] MEDS: ALBUTEROL FS 2.5 MG/3 ML VIAL.NEB NEB SCH ×4 (01:17→19:42)
[2017-04-22] MEDS: PANTOPRAZOLE 40 MG TABLET.DR PO SCH (05:55)
[2017-04-22] MEDS: BLOOD SUGAR DIAGNOSTIC 1 EACH STRIP VI SCH ×3 (06:42→18:08)
[2017-04-22 07:54] VITALS: BP 157/100
[2017-04-22] MEDS: TRAMADOL HCL 50 MG TABLET PO PRN (08:12)
[2017-04-22] MEDS: GUAIFENESIN/D-METHORPHAN HB 5 ML UDC PO PRN (08:13)
[2017-04-22] MEDS: HEPARIN SODIUM, PORCINE 5000 UNITS/1 ML VIAL SQ SCH ×2 (08:18→21:50)
[2017-04-22] MEDS: VIT B CMPLX 3/FA/VIT C/BIOTIN 1 TAB TABLET PO SCH (08:18)
[2017-04-22] MEDS: POLYVINYL ALCOHOL 15 ML BOTTLE EACHEYE SCH ×4 (08:18→21:49)
[2017-04-22] MEDS: SITAGLIPTIN PHOSPHATE 25 MG TABLET PO SCH (08:18)
[2017-04-22] MEDS: SERTRALINE HCL 25 MG TABLET PO SCH (08:18)
[2017-04-22] MEDS: PROSOURCE / PROSTAT (PYXIS) 30 ML UDC PO SCH ×3 (08:18→16:56)
[2017-04-22] MEDS: FLUOCINONIDE 0.05% CREAM 30 GM TUBE TP SCH (08:19)
[2017-04-22] MEDS: HYDROGEN PEROXIDE 480 ML BOTTLE TP SCH ×2 (08:19→21:50)
[2017-04-22] MEDS: ZINC OXIDE 56.7 GM TUBE TP SCH ×2 (08:19→21:50)
[2017-04-22] MEDS: MINERAL OIL/PETROL OINT 396 GM JAR TP SCH ×2 (08:19→21:50)
[2017-04-22] MEDS: BUDESONIDE RESPULE INH 0.5 MG/2 ML AMPUL.NEB IH SCH ×2 (08:21→19:42)
[2017-04-22] MEDS: NAPROXEN 500 MG TABLET PO PRN (16:00)
[2017-04-22] MEDS: INSULIN LISPRO/ASPART 100 UNIT/ML CARTRIDGE SQ PRN (18:09)
[2017-04-22 19:58] VITALS: BP 147/96
[2017-04-22] MEDS: DOCUSATE SODIUM 100 MG CAPSULE PO SCH (21:49)
[2017-04-22] MEDS: ASCORBIC ACID 500 MG TABLET PO SCH (21:49)
[2017-04-22] MEDS: [UNRECOGNIZED DRUG - OTHER] TP SCH (21:50)
[2017-04-22] MEDS: TEMAZEPAM 7.5 MG CAPSULE PO SCH (21:50)
[2017-04-22] MEDS: GABAPENTIN 100 MG CAPSULE PO SCH (21:50)
[2017-04-22] MEDS: MONTELUKAST SODIUM (10MG) 10 MG TABLET PO SCH (21:50)
[2017-04-23] MEDS: ALBUTEROL FS 2.5 MG/3 ML VIAL.NEB NEB SCH ×4 (02:16→19:30)
[2017-04-23] MEDS: IPRATROPIUM NEB FS 0.5 MG/2.5 ML AMPUL.NEB IH SCH ×4 (02:16→19:30)
[2017-04-23] MEDS: PANTOPRAZOLE 40 MG TABLET.DR PO SCH (06:35)
[2017-04-23] MEDS: BLOOD SUGAR DIAGNOSTIC 1 EACH STRIP VI SCH ×3 (06:35→17:20)
[2017-04-23 08:16] VITALS: BP 141/84
[2017-04-23] MEDS: VIT B CMPLX 3/FA/VIT C/BIOTIN 1 TAB TABLET PO SCH (09:00)
[2017-04-23] MEDS: HEPARIN SODIUM, PORCINE 5000 UNITS/1 ML VIAL SQ SCH ×2 (09:00→21:22)
[2017-04-23] MEDS: FLUOCINONIDE 0.05% CREAM 30 GM TUBE TP SCH (09:00)
[2017-04-23] MEDS: SITAGLIPTIN PHOSPHATE 25 MG TABLET PO SCH (09:00)
[2017-04-23] MEDS: ZINC OXIDE 56.7 GM TUBE TP SCH ×2 (09:00→21:23)
[2017-04-23] MEDS: SERTRALINE HCL 25 MG TABLET PO SCH (09:00)
[2017-04-23] MEDS: PROSOURCE / PROSTAT (PYXIS) 30 ML UDC PO SCH ×3 (09:00→17:20)
[2017-04-23] MEDS: POLYVINYL ALCOHOL 15 ML BOTTLE EACHEYE SCH ×4 (09:00→21:22)
[2017-04-23] MEDS: HYDROGEN PEROXIDE 480 ML BOTTLE TP SCH ×2 (09:00→21:23)
[2017-04-23] MEDS: MINERAL OIL/PETROL OINT 396 GM JAR TP SCH ×2 (09:00→21:23)
[2017-04-23] MEDS: BUDESONIDE RESPULE INH 0.5 MG/2 ML AMPUL.NEB IH SCH ×2 (09:30→20:51)
[2017-04-23] MEDS: NAPROXEN 500 MG TABLET PO PRN ×2 (10:36→21:46)
[2017-04-23] MEDS: GUAIFENESIN/D-METHORPHAN HB 5 ML UDC PO PRN ×2 (10:36→21:23)
[2017-04-23] MEDS: INSULIN LISPRO/ASPART 100 UNIT/ML CARTRIDGE SQ PRN (11:55)
[2017-04-23] MEDS: predniSONE 10 MG TABLET PO SCH (12:31)
[2017-04-23 20:29] VITALS: BP 155/97
[2017-04-23] MEDS: DOCUSATE SODIUM 100 MG CAPSULE PO SCH (21:22)
[2017-04-23] MEDS: ASCORBIC ACID 500 MG TABLET PO SCH (21:22)
[2017-04-23] MEDS: GABAPENTIN 100 MG CAPSULE PO SCH (21:23)
[2017-04-23] MEDS: [UNRECOGNIZED DRUG - OTHER] TP SCH (21:23)
[2017-04-23] MEDS: MONTELUKAST SODIUM (10MG) 10 MG TABLET PO SCH (21:23)
[2017-04-23] MEDS: TEMAZEPAM 7.5 MG CAPSULE PO SCH (21:23)
[2017-04-23] MEDS: ATARAX 25 MG PO PRN (21:46)
[2017-04-24] MEDS: ALBUTEROL FS 2.5 MG/3 ML VIAL.NEB NEB SCH ×4 (01:44→19:12)
[2017-04-24] MEDS: IPRATROPIUM NEB FS 0.5 MG/2.5 ML AMPUL.NEB IH SCH ×4 (01:44→19:12)
[2017-04-24] MEDS: PANTOPRAZOLE 40 MG TABLET.DR PO SCH (05:17)
[2017-04-24] MEDS: BLOOD SUGAR DIAGNOSTIC 1 EACH STRIP VI SCH ×3 (06:37→17:30)
[2017-04-24] MEDS: INSULIN LISPRO/ASPART 100 UNIT/ML CARTRIDGE SQ PRN (06:37)
[2017-04-24 07:38] VITALS: BP 130/85
[2017-04-24] MEDS: SERTRALINE HCL 25 MG TABLET PO SCH (08:24)
[2017-04-24] MEDS: POLYVINYL ALCOHOL 15 ML BOTTLE EACHEYE SCH ×4 (08:24→21:23)
[2017-04-24] MEDS: SITAGLIPTIN PHOSPHATE 25 MG TABLET PO SCH (08:24)
[2017-04-24] MEDS: PROSOURCE / PROSTAT (PYXIS) 30 ML UDC PO SCH ×3 (08:24→17:00)
[2017-04-24] MEDS: VIT B CMPLX 3/FA/VIT C/BIOTIN 1 TAB TABLET PO SCH (08:24)
[2017-04-24] MEDS: HEPARIN SODIUM, PORCINE 5000 UNITS/1 ML VIAL SQ SCH ×2 (08:25→21:23)
[2017-04-24] MEDS: HYDROGEN PEROXIDE 480 ML BOTTLE TP SCH ×2 (08:25→21:24)
[2017-04-24] MEDS: MINERAL OIL/PETROL OINT 396 GM JAR TP SCH ×2 (08:25→21:24)
[2017-04-24] MEDS: ZINC OXIDE 56.7 GM TUBE TP SCH ×2 (08:25→21:24)
[2017-04-24] MEDS: BUDESONIDE RESPULE INH 0.5 MG/2 ML AMPUL.NEB IH SCH ×2 (08:38→21:46)
[2017-04-24] MEDS: GUAIFENESIN/D-METHORPHAN HB 5 ML UDC PO PRN ×2 (09:02→20:15)
[2017-04-24] MEDS: NAPROXEN 500 MG TABLET PO PRN (20:15)
[2017-04-24 20:30] VITALS: BP 140/79
[2017-04-24] MEDS: ASCORBIC ACID 500 MG TABLET PO SCH (21:23)
[2017-04-24] MEDS: DOCUSATE SODIUM 100 MG CAPSULE PO SCH (21:23)
[2017-04-24] MEDS: TEMAZEPAM 7.5 MG CAPSULE PO SCH (21:24)
[2017-04-24] MEDS: [UNRECOGNIZED DRUG - OTHER] TP SCH (21:24)
[2017-04-24] MEDS: MONTELUKAST SODIUM (10MG) 10 MG TABLET PO SCH (21:24)
[2017-04-24] MEDS: GABAPENTIN 100 MG CAPSULE PO SCH (21:24)
[2017-04-25] MEDS: ALBUTEROL FS 2.5 MG/3 ML VIAL.NEB NEB SCH ×4 (01:12→20:00)
[2017-04-25] MEDS: IPRATROPIUM NEB FS 0.5 MG/2.5 ML AMPUL.NEB IH SCH ×4 (01:12→20:00)
[2017-04-25] MEDS: PANTOPRAZOLE 40 MG TABLET.DR PO SCH (05:16)
[2017-04-25] MEDS: BLOOD SUGAR DIAGNOSTIC 1 EACH STRIP VI SCH ×3 (07:18→17:13)
[2017-04-25] MEDS: INSULIN LISPRO/ASPART 100 UNIT/ML CARTRIDGE SQ PRN ×2 (07:19→11:48)
[2017-04-25 07:46] VITALS: BP 145/92
[2017-04-25] MEDS: BUDESONIDE RESPULE INH 0.5 MG/2 ML AMPUL.NEB IH SCH ×2 (09:00→20:00)
[2017-04-25] MEDS: PROSOURCE / PROSTAT (PYXIS) 30 ML UDC PO SCH ×3 (09:00→17:13)
[2017-04-25] MEDS: VIT B CMPLX 3/FA/VIT C/BIOTIN 1 TAB TABLET PO SCH (09:00)
[2017-04-25] MEDS: POLYVINYL ALCOHOL 15 ML BOTTLE EACHEYE SCH ×4 (09:00→21:40)
[2017-04-25] MEDS: ZINC OXIDE 56.7 GM TUBE TP SCH (09:00)
[2017-04-25] MEDS: MINERAL OIL/PETROL OINT 396 GM JAR TP SCH (09:00)
[2017-04-25] MEDS: HEPARIN SODIUM, PORCINE 5000 UNITS/1 ML VIAL SQ SCH ×2 (09:00→21:42)
[2017-04-25] MEDS: SITAGLIPTIN PHOSPHATE 25 MG TABLET PO SCH (09:00)
[2017-04-25] MEDS: SERTRALINE HCL 25 MG TABLET PO SCH (09:00)
[2017-04-25] MEDS: HYDROGEN PEROXIDE 480 ML BOTTLE TP SCH (09:00)
[2017-04-25] MEDS: NAPROXEN 500 MG TABLET PO PRN ×2 (11:47→21:42)
[2017-04-25] MEDS: GUAIFENESIN/D-METHORPHAN HB 5 ML UDC PO PRN ×2 (11:48→21:42)
[2017-04-25] MEDS: predniSONE 10 MG TABLET PO SCH (12:47)
[2017-04-25 20:10] VITALS: BP 153/94
[2017-04-25] MEDS: DOCUSATE SODIUM 100 MG CAPSULE PO SCH (21:40)
[2017-04-25] MEDS: ASCORBIC ACID 500 MG TABLET PO SCH (21:40)
[2017-04-25] MEDS: GABAPENTIN 100 MG CAPSULE PO SCH (21:42)
[2017-04-25] MEDS: TEMAZEPAM 7.5 MG CAPSULE PO SCH (21:42)
[2017-04-25] MEDS: MONTELUKAST SODIUM (10MG) 10 MG TABLET PO SCH (21:42)
[2017-04-25] MEDS: [UNRECOGNIZED DRUG - OTHER] TP SCH (21:42)
[2017-04-25] MEDS: ATARAX 25 MG PO PRN (23:53)
[2017-04-26] MEDS: IPRATROPIUM NEB FS 0.5 MG/2.5 ML AMPUL.NEB IH SCH ×4 (01:21→20:07)
[2017-04-26] MEDS: ALBUTEROL FS 2.5 MG/3 ML VIAL.NEB NEB SCH ×4 (01:21→20:07)
[2017-04-26] MEDS: PANTOPRAZOLE 40 MG TABLET.DR PO SCH (05:36)
[2017-04-26] MEDS: BLOOD SUGAR DIAGNOSTIC 1 EACH STRIP VI SCH ×3 (06:50→17:26)
[2017-04-26] MEDS: INSULIN LISPRO/ASPART 100 UNIT/ML CARTRIDGE SQ PRN ×2 (06:51→17:28)
[2017-04-26 07:27] VITALS: BP 139/90
[2017-04-26] MEDS: BUDESONIDE RESPULE INH 0.5 MG/2 ML AMPUL.NEB IH SCH ×2 (08:26→20:07)
[2017-04-26] MEDS: VIT B CMPLX 3/FA/VIT C/BIOTIN 1 TAB TABLET PO SCH (08:56)
[2017-04-26] MEDS: SITAGLIPTIN PHOSPHATE 25 MG TABLET PO SCH (08:56)
[2017-04-26] MEDS: POLYVINYL ALCOHOL 15 ML BOTTLE EACHEYE SCH ×4 (08:56→21:00)
[2017-04-26] MEDS: PROSOURCE / PROSTAT (PYXIS) 30 ML UDC PO SCH ×3 (08:56→17:26)
[2017-04-26] MEDS: SERTRALINE HCL 25 MG TABLET PO SCH (08:56)
[2017-04-26] MEDS: MINERAL OIL/PETROL OINT 396 GM JAR TP SCH ×2 (08:57→21:00)
[2017-04-26] MEDS: HEPARIN SODIUM, PORCINE 5000 UNITS/1 ML VIAL SQ SCH ×2 (08:57→21:00)
[2017-04-26] MEDS: ATARAX 25 MG PO PRN (08:58)
[2017-04-26] MEDS: NAPROXEN 500 MG TABLET PO PRN ×2 (08:58→21:01)
[2017-04-26] MEDS: GUAIFENESIN/D-METHORPHAN HB 5 ML UDC PO PRN (08:58)
[2017-04-26] MEDS: HYDROGEN PEROXIDE 480 ML BOTTLE TP SCH ×2 (14:00→21:01)
[2017-04-26] MEDS: ZINC OXIDE 56.7 GM TUBE TP SCH ×2 (14:00→21:01)
[2017-04-26 19:59] VITALS: BP 131/81
[2017-04-26] MEDS: ASCORBIC ACID 500 MG TABLET PO SCH (21:00)
[2017-04-26] MEDS: DOCUSATE SODIUM 100 MG CAPSULE PO SCH (21:00)
[2017-04-26] MEDS: TEMAZEPAM 7.5 MG CAPSULE PO SCH (21:39)
[2017-04-26] MEDS: MONTELUKAST SODIUM (10MG) 10 MG TABLET PO SCH (21:39)
[2017-04-26] MEDS: GABAPENTIN 100 MG CAPSULE PO SCH (21:39)
[2017-04-26] MEDS: [UNRECOGNIZED DRUG - OTHER] TP SCH (21:39)
[2017-04-27] MEDS: ALBUTEROL FS 2.5 MG/3 ML VIAL.NEB NEB SCH ×3 (01:45→14:04)
[2017-04-27] MEDS: IPRATROPIUM NEB FS 0.5 MG/2.5 ML AMPUL.NEB IH SCH ×3 (01:45→14:03)
[2017-04-27] MEDS: PANTOPRAZOLE 40 MG TABLET.DR PO SCH (05:36)
[2017-04-27] MEDS: BLOOD SUGAR DIAGNOSTIC 1 EACH STRIP VI SCH ×3 (06:43→17:30)
[2017-04-27] MEDS: INSULIN LISPRO/ASPART 100 UNIT/ML CARTRIDGE SQ PRN ×3 (06:43→17:33)
[2017-04-27 07:45] VITALS: BP 152/93
[2017-04-27] MEDS: BUDESONIDE RESPULE INH 0.5 MG/2 ML AMPUL.NEB IH SCH (07:56)
[2017-04-27] MEDS: PROSOURCE / PROSTAT (PYXIS) 30 ML UDC PO SCH ×3 (09:00→17:00)
[2017-04-27] MEDS: MINERAL OIL/PETROL OINT 396 GM JAR TP SCH (09:00)
[2017-04-27] MEDS: POLYVINYL ALCOHOL 15 ML BOTTLE EACHEYE SCH ×3 (09:00→17:00)
[2017-04-27] MEDS: HYDROGEN PEROXIDE 480 ML BOTTLE TP SCH (09:00)
[2017-04-27] MEDS: ZINC OXIDE 56.7 GM TUBE TP SCH (09:00)
[2017-04-27] MEDS: SITAGLIPTIN PHOSPHATE 25 MG TABLET PO SCH (09:04)
[2017-04-27] MEDS: VIT B CMPLX 3/FA/VIT C/BIOTIN 1 TAB TABLET PO SCH (09:04)
[2017-04-27] MEDS: SERTRALINE HCL 25 MG TABLET PO SCH (09:04)
[2017-04-27] MEDS: HEPARIN SODIUM, PORCINE 5000 UNITS/1 ML VIAL SQ SCH (09:05)
[2017-04-27] MEDS: NAPROXEN 500 MG TABLET PO PRN (10:45)
[2017-04-27] MEDS: ATARAX 25 MG PO PRN (10:45)
[2017-04-27] MEDS: GUAIFENESIN/D-METHORPHAN HB 5 ML UDC PO PRN (10:45)
[2017-04-27] MEDS ORDERED: GLYCOPYRROLATE 1 MG TABLET PO PRN (11:30)
[2017-04-27] MEDS: predniSONE 10 MG TABLET PO SCH (11:51)
[2017-04-27] MEDS ORDERED: AMIODARONE 900 MG in IV D5W 482 ML IV PRN (18:30)
[2018-02-01] MEDS ORDERED: TUBERCULIN,PURIF.PROT.DERIV. 5 TU/0.1 ML VIAL ID SCH (09:00)
== END 2017-04-27 18:13 | disposition expired | DRG 133 ==
LOC: SA
PROVIDERS: ADMIT Internal Medicine Nephrology; ATTEND Internal Medicine Nephrology
PROC: 5A12012 Performance of Cardiac Output, Single, Manual (ICD-10-PCS; principal; 2017-04-27)
DX: J96.11 Chronic respiratory failure with hypoxia (principal); K31.6 Fistula of stomach and duodenum; N18.6 End stage renal disease; Z93.0 Tracheostomy status; I12.0 Hypertensive chronic kidney disease with stage 5 chronic kidney disease or end stage renal disease; E11.22 Type 2 diabetes mellitus with diabetic chronic kidney disease; R13.10 Dysphagia, unspecified; B35.1 Tinea unguium; D63.8 Anemia in other chronic diseases classified elsewhere; J44.9 Chronic obstructive pulmonary disease, unspecified; Z99.2 Dependence on renal dialysis; J45.909 Unspecified asthma, uncomplicated; G89.29 Other chronic pain; K21.9 Gastro-esophageal reflux disease without esophagitis; M19.90 Unspecified osteoarthritis, unspecified site; Z93.1 Gastrostomy status; M19.019 Primary osteoarthritis, unspecified shoulder; E11.40 Type 2 diabetes mellitus with diabetic neuropathy, unspecified; L60.3 Nail dystrophy; B35.4 Tinea corporis; L93.0 Discoid lupus erythematosus; Z79.4 Long term (current) use of insulin
CPT/HCPCS: 31720; 82962-TC; 94640-TC; 94762-TC; A4623; A7526; J1644; Q9963